=== PATIENT | female | born 1950 | race Hispanic/Latino ===

== ENCOUNTER 2019-08-31 10:44 | Observation (INO) | payer MEDICARE, OTHER ==
[~2019-08-31] VITALS: Ht 180.3 cm; Wt 81.6 kg
[~2019-08-31 10:44] MED LIST: AMIODARONE HCL200 MG PO; BUPROBAN150 MG; BUPROPION XL150 MG PO; CEFDINIR300 MG PO; CELEXA20 MG; GABAPENTIN300 MG PO; HUMALOG100 UNIT/1 SC; HYDROXYCHLOROQ200 MG; LANTUS100 UNITS/ SC; LASIX80 MG; LEVOTHYROXINE25 MCG PO; LEVOTHYROXINE50 MCG PO; LORAZEPAM0.5 MG PO; MECLIZINE HCL12.5 MG PO; NEUPRO1 EAC1 TD; NEURONTIN300 MG; NORVASC5 MG; PRAVASTATIN SOD40 MG; RENVELA800 MG; ULTRAM 50MG50 MG PO; ULTRAM50 MG PO; WARFARIN SODIUM3 MG PO; ZETIA10 MG PO
--- OUTSIDE RECORDS SUMMARY | 2019-08-31 10:47 | XMS REPORT ---
Author Author ERIN KOTHARI Organization Unknown Address Unknown Phone Care Team Providers Care Book Trimmer Name Role Phone TORRIE KOTHARI PP Unavailable Reason for Referral No Reason for Referral was given. History of Present Illness No HPI available. Problems * Normal Routine History And Physical Adult (V70.0); (Active) * Hypertension (401.9); (Active) * Diabetes Mellitus (250.00); (Active) * Atrial Fibrillation (427.31); (Active) * Adult Sleep Apnea (780.57); (Active) * Hypothyroidism (244.9); (Active) * Rheumatoid Arthritis (714.0); (Active) * Depression Chronic (311); (Active) Medication * Pravastatin Sodium 40 MG Oral Tablet (Active) * Amiodarone HCl 200 MG Oral Tablet; TAKE 1 TABLET DAILY. (Active) * Hydroxychloroquine Sulfate 200 MG Oral Tablet; TAKE 1 TABLET DAILY. (Active) * Warfarin Sodium 5 MG Oral Tablet; TAKE 1 TABLET DAILY (Active) * Furosemide 80 MG Oral Tablet; TAKE 1 TABLET DAILY. (Active) * BuPROPion HCl TABS; 150mg qd (Active) * Gabapentin 300 MG Oral Capsule; TAKE 1 CAPSULE BEDTIME (Active) * Lantus 100 UNIT/ML Subcutaneous Solution; INJECT 50 UNIT DAILY (Active) * Renvela 800 MG Oral Tablet; 4 tab per meal 2 tab per snack (Active) * Calcium 600 MG Oral Tablet; TAKE 1 TABLET DAILY. (Active) * Thyroid TABS; TAKE 1 TABLET DAILY (Active) * BuPROPion HCl ER (XL) 300 MG Oral Tablet Extended Release 24 Hour; TAKE 1 TABLET DAILY DIRECTED.; Start Date: 05/25/2013; End Date: 08/23/2013 (Active) Allergies and Adverse Reactions * Penicillins (Active) Past Medical History * History of Diabetes Mellitus (250.00); (Resolved) * History of Hypertension (401.9); (Resolved) * History of Anxiety (Symptom) (300.00); (Resolved) * History of Depression (311); (Resolved) * History of Arthritis (V13.4); (Resolved) * History of Gastric Ulcer (531.90); (Resolved) * History of Type 2 Diabetes Mellitus (250.00); (Resolved) * History of Functional Murmur (785.2); (Resolved) * History of Atrial Fibrillation (427.31); (Resolved) * History of Congestive Heart Failure (428.0); (Resolved) * History of Rheumatoid Arthritis (714.0); (Resolved) * History of Thyroid Disorder (246.9); (Resolved) * History of Vertigo (780.4); (Resolved) Procedures Procedure Procedure Date Date Completed Status Incisional Breast Biopsy - - Resolve d Dialysis - - Resolved Appendectomy - - Resolved Hysterectomy - - Resolved Section - - Resolved Tubal Ligation - - Resolved Neuroplasty Median Nerve At Carpal Tunnel - - Resolved Family History * Family history of Diabetes Mellitus (V18.0); (Active) * Paternal history of Hypertension (V17.49); (Active) * Maternal aunt's history of Colon Cancer (V16.0); (Active) * Maternal history of Type 2 Diabetes Mellitus (Active) * Paternal history of Type 2 Diabetes Mellitus (Active) Social History * Marital History - Currently (Active) * No History of Current Every Day Smoker (Denied) * Former Smoker (V15.82); (Active) * No History of Alcohol Use (Denied) * No History of Drug Use (Denied) * Physical Disability: (Active) Treatment Plan * [[facility]] TSH, 3RD GENERATION W/REFLEX TO FT4 05/25/2013 Routine * [[facility]] T4, FREE 05/25/2013 Routine * [[facility]] HEMOGLOBIN A1c 05/25/2013 Routine * [[facility]] CBC (INCLUDES DIFF/PLT) 05/25/2013 Routine * [Q] COMPREHENSIVE METABOLIC PANEL W/eGFR (REFL) 05/25/2013 Routine * [Q] LIPID PANEL WITH REFLEX TO DIRECT LDL 05/25/2013 Routine Advance Directives * No Advance Directives available. Encounters * AUDIT 05/26/2013
--- OUTSIDE RECORDS SUMMARY | 2019-08-31 10:47 | XMS REPORT ---
Author Author ERIN Sanchez Organization Unknown Address Unknown Phone Care Team Providers Care Production Officer Name Role Phone Jolie Sanchez PP Unavailable Reason for Referral No Reason for Referral was given. History of Present Illness No HPI available. Problems * Normal Routine History And Physical Adult (V70.0); (Active) * Diabetes Mellitus (250.00); (Active) * Hypertension (401.9); (Active) * Hypothyroidism (244.9); (Active) * Adult Sleep Apnea (780.57); (Active) * Rheumatoid Arthritis (714.0); (Active) * Atrial Fibrillation (427.31); (Active) * Depression Chronic (311); (Active) * Restless Legs Syndrome (333.94); (Active) Medication * Pravastatin Sodium 40 MG Oral Tablet; TAKE 1 TABLET DAILY AT BEDTIME.; Start Date: ; End Date: (Active) * Amiodarone HCl 200 MG Oral Tablet; TAKE 1 TABLET DAILY. (Active) * Warfarin Sodium 5 MG Oral Tablet; TAKE 1 TABLET DAILY (Active) * Lantus 100 UNIT/ML Subcutaneous Solution; INJECT 50 UNIT DAILY; Start Date: ; End Date: (Active) * Gabapentin 300 MG Oral Capsule; TAKE 1 CAPSULE BEDTIME; Start Date: ; End Date: (Active) * Renvela 800 MG Oral Tablet; 5 tab per meal 2 tab per snack (Active) * Furosemide 80 MG Oral Tablet; TAKE 1 TABLET TWICE DAILY (Active) * Hydroxychloroquine Sulfate 200 MG Oral Tablet; TAKE 1 TABLET TWICE DAILY.; Start Date: ; End Date: (Active) * Calcium 600 MG Oral Tablet; TAKE 1 TABLET DAILY. (Active) * BuPROPion HCl ER (XL) 300 MG Oral Tablet Extended Release 24 Hour; TAKE 1 TABLET DAILY DIRECTED.; Start Date: 05/25/2013; End Date: 08/23/2013 (Active) * Aspirin 81 MG Oral Tablet; TAKE 1 TABLET DAILY. (Active) * [place] Thyroid TABS; 5 mcg tab qd (Active) Allergies and Adverse Reactions * Penicillins [...] 3RD GENERATION W/REFLEX TO FT4 05/25/2013 Routine Advance Directives * No Advance Directives available. Encounters * AUDIT 06/08/2013
--- OUTSIDE RECORDS SUMMARY | 2019-08-31 10:47 | XMS REPORT ---
Author Author ERIN KOTHRAI Organization Unknown Address Unknown Phone Care Team Providers Care Automotive Maintenance Technician Name Role Phone TORRIE KOTHARI PP Unavailable [...] (427.31); (Active) * Depression Chronic (311); (Active) Medication [...] Capsule; TAKE 1 CAPSULE BEDTIME (Active) * Renvela 800 MG Oral Tablet; 4 tab per meal 2 tab per snack (Active) * Calcium 600 MG Oral Tablet; TAKE 1 TABLET DAILY. (Active) * Thyroid TABS; TAKE 1 TABLET DAILY (Active) * BuPROPion HCl ER (XL) 300 MG Oral Tablet Extended Release 24 Hour; TAKE 1 TABLET DAILY DIRECTED.; Start Date: 05/25/2013; End Date: 08/23/2013 (Active) * Lantus 100 UNIT/ML Subcutaneous Solution; INJECT 50 UNIT DAILY; Start Date: ; End Date: (Active) Allergies and Adverse Reactions * Penicillins [...] * Physical Disability: (Active) Treatment Plan * [[facility]] TSH, 3RD GENERATION W/REFLEX TO FT4 05/25/2013 Routine Advance Directives * No Advance Directives available. Encounters * AUDIT 06/01/2013
--- OUTSIDE RECORDS SUMMARY | 2019-08-31 10:47 | XMS REPORT ---
Author Author ERIN KOTHARI Organization Unknown Address Unknown Phone Care Team Providers Care Concrete Gun Operator Name Role Phone TORRIE KOTHARI PP Unavailable [...] * Physical Disability: (Active) Treatment Plan * [[facility]] TSH, 3RD GENERATION W/REFLEX TO FT4 05/25/2013 Routine Advance Directives * No Advance Directives available. Encounters * AUDIT 05/31/2013
--- OUTSIDE RECORDS SUMMARY | 2019-08-31 10:47 | XMS REPORT ---
Author Author ERIN Simpson Organization Unknown Address Unknown Phone Care Team Providers Care Marketing Strategy Lead Name Role Phone Ling Simpson PP Unavailable Reason for Referral No Reason for Referral was given. History of Present Illness No HPI available. Problems * Normal Routine History And Physical Adult (V70.0); (Active) * Hypertension (401.9); (Active) * Atrial Fibrillation (427.31); (Active) * Rheumatoid Arthritis (714.0); (Active) * Restless Legs Syndrome (333.94); (Active) * Vertigo (780.4); (Active) * Diabetes Mellitus (250.00); (Active) * Adult Sleep Apnea (780.57); (Active) * Hypothyroidism (244.9); (Active) * Depression Chronic (311); (Active) Medication * Pravastatin Sodium 40 MG Oral Tablet; TAKE 1 TABLET DAILY AT BEDTIME.; Start Date: ; End Date: (Active) * Amiodarone HCl 200 MG Oral Tablet; TAKE 1 TABLET DAILY. (Active) * Warfarin Sodium 5 MG Oral Tablet; TAKE 1 TABLET DAILY (Active) * Gabapentin 300 MG Oral Capsule; TAKE 1 CAPSULE BEDTIME; Start Date: ; End Date: (Active) * Lantus 100 UNIT/ML Subcutaneous Solution; INJECT 50 UNIT each morning and 10 units each evening; Start Date: ; End Date: (Active) * Renvela 800 MG Oral Tablet; 5 tab per meal 2 tab per snack (Active) * Furosemide 80 MG Oral Tablet; TAKE 1 TABLET TWICE DAILY (Active) * Hydroxychloroquine Sulfate 200 MG Oral Tablet; TAKE 1 TABLET TWICE DAILY.; Start Date: ; End Date: (Active) * BuPROPion HCl ER (XL) 300 MG Oral Tablet Extended Release 24 Hour; TAKE 1 TABLET DAILY DIRECTED.; Start Date: 05/25/2013; End Date: 08/23/2013 (Active) * Calcium 600 MG Oral Tablet; TAKE 1 TABLET DAILY. (Active) * Aspirin 81 MG Oral Tablet; TAKE 1 TABLET DAILY. (Active) * Levothyroxine Sodium 25 MCG Oral Tablet; TAKE 1 TABLET DAILY.; Start Date: 06/08/2013; End Date: (Active) * HumaLOG 100 UNIT/ML Subcutaneous Solution; Inject 10-20 units as directed; Start Date: 06/08/2013; End Date: (Active) * Meclizine HCl 12.5 MG Oral Tablet; TAKE 1 TABLET TWICE DAILY PRN dizziness; Start Date: 06/08/2013; End Date: (Active) Allergies and Adverse Reactions [...] * Physical Disability: (Active) Treatment Plan * [[facility]] TSH, 3RD GENERATION W/REFLEX TO FT4 05/25/2013 Routine Advance Directives * No Advance Directives available. Encounters * AUDIT 07/04/2013 * SHIRA, Provider: JEFF VALLEJO, Status: Emeterio, Time: 11:15 AM 07/04/2013 * SHIRA, Provider: JEFF VALLEJO, Status: Emeterio, Time: 9:15 AM 07/20/2013
--- OUTSIDE RECORDS SUMMARY | 2019-08-31 10:47 | XMS REPORT ---
Author Author YONI ERIN JEFF Organization Unknown Address Unknown Phone Care Team Providers Care Armature Winder Repair Helper Name Role Phone JEFF VALLEJO PP Unavailable Reason for Referral No Reason [...] Tablet; TAKE 1 TABLET DAILY. (Active) * Gabapentin 300 MG Oral Capsule; TAKE 1 CAPSULE BEDTIME (Active) * Renvela 800 MG Oral Tablet; 4 tab per meal 2 tab per snack (Active) * Lantus 100 UNIT/ML Subcutaneous Solution; [...] * Physical Disability: (Active) Treatment Plan * [[facility]] TSH, 3RD GENERATION W/REFLEX TO FT4 05/25/2013 Routine Advance Directives * No Advance Directives available. Encounters * AUDIT 06/06/2013
--- OUTSIDE RECORDS SUMMARY | 2019-08-31 10:47 | XMS REPORT | Continuity of Care Document ---
Author Author [facility] Organization [facility] Address Unknown Phone Unavailable Care Team Providers Care Disaster Director Name Role Phone [employer] Unavailable Un available Problems Problem Status Onset Date Classification Date Reported Comments Source Hypertension Active 07/04/2013 [facility] Diabetes Mellitus Active 07/04/2013 [facility] Atrial Fibrillation Active 07/04/2013 [facility] Adult Sleep Apnea Active 07/04/2013 [facility] Hypothyroidism Active 07/04/2013 [facility] Rheumatoid Arthritis Active 07/04/2013 [facility] Depression Chronic Active 07/04/2013 [facility] Restless Legs Syndrome Active 07/04/2013 [facility] Vertigo Active 07/04/2013 [facility] Medications Medication Details Route Status Patient Instructions Ordering Provider Order Date Source Levothyroxine Sodium 25 MCG Oral Tablet ; Start Date: 06/08/2013; End Date: (Active) Active 06/08/2013 [facility] HumaLOG 100 UNIT/ML Subcutaneous Solution ; Start Date: 06/08/2013; End Date: (Active) Active 06/08/2013 [facility] Meclizine HCl 12.5 MG Oral Tablet ; Start Date: 06/08/2013; End Date: (Active) Active 06/08/2013 [facility] BuPROPion HCl ER (XL) 300 MG Oral Tablet Extended Release 24 Hour ; Start Date: 05/25/2013; End Date: 07/28 (Active) Active 05/25/2013 [facility] BuPROPion HCl ER (XL) 300 MG Oral Tablet Extended Release 24 Hour ; Start Date: 05/25/2013; End Date: 07/28 (Active) Active 05/25/2013 [facility] Lantus 100 UNIT/ML Subcutaneous Solution ; Start Date: ; End Date: (Active) Inactive [facility] Pravastatin Sodium 40 MG Oral Tablet ; Start Date: ; End Date: (Active) Inactive [facility] Gabapentin 300 MG Oral Capsule ; Start Date: ; End Date: (Active) Inactive [facility] Hydroxychloroquine Sulfate 200 MG Oral Tablet ; Start Date: ; End Date: (Active) Inactive [facility] Pravastatin Sodium 40 MG Oral Tablet (Active) Active [facility] Amiodarone HCl 200 MG Oral Tablet (Active) Active [facility] Hydroxychloroquine Sulfate 200 MG Oral Tablet (Active) Active [facility] Warfarin Sodium 5 MG Oral Tablet (Active) Active [facility] Furosemide 80 MG Oral Tablet (Active) Active [facility] BuPROPion HCl TABS (Active) Active [facility] Gabapentin 300 MG Oral Capsule (Active) Active [facility] Lantus 100 UNIT/ML Subcutaneous Solution (Active) Active [facility] Renvela 800 MG Oral Tablet (A ctive) Active [facility] Calcium 600 MG Oral Tablet (A ctive) Active [facility] Thyroid TABS (Active) Active [facility] Aspirin 81 MG Oral Tablet (Ac tive) Active [facility] [place] Thyroid TABS (Active) Active [facility] Allergies, Adverse Reactions, Alerts Substance Category Reaction Severity Reaction type Status Date Reported Comments Source Penicillins drug allergy drug allergy Active [facility] Immunizations No Data Provided for This Section Results No Data Provided for This Section Pathology Reports No Data Provided for This Section Diagnostic Reports No Data Provided for This Section Consultation Notes No Data Provided for This Section Discharge Summaries No Data Provided for This Section History and Physicals No Data Provided for This Section Vital Signs No Data Provided for This Section Encounters Location Location Details Encounter Type Encounter Number Reason For Visit Attending Provider ADM Date DC Date Status Source AUDIT [id number] 05/26/2013 05/26/2013 [facility] AUDIT [id number] 05/31/2013 05/31/2013 [facility] AUDIT [id number] 06/01/2013 06/01/2013 [facility] AUDIT [id number] 06/06/2013 06/06/2013 [facility] AUDIT [id number] 06/08/2013 06/08/2013 [facility] AUDIT [id number] 07/04/2013 07/04/2013 [facility] Shante SILVA monique: JEFF VALLEJO, Status: Pen, Time: 11:15 AM [id number] 07/05/19 14 07/04/2013 [facility] Shante SILVA monique: [email or web address], Status: Pen, Time: 9:15 AM [id number] 07/21/19 14 07/04/2013 [facility] Procedures No Data Provided for This Section Assessment and Plan No Data Provided for This Section Plan of Care Plan of Care Date Source [[facility]] TSH, 3RD GENERATION W/REFLEX TO FT 4 05/25/2013 Routine 07/04/2013 [facility] [QL] TSH, 3RD GENERATION W/REFLEX TO FT 4 05/25/2013 Routine 06/08/2013 [facility] [QL] TSH, 3RD GENERATION W/REFLEX TO FT 4 05/25/2013 Routine 06/06/2013 [facility] [QL] TSH, 3RD GENERATION W/REFLEX TO FT 4 05/25/2013 Routine 06/01/2013 [facility] [[facility]] TSH, 3RD GENERATION W/REFLEX TO FT 4 05/25/2013 Routine 05/31/2013 [facility] [QL] TSH, 3RD GENERATION W/REFLEX TO FT 4 05/25/2013 Routine[[facility]] T4, FREE 05/25/2013 Routine[[facility]] HEMOGLOBIN A1c 05/25/2013 Routine[[facility]] CBC (INCLUDES DIFF/PLT) 05/25/2013 Routine[Q] COMPREHENSIVE METABOLIC PANEL W/eGFR (REFL) 05/25/2013 Routine[Q] LIPID PANEL WITH REFLEX TO DIRECT LDL 05/25/2013 Routine 05/26/2013 [facility] Social History Social History Date Source Marital History - Currently (Active) No History of Current Every Day Smoker (Denied) Former Smoker (V15.82); (Active) No History of Alcohol Use (Denied) No History of Drug Use (Denied) Physical Disability: (Active) 07/04/2013 [facility] Family History Value Date S ource Family history of Diabetes Mellitus (V18 .0); (Active) Paternal history of Hypertension (V17.49); (Active) Maternal aunt's history of Colon Cancer (V16.0); (Active) Maternal history of Type 2 Diabetes Mellitus (Active) Paternal history of Type 2 Diabetes Mellitus (Active) 07/04/2013 [facility] Family history of Diabetes Mellitus (V18 .0); (Active) Paternal history of Hypertension (V17.49); (Active) Maternal aunt's history of Colon Cancer (V16.0); (Active) Maternal history of Type 2 Diabetes Mellitus (Active) Paternal history of Type 2 Diabetes Mellitus (Active) 06/08/2013 [facility] Family history of Diabetes Mellitus (V18 .0); (Active) Paternal history of Hypertension (V17.49); (Active) Maternal aunt's history of Colon Cancer (V16.0); (Active) Maternal history of Type 2 Diabetes Mellitus (Active) Paternal history of Type 2 Diabetes Mellitus (Active) 06/06/2013 [facility] Family history of Diabetes Mellitus (V18 .0); (Active) Paternal history of Hypertension (V17.49); (Active) Maternal aunt's history of Colon Cancer (V16.0); (Active) Maternal history of Type 2 Diabetes Mellitus (Active) Paternal history of Type 2 Diabetes Mellitus (Active) 06/01/2013 [facility] Family history of Diabetes Mellitus (V18 .0); (Active) Paternal history of Hypertension (V17.49); (Active) Maternal aunt's history of Colon Cancer (V16.0); (Active) Maternal history of Type 2 Diabetes Mellitus (Active) Paternal history of Type 2 Diabetes Mellitus (Active) 05/31/2013 [facility] Family history of Diabetes Mellitus (V18 .0); (Active) Paternal history of Hypertension (V17.49); (Active) Maternal aunt's history of Colon Cancer (V16.0); (Active) Maternal history of Type 2 Diabetes Mellitus (Active) Paternal history of Type 2 Diabetes Mellitus (Active) 05/26/2013 [facility] Advance Directives Order Name Results Value Date Source Advance Directives Advance Dir ectives No Advance Directives available. 07/04/2013 [facility] Advance Directives Advance Dir ectives No Advance Directives available. 06/08/2013 [facility] Advance Directives Advance Dir ectives No Advance Directives available. 06/06/2013 [facility] Advance Directives Advance Dir ectives No Advance Directives available. 06/01/2013 [facility] Advance Directives Advance Dir ectives No Advance Directives available. 05/31/2013 [facility] Advance Directives Advance Dir ectives No Advance Directives available. 05/26/2013 [facility] Functional Status No Data Provided for This Section
--- OUTSIDE RECORDS SUMMARY | 2019-08-31 10:50 | XMS REPORT | Continuity of Care Document ---
Author Author [facility] t Organization [facility] Address [address] [place] [address] Phone Unavailable Care Team Providers Care Data Conversion Operator Name Role Phone Gene RUSSELL PCP Melody LEI Attphys Unavailable Payers Payer Name Policy Type Policy Number Effective Date Expiration Date [facility] Medicare A & B [id number] 2011 00:00:00 [facility] Problems Condition Name Condition Details Condition Category Status Onset Date Resolution Date Last Treatment Date Treating Clinician Comments Source End stage renal failure on dialysis ESRD (end stage renal di sease) on dialysis Problem Active [facility] Hyperkalemia Hyperkalemia Problem Active [facility] Hypervolemia Volume overload Problem Active [facility] Weakness Weakness Problem Active [facility] Hypertension Hype rtension Active 07/04/2013 [facility] Problem Active 2013-07-04 14:19:12 [facility] Diabetes Mellitus Diab etes Mellitus Active 07/04/2013 [facility] Problem Active 2013-07-04 14:19:12 [facility] Atrial Fibrillation Atri al Fibrillation Active 07/04/2013 [facility] Problem Active 2013-07-04 14:19:12 [facility] Adult Sleep Apnea Adul t Sleep Apnea Active 07/04/2013 [facility] Problem Active 2013-07-04 14:19:12 [facility] Hypothyroidism Hypo thyroidism Active 07/04/2013 [facility] Problem Active 2013-07-04 14:19:12 [facility] Rheumatoid Arthritis Rheu matoid Arthritis Active 07/04/2013 [facility] Problem Active 2013-07-04 14:19:12 [facility] Depression Chronic Depr ession Chronic Active 07/04/2013 [facility] Problem Active 2013-07-04 14:19:12 [facility] Restless Legs Syndrome Rest less Legs Syndrome Active 07/04/2013 [facility] Problem Active 2013-07-04 14:19:12 [facility] Vertigo Vert igo Active 07/04/2013 [facility] Problem Active 2013-07-04 14:19:12 [facility] Allergies, Adverse Reactions, Alerts Allergy Name Allergy Type Status Severity Reaction(s) Onset Date Inacti ve Date Treating Clinician Comments Source Penicillins DA Active SV 2019-04-14 00:00:00 [facility] morphine DA Active [place] 2019-04-14 00:00:00 [facility] Penicillins DA Active U 2019-03-05 00:00:00 [facility] Penicillins DA Active U 2019-03-02 00:00:00 [facility] Penicillins DA Active SV 2018-11-14 00:00:00 [facility] morphine DA Active MO 2018-11-14 00:00:00 [facility] Penicillins DA Active SV 2018-09-14 00:00:00 [facility] morphine DA Active MO 2018-09-14 00:00:00 [facility] morphine DA Active MO 2018-09-07 00:00:00 [facility] Penicillins DA Active SV 2018-09-03 00:00:00 [facility] Penicillins DA Active SV 2018-08-25 00:00:00 [facility] Penicillins DA Active SV 2018-01-10 00:00:00 [facility] Penicillins DA Active SV 2017-11-19 00:00:00 [facility] Penicillin Allergy to Substance Active Mild 2009-02-21 00:00:00 [facility] Penicillins Penicillins Active [facility] Social History Social Habit Start Date Stop Date Quantity Comments Source Social History 2013-07-04 14:19:12 2013-07-04 14:19:12 [facility] Medications Ordered Medication Name Filled Medication Name Start Date Stop Da te Current Medication? Ordering Clinician Indication Dosage Frequency Signature (SIG) Comments Components Source Levothyroxine Sodium 25 Mcg Tablet Levothyroxine Sodium 25 M cg Tablet 2019-04-11 00:00:00 Yes Sandip Cheng Fruit Culler 25 Daily@06 [facility] Tramadol Hcl (Ultram 50MG*) 50 Mg Tab Tramadol Hcl (Ultram 5 0MG*) 50 Mg Tab 2019-04-11 00:00:00 Yes Sandip Cheng Fruit Culler 50 Every 6 Hours as needed for Mild Pain (1-3) Or Fever>100.8 [facility] Amiodarone HCl 200 MG Oral Tablet 2013-07-04 14:19:12 Yes (Active) [facility] Warfarin Sodium 5 MG Oral Tablet 2013-07-04 14:19:12 Yes (Active) [facility] Furosemide 80 MG Oral Tablet 2013-07-04 14:19:12 Yes (Active) [facility] Renvela 800 MG Oral Tablet 2013-07-04 14:19:12 Yes (Active) [facility] Calcium 600 MG Oral Tablet 2013-07-04 14:19:12 Yes (Active) [facility] Aspirin 81 MG Oral Tablet 2013-07-04 14:19:12 Yes (Active) [facility] Holcomb Thyroid TABS 2013-06-08 15:02:07 Yes (Active) [facility] Levothyroxine Sodium 25 MCG Oral Tablet 2013-06-08 05:00:00 Yes ; Start Date: 06/08/2013; End Date: (Active) [facility] HumaLOG 100 UNIT/ML Subcutaneous Solution 2013-06-08 05:00:00 Yes ; Start Date: 06/08/2013; End Date: (Active) [facility] Meclizine HCl 12.5 MG Oral Tablet 2013-06-08 05:00:00 Yes ; Start Date: 06/08/2013; End Date: (Active) [facility] Pravastatin Sodium 40 MG Oral Tablet 2013-06-06 13:47:48 Ye s (Active) [facility] Hydroxychloroquine Sulfate 200 MG Oral Tablet 2013-06-06 13:47:4 8 Yes (Active) [facility] Gabapentin 300 MG Oral Capsule 2013-06-06 13:47:48 Yes (Active) [facility] Thyroid TABS 2013-06-06 13:47:48 Yes (Activ e) [facility] BuPROPion HCl TABS 2013-06-01 17:06:21 Yes (Active) [facility] Lantus 100 UNIT/ML Subcutaneous Solution 2013-05-31 20:03:28 Yes (Active) [facility] BuPROPion HCl ER (XL) 300 MG Oral Tablet Extended Release 24 Hour 2013-05-25 06:00:00 Yes ; Start Date: 4; End Date: 08/23/2013 (Active) [facility] BuPROPion HCl ER (XL) 300 MG Oral Tablet Extended Release 24 Hour 2013-05-25 06:00:00 Yes ; Start Date: 4; End Date: 08/23/2013 (Active) [facility] Lantus 100 UNIT/ML Subcutaneous Solution Yes ; Start Date: ; End Date: (Active) [facility] Pravastatin Sodium 40 MG Oral Tablet Ye s ; Start Date: ; End Date: (Active) [facility] Gabapentin 300 MG Oral Capsule Yes ; Start Date: ; End Date: (Active) [facility] Hydroxychloroquine Sulfate 200 MG Oral Tablet 06:00:0 0 Yes ; Start Date: ; End Date: (Active) [facility] Amiodarone Hcl 200 Mg Tablet Amiodarone Hcl 200 Mg Tablet Y es 100 Daily [facility] Bupropion Hcl (Bupropion Xl) 150 Mg Tab.er.24h Bupropi on Hcl (Bupropion Xl) 150 Mg Tab.er.24h Yes 300 Daily [facility] Ezetimibe (Zetia) 10 Mg Tablet Ezetimibe (Zetia) 10 Mg Tablet Yes 10 Daily [facility] Furosemide (Lasix) 80 Mg Tablet Furosemide (Lasix) 80 Mg Tablet Yes Daily [facility] Gabapentin 300 Mg Capsule Gabapentin 300 Mg Capsule Yes 300 Twice A Day [facility] Insulin Glargine (Lantus) 100 Units/Ml Ml Insulin Glar gine (Lantus) 100 Units/Ml Ml Yes 45 Bedtime [facility] Insulin Lispro (Humalog) 100 Unit/1 Ml Cartridge Insul in Lispro (Humalog) 100 Unit/1 Ml Cartridge Yes 12 Three Times A Day [facility] Levothyroxine Sodium 50 Mcg Tablet Levothyroxine Sodium 50 Mcg Tablet Yes 25 Daily [facility] Lorazepam 0.5 Mg Tablet Lorazepam 0.5 Mg Tablet Yes .5 Twice A Day [facility] Meclizine Hcl 12.5 Mg Tablet Meclizine Hcl 12.5 Mg Tablet Y es 25 Three Times A Day as needed for Prn [facility] Pravastatin Sodium 40 Mg Tablet Pravastatin Sodium 40 Mg Tablet Yes Bedtime [facility] Rotigotine (Neupro) 1 Each Patch.td24 Rotigotine (Neupro) 1 Each Pa tch.td24 Yes 4 Daily [facility] Sevelamer Hcl (Renvela) 800 Mg Tab Sevelamer Hcl (Renvela) 800 Mg Tab Yes Three Tabs Withmeal [facility] Tramadol Hcl (Ultram) 50 Mg Tablet Tramadol Hcl (Ultram) 50 Mg Tablet Yes 50 Every 6 Hours [facility] Warfarin Sodium 3 Mg Tablet Warfarin Sodium 3 Mg Tablet Yes 6 Daily [facility] Cefdinir (Omnicef) 300 Mg Capsule, 300 Mg Oral Cefdini r (Omnicef) 300 Mg Capsule, 300 Mg Oral 2019-04-11 00:00:00 No 300 Queenie ry Other Day [facility] Amlodipine Besylate (Norvasc) 5 Mg Tab, Amlodipine Besylate (Norvasc) 5 Mg Tab, 2016-01-25 00:00:00 No Daily [facility] Bupropion Hcl (Buproban) 150 Mg Tablet.er, Bupropion H cl (Buproban) 150 Mg Tablet.er, 2016-01-25 00:00:00 No Daily [facility] Citalopram Hydrobromide (Celexa) 20 Mg Tablet, Citalop tonya Hydrobromide (Celexa) 20 Mg Tablet, 2016-01-25 00:00:00 No Two Tabs D aily [facility] Gabapentin (Neurontin) 300 Mg Capsule, Gabapentin (Neurontin) 30 0 Mg Capsule, 2016-01-25 00:00:00 No Bedtime [facility] Hydroxychloroquine Sulfate 200 Mg Tablet, Hydroxychlor oquine Sulfate 200 Mg Tablet, 2016-01-25 00:00:00 No Daily [facility] Procedures This patient has no known procedures. Plan of Care Planned Activity Planned Date Details Comments Source Future Scheduled Test Plan of Care [code = 42129-8] [facility] Future Scheduled Test Plan of Care [code = 75378-8] [facility] Future Scheduled Test Plan of Care [code = 41877-3] [facility] Future Scheduled Test Plan of Care [code = 83428-7] [facility] Future Scheduled Test Plan of Care [code = 16501-5] [facility] Scheduled Test Plan of Care [code = 60964-1] [facility] Encounters Start Date/Time End Date/Time Encounter Type Admission Type Attendi [facility] Facility Care Department Encounter ID Source 2019-04-09 13:37:00 2019-04-11 12:22:00 Discharged Inpatient (obs) 1 DANA LEI [facility] [id number] [facility] 2019-04-06 12:09:00 2019-04-06 15:37:00 Departed Emergency Room [facility] [id number] [facility] 2013-07-20 09:15:00 2013-07-04 14:19:12 EGV, Provider: Abdiel VALLEJO, Status: Pen, Time: 9:15 AM IEALT MHIEALT [id number] [facility] 2013-07-04 11:15:00 2013-07-04 14:19:12 EGV, Provider: Abdiel VALLEJO, Status: Pen, Time: 11:15 AM MHIEALT MHIEALT [id number] [facility] 2013-07-04 09:19:13 2013-07-04 14:19:12 AUDIT MHIEALT MHIEALT [id number] [facility] 2013-07-04 09:19:13 2013-07-04 09:19:12 Outpatient MHIEA LT MHIEALT [id number] 2013-06-08 10:02:07 2013-06-08 15:02:07 AUDIT MHIEALT MHIEALT [id number] [facility] 2013-06-08 10:02:07 2013-06-08 10:02:07 Outpatient MHIEA LT MHIEALT [id number] 2013-06-06 08:47:49 2013-06-06 13:47:48 AUDIT MHIEALT MHIEALT [id number] [facility] 2013-06-06 08:47:49 2013-06-06 08:47:48 Outpatient MHIEA LT MHIEALT [id number] 2013-06-01 11:06:22 2013-06-01 17:06:21 AUDIT MHIEALT MHIEALT [id number] [facility] 2013-06-01 11:06:22 2013-06-01 11:06:21 Outpatient MHIEA LT MHIEALT [id number] 2013-05-31 14:03:28 2013-05-31 20:03:28 AUDIT MHIEALT MHIEALT [id number] [facility] 2013-05-31 14:03:28 2013-05-31 14:03:28 Outpatient MHIEA LT MHIEALT [id number] 2013-05-26 11:21:12 2013-05-26 17:21:12 AUDIT MHIEALT MHIEALT [id number] [facility] 2013-05-26 11:21:12 2013-05-26 11:21:12 Outpatient MHIEA LT MHIEALT [id number] Results Test Description Test Time Test Comments Results Result Comments Source PROTHROMBIN TIME 2019-05-30 16:51:00 Test Item PROTHROMBIN TIME PATIENT (test code = PTP) 14.0 seconds 9.0-14.0 N INTERNATIONAL NORMAL RATIO (test code = INR) 1.2 0.8-1.2 N The therapeutic range for oral anticoagulant therapy formost indications is an international normalized ratio (INR)of between 2.0 and 3.0. The recommended therapeutic INRrange for various clinical situations is listed below: Clinical Situation INR range Pulmonary e mbolism treatment (2.0-3.0)Venous thrombosis treatmentVenous thrombosis prophylaxis (high risk surgery)Prevention of systemic embolism from: Acute myocardial infarction Valvular heart disease Atrial fibrillation Mechanical prosthetic heart valves (2.5-3.5) PROTHROMBIN [id number] 13:24:00* Test Item Value Reference Range Interpretation Comments PROTHROMBIN TIME PATIENT (test code = PTP) 16.0 seconds 9.0-14.0 H INTERNATIONAL NORMAL RATIO (test code = INR) 1.4 0.8-1.2 H The therapeutic range for oral anticoagulant therapy formost indications is an international normalized ratio (INR)of between 2.0 and 3.0. The recommended therapeutic INRrange for various clinical situations is listed below: Clinical Situation INR range Pulmonary e mbolism treatment (2.0-3.0)Venous thrombosis treatmentVenous thrombosis prophylaxis (high risk surgery)Prevention of systemic embolism from: Acute myocardial infarction Valvular heart disease Atrial fibrillation Mechanical prosthetic heart valves (2.5-3.5) [id number] 17:13:00* Test Item Value Reference Range Interpretation Comments GLUBED (test code = GLUBED) 116 mg/dL 74-106 H Performed by certified call center operator at [facility] [id number] 11:27:00* Test Item Value Reference Range Interpretation Comments GLUBED (test code = GLUBED) 118 mg/dL 74-106 H Performed by certified call center operator at [facility] PROTHROMBIN [id number] 07:39:00* Test Item Value Reference Range Interpretation Comments PROTHROMBIN TIME PATIENT (test code = PTP) 14.0 seconds 9.0-14.0 N INTERNATIONAL NORMAL RATIO (test code = INR) 1.2 0.8-1.2 N The therapeutic range for oral anticoagulant therapy formost indications is an international normalized ratio (INR)of between 2.0 and 3.0. The recommended therapeutic INRrange for various clinical situations is listed below: Clinical Situation INR range Pulmonary e mbolism treatment (2.0-3.0)Venous thrombosis treatmentVenous thrombosis prophylaxis (high risk surgery)Prevention of systemic embolism from: Acute myocardial infarction Valvular heart disease Atrial fibrillation Mechanical prosthetic heart valves (2.5-3.5) IS PATIENT ON ANTICOAGULANTS? YLIST ANTICOAGULANTS [id number] 06:12:00* Test Item Value Reference Range Interpretation Comments GLUBED (test code = GLUBED) 116 mg/dL 74-106 H Performed by certified call center operator at [facility] [id number] 21:45:00* Test Item Value Reference Range Interpretation Comments GLUBED (test code = GLUBED) 185 mg/dL 74-106 H Performed by certified call center operator at [facility] [id number] 21:21:00* Test Item Value Reference Range Interpretation Comments GLUBED (test code = GLUBED) 137 mg/dL 74-106 H Performed by certified call center operator at [facility] [id number] 14:05:00* Test Item Value Reference Range Interpretation Comments GLYCOSYLATED HEMOGLOBIN (HA1C) (test code = GLYHGB) 7.5 % HbA1 SUGGESTED DIAGNOSIS: HbA1C (%) Diabetic >6.4Prediabetes 5.7 - 6.4Normal <5.7 ESTIMATED AVERAGE GLUCOSE (test code = EAG) 169 MG/DL T4 [id number] 14:05:00* Test Item Value Reference Range Interpretation Comments T4 FREE (test code = T4F) 1.31 ng/dL 0.76-1.46 N THYROID STIMULATING [id number] 14:05:00* Test Item Value Reference Range Interpretation Comments THYROID STIMULATING HORMONE (test code = TSH) 3.730 uIU/mL 0.36-3.7 4 N TSH REFERENCE RANGES: EUTHYROID: 0.35 - 4.3 mIU/mL HYPO : > 5.5 mIU/mL HYPER : < 0.35 mIU/mL BASIC METABOLIC [id number] 10:24:00* Test Item Value Reference Range Interpretation Comments SODIUM (test code = NA) 137 mmol/L 136-145 N POTASSIUM (test code = K) 4.9 mmol/L 3.5-5.1 N CHLORIDE (test code = CL) 100.0 mmol/L 98-107 N CARBON DIOXIDE (test code = CO2) 25.0 mmol/L 21-32 N ANION GAP (test code = GAP) 16.9 10-20 N GLUCOSE (test code = GLU) 210 mg/dL 74-106 H BLOOD UREA NITROGEN (test code = BUN) 83 mg/dL 7-18 H GLOMERULAR FILTRATION RATE (test code = GFR) 5 mL/min >=60 Estimated GFR by using Modified MDRD formula.Chronic kidney disease is defined as either kidney damageor GFR <60 mL/min/1.73 m2 for >3 months. CREATININE (test code = CREAT) 7.60 mg/dL 0.55-1.02 H Note change in reference range due to change in reagent. BUN/CREATININE RATIO (test code = BUN/CREA) 10.9 10-20 N CALCIUM (test code = CA) 7.7 mg/dL 8.5-10.1 L BASIC METABOLIC [id number] 10:20:00* Test Item Value Reference Range Interpretation Comments SODIUM (test code = NA) 137 mmol/L 136-145 N POTASSIUM (test code = K) 4.9 mmol/L 3.5-5.1 N CHLORIDE (test code = CL) 100.0 mmol/L 98-107 N CARBON DIOXIDE (test code = CO2) mmol/L 21-32 ANION GAP (test code = GAP) 10-20 GLUCOSE (test code = GLU) mg/dL 74-106 BLOOD UREA NITROGEN (test code = BUN) mg/dL 7-18 GLOMERULAR FILTRATION RATE (test code = GFR) mL/min >=60 CREATININE (test code = CREAT) mg/dL 0.55-1.02 BUN/CREATININE RATIO (test code = BUN/CREA) 10-20 CALCIUM (test code = CA) 7.7 mg/dL 8.5-10.1 L CBC W/AUTO [id number] 10:11:00* Test Item Value Reference Range Interpretation Comments WHITE BLOOD CELL (test code = WBC) 6.2 K/mm3 4.5-12.5 N RED BLOOD CELL (test code = RBC) 4.26 mill/mm3 3.7-5.2 N HEMOGLOBIN (test code = HGB) 11.1 gram/dL 11.5-15.5 L HEMATOCRIT (test code = HCT) 36.0 % 36.0-46.0 N MEAN CELL VOLUME (test code = MCV) 84.5 fL 80-98 N MEAN CELL HGB (test code = MCH) 26.1 picogram 27.0-33.0 L MEAN CELL HGB CONCETRATION (test code = MCHC) 30.8 gram/dL 33.0-36. 0 L RED CELL DISTRIBUTION WIDTH (test code = RDW) 18.0 % 11.6-16. 2 H RED CELL DISTRIBUTION WIDTH SD (test code = RDW-SD) 54.8 fL 37 .0-51.0 H PLATELET COUNT (test code = PLT) 166 K/mm3 150-450 N MEAN PLATELET VOLUME (test code = MPV) 10.6 fL 6.7-11.0 N NEUTROPHIL % (test code = NT%) 76.4 % 39.0-69.0 H IMMATURE GRANULOCYTE % (test code = IG%) 0.2 % 0.0-5.0 N LYMPHOCYTE % (test code = LY%) 14.2 % 25.0-55.0 L MONOCYTE % (test code = MO%) 6.5 % 0.0-10.0 N EOSINOPHIL % (test code = EO%) 2.1 % 0.0-5.0 N BASOPHIL % (test code = BA%) 0.6 % 0.0-1.0 N NUCLEATED RBC % (test code = NRBC%) 0.0 % 0-0 N NEUTROPHIL # (test code = NT#) 4.74 K/mm3 1.8-7.7 N IMMATURE GRANULOCYTE # (test code = IG#) 0.01 x10 3/uL 0-0.03 N LYMPHOCYTE # (test code = LY#) 0.88 K/mm3 1.0-5.0 L MONOCYTE # (test code = MO#) 0.40 K/mm3 0-0.8 N EOSINOPHIL # (test code = EO#) 0.13 K/mm3 0.0-0.5 N BASOPHIL # (test code = BA#) 0.04 K/mm3 0.0-0.2 N NUCLEATED RBC # (test code = NRBC#) 0.00 K/mm3 0.0-0.1 N CPK-MB [id number] 09:13:00* Test Item Value Reference Range Interpretation Comments CREATINE KINASE (CK) (test code = CK) 37 IUnit/L 26-208 N CKMB (test code = CKMBT) 2.7 ng/mL 0-6.0 N RELATIVE % INDEX (test code = REL%) 7.30 % 0.00-2.50 H "If the total CK is elevated, the CKMB Fraction must beinterpreted as a Relative % Index, Normal is less than 2.5%"NOTE: Relative % Index is not valid with a normal total CK. PROTHROMBIN [id number] 09:05:00* Test Item Value Reference Range Interpretation Comments PROTHROMBIN TIME PATIENT (test code = PTP) 14.4 seconds 9.0-14.0 H INTERNATIONAL NORMAL RATIO (test code = INR) 1.2 0.8-1.2 N The therapeutic range for oral anticoagulant therapy formost indications is an international normalized ratio (INR)of between 2.0 and 3.0. The recommended therapeutic INRrange for various clinical situations is listed below: Clinical Situation INR range Pulmonary e mbolism treatment (2.0-3.0)Venous thrombosis treatmentVenous thrombosis prophylaxis (high risk surgery)Prevention of systemic embolism from: Acute myocardial infarction Valvular heart disease Atrial fibrillation Mechanical prosthetic heart valves (2.5-3.5) IS PATIENT ON ANTICOAGULANTS? YLIST ANTICOAGULANTS [id number] 2019-04-26 16:50:00* Test Item Value Reference Range Interpretation Comments TROPONIN-I (test code = TROPI) 0.345 ng/mL 0-0.045 HH Results called to [id number] by [email or web address] 04/26/19 1645Critical results verified and read back by Nurse? Y COMMENTS TO ANGLE SHEAR OPERATOR: COLLECT 3 HOURS AFTER PREVIOUS [id number] 14:06:00* Test Item Value Reference Range Interpretation Comments TROPONIN-I (test code = TROPI) 0.354 ng/mL 0-0.045 HH Results called to [id number] by [employer] 04/26/19 1355Critical results verified and read back by Nurse?Y COMMENTS TO ANGLE SHEAR OPERATOR: COLLECT 3 HOURS AFTER PREVIOUS SAMPLEPROTHROMBIN [id number] 13:47:00* Test Item Value Reference Range Interpretation Comments PROTHROMBIN TIME PATIENT (test code = PTP) 14.7 seconds 9.0-14.0 H INTERNATIONAL NORMAL RATIO (test code = INR) 1.3 0.8-1.2 H The therapeutic range for oral anticoagulant therapy formost indications is an international normalized ratio (INR)of between 2.0 and 3.0. The recommended therapeutic INRrange for various clinical situations is listed below: Clinical Situation INR range Pulmonary e mbolism treatment (2.0-3.0)Venous thrombosis treatmentVenous thrombosis prophylaxis (high risk surgery)Prevention of systemic embolism from: Acute myocardial infarction Valvular heart disease Atrial fibrillation Mechanical prosthetic heart valves (2.5-3.5) IS PATIENT ON ANTICOAGULANTS? YLIST ANTICOAGULANTS [id number] 11:49:00* Test Item Value Reference Range Interpretation Comments GLUBED (test code = GLUBED) 131 mg/dL 74-106 H Performed by certified call center operator at [facility] AG HEPAT B [id number] 08:31:00* Test Item Value Reference Range Interpretation Comments AG HEPAT B SURF (test code = HBSAG) Nonreactive Index Nonreactive [id number] 05:38:00* Test Item Value Reference Range Interpretation Comments MAGNESIUM (test code = MAG) 2.3 mg/dL 1.8-2.4 N THYROID PROFILE [id number] 05:38:00* Test Item Value Reference Range Interpretation Comments T3 UPTAKE (test code = T3UP) 34.0 % 30.0-40.0 N T4 (THYROXINE) (test code = T4) 10.2 ug/dL 4.5-13.9 N T7 (FREE THYROXINE INDEX) (test code = T7) 3.46 FTI 1.3-5.1 N THYROID STIMULATING HORMONE (test code = TSH) 4.540 uIU/mL 0.36-3.7 4 H TSH REFERENCE RANGES: EUTHYROID: 0.35 - 4.3 mIU/mL HYPO : > 5.5 mIU/mL HYPER : < 0.35 mIU/mL BASIC METABOLIC [id number] 05:10:00* Test Item Value Reference Range Interpretation Comments SODIUM (test code = NA) 134 mmol/L 136-145 L POTASSIUM (test code = K) 4.4 mmol/L 3.5-5.1 N CHLORIDE (test code = CL) 96.0 mmol/L 98-107 L CARBON DIOXIDE (test code = CO2) 26.0 mmol/L 21-32 N ANION GAP (test code = GAP) 16.4 10-20 N GLUCOSE (test code = GLU) 199 mg/dL 74-106 H BLOOD UREA NITROGEN (test code = BUN) 82 mg/dL 7-18 H GLOMERULAR FILTRATION RATE (test code = GFR) 6 mL/min >=60 Estimated GFR by using Modified MDRD formula.Chronic kidney disease is defined as either kidney damageor GFR <60 mL/min/1.73 m2 for >3 months. CREATININE (test code = CREAT) 6.80 mg/dL 0.55-1.02 H Note change in reference range due to change in reagent. BUN/CREATININE RATIO (test code = BUN/CREA) 12.1 10-20 N CALCIUM (test code = CA) 7.8 mg/dL 8.5-10.1 L [id number] 05:10:00* Test Item Value Reference Range Interpretation Comments TROPONIN-I (test code = TROPI) 0.017 ng/mL 0-0.045 N CBC W/O [id number] 05:10:00* Test Item Value Reference Range Interpretation Comments WHITE BLOOD CELL (test code = WBC) 6.6 K/mm3 4.5-12.5 N RED BLOOD CELL (test code = RBC) 4.50 mill/mm3 3.7-5.2 N HEMOGLOBIN (test code = HGB) 11.6 gram/dL 11.5-15.5 N HEMATOCRIT (test code = HCT) 38.7 % 36.0-46.0 N MEAN CELL VOLUME (test code = MCV) 86.0 fL 80-98 N MEAN CELL HGB (test code = MCH) 25.8 picogram 27.0-33.0 L MEAN CELL HGB CONCETRATION (test code = MCHC) 30.0 gram/dL 33.0-36. 0 L RED CELL DISTRIBUTION WIDTH (test code = RDW) 18.1 % 11.6-16. 2 H PLATELET COUNT (test code = PLT) 171 K/mm3 150-450 N MEAN PLATELET VOLUME (test code = MPV) 10.7 fL 6.7-11.0 N [id number] 05:05:00* Test Item Value Reference Range Interpretation Comments MAGNESIUM (test code = MAG) 2.3 mg/dL 1.8-2.4 N THYROID PROFILE [id number] 05:05:00* Test Item Value Reference Range Interpretation Comments T3 UPTAKE (test code = T3UP) % 30.0-40.0 T4 (THYROXINE) (test code = T4) ug/dL 4.5-13.9 T7 (FREE THYROXINE INDEX) (test code = T7) FTI 1.3-5.1 THYROID STIMULATING HORMONE (test code = TSH) uIU/mL 0.36-3.7 4 BASIC METABOLIC [id number] 05:01:00* Test Item Value Reference Range Interpretation Comments SODIUM (test code = NA) 134 mmol/L 136-145 L POTASSIUM (test code = K) 4.4 mmol/L 3.5-5.1 N CHLORIDE (test code = CL) 96.0 mmol/L 98-107 L CARBON DIOXIDE (test code = CO2) mmol/L 21-32 ANION GAP (test code = GAP) 10-20 GLUCOSE (test code = GLU) mg/dL 74-106 BLOOD UREA NITROGEN (test code = BUN) mg/dL 7-18 GLOMERULAR FILTRATION RATE (test code = GFR) mL/min >=60 CREATININE (test code = CREAT) mg/dL 0.55-1.02 BUN/CREATININE RATIO (test code = BUN/CREA) 10-20 CALCIUM (test code = CA) mg/dL 8.5-10.1 [id number] 05:01:00* Test Item Value Reference Range Interpretation Comments TROPONIN-I (test code = TROPI) ng/mL 0-0.045 TROPONIN I [id number] 04:50:00* Test Item Value Reference Range Interpretation Comments TROPONIN I RAPID (test code = TROPIRAP) 0.03 ng/mL <0.08 Please Note New Reference Range 0.00-0.079 ng/mL - Negative>or= 0.08 ng/mL - Positive The use of serial sampling and testing protocol is arecommended practice.An elevated troponin level alone is often not sufficient fordiagnosis of myocardial infarction. Troponin results obtained by different assays may vary.Evaluation of the extent of myocardial damage based onincrease of troponin would be valid only if similarmethodology is used. - XR CHEST 1 [id number] 04:26:00 FAX: Mich Smith MD [place]: St: REG FAX: Y Jean Carlos Russell MD [phone] Name: ERIN SCHILLING [facility] : 1950 Age/S: 68/F [address] [facility] Unit #: [id number] Loc: [place] [address] Phys: Mich Smith MD Acct: [id number] Dis Date: Status: REG ER PHONE #: [phone] Exam Date: 04/26/2019 0423 FAX #: [phone] Reason: CHEST PAIN EXAMS: CPT CODE: [id number] XR CHEST 1 V 72672 Dictation location: [facility]. CHEST, FRONTAL VIEW HISTORY: CHEST PAIN FINDINGS: Since 03/05/19, there is continued cardiomegaly with mild pulmonary edema. The aorta is partially calcified. No focal consolidation. Degenerative changes affect the thoracic spine. IMPRESSION: Cardiomegaly with mild pulmonary edema. at 0426 Reported and signed by: Irina Hernandez M.D. CC: Mich Smith MD; Jean Carlos Russell MD Technologist: Keyla Carter Trnscrd Date/Time/By: 04/26/2019 (0426) : By: [email or web address] Orig Print D/T: S: 04/26/2019 (0429) PAGE 1 Signed Report PROTHROMBIN [id number] 18:16:00* Test Item Value Reference Range Interpretation Comments PROTHROMBIN TIME PATIENT (test code = PTP) 13.0 seconds 9.0-14.0 N INTERNATIONAL NORMAL RATIO (test code = INR) 1.1 0.8-1.2 N The therapeutic range for oral anticoagulant therapy formost indications is an international normalized ratio (INR)of between 2.0 and 3.0. The recommended therapeutic INRrange for various clinical situations is listed below: Clinical Situation INR range Pulmonary e mbolism treatment (2.0-3.0)Venous thrombosis treatmentVenous thrombosis prophylaxis (high risk surgery)Prevention of systemic embolism from: Acute myocardial infarction Valvular heart disease Atrial fibrillation Mechanical prosthetic heart valves (2.5-3.5) - CT HEAD/BRAIN W/O [id number] 14:27:00 Name: ERIN SCHILLING [facility] : 1950 Age/S: 68 / F [address] [facility] Unit #: [id number] Loc: [place] [address] Phys: Blaise Campbell MD Acct: [id number] Dis Date: Status: REG ER PHONE #: [phone] Exam Date: 04/14/2019 3551 FAX #: [phone] Reason: vertigo EXAMS: CPT CODE: [id number] CT HEAD/BRAIN W/O CONT 14331 HISTORY: Vertigo. COMPARISON: Head CT from March 05, 2019 CT brain without contrast: Automated exposure control. Location: [facility]. No acute intracranial bleeds or extra-axial collections are noted. No acute territorial vascular infarction is noted. The sulci, gyri, vent ricles and subarachnoid spaces and the basilar cisterns are normal for bibi tay's age. No herniation or hydrocephalus or midline shift is noted. Mild periventricular ischemic gliosis is noted. Age-appropriate atrophy is noted as well. Portions of the visualized paranasal sin uses are normal. No obvious bony calvarial defect is noted. IMPRESSION: No acute intracranial bleeds or extra-ax ial collections. No acute territorial vascular infarction. No herniation or hydrocephalus or midline shift. Chronic white matter ischemic disease and atrophy . at 1427 Reported and signed by: Jamie Lovell M.D. CC: Blaise Campbell MD; Jean Carlos Russell MD Technologist:Jorge Barragan RT(R),(MR ),(CT) CTDI: DLP: Trnscb Date/Time: 04/14/2019 (0561) t.SDR.TH4 Orig Print D/T: S: 04/14/2019 (7421) PAGE 1 Signed Report [id number] 13:58:00* Test Item Value Reference Range Interpretation Comments ACETAMINOPHEN (test code = ACET) < 10 mcg/mL 10-30 L A RANGE OF 10-30 mcg/mL IS A THERAPEUTIC RANGE. TOXIC CONCENTRATIONS: >150 mcg/mL AT 4 HOURS AFTER INGESTION >= 50 mcg/mL AT 12 HOURS AFTER INGESTION [id number] 13:58:00* Test Item Value Reference Range Interpretation Comments SALICYLATE (test code = LETY) < 1.7 mg/dL 2.8-20.0 L BASIC METABOLIC [id number] 13:57:00* Test Item Value Reference Range Interpretation Comments SODIUM (test code = NA) 138 mmol/L 136-145 N POTASSIUM (test code = K) 3.5 mmol/L 3.5-5.1 N CHLORIDE (test code = CL) 98.0 mmol/L 98-107 N CARBON DIOXIDE (test code = CO2) 33.0 mmol/L 21-32 H ANION GAP (test code = GAP) 10.5 10-20 N GLUCOSE (test code = GLU) 154 mg/dL 74-106 H BLOOD UREA NITROGEN (test code = BUN) 15 mg/dL 7-18 N GLOMERULAR FILTRATION RATE (test code = GFR) 19 mL/min >=60 Estimated GFR by using Modified MDRD formula.Chronic kidney disease is defined as either kidney damageor GFR <60 mL/min/1.73 m2 for >3 months. CREATININE (test code = CREAT) 2.50 mg/dL 0.55-1.02 H Note change in reference range due to change in reagent. BUN/CREATININE RATIO (test code = BUN/CREA) 6.0 10-20 L CALCIUM (test code = CA) 9.4 mg/dL 8.5-10.1 N HEPATIC FUNCTION [id number] 13:57:00* Test Item Value Reference Range Interpretation Comments TOTAL PROTEIN (test code = PROT) 8.0 gram/dL 6.4-8.2 N ALBUMIN (test code = ALB) 3.6 g/dL 3.4-5.0 N GLOBULIN (test code = GLOB) 4.4 gram/dL 2.7-4.2 H ALBUMIN/GLOBULIN RATIO (test code = A/G) 0.8 0.75-1.50 N BILIRUBIN TOTAL (test code = BILT) 0.80 mg/dL 0.0-1.0 N BILIRUBIN DIRECT (test code = BILD) 0.21 mg/dL 0.0-0.20 H SGOT/AST (test code = AST) 17 IUnit/L 15-37 N SGPT/ALT (test code = ALT) 15 IUnit/L 12-78 N ALKALINE PHOSPHATASE TOTAL (test code = ALKP) 138 IUnit/L 45-117 H Note change in reference range due to change in reagent. [id number] 13:57:00* Test Item Value Reference Range Interpretation Comments MAGNESIUM (test code = MAG) 2.3 mg/dL 1.8-2.4 N [id number] 13:57:00* Test Item Value Reference Range Interpretation Comments ALCOHOL (test code = ALC) 7 mg/dL 0.0-3.0 H -- INTERPRETIVE DATA NOTE: POSITIVE SCREENING RESULTS SHOULD BE CONSIDERED PRESUMPTIVE.WHEN COLLECTED FOR MEDICAL PURPOSES ONLY. SPECIMEN WILL NOTBE COLLECTED BY CHAIN OF CUSTODY.IF A CONFIRMATION OF POSITIVE RESULTS IS DESIRED, ACONFIRMATION TEST MUST BE REQUESTED BY THE PHYSICIAN AT ANADDITIONAL CHARGE TO THE PATIENT. PROTHROMBIN [id number] 13:31:00* Test Item Value Reference Range Interpretation Comments PROTHROMBIN TIME PATIENT (test code = PTP) 14.3 seconds 9.0-14.0 H INTERNATIONAL NORMAL RATIO (test code = INR) 1.2 0.8-1.2 N The therapeutic range for oral anticoagulant therapy formost indications is an international normalized ratio (INR)of between 2.0 and 3.0. The recommended therapeutic INRrange for various clinical situations is listed below: Clinical Situation INR range Pulmonary e mbolism treatment (2.0-3.0)Venous thrombosis treatmentVenous thrombosis prophylaxis (high risk surgery)Prevention of systemic embolism from: Acute myocardial infarction Valvular heart disease Atrial fibrillation Mechanical prosthetic heart valves (2.5-3.5) IS PATIENT ON ANTICOAGULANTS? NTHROMBOPLASTIN TIME [id number] 13:31:00* Test Item Value Reference Range Interpretation Comments THROMBOPLASTIN TIME PARTIAL (test code = PTT) 40.5 seconds 25.0-36. 5 H IS PATIENT ON ANTICOAGULANTS? NCBC W/O [id number] 13:29:00* Test Item Value Reference Range Interpretation Comments WHITE BLOOD CELL (test code = WBC) 3.9 K/mm3 4.5-12.5 L RED BLOOD CELL (test code = RBC) 4.73 mill/mm3 3.7-5.2 N HEMOGLOBIN (test code = HGB) 12.0 gram/dL 11.5-15.5 N HEMATOCRIT (test code = HCT) 41.1 % 36.0-46.0 N MEAN CELL VOLUME (test code = MCV) 86.9 fL 80-98 N MEAN CELL HGB (test code = MCH) 25.4 picogram 27.0-33.0 L MEAN CELL HGB CONCETRATION (test code = MCHC) 29.2 gram/dL 33.0-36. 0 L RED CELL DISTRIBUTION WIDTH (test code = RDW) 18.8 % 11.6-16. 2 H PLATELET COUNT (test code = PLT) 90 K/mm3 150-450 L MEAN PLATELET VOLUME (test code = MPV) 9.4 fL 6.7-11.0 N Bedside [id number] 07:15:00* Test Item Value Reference Range Interpretation Comments Bedside Glucose (test code = 10396-5) 132 70-120 H Meter ID: [id number] [facility] 2019-04-10 14:51:00* Test Item Value Reference Range Interpretation Comments Creatine Kinase MB (test code = 81329-6) 2.20 0-5.0 [facility]hamTroponin [id number] 14:51:00* Test Item Value Reference Range Interpretation Comments Troponin I (test code = EJA8310) 0.010 0-0.300 [facility]hamCreatine [id number] 14:32:00* Test Item Value Reference Range Interpretation Comments Creatine Kinase (test code = 2157-6) 29 29-168 [facility] BrenhamThyroid Stimulating Hormone (TSH) 2019-04-10 14:08:00* Test Item Value Reference Range Interpretation Comments Thyroid Stimulating Hormone (TSH) (test code = 48497-5) 2.942 0.350-4.940 [facility] Campusodium [id number] 05:59:00* Test Item Value Reference Range Interpretation Comments Sodium Level (test code = 2951-2) 134 136-145 L [facility]hamPotassium [id number] 05:59:00* Test Item Value Reference Range Interpretation Comments Potassium Level (test code = 2823-3) 5.3 3.5-5.1 H [facility]hamChloride [id number] 05:59:00* Test Item Value Reference Range Interpretation Comments Chloride Level (test code = 2075-0) 91 98-107 L [facility] BrenhamCarbon Dioxide Gtaae7120-42-86 05:59:00* Test Item Value Reference Range Interpretation Comments Carbon Dioxide Level (test code = 2028-9) 31 22-29 H [facility] BrenhamAnion [id number] 05:59:00* Test Item Value Reference Range Interpretation Comments Anion Gap (test code = 50867-4) 17.3 8-16 H [facility] BrenhamBlood Urea Ycmluqds7666-08-97 05:59:00* Test Item Value Reference Range Interpretation Comments Blood Urea Nitrogen (test code = 3094-0) 34 7-26 H [facility] BrenhamCreatinine2020-01-13 05:59:00* Test Item Value Reference Range Interpretation Comments Creatinine (test code = 2160-0) 4.44 0.57-1.11 H [facility] BrenhamBUN/Creatinine [id number] 05:59:00* Test Item Value Reference Range Interpretation Comments BUN/Creatinine Ratio (test code = 3097-3) 8 6-25 [facility] BrenhamEstimat Glomerular Filtration Rate 2019-04-10 05:59:00* Test Item Value Reference Range Interpretation Comments Estimat Glomerular Filtration Rate (test code = 218857849) 10 >60 L Ranges were taken from the National Kidney Disease Education Program and the [facility] Foundation literature.Reference ranges:60 or greater: Lrbwiu38-37 ( for 3 consecutive months): Chronic kidney disease 15 or less: Kidney failureBaylor Scott & White Medical Center – BrenhamGlucose Nilrk4994-94-82 05:59:00* Test Item Value Reference Range Interpretation Comments Glucose Level (test code = TWW4215) 222 74-118 H [facility] BrenhamCalcium Adhis9551-70-80 05:59:00* Test Item Value Reference Range Interpretation Comments Calcium Level (test code = 47789-0) 8.6 8.4-10.2 [facility] BrenhamTotal Vnlizfjrh7842-78-20 05:59:00* Test Item Value Reference Range Interpretation Comments Total Bilirubin (test code = 1975-2) 0.6 0.2-1.2 [facility] BrenhamAspartate Amino Transf (AST/SGOT) 2019-04-10 05:59:00* Test Item Value Reference Range Interpretation Comments Aspartate Amino Transf (AST/SGOT) (test code = Aspartate Amino Transf (AST/SGOT)) 15 5-34 [facility] BrenhamAlanine Aminotransferase (ALT/SGPT) 2019-04-10 05:59:00* Test Item Value Reference Range Interpretation Comments Alanine Aminotransferase (ALT/SGPT) (test code = 1742-6) 16 0-55 [facility] BrenhamTotal Wrascoi5479-35-19 05:59:00* Test Item Value Reference Range Interpretation Comments Total Protein (test code = 2885-2) 7.4 6.5-8.1 [facility] BrenhamAlbumin2020-01-13 05:59:00* Test Item Value Reference Range Interpretation Comments Albumin (test code = 1751-7) 3.3 3.5-5.0 L [facility] BrenhamGlobulin2020-01-13 05:59:00* Test Item Value Reference Range Interpretation Comments Globulin (test code = 44388-1) 4.1 2.3-3.5 H [facility] BrenhamAlbumin/Globulin Ihgoa0420-24-60 05:59:00 * Test Item Value Reference Range Interpretation Comments Albumin/Globulin Ratio (test code = 1759-0) 0.8 0.8-2.0 [facility] BrenhamAlkaline Dkltselmuid9230-77-86 05:59:00* Test Item Value Reference Range Interpretation Comments Alkaline Phosphatase (test code = 6768-6) 147 40-150 [facility] BrenhamTriglycerides Cchzc2829-65-54 05:59:00* Test Item Value Reference Range Interpretation Comments Triglycerides Level (test code = 2571-8) 78 0-149 [facility] BrenhamCholesterol Daotm6011-04-04 05:59:00* Test Item Value Reference Range Interpretation Comments Cholesterol Level (test code = 2093-3) 157 0-199 Less than 200 mg/dL Low Rqxy632 - 239 mg/dL Borderline Jsmz166 m g/dl and greater High Risk [facility] BrenhamLDL Scxnncayqin8613-19-77 05:59:00* Test Item Value Reference Range Interpretation Comments LDL Cholesterol (test code = 2089-1) 69 60-130 [facility] BrenhamHDL Jmkpmwmsybh8389-75-98 05:59:00* Test Item Value Reference Range Interpretation Comments HDL Cholesterol (test code = 2085-9) 72 40-60 H [facility] BrenhamCholesterol/HDL Yxwlo9817-43-21 05:59:00 * Test Item Value Reference Range Interpretation Comments Cholesterol/HDL Ratio (test code = 9830-1) 2.2 3.0-3.6 L [facility] BrenhamWhite Blood Faflr0301-01-74 05:51:00* Test Item Value Reference Range Interpretation Comments White Blood Count (test code = 6690-2) 5.37 4.8-10.8 [facility] BrenhamRed Blood Rzlzj9457-72-61 05:51:00* Test Item Value Reference Range Interpretation Comments Red Blood Count (test code = 789-8) 4.35 3.6-5.1 [facility] BrenhamHemoglobin2020-01-13 05:51:00* Test Item Value Reference Range Interpretation Comments Hemoglobin (test code = 90111-5) 11.3 12.0-16.0 L [facility] BrenhamHematocrit2020-01-13 05:51:00* Test Item Value Reference Range Interpretation Comments Hematocrit (test code = 4544-3) 37.5 34.2-44.1 [facility] BrenhamMean Corpuscular Mfgads7678-86-25 05:51:00* Test Item Value Reference Range Interpretation Comments Mean Corpuscular Volume (test code = 787-2) 86.2 81-99 [facility] BrenhamMean Corpuscular Pjmtpgunim6264-11-08 05:51:00* Test Item Value Reference Range Interpretation Comments Mean Corpuscular Hemoglobin (test code = 785-6) 26.0 28-32 L [facility] BrenhamMean Corpuscular Hemoglobin Concent 2019-04-10 05:51:00* Test Item Value Reference Range Interpretation Comments Mean Corpuscular Hemoglobin Concent (test code = 786-4) 30.1 31-35 L [facility] BrenhamRed Cell Distribution Twxiy4018-19-73 05:51:00* Test Item Value Reference Range Interpretation Comments Red Cell Distribution Width (test code = 36989-4) 19.9 11.7 -14.4 H [facility] BrenhamPlatelet Exdhp1359-14-54 05:51:00* Test Item Value Reference Range Interpretation Comments Platelet Count (test code = 777-3) 106 140-360 L [facility] BrenhamNeutrophils (%) (Auto)2019-04-10 05:51:00 * Test Item Value Reference Range Interpretation Comments Neutrophils (%) (Auto) (test code = 02475-3) 72.5 38.7-80.0 [facility] BrenhamLymphocytes (%) (Auto)2019-04-10 05:51:00 * Test Item Value Reference Range Interpretation Comments Lymphocytes (%) (Auto) (test code = 736-9) 15.8 18.0-39.1 L [facility] BrenhamMonocytes (%) (Auto)2019-04-10 05:51:00* Test Item Value Reference Range Interpretation Comments Monocytes (%) (Auto) (test code = 5905-5) 7.8 4.4-11.3 [facility] BrenhamEosinophils (%) (Auto)2019-04-10 05:51:00 * Test Item Value Reference Range Interpretation Comments Eosinophils (%) (Auto) (test code = 713-8) 2.8 0.0-6.0 [facility] BrenhamBasophils (%) (Auto)2019-04-10 05:51:00* Test Item Value Reference Range Interpretation Comments Basophils (%) (Auto) (test code = 706-2) 0.9 0.0-1.0 [facility] BrenhamIM GRANULOCYTES %2019-04-10 05:51:00* Test Item Value Reference Range Interpretation Comments IM GRANULOCYTES % (test code = IM GRANULOCYTES %) 0.2 0.0- 1.0 [facility] BrenhamNeutrophils # (Auto)2019-04-10 05:51:00* Test Item Value Reference Range Interpretation Comments Neutrophils # (Auto) (test code = 751-8) 3.9 2.1-6.9 [facility] BrenhamLymphocytes # (Auto)2019-04-10 05:51:00* Test Item Value Reference Range Interpretation Comments Lymphocytes # (Auto) (test code = 42978-8) 0.9 1.0-3.2 L [facility] BrenhamMonocytes # (Auto)2019-04-10 05:51:00* Test Item Value Reference Range Interpretation Comments Monocytes # (Auto) (test code = 742-7) 0.4 0.2-0.8 [facility] BrenhamEosinophils # (Auto)2019-04-10 05:51:00* Test Item Value Reference Range Interpretation Comments Eosinophils # (Auto) (test code = 711-2) 0.2 0.0-0.4 [facility] BrenhamBasophils # (Auto)2019-04-10 05:51:00* Test Item Value Reference Range Interpretation Comments Basophils # (Auto) (test code = 704-7) 0.1 0.0-0.1 [facility] BrenhamAbsolute Immature Granulocyte (auto 2019-04-10 05:51:00* Test Item Value Reference Range Interpretation Comments Absolute Immature Granulocyte (auto (mary ann t code = Absolute Immature Granulocyte (auto) 0.01 0-0.1 [facility] BrenhamHemoglobin A1c Sqylppq0376-43-16 05:43:00 * Test Item Value Reference Range Interpretation Comments Hemoglobin A1c Percent (test code = Hemoglobin A1c Percent) 7.6 4.0-7.0 H [facility] BrenhamProthrombin Phvh3122-53-87 05:00:00* Test Item Value Reference Range Interpretation Comments Prothrombin Time (test code = 5902-2) 15.7 11.9-14.5 H [facility] BrenhamProthromb Time International Ratio 2019-04-10 05:00:00* Test Item Value Reference Range Interpretation Comments Prothromb Time International Ratio (test code = 6301-6) 1.19 Oral Anticoagulant Therapy INR Values:1. Low Intensity Therapy 1.5 - 2.02 . Moderate Intensity Therapy 2.0 - 3.03. High Intensity Therapy(1) 2.5 - 3. 54. High Intensity Therapy(2) 3.0 - 4.05. Panic Value INR > 5.0 [facility] BrenhamActivated Partial Thromboplast Time 2019-04-09 12:51:00* Test Item Value Reference Range Interpretation Comments Activated Partial Thromboplast Time (test code = 61461-6) 35.4 23.8-35.5 [facility] BrenhamCHEST SINGLE (PORTABLE)2019-04-09 12:13:00 [facility] [address] [place] [address] Patient Name: ERIN SCHILLING MR #: [id number] : 1950 Age/Sex: 68/F Req #: [id number] Adm Physician: Ordered by: CED LARKIN HADOOP ANALYST Report #: [id number] Location: ER Room/Bed: Procedure: [id number] DX/ CHEST SINGLE (PORTABLE) Exam Date: 04/09/19 Exam Artie e: 1140 REPORT STATUS: Signed EX AMINATION: CHEST SINGLE (PORTABLE) COMPARISON: None INDICATION: B ilateral lung weakness, shortness of breath ERMD ORDER [id number] Y DISCUSSION: Frontal view of the chest obtained at 1140 hours. HEART AND MEDIASTINUM: The heart is enlarged. Pulmonary arteries are enlarged as well as the pulmonary veins LINES: None. LUNGS: No pneumonia or interstitial thickening. Mild bibasilar atelectasis. PLEURA: No pleural e ffusion or pneumothorax. BONES AND SOFT TISSUES: Mild degenerative changes of the spine. No focal osseous lesion. The soft tissues are normal. IM PRESSION: Cardiomegaly and prominent pulmonary arteries suggestive of artery hypertension. Mild pulmonary venous congestion. No CHF. Signed by: Dr. Ish MD on 04/09/2019 12:14 PM Dictated By: LOKESH ROONEY MD 13 Transcribed By: JUANIS on 04/09/194 COPY TO: CED LARKIN HADOOP ANALYST GLUBED 2019-03-31 12:17:00* Test Item Value Reference Range Interpretation Comments GLUBED (test code = GLUBED) 127 mg/dL 74-106 H Performed by certified call center operator at [facility] HBFTXG6776-03-25 10:08:00* Test Item Value Reference Range Interpretation Comments GLUBED (test code = GLUBED) 249 mg/dL 74-106 H Performed by certified call center operator at [facility] QEMBGP8292-86-59 10:06:00* Test Item Value Reference Range Interpretation Comments GLUBED (test code = GLUBED) 163 mg/dL 74-106 H Performed by certified call center operator at [facility] MVBHMF4165-20-67 10:06:00* Test Item Value Reference Range Interpretation Comments GLUBED (test code = GLUBED) 170 mg/dL 74-106 H Performed by certified call center operator at [facility] [id number] 16:17:00* Test Item Value Reference Range Interpretation Comments GLUBED (test code = GLUBED) 247 mg/dL 74-106 H Performed by certified call center operator at [facility] OWBMOA3807-59-04 11:42:00* Test Item Value Reference Range Interpretation Comments GLUBED (test code = GLUBED) 105 mg/dL 74-106 N Performed by certified call center operator at [facility] [id number] 07:02:00* Test Item Value Reference Range Interpretation Comments GLUBED (test code = GLUBED) 187 mg/dL 74-106 H [facility]Notified Nurse~ BASIC METABOLIC JJWAP7304-63-02 06:08:00* Test Item Value Reference Range Interpretation Comments SODIUM (test code = NA) 137 mmol/L 136-145 N POTASSIUM (test code = K) 4.9 mmol/L 3.5-5.1 N CHLORIDE (test code = CL) 101.0 mmol/L 98-107 N CARBON DIOXIDE (test code = CO2) 28.0 mmol/L 21-32 N ANION GAP (test code = GAP) 12.9 10-20 N GLUCOSE (test code = GLU) 192 mg/dL 74-106 H BLOOD UREA NITROGEN (test code = BUN) 20 mg/dL 7-18 H RESULT VERIFIED BY REPEAT ANALYSIS GLOMERULAR FILTRATION RATE (test code = GFR) 11 mL/min >=60 Estimated GFR by using Modified MDRD formula.Chronic kidney disease is defined as either kidney damageor GFR <60 mL/min/1.73 m2 for >3 months. CREATININE (test code = CREAT) 3.90 mg/dL 0.55-1.02 H Note change in reference range due to change in reagent. BUN/CREATININE RATIO (test code = BUN/CREA) 5.1 10-20 L CALCIUM (test code = CA) 8.4 mg/dL 8.5-10.1 L BASIC METABOLIC [id number] 05:36:00* Test Item Value Reference Range Interpretation Comments SODIUM (test code = NA) 137 mmol/L 136-145 N POTASSIUM (test code = K) 4.9 mmol/L 3.5-5.1 N CHLORIDE (test code = CL) 101.0 mmol/L 98-107 N CARBON DIOXIDE (test code = CO2) mmol/L 21-32 ANION GAP (test code = GAP) 10-20 GLUCOSE (test code = GLU) mg/dL 74-106 BLOOD UREA NITROGEN (test code = BUN) mg/dL 7-18 GLOMERULAR FILTRATION RATE (test code = GFR) mL/min >=60 CREATININE (test code = CREAT) mg/dL 0.55-1.02 BUN/CREATININE RATIO (test code = BUN/CREA) 10-20 CALCIUM (test code = CA) mg/dL 8.5-10.1 PROTHROMBIN [id number] 05:28:00* Test Item Value Reference Range Interpretation Comments PROTHROMBIN TIME PATIENT (test code = PTP) 13.0 seconds 9.0-14.0 N INTERNATIONAL NORMAL RATIO (test code = INR) 1.1 0.8-1.2 N The therapeutic range for oral anticoagulant therapy formost indications is an international normalized ratio (INR)of between 2.0 and 3.0. The recommended therapeutic INRrange for various clinical situations is listed below: Clinical Situation INR range Pulmonary e mbolism treatment (2.0-3.0)Venous thrombosis treatmentVenous thrombosis prophylaxis (high risk surgery)Prevention of systemic embolism from: Acute myocardial infarction Valvular heart disease Atrial fibrillation Mechanical prosthetic heart valves (2.5-3.5) IS PATIENT ON ANTICOAGULANTS? YLIST ANTICOAGULANTS COUMADINCBC W/O DIFF 2019-03-09 05:15:00* Test Item Value Reference Range Interpretation Comments WHITE BLOOD CELL (test code = WBC) 4.8 K/mm3 4.5-12.5 N RED BLOOD CELL (test code = RBC) 4.76 mill/mm3 3.7-5.2 N HEMOGLOBIN (test code = HGB) 11.6 gram/dL 11.5-15.5 N HEMATOCRIT (test code = HCT) 41.3 % 36.0-46.0 N MEAN CELL VOLUME (test code = MCV) 86.8 fL 80-98 N MEAN CELL HGB (test code = MCH) 24.4 picogram 27.0-33.0 L MEAN CELL HGB CONCETRATION (test code = MCHC) 28.1 gram/dL 33.0-36. 0 L RED CELL DISTRIBUTION WIDTH (test code = RDW) 20.3 % 11.6-16. 2 H PLATELET COUNT (test code = PLT) 176 K/mm3 150-450 N MEAN PLATELET VOLUME (test code = MPV) 9.6 fL 6.7-11.0 N CBC W/O [id number] 05:14:00* Test Item Value Reference Range Interpretation Comments WHITE BLOOD CELL (test code = WBC) K/mm3 4.5-12.5 RED BLOOD CELL (test code = RBC) mill/mm3 3.7-5.2 HEMOGLOBIN (test code = HGB) 11.6 gram/dL 11.5-15.5 N HEMATOCRIT (test code = HCT) 41.3 % 36.0-46.0 N MEAN CELL VOLUME (test code = MCV) fL 80-98 MEAN CELL HGB (test code = MCH) picogram 27.0-33.0 MEAN CELL HGB CONCETRATION (test code = MCHC) gram/dL 33.0-36. 0 RED CELL DISTRIBUTION WIDTH (test code = RDW) % 11.6-16. 2 PLATELET COUNT (test code = PLT) K/mm3 150-450 MEAN PLATELET VOLUME (test code = MPV) fL 6.7-11.0 [id number] 22:06:00* Test Item Value Reference Range Interpretation Comments GLUBED (test code = GLUBED) 240 mg/dL 74-106 H [facility] [id number] 17:03:00* Test Item Value Reference Range Interpretation Comments GLUBED (test code = GLUBED) 222 mg/dL 74-106 H Performed by certified call center operator at [facility] BASIC METABOLIC [id number] 08:44:00* Test Item Value Reference Range Interpretation Comments SODIUM (test code = NA) 133 mmol/L 136-145 L POTASSIUM (test code = K) 5.2 mmol/L 3.5-5.1 H CHLORIDE (test code = CL) 99.0 mmol/L 98-107 N CARBON DIOXIDE (test code = CO2) 24.0 mmol/L 21-32 N ANION GAP (test code = GAP) 15.2 10-20 N GLUCOSE (test code = GLU) 220 mg/dL 74-106 H BLOOD UREA NITROGEN (test code = BUN) 31 mg/dL 7-18 H GLOMERULAR FILTRATION RATE (test code = GFR) 7 mL/min >=60 Estimated GFR by using Modified MDRD formula.Chronic kidney disease is defined as either kidney damageor GFR <60 mL/min/1.73 m2 for >3 months. CREATININE (test code = CREAT) 5.70 mg/dL 0.55-1.02 H Note change in reference range due to change in reagent. BUN/CREATININE RATIO (test code = BUN/CREA) 5.4 10-20 L CALCIUM (test code = CA) 8.0 mg/dL 8.5-10.1 L BASIC METABOLIC [id number] 08:26:00* Test Item Value Reference Range Interpretation Comments SODIUM (test code = NA) 133 mmol/L 136-145 L POTASSIUM (test code = K) 5.2 mmol/L 3.5-5.1 H CHLORIDE (test code = CL) 99.0 mmol/L 98-107 N CARBON DIOXIDE (test code = CO2) mmol/L 21-32 ANION GAP (test code = GAP) 10-20 GLUCOSE (test code = GLU) mg/dL 74-106 BLOOD UREA NITROGEN (test code = BUN) mg/dL 7-18 GLOMERULAR FILTRATION RATE (test code = GFR) mL/min >=60 CREATININE (test code = CREAT) mg/dL 0.55-1.02 BUN/CREATININE RATIO (test code = BUN/CREA) 10-20 CALCIUM (test code = CA) mg/dL 8.5-10.1 PROTHROMBIN [id number] 08:11:00* Test Item Value Reference Range Interpretation Comments PROTHROMBIN TIME PATIENT (test code = PTP) 12.7 seconds 9.0-14.0 N INTERNATIONAL NORMAL RATIO (test code = INR) 1.1 0.8-1.2 N The therapeutic range for oral anticoagulant therapy formost indications is an international normalized ratio (INR)of between 2.0 and 3.0. The recommended therapeutic INRrange for various clinical situations is listed below: Clinical Situation INR range Pulmonary e mbolism treatment (2.0-3.0)Venous thrombosis treatmentVenous thrombosis prophylaxis (high risk surgery)Prevention of systemic embolism from: Acute myocardial infarction Valvular heart disease Atrial fibrillation Mechanical prosthetic heart valves (2.5-3.5) IS PATIENT ON ANTICOAGULANTS? YLIST ANTICOAGULANTS [id number] 06:10:00* Test Item Value Reference Range Interpretation Comments GLUBED (test code = GLUBED) 239 mg/dL 74-106 H Performed by certified call center operator at [facility] [id number] 20:13:00* Test Item Value Reference Range Interpretation Comments GLUBED (test code = GLUBED) 220 mg/dL 74-106 H Performed by certified call center operator at [facility] [id number] 16:50:00* Test Item Value Reference Range Interpretation Comments GLUBED (test code = GLUBED) 266 mg/dL 74-106 H Performed by certified call center operator at [facility] [id number] 16:50:00* Test Item Value Reference Range Interpretation Comments GLUBED (test code = GLUBED) 261 mg/dL 74-106 H Performed by certified call center operator at [facility] BASIC METABOLIC [id number] 12:24:00* Test Item Value Reference Range Interpretation Comments SODIUM (test code = NA) 137 mmol/L 136-145 N POTASSIUM (test code = K) 5.1 mmol/L 3.5-5.1 N CHLORIDE (test code = CL) 100.0 mmol/L 98-107 N CARBON DIOXIDE (test code = CO2) 30.0 mmol/L 21-32 N ANION GAP (test code = GAP) 12.1 10-20 N GLUCOSE (test code = GLU) 202 mg/dL 74-106 H BLOOD UREA NITROGEN (test code = BUN) 16 mg/dL 7-18 N GLOMERULAR FILTRATION RATE (test code = GFR) 12 mL/min >=60 Estimated GFR by using Modified MDRD formula.Chronic kidney disease is defined as either kidney damageor GFR <60 mL/min/1.73 m2 for >3 months. CREATININE (test code = CREAT) 3.80 mg/dL 0.55-1.02 H Note change in reference range due to change in reagent. BUN/CREATININE RATIO (test code = BUN/CREA) 4.2 10-20 L CALCIUM (test code = CA) 8.2 mg/dL 8.5-10.1 L BASIC METABOLIC [id number] 12:16:00* Test Item Value Reference Range Interpretation Comments SODIUM (test code = NA) 137 mmol/L 136-145 N POTASSIUM (test code = K) 5.1 mmol/L 3.5-5.1 N CHLORIDE (test code = CL) 100.0 mmol/L 98-107 N CARBON DIOXIDE (test code = CO2) mmol/L 21-32 ANION GAP (test code = GAP) 10-20 GLUCOSE (test code = GLU) mg/dL 74-106 BLOOD UREA NITROGEN (test code = BUN) mg/dL 7-18 GLOMERULAR FILTRATION RATE (test code = GFR) mL/min >=60 CREATININE (test code = CREAT) mg/dL 0.55-1.02 BUN/CREATININE RATIO (test code = BUN/CREA) 10-20 CALCIUM (test code = CA) mg/dL 8.5-10.1 AB HEPATITIS B [id number] 06:09:00* Test Item Value Reference Range Interpretation Comments AB HEPATITIS B SURFACE (test code = HBSAB) Non Reactive () Non Reactive: Inconsistent with immunity, less than 10 mIU/mL Reactive: Consistent with immunity, greater than 9.9 mIU/mLPerformed At: Lab[address] [id number] Mack MD Ph:[phone] HEPATITIS B CORE ANTIBODY,[id number] 06:09:00* Test Item Value Reference Range Interpretation Comments HEPATITIS B CORE ANTIBODY,TOT (test code = HBCAB) Negative Nega tive Performed At: [facility] [id number] Mack MD Ph:[phone] [id number] 06:05:00* Test Item Value Reference Range Interpretation Comments GLUBED (test code = GLUBED) 181 mg/dL 74-106 H Performed by certified call center operator at [facility] PROTHROMBIN [id number] 05:18:00* Test Item Value Reference Range Interpretation Comments PROTHROMBIN TIME PATIENT (test code = PTP) 14.1 seconds 9.0-14.0 H INTERNATIONAL NORMAL RATIO (test code = INR) 1.2 0.8-1.2 N The therapeutic range for oral anticoagulant therapy formost indications is an international normalized ratio (INR)of between 2.0 and 3.0. The recommended therapeutic INRrange for various clinical situations is listed below: Clinical Situation INR range Pulmonary e mbolism treatment (2.0-3.0)Venous thrombosis treatmentVenous thrombosis prophylaxis (high risk surgery)Prevention of systemic embolism from: Acute myocardial infarction Valvular heart disease Atrial fibrillation Mechanical prosthetic heart valves (2.5-3.5) IS PATIENT ON ANTICOAGULANTS? YLIST ANTICOAGULANTS COUMADINPROTHROMBIN TIME 2019-03-06 21:16:00* Test Item Value Reference Range Interpretation Comments PROTHROMBIN TIME PATIENT (test code = PTP) 14.1 seconds 9.0-14.0 H INTERNATIONAL NORMAL RATIO (test code = INR) 1.2 0.8-1.2 N The therapeutic range for oral anticoagulant therapy formost indications is an international normalized ratio (INR)of between 2.0 and 3.0. The recommended therapeutic INRrange for various clinical situations is listed below: Clinical Situation INR range Pulmonary e mbolism treatment (2.0-3.0)Venous thrombosis treatmentVenous thrombosis prophylaxis (high risk surgery)Prevention of systemic embolism from: Acute myocardial infarction Valvular heart disease Atrial fibrillation Mechanical prosthetic heart valves (2.5-3.5) IS PATIENT ON ANTICOAGULANTS? YLIST ANTICOAGULANTS COUMADINTHROMBOPLASTIN TIME [id number] 21:16:00* Test Item Value Reference Range Interpretation Comments THROMBOPLASTIN TIME PARTIAL (test code = PTT) 41.0 seconds 25.0-36. 5 H IS PATIENT ON ANTICOAGULANTS? YLIST ANTICOAGULANTS [id number] 20:37:00* Test Item Value Reference Range Interpretation Comments GLUBED (test code = GLUBED) 227 mg/dL 74-106 H Performed by certified call center operator at [facility] BASIC METABOLIC [id number] 07:55:00* Test Item Value Reference Range Interpretation Comments SODIUM (test code = NA) 134 mmol/L 136-145 L RESU LT VERIFIED BY REPEAT ANALYSIS POTASSIUM (test code = K) 5.6 mmol/L 3.5-5.1 H CHLORIDE (test code = CL) 98.0 mmol/L 98-107 N CARBON DIOXIDE (test code = CO2) 29.0 mmol/L 21-32 N ANION GAP (test code = GAP) 12.6 10-20 N GLUCOSE (test code = GLU) 288 mg/dL 74-106 H BLOOD UREA NITROGEN (test code = BUN) 19 mg/dL 7-18 H RESULT VERIFIED BY REPEAT ANALYSIS GLOMERULAR FILTRATION RATE (test code = GFR) 10 mL/min >=60 Estimated GFR by using Modified MDRD formula.Chronic kidney disease is defined as either kidney damageor GFR <60 mL/min/1.73 m2 for >3 months. CREATININE (test code = CREAT) 4.50 mg/dL 0.55-1.02 H Note change in reference range due to change in reagent. BUN/CREATININE RATIO (test code = BUN/CREA) 4.2 10-20 L CALCIUM (test code = CA) 8.2 mg/dL 8.5-10.1 L CBC W/AUTO [id number] 07:26:00* Test Item Value Reference Range Interpretation Comments WHITE BLOOD CELL (test code = WBC) 6.5 K/mm3 4.5-12.5 N RED BLOOD CELL (test code = RBC) 4.39 mill/mm3 3.7-5.2 N HEMOGLOBIN (test code = HGB) 10.9 gram/dL 11.5-15.5 L HEMATOCRIT (test code = HCT) 37.6 % 36.0-46.0 N MEAN CELL VOLUME (test code = MCV) 85.6 fL 80-98 N MEAN CELL HGB (test code = MCH) 24.8 picogram 27.0-33.0 L MEAN CELL HGB CONCETRATION (test code = MCHC) 29.0 gram/dL 33.0-36. 0 L RED CELL DISTRIBUTION WIDTH (test code = RDW) 20.5 % 11.6-16. 2 H RED CELL DISTRIBUTION WIDTH SD (test code = RDW-SD) 62.2 fL 37 .0-51.0 H PLATELET COUNT (test code = PLT) 150 K/mm3 150-450 N MEAN PLATELET VOLUME (test code = MPV) 9.3 fL 6.7-11.0 N NEUTROPHIL % (test code = NT%) 81.1 % 39.0-69.0 H IMMATURE GRANULOCYTE % (test code = IG%) 0.2 % 0.0-5.0 N LYMPHOCYTE % (test code = LY%) 9.7 % 25.0-55.0 L MONOCYTE % (test code = MO%) 4.9 % 0.0-10.0 N EOSINOPHIL % (test code = EO%) 3.5 % 0.0-5.0 N BASOPHIL % (test code = BA%) 0.6 % 0.0-1.0 N NUCLEATED RBC % (test code = NRBC%) 0.0 % 0-0 N NEUTROPHIL # (test code = NT#) 5.25 K/mm3 1.8-7.7 N IMMATURE GRANULOCYTE # (test code = IG#) 0.01 x10 3/uL 0-0.03 N LYMPHOCYTE # (test code = LY#) 0.63 K/mm3 1.0-5.0 L MONOCYTE # (test code = MO#) 0.32 K/mm3 0-0.8 N EOSINOPHIL # (test code = EO#) 0.23 K/mm3 0.0-0.5 N BASOPHIL # (test code = BA#) 0.04 K/mm3 0.0-0.2 N NUCLEATED RBC # (test code = NRBC#) 0.00 K/mm3 0.0-0.1 N MANUAL DIFF REQUIRED (test code = MDIFF) NO CBC W/AUTO [id number] 07:25:00* Test Item Value Reference Range Interpretation Comments WHITE BLOOD CELL (test code = WBC) K/mm3 4.5-12.5 RED BLOOD CELL (test code = RBC) mill/mm3 3.7-5.2 HEMOGLOBIN (test code = HGB) gram/dL 11.5-15.5 HEMATOCRIT (test code = HCT) 37.6 % 36.0-46.0 N MEAN CELL VOLUME (test code = MCV) fL 80-98 MEAN CELL HGB (test code = MCH) picogram 27.0-33.0 MEAN CELL HGB CONCETRATION (test code = MCHC) gram/dL 33.0-36. 0 RED CELL DISTRIBUTION WIDTH (test code = RDW) % 11.6-16. 2 RED CELL DISTRIBUTION WIDTH SD (test code = RDW-SD) fL 37 .0-51.0 PLATELET COUNT (test code = PLT) K/mm3 150-450 MEAN PLATELET VOLUME (test code = MPV) fL 6.7-11.0 NEUTROPHIL % (test code = NT%) % 39.0-69.0 IMMATURE GRANULOCYTE % (test code = IG%) % 0.0-5.0 LYMPHOCYTE % (test code = LY%) % 25.0-55.0 MONOCYTE % (test code = MO%) % 0.0-10.0 EOSINOPHIL % (test code = EO%) % 0.0-5.0 BASOPHIL % (test code = BA%) % 0.0-1.0 NEUTROPHIL # (test code = NT#) K/mm3 1.8-7.7 LYMPHOCYTE # (test code = LY#) K/mm3 1.0-5.0 MONOCYTE # (test code = MO#) K/mm3 0-0.8 EOSINOPHIL # (test code = EO#) K/mm3 0.0-0.5 BASOPHIL # (test code = BA#) K/mm3 0.0-0.2 [id number] 01:40:00* Test Item Value Reference Range Interpretation Comments TROPONIN-I (test code = TROPI) <0.015 ng/mL 0-0.045 N COMMENTS TO ANGLE SHEAR OPERATOR: COLLECT 3 HOURS AFTER PREVIOUS [id number] 01:23:00* Test Item Value Reference Range Interpretation Comments TROPONIN-I (test code = TROPI) <0.015 ng/mL 0-0.045 N COMMENTS TO ANGLE SHEAR OPERATOR: COLLECT 3 HOURS AFTER PREVIOUS [id number] 23:36:00* Test Item Value Reference Range Interpretation Comments GLUBED (test code = GLUBED) 231 mg/dL 74-106 H Performed by certified call center operator at [facility] HEPAT B [id number] 21:37:00* Test Item Value Reference Range Interpretation Comments AG HEPAT B SURF (test code = HBSAG) Nonreactive Index Nonreactive [id number] 21:20:00* Test Item Value Reference Range Interpretation Comments POTASSIUM (test code = K) 7.1 mmol/L 3.5-5.1 Re sults called to [id number] by [facility].AA 03/05/19 2119Critical results verified and read back by Nurse? Y BASIC METABOLIC [id number] 17:35:00* Test Item Value Reference Range Interpretation Comments SODIUM (test code = NA) 129 mmol/L 136-145 L POTASSIUM (test code = K) 8.3 mmol/L 3.5-5.1 HH Re sults called to Dr. Estevez by [facility] 03/05/19 1732Critical results verified and read back by Nurse? CHLORIDE (test code = CL) 96.0 mmol/L 98-107 L CARBON DIOXIDE (test code = CO2) 27.0 mmol/L 21-32 N ANION GAP (test code = GAP) 14.3 10-20 N GLUCOSE (test code = GLU) 422 mg/dL 74-106 H BLOOD UREA NITROGEN (test code = BUN) 41 mg/dL 7-18 H GLOMERULAR FILTRATION RATE (test code = GFR) 6 mL/min >=60 Estimated GFR by using Modified MDRD formula.Chronic kidney disease is defined as either kidney damageor GFR <60 mL/min/1.73 m2 for >3 months. CREATININE (test code = CREAT) 6.80 mg/dL 0.55-1.02 H Note change in reference range due to change in reagent. BUN/CREATININE RATIO (test code = BUN/CREA) 6.0 10-20 L CALCIUM (test code = CA) 8.3 mg/dL 8.5-10.1 L HEPATIC FUNCTION [id number] 17:35:00* Test Item Value Reference Range Interpretation Comments TOTAL PROTEIN (test code = PROT) 8.4 gram/dL 6.4-8.2 H ALBUMIN (test code = ALB) 3.2 g/dL 3.4-5.0 L GLOBULIN (test code = GLOB) 5.2 gram/dL 2.7-4.2 H ALBUMIN/GLOBULIN RATIO (test code = A/G) 0.6 0.75-1.50 L BILIRUBIN TOTAL (test code = BILT) 0.50 mg/dL 0.0-1.0 N BILIRUBIN DIRECT (test code = BILD) 0.23 mg/dL 0.0-0.20 H SGOT/AST (test code = AST) 14 IUnit/L 15-37 L SGPT/ALT (test code = ALT) 19 IUnit/L 12-78 N ALKALINE PHOSPHATASE TOTAL (test code = ALKP) 250 IUnit/L 45-117 H Note change in reference range due to change in reagent. [id number] 17:35:00* Test Item Value Reference Range Interpretation Comments TROPONIN-I (test code = TROPI) <0.015 ng/mL 0-0.045 N CBC W/AUTO [id number] 16:23:00* Test Item Value Reference Range Interpretation Comments WHITE BLOOD CELL (test code = WBC) 9.0 K/mm3 4.5-12.5 N RED BLOOD CELL (test code = RBC) 4.62 mill/mm3 3.7-5.2 N HEMOGLOBIN (test code = HGB) 11.4 gram/dL 11.5-15.5 L HEMATOCRIT (test code = HCT) 40.3 % 36.0-46.0 N MEAN CELL VOLUME (test code = MCV) 87.2 fL 80-98 N MEAN CELL HGB (test code = MCH) 24.7 picogram 27.0-33.0 L MEAN CELL HGB CONCETRATION (test code = MCHC) 28.3 gram/dL 33.0-36. 0 L RED CELL DISTRIBUTION WIDTH (test code = RDW) 20.7 % 11.6-16. 2 H RED CELL DISTRIBUTION WIDTH SD (test code = RDW-SD) 63.7 fL 37 .0-51.0 H PLATELET COUNT (test code = PLT) 171 K/mm3 150-450 N MEAN PLATELET VOLUME (test code = MPV) 9.5 fL 6.7-11.0 N NEUTROPHIL % (test code = NT%) 83.5 % 39.0-69.0 H IMMATURE GRANULOCYTE % (test code = IG%) 0.3 % 0.0-5.0 N LYMPHOCYTE % (test code = LY%) 9.2 % 25.0-55.0 L MONOCYTE % (test code = MO%) 3.3 % 0.0-10.0 N EOSINOPHIL % (test code = EO%) 2.8 % 0.0-5.0 N BASOPHIL % (test code = BA%) 0.9 % 0.0-1.0 N NUCLEATED RBC % (test code = NRBC%) 0.0 % 0-0 N NEUTROPHIL # (test code = NT#) 7.50 K/mm3 1.8-7.7 N IMMATURE GRANULOCYTE # (test code = IG#) 0.03 x10 3/uL 0-0.03 N LYMPHOCYTE # (test code = LY#) 0.83 K/mm3 1.0-5.0 L MONOCYTE # (test code = MO#) 0.30 K/mm3 0-0.8 N EOSINOPHIL # (test code = EO#) 0.25 K/mm3 0.0-0.5 N BASOPHIL # (test code = BA#) 0.08 K/mm3 0.0-0.2 N NUCLEATED RBC # (test code = NRBC#) 0.00 K/mm3 0.0-0.1 N MANUAL DIFF REQUIRED (test code = MDIFF) NO, ONLY SCAN NEEDED DIFFERENTIAL [id number] 16:23:00* Test Item Value Reference Range Interpretation Comments STAIN ACCEPTABILITY (test code = STN ACCEPTABLE) STAIN ACCEPTABLE HYPOCHROMIA (test code = HYPO) 1+ ANISOCYTOSIS (test code = ANISO) 2+ MACROCYTOSIS (test code = MACR) 1+ PLATELET ESTIMATE (test code = PLTEST) ADEQUATE PLATELET MORPHOLOGY (test code = PLTMORPH) NORMAL CBC W/AUTO [id number] 15:54:00* Test Item Value Reference Range Interpretation Comments WHITE BLOOD CELL (test code = WBC) 9.0 K/mm3 4.5-12.5 N RED BLOOD CELL (test code = RBC) 4.62 mill/mm3 3.7-5.2 N HEMOGLOBIN (test code = HGB) 11.4 gram/dL 11.5-15.5 L HEMATOCRIT (test code = HCT) 40.3 % 36.0-46.0 N MEAN CELL VOLUME (test code = MCV) 87.2 fL 80-98 N MEAN CELL HGB (test code = MCH) 24.7 picogram 27.0-33.0 L MEAN CELL HGB CONCETRATION (test code = MCHC) 28.3 gram/dL 33.0-36. 0 L RED CELL DISTRIBUTION WIDTH (test code = RDW) 20.7 % 11.6-16. 2 H RED CELL DISTRIBUTION WIDTH SD (test code = RDW-SD) 63.7 fL 37 .0-51.0 H PLATELET COUNT (test code = PLT) 171 K/mm3 150-450 N MEAN PLATELET VOLUME (test code = MPV) 9.5 fL 6.7-11.0 N NEUTROPHIL % (test code = NT%) 83.5 % 39.0-69.0 H IMMATURE GRANULOCYTE % (test code = IG%) 0.3 % 0.0-5.0 N LYMPHOCYTE % (test code = LY%) 9.2 % 25.0-55.0 L MONOCYTE % (test code = MO%) 3.3 % 0.0-10.0 N EOSINOPHIL % (test code = EO%) 2.8 % 0.0-5.0 N BASOPHIL % (test code = BA%) 0.9 % 0.0-1.0 N NUCLEATED RBC % (test code = NRBC%) 0.0 % 0-0 N NEUTROPHIL # (test code = NT#) 7.50 K/mm3 1.8-7.7 N IMMATURE GRANULOCYTE # (test code = IG#) 0.03 x10 3/uL 0-0.03 N LYMPHOCYTE # (test code = LY#) 0.83 K/mm3 1.0-5.0 L MONOCYTE # (test code = MO#) 0.30 K/mm3 0-0.8 N EOSINOPHIL # (test code = EO#) 0.25 K/mm3 0.0-0.5 N BASOPHIL # (test code = BA#) 0.08 K/mm3 0.0-0.2 N NUCLEATED RBC # (test code = NRBC#) 0.00 K/mm3 0.0-0.1 N MANUAL DIFF REQUIRED (test code = MDIFF) NO, ONLY SCAN NEEDED DIFFERENTIAL [id number] 15:54:00* Test Item Value Reference Range Interpretation Comments STAIN ACCEPTABILITY (test code = STN ACCEPTABLE) CABOT RINGS (test code = CAB) MORPHOLOGY COMMENT (test code = MOC) PLATELET ESTIMATE (test code = PLTEST) PLATELET MORPHOLOGY (test code = PLTMORPH) CBC W/AUTO [id number] 15:54:00* Test Item Value Reference Range Interpretation Comments WHITE BLOOD CELL (test code = WBC) 9.0 K/mm3 4.5-12.5 N RED BLOOD CELL (test code = RBC) 4.62 mill/mm3 3.7-5.2 N HEMOGLOBIN (test code = HGB) 11.4 gram/dL 11.5-15.5 L HEMATOCRIT (test code = HCT) 40.3 % 36.0-46.0 N MEAN CELL VOLUME (test code = MCV) 87.2 fL 80-98 N MEAN CELL HGB (test code = MCH) 24.7 picogram 27.0-33.0 L MEAN CELL HGB CONCETRATION (test code = MCHC) 28.3 gram/dL 33.0-36. 0 L RED CELL DISTRIBUTION WIDTH (test code = RDW) 20.7 % 11.6-16. 2 H RED CELL DISTRIBUTION WIDTH SD (test code = RDW-SD) 63.7 fL 37 .0-51.0 H PLATELET COUNT (test code = PLT) 171 K/mm3 150-450 N MEAN PLATELET VOLUME (test code = MPV) 9.5 fL 6.7-11.0 N NEUTROPHIL % (test code = NT%) 83.5 % 39.0-69.0 H IMMATURE GRANULOCYTE % (test code = IG%) 0.3 % 0.0-5.0 N LYMPHOCYTE % (test code = LY%) 9.2 % 25.0-55.0 L MONOCYTE % (test code = MO%) 3.3 % 0.0-10.0 N EOSINOPHIL % (test code = EO%) 2.8 % 0.0-5.0 N BASOPHIL % (test code = BA%) 0.9 % 0.0-1.0 N NUCLEATED RBC % (test code = NRBC%) 0.0 % 0-0 N NEUTROPHIL # (test code = NT#) 7.50 K/mm3 1.8-7.7 N IMMATURE GRANULOCYTE # (test code = IG#) 0.03 x10 3/uL 0-0.03 N LYMPHOCYTE # (test code = LY#) 0.83 K/mm3 1.0-5.0 L MONOCYTE # (test code = MO#) 0.30 K/mm3 0-0.8 N EOSINOPHIL # (test code = EO#) 0.25 K/mm3 0.0-0.5 N BASOPHIL # (test code = BA#) 0.08 K/mm3 0.0-0.2 N NUCLEATED RBC # (test code = NRBC#) 0.00 K/mm3 0.0-0.1 N MANUAL DIFF REQUIRED (test code = MDIFF) NO, ONLY SCAN NEEDED DIFFERENTIAL [id number] 15:54:00* Test Item Value Reference Range Interpretation Comments STAIN ACCEPTABILITY (test code = STN ACCEPTABLE) CABOT RINGS (test code = CAB) MORPHOLOGY COMMENT (test code = MOC) PLATELET ESTIMATE (test code = PLTEST) PLATELET MORPHOLOGY (test code = PLTMORPH) CBC W/AUTO [id number] 15:54:00* Test Item Value Reference Range Interpretation Comments WHITE BLOOD CELL (test code = WBC) 9.0 K/mm3 4.5-12.5 N RED BLOOD CELL (test code = RBC) 4.62 mill/mm3 3.7-5.2 N HEMOGLOBIN (test code = HGB) 11.4 gram/dL 11.5-15.5 L HEMATOCRIT (test code = HCT) 40.3 % 36.0-46.0 N MEAN CELL VOLUME (test code = MCV) 87.2 fL 80-98 N MEAN CELL HGB (test code = MCH) 24.7 picogram 27.0-33.0 L MEAN CELL HGB CONCETRATION (test code = MCHC) 28.3 gram/dL 33.0-36. 0 L RED CELL DISTRIBUTION WIDTH (test code = RDW) 20.7 % 11.6-16. 2 H RED CELL DISTRIBUTION WIDTH SD (test code = RDW-SD) 63.7 fL 37 .0-51.0 H PLATELET COUNT (test code = PLT) 171 K/mm3 150-450 N MEAN PLATELET VOLUME (test code = MPV) 9.5 fL 6.7-11.0 N NEUTROPHIL % (test code = NT%) 83.5 % 39.0-69.0 H IMMATURE GRANULOCYTE % (test code = IG%) 0.3 % 0.0-5.0 N LYMPHOCYTE % (test code = LY%) 9.2 % 25.0-55.0 L MONOCYTE % (test code = MO%) 3.3 % 0.0-10.0 N EOSINOPHIL % (test code = EO%) 2.8 % 0.0-5.0 N BASOPHIL % (test code = BA%) 0.9 % 0.0-1.0 N NUCLEATED RBC % (test code = NRBC%) 0.0 % 0-0 N NEUTROPHIL # (test code = NT#) 7.50 K/mm3 1.8-7.7 N IMMATURE GRANULOCYTE # (test code = IG#) 0.03 x10 3/uL 0-0.03 N LYMPHOCYTE # (test code = LY#) 0.83 K/mm3 1.0-5.0 L MONOCYTE # (test code = MO#) 0.30 K/mm3 0-0.8 N EOSINOPHIL # (test code = EO#) 0.25 K/mm3 0.0-0.5 N BASOPHIL # (test code = BA#) 0.08 K/mm3 0.0-0.2 N NUCLEATED RBC # (test code = NRBC#) 0.00 K/mm3 0.0-0.1 N MANUAL DIFF REQUIRED (test code = MDIFF) NO, ONLY SCAN NEEDED DIFFERENTIAL [id number] 15:54:00* Test Item Value Reference Range Interpretation Comments STAIN ACCEPTABILITY (test code = STN ACCEPTABLE) MORPHOLOGY COMMENT (test code = MOC) PLATELET ESTIMATE (test code = PLTEST) PLATELET MORPHOLOGY (test code = PLTMORPH) CBC W/AUTO [id number] 15:54:00* Test Item Value Reference Range Interpretation Comments WHITE BLOOD CELL (test code = WBC) 9.0 K/mm3 4.5-12.5 N RED BLOOD CELL (test code = RBC) 4.62 mill/mm3 3.7-5.2 N HEMOGLOBIN (test code = HGB) 11.4 gram/dL 11.5-15.5 L HEMATOCRIT (test code = HCT) 40.3 % 36.0-46.0 N MEAN CELL VOLUME (test code = MCV) 87.2 fL 80-98 N MEAN CELL HGB (test code = MCH) 24.7 picogram 27.0-33.0 L MEAN CELL HGB CONCETRATION (test code = MCHC) 28.3 gram/dL 33.0-36. 0 L RED CELL DISTRIBUTION WIDTH (test code = RDW) 20.7 % 11.6-16. 2 H RED CELL DISTRIBUTION WIDTH SD (test code = RDW-SD) 63.7 fL 37 .0-51.0 H PLATELET COUNT (test code = PLT) 171 K/mm3 150-450 N MEAN PLATELET VOLUME (test code = MPV) 9.5 fL 6.7-11.0 N NEUTROPHIL % (test code = NT%) 83.5 % 39.0-69.0 H IMMATURE GRANULOCYTE % (test code = IG%) 0.3 % 0.0-5.0 N LYMPHOCYTE % (test code = LY%) 9.2 % 25.0-55.0 L MONOCYTE % (test code = MO%) 3.3 % 0.0-10.0 N EOSINOPHIL % (test code = EO%) 2.8 % 0.0-5.0 N BASOPHIL % (test code = BA%) 0.9 % 0.0-1.0 N NUCLEATED RBC % (test code = NRBC%) 0.0 % 0-0 N NEUTROPHIL # (test code = NT#) 7.50 K/mm3 1.8-7.7 N IMMATURE GRANULOCYTE # (test code = IG#) 0.03 x10 3/uL 0-0.03 N LYMPHOCYTE # (test code = LY#) 0.83 K/mm3 1.0-5.0 L MONOCYTE # (test code = MO#) 0.30 K/mm3 0-0.8 N EOSINOPHIL # (test code = EO#) 0.25 K/mm3 0.0-0.5 N BASOPHIL # (test code = BA#) 0.08 K/mm3 0.0-0.2 N NUCLEATED RBC # (test code = NRBC#) 0.00 K/mm3 0.0-0.1 N MANUAL DIFF REQUIRED (test code = MDIFF) NO, ONLY SCAN NEEDED DIFFERENTIAL [id number] 15:54:00* Test Item Value Reference Range Interpretation Comments STAIN ACCEPTABILITY (test code = STN ACCEPTABLE) CABOT RINGS (test code = CAB) MORPHOLOGY COMMENT (test code = MOC) PLATELET ESTIMATE (test code = PLTEST) PLATELET MORPHOLOGY (test code = PLTMORPH) CBC W/AUTO [id number] 15:52:00* Test Item Value Reference Range Interpretation Comments WHITE BLOOD CELL (test code = WBC) K/mm3 4.5-12.5 RED BLOOD CELL (test code = RBC) mill/mm3 3.7-5.2 HEMOGLOBIN (test code = HGB) gram/dL 11.5-15.5 HEMATOCRIT (test code = HCT) 40.3 % 36.0-46.0 N MEAN CELL VOLUME (test code = MCV) fL 80-98 MEAN CELL HGB (test code = MCH) picogram 27.0-33.0 MEAN CELL HGB CONCETRATION (test code = MCHC) gram/dL 33.0-36. 0 RED CELL DISTRIBUTION WIDTH (test code = RDW) % 11.6-16. 2 RED CELL DISTRIBUTION WIDTH SD (test code = RDW-SD) fL 37 .0-51.0 PLATELET COUNT (test code = PLT) K/mm3 150-450 MEAN PLATELET VOLUME (test code = MPV) fL 6.7-11.0 NEUTROPHIL % (test code = NT%) % 39.0-69.0 IMMATURE GRANULOCYTE % (test code = IG%) % 0.0-5.0 LYMPHOCYTE % (test code = LY%) % 25.0-55.0 MONOCYTE % (test code = MO%) % 0.0-10.0 EOSINOPHIL % (test code = EO%) % 0.0-5.0 BASOPHIL % (test code = BA%) % 0.0-1.0 NEUTROPHIL # (test code = NT#) K/mm3 1.8-7.7 LYMPHOCYTE # (test code = LY#) K/mm3 1.0-5.0 MONOCYTE # (test code = MO#) K/mm3 0-0.8 EOSINOPHIL # (test code = EO#) K/mm3 0.0-0.5 BASOPHIL # (test code = BA#) K/mm3 0.0-0.2 - XR CHEST 1 [id number] 15:40:00 FAX: Phillip Estevez MD [phone] [place]: B St: [facility] FAX: Jean Carlos Rosario MD [phone] Name: ERIN SCHILLING [facility] : 1950 Age/S: 68/F [address] Unit #: [id number] Loc: [place] [address] Phys: Phillip Estevez MD Acct: [id number] Dis Date: Status: REG ER PHONE #: [phone] Exam Date: 03/05/2019 1511 FAX #: [phone] Reason: Altered Mental Status EXAMS: CPT CODE: [id number] XR CHEST 1 V 83266 REASON FOR EXAM: Altered Mental Status Exam Order Date: 03/05/2019 2:39 PM Ordering M.D.: Phillip Estevez MD PROCEDURE: - XR CHEST 1 V COMPARISON: Frontal chest x-ray March 02, 2019 FINDINGS: Mildly prominent reticulations but no airspace disease. There is no pleural effusion or pneumothorax. Pulmonary vascularity is within normal limits. Cardiomediastinal silhouette is mildly prominent, similar to prior exam. The mediastinal contours are within normal limits. Musculoskeletal structures are unchanged from the previous exam. The visualized upper abdomen is within normal limits. IMPRESSION: Cardiomegaly with mild interstitial prominence suggesting mild edema. Location: [facility] at 1540 Reported and signed by: Jadiel Mijares MD CC: Phillip Estevez MD; Jean Carlos Russell MD Technologist: Yoana Kessler RT(R) Trnscrd Date/Time/By: 03/05/20 19 (1540) : By: [email or web address] Orig Print D/T: S: 03/05/2019 (5752) PAGE 1 Signed Report - XR CHEST 1 [id number] 15:40:00 FAX: Phillip Estevez MD [phone] [place]: St: [facility] FAX: Jean Carlos Rosario MD [phone] Name: ERIN SCHILLING [facility] : 1950 Age/S: 68/F [address] Unit #: [id number] Loc: [address] [place] [address] Phys: Phillip Estevez MD Acct: [id number] Dis Date: Status: ADM IN PHONE #: [phone] Exam Date: 03/05/2019 1518 FAX #: [phone] Reason: Altered Mental Status EXAMS: CPT CODE: [id number] XR CHEST 1 V 02032 REASON FOR EXAM: Altered Mental Status Exam Order Date: 03/05/2019 2:39 PM Ordering M.DYokasta: Phillip Estevez MD PROCEDURE: - XR CHEST 1 V COMPARISON: Frontal chest x- ray March 02, 2019 FINDINGS: Mildly prominent reticula tions but no airspace disease. There is no pleural effusion or pneumothor ax. Pulmonary vascularity is within normal limits. Cardiomed iastinal silhouette is mildly prominent, similar to prior exam. The medias tinal contours are within normal limits. Musculoskeletal structure s are unchanged from the previous exam. The visualized upper abdom en is within normal limits. IMPRESSION: Cardiome luigi with mild interstitial prominence suggesting mild edema. Location: [facility] at 1540 Reported and signed by: Jadiel Mijares MD CC: Phillip Estevez MD; Jean Carlos Russell MD Technologist: Yoana Kessler RT(R) Trnscrd Date/Time/By: 03/05/20 19 (7190) : By: [email or web address] Orig Print D/T: S: 03/05/2019 (8572) PAGE 1 Signed Report - CT HEAD/BRAIN W/O [id number] 15:02:00 [facility] 1950 Age/S: 68 / F [address] Unit #: [id number] Loc: [place] [address] Phys: Phillip Estevez MD Acct: [id number] Dis Date: Status: ADM IN PHONE #: [phone] Exam Date: 03/05/2019 1500 FAX #: [phone] Reason: Altered Mental Status EXAMS: CPT CODE: [id number] CT HEAD/BRAIN W/O CONT 72993 HISTORY: Confusion. COMPARISON: None available. CT brain without contrast: Automated exposure control. Location: [facility]. No acute intracranial bleeds or extra- axial collections are noted. No acute territorial vascular infarction is noted. The sulci, gyri, ventricles and subarachnoid spaces and the basilar cisterns are normal for patient's age. No herniation or hydrocephalus or midline shift is noted. Mild periventricular ischemic gliosis is noted. Age-appropriate atrophy is no nella as well. Portions of the visualized paranasal sinuses are norm al. No obvious bony calvarial defect is noted. IMP RESSION: No acute intracranial bleeds or extra-axial collectio ns. No acute territorial vascular infarction. No herniation or hydrocephalus or midline shift. Chronic wh ite matter ischemic disease and atrophy . Electr onically Signed by Torito Lovell on 03/05/2019 at 1502 Reported and signed by: Jamie Lovell M.D. CC: Phillip Estevez MD; Jean Carlos Russell MD Technologist:Cristiane Sam RT(R),CT CTDI: DLP: Trnscb Date/Time: 03/05/2019 (1502) [email or web address] Orig Print D/T: S: 03/06/2019 (6092) PAGE 1 Signed Report - CT HEAD/BRAIN W/O [id number] 15:02:00 Name: ERIN SCHILLING [facility] : 1950 Age/S: 68 / F [address] Unit #: [id number] Loc: [place] [address] Phys: Phillip Estevez MD Acct: [id number] Dis Date: Status: ADM IN PHONE #: [phone] Exam Date: 03/05/2019 1500 FAX #: [phone] Reason: Altered Mental Status EXAMS: CPT CODE: [id number] CT HEAD/BRAIN W/O CONT 80649 HISTORY: Confusion. COMPARISON: None available. CT brain without contrast: Automated exposure control. Location: [facility]. No acute intracranial bleeds or extra-axial collections are noted. No acute territorial vascular infarction is noted. The sulci, gyri, ventricles and subarachnoid spaces and the basilar cisterns are normal for patient's age. No herniation or hydrocephalus or midline shift is noted. Mild periventricular ischemic gliosis is noted. Age-appropriate atrophy is noted as well. Portions of the visualized paranasal sinuses are normal. No obvious bony calvarial defect is noted. IMPRESSION: No acute intracranial bleeds or extra-axial collections. No acute territorial vascular infarction. No herniation or hydrocephalus or midline shift. Chronic white matter ischemic disease and atrophy . at 1502 Reported and signed by: Jamie Lovell M.D. CC: Phillip Estevez MD; Jean Carlos Russell MD Technologist:Cristiane Sam RT(R),CT CTDI: DLP: Trnscb Date/Time: 03/05/2019 (1502) [email or web address] Orig Print D/T: S: 03/06/2019 (1726) PAGE 1 Signed Report - XR CHEST 1 [id number] 19:35:00 FAX: Tigre Rangel MD [phone] [place]: B St: REG Name: ERIN VALDIVIA [facility] : [birth year] Age/S: 68/F [address] Unit #: [id number] Loc: [place] [address] Phys: Tigre Rangel MD Acct: [id number] Dis Date: Status: REG ER PHONE #: [phone] Exam Date: 03/02/2019 7268 FAX #: [phone] Reason: CHEST PAIN EXAMS: CPT CODE: [id number] XR CHEST 1 V 68079 HISTORY: Chest pain. COMPARISON: None available. Location: [facility]. No acute infiltrates, effusion or congestion is noted. Moderate cardiomegaly. IMPRESSION: No acute infiltrates, effusion or co ngestion. a t 1934 Reported and signed by: Jamie Lovell M.D. CC: Tigre Rangel MD Technologist: RT LANDON(Mirza) Trnchao Pham te/Time/By: 03/02/2019 (1934) : By: [email or web address] Orig Print D/T: S: 03/02 (1937) PAGE 1 Signed Report - XR CHEST 1 [id number] 19:35:00 FAX: Tigre Rangel MD [phone] [place]: St: DEP Name: ERIN VALDIVIA [facility] : [birth year] Age/S: 68/F [address] [facility] Unit #: [id number] Loc: [place] [address] Phys: Tigre Rangel MD Acct: [id number] Dis Date: Status: DEP ER PHONE #: [phone] Exam Date: 03/02/2019 1835 FAX #: [phone] Reason: CHEST PAIN EXAMS: CPT CODE: [id number] XR CHEST 1 V 36040 HISTORY: Chest pain. COMPARISON: None available. Location: [facility]. No acute infiltrates, effusion or congestion is noted. Moderate cardiomegaly. IMPRESSION: No acute infiltrates, effusion or co ngestion. a t 1934 Reported and signed by: Jamie Lovell M.D. CC: Tigre Rangel MD Technologist: RT LANDON(R) Trnscrd Da te/Time/By: 03/02/2019 (1934) : By: [email or web address] Orig Print D/T: S: 03/02 (1937) PAGE 1 Signed Report BASIC METABOLIC [id number] 18:55:00* Test Item Value Reference Range Interpretation Comments SODIUM (test code = NA) 133 mmol/L 136-145 L POTASSIUM (test code = K) 4.6 mmol/L 3.5-5.1 N CHLORIDE (test code = CL) 94.0 mmol/L 98-107 L CARBON DIOXIDE (test code = CO2) 32.0 mmol/L 21-32 N ANION GAP (test code = GAP) 11.6 10-20 N GLUCOSE (test code = GLU) 180 mg/dL 74-106 H BLOOD UREA NITROGEN (test code = BUN) 27 mg/dL 7-18 H GLOMERULAR FILTRATION RATE (test code = GFR) 8 mL/min >=60 Estimated GFR by using Modified MDRD formula.Chronic kidney disease is defined as either kidney damageor GFR <60 mL/min/1.73 m2 for >3 months. CREATININE (test code = CREAT) 5.30 mg/dL 0.55-1.02 H Note change in reference range due to change in reagent. BUN/CREATININE RATIO (test code = BUN/CREA) 5.1 10-20 L CALCIUM (test code = CA) 8.4 mg/dL 8.5-10.1 L [id number] 18:55:00* Test Item Value Reference Range Interpretation Comments TROPONIN-I (test code = TROPI) <0.015 ng/mL 0-0.045 N BASIC METABOLIC [id number] 18:46:00* Test Item Value Reference Range Interpretation Comments SODIUM (test code = NA) 133 mmol/L 136-145 L POTASSIUM (test code = K) 4.6 mmol/L 3.5-5.1 N CHLORIDE (test code = CL) 94.0 mmol/L 98-107 L CARBON DIOXIDE (test code = CO2) mmol/L 21-32 ANION GAP (test code = GAP) 10-20 GLUCOSE (test code = GLU) mg/dL 74-106 BLOOD UREA NITROGEN (test code = BUN) mg/dL 7-18 GLOMERULAR FILTRATION RATE (test code = GFR) mL/min >=60 CREATININE (test code = CREAT) mg/dL 0.55-1.02 BUN/CREATININE RATIO (test code = BUN/CREA) 10-20 CALCIUM (test code = CA) 8.4 mg/dL 8.5-10.1 L [id number] 18:46:00* Test Item Value Reference Range Interpretation Comments TROPONIN-I (test code = TROPI) ng/mL 0-0.045 CBC W/O [id number] 18:31:00* Test Item Value Reference Range Interpretation Comments WHITE BLOOD CELL (test code = WBC) 6.9 K/mm3 4.5-12.5 N RED BLOOD CELL (test code = RBC) 4.47 mill/mm3 3.7-5.2 N HEMOGLOBIN (test code = HGB) 10.9 gram/dL 11.5-15.5 L HEMATOCRIT (test code = HCT) 38.3 % 36.0-46.0 N MEAN CELL VOLUME (test code = MCV) 85.7 fL 80-98 N MEAN CELL HGB (test code = MCH) 24.4 picogram 27.0-33.0 L MEAN CELL HGB CONCETRATION (test code = MCHC) 28.5 gram/dL 33.0-36. 0 L RED CELL DISTRIBUTION WIDTH (test code = RDW) 20.2 % 11.6-16. 2 H PLATELET COUNT (test code = PLT) 217 K/mm3 150-450 N MEAN PLATELET VOLUME (test code = MPV) 9.1 fL 6.7-11.0 N PROTHROMBIN [id number] 13:45:00* Test Item Value Reference Range Interpretation Comments PROTHROMBIN TIME PATIENT (test code = PTP) 14.3 seconds 9.0-14.0 H INTERNATIONAL NORMAL RATIO (test code = INR) 1.2 0.8-1.2 N The therapeutic range for oral anticoagulant therapy formost indications is an international normalized ratio (INR)of between 2.0 and 3.0. The recommended therapeutic INRrange for various clinical situations is listed below: Clinical Situation INR range Pulmonary e mbolism treatment (2.0-3.0)Venous thrombosis treatmentVenous thrombosis prophylaxis (high risk surgery)Prevention of systemic embolism from: Acute myocardial infarction Valvular heart disease Atrial fibrillation Mechanical prosthetic heart valves (2.5-3.5) COAGULATION TIME [id number] 13:43:00* Test Item Value Reference Range Interpretation Comments COAGULATION TIME ACTIVATED (test code = ACT) 443 seconds 62.8-88.0 H COAGULATION TIME [id number] 13:43:00* Test Item Value Reference Range Interpretation Comments COAGULATION TIME ACTIVATED (test code = ACT) 440 seconds 62.8-88.0 H PROTHROMBIN [id number] 15:50:00* Test Item Value Reference Range Interpretation Comments PROTHROMBIN TIME PATIENT (test code = PTP) 68.3 seconds 9.0-14.0 H INTERNATIONAL NORMAL RATIO (test code = INR) 5.8 0.8-1.2 Results called to ELISHA by NEEL 01/09/19 1550Critical results verified and read back by Nurse? YThe therapeutic range for oral anticoagulant therapy formost indications is an international normalized ratio (INR)of between 2.0 and 3.0. The recommended therapeutic INRrange for various clinical situations is listed below: Clinical Situation INR range Pulmonary embolism treatment (2.0-3.0)Venous thrombosis treatmentVenous thrombosis prophylaxis (high risk surgery)Prevention of systemic embolism from: Acute myocardial infarction Valvular heart disease Atrial fibrillation Mechanical prosthetic heart valves (2.5-3.5) [id number] 11:33:00* Test Item Value Reference Range Interpretation Comments GLUBED (test code = GLUBED) 167 mg/dL 74-106 H Performed by certified call center operator at [facility] PROTHROMBIN [id number] 05:38:00* Test Item Value Reference Range Interpretation Comments PROTHROMBIN TIME PATIENT (test code = PTP) 28.9 seconds 9.0-14.0 H INTERNATIONAL NORMAL RATIO (test code = INR) 2.5 0.8-1.2 H The therapeutic range for oral anticoagulant therapy formost indications is an international normalized ratio (INR)of between 2.0 and 3.0. The recommended therapeutic INRrange for various clinical situations is listed below: Clinical Situation INR range Pulmonary e mbolism treatment (2.0-3.0)Venous thrombosis treatmentVenous thrombosis prophylaxis (high risk surgery)Prevention of systemic embolism from: Acute myocardial infarction Valvular heart disease Atrial fibrillation Mechanical prosthetic heart valves (2.5-3.5) IS PATIENT ON ANTICOAGULANTS? YLIST ANTICOAGULANTS [id number] 04:57:00* Test Item Value Reference Range Interpretation Comments GLUBED (test code = GLUBED) 126 mg/dL 74-106 H Performed by certified call center operator at [facility] [id number] 20:36:00* Test Item Value Reference Range Interpretation Comments GLUBED (test code = GLUBED) 119 mg/dL 74-106 H Performed by certified call center operator at [facility] [id number] 16:55:00* Test Item Value Reference Range Interpretation Comments GLUBED (test code = GLUBED) 166 mg/dL 74-106 H Performed by certified call center operator at [facility] BASIC METABOLIC [id number] 07:24:00* Test Item Value Reference Range Interpretation Comments SODIUM (test code = NA) 131 mmol/L 136-145 L POTASSIUM (test code = K) 5.5 mmol/L 3.5-5.1 H CHLORIDE (test code = CL) 97.0 mmol/L 98-107 L CARBON DIOXIDE (test code = CO2) 23.0 mmol/L 21-32 N ANION GAP (test code = GAP) 16.5 10-20 N GLUCOSE (test code = GLU) 105 mg/dL 74-106 N BLOOD UREA NITROGEN (test code = BUN) 26 mg/dL 7-18 H GLOMERULAR FILTRATION RATE (test code = GFR) 7 mL/min >=60 Estimated GFR by using Modified MDRD formula.Chronic kidney disease is defined as either kidney damageor GFR <60 mL/min/1.73 m2 for >3 months. CREATININE (test code = CREAT) 6.10 mg/dL 0.55-1.02 H Note change in reference range due to change in reagent. BUN/CREATININE RATIO (test code = BUN/CREA) 4.3 10-20 L CALCIUM (test code = CA) 7.9 mg/dL 8.5-10.1 L CBC W/AUTO [id number] 06:29:00* Test Item Value Reference Range Interpretation Comments WHITE BLOOD CELL (test code = WBC) 8.8 K/mm3 4.5-12.5 N RED BLOOD CELL (test code = RBC) 4.30 mill/mm3 3.7-5.2 N HEMOGLOBIN (test code = HGB) 11.0 gram/dL 11.5-15.5 L HEMATOCRIT (test code = HCT) 38.0 % 36.0-46.0 N MEAN CELL VOLUME (test code = MCV) 88.4 fL 80-98 N MEAN CELL HGB (test code = MCH) 25.6 picogram 27.0-33.0 L MEAN CELL HGB CONCETRATION (test code = MCHC) 28.9 gram/dL 33.0-36. 0 L RED CELL DISTRIBUTION WIDTH (test code = RDW) 16.2 % 11.6-16. 2 N RED CELL DISTRIBUTION WIDTH SD (test code = RDW-SD) 52.4 fL 37 .0-51.0 H PLATELET COUNT (test code = PLT) 202 K/mm3 150-450 N MEAN PLATELET VOLUME (test code = MPV) 9.6 fL 6.7-11.0 N NEUTROPHIL % (test code = NT%) 82.1 % 39.0-69.0 H IMMATURE GRANULOCYTE % (test code = IG%) 0.2 % 0.0-5.0 N LYMPHOCYTE % (test code = LY%) 8.7 % 25.0-55.0 L MONOCYTE % (test code = MO%) 6.1 % 0.0-10.0 N EOSINOPHIL % (test code = EO%) 2.1 % 0.0-5.0 N BASOPHIL % (test code = BA%) 0.8 % 0.0-1.0 N NUCLEATED RBC % (test code = NRBC%) 0.0 % 0-0 N NEUTROPHIL # (test code = NT#) 7.19 K/mm3 1.8-7.7 N IMMATURE GRANULOCYTE # (test code = IG#) 0.02 x10 3/uL 0-0.03 N LYMPHOCYTE # (test code = LY#) 0.76 K/mm3 1.0-5.0 L MONOCYTE # (test code = MO#) 0.53 K/mm3 0-0.8 N EOSINOPHIL # (test code = EO#) 0.18 K/mm3 0.0-0.5 N BASOPHIL # (test code = BA#) 0.07 K/mm3 0.0-0.2 N NUCLEATED RBC # (test code = NRBC#) 0.00 K/mm3 0.0-0.1 N MANUAL DIFF REQUIRED (test code = MDIFF) NO, ONLY SCAN NEEDED DIFFERENTIAL [id number] 06:29:00* Test Item Value Reference Range Interpretation Comments STAIN ACCEPTABILITY (test code = STN ACCEPTABLE) STAIN ACCEPTABLE HYPOCHROMIA (test code = HYPO) 1+ PLATELET ESTIMATE (test code = PLTEST) ADEQUATE PLATELET MORPHOLOGY (test code = PLTMORPH) NORMAL PROTHROMBIN [id number] 05:54:00* Test Item Value Reference Range Interpretation Comments PROTHROMBIN TIME PATIENT (test code = PTP) 27.2 seconds 9.0-14.0 H INTERNATIONAL NORMAL RATIO (test code = INR) 2.3 0.8-1.2 H The therapeutic range for oral anticoagulant therapy formost indications is an international normalized ratio (INR)of between 2.0 and 3.0. The recommended therapeutic INRrange for various clinical situations is listed below: Clinical Situation INR range Pulmonary e mbolism treatment (2.0-3.0)Venous thrombosis treatmentVenous thrombosis prophylaxis (high risk surgery)Prevention of systemic embolism from: Acute myocardial infarction Valvular heart disease Atrial fibrillation Mechanical prosthetic heart valves (2.5-3.5) IS PATIENT ON ANTICOAGULANTS? YLIST ANTICOAGULANTS COUMADINCBC W/AUTO DIFF 2018-12-23 05:50:00* Test Item Value Reference Range Interpretation Comments WHITE BLOOD CELL (test code = WBC) 8.8 K/mm3 4.5-12.5 N RED BLOOD CELL (test code = RBC) 4.30 mill/mm3 3.7-5.2 N HEMOGLOBIN (test code = HGB) 11.0 gram/dL 11.5-15.5 L HEMATOCRIT (test code = HCT) 38.0 % 36.0-46.0 N MEAN CELL VOLUME (test code = MCV) 88.4 fL 80-98 N MEAN CELL HGB (test code = MCH) 25.6 picogram 27.0-33.0 L MEAN CELL HGB CONCETRATION (test code = MCHC) 28.9 gram/dL 33.0-36. 0 L RED CELL DISTRIBUTION WIDTH (test code = RDW) 16.2 % 11.6-16. 2 N RED CELL DISTRIBUTION WIDTH SD (test code = RDW-SD) 52.4 fL 37 .0-51.0 H PLATELET COUNT (test code = PLT) 202 K/mm3 150-450 N MEAN PLATELET VOLUME (test code = MPV) 9.6 fL 6.7-11.0 N NEUTROPHIL % (test code = NT%) 82.1 % 39.0-69.0 H IMMATURE GRANULOCYTE % (test code = IG%) 0.2 % 0.0-5.0 N LYMPHOCYTE % (test code = LY%) 8.7 % 25.0-55.0 L MONOCYTE % (test code = MO%) 6.1 % 0.0-10.0 N EOSINOPHIL % (test code = EO%) 2.1 % 0.0-5.0 N BASOPHIL % (test code = BA%) 0.8 % 0.0-1.0 N NUCLEATED RBC % (test code = NRBC%) 0.0 % 0-0 N NEUTROPHIL # (test code = NT#) 7.19 K/mm3 1.8-7.7 N IMMATURE GRANULOCYTE # (test code = IG#) 0.02 x10 3/uL 0-0.03 N LYMPHOCYTE # (test code = LY#) 0.76 K/mm3 1.0-5.0 L MONOCYTE # (test code = MO#) 0.53 K/mm3 0-0.8 N EOSINOPHIL # (test code = EO#) 0.18 K/mm3 0.0-0.5 N BASOPHIL # (test code = BA#) 0.07 K/mm3 0.0-0.2 N NUCLEATED RBC # (test code = NRBC#) 0.00 K/mm3 0.0-0.1 N MANUAL DIFF REQUIRED (test code = MDIFF) NO, ONLY SCAN NEEDED DIFFERENTIAL [id number] 05:50:00* Test Item Value Reference Range Interpretation Comments STAIN ACCEPTABILITY (test code = STN ACCEPTABLE) CABOT RINGS (test code = CAB) MORPHOLOGY COMMENT (test code = MOC) PLATELET ESTIMATE (test code = PLTEST) PLATELET MORPHOLOGY (test code = PLTMORPH) CBC W/AUTO [id number] 05:50:00* Test Item Value Reference Range Interpretation Comments WHITE BLOOD CELL (test code = WBC) 8.8 K/mm3 4.5-12.5 N RED BLOOD CELL (test code = RBC) 4.30 mill/mm3 3.7-5.2 N HEMOGLOBIN (test code = HGB) 11.0 gram/dL 11.5-15.5 L HEMATOCRIT (test code = HCT) 38.0 % 36.0-46.0 N MEAN CELL VOLUME (test code = MCV) 88.4 fL 80-98 N MEAN CELL HGB (test code = MCH) 25.6 picogram 27.0-33.0 L MEAN CELL HGB CONCETRATION (test code = MCHC) 28.9 gram/dL 33.0-36. 0 L RED CELL DISTRIBUTION WIDTH (test code = RDW) 16.2 % 11.6-16. 2 N RED CELL DISTRIBUTION WIDTH SD (test code = RDW-SD) 52.4 fL 37 .0-51.0 H PLATELET COUNT (test code = PLT) 202 K/mm3 150-450 N MEAN PLATELET VOLUME (test code = MPV) 9.6 fL 6.7-11.0 N NEUTROPHIL % (test code = NT%) 82.1 % 39.0-69.0 H IMMATURE GRANULOCYTE % (test code = IG%) 0.2 % 0.0-5.0 N LYMPHOCYTE % (test code = LY%) 8.7 % 25.0-55.0 L MONOCYTE % (test code = MO%) 6.1 % 0.0-10.0 N EOSINOPHIL % (test code = EO%) 2.1 % 0.0-5.0 N BASOPHIL % (test code = BA%) 0.8 % 0.0-1.0 N NUCLEATED RBC % (test code = NRBC%) 0.0 % 0-0 N NEUTROPHIL # (test code = NT#) 7.19 K/mm3 1.8-7.7 N IMMATURE GRANULOCYTE # (test code = IG#) 0.02 x10 3/uL 0-0.03 N LYMPHOCYTE # (test code = LY#) 0.76 K/mm3 1.0-5.0 L MONOCYTE # (test code = MO#) 0.53 K/mm3 0-0.8 N EOSINOPHIL # (test code = EO#) 0.18 K/mm3 0.0-0.5 N BASOPHIL # (test code = BA#) 0.07 K/mm3 0.0-0.2 N NUCLEATED RBC # (test code = NRBC#) 0.00 K/mm3 0.0-0.1 N MANUAL DIFF REQUIRED (test code = MDIFF) NO, ONLY SCAN NEEDED DIFFERENTIAL [id number] 05:50:00* Test Item Value Reference Range Interpretation Comments STAIN ACCEPTABILITY (test code = STN ACCEPTABLE) MORPHOLOGY COMMENT (test code = MOC) PLATELET ESTIMATE (test code = PLTEST) PLATELET MORPHOLOGY (test code = PLTMORPH) CBC W/AUTO [id number] 05:50:00* Test Item Value Reference Range Interpretation Comments WHITE BLOOD CELL (test code = WBC) 8.8 K/mm3 4.5-12.5 N RED BLOOD CELL (test code = RBC) 4.30 mill/mm3 3.7-5.2 N HEMOGLOBIN (test code = HGB) 11.0 gram/dL 11.5-15.5 L HEMATOCRIT (test code = HCT) 38.0 % 36.0-46.0 N MEAN CELL VOLUME (test code = MCV) 88.4 fL 80-98 N MEAN CELL HGB (test code = MCH) 25.6 picogram 27.0-33.0 L MEAN CELL HGB CONCETRATION (test code = MCHC) 28.9 gram/dL 33.0-36. 0 L RED CELL DISTRIBUTION WIDTH (test code = RDW) 16.2 % 11.6-16. 2 N RED CELL DISTRIBUTION WIDTH SD (test code = RDW-SD) 52.4 fL 37 .0-51.0 H PLATELET COUNT (test code = PLT) 202 K/mm3 150-450 N MEAN PLATELET VOLUME (test code = MPV) 9.6 fL 6.7-11.0 N NEUTROPHIL % (test code = NT%) 82.1 % 39.0-69.0 H IMMATURE GRANULOCYTE % (test code = IG%) 0.2 % 0.0-5.0 N LYMPHOCYTE % (test code = LY%) 8.7 % 25.0-55.0 L MONOCYTE % (test code = MO%) 6.1 % 0.0-10.0 N EOSINOPHIL % (test code = EO%) 2.1 % 0.0-5.0 N BASOPHIL % (test code = BA%) 0.8 % 0.0-1.0 N NUCLEATED RBC % (test code = NRBC%) 0.0 % 0-0 N NEUTROPHIL # (test code = NT#) 7.19 K/mm3 1.8-7.7 N IMMATURE GRANULOCYTE # (test code = IG#) 0.02 x10 3/uL 0-0.03 N LYMPHOCYTE # (test code = LY#) 0.76 K/mm3 1.0-5.0 L MONOCYTE # (test code = MO#) 0.53 K/mm3 0-0.8 N EOSINOPHIL # (test code = EO#) 0.18 K/mm3 0.0-0.5 N BASOPHIL # (test code = BA#) 0.07 K/mm3 0.0-0.2 N NUCLEATED RBC # (test code = NRBC#) 0.00 K/mm3 0.0-0.1 N MANUAL DIFF REQUIRED (test code = MDIFF) NO, ONLY SCAN NEEDED DIFFERENTIAL [id number] 05:50:00* Test Item Value Reference Range Interpretation Comments STAIN ACCEPTABILITY (test code = STN ACCEPTABLE) MORPHOLOGY COMMENT (test code = MOC) PLATELET ESTIMATE (test code = PLTEST) PLATELET MORPHOLOGY (test code = PLTMORPH) CBC W/AUTO [id number] 05:50:00* Test Item Value Reference Range Interpretation Comments WHITE BLOOD CELL (test code = WBC) 8.8 K/mm3 4.5-12.5 N RED BLOOD CELL (test code = RBC) 4.30 mill/mm3 3.7-5.2 N HEMOGLOBIN (test code = HGB) 11.0 gram/dL 11.5-15.5 L HEMATOCRIT (test code = HCT) 38.0 % 36.0-46.0 N MEAN CELL VOLUME (test code = MCV) 88.4 fL 80-98 N MEAN CELL HGB (test code = MCH) 25.6 picogram 27.0-33.0 L MEAN CELL HGB CONCETRATION (test code = MCHC) 28.9 gram/dL 33.0-36. 0 L RED CELL DISTRIBUTION WIDTH (test code = RDW) 16.2 % 11.6-16. 2 N RED CELL DISTRIBUTION WIDTH SD (test code = RDW-SD) 52.4 fL 37 .0-51.0 H PLATELET COUNT (test code = PLT) 202 K/mm3 150-450 N MEAN PLATELET VOLUME (test code = MPV) 9.6 fL 6.7-11.0 N NEUTROPHIL % (test code = NT%) 82.1 % 39.0-69.0 H IMMATURE GRANULOCYTE % (test code = IG%) 0.2 % 0.0-5.0 N LYMPHOCYTE % (test code = LY%) 8.7 % 25.0-55.0 L MONOCYTE % (test code = MO%) 6.1 % 0.0-10.0 N EOSINOPHIL % (test code = EO%) 2.1 % 0.0-5.0 N BASOPHIL % (test code = BA%) 0.8 % 0.0-1.0 N NUCLEATED RBC % (test code = NRBC%) 0.0 % 0-0 N NEUTROPHIL # (test code = NT#) 7.19 K/mm3 1.8-7.7 N IMMATURE GRANULOCYTE # (test code = IG#) 0.02 x10 3/uL 0-0.03 N LYMPHOCYTE # (test code = LY#) 0.76 K/mm3 1.0-5.0 L MONOCYTE # (test code = MO#) 0.53 K/mm3 0-0.8 N EOSINOPHIL # (test code = EO#) 0.18 K/mm3 0.0-0.5 N BASOPHIL # (test code = BA#) 0.07 K/mm3 0.0-0.2 N NUCLEATED RBC # (test code = NRBC#) 0.00 K/mm3 0.0-0.1 N MANUAL DIFF REQUIRED (test code = MDIFF) NO, ONLY SCAN NEEDED DIFFERENTIAL [id number] 05:50:00* Test Item Value Reference Range Interpretation Comments STAIN ACCEPTABILITY (test code = STN ACCEPTABLE) CABOT RINGS (test code = CAB) MORPHOLOGY COMMENT (test code = MOC) PLATELET ESTIMATE (test code = PLTEST) PLATELET MORPHOLOGY (test code = PLTMORPH) CBC W/AUTO [id number] 05:48:00* Test Item Value Reference Range Interpretation Comments WHITE BLOOD CELL (test code = WBC) K/mm3 4.5-12.5 RED BLOOD CELL (test code = RBC) mill/mm3 3.7-5.2 HEMOGLOBIN (test code = HGB) gram/dL 11.5-15.5 HEMATOCRIT (test code = HCT) 38.0 % 36.0-46.0 N MEAN CELL VOLUME (test code = MCV) fL 80-98 MEAN CELL HGB (test code = MCH) picogram 27.0-33.0 MEAN CELL HGB CONCETRATION (test code = MCHC) gram/dL 33.0-36. 0 RED CELL DISTRIBUTION WIDTH (test code = RDW) % 11.6-16. 2 RED CELL DISTRIBUTION WIDTH SD (test code = RDW-SD) fL 37 .0-51.0 PLATELET COUNT (test code = PLT) K/mm3 150-450 MEAN PLATELET VOLUME (test code = MPV) fL 6.7-11.0 NEUTROPHIL % (test code = NT%) % 39.0-69.0 IMMATURE GRANULOCYTE % (test code = IG%) % 0.0-5.0 LYMPHOCYTE % (test code = LY%) % 25.0-55.0 MONOCYTE % (test code = MO%) % 0.0-10.0 EOSINOPHIL % (test code = EO%) % 0.0-5.0 BASOPHIL % (test code = BA%) % 0.0-1.0 NEUTROPHIL # (test code = NT#) K/mm3 1.8-7.7 LYMPHOCYTE # (test code = LY#) K/mm3 1.0-5.0 MONOCYTE # (test code = MO#) K/mm3 0-0.8 EOSINOPHIL # (test code = EO#) K/mm3 0.0-0.5 BASOPHIL # (test code = BA#) K/mm3 0.0-0.2 [id number] 05:05:00* Test Item Value Reference Range Interpretation Comments GLUBED (test code = GLUBED) 106 mg/dL 74-106 N Performed by certified call center operator at [facility] [id number] 21:13:00* Test Item Value Reference Range Interpretation Comments GLUBED (test code = GLUBED) 102 mg/dL 74-106 N Performed by certified call center operator at [facility] [id number] 17:59:00* Test Item Value Reference Range Interpretation Comments GLUBED (test code = GLUBED) 89 mg/dL 74-106 N Performed by certified call center operator at [facility] [id number] 17:34:00* Test Item Value Reference Range Interpretation Comments GLUBED (test code = GLUBED) 53 mg/dL 74-106 L Performed by certified call center operator at [facility] [id number] 10:50:00* Test Item Value Reference Range Interpretation Comments GLUBED (test code = GLUBED) 229 mg/dL 74-106 H Performed by certified call center operator at [facility] - CT HEART W CN [id number] 08:52:00 Name: ERIN SCHILLING [facility] : 1950 Age/S: 68 / F [address] Unit #: [id number] Loc: [place] [address] Phys: Selwyn Bustamante MD Acct: [id number] Dis Date: Status: ADM IN PHONE #: [phone] Exam Date: 12/21/2018 1653 FAX #: [phone] Reason: Pulomnary vein protocol. Pre A fib ablation EXAMS: CPT CODE: [id number] CT HEART W CN ART/GRAFTS [id number] REASON FOR EXAM: Pulomnary vein protocol. Pre A fib ablation EXAM ORDER DATE: 12/21/2018 5:50 PM Ordering M.D.: Selwyn Hayes MD PROCEDURE: - CT HEART W CN ART/GRAFTS COMPARISON: FINDINGS: Cardiac gated axial images of the heart were obtained with IV contrast. Dose reduction techniques were applied. Reconstructed 3-D angiogram of the pulmonary veins were obtained using ablation protocol The left atrium is minimally enlarged. The right inferior pulmonary vein measured 1.5 x 1.8 cm. The right superior pulmonary vein measured 2.7 x 2.1 cm. The left inferior pulmonary vein measured 1.8 x 2.3 cm. The left superior pulmonary vein measured 2.8 x 1.8 cm. IMPRESSION: Please refer to the included charts and diagrams for orientation and dimension of the pulmonary veins at 0852 Reported and signed by: Miguel Macias M.D. CC: Alaina Alonzo; Tai Florez MD; Selwyn Bustamante MD Techno logist:Cristiane Sam RT(R),CT; CTDI: DLP: Trnscb Date/Time : 12/22/2018 (0852) [email or web address] Orig Print D/T: S: 12/23/19 (0855) PAGE 1 Signed Report PROTHROMBIN [id number] 05:06:00* Test Item Value Reference Range Interpretation Comments PROTHROMBIN TIME PATIENT (test code = PTP) 31.2 seconds 9.0-14.0 H INTERNATIONAL NORMAL RATIO (test code = INR) 2.7 0.8-1.2 H The therapeutic range for oral anticoagulant therapy formost indications is an international normalized ratio (INR)of between 2.0 and 3.0. The recommended therapeutic INRrange for various clinical situations is listed below: Clinical Situation INR range Pulmonary e mbolism treatment (2.0-3.0)Venous thrombosis treatmentVenous thrombosis prophylaxis (high risk surgery)Prevention of systemic embolism from: Acute myocardial infarction Valvular heart disease Atrial fibrillation Mechanical prosthetic heart valves (2.5-3.5) IS PATIENT ON ANTICOAGULANTS? YLIST ANTICOAGULANTS [id number] 04:55:00* Test Item Value Reference Range Interpretation Comments GLUBED (test code = GLUBED) 141 mg/dL 74-106 H Performed by certified call center operator at [facility] [id number] 21:30:00* Test Item Value Reference Range Interpretation Comments GLUBED (test code = GLUBED) 146 mg/dL 74-106 H Performed by certified call center operator at [facility] [id number] 17:36:00* Test Item Value Reference Range Interpretation Comments GLUBED (test code = GLUBED) 178 mg/dL 74-106 H Performed by certified call center operator at [facility] PROTHROMBIN [id number] 11:34:00* Test Item Value Reference Range Interpretation Comments PROTHROMBIN TIME PATIENT (test code = PTP) 40.3 seconds 9.0-14.0 H INTERNATIONAL NORMAL RATIO (test code = INR) 3.4 0.8-1.2 H The therapeutic range for oral anticoagulant therapy formost indications is an international normalized ratio (INR)of between 2.0 and 3.0. The recommended therapeutic INRrange for various clinical situations is listed below: Clinical Situation INR range Pulmonary e mbolism treatment (2.0-3.0)Venous thrombosis treatmentVenous thrombosis prophylaxis (high risk surgery)Prevention of systemic embolism from: Acute myocardial infarction Valvular heart disease Atrial fibrillation Mechanical prosthetic heart valves (2.5-3.5) IS PATIENT ON ANTICOAGULANTS? YLIST ANTICOAGULANTS COUMADINCBC W/AUTO DIFF 2018-12-21 08:48:00* Test Item Value Reference Range Interpretation Comments WHITE BLOOD CELL (test code = WBC) 8.0 K/mm3 4.5-12.5 N RED BLOOD CELL (test code = RBC) 3.84 mill/mm3 3.7-5.2 N HEMOGLOBIN (test code = HGB) 9.7 gram/dL 11.5-15.5 L HEMATOCRIT (test code = HCT) 32.7 % 36.0-46.0 L MEAN CELL VOLUME (test code = MCV) 85.2 fL 80-98 N MEAN CELL HGB (test code = MCH) 25.3 picogram 27.0-33.0 L MEAN CELL HGB CONCETRATION (test code = MCHC) 29.7 gram/dL 33.0-36. 0 L RED CELL DISTRIBUTION WIDTH (test code = RDW) 16.2 % 11.6-16. 2 N RED CELL DISTRIBUTION WIDTH SD (test code = RDW-SD) 50.4 fL 37 .0-51.0 N PLATELET COUNT (test code = PLT) 232 K/mm3 150-450 N MEAN PLATELET VOLUME (test code = MPV) 9.8 fL 6.7-11.0 N NEUTROPHIL % (test code = NT%) 84.9 % 39.0-69.0 H IMMATURE GRANULOCYTE % (test code = IG%) 0.2 % 0.0-5.0 N LYMPHOCYTE % (test code = LY%) 8.2 % 25.0-55.0 L MONOCYTE % (test code = MO%) 4.1 % 0.0-10.0 N EOSINOPHIL % (test code = EO%) 1.9 % 0.0-5.0 N BASOPHIL % (test code = BA%) 0.7 % 0.0-1.0 N NUCLEATED RBC % (test code = NRBC%) 0.0 % 0-0 N NEUTROPHIL # (test code = NT#) 6.81 K/mm3 1.8-7.7 N IMMATURE GRANULOCYTE # (test code = IG#) 0.02 x10 3/uL 0-0.03 N LYMPHOCYTE # (test code = LY#) 0.66 K/mm3 1.0-5.0 L MONOCYTE # (test code = MO#) 0.33 K/mm3 0-0.8 N EOSINOPHIL # (test code = EO#) 0.15 K/mm3 0.0-0.5 N BASOPHIL # (test code = BA#) 0.06 K/mm3 0.0-0.2 N NUCLEATED RBC # (test code = NRBC#) 0.00 K/mm3 0.0-0.1 N MANUAL DIFF REQUIRED (test code = MDIFF) NO, ONLY SCAN NEEDED DIFFERENTIAL [id number] 08:48:00* Test Item Value Reference Range Interpretation Comments STAIN ACCEPTABILITY (test code = STN ACCEPTABLE) STAIN ACCEPTABLE POLYCHROMASIA (test code = POLC) 1+ HYPOCHROMIA (test code = HYPO) 2+ ANISOCYTOSIS (test code = ANISO) 1+ PLATELET ESTIMATE (test code = PLTEST) ADEQUATE PLATELET MORPHOLOGY (test code = PLTMORPH) NORMAL BASIC METABOLIC [id number] 07:56:00* Test Item Value Reference Range Interpretation Comments SODIUM (test code = NA) 133 mmol/L 136-145 L POTASSIUM (test code = K) 4.5 mmol/L 3.5-5.1 N CHLORIDE (test code = CL) 98.0 mmol/L 98-107 N CARBON DIOXIDE (test code = CO2) 25.0 mmol/L 21-32 N ANION GAP (test code = GAP) 14.5 10-20 N GLUCOSE (test code = GLU) 173 mg/dL 74-106 H BLOOD UREA NITROGEN (test code = BUN) 31 mg/dL 7-18 H GLOMERULAR FILTRATION RATE (test code = GFR) 7 mL/min >=60 Estimated GFR by using Modified MDRD formula.Chronic kidney disease is defined as either kidney damageor GFR <60 mL/min/1.73 m2 for >3 months. CREATININE (test code = CREAT) 6.30 mg/dL 0.55-1.02 H Note change in reference range due to change in reagent. BUN/CREATININE RATIO (test code = BUN/CREA) 4.9 10-20 L CALCIUM (test code = CA) 8.0 mg/dL 8.5-10.1 L CBC W/AUTO [id number] 07:54:00* Test Item Value Reference Range Interpretation Comments WHITE BLOOD CELL (test code = WBC) 8.0 K/mm3 4.5-12.5 N RED BLOOD CELL (test code = RBC) 3.84 mill/mm3 3.7-5.2 N HEMOGLOBIN (test code = HGB) 9.7 gram/dL 11.5-15.5 L HEMATOCRIT (test code = HCT) 32.7 % 36.0-46.0 L MEAN CELL VOLUME (test code = MCV) 85.2 fL 80-98 N MEAN CELL HGB (test code = MCH) 25.3 picogram 27.0-33.0 L MEAN CELL HGB CONCETRATION (test code = MCHC) 29.7 gram/dL 33.0-36. 0 L RED CELL DISTRIBUTION WIDTH (test code = RDW) 16.2 % 11.6-16. 2 N RED CELL DISTRIBUTION WIDTH SD (test code = RDW-SD) 50.4 fL 37 .0-51.0 N PLATELET COUNT (test code = PLT) 232 K/mm3 150-450 N MEAN PLATELET VOLUME (test code = MPV) 9.8 fL 6.7-11.0 N NEUTROPHIL % (test code = NT%) 84.9 % 39.0-69.0 H IMMATURE GRANULOCYTE % (test code = IG%) 0.2 % 0.0-5.0 N LYMPHOCYTE % (test code = LY%) 8.2 % 25.0-55.0 L MONOCYTE % (test code = MO%) 4.1 % 0.0-10.0 N EOSINOPHIL % (test code = EO%) 1.9 % 0.0-5.0 N BASOPHIL % (test code = BA%) 0.7 % 0.0-1.0 N NUCLEATED RBC % (test code = NRBC%) 0.0 % 0-0 N NEUTROPHIL # (test code = NT#) 6.81 K/mm3 1.8-7.7 N IMMATURE GRANULOCYTE # (test code = IG#) 0.02 x10 3/uL 0-0.03 N LYMPHOCYTE # (test code = LY#) 0.66 K/mm3 1.0-5.0 L MONOCYTE # (test code = MO#) 0.33 K/mm3 0-0.8 N EOSINOPHIL # (test code = EO#) 0.15 K/mm3 0.0-0.5 N BASOPHIL # (test code = BA#) 0.06 K/mm3 0.0-0.2 N NUCLEATED RBC # (test code = NRBC#) 0.00 K/mm3 0.0-0.1 N MANUAL DIFF REQUIRED (test code = MDIFF) NO, ONLY SCAN NEEDED DIFFERENTIAL [id number] 07:54:00* Test Item Value Reference Range Interpretation Comments STAIN ACCEPTABILITY (test code = STN ACCEPTABLE) CABOT RINGS (test code = CAB) MORPHOLOGY COMMENT (test code = MOC) PLATELET ESTIMATE (test code = PLTEST) PLATELET MORPHOLOGY (test code = PLTMORPH) CBC W/AUTO [id number] 07:54:00* Test Item Value Reference Range Interpretation Comments WHITE BLOOD CELL (test code = WBC) 8.0 K/mm3 4.5-12.5 N RED BLOOD CELL (test code = RBC) 3.84 mill/mm3 3.7-5.2 N HEMOGLOBIN (test code = HGB) 9.7 gram/dL 11.5-15.5 L HEMATOCRIT (test code = HCT) 32.7 % 36.0-46.0 L MEAN CELL VOLUME (test code = MCV) 85.2 fL 80-98 N MEAN CELL HGB (test code = MCH) 25.3 picogram 27.0-33.0 L MEAN CELL HGB CONCETRATION (test code = MCHC) 29.7 gram/dL 33.0-36. 0 L RED CELL DISTRIBUTION WIDTH (test code = RDW) 16.2 % 11.6-16. 2 N RED CELL DISTRIBUTION WIDTH SD (test code = RDW-SD) 50.4 fL 37 .0-51.0 N PLATELET COUNT (test code = PLT) 232 K/mm3 150-450 N MEAN PLATELET VOLUME (test code = MPV) 9.8 fL 6.7-11.0 N NEUTROPHIL % (test code = NT%) 84.9 % 39.0-69.0 H IMMATURE GRANULOCYTE % (test code = IG%) 0.2 % 0.0-5.0 N LYMPHOCYTE % (test code = LY%) 8.2 % 25.0-55.0 L MONOCYTE % (test code = MO%) 4.1 % 0.0-10.0 N EOSINOPHIL % (test code = EO%) 1.9 % 0.0-5.0 N BASOPHIL % (test code = BA%) 0.7 % 0.0-1.0 N NUCLEATED RBC % (test code = NRBC%) 0.0 % 0-0 N NEUTROPHIL # (test code = NT#) 6.81 K/mm3 1.8-7.7 N IMMATURE GRANULOCYTE # (test code = IG#) 0.02 x10 3/uL 0-0.03 N LYMPHOCYTE # (test code = LY#) 0.66 K/mm3 1.0-5.0 L MONOCYTE # (test code = MO#) 0.33 K/mm3 0-0.8 N EOSINOPHIL # (test code = EO#) 0.15 K/mm3 0.0-0.5 N BASOPHIL # (test code = BA#) 0.06 K/mm3 0.0-0.2 N NUCLEATED RBC # (test code = NRBC#) 0.00 K/mm3 0.0-0.1 N MANUAL DIFF REQUIRED (test code = MDIFF) NO, ONLY SCAN NEEDED DIFFERENTIAL [id number] 07:54:00* Test Item Value Reference Range Interpretation Comments STAIN ACCEPTABILITY (test code = STN ACCEPTABLE) MORPHOLOGY COMMENT (test code = MOC) PLATELET ESTIMATE (test code = PLTEST) PLATELET MORPHOLOGY (test code = PLTMORPH) BASIC METABOLIC [id number] 07:54:00* Test Item Value Reference Range Interpretation Comments SODIUM (test code = NA) 133 mmol/L 136-145 L POTASSIUM (test code = K) 4.5 mmol/L 3.5-5.1 N CHLORIDE (test code = CL) 98.0 mmol/L 98-107 N CARBON DIOXIDE (test code = CO2) mmol/L 21-32 ANION GAP (test code = GAP) 10-20 GLUCOSE (test code = GLU) mg/dL 74-106 BLOOD UREA NITROGEN (test code = BUN) mg/dL 7-18 GLOMERULAR FILTRATION RATE (test code = GFR) mL/min >=60 CREATININE (test code = CREAT) mg/dL 0.55-1.02 BUN/CREATININE RATIO (test code = BUN/CREA) 10-20 CALCIUM (test code = CA) 8.0 mg/dL 8.5-10.1 L CBC W/AUTO [id number] 07:53:00* Test Item Value Reference Range Interpretation Comments WHITE BLOOD CELL (test code = WBC) 8.0 K/mm3 4.5-12.5 N RED BLOOD CELL (test code = RBC) 3.84 mill/mm3 3.7-5.2 N HEMOGLOBIN (test code = HGB) 9.7 gram/dL 11.5-15.5 L HEMATOCRIT (test code = HCT) 32.7 % 36.0-46.0 L MEAN CELL VOLUME (test code = MCV) 85.2 fL 80-98 N MEAN CELL HGB (test code = MCH) 25.3 picogram 27.0-33.0 L MEAN CELL HGB CONCETRATION (test code = MCHC) 29.7 gram/dL 33.0-36. 0 L RED CELL DISTRIBUTION WIDTH (test code = RDW) 16.2 % 11.6-16. 2 N RED CELL DISTRIBUTION WIDTH SD (test code = RDW-SD) 50.4 fL 37 .0-51.0 N PLATELET COUNT (test code = PLT) 232 K/mm3 150-450 N MEAN PLATELET VOLUME (test code = MPV) 9.8 fL 6.7-11.0 N NEUTROPHIL % (test code = NT%) 84.9 % 39.0-69.0 H IMMATURE GRANULOCYTE % (test code = IG%) 0.2 % 0.0-5.0 N LYMPHOCYTE % (test code = LY%) 8.2 % 25.0-55.0 L MONOCYTE % (test code = MO%) 4.1 % 0.0-10.0 N EOSINOPHIL % (test code = EO%) 1.9 % 0.0-5.0 N BASOPHIL % (test code = BA%) 0.7 % 0.0-1.0 N NUCLEATED RBC % (test code = NRBC%) 0.0 % 0-0 N NEUTROPHIL # (test code = NT#) 6.81 K/mm3 1.8-7.7 N IMMATURE GRANULOCYTE # (test code = IG#) 0.02 x10 3/uL 0-0.03 N LYMPHOCYTE # (test code = LY#) 0.66 K/mm3 1.0-5.0 L MONOCYTE # (test code = MO#) 0.33 K/mm3 0-0.8 N EOSINOPHIL # (test code = EO#) 0.15 K/mm3 0.0-0.5 N BASOPHIL # (test code = BA#) 0.06 K/mm3 0.0-0.2 N NUCLEATED RBC # (test code = NRBC#) 0.00 K/mm3 0.0-0.1 N MANUAL DIFF REQUIRED (test code = MDIFF) NO, ONLY SCAN NEEDED DIFFERENTIAL [id number] 07:53:00* Test Item Value Reference Range Interpretation Comments STAIN ACCEPTABILITY (test code = STN ACCEPTABLE) CABOT RINGS (test code = CAB) MORPHOLOGY COMMENT (test code = MOC) PLATELET ESTIMATE (test code = PLTEST) PLATELET MORPHOLOGY (test code = PLTMORPH) CBC W/AUTO [id number] 07:53:00* Test Item Value Reference Range Interpretation Comments WHITE BLOOD CELL (test code = WBC) 8.0 K/mm3 4.5-12.5 N RED BLOOD CELL (test code = RBC) 3.84 mill/mm3 3.7-5.2 N HEMOGLOBIN (test code = HGB) 9.7 gram/dL 11.5-15.5 L HEMATOCRIT (test code = HCT) 32.7 % 36.0-46.0 L MEAN CELL VOLUME (test code = MCV) 85.2 fL 80-98 N MEAN CELL HGB (test code = MCH) 25.3 picogram 27.0-33.0 L MEAN CELL HGB CONCETRATION (test code = MCHC) 29.7 gram/dL 33.0-36. 0 L RED CELL DISTRIBUTION WIDTH (test code = RDW) 16.2 % 11.6-16. 2 N RED CELL DISTRIBUTION WIDTH SD (test code = RDW-SD) 50.4 fL 37 .0-51.0 N PLATELET COUNT (test code = PLT) 232 K/mm3 150-450 N MEAN PLATELET VOLUME (test code = MPV) 9.8 fL 6.7-11.0 N NEUTROPHIL % (test code = NT%) 84.9 % 39.0-69.0 H IMMATURE GRANULOCYTE % (test code = IG%) 0.2 % 0.0-5.0 N LYMPHOCYTE % (test code = LY%) 8.2 % 25.0-55.0 L MONOCYTE % (test code = MO%) 4.1 % 0.0-10.0 N EOSINOPHIL % (test code = EO%) 1.9 % 0.0-5.0 N BASOPHIL % (test code = BA%) 0.7 % 0.0-1.0 N NUCLEATED RBC % (test code = NRBC%) 0.0 % 0-0 N NEUTROPHIL # (test code = NT#) 6.81 K/mm3 1.8-7.7 N IMMATURE GRANULOCYTE # (test code = IG#) 0.02 x10 3/uL 0-0.03 N LYMPHOCYTE # (test code = LY#) 0.66 K/mm3 1.0-5.0 L MONOCYTE # (test code = MO#) 0.33 K/mm3 0-0.8 N EOSINOPHIL # (test code = EO#) 0.15 K/mm3 0.0-0.5 N BASOPHIL # (test code = BA#) 0.06 K/mm3 0.0-0.2 N NUCLEATED RBC # (test code = NRBC#) 0.00 K/mm3 0.0-0.1 N MANUAL DIFF REQUIRED (test code = MDIFF) NO, ONLY SCAN NEEDED DIFFERENTIAL [id number] 07:53:00* Test Item Value Reference Range Interpretation Comments STAIN ACCEPTABILITY (test code = STN ACCEPTABLE) CABOT RINGS (test code = CAB) MORPHOLOGY COMMENT (test code = MOC) PLATELET ESTIMATE (test code = PLTEST) PLATELET MORPHOLOGY (test code = PLTMORPH) [id number] 05:02:00* Test Item Value Reference Range Interpretation Comments GLUBED (test code = GLUBED) 139 mg/dL 74-106 H Performed by certified call center operator at [facility] [id number] 20:59:00* Test Item Value Reference Range Interpretation Comments GLUBED (test code = GLUBED) 90 mg/dL 74-106 N Performed by certified call center operator at [facility] [id number] 17:54:00* Test Item Value Reference Range Interpretation Comments GLUBED (test code = GLUBED) 175 mg/dL 74-106 H Performed by certified call center operator at [facility] [id number] 11:49:00* Test Item Value Reference Range Interpretation Comments GLUBED (test code = GLUBED) 189 mg/dL 74-106 H Performed by certified call center operator at [facility] CBC W/AUTO [id number] 07:29:00* Test Item Value Reference Range Interpretation Comments WHITE BLOOD CELL (test code = WBC) 6.7 K/mm3 4.5-12.5 N RED BLOOD CELL (test code = RBC) 4.28 mill/mm3 3.7-5.2 N HEMOGLOBIN (test code = HGB) 10.7 gram/dL 11.5-15.5 L HEMATOCRIT (test code = HCT) 37.7 % 36.0-46.0 N MEAN CELL VOLUME (test code = MCV) 88.1 fL 80-98 N MEAN CELL HGB (test code = MCH) 25.0 picogram 27.0-33.0 L MEAN CELL HGB CONCETRATION (test code = MCHC) 28.4 gram/dL 33.0-36. 0 L RED CELL DISTRIBUTION WIDTH (test code = RDW) 16.3 % 11.6-16. 2 H RED CELL DISTRIBUTION WIDTH SD (test code = RDW-SD) 52.7 fL 37 .0-51.0 H PLATELET COUNT (test code = PLT) 271 K/mm3 150-450 N MEAN PLATELET VOLUME (test code = MPV) 9.5 fL 6.7-11.0 N NEUTROPHIL % (test code = NT%) 79.0 % 39.0-69.0 H IMMATURE GRANULOCYTE % (test code = IG%) 0.3 % 0.0-5.0 N LYMPHOCYTE % (test code = LY%) 10.3 % 25.0-55.0 L MONOCYTE % (test code = MO%) 5.1 % 0.0-10.0 N EOSINOPHIL % (test code = EO%) 4.3 % 0.0-5.0 N BASOPHIL % (test code = BA%) 1.0 % 0.0-1.0 N NUCLEATED RBC % (test code = NRBC%) 0.0 % 0-0 N NEUTROPHIL # (test code = NT#) 5.27 K/mm3 1.8-7.7 N IMMATURE GRANULOCYTE # (test code = IG#) 0.02 x10 3/uL 0-0.03 N LYMPHOCYTE # (test code = LY#) 0.69 K/mm3 1.0-5.0 L MONOCYTE # (test code = MO#) 0.34 K/mm3 0-0.8 N EOSINOPHIL # (test code = EO#) 0.29 K/mm3 0.0-0.5 N BASOPHIL # (test code = BA#) 0.07 K/mm3 0.0-0.2 N NUCLEATED RBC # (test code = NRBC#) 0.00 K/mm3 0.0-0.1 N MANUAL DIFF REQUIRED (test code = MDIFF) NO, ONLY SCAN NEEDED DIFFERENTIAL [id number] 07:29:00* Test Item Value Reference Range Interpretation Comments STAIN ACCEPTABILITY (test code = STN ACCEPTABLE) STAIN ACCEPTABLE MORPHOLOGY COMMENT (test code = MOC) NORMAL PLATELET ESTIMATE (test code = PLTEST) ADEQUATE PLATELET MORPHOLOGY (test code = PLTMORPH) NORMAL B-TYPE NATRIURETIC [id number] 07:23:00* Test Item Value Reference Range Interpretation Comments B-TYPE NATRIURETIC PEPTIDE (test code = BNP) 3025.99 pgram/mL 0-100 H BASIC METABOLIC [id number] 07:18:00* Test Item Value Reference Range Interpretation Comments SODIUM (test code = NA) 134 mmol/L 136-145 L POTASSIUM (test code = K) 4.6 mmol/L 3.5-5.1 N CHLORIDE (test code = CL) 99.0 mmol/L 98-107 N CARBON DIOXIDE (test code = CO2) 29.0 mmol/L 21-32 N ANION GAP (test code = GAP) 10.6 10-20 N GLUCOSE (test code = GLU) 165 mg/dL 74-106 H BLOOD UREA NITROGEN (test code = BUN) 23 mg/dL 7-18 H GLOMERULAR FILTRATION RATE (test code = GFR) 8 mL/min >=60 Estimated GFR by using Modified MDRD formula.Chronic kidney disease is defined as either kidney damageor GFR <60 mL/min/1.73 m2 for >3 months. CREATININE (test code = CREAT) 5.20 mg/dL 0.55-1.02 H Note change in reference range due to change in reagent. BUN/CREATININE RATIO (test code = BUN/CREA) 4.4 10-20 L CALCIUM (test code = CA) 8.5 mg/dL 8.5-10.1 N [id number] 07:18:00* Test Item Value Reference Range Interpretation Comments PHOSPHORUS (test code = PHOS) 3.2 mg/dL 2.5-4.9 N [id number] 07:18:00* Test Item Value Reference Range Interpretation Comments MAGNESIUM (test code = MAG) 1.9 mg/dL 1.8-2.4 N BASIC METABOLIC [id number] 07:10:00* Test Item Value Reference Range Interpretation Comments SODIUM (test code = NA) 134 mmol/L 136-145 L POTASSIUM (test code = K) 4.6 mmol/L 3.5-5.1 N CHLORIDE (test code = CL) 99.0 mmol/L 98-107 N CARBON DIOXIDE (test code = CO2) mmol/L 21-32 ANION GAP (test code = GAP) 10-20 GLUCOSE (test code = GLU) mg/dL 74-106 BLOOD UREA NITROGEN (test code = BUN) mg/dL 7-18 GLOMERULAR FILTRATION RATE (test code = GFR) mL/min >=60 CREATININE (test code = CREAT) mg/dL 0.55-1.02 BUN/CREATININE RATIO (test code = BUN/CREA) 10-20 CALCIUM (test code = CA) mg/dL 8.5-10.1 [id number] 07:10:00* Test Item Value Reference Range Interpretation Comments PHOSPHORUS (test code = PHOS) mg/dL 2.5-4.9 [id number] 07:10:00* Test Item Value Reference Range Interpretation Comments MAGNESIUM (test code = MAG) mg/dL 1.8-2.4 PROTHROMBIN [id number] 07:00:00* Test Item Value Reference Range Interpretation Comments PROTHROMBIN TIME PATIENT (test code = PTP) 37.7 seconds 9.0-14.0 H INTERNATIONAL NORMAL RATIO (test code = INR) 3.2 0.8-1.2 H The therapeutic range for oral anticoagulant therapy [facility] is an international normalized ratio (INR)of between 2.0 and 3.0. The recommended therapeutic INRrange for various clinical situations is listed below: Clinical Situation INR range Pulmonary e mbolism treatment (2.0-3.0)Venous thrombosis treatmentVenous thrombosis prophylaxis (high risk surgery)Prevention of systemic embolism from: Acute myocardial infarction Valvular heart disease Atrial fibrillation Mechanical prosthetic heart valves (2.5-3.5) IS PATIENT ON ANTICOAGULANTS? YLIST ANTICOAGULANTS COUMADINCBC W/AUTO DIFF 2018-12-20 06:54:00* Test Item Value Reference Range Interpretation Comments WHITE BLOOD CELL (test code = WBC) 6.7 K/mm3 4.5-12.5 N RED BLOOD CELL (test code = RBC) 4.28 mill/mm3 3.7-5.2 N HEMOGLOBIN (test code = HGB) 10.7 gram/dL 11.5-15.5 L HEMATOCRIT (test code = HCT) 37.7 % 36.0-46.0 N MEAN CELL VOLUME (test code = MCV) 88.1 fL 80-98 N MEAN CELL HGB (test code = MCH) 25.0 picogram 27.0-33.0 L MEAN CELL HGB CONCETRATION (test code = MCHC) 28.4 gram/dL 33.0-36. 0 L RED CELL DISTRIBUTION WIDTH (test code = RDW) 16.3 % 11.6-16. 2 H RED CELL DISTRIBUTION WIDTH SD (test code = RDW-SD) 52.7 fL 37 .0-51.0 H PLATELET COUNT (test code = PLT) 271 K/mm3 150-450 N MEAN PLATELET VOLUME (test code = MPV) 9.5 fL 6.7-11.0 N NEUTROPHIL % (test code = NT%) 79.0 % 39.0-69.0 H IMMATURE GRANULOCYTE % (test code = IG%) 0.3 % 0.0-5.0 N LYMPHOCYTE % (test code = LY%) 10.3 % 25.0-55.0 L MONOCYTE % (test code = MO%) 5.1 % 0.0-10.0 N EOSINOPHIL % (test code = EO%) 4.3 % 0.0-5.0 N BASOPHIL % (test code = BA%) 1.0 % 0.0-1.0 N NUCLEATED RBC % (test code = NRBC%) 0.0 % 0-0 N NEUTROPHIL # (test code = NT#) 5.27 K/mm3 1.8-7.7 N IMMATURE GRANULOCYTE # (test code = IG#) 0.02 x10 3/uL 0-0.03 N LYMPHOCYTE # (test code = LY#) 0.69 K/mm3 1.0-5.0 L MONOCYTE # (test code = MO#) 0.34 K/mm3 0-0.8 N EOSINOPHIL # (test code = EO#) 0.29 K/mm3 0.0-0.5 N BASOPHIL # (test code = BA#) 0.07 K/mm3 0.0-0.2 N NUCLEATED RBC # (test code = NRBC#) 0.00 K/mm3 0.0-0.1 N MANUAL DIFF REQUIRED (test code = MDIFF) NO, ONLY SCAN NEEDED DIFFERENTIAL [id number] 06:54:00* Test Item Value Reference Range Interpretation Comments STAIN ACCEPTABILITY (test code = STN ACCEPTABLE) CABOT RINGS (test code = CAB) MORPHOLOGY COMMENT (test code = MOC) PLATELET ESTIMATE (test code = PLTEST) PLATELET MORPHOLOGY (test code = PLTMORPH) CBC W/AUTO [id number] 06:54:00* Test Item Value Reference Range Interpretation Comments WHITE BLOOD CELL (test code = WBC) 6.7 K/mm3 4.5-12.5 N RED BLOOD CELL (test code = RBC) 4.28 mill/mm3 3.7-5.2 N HEMOGLOBIN (test code = HGB) 10.7 gram/dL 11.5-15.5 L HEMATOCRIT (test code = HCT) 37.7 % 36.0-46.0 N MEAN CELL VOLUME (test code = MCV) 88.1 fL 80-98 N MEAN CELL HGB (test code = MCH) 25.0 picogram 27.0-33.0 L MEAN CELL HGB CONCETRATION (test code = MCHC) 28.4 gram/dL 33.0-36. 0 L RED CELL DISTRIBUTION WIDTH (test code = RDW) 16.3 % 11.6-16. 2 H RED CELL DISTRIBUTION WIDTH SD (test code = RDW-SD) 52.7 fL 37 .0-51.0 H PLATELET COUNT (test code = PLT) 271 K/mm3 150-450 N MEAN PLATELET VOLUME (test code = MPV) 9.5 fL 6.7-11.0 N NEUTROPHIL % (test code = NT%) 79.0 % 39.0-69.0 H IMMATURE GRANULOCYTE % (test code = IG%) 0.3 % 0.0-5.0 N LYMPHOCYTE % (test code = LY%) 10.3 % 25.0-55.0 L MONOCYTE % (test code = MO%) 5.1 % 0.0-10.0 N EOSINOPHIL % (test code = EO%) 4.3 % 0.0-5.0 N BASOPHIL % (test code = BA%) 1.0 % 0.0-1.0 N NUCLEATED RBC % (test code = NRBC%) 0.0 % 0-0 N NEUTROPHIL # (test code = NT#) 5.27 K/mm3 1.8-7.7 N IMMATURE GRANULOCYTE # (test code = IG#) 0.02 x10 3/uL 0-0.03 N LYMPHOCYTE # (test code = LY#) 0.69 K/mm3 1.0-5.0 L MONOCYTE # (test code = MO#) 0.34 K/mm3 0-0.8 N EOSINOPHIL # (test code = EO#) 0.29 K/mm3 0.0-0.5 N BASOPHIL # (test code = BA#) 0.07 K/mm3 0.0-0.2 N NUCLEATED RBC # (test code = NRBC#) 0.00 K/mm3 0.0-0.1 N MANUAL DIFF REQUIRED (test code = MDIFF) NO, ONLY SCAN NEEDED DIFFERENTIAL [id number] 06:54:00* Test Item Value Reference Range Interpretation Comments STAIN ACCEPTABILITY (test code = STN ACCEPTABLE) CABOT RINGS (test code = CAB) MORPHOLOGY COMMENT (test code = MOC) PLATELET ESTIMATE (test code = PLTEST) PLATELET MORPHOLOGY (test code = PLTMORPH) CBC W/AUTO [id number] 06:54:00* Test Item Value Reference Range Interpretation Comments WHITE BLOOD CELL (test code = WBC) 6.7 K/mm3 4.5-12.5 N RED BLOOD CELL (test code = RBC) 4.28 mill/mm3 3.7-5.2 N HEMOGLOBIN (test code = HGB) 10.7 gram/dL 11.5-15.5 L HEMATOCRIT (test code = HCT) 37.7 % 36.0-46.0 N MEAN CELL VOLUME (test code = MCV) 88.1 fL 80-98 N MEAN CELL HGB (test code = MCH) 25.0 picogram 27.0-33.0 L MEAN CELL HGB CONCETRATION (test code = MCHC) 28.4 gram/dL 33.0-36. 0 L RED CELL DISTRIBUTION WIDTH (test code = RDW) 16.3 % 11.6-16. 2 H RED CELL DISTRIBUTION WIDTH SD (test code = RDW-SD) 52.7 fL 37 .0-51.0 H PLATELET COUNT (test code = PLT) 271 K/mm3 150-450 N MEAN PLATELET VOLUME (test code = MPV) 9.5 fL 6.7-11.0 N NEUTROPHIL % (test code = NT%) 79.0 % 39.0-69.0 H IMMATURE GRANULOCYTE % (test code = IG%) 0.3 % 0.0-5.0 N LYMPHOCYTE % (test code = LY%) 10.3 % 25.0-55.0 L MONOCYTE % (test code = MO%) 5.1 % 0.0-10.0 N EOSINOPHIL % (test code = EO%) 4.3 % 0.0-5.0 N BASOPHIL % (test code = BA%) 1.0 % 0.0-1.0 N NUCLEATED RBC % (test code = NRBC%) 0.0 % 0-0 N NEUTROPHIL # (test code = NT#) 5.27 K/mm3 1.8-7.7 N IMMATURE GRANULOCYTE # (test code = IG#) 0.02 x10 3/uL 0-0.03 N LYMPHOCYTE # (test code = LY#) 0.69 K/mm3 1.0-5.0 L MONOCYTE # (test code = MO#) 0.34 K/mm3 0-0.8 N EOSINOPHIL # (test code = EO#) 0.29 K/mm3 0.0-0.5 N BASOPHIL # (test code = BA#) 0.07 K/mm3 0.0-0.2 N NUCLEATED RBC # (test code = NRBC#) 0.00 K/mm3 0.0-0.1 N MANUAL DIFF REQUIRED (test code = MDIFF) NO, ONLY SCAN NEEDED DIFFERENTIAL [id number] 06:54:00* Test Item Value Reference Range Interpretation Comments STAIN ACCEPTABILITY (test code = STN ACCEPTABLE) MORPHOLOGY COMMENT (test code = MOC) PLATELET ESTIMATE (test code = PLTEST) PLATELET MORPHOLOGY (test code = PLTMORPH) CBC W/AUTO [id number] 06:54:00* Test Item Value Reference Range Interpretation Comments WHITE BLOOD CELL (test code = WBC) 6.7 K/mm3 4.5-12.5 N RED BLOOD CELL (test code = RBC) 4.28 mill/mm3 3.7-5.2 N HEMOGLOBIN (test code = HGB) 10.7 gram/dL 11.5-15.5 L HEMATOCRIT (test code = HCT) 37.7 % 36.0-46.0 N MEAN CELL VOLUME (test code = MCV) 88.1 fL 80-98 N MEAN CELL HGB (test code = MCH) 25.0 picogram 27.0-33.0 L MEAN CELL HGB CONCETRATION (test code = MCHC) 28.4 gram/dL 33.0-36. 0 L RED CELL DISTRIBUTION WIDTH (test code = RDW) 16.3 % 11.6-16. 2 H RED CELL DISTRIBUTION WIDTH SD (test code = RDW-SD) 52.7 fL 37 .0-51.0 H PLATELET COUNT (test code = PLT) 271 K/mm3 150-450 N MEAN PLATELET VOLUME (test code = MPV) 9.5 fL 6.7-11.0 N NEUTROPHIL % (test code = NT%) 79.0 % 39.0-69.0 H IMMATURE GRANULOCYTE % (test code = IG%) 0.3 % 0.0-5.0 N LYMPHOCYTE % (test code = LY%) 10.3 % 25.0-55.0 L MONOCYTE % (test code = MO%) 5.1 % 0.0-10.0 N EOSINOPHIL % (test code = EO%) 4.3 % 0.0-5.0 N BASOPHIL % (test code = BA%) 1.0 % 0.0-1.0 N NUCLEATED RBC % (test code = NRBC%) 0.0 % 0-0 N NEUTROPHIL # (test code = NT#) 5.27 K/mm3 1.8-7.7 N IMMATURE GRANULOCYTE # (test code = IG#) 0.02 x10 3/uL 0-0.03 N LYMPHOCYTE # (test code = LY#) 0.69 K/mm3 1.0-5.0 L MONOCYTE # (test code = MO#) 0.34 K/mm3 0-0.8 N EOSINOPHIL # (test code = EO#) 0.29 K/mm3 0.0-0.5 N BASOPHIL # (test code = BA#) 0.07 K/mm3 0.0-0.2 N NUCLEATED RBC # (test code = NRBC#) 0.00 K/mm3 0.0-0.1 N MANUAL DIFF REQUIRED (test code = MDIFF) NO, ONLY SCAN NEEDED DIFFERENTIAL [id number] 06:54:00* Test Item Value Reference Range Interpretation Comments STAIN ACCEPTABILITY (test code = STN ACCEPTABLE) CABOT RINGS (test code = CAB) MORPHOLOGY COMMENT (test code = MOC) PLATELET ESTIMATE (test code = PLTEST) PLATELET MORPHOLOGY (test code = PLTMORPH) CBC W/AUTO [id number] 06:52:00* Test Item Value Reference Range Interpretation Comments WHITE BLOOD CELL (test code = WBC) K/mm3 4.5-12.5 RED BLOOD CELL (test code = RBC) mill/mm3 3.7-5.2 HEMOGLOBIN (test code = HGB) gram/dL 11.5-15.5 HEMATOCRIT (test code = HCT) 37.7 % 36.0-46.0 N MEAN CELL VOLUME (test code = MCV) fL 80-98 MEAN CELL HGB (test code = MCH) picogram 27.0-33.0 MEAN CELL HGB CONCETRATION (test code = MCHC) gram/dL 33.0-36. 0 RED CELL DISTRIBUTION WIDTH (test code = RDW) % 11.6-16. 2 RED CELL DISTRIBUTION WIDTH SD (test code = RDW-SD) fL 37 .0-51.0 PLATELET COUNT (test code = PLT) K/mm3 150-450 MEAN PLATELET VOLUME (test code = MPV) fL 6.7-11.0 NEUTROPHIL % (test code = NT%) % 39.0-69.0 IMMATURE GRANULOCYTE % (test code = IG%) % 0.0-5.0 LYMPHOCYTE % (test code = LY%) % 25.0-55.0 MONOCYTE % (test code = MO%) % 0.0-10.0 EOSINOPHIL % (test code = EO%) % 0.0-5.0 BASOPHIL % (test code = BA%) % 0.0-1.0 NEUTROPHIL # (test code = NT#) K/mm3 1.8-7.7 LYMPHOCYTE # (test code = LY#) K/mm3 1.0-5.0 MONOCYTE # (test code = MO#) K/mm3 0-0.8 EOSINOPHIL # (test code = EO#) K/mm3 0.0-0.5 BASOPHIL # (test code = BA#) K/mm3 0.0-0.2 [id number] 05:00:00* Test Item Value Reference Range Interpretation Comments GLUBED (test code = GLUBED) 123 mg/dL 74-106 H Performed by certified call center operator at [facility] [id number] 20:49:00* Test Item Value Reference Range Interpretation Comments GLUBED (test code = GLUBED) 122 mg/dL 74-106 H Performed by certified call center operator at [facility] [id number] 17:23:00* Test Item Value Reference Range Interpretation Comments GLUBED (test code = GLUBED) 124 mg/dL 74-106 H Performed by certified call center operator at [facility] [id number] 11:31:00* Test Item Value Reference Range Interpretation Comments GLUBED (test code = GLUBED) 209 mg/dL 74-106 H Performed by certified call center operator at [facility] CBC W/AUTO [id number] 08:18:00* Test Item Value Reference Range Interpretation Comments WHITE BLOOD CELL (test code = WBC) 7.4 K/mm3 4.5-12.5 N RED BLOOD CELL (test code = RBC) 4.08 mill/mm3 3.7-5.2 N HEMOGLOBIN (test code = HGB) 10.2 gram/dL 11.5-15.5 L HEMATOCRIT (test code = HCT) 36.0 % 36.0-46.0 N MEAN CELL VOLUME (test code = MCV) 88.2 fL 80-98 N MEAN CELL HGB (test code = MCH) 25.0 picogram 27.0-33.0 L MEAN CELL HGB CONCETRATION (test code = MCHC) 28.3 gram/dL 33.0-36. 0 L RED CELL DISTRIBUTION WIDTH (test code = RDW) 16.4 % 11.6-16. 2 H RED CELL DISTRIBUTION WIDTH SD (test code = RDW-SD) 53.1 fL 37 .0-51.0 H PLATELET COUNT (test code = PLT) 259 K/mm3 150-450 N MEAN PLATELET VOLUME (test code = MPV) 9.9 fL 6.7-11.0 N NEUTROPHIL % (test code = NT%) 73.1 % 39.0-69.0 H IMMATURE GRANULOCYTE % (test code = IG%) 0.4 % 0.0-5.0 N LYMPHOCYTE % (test code = LY%) 16.9 % 25.0-55.0 L MONOCYTE % (test code = MO%) 5.3 % 0.0-10.0 N EOSINOPHIL % (test code = EO%) 3.2 % 0.0-5.0 N BASOPHIL % (test code = BA%) 1.1 % 0.0-1.0 H NUCLEATED RBC % (test code = NRBC%) 0.0 % 0-0 N NEUTROPHIL # (test code = NT#) 5.42 K/mm3 1.8-7.7 N IMMATURE GRANULOCYTE # (test code = IG#) 0.03 x10 3/uL 0-0.03 N LYMPHOCYTE # (test code = LY#) 1.25 K/mm3 1.0-5.0 N MONOCYTE # (test code = MO#) 0.39 K/mm3 0-0.8 N EOSINOPHIL # (test code = EO#) 0.24 K/mm3 0.0-0.5 N BASOPHIL # (test code = BA#) 0.08 K/mm3 0.0-0.2 N NUCLEATED RBC # (test code = NRBC#) 0.00 K/mm3 0.0-0.1 N MANUAL DIFF REQUIRED (test code = MDIFF) NO, ONLY SCAN NEEDED DIFFERENTIAL [id number] 08:18:00* Test Item Value Reference Range Interpretation Comments STAIN ACCEPTABILITY (test code = STN ACCEPTABLE) STAIN ACCEPTABLE HYPOCHROMIA (test code = HYPO) 1+ ANISOCYTOSIS (test code = ANISO) 1+ PLATELET ESTIMATE (test code = PLTEST) ADEQUATE PLATELET MORPHOLOGY (test code = PLTMORPH) NORMAL B-TYPE NATRIURETIC [id number] 07:13:00* Test Item Value Reference Range Interpretation Comments B-TYPE NATRIURETIC PEPTIDE (test code = BNP) 3421.57 pgram/mL 0-100 H BASIC METABOLIC [id number] 07:11:00* Test Item Value Reference Range Interpretation Comments SODIUM (test code = NA) 134 mmol/L 136-145 L POTASSIUM (test code = K) 5.2 mmol/L 3.5-5.1 H CHLORIDE (test code = CL) 98.0 mmol/L 98-107 N CARBON DIOXIDE (test code = CO2) 25.0 mmol/L 21-32 N ANION GAP (test code = GAP) 16.2 10-20 N GLUCOSE (test code = GLU) 116 mg/dL 74-106 H BLOOD UREA NITROGEN (test code = BUN) 43 mg/dL 7-18 H GLOMERULAR FILTRATION RATE (test code = GFR) 6 mL/min >=60 Estimated GFR by using Modified MDRD formula.Chronic kidney disease is defined as either kidney damageor GFR <60 mL/min/1.73 m2 for >3 months. CREATININE (test code = CREAT) 7.20 mg/dL 0.55-1.02 H Note change in reference range due to change in reagent. BUN/CREATININE RATIO (test code = BUN/CREA) 6.0 10-20 L CALCIUM (test code = CA) 8.5 mg/dL 8.5-10.1 N [id number] 07:11:00* Test Item Value Reference Range Interpretation Comments MAGNESIUM (test code = MAG) 2.0 mg/dL 1.8-2.4 N BASIC METABOLIC [id number] 07:01:00* Test Item Value Reference Range Interpretation Comments SODIUM (test code = NA) 134 mmol/L 136-145 L POTASSIUM (test code = K) 5.2 mmol/L 3.5-5.1 H CHLORIDE (test code = CL) 98.0 mmol/L 98-107 N CARBON DIOXIDE (test code = CO2) mmol/L 21-32 ANION GAP (test code = GAP) 10-20 GLUCOSE (test code = GLU) mg/dL 74-106 BLOOD UREA NITROGEN (test code = BUN) mg/dL 7-18 GLOMERULAR FILTRATION RATE (test code = GFR) mL/min >=60 CREATININE (test code = CREAT) mg/dL 0.55-1.02 BUN/CREATININE RATIO (test code = BUN/CREA) 10-20 CALCIUM (test code = CA) mg/dL 8.5-10.1 [id number] 07:01:00* Test Item Value Reference Range Interpretation Comments MAGNESIUM (test code = MAG) mg/dL 1.8-2.4 PROTHROMBIN [id number] 06:59:00* Test Item Value Reference Range Interpretation Comments PROTHROMBIN TIME PATIENT (test code = PTP) 28.3 seconds 9.0-14.0 H INTERNATIONAL NORMAL RATIO (test code = INR) 2.4 0.8-1.2 H The therapeutic range for oral anticoagulant therapy formost indications is an international normalized ratio (INR)of between 2.0 and 3.0. The recommended therapeutic INRrange for various clinical situations is listed below: Clinical Situation INR range Pulmonary e mbolism treatment (2.0-3.0)Venous thrombosis treatmentVenous thrombosis prophylaxis (high risk surgery)Prevention of systemic embolism from: Acute myocardial infarction Valvular heart disease Atrial fibrillation Mechanical prosthetic heart valves (2.5-3.5) IS PATIENT ON ANTICOAGULANTS? YLIST ANTICOAGULANTS COUMADINCBC W/AUTO DIFF 2018-12-19 06:45:00* Test Item Value Reference Range Interpretation Comments WHITE BLOOD CELL (test code = WBC) 7.4 K/mm3 4.5-12.5 N RED BLOOD CELL (test code = RBC) 4.08 mill/mm3 3.7-5.2 N HEMOGLOBIN (test code = HGB) 10.2 gram/dL 11.5-15.5 L HEMATOCRIT (test code = HCT) 36.0 % 36.0-46.0 N MEAN CELL VOLUME (test code = MCV) 88.2 fL 80-98 N MEAN CELL HGB (test code = MCH) 25.0 picogram 27.0-33.0 L MEAN CELL HGB CONCETRATION (test code = MCHC) 28.3 gram/dL 33.0-36. 0 L RED CELL DISTRIBUTION WIDTH (test code = RDW) 16.4 % 11.6-16. 2 H RED CELL DISTRIBUTION WIDTH SD (test code = RDW-SD) 53.1 fL 37 .0-51.0 H PLATELET COUNT (test code = PLT) 259 K/mm3 150-450 N MEAN PLATELET VOLUME (test code = MPV) 9.9 fL 6.7-11.0 N NEUTROPHIL % (test code = NT%) 73.1 % 39.0-69.0 H IMMATURE GRANULOCYTE % (test code = IG%) 0.4 % 0.0-5.0 N LYMPHOCYTE % (test code = LY%) 16.9 % 25.0-55.0 L MONOCYTE % (test code = MO%) 5.3 % 0.0-10.0 N EOSINOPHIL % (test code = EO%) 3.2 % 0.0-5.0 N BASOPHIL % (test code = BA%) 1.1 % 0.0-1.0 H NUCLEATED RBC % (test code = NRBC%) 0.0 % 0-0 N NEUTROPHIL # (test code = NT#) 5.42 K/mm3 1.8-7.7 N IMMATURE GRANULOCYTE # (test code = IG#) 0.03 x10 3/uL 0-0.03 N LYMPHOCYTE # (test code = LY#) 1.25 K/mm3 1.0-5.0 N MONOCYTE # (test code = MO#) 0.39 K/mm3 0-0.8 N EOSINOPHIL # (test code = EO#) 0.24 K/mm3 0.0-0.5 N BASOPHIL # (test code = BA#) 0.08 K/mm3 0.0-0.2 N NUCLEATED RBC # (test code = NRBC#) 0.00 K/mm3 0.0-0.1 N MANUAL DIFF REQUIRED (test code = MDIFF) NO, ONLY SCAN NEEDED DIFFERENTIAL [id number] 06:45:00* Test Item Value Reference Range Interpretation Comments STAIN ACCEPTABILITY (test code = STN ACCEPTABLE) CABOT RINGS (test code = CAB) MORPHOLOGY COMMENT (test code = MOC) PLATELET ESTIMATE (test code = PLTEST) PLATELET MORPHOLOGY (test code = PLTMORPH) CBC W/AUTO [id number] 06:45:00* Test Item Value Reference Range Interpretation Comments WHITE BLOOD CELL (test code = WBC) 7.4 K/mm3 4.5-12.5 N RED BLOOD CELL (test code = RBC) 4.08 mill/mm3 3.7-5.2 N HEMOGLOBIN (test code = HGB) 10.2 gram/dL 11.5-15.5 L HEMATOCRIT (test code = HCT) 36.0 % 36.0-46.0 N MEAN CELL VOLUME (test code = MCV) 88.2 fL 80-98 N MEAN CELL HGB (test code = MCH) 25.0 picogram 27.0-33.0 L MEAN CELL HGB CONCETRATION (test code = MCHC) 28.3 gram/dL 33.0-36. 0 L RED CELL DISTRIBUTION WIDTH (test code = RDW) 16.4 % 11.6-16. 2 H RED CELL DISTRIBUTION WIDTH SD (test code = RDW-SD) 53.1 fL 37 .0-51.0 H PLATELET COUNT (test code = PLT) 259 K/mm3 150-450 N MEAN PLATELET VOLUME (test code = MPV) 9.9 fL 6.7-11.0 N NEUTROPHIL % (test code = NT%) 73.1 % 39.0-69.0 H IMMATURE GRANULOCYTE % (test code = IG%) 0.4 % 0.0-5.0 N LYMPHOCYTE % (test code = LY%) 16.9 % 25.0-55.0 L MONOCYTE % (test code = MO%) 5.3 % 0.0-10.0 N EOSINOPHIL % (test code = EO%) 3.2 % 0.0-5.0 N BASOPHIL % (test code = BA%) 1.1 % 0.0-1.0 H NUCLEATED RBC % (test code = NRBC%) 0.0 % 0-0 N NEUTROPHIL # (test code = NT#) 5.42 K/mm3 1.8-7.7 N IMMATURE GRANULOCYTE # (test code = IG#) 0.03 x10 3/uL 0-0.03 N LYMPHOCYTE # (test code = LY#) 1.25 K/mm3 1.0-5.0 N MONOCYTE # (test code = MO#) 0.39 K/mm3 0-0.8 N EOSINOPHIL # (test code = EO#) 0.24 K/mm3 0.0-0.5 N BASOPHIL # (test code = BA#) 0.08 K/mm3 0.0-0.2 N NUCLEATED RBC # (test code = NRBC#) 0.00 K/mm3 0.0-0.1 N MANUAL DIFF REQUIRED (test code = MDIFF) NO, ONLY SCAN NEEDED DIFFERENTIAL [id number] 06:45:00* Test Item Value Reference Range Interpretation Comments STAIN ACCEPTABILITY (test code = STN ACCEPTABLE) CABOT RINGS (test code = CAB) MORPHOLOGY COMMENT (test code = MOC) PLATELET ESTIMATE (test code = PLTEST) PLATELET MORPHOLOGY (test code = PLTMORPH) CBC W/AUTO [id number] 06:45:00* Test Item Value Reference Range Interpretation Comments WHITE BLOOD CELL (test code = WBC) 7.4 K/mm3 4.5-12.5 N RED BLOOD CELL (test code = RBC) 4.08 mill/mm3 3.7-5.2 N HEMOGLOBIN (test code = HGB) 10.2 gram/dL 11.5-15.5 L HEMATOCRIT (test code = HCT) 36.0 % 36.0-46.0 N MEAN CELL VOLUME (test code = MCV) 88.2 fL 80-98 N MEAN CELL HGB (test code = MCH) 25.0 picogram 27.0-33.0 L MEAN CELL HGB CONCETRATION (test code = MCHC) 28.3 gram/dL 33.0-36. 0 L RED CELL DISTRIBUTION WIDTH (test code = RDW) 16.4 % 11.6-16. 2 H RED CELL DISTRIBUTION WIDTH SD (test code = RDW-SD) 53.1 fL 37 .0-51.0 H PLATELET COUNT (test code = PLT) 259 K/mm3 150-450 N MEAN PLATELET VOLUME (test code = MPV) 9.9 fL 6.7-11.0 N NEUTROPHIL % (test code = NT%) 73.1 % 39.0-69.0 H IMMATURE GRANULOCYTE % (test code = IG%) 0.4 % 0.0-5.0 N LYMPHOCYTE % (test code = LY%) 16.9 % 25.0-55.0 L MONOCYTE % (test code = MO%) 5.3 % 0.0-10.0 N EOSINOPHIL % (test code = EO%) 3.2 % 0.0-5.0 N BASOPHIL % (test code = BA%) 1.1 % 0.0-1.0 H NUCLEATED RBC % (test code = NRBC%) 0.0 % 0-0 N NEUTROPHIL # (test code = NT#) 5.42 K/mm3 1.8-7.7 N IMMATURE GRANULOCYTE # (test code = IG#) 0.03 x10 3/uL 0-0.03 N LYMPHOCYTE # (test code = LY#) 1.25 K/mm3 1.0-5.0 N MONOCYTE # (test code = MO#) 0.39 K/mm3 0-0.8 N EOSINOPHIL # (test code = EO#) 0.24 K/mm3 0.0-0.5 N BASOPHIL # (test code = BA#) 0.08 K/mm3 0.0-0.2 N NUCLEATED RBC # (test code = NRBC#) 0.00 K/mm3 0.0-0.1 N MANUAL DIFF REQUIRED (test code = MDIFF) NO, ONLY SCAN NEEDED DIFFERENTIAL [id number] 06:45:00* Test Item Value Reference Range Interpretation Comments STAIN ACCEPTABILITY (test code = STN ACCEPTABLE) MORPHOLOGY COMMENT (test code = MOC) PLATELET ESTIMATE (test code = PLTEST) PLATELET MORPHOLOGY (test code = PLTMORPH) CBC W/AUTO [id number] 06:45:00* Test Item Value Reference Range Interpretation Comments WHITE BLOOD CELL (test code = WBC) 7.4 K/mm3 4.5-12.5 N RED BLOOD CELL (test code = RBC) 4.08 mill/mm3 3.7-5.2 N HEMOGLOBIN (test code = HGB) 10.2 gram/dL 11.5-15.5 L HEMATOCRIT (test code = HCT) 36.0 % 36.0-46.0 N MEAN CELL VOLUME (test code = MCV) 88.2 fL 80-98 N MEAN CELL HGB (test code = MCH) 25.0 picogram 27.0-33.0 L MEAN CELL HGB CONCETRATION (test code = MCHC) 28.3 gram/dL 33.0-36. 0 L RED CELL DISTRIBUTION WIDTH (test code = RDW) 16.4 % 11.6-16. 2 H RED CELL DISTRIBUTION WIDTH SD (test code = RDW-SD) 53.1 fL 37 .0-51.0 H PLATELET COUNT (test code = PLT) 259 K/mm3 150-450 N MEAN PLATELET VOLUME (test code = MPV) 9.9 fL 6.7-11.0 N NEUTROPHIL % (test code = NT%) 73.1 % 39.0-69.0 H IMMATURE GRANULOCYTE % (test code = IG%) 0.4 % 0.0-5.0 N LYMPHOCYTE % (test code = LY%) 16.9 % 25.0-55.0 L MONOCYTE % (test code = MO%) 5.3 % 0.0-10.0 N EOSINOPHIL % (test code = EO%) 3.2 % 0.0-5.0 N BASOPHIL % (test code = BA%) 1.1 % 0.0-1.0 H NUCLEATED RBC % (test code = NRBC%) 0.0 % 0-0 N NEUTROPHIL # (test code = NT#) 5.42 K/mm3 1.8-7.7 N IMMATURE GRANULOCYTE # (test code = IG#) 0.03 x10 3/uL 0-0.03 N LYMPHOCYTE # (test code = LY#) 1.25 K/mm3 1.0-5.0 N MONOCYTE # (test code = MO#) 0.39 K/mm3 0-0.8 N EOSINOPHIL # (test code = EO#) 0.24 K/mm3 0.0-0.5 N BASOPHIL # (test code = BA#) 0.08 K/mm3 0.0-0.2 N NUCLEATED RBC # (test code = NRBC#) 0.00 K/mm3 0.0-0.1 N MANUAL DIFF REQUIRED (test code = MDIFF) NO, ONLY SCAN NEEDED DIFFERENTIAL [id number] 06:45:00* Test Item Value Reference Range Interpretation Comments STAIN ACCEPTABILITY (test code = STN ACCEPTABLE) CABOT RINGS (test code = CAB) MORPHOLOGY COMMENT (test code = MOC) PLATELET ESTIMATE (test code = PLTEST) PLATELET MORPHOLOGY (test code = PLTMORPH) CBC W/AUTO [id number] 06:42:00* Test Item Value Reference Range Interpretation Comments WHITE BLOOD CELL (test code = WBC) K/mm3 4.5-12.5 RED BLOOD CELL (test code = RBC) mill/mm3 3.7-5.2 HEMOGLOBIN (test code = HGB) gram/dL 11.5-15.5 HEMATOCRIT (test code = HCT) 36.0 % 36.0-46.0 N MEAN CELL VOLUME (test code = MCV) fL 80-98 MEAN CELL HGB (test code = MCH) picogram 27.0-33.0 MEAN CELL HGB CONCETRATION (test code = MCHC) gram/dL 33.0-36. 0 RED CELL DISTRIBUTION WIDTH (test code = RDW) % 11.6-16. 2 RED CELL DISTRIBUTION WIDTH SD (test code = RDW-SD) fL 37 .0-51.0 PLATELET COUNT (test code = PLT) K/mm3 150-450 MEAN PLATELET VOLUME (test code = MPV) fL 6.7-11.0 NEUTROPHIL % (test code = NT%) % 39.0-69.0 IMMATURE GRANULOCYTE % (test code = IG%) % 0.0-5.0 LYMPHOCYTE % (test code = LY%) % 25.0-55.0 MONOCYTE % (test code = MO%) % 0.0-10.0 EOSINOPHIL % (test code = EO%) % 0.0-5.0 BASOPHIL % (test code = BA%) % 0.0-1.0 NEUTROPHIL # (test code = NT#) K/mm3 1.8-7.7 LYMPHOCYTE # (test code = LY#) K/mm3 1.0-5.0 MONOCYTE # (test code = MO#) K/mm3 0-0.8 EOSINOPHIL # (test code = EO#) K/mm3 0.0-0.5 BASOPHIL # (test code = BA#) K/mm3 0.0-0.2 T3 [id number] 06:07:00* Test Item Value Reference Range Interpretation Comments T3 FREE (test code = T3F) 1.5 pg/mL 2.0-4.4 L Pe rformed At: [facility] [id number] [place], [place] [id number] Rush Mack MD Ph:[phone] [id number] 05:32:00* Test Item Value Reference Range Interpretation Comments GLUBED (test code = GLUBED) 104 mg/dL 74-106 N Performed by certified call center operator at [facility] [id number] 23:08:00* Test Item Value Reference Range Interpretation Comments GLUBED (test code = GLUBED) 153 mg/dL 74-106 H Performed by certified call center operator at [facility] [id number] 21:07:00* Test Item Value Reference Range Interpretation Comments GLUBED (test code = GLUBED) 110 mg/dL 74-106 H Performed by certified call center operator at [facility] [id number] 16:30:00* Test Item Value Reference Range Interpretation Comments GLUBED (test code = GLUBED) 86 mg/dL 74-106 N Performed by certified call center operator at [facility] THYROID PROFILE [id number] 13:17:00* Test Item Value Reference Range Interpretation Comments T3 UPTAKE (test code = T3UP) 40.0 % 30.0-40.0 N T4 (THYROXINE) (test code = T4) 10.5 ug/dL 4.5-13.9 N T7 (FREE THYROXINE INDEX) (test code = T7) 4.20 FTI 1.3-5.1 N THYROID STIMULATING HORMONE (test code = TSH) 1.490 uIU/mL 0.36-3.7 4 N TSH REFERENCE RANGES: EUTHYROID: 0.35 - 4.3 mIU/mL HYPO : > 5.5 mIU/mL HYPER : < 0.35 mIU/mL T4 [id number] 13:17:00* Test Item Value Reference Range Interpretation Comments T4 FREE (test code = T4F) 1.46 ng/dL 0.76-1.46 N [id number] 12:00:00* Test Item Value Reference Range Interpretation Comments GLUBED (test code = GLUBED) 203 mg/dL 74-106 H Performed by certified call center operator at [facility] [id number] 06:43:00* Test Item Value Reference Range Interpretation Comments GLUBED (test code = GLUBED) 144 mg/dL 74-106 H Performed by certified call center operator at [facility] PROTHROMBIN [id number] 06:11:00* Test Item Value Reference Range Interpretation Comments PROTHROMBIN TIME PATIENT (test code = PTP) 23.0 seconds 9.0-14.0 H INTERNATIONAL NORMAL RATIO (test code = INR) 1.9 0.8-1.2 H The therapeutic range for oral anticoagulant therapy formost indications is an international normalized ratio (INR)of between 2.0 and 3.0. The recommended therapeutic INRrange for various clinical situations is listed below: Clinical Situation INR range Pulmonary e mbolism treatment (2.0-3.0)Venous thrombosis treatmentVenous thrombosis prophylaxis (high risk surgery)Prevention of systemic embolism from: Acute myocardial infarction Valvular heart disease Atrial fibrillation Mechanical prosthetic heart valves (2.5-3.5) IS PATIENT ON ANTICOAGULANTS? YLIST ANTICOAGULANTS [id number] 20:42:00* Test Item Value Reference Range Interpretation Comments GLUBED (test code = GLUBED) 146 mg/dL 74-106 H Performed by certified call center operator at [facility] [id number] 16:58:00* Test Item Value Reference Range Interpretation Comments GLUBED (test code = GLUBED) 169 mg/dL 74-106 H Performed by certified call center operator at [facility] [id number] 16:58:00* Test Item Value Reference Range Interpretation Comments GLUBED (test code = GLUBED) 149 mg/dL 74-106 H Performed by certified call center operator at [facility] CBC W/AUTO [id number] 06:16:00* Test Item Value Reference Range Interpretation Comments WHITE BLOOD CELL (test code = WBC) 7.9 K/mm3 4.5-12.5 N RED BLOOD CELL (test code = RBC) 4.06 mill/mm3 3.7-5.2 N HEMOGLOBIN (test code = HGB) 10.4 gram/dL 11.5-15.5 L HEMATOCRIT (test code = HCT) 35.7 % 36.0-46.0 L MEAN CELL VOLUME (test code = MCV) 87.9 fL 80-98 N MEAN CELL HGB (test code = MCH) 25.6 picogram 27.0-33.0 L MEAN CELL HGB CONCETRATION (test code = MCHC) 29.1 gram/dL 33.0-36. 0 L RED CELL DISTRIBUTION WIDTH (test code = RDW) 16.2 % 11.6-16. 2 N RED CELL DISTRIBUTION WIDTH SD (test code = RDW-SD) 51.6 fL 37 .0-51.0 H PLATELET COUNT (test code = PLT) 244 K/mm3 150-450 N MEAN PLATELET VOLUME (test code = MPV) 9.8 fL 6.7-11.0 N NEUTROPHIL % (test code = NT%) 77.0 % 39.0-69.0 H IMMATURE GRANULOCYTE % (test code = IG%) 0.3 % 0.0-5.0 N LYMPHOCYTE % (test code = LY%) 12.4 % 25.0-55.0 L MONOCYTE % (test code = MO%) 7.0 % 0.0-10.0 N EOSINOPHIL % (test code = EO%) 2.5 % 0.0-5.0 N BASOPHIL % (test code = BA%) 0.8 % 0.0-1.0 N NUCLEATED RBC % (test code = NRBC%) 0.0 % 0-0 N NEUTROPHIL # (test code = NT#) 6.10 K/mm3 1.8-7.7 N IMMATURE GRANULOCYTE # (test code = IG#) 0.02 x10 3/uL 0-0.03 N LYMPHOCYTE # (test code = LY#) 0.98 K/mm3 1.0-5.0 L MONOCYTE # (test code = MO#) 0.55 K/mm3 0-0.8 N EOSINOPHIL # (test code = EO#) 0.20 K/mm3 0.0-0.5 N BASOPHIL # (test code = BA#) 0.06 K/mm3 0.0-0.2 N NUCLEATED RBC # (test code = NRBC#) 0.00 K/mm3 0.0-0.1 N MANUAL DIFF REQUIRED (test code = MDIFF) NO, ONLY SCAN NEEDED DIFFERENTIAL [id number] 06:16:00* Test Item Value Reference Range Interpretation Comments STAIN ACCEPTABILITY (test code = STN ACCEPTABLE) STAIN ACCEPTABLE HYPOCHROMIA (test code = HYPO) 1+ ANISOCYTOSIS (test code = ANISO) 1+ MICROCYTOSIS (test code = MICR) 1+ PLATELET ESTIMATE (test code = PLTEST) ADEQUATE PLATELET MORPHOLOGY (test code = PLTMORPH) NORMAL BASIC METABOLIC [id number] 06:03:00* Test Item Value Reference Range Interpretation Comments SODIUM (test code = NA) 136 mmol/L 136-145 N POTASSIUM (test code = K) 4.5 mmol/L 3.5-5.1 N CHLORIDE (test code = CL) 102.0 mmol/L 98-107 N CARBON DIOXIDE (test code = CO2) 26.0 mmol/L 21-32 N ANION GAP (test code = GAP) 12.5 10-20 N GLUCOSE (test code = GLU) 153 mg/dL 74-106 H BLOOD UREA NITROGEN (test code = BUN) 23 mg/dL 7-18 H RESULT VERIFIED BY REPEAT ANALYSIS GLOMERULAR FILTRATION RATE (test code = GFR) 9 mL/min >=60 Estimated GFR by using Modified MDRD formula.Chronic kidney disease is defined as either kidney damageor GFR <60 mL/min/1.73 m2 for >3 months. CREATININE (test code = CREAT) 4.80 mg/dL 0.55-1.02 H Note change in reference range due to change in reagent. BUN/CREATININE RATIO (test code = BUN/CREA) 4.8 10-20 L CALCIUM (test code = CA) 8.2 mg/dL 8.5-10.1 L [id number] 06:01:00* Test Item Value Reference Range Interpretation Comments GLUBED (test code = GLUBED) 125 mg/dL 74-106 H Performed by certified call center operator at [facility] PROTHROMBIN [id number] 05:30:00* Test Item Value Reference Range Interpretation Comments PROTHROMBIN TIME PATIENT (test code = PTP) 20.0 seconds 9.0-14.0 H INTERNATIONAL NORMAL RATIO (test code = INR) 1.7 0.8-1.2 H The therapeutic range for oral anticoagulant therapy formost indications is an international normalized ratio (INR)of between 2.0 and 3.0. The recommended therapeutic INRrange for various clinical situations is listed below: Clinical Situation INR range Pulmonary e mbolism treatment (2.0-3.0)Venous thrombosis treatmentVenous thrombosis prophylaxis (high risk surgery)Prevention of systemic embolism from: Acute myocardial infarction Valvular heart disease Atrial fibrillation Mechanical prosthetic heart valves (2.5-3.5) IS PATIENT ON ANTICOAGULANTS? YLIST ANTICOAGULANTS COUMADINCBC W/AUTO DIFF 2018-12-17 05:27:00* Test Item Value Reference Range Interpretation Comments WHITE BLOOD CELL (test code = WBC) 7.9 K/mm3 4.5-12.5 N RED BLOOD CELL (test code = RBC) 4.06 mill/mm3 3.7-5.2 N HEMOGLOBIN (test code = HGB) 10.4 gram/dL 11.5-15.5 L HEMATOCRIT (test code = HCT) 35.7 % 36.0-46.0 L MEAN CELL VOLUME (test code = MCV) 87.9 fL 80-98 N MEAN CELL HGB (test code = MCH) 25.6 picogram 27.0-33.0 L MEAN CELL HGB CONCETRATION (test code = MCHC) 29.1 gram/dL 33.0-36. 0 L RED CELL DISTRIBUTION WIDTH (test code = RDW) 16.2 % 11.6-16. 2 N RED CELL DISTRIBUTION WIDTH SD (test code = RDW-SD) 51.6 fL 37 .0-51.0 H PLATELET COUNT (test code = PLT) 244 K/mm3 150-450 N MEAN PLATELET VOLUME (test code = MPV) 9.8 fL 6.7-11.0 N NEUTROPHIL % (test code = NT%) 77.0 % 39.0-69.0 H IMMATURE GRANULOCYTE % (test code = IG%) 0.3 % 0.0-5.0 N LYMPHOCYTE % (test code = LY%) 12.4 % 25.0-55.0 L MONOCYTE % (test code = MO%) 7.0 % 0.0-10.0 N EOSINOPHIL % (test code = EO%) 2.5 % 0.0-5.0 N BASOPHIL % (test code = BA%) 0.8 % 0.0-1.0 N NUCLEATED RBC % (test code = NRBC%) 0.0 % 0-0 N NEUTROPHIL # (test code = NT#) 6.10 K/mm3 1.8-7.7 N IMMATURE GRANULOCYTE # (test code = IG#) 0.02 x10 3/uL 0-0.03 N LYMPHOCYTE # (test code = LY#) 0.98 K/mm3 1.0-5.0 L MONOCYTE # (test code = MO#) 0.55 K/mm3 0-0.8 N EOSINOPHIL # (test code = EO#) 0.20 K/mm3 0.0-0.5 N BASOPHIL # (test code = BA#) 0.06 K/mm3 0.0-0.2 N NUCLEATED RBC # (test code = NRBC#) 0.00 K/mm3 0.0-0.1 N MANUAL DIFF REQUIRED (test code = MDIFF) NO, ONLY SCAN NEEDED DIFFERENTIAL [id number] 05:27:00* Test Item Value Reference Range Interpretation Comments STAIN ACCEPTABILITY (test code = STN ACCEPTABLE) CABOT RINGS (test code = CAB) MORPHOLOGY COMMENT (test code = MOC) PLATELET ESTIMATE (test code = PLTEST) PLATELET MORPHOLOGY (test code = PLTMORPH) CBC W/AUTO [id number] 05:27:00* Test Item Value Reference Range Interpretation Comments WHITE BLOOD CELL (test code = WBC) 7.9 K/mm3 4.5-12.5 N RED BLOOD CELL (test code = RBC) 4.06 mill/mm3 3.7-5.2 N HEMOGLOBIN (test code = HGB) 10.4 gram/dL 11.5-15.5 L HEMATOCRIT (test code = HCT) 35.7 % 36.0-46.0 L MEAN CELL VOLUME (test code = MCV) 87.9 fL 80-98 N MEAN CELL HGB (test code = MCH) 25.6 picogram 27.0-33.0 L MEAN CELL HGB CONCETRATION (test code = MCHC) 29.1 gram/dL 33.0-36. 0 L RED CELL DISTRIBUTION WIDTH (test code = RDW) 16.2 % 11.6-16. 2 N RED CELL DISTRIBUTION WIDTH SD (test code = RDW-SD) 51.6 fL 37 .0-51.0 H PLATELET COUNT (test code = PLT) 244 K/mm3 150-450 N MEAN PLATELET VOLUME (test code = MPV) 9.8 fL 6.7-11.0 N NEUTROPHIL % (test code = NT%) 77.0 % 39.0-69.0 H IMMATURE GRANULOCYTE % (test code = IG%) 0.3 % 0.0-5.0 N LYMPHOCYTE % (test code = LY%) 12.4 % 25.0-55.0 L MONOCYTE % (test code = MO%) 7.0 % 0.0-10.0 N EOSINOPHIL % (test code = EO%) 2.5 % 0.0-5.0 N BASOPHIL % (test code = BA%) 0.8 % 0.0-1.0 N NUCLEATED RBC % (test code = NRBC%) 0.0 % 0-0 N NEUTROPHIL # (test code = NT#) 6.10 K/mm3 1.8-7.7 N IMMATURE GRANULOCYTE # (test code = IG#) 0.02 x10 3/uL 0-0.03 N LYMPHOCYTE # (test code = LY#) 0.98 K/mm3 1.0-5.0 L MONOCYTE # (test code = MO#) 0.55 K/mm3 0-0.8 N EOSINOPHIL # (test code = EO#) 0.20 K/mm3 0.0-0.5 N BASOPHIL # (test code = BA#) 0.06 K/mm3 0.0-0.2 N NUCLEATED RBC # (test code = NRBC#) 0.00 K/mm3 0.0-0.1 N MANUAL DIFF REQUIRED (test code = MDIFF) NO, ONLY SCAN NEEDED DIFFERENTIAL [id number] 05:27:00* Test Item Value Reference Range Interpretation Comments STAIN ACCEPTABILITY (test code = STN ACCEPTABLE) CABOT RINGS (test code = CAB) MORPHOLOGY COMMENT (test code = MOC) PLATELET ESTIMATE (test code = PLTEST) PLATELET MORPHOLOGY (test code = PLTMORPH) CBC W/AUTO [id number] 05:27:00* Test Item Value Reference Range Interpretation Comments WHITE BLOOD CELL (test code = WBC) 7.9 K/mm3 4.5-12.5 N RED BLOOD CELL (test code = RBC) 4.06 mill/mm3 3.7-5.2 N HEMOGLOBIN (test code = HGB) 10.4 gram/dL 11.5-15.5 L HEMATOCRIT (test code = HCT) 35.7 % 36.0-46.0 L MEAN CELL VOLUME (test code = MCV) 87.9 fL 80-98 N MEAN CELL HGB (test code = MCH) 25.6 picogram 27.0-33.0 L MEAN CELL HGB CONCETRATION (test code = MCHC) 29.1 gram/dL 33.0-36. 0 L RED CELL DISTRIBUTION WIDTH (test code = RDW) 16.2 % 11.6-16. 2 N RED CELL DISTRIBUTION WIDTH SD (test code = RDW-SD) 51.6 fL 37 .0-51.0 H PLATELET COUNT (test code = PLT) 244 K/mm3 150-450 N MEAN PLATELET VOLUME (test code = MPV) 9.8 fL 6.7-11.0 N NEUTROPHIL % (test code = NT%) 77.0 % 39.0-69.0 H IMMATURE GRANULOCYTE % (test code = IG%) 0.3 % 0.0-5.0 N LYMPHOCYTE % (test code = LY%) 12.4 % 25.0-55.0 L MONOCYTE % (test code = MO%) 7.0 % 0.0-10.0 N EOSINOPHIL % (test code = EO%) 2.5 % 0.0-5.0 N BASOPHIL % (test code = BA%) 0.8 % 0.0-1.0 N NUCLEATED RBC % (test code = NRBC%) 0.0 % 0-0 N NEUTROPHIL # (test code = NT#) 6.10 K/mm3 1.8-7.7 N IMMATURE GRANULOCYTE # (test code = IG#) 0.02 x10 3/uL 0-0.03 N LYMPHOCYTE # (test code = LY#) 0.98 K/mm3 1.0-5.0 L MONOCYTE # (test code = MO#) 0.55 K/mm3 0-0.8 N EOSINOPHIL # (test code = EO#) 0.20 K/mm3 0.0-0.5 N BASOPHIL # (test code = BA#) 0.06 K/mm3 0.0-0.2 N NUCLEATED RBC # (test code = NRBC#) 0.00 K/mm3 0.0-0.1 N MANUAL DIFF REQUIRED (test code = MDIFF) NO, ONLY SCAN NEEDED DIFFERENTIAL [id number] 05:27:00* Test Item Value Reference Range Interpretation Comments STAIN ACCEPTABILITY (test code = STN ACCEPTABLE) MORPHOLOGY COMMENT (test code = MOC) PLATELET ESTIMATE (test code = PLTEST) PLATELET MORPHOLOGY (test code = PLTMORPH) CBC W/AUTO [id number] 05:27:00* Test Item Value Reference Range Interpretation Comments WHITE BLOOD CELL (test code = WBC) 7.9 K/mm3 4.5-12.5 N RED BLOOD CELL (test code = RBC) 4.06 mill/mm3 3.7-5.2 N HEMOGLOBIN (test code = HGB) 10.4 gram/dL 11.5-15.5 L HEMATOCRIT (test code = HCT) 35.7 % 36.0-46.0 L MEAN CELL VOLUME (test code = MCV) 87.9 fL 80-98 N MEAN CELL HGB (test code = MCH) 25.6 picogram 27.0-33.0 L MEAN CELL HGB CONCETRATION (test code = MCHC) 29.1 gram/dL 33.0-36. 0 L RED CELL DISTRIBUTION WIDTH (test code = RDW) 16.2 % 11.6-16. 2 N RED CELL DISTRIBUTION WIDTH SD (test code = RDW-SD) 51.6 fL 37 .0-51.0 H PLATELET COUNT (test code = PLT) 244 K/mm3 150-450 N MEAN PLATELET VOLUME (test code = MPV) 9.8 fL 6.7-11.0 N NEUTROPHIL % (test code = NT%) 77.0 % 39.0-69.0 H IMMATURE GRANULOCYTE % (test code = IG%) 0.3 % 0.0-5.0 N LYMPHOCYTE % (test code = LY%) 12.4 % 25.0-55.0 L MONOCYTE % (test code = MO%) 7.0 % 0.0-10.0 N EOSINOPHIL % (test code = EO%) 2.5 % 0.0-5.0 N BASOPHIL % (test code = BA%) 0.8 % 0.0-1.0 N NUCLEATED RBC % (test code = NRBC%) 0.0 % 0-0 N NEUTROPHIL # (test code = NT#) 6.10 K/mm3 1.8-7.7 N IMMATURE GRANULOCYTE # (test code = IG#) 0.02 x10 3/uL 0-0.03 N LYMPHOCYTE # (test code = LY#) 0.98 K/mm3 1.0-5.0 L MONOCYTE # (test code = MO#) 0.55 K/mm3 0-0.8 N EOSINOPHIL # (test code = EO#) 0.20 K/mm3 0.0-0.5 N BASOPHIL # (test code = BA#) 0.06 K/mm3 0.0-0.2 N NUCLEATED RBC # (test code = NRBC#) 0.00 K/mm3 0.0-0.1 N MANUAL DIFF REQUIRED (test code = MDIFF) NO, ONLY SCAN NEEDED DIFFERENTIAL [id number] 05:27:00* Test Item Value Reference Range Interpretation Comments STAIN ACCEPTABILITY (test code = STN ACCEPTABLE) CABOT RINGS (test code = CAB) MORPHOLOGY COMMENT (test code = MOC) PLATELET ESTIMATE (test code = PLTEST) PLATELET MORPHOLOGY (test code = PLTMORPH) [id number] 20:47:00* Test Item Value Reference Range Interpretation Comments GLUBED (test code = GLUBED) 136 mg/dL 74-106 H Performed by certified call center operator at [facility] [id number] 16:33:00* Test Item Value Reference Range Interpretation Comments GLUBED (test code = GLUBED) 173 mg/dL 74-106 H Performed by certified call center operator at [facility] [id number] 06:25:00* Test Item Value Reference Range Interpretation Comments GLUBED (test code = GLUBED) 142 mg/dL 74-106 H Performed by certified call center operator at [facility] BASIC METABOLIC [id number] 06:25:00* Test Item Value Reference Range Interpretation Comments SODIUM (test code = NA) 135 mmol/L 136-145 L POTASSIUM (test code = K) 5.0 mmol/L 3.5-5.1 N CHLORIDE (test code = CL) 98.0 mmol/L 98-107 N CARBON DIOXIDE (test code = CO2) 26.0 mmol/L 21-32 N ANION GAP (test code = GAP) 16.0 10-20 N GLUCOSE (test code = GLU) 119 mg/dL 74-106 H BLOOD UREA NITROGEN (test code = BUN) 36 mg/dL 7-18 H GLOMERULAR FILTRATION RATE (test code = GFR) 6 mL/min >=60 Estimated GFR by using Modified MDRD formula.Chronic kidney disease is defined as either kidney damageor GFR <60 mL/min/1.73 m2 for >3 months. CREATININE (test code = CREAT) 6.60 mg/dL 0.55-1.02 H Note change in reference range due to change in reagent. BUN/CREATININE RATIO (test code = BUN/CREA) 5.4 10-20 L CALCIUM (test code = CA) 8.3 mg/dL 8.5-10.1 L CBC W/AUTO [id number] 06:25:00* Test Item Value Reference Range Interpretation Comments WHITE BLOOD CELL (test code = WBC) 7.9 K/mm3 4.5-12.5 N RED BLOOD CELL (test code = RBC) 3.85 mill/mm3 3.7-5.2 N HEMOGLOBIN (test code = HGB) 9.8 gram/dL 11.5-15.5 L HEMATOCRIT (test code = HCT) 34.0 % 36.0-46.0 L MEAN CELL VOLUME (test code = MCV) 88.3 fL 80-98 N MEAN CELL HGB (test code = MCH) 25.5 picogram 27.0-33.0 L MEAN CELL HGB CONCETRATION (test code = MCHC) 28.8 gram/dL 33.0-36. 0 L RED CELL DISTRIBUTION WIDTH (test code = RDW) 16.1 % 11.6-16. 2 N RED CELL DISTRIBUTION WIDTH SD (test code = RDW-SD) 51.6 fL 37 .0-51.0 H PLATELET COUNT (test code = PLT) 208 K/mm3 150-450 N MEAN PLATELET VOLUME (test code = MPV) 9.5 fL 6.7-11.0 N NEUTROPHIL % (test code = NT%) 80.6 % 39.0-69.0 H IMMATURE GRANULOCYTE % (test code = IG%) 0.4 % 0.0-5.0 N LYMPHOCYTE % (test code = LY%) 9.1 % 25.0-55.0 L MONOCYTE % (test code = MO%) 6.1 % 0.0-10.0 N EOSINOPHIL % (test code = EO%) 2.9 % 0.0-5.0 N BASOPHIL % (test code = BA%) 0.9 % 0.0-1.0 N NUCLEATED RBC % (test code = NRBC%) 0.0 % 0-0 N NEUTROPHIL # (test code = NT#) 6.40 K/mm3 1.8-7.7 N IMMATURE GRANULOCYTE # (test code = IG#) 0.03 x10 3/uL 0-0.03 N LYMPHOCYTE # (test code = LY#) 0.72 K/mm3 1.0-5.0 L MONOCYTE # (test code = MO#) 0.48 K/mm3 0-0.8 N EOSINOPHIL # (test code = EO#) 0.23 K/mm3 0.0-0.5 N BASOPHIL # (test code = BA#) 0.07 K/mm3 0.0-0.2 N NUCLEATED RBC # (test code = NRBC#) 0.00 K/mm3 0.0-0.1 N MANUAL DIFF REQUIRED (test code = MDIFF) NO, ONLY SCAN NEEDED DIFFERENTIAL [id number] 06:25:00* Test Item Value Reference Range Interpretation Comments STAIN ACCEPTABILITY (test code = STN ACCEPTABLE) STAIN ACCEPTABLE HYPOCHROMIA (test code = HYPO) 1+ ANISOCYTOSIS (test code = ANISO) 1+ MACROCYTOSIS (test code = MACR) 1+ PLATELET ESTIMATE (test code = PLTEST) ADEQUATE PLATELET MORPHOLOGY (test code = PLTMORPH) NORMAL BASIC METABOLIC [id number] 06:19:00* Test Item Value Reference Range Interpretation Comments SODIUM (test code = NA) 135 mmol/L 136-145 L POTASSIUM (test code = K) 5.0 mmol/L 3.5-5.1 N CHLORIDE (test code = CL) 98.0 mmol/L 98-107 N CARBON DIOXIDE (test code = CO2) mmol/L 21-32 ANION GAP (test code = GAP) 10-20 GLUCOSE (test code = GLU) mg/dL 74-106 BLOOD UREA NITROGEN (test code = BUN) mg/dL 7-18 GLOMERULAR FILTRATION RATE (test code = GFR) mL/min >=60 CREATININE (test code = CREAT) mg/dL 0.55-1.02 BUN/CREATININE RATIO (test code = BUN/CREA) 10-20 CALCIUM (test code = CA) mg/dL 8.5-10.1 PROTHROMBIN [id number] 05:39:00* Test Item Value Reference Range Interpretation Comments PROTHROMBIN TIME PATIENT (test code = PTP) 20.4 seconds 9.0-14.0 H INTERNATIONAL NORMAL RATIO (test code = INR) 1.7 0.8-1.2 H The therapeutic range for oral anticoagulant therapy formost indications is an international normalized ratio (INR)of between 2.0 and 3.0. The recommended therapeutic INRrange for various clinical situations is listed below: Clinical Situation INR range Pulmonary e mbolism treatment (2.0-3.0)Venous thrombosis treatmentVenous thrombosis prophylaxis (high risk surgery)Prevention of systemic embolism from: Acute myocardial infarction Valvular heart disease Atrial fibrillation Mechanical prosthetic heart valves (2.5-3.5) IS PATIENT ON ANTICOAGULANTS? YLIST ANTICOAGULANTS COUMADINCBC W/AUTO DIFF 2018-12-16 05:38:00* Test Item Value Reference Range Interpretation Comments WHITE BLOOD CELL (test code = WBC) 7.9 K/mm3 4.5-12.5 N RED BLOOD CELL (test code = RBC) 3.85 mill/mm3 3.7-5.2 N HEMOGLOBIN (test code = HGB) 9.8 gram/dL 11.5-15.5 L HEMATOCRIT (test code = HCT) 34.0 % 36.0-46.0 L MEAN CELL VOLUME (test code = MCV) 88.3 fL 80-98 N MEAN CELL HGB (test code = MCH) 25.5 picogram 27.0-33.0 L MEAN CELL HGB CONCETRATION (test code = MCHC) 28.8 gram/dL 33.0-36. 0 L RED CELL DISTRIBUTION WIDTH (test code = RDW) 16.1 % 11.6-16. 2 N RED CELL DISTRIBUTION WIDTH SD (test code = RDW-SD) 51.6 fL 37 .0-51.0 H PLATELET COUNT (test code = PLT) 208 K/mm3 150-450 N MEAN PLATELET VOLUME (test code = MPV) 9.5 fL 6.7-11.0 N NEUTROPHIL % (test code = NT%) 80.6 % 39.0-69.0 H IMMATURE GRANULOCYTE % (test code = IG%) 0.4 % 0.0-5.0 N LYMPHOCYTE % (test code = LY%) 9.1 % 25.0-55.0 L MONOCYTE % (test code = MO%) 6.1 % 0.0-10.0 N EOSINOPHIL % (test code = EO%) 2.9 % 0.0-5.0 N BASOPHIL % (test code = BA%) 0.9 % 0.0-1.0 N NUCLEATED RBC % (test code = NRBC%) 0.0 % 0-0 N NEUTROPHIL # (test code = NT#) 6.40 K/mm3 1.8-7.7 N IMMATURE GRANULOCYTE # (test code = IG#) 0.03 x10 3/uL 0-0.03 N LYMPHOCYTE # (test code = LY#) 0.72 K/mm3 1.0-5.0 L MONOCYTE # (test code = MO#) 0.48 K/mm3 0-0.8 N EOSINOPHIL # (test code = EO#) 0.23 K/mm3 0.0-0.5 N BASOPHIL # (test code = BA#) 0.07 K/mm3 0.0-0.2 N NUCLEATED RBC # (test code = NRBC#) 0.00 K/mm3 0.0-0.1 N MANUAL DIFF REQUIRED (test code = MDIFF) NO, ONLY SCAN NEEDED DIFFERENTIAL [id number] 05:38:00* Test Item Value Reference Range Interpretation Comments STAIN ACCEPTABILITY (test code = STN ACCEPTABLE) CABOT RINGS (test code = CAB) MORPHOLOGY COMMENT (test code = MOC) PLATELET ESTIMATE (test code = PLTEST) PLATELET MORPHOLOGY (test code = PLTMORPH) CBC W/AUTO [id number] 05:38:00* Test Item Value Reference Range Interpretation Comments WHITE BLOOD CELL (test code = WBC) 7.9 K/mm3 4.5-12.5 N RED BLOOD CELL (test code = RBC) 3.85 mill/mm3 3.7-5.2 N HEMOGLOBIN (test code = HGB) 9.8 gram/dL 11.5-15.5 L HEMATOCRIT (test code = HCT) 34.0 % 36.0-46.0 L MEAN CELL VOLUME (test code = MCV) 88.3 fL 80-98 N MEAN CELL HGB (test code = MCH) 25.5 picogram 27.0-33.0 L MEAN CELL HGB CONCETRATION (test code = MCHC) 28.8 gram/dL 33.0-36. 0 L RED CELL DISTRIBUTION WIDTH (test code = RDW) 16.1 % 11.6-16. 2 N RED CELL DISTRIBUTION WIDTH SD (test code = RDW-SD) 51.6 fL 37 .0-51.0 H PLATELET COUNT (test code = PLT) 208 K/mm3 150-450 N MEAN PLATELET VOLUME (test code = MPV) 9.5 fL 6.7-11.0 N NEUTROPHIL % (test code = NT%) 80.6 % 39.0-69.0 H IMMATURE GRANULOCYTE % (test code = IG%) 0.4 % 0.0-5.0 N LYMPHOCYTE % (test code = LY%) 9.1 % 25.0-55.0 L MONOCYTE % (test code = MO%) 6.1 % 0.0-10.0 N EOSINOPHIL % (test code = EO%) 2.9 % 0.0-5.0 N BASOPHIL % (test code = BA%) 0.9 % 0.0-1.0 N NUCLEATED RBC % (test code = NRBC%) 0.0 % 0-0 N NEUTROPHIL # (test code = NT#) 6.40 K/mm3 1.8-7.7 N IMMATURE GRANULOCYTE # (test code = IG#) 0.03 x10 3/uL 0-0.03 N LYMPHOCYTE # (test code = LY#) 0.72 K/mm3 1.0-5.0 L MONOCYTE # (test code = MO#) 0.48 K/mm3 0-0.8 N EOSINOPHIL # (test code = EO#) 0.23 K/mm3 0.0-0.5 N BASOPHIL # (test code = BA#) 0.07 K/mm3 0.0-0.2 N NUCLEATED RBC # (test code = NRBC#) 0.00 K/mm3 0.0-0.1 N MANUAL DIFF REQUIRED (test code = MDIFF) NO, ONLY SCAN NEEDED DIFFERENTIAL [id number] 05:38:00* Test Item Value Reference Range Interpretation Comments STAIN ACCEPTABILITY (test code = STN ACCEPTABLE) MORPHOLOGY COMMENT (test code = MOC) PLATELET ESTIMATE (test code = PLTEST) PLATELET MORPHOLOGY (test code = PLTMORPH) CBC W/AUTO [id number] 05:37:00* Test Item Value Reference Range Interpretation Comments WHITE BLOOD CELL (test code = WBC) 7.9 K/mm3 4.5-12.5 N RED BLOOD CELL (test code = RBC) 3.85 mill/mm3 3.7-5.2 N HEMOGLOBIN (test code = HGB) 9.8 gram/dL 11.5-15.5 L HEMATOCRIT (test code = HCT) 34.0 % 36.0-46.0 L MEAN CELL VOLUME (test code = MCV) 88.3 fL 80-98 N MEAN CELL HGB (test code = MCH) 25.5 picogram 27.0-33.0 L MEAN CELL HGB CONCETRATION (test code = MCHC) 28.8 gram/dL 33.0-36. 0 L RED CELL DISTRIBUTION WIDTH (test code = RDW) 16.1 % 11.6-16. 2 N RED CELL DISTRIBUTION WIDTH SD (test code = RDW-SD) 51.6 fL 37 .0-51.0 H PLATELET COUNT (test code = PLT) 208 K/mm3 150-450 N MEAN PLATELET VOLUME (test code = MPV) 9.5 fL 6.7-11.0 N NEUTROPHIL % (test code = NT%) 80.6 % 39.0-69.0 H IMMATURE GRANULOCYTE % (test code = IG%) 0.4 % 0.0-5.0 N LYMPHOCYTE % (test code = LY%) 9.1 % 25.0-55.0 L MONOCYTE % (test code = MO%) 6.1 % 0.0-10.0 N EOSINOPHIL % (test code = EO%) 2.9 % 0.0-5.0 N BASOPHIL % (test code = BA%) 0.9 % 0.0-1.0 N NUCLEATED RBC % (test code = NRBC%) 0.0 % 0-0 N NEUTROPHIL # (test code = NT#) 6.40 K/mm3 1.8-7.7 N IMMATURE GRANULOCYTE # (test code = IG#) 0.03 x10 3/uL 0-0.03 N LYMPHOCYTE # (test code = LY#) 0.72 K/mm3 1.0-5.0 L MONOCYTE # (test code = MO#) 0.48 K/mm3 0-0.8 N EOSINOPHIL # (test code = EO#) 0.23 K/mm3 0.0-0.5 N BASOPHIL # (test code = BA#) 0.07 K/mm3 0.0-0.2 N NUCLEATED RBC # (test code = NRBC#) 0.00 K/mm3 0.0-0.1 N MANUAL DIFF REQUIRED (test code = MDIFF) NO, ONLY SCAN NEEDED DIFFERENTIAL [id number] 05:37:00* Test Item Value Reference Range Interpretation Comments STAIN ACCEPTABILITY (test code = STN ACCEPTABLE) CABOT RINGS (test code = CAB) MORPHOLOGY COMMENT (test code = MOC) PLATELET ESTIMATE (test code = PLTEST) PLATELET MORPHOLOGY (test code = PLTMORPH) CBC W/AUTO [id number] 05:37:00* Test Item Value Reference Range Interpretation Comments WHITE BLOOD CELL (test code = WBC) 7.9 K/mm3 4.5-12.5 N RED BLOOD CELL (test code = RBC) 3.85 mill/mm3 3.7-5.2 N HEMOGLOBIN (test code = HGB) 9.8 gram/dL 11.5-15.5 L HEMATOCRIT (test code = HCT) 34.0 % 36.0-46.0 L MEAN CELL VOLUME (test code = MCV) 88.3 fL 80-98 N MEAN CELL HGB (test code = MCH) 25.5 picogram 27.0-33.0 L MEAN CELL HGB CONCETRATION (test code = MCHC) 28.8 gram/dL 33.0-36. 0 L RED CELL DISTRIBUTION WIDTH (test code = RDW) 16.1 % 11.6-16. 2 N RED CELL DISTRIBUTION WIDTH SD (test code = RDW-SD) 51.6 fL 37 .0-51.0 H PLATELET COUNT (test code = PLT) 208 K/mm3 150-450 N MEAN PLATELET VOLUME (test code = MPV) 9.5 fL 6.7-11.0 N NEUTROPHIL % (test code = NT%) 80.6 % 39.0-69.0 H IMMATURE GRANULOCYTE % (test code = IG%) 0.4 % 0.0-5.0 N LYMPHOCYTE % (test code = LY%) 9.1 % 25.0-55.0 L MONOCYTE % (test code = MO%) 6.1 % 0.0-10.0 N EOSINOPHIL % (test code = EO%) 2.9 % 0.0-5.0 N BASOPHIL % (test code = BA%) 0.9 % 0.0-1.0 N NUCLEATED RBC % (test code = NRBC%) 0.0 % 0-0 N NEUTROPHIL # (test code = NT#) 6.40 K/mm3 1.8-7.7 N IMMATURE GRANULOCYTE # (test code = IG#) 0.03 x10 3/uL 0-0.03 N LYMPHOCYTE # (test code = LY#) 0.72 K/mm3 1.0-5.0 L MONOCYTE # (test code = MO#) 0.48 K/mm3 0-0.8 N EOSINOPHIL # (test code = EO#) 0.23 K/mm3 0.0-0.5 N BASOPHIL # (test code = BA#) 0.07 K/mm3 0.0-0.2 N NUCLEATED RBC # (test code = NRBC#) 0.00 K/mm3 0.0-0.1 N MANUAL DIFF REQUIRED (test code = MDIFF) NO, ONLY SCAN NEEDED DIFFERENTIAL [id number] 05:37:00* Test Item Value Reference Range Interpretation Comments STAIN ACCEPTABILITY (test code = STN ACCEPTABLE) CABOT RINGS (test code = CAB) MORPHOLOGY COMMENT (test code = MOC) PLATELET ESTIMATE (test code = PLTEST) PLATELET MORPHOLOGY (test code = PLTMORPH) [id number] 20:37:00* Test Item Value Reference Range Interpretation Comments GLUBED (test code = GLUBED) 175 mg/dL 74-106 H Performed by certified call center operator at [facility] [id number] 17:15:00* Test Item Value Reference Range Interpretation Comments GLUBED (test code = GLUBED) 111 mg/dL 74-106 H Performed by certified call center operator at [facility] [id number] 13:12:00* Test Item Value Reference Range Interpretation Comments GLUBED (test code = GLUBED) 160 mg/dL 74-106 H Performed by certified call center operator at [facility] CBC W/AUTO [id number] 08:22:00* Test Item Value Reference Range Interpretation Comments WHITE BLOOD CELL (test code = WBC) 9.0 K/mm3 4.5-12.5 N RED BLOOD CELL (test code = RBC) 3.82 mill/mm3 3.7-5.2 N HEMOGLOBIN (test code = HGB) 9.9 gram/dL 11.5-15.5 L HEMATOCRIT (test code = HCT) 33.4 % 36.0-46.0 L MEAN CELL VOLUME (test code = MCV) 87.4 fL 80-98 N MEAN CELL HGB (test code = MCH) 25.9 picogram 27.0-33.0 L MEAN CELL HGB CONCETRATION (test code = MCHC) 29.6 gram/dL 33.0-36. 0 L RED CELL DISTRIBUTION WIDTH (test code = RDW) 16.2 % 11.6-16. 2 N RED CELL DISTRIBUTION WIDTH SD (test code = RDW-SD) 51.7 fL 37 .0-51.0 H PLATELET COUNT (test code = PLT) 215 K/mm3 150-450 N MEAN PLATELET VOLUME (test code = MPV) 10.0 fL 6.7-11.0 N NEUTROPHIL % (test code = NT%) 80.9 % 39.0-69.0 H IMMATURE GRANULOCYTE % (test code = IG%) 0.3 % 0.0-5.0 N LYMPHOCYTE % (test code = LY%) 10.7 % 25.0-55.0 L MONOCYTE % (test code = MO%) 5.2 % 0.0-10.0 N EOSINOPHIL % (test code = EO%) 2.3 % 0.0-5.0 N BASOPHIL % (test code = BA%) 0.6 % 0.0-1.0 N NUCLEATED RBC % (test code = NRBC%) 0.0 % 0-0 N NEUTROPHIL # (test code = NT#) 7.28 K/mm3 1.8-7.7 N IMMATURE GRANULOCYTE # (test code = IG#) 0.03 x10 3/uL 0-0.03 N LYMPHOCYTE # (test code = LY#) 0.96 K/mm3 1.0-5.0 L MONOCYTE # (test code = MO#) 0.47 K/mm3 0-0.8 N EOSINOPHIL # (test code = EO#) 0.21 K/mm3 0.0-0.5 N BASOPHIL # (test code = BA#) 0.05 K/mm3 0.0-0.2 N NUCLEATED RBC # (test code = NRBC#) 0.00 K/mm3 0.0-0.1 N MANUAL DIFF REQUIRED (test code = MDIFF) NO, ONLY SCAN NEEDED DIFFERENTIAL [id number] 08:22:00* Test Item Value Reference Range Interpretation Comments STAIN ACCEPTABILITY (test code = STN ACCEPTABLE) STAIN ACCEPTABLE POLYCHROMASIA (test code = POLC) 1+ HYPOCHROMIA (test code = HYPO) 2+ POIKILOCYTOSIS (test code = POIK) 1+ BASOPHILIC STIPPLING (test code = STP) 1+ ANISOCYTOSIS (test code = ANISO) 2+ PLATELET ESTIMATE (test code = PLTEST) ADEQUATE PLATELET MORPHOLOGY (test code = PLTMORPH) NORMAL PROTHROMBIN [id number] 07:06:00* Test Item Value Reference Range Interpretation Comments PROTHROMBIN TIME PATIENT (test code = PTP) 21.9 seconds 9.0-14.0 H INTERNATIONAL NORMAL RATIO (test code = INR) 1.9 0.8-1.2 H The therapeutic range for oral anticoagulant therapy formost indications is an international normalized ratio (INR)of between 2.0 and 3.0. The recommended therapeutic INRrange for various clinical situations is listed below: Clinical Situation INR range Pulmonary e mbolism treatment (2.0-3.0)Venous thrombosis treatmentVenous thrombosis prophylaxis (high risk surgery)Prevention of systemic embolism from: Acute myocardial infarction Valvular heart disease Atrial fibrillation Mechanical prosthetic heart valves (2.5-3.5) IS PATIENT ON ANTICOAGULANTS? YLIST ANTICOAGULANTS COUMADINBASIC METABOLIC [id number] 06:48:00* Test Item Value Reference Range Interpretation Comments SODIUM (test code = NA) 136 mmol/L 136-145 N POTASSIUM (test code = K) 5.4 mmol/L 3.5-5.1 H CHLORIDE (test code = CL) 98.0 mmol/L 98-107 N CARBON DIOXIDE (test code = CO2) 26.0 mmol/L 21-32 N ANION GAP (test code = GAP) 17.4 10-20 N GLUCOSE (test code = GLU) 158 mg/dL 74-106 H BLOOD UREA NITROGEN (test code = BUN) 31 mg/dL 7-18 H GLOMERULAR FILTRATION RATE (test code = GFR) 9 mL/min >=60 Estimated GFR by using Modified MDRD formula.Chronic kidney disease is defined as either kidney damageor GFR <60 mL/min/1.73 m2 for >3 months. CREATININE (test code = CREAT) 4.90 mg/dL 0.55-1.02 H Note change in reference range due to change in reagent. BUN/CREATININE RATIO (test code = BUN/CREA) 6.3 10-20 L CALCIUM (test code = CA) 7.6 mg/dL 8.5-10.1 L [id number] 06:48:00* Test Item Value Reference Range Interpretation Comments MAGNESIUM (test code = MAG) 1.8 mg/dL 1.8-2.4 N CBC W/AUTO [id number] 06:47:00* Test Item Value Reference Range Interpretation Comments WHITE BLOOD CELL (test code = WBC) 9.0 K/mm3 4.5-12.5 N RED BLOOD CELL (test code = RBC) 3.82 mill/mm3 3.7-5.2 N HEMOGLOBIN (test code = HGB) 9.9 gram/dL 11.5-15.5 L HEMATOCRIT (test code = HCT) 33.4 % 36.0-46.0 L MEAN CELL VOLUME (test code = MCV) 87.4 fL 80-98 N MEAN CELL HGB (test code = MCH) 25.9 picogram 27.0-33.0 L MEAN CELL HGB CONCETRATION (test code = MCHC) 29.6 gram/dL 33.0-36. 0 L RED CELL DISTRIBUTION WIDTH (test code = RDW) 16.2 % 11.6-16. 2 N RED CELL DISTRIBUTION WIDTH SD (test code = RDW-SD) 51.7 fL 37 .0-51.0 H PLATELET COUNT (test code = PLT) 215 K/mm3 150-450 N MEAN PLATELET VOLUME (test code = MPV) 10.0 fL 6.7-11.0 N NEUTROPHIL % (test code = NT%) 80.9 % 39.0-69.0 H IMMATURE GRANULOCYTE % (test code = IG%) 0.3 % 0.0-5.0 N LYMPHOCYTE % (test code = LY%) 10.7 % 25.0-55.0 L MONOCYTE % (test code = MO%) 5.2 % 0.0-10.0 N EOSINOPHIL % (test code = EO%) 2.3 % 0.0-5.0 N BASOPHIL % (test code = BA%) 0.6 % 0.0-1.0 N NUCLEATED RBC % (test code = NRBC%) 0.0 % 0-0 N NEUTROPHIL # (test code = NT#) 7.28 K/mm3 1.8-7.7 N IMMATURE GRANULOCYTE # (test code = IG#) 0.03 x10 3/uL 0-0.03 N LYMPHOCYTE # (test code = LY#) 0.96 K/mm3 1.0-5.0 L MONOCYTE # (test code = MO#) 0.47 K/mm3 0-0.8 N EOSINOPHIL # (test code = EO#) 0.21 K/mm3 0.0-0.5 N BASOPHIL # (test code = BA#) 0.05 K/mm3 0.0-0.2 N NUCLEATED RBC # (test code = NRBC#) 0.00 K/mm3 0.0-0.1 N MANUAL DIFF REQUIRED (test code = MDIFF) NO, ONLY SCAN NEEDED DIFFERENTIAL [id number] 06:47:00* Test Item Value Reference Range Interpretation Comments STAIN ACCEPTABILITY (test code = STN ACCEPTABLE) CABOT RINGS (test code = CAB) MORPHOLOGY COMMENT (test code = MOC) PLATELET ESTIMATE (test code = PLTEST) PLATELET MORPHOLOGY (test code = PLTMORPH) CBC W/AUTO [id number] 06:47:00* Test Item Value Reference Range Interpretation Comments WHITE BLOOD CELL (test code = WBC) 9.0 K/mm3 4.5-12.5 N RED BLOOD CELL (test code = RBC) 3.82 mill/mm3 3.7-5.2 N HEMOGLOBIN (test code = HGB) 9.9 gram/dL 11.5-15.5 L HEMATOCRIT (test code = HCT) 33.4 % 36.0-46.0 L MEAN CELL VOLUME (test code = MCV) 87.4 fL 80-98 N MEAN CELL HGB (test code = MCH) 25.9 picogram 27.0-33.0 L MEAN CELL HGB CONCETRATION (test code = MCHC) 29.6 gram/dL 33.0-36. 0 L RED CELL DISTRIBUTION WIDTH (test code = RDW) 16.2 % 11.6-16. 2 N RED CELL DISTRIBUTION WIDTH SD (test code = RDW-SD) 51.7 fL 37 .0-51.0 H PLATELET COUNT (test code = PLT) 215 K/mm3 150-450 N MEAN PLATELET VOLUME (test code = MPV) 10.0 fL 6.7-11.0 N NEUTROPHIL % (test code = NT%) 80.9 % 39.0-69.0 H IMMATURE GRANULOCYTE % (test code = IG%) 0.3 % 0.0-5.0 N LYMPHOCYTE % (test code = LY%) 10.7 % 25.0-55.0 L MONOCYTE % (test code = MO%) 5.2 % 0.0-10.0 N EOSINOPHIL % (test code = EO%) 2.3 % 0.0-5.0 N BASOPHIL % (test code = BA%) 0.6 % 0.0-1.0 N NUCLEATED RBC % (test code = NRBC%) 0.0 % 0-0 N NEUTROPHIL # (test code = NT#) 7.28 K/mm3 1.8-7.7 N IMMATURE GRANULOCYTE # (test code = IG#) 0.03 x10 3/uL 0-0.03 N LYMPHOCYTE # (test code = LY#) 0.96 K/mm3 1.0-5.0 L MONOCYTE # (test code = MO#) 0.47 K/mm3 0-0.8 N EOSINOPHIL # (test code = EO#) 0.21 K/mm3 0.0-0.5 N BASOPHIL # (test code = BA#) 0.05 K/mm3 0.0-0.2 N NUCLEATED RBC # (test code = NRBC#) 0.00 K/mm3 0.0-0.1 N MANUAL DIFF REQUIRED (test code = MDIFF) NO, ONLY SCAN NEEDED DIFFERENTIAL [id number] 06:47:00* Test Item Value Reference Range Interpretation Comments STAIN ACCEPTABILITY (test code = STN ACCEPTABLE) MORPHOLOGY COMMENT (test code = MOC) PLATELET ESTIMATE (test code = PLTEST) PLATELET MORPHOLOGY (test code = PLTMORPH) CBC W/AUTO [id number] 06:47:00* Test Item Value Reference Range Interpretation Comments WHITE BLOOD CELL (test code = WBC) 9.0 K/mm3 4.5-12.5 N RED BLOOD CELL (test code = RBC) 3.82 mill/mm3 3.7-5.2 N HEMOGLOBIN (test code = HGB) 9.9 gram/dL 11.5-15.5 L HEMATOCRIT (test code = HCT) 33.4 % 36.0-46.0 L MEAN CELL VOLUME (test code = MCV) 87.4 fL 80-98 N MEAN CELL HGB (test code = MCH) 25.9 picogram 27.0-33.0 L MEAN CELL HGB CONCETRATION (test code = MCHC) 29.6 gram/dL 33.0-36. 0 L RED CELL DISTRIBUTION WIDTH (test code = RDW) 16.2 % 11.6-16. 2 N RED CELL DISTRIBUTION WIDTH SD (test code = RDW-SD) 51.7 fL 37 .0-51.0 H PLATELET COUNT (test code = PLT) 215 K/mm3 150-450 N MEAN PLATELET VOLUME (test code = MPV) 10.0 fL 6.7-11.0 N NEUTROPHIL % (test code = NT%) 80.9 % 39.0-69.0 H IMMATURE GRANULOCYTE % (test code = IG%) 0.3 % 0.0-5.0 N LYMPHOCYTE % (test code = LY%) 10.7 % 25.0-55.0 L MONOCYTE % (test code = MO%) 5.2 % 0.0-10.0 N EOSINOPHIL % (test code = EO%) 2.3 % 0.0-5.0 N BASOPHIL % (test code = BA%) 0.6 % 0.0-1.0 N NUCLEATED RBC % (test code = NRBC%) 0.0 % 0-0 N NEUTROPHIL # (test code = NT#) 7.28 K/mm3 1.8-7.7 N IMMATURE GRANULOCYTE # (test code = IG#) 0.03 x10 3/uL 0-0.03 N LYMPHOCYTE # (test code = LY#) 0.96 K/mm3 1.0-5.0 L MONOCYTE # (test code = MO#) 0.47 K/mm3 0-0.8 N EOSINOPHIL # (test code = EO#) 0.21 K/mm3 0.0-0.5 N BASOPHIL # (test code = BA#) 0.05 K/mm3 0.0-0.2 N NUCLEATED RBC # (test code = NRBC#) 0.00 K/mm3 0.0-0.1 N MANUAL DIFF REQUIRED (test code = MDIFF) NO, ONLY SCAN NEEDED DIFFERENTIAL [id number] 06:47:00* Test Item Value Reference Range Interpretation Comments STAIN ACCEPTABILITY (test code = STN ACCEPTABLE) MORPHOLOGY COMMENT (test code = MOC) PLATELET ESTIMATE (test code = PLTEST) PLATELET MORPHOLOGY (test code = PLTMORPH) CBC W/AUTO [id number] 06:46:00* Test Item Value Reference Range Interpretation Comments WHITE BLOOD CELL (test code = WBC) 9.0 K/mm3 4.5-12.5 N RED BLOOD CELL (test code = RBC) 3.82 mill/mm3 3.7-5.2 N HEMOGLOBIN (test code = HGB) 9.9 gram/dL 11.5-15.5 L HEMATOCRIT (test code = HCT) 33.4 % 36.0-46.0 L MEAN CELL VOLUME (test code = MCV) 87.4 fL 80-98 N MEAN CELL HGB (test code = MCH) 25.9 picogram 27.0-33.0 L MEAN CELL HGB CONCETRATION (test code = MCHC) 29.6 gram/dL 33.0-36. 0 L RED CELL DISTRIBUTION WIDTH (test code = RDW) 16.2 % 11.6-16. 2 N RED CELL DISTRIBUTION WIDTH SD (test code = RDW-SD) 51.7 fL 37 .0-51.0 H PLATELET COUNT (test code = PLT) 215 K/mm3 150-450 N MEAN PLATELET VOLUME (test code = MPV) 10.0 fL 6.7-11.0 N NEUTROPHIL % (test code = NT%) 80.9 % 39.0-69.0 H IMMATURE GRANULOCYTE % (test code = IG%) 0.3 % 0.0-5.0 N LYMPHOCYTE % (test code = LY%) 10.7 % 25.0-55.0 L MONOCYTE % (test code = MO%) 5.2 % 0.0-10.0 N EOSINOPHIL % (test code = EO%) 2.3 % 0.0-5.0 N BASOPHIL % (test code = BA%) 0.6 % 0.0-1.0 N NUCLEATED RBC % (test code = NRBC%) 0.0 % 0-0 N NEUTROPHIL # (test code = NT#) 7.28 K/mm3 1.8-7.7 N IMMATURE GRANULOCYTE # (test code = IG#) 0.03 x10 3/uL 0-0.03 N LYMPHOCYTE # (test code = LY#) 0.96 K/mm3 1.0-5.0 L MONOCYTE # (test code = MO#) 0.47 K/mm3 0-0.8 N EOSINOPHIL # (test code = EO#) 0.21 K/mm3 0.0-0.5 N BASOPHIL # (test code = BA#) 0.05 K/mm3 0.0-0.2 N NUCLEATED RBC # (test code = NRBC#) 0.00 K/mm3 0.0-0.1 N MANUAL DIFF REQUIRED (test code = MDIFF) NO, ONLY SCAN NEEDED DIFFERENTIAL [id number] 06:46:00* Test Item Value Reference Range Interpretation Comments STAIN ACCEPTABILITY (test code = STN ACCEPTABLE) CABOT RINGS (test code = CAB) MORPHOLOGY COMMENT (test code = MOC) PLATELET ESTIMATE (test code = PLTEST) PLATELET MORPHOLOGY (test code = PLTMORPH) BASIC METABOLIC [id number] 06:44:00* Test Item Value Reference Range Interpretation Comments SODIUM (test code = NA) 136 mmol/L 136-145 N POTASSIUM (test code = K) 5.4 mmol/L 3.5-5.1 H CHLORIDE (test code = CL) 98.0 mmol/L 98-107 N CARBON DIOXIDE (test code = CO2) mmol/L 21-32 ANION GAP (test code = GAP) 10-20 GLUCOSE (test code = GLU) mg/dL 74-106 BLOOD UREA NITROGEN (test code = BUN) mg/dL 7-18 GLOMERULAR FILTRATION RATE (test code = GFR) mL/min >=60 CREATININE (test code = CREAT) mg/dL 0.55-1.02 BUN/CREATININE RATIO (test code = BUN/CREA) 10-20 CALCIUM (test code = CA) mg/dL 8.5-10.1 [id number] 06:44:00* Test Item Value Reference Range Interpretation Comments MAGNESIUM (test code = MAG) mg/dL 1.8-2.4 [id number] 05:08:00* Test Item Value Reference Range Interpretation Comments GLUBED (test code = GLUBED) 159 mg/dL 74-106 H Performed by certified call center operator at [facility] [id number] 20:34:00* Test Item Value Reference Range Interpretation Comments GLUBED (test code = GLUBED) 141 mg/dL 74-106 H Performed by certified call center operator at [facility] [id number] 17:13:00* Test Item Value Reference Range Interpretation Comments GLUBED (test code = GLUBED) 252 mg/dL 74-106 H Performed by certified call center operator at [facility] [id number] 12:17:00* Test Item Value Reference Range Interpretation Comments GLUBED (test code = GLUBED) 210 mg/dL 74-106 H Performed by certified call center operator at [facility] [id number] 08:19:00* Test Item Value Reference Range Interpretation Comments GLUBED (test code = GLUBED) 158 mg/dL 74-106 H Performed by certified call center operator at [facility] [id number] 08:19:00* Test Item Value Reference Range Interpretation Comments GLUBED (test code = GLUBED) 183 mg/dL 74-106 H Performed by certified call center operator at [facility] [id number] 08:19:00* Test Item Value Reference Range Interpretation Comments GLUBED (test code = GLUBED) 167 mg/dL 74-106 H Performed by certified call center operator at [facility] [id number] 08:18:00* Test Item Value Reference Range Interpretation Comments GLUBED (test code = GLUBED) 221 mg/dL 74-106 H Performed by certified call center operator at [facility] BASIC METABOLIC [id number] 07:29:00* Test Item Value Reference Range Interpretation Comments SODIUM (test code = NA) 134 mmol/L 136-145 L POTASSIUM (test code = K) 5.2 mmol/L 3.5-5.1 H CHLORIDE (test code = CL) 95.0 mmol/L 98-107 L CARBON DIOXIDE (test code = CO2) 26.0 mmol/L 21-32 N ANION GAP (test code = GAP) 18.2 10-20 N GLUCOSE (test code = GLU) 210 mg/dL 74-106 H BLOOD UREA NITROGEN (test code = BUN) 39 mg/dL 7-18 H GLOMERULAR FILTRATION RATE (test code = GFR) 7 mL/min >=60 Estimated GFR by using Modified MDRD formula.Chronic kidney disease is defined as either kidney damageor GFR <60 mL/min/1.73 m2 for >3 months. CREATININE (test code = CREAT) 6.20 mg/dL 0.55-1.02 H Note change in reference range due to change in reagent. BUN/CREATININE RATIO (test code = BUN/CREA) 6.3 10-20 L CALCIUM (test code = CA) 7.8 mg/dL 8.5-10.1 L LIPID PROFILE (CORONARY RISK)2018-12-14 07:29:00* Test Item Value Reference Range Interpretation Comments TRIGLYCERIDES (test code = TRIG) 70 mg/dL 20-150 N CHOLESTEROL (test code = CHOL) 99 mg/dL 0-200 N CHOLESTEROL/HDL RATIO (test code = CHOLHDL) 1.0 RATIO 0-4.9 N RISK ASSOCIATED WITH CHOL/HDL RATIOS: Risk Male Female1/2 AVERAGE 3.43 3.27AVERAGE 4.97 4.442X AVERAGE 9.55 7.053X AVERAGE 23.39 11.04 REFERENCE VALUE IS RELATED TO RISK LEVELS ASRECOMMENDED BY THE [facility]. HEART, LUNG, AND BLOOD INST. HDL CHOLESTEROL (test code = HDL) 52 mg/dL 40-60 N LIPOPROTEIN LDL (test code = LDL) 39 mg/dL 100-129 L Reference Interval: mg/dL mmol/L Optimal <100 <2.6Near/above optimal 100-129 2.6- 3.3Borderline High 130-159 3.4-4.1High 160-189 4.1-4.9Very High >=190 >=4.9========= This LDL result is a direct measurement.========= [id number] 07:29:00* Test Item Value Reference Range Interpretation Comments PHOSPHORUS (test code = PHOS) 4.0 mg/dL 2.5-4.9 N [id number] 07:29:00* Test Item Value Reference Range Interpretation Comments MAGNESIUM (test code = MAG) 2.0 mg/dL 1.8-2.4 N T4 [id number] 07:29:00* Test Item Value Reference Range Interpretation Comments T4 FREE (test code = T4F) 1.30 ng/dL 0.76-1.46 N THYROID STIMULATING [id number] 07:29:00* Test Item Value Reference Range Interpretation Comments THYROID STIMULATING HORMONE (test code = TSH) 1.180 uIU/mL 0.36-3.7 4 N TSH REFERENCE RANGES: EUTHYROID: 0.35 - 4.3 mIU/mL HYPO : > 5.5 mIU/mL HYPER : < 0.35 mIU/mL B-TYPE NATRIURETIC [id number] 07:01:00* Test Item Value Reference Range Interpretation Comments B-TYPE NATRIURETIC PEPTIDE (test code = BNP) 2114.37 pgram/mL 0-100 H BASIC METABOLIC [id number] 06:57:00* Test Item Value Reference Range Interpretation Comments SODIUM (test code = NA) 134 mmol/L 136-145 L POTASSIUM (test code = K) 5.2 mmol/L 3.5-5.1 H CHLORIDE (test code = CL) 95.0 mmol/L 98-107 L CARBON DIOXIDE (test code = CO2) 26.0 mmol/L 21-32 N ANION GAP (test code = GAP) 18.2 10-20 N GLUCOSE (test code = GLU) 210 mg/dL 74-106 H BLOOD UREA NITROGEN (test code = BUN) 39 mg/dL 7-18 H GLOMERULAR FILTRATION RATE (test code = GFR) 7 mL/min >=60 Estimated GFR by using Modified MDRD formula.Chronic kidney disease is defined as either kidney damageor GFR <60 mL/min/1.73 m2 for >3 months. CREATININE (test code = CREAT) 6.20 mg/dL 0.55-1.02 H Note change in reference range due to change in reagent. BUN/CREATININE RATIO (test code = BUN/CREA) 6.3 10-20 L CALCIUM (test code = CA) 7.8 mg/dL 8.5-10.1 L LIPID PROFILE (CORONARY RISK)2018-12-14 06:57:00* Test Item Value Reference Range Interpretation Comments TRIGLYCERIDES (test code = TRIG) 70 mg/dL 20-150 N CHOLESTEROL (test code = CHOL) 99 mg/dL 0-200 N CHOLESTEROL/HDL RATIO (test code = CHOLHDL) 1.0 RATIO 0-4.9 N RISK ASSOCIATED WITH CHOL/HDL RATIOS: Risk Male Female1/2 AVERAGE 3.43 3.27AVERAGE 4.97 4.442X AVERAGE 9.55 7.053X AVERAGE 23.39 11.04 REFERENCE VALUE IS RELATED TO RISK LEVELS ASRECOMMENDED BY THE [facility]. HEART, LUNG, AND BLOOD INST. HDL CHOLESTEROL (test code = HDL) 52 mg/dL 40-60 N LIPOPROTEIN LDL (test code = LDL) 39 mg/dL 100-129 L Reference Interval: mg/dL mmol/L Optimal <100 <2.6Near/above optimal 100-129 2.6- 3.3Borderline High 130-159 3.4-4.1High 160-189 4.1-4.9Very High >=190 >=4.9========= This LDL result is a direct measurement.========= [id number] 06:57:00* Test Item Value Reference Range Interpretation Comments PHOSPHORUS (test code = PHOS) 4.0 mg/dL 2.5-4.9 N [id number] 06:57:00* Test Item Value Reference Range Interpretation Comments MAGNESIUM (test code = MAG) 2.0 mg/dL 1.8-2.4 N T4 [id number] 06:57:00* Test Item Value Reference Range Interpretation Comments T4 FREE (test code = T4F) 1.30 ng/dL 0.76-1.46 N THYROID STIMULATING [id number] 06:57:00* Test Item Value Reference Range Interpretation Comments THYROID STIMULATING HORMONE (test code = TSH) uIU/mL 0.36-3.7 4 BASIC METABOLIC [id number] 06:35:00* Test Item Value Reference Range Interpretation Comments SODIUM (test code = NA) 134 mmol/L 136-145 L POTASSIUM (test code = K) 5.2 mmol/L 3.5-5.1 H CHLORIDE (test code = CL) 95.0 mmol/L 98-107 L CARBON DIOXIDE (test code = CO2) mmol/L 21-32 ANION GAP (test code = GAP) 10-20 GLUCOSE (test code = GLU) mg/dL 74-106 BLOOD UREA NITROGEN (test code = BUN) mg/dL 7-18 GLOMERULAR FILTRATION RATE (test code = GFR) mL/min >=60 CREATININE (test code = CREAT) mg/dL 0.55-1.02 BUN/CREATININE RATIO (test code = BUN/CREA) 10-20 CALCIUM (test code = CA) mg/dL 8.5-10.1 LIPID PROFILE (CORONARY RISK)2018-12-14 06:35:00* Test Item Value Reference Range Interpretation Comments TRIGLYCERIDES (test code = TRIG) mg/dL 20-150 CHOLESTEROL (test code = CHOL) mg/dL 0-200 CHOLESTEROL/HDL RATIO (test code = CHOLHDL) RATIO 0-4.9 HDL CHOLESTEROL (test code = HDL) mg/dL 40-60 LIPOPROTEIN LDL (test code = LDL) mg/dL 100-129 [id number] 06:35:00* Test Item Value Reference Range Interpretation Comments PHOSPHORUS (test code = PHOS) mg/dL 2.5-4.9 [id number] 06:35:00* Test Item Value Reference Range Interpretation Comments MAGNESIUM (test code = MAG) mg/dL 1.8-2.4 T4 [id number] 06:35:00* Test Item Value Reference Range Interpretation Comments T4 FREE (test code = T4F) ng/dL 0.76-1.46 THYROID STIMULATING [id number] 06:35:00* Test Item Value Reference Range Interpretation Comments THYROID STIMULATING HORMONE (test code = TSH) uIU/mL 0.36-3.7 4 [id number] 06:11:00* Test Item Value Reference Range Interpretation Comments GLYCOSYLATED HEMOGLOBIN (HA1C) (test code = GLYHGB) 7.0 % HbA1 4. 8-6.0 H ESTIMATED AVERAGE GLUCOSE (test code = EAG) 154 MG/DL CBC W/AUTO [id number] 06:11:00* Test Item Value Reference Range Interpretation Comments WHITE BLOOD CELL (test code = WBC) 9.4 K/mm3 4.5-12.5 N RED BLOOD CELL (test code = RBC) 3.73 mill/mm3 3.7-5.2 N HEMOGLOBIN (test code = HGB) 9.8 gram/dL 11.5-15.5 L HEMATOCRIT (test code = HCT) 33.4 % 36.0-46.0 L MEAN CELL VOLUME (test code = MCV) 89.5 fL 80-98 N MEAN CELL HGB (test code = MCH) 26.3 picogram 27.0-33.0 L MEAN CELL HGB CONCETRATION (test code = MCHC) 29.3 gram/dL 33.0-36. 0 L RED CELL DISTRIBUTION WIDTH (test code = RDW) 16.2 % 11.6-16. 2 N RED CELL DISTRIBUTION WIDTH SD (test code = RDW-SD) 53.3 fL 37 .0-51.0 H PLATELET COUNT (test code = PLT) 189 K/mm3 150-450 N MEAN PLATELET VOLUME (test code = MPV) 10.0 fL 6.7-11.0 N NEUTROPHIL % (test code = NT%) 83.4 % 39.0-69.0 H IMMATURE GRANULOCYTE % (test code = IG%) 0.4 % 0.0-5.0 N LYMPHOCYTE % (test code = LY%) 7.6 % 25.0-55.0 L MONOCYTE % (test code = MO%) 5.1 % 0.0-10.0 N EOSINOPHIL % (test code = EO%) 3.0 % 0.0-5.0 N BASOPHIL % (test code = BA%) 0.5 % 0.0-1.0 N NUCLEATED RBC % (test code = NRBC%) 0.0 % 0-0 N NEUTROPHIL # (test code = NT#) 7.84 K/mm3 1.8-7.7 H IMMATURE GRANULOCYTE # (test code = IG#) 0.04 x10 3/uL 0-0.03 H LYMPHOCYTE # (test code = LY#) 0.71 K/mm3 1.0-5.0 L MONOCYTE # (test code = MO#) 0.48 K/mm3 0-0.8 N EOSINOPHIL # (test code = EO#) 0.28 K/mm3 0.0-0.5 N BASOPHIL # (test code = BA#) 0.05 K/mm3 0.0-0.2 N NUCLEATED RBC # (test code = NRBC#) 0.00 K/mm3 0.0-0.1 N MANUAL DIFF REQUIRED (test code = MDIFF) NO, ONLY SCAN NEEDED DIFFERENTIAL [id number] 06:11:00* Test Item Value Reference Range Interpretation Comments STAIN ACCEPTABILITY (test code = STN ACCEPTABLE) STAIN ACCEPTABLE HYPOCHROMIA (test code = HYPO) 1+ ANISOCYTOSIS (test code = ANISO) 1+ MICROCYTOSIS (test code = MICR) 1+ PLATELET ESTIMATE (test code = PLTEST) ADEQUATE PLATELET MORPHOLOGY (test code = PLTMORPH) NORMAL PROTHROMBIN [id number] 05:56:00* Test Item Value Reference Range Interpretation Comments PROTHROMBIN TIME PATIENT (test code = PTP) 30.5 seconds 9.0-14.0 H INTERNATIONAL NORMAL RATIO (test code = INR) 2.6 0.8-1.2 H The therapeutic range for oral anticoagulant therapy formost indications is an international normalized ratio (INR)of between 2.0 and 3.0. The recommended therapeutic INRrange for various clinical situations is listed below: Clinical Situation INR range Pulmonary e mbolism treatment (2.0-3.0)Venous thrombosis treatmentVenous thrombosis prophylaxis (high risk surgery)Prevention of systemic embolism from: Acute myocardial infarction Valvular heart disease Atrial fibrillation Mechanical prosthetic heart valves (2.5-3.5) IS PATIENT ON ANTICOAGULANTS? YLIST ANTICOAGULANTS COUMADINCBC W/AUTO DIFF 2018-12-14 05:46:00* Test Item Value Reference Range Interpretation Comments WHITE BLOOD CELL (test code = WBC) 9.4 K/mm3 4.5-12.5 N RED BLOOD CELL (test code = RBC) 3.73 mill/mm3 3.7-5.2 N HEMOGLOBIN (test code = HGB) 9.8 gram/dL 11.5-15.5 L HEMATOCRIT (test code = HCT) 33.4 % 36.0-46.0 L MEAN CELL VOLUME (test code = MCV) 89.5 fL 80-98 N MEAN CELL HGB (test code = MCH) 26.3 picogram 27.0-33.0 L MEAN CELL HGB CONCETRATION (test code = MCHC) 29.3 gram/dL 33.0-36. 0 L RED CELL DISTRIBUTION WIDTH (test code = RDW) 16.2 % 11.6-16. 2 N RED CELL DISTRIBUTION WIDTH SD (test code = RDW-SD) 53.3 fL 37 .0-51.0 H PLATELET COUNT (test code = PLT) 189 K/mm3 150-450 N MEAN PLATELET VOLUME (test code = MPV) 10.0 fL 6.7-11.0 N NEUTROPHIL % (test code = NT%) 83.4 % 39.0-69.0 H IMMATURE GRANULOCYTE % (test code = IG%) 0.4 % 0.0-5.0 N LYMPHOCYTE % (test code = LY%) 7.6 % 25.0-55.0 L MONOCYTE % (test code = MO%) 5.1 % 0.0-10.0 N EOSINOPHIL % (test code = EO%) 3.0 % 0.0-5.0 N BASOPHIL % (test code = BA%) 0.5 % 0.0-1.0 N NUCLEATED RBC % (test code = NRBC%) 0.0 % 0-0 N NEUTROPHIL # (test code = NT#) 7.84 K/mm3 1.8-7.7 H IMMATURE GRANULOCYTE # (test code = IG#) 0.04 x10 3/uL 0-0.03 H LYMPHOCYTE # (test code = LY#) 0.71 K/mm3 1.0-5.0 L MONOCYTE # (test code = MO#) 0.48 K/mm3 0-0.8 N EOSINOPHIL # (test code = EO#) 0.28 K/mm3 0.0-0.5 N BASOPHIL # (test code = BA#) 0.05 K/mm3 0.0-0.2 N NUCLEATED RBC # (test code = NRBC#) 0.00 K/mm3 0.0-0.1 N MANUAL DIFF REQUIRED (test code = MDIFF) NO, ONLY SCAN NEEDED DIFFERENTIAL [id number] 05:46:00* Test Item Value Reference Range Interpretation Comments STAIN ACCEPTABILITY (test code = STN ACCEPTABLE) CABOT RINGS (test code = CAB) MORPHOLOGY COMMENT (test code = MOC) PLATELET ESTIMATE (test code = PLTEST) PLATELET MORPHOLOGY (test code = PLTMORPH) CBC W/AUTO [id number] 05:46:00* Test Item Value Reference Range Interpretation Comments WHITE BLOOD CELL (test code = WBC) 9.4 K/mm3 4.5-12.5 N RED BLOOD CELL (test code = RBC) 3.73 mill/mm3 3.7-5.2 N HEMOGLOBIN (test code = HGB) 9.8 gram/dL 11.5-15.5 L HEMATOCRIT (test code = HCT) 33.4 % 36.0-46.0 L MEAN CELL VOLUME (test code = MCV) 89.5 fL 80-98 N MEAN CELL HGB (test code = MCH) 26.3 picogram 27.0-33.0 L MEAN CELL HGB CONCETRATION (test code = MCHC) 29.3 gram/dL 33.0-36. 0 L RED CELL DISTRIBUTION WIDTH (test code = RDW) 16.2 % 11.6-16. 2 N RED CELL DISTRIBUTION WIDTH SD (test code = RDW-SD) 53.3 fL 37 .0-51.0 H PLATELET COUNT (test code = PLT) 189 K/mm3 150-450 N MEAN PLATELET VOLUME (test code = MPV) 10.0 fL 6.7-11.0 N NEUTROPHIL % (test code = NT%) 83.4 % 39.0-69.0 H IMMATURE GRANULOCYTE % (test code = IG%) 0.4 % 0.0-5.0 N LYMPHOCYTE % (test code = LY%) 7.6 % 25.0-55.0 L MONOCYTE % (test code = MO%) 5.1 % 0.0-10.0 N EOSINOPHIL % (test code = EO%) 3.0 % 0.0-5.0 N BASOPHIL % (test code = BA%) 0.5 % 0.0-1.0 N NUCLEATED RBC % (test code = NRBC%) 0.0 % 0-0 N NEUTROPHIL # (test code = NT#) 7.84 K/mm3 1.8-7.7 H IMMATURE GRANULOCYTE # (test code = IG#) 0.04 x10 3/uL 0-0.03 H LYMPHOCYTE # (test code = LY#) 0.71 K/mm3 1.0-5.0 L MONOCYTE # (test code = MO#) 0.48 K/mm3 0-0.8 N EOSINOPHIL # (test code = EO#) 0.28 K/mm3 0.0-0.5 N BASOPHIL # (test code = BA#) 0.05 K/mm3 0.0-0.2 N NUCLEATED RBC # (test code = NRBC#) 0.00 K/mm3 0.0-0.1 N MANUAL DIFF REQUIRED (test code = MDIFF) NO, ONLY SCAN NEEDED DIFFERENTIAL [id number] 05:46:00* Test Item Value Reference Range Interpretation Comments STAIN ACCEPTABILITY (test code = STN ACCEPTABLE) MORPHOLOGY COMMENT (test code = MOC) PLATELET ESTIMATE (test code = PLTEST) PLATELET MORPHOLOGY (test code = PLTMORPH) CBC W/AUTO [id number] 05:46:00* Test Item Value Reference Range Interpretation Comments WHITE BLOOD CELL (test code = WBC) 9.4 K/mm3 4.5-12.5 N RED BLOOD CELL (test code = RBC) 3.73 mill/mm3 3.7-5.2 N HEMOGLOBIN (test code = HGB) 9.8 gram/dL 11.5-15.5 L HEMATOCRIT (test code = HCT) 33.4 % 36.0-46.0 L MEAN CELL VOLUME (test code = MCV) 89.5 fL 80-98 N MEAN CELL HGB (test code = MCH) 26.3 picogram 27.0-33.0 L MEAN CELL HGB CONCETRATION (test code = MCHC) 29.3 gram/dL 33.0-36. 0 L RED CELL DISTRIBUTION WIDTH (test code = RDW) 16.2 % 11.6-16. 2 N RED CELL DISTRIBUTION WIDTH SD (test code = RDW-SD) 53.3 fL 37 .0-51.0 H PLATELET COUNT (test code = PLT) 189 K/mm3 150-450 N MEAN PLATELET VOLUME (test code = MPV) 10.0 fL 6.7-11.0 N NEUTROPHIL % (test code = NT%) 83.4 % 39.0-69.0 H IMMATURE GRANULOCYTE % (test code = IG%) 0.4 % 0.0-5.0 N LYMPHOCYTE % (test code = LY%) 7.6 % 25.0-55.0 L MONOCYTE % (test code = MO%) 5.1 % 0.0-10.0 N EOSINOPHIL % (test code = EO%) 3.0 % 0.0-5.0 N BASOPHIL % (test code = BA%) 0.5 % 0.0-1.0 N NUCLEATED RBC % (test code = NRBC%) 0.0 % 0-0 N NEUTROPHIL # (test code = NT#) 7.84 K/mm3 1.8-7.7 H IMMATURE GRANULOCYTE # (test code = IG#) 0.04 x10 3/uL 0-0.03 H LYMPHOCYTE # (test code = LY#) 0.71 K/mm3 1.0-5.0 L MONOCYTE # (test code = MO#) 0.48 K/mm3 0-0.8 N EOSINOPHIL # (test code = EO#) 0.28 K/mm3 0.0-0.5 N BASOPHIL # (test code = BA#) 0.05 K/mm3 0.0-0.2 N NUCLEATED RBC # (test code = NRBC#) 0.00 K/mm3 0.0-0.1 N MANUAL DIFF REQUIRED (test code = MDIFF) NO, ONLY SCAN NEEDED DIFFERENTIAL [id number] 05:46:00* Test Item Value Reference Range Interpretation Comments STAIN ACCEPTABILITY (test code = STN ACCEPTABLE) MORPHOLOGY COMMENT (test code = MOC) PLATELET ESTIMATE (test code = PLTEST) PLATELET MORPHOLOGY (test code = PLTMORPH) CBC W/AUTO [id number] 05:46:00* Test Item Value Reference Range Interpretation Comments WHITE BLOOD CELL (test code = WBC) 9.4 K/mm3 4.5-12.5 N RED BLOOD CELL (test code = RBC) 3.73 mill/mm3 3.7-5.2 N HEMOGLOBIN (test code = HGB) 9.8 gram/dL 11.5-15.5 L HEMATOCRIT (test code = HCT) 33.4 % 36.0-46.0 L MEAN CELL VOLUME (test code = MCV) 89.5 fL 80-98 N MEAN CELL HGB (test code = MCH) 26.3 picogram 27.0-33.0 L MEAN CELL HGB CONCETRATION (test code = MCHC) 29.3 gram/dL 33.0-36. 0 L RED CELL DISTRIBUTION WIDTH (test code = RDW) 16.2 % 11.6-16. 2 N RED CELL DISTRIBUTION WIDTH SD (test code = RDW-SD) 53.3 fL 37 .0-51.0 H PLATELET COUNT (test code = PLT) 189 K/mm3 150-450 N MEAN PLATELET VOLUME (test code = MPV) 10.0 fL 6.7-11.0 N NEUTROPHIL % (test code = NT%) 83.4 % 39.0-69.0 H IMMATURE GRANULOCYTE % (test code = IG%) 0.4 % 0.0-5.0 N LYMPHOCYTE % (test code = LY%) 7.6 % 25.0-55.0 L MONOCYTE % (test code = MO%) 5.1 % 0.0-10.0 N EOSINOPHIL % (test code = EO%) 3.0 % 0.0-5.0 N BASOPHIL % (test code = BA%) 0.5 % 0.0-1.0 N NUCLEATED RBC % (test code = NRBC%) 0.0 % 0-0 N NEUTROPHIL # (test code = NT#) 7.84 K/mm3 1.8-7.7 H IMMATURE GRANULOCYTE # (test code = IG#) 0.04 x10 3/uL 0-0.03 H LYMPHOCYTE # (test code = LY#) 0.71 K/mm3 1.0-5.0 L MONOCYTE # (test code = MO#) 0.48 K/mm3 0-0.8 N EOSINOPHIL # (test code = EO#) 0.28 K/mm3 0.0-0.5 N BASOPHIL # (test code = BA#) 0.05 K/mm3 0.0-0.2 N NUCLEATED RBC # (test code = NRBC#) 0.00 K/mm3 0.0-0.1 N MANUAL DIFF REQUIRED (test code = MDIFF) NO, ONLY SCAN NEEDED DIFFERENTIAL [id number] 05:46:00* Test Item Value Reference Range Interpretation Comments STAIN ACCEPTABILITY (test code = STN ACCEPTABLE) CABOT RINGS (test code = CAB) MORPHOLOGY COMMENT (test code = MOC) PLATELET ESTIMATE (test code = PLTEST) PLATELET MORPHOLOGY (test code = PLTMORPH) PROTHROMBIN [id number] 23:52:00* Test Item Value Reference Range Interpretation Comments PROTHROMBIN TIME PATIENT (test code = PTP) 34.0 seconds 9.0-14.0 H INTERNATIONAL NORMAL RATIO (test code = INR) 2.9 0.8-1.2 H The therapeutic range for oral anticoagulant therapy formost indications is an international normalized ratio (INR)of between 2.0 and 3.0. The recommended therapeutic INRrange for various clinical situations is listed below: Clinical Situation INR range Pulmonary e mbolism treatment (2.0-3.0)Venous thrombosis treatmentVenous thrombosis prophylaxis (high risk surgery)Prevention of systemic embolism from: Acute myocardial infarction Valvular heart disease Atrial fibrillation Mechanical prosthetic heart valves (2.5-3.5) IS PATIENT ON ANTICOAGULANTS? YLIST ANTICOAGULANTS [id number] 20:41:00* Test Item Value Reference Range Interpretation Comments GLUBED (test code = GLUBED) 145 mg/dL 74-106 H Performed by certified call center operator at [facility] PROTHROMBIN [id number] 19:01:00* Test Item Value Reference Range Interpretation Comments PROTHROMBIN TIME PATIENT (test code = PTP) 36.5 seconds 9.0-14.0 H INTERNATIONAL NORMAL RATIO (test code = INR) 3.1 0.8-1.2 H The therapeutic range for oral anticoagulant therapy formost indications is an international normalized ratio (INR)of between 2.0 and 3.0. The recommended therapeutic INRrange for various clinical situations is listed below: Clinical Situation INR range Pulmonary e mbolism treatment (2.0-3.0)Venous thrombosis treatmentVenous thrombosis prophylaxis (high risk surgery)Prevention of systemic embolism from: Acute myocardial infarction Valvular heart disease Atrial fibrillation Mechanical prosthetic heart valves (2.5-3.5) IS PATIENT ON ANTICOAGULANTS? YLIST ANTICOAGULANTS COUMADINAB HEPATITIS B [id number] 05:09:00* Test Item Value Reference Range Interpretation Comments AB HEPATITIS B SURFACE (test code = HBSAB) Non Reactive () Non Reactive: Inconsistent with immunity, less than 10 mIU/mL Reactive: Consistent with immunity, greater than 9.9 mIU/mLPerformed At: [facility] [id number] Kyle L MD Ph:[phone] [id number] 23:39:00* Test Item Value Reference Range Interpretation Comments GLUBED (test code = GLUBED) 112 mg/dL 74-106 H Performed by certified call center operator at [facility] [id number] 17:40:00* Test Item Value Reference Range Interpretation Comments GLUBED (test code = GLUBED) 217 mg/dL 74-106 H Performed by certified call center operator at [facility] BASIC METABOLIC [id number] 14:34:00* Test Item Value Reference Range Interpretation Comments SODIUM (test code = NA) 136 mmol/L 136-145 N POTASSIUM (test code = K) 4.6 mmol/L 3.5-5.1 RE SULT VERIFIED BY REPEAT ANALYSIS CHLORIDE (test code = CL) 95.0 mmol/L 98-107 L CARBON DIOXIDE (test code = CO2) 32.0 mmol/L 21-32 N ANION GAP (test code = GAP) 13.6 10-20 N GLUCOSE (test code = GLU) 232 mg/dL 74-106 H BLOOD UREA NITROGEN (test code = BUN) 17 mg/dL 7-18 RESULT VERIFIED BY REPEAT ANALYSIS GLOMERULAR FILTRATION RATE (test code = GFR) 12 mL/min >=60 Estimated GFR by using Modified MDRD formula.Chronic kidney disease is defined as either kidney damageor GFR <60 mL/min/1.73 m2 for >3 months. CREATININE (test code = CREAT) 3.80 mg/dL 0.55-1.02 H Note change in reference range due to change in reagent. BUN/CREATININE RATIO (test code = BUN/CREA) 4.5 10-20 L CALCIUM (test code = CA) 8.5 mg/dL 8.5-10.1 N CBC W/AUTO [id number] 13:37:00* Test Item Value Reference Range Interpretation Comments WHITE BLOOD CELL (test code = WBC) 8.4 K/mm3 4.5-12.5 N RED BLOOD CELL (test code = RBC) 3.86 mill/mm3 3.7-5.2 N HEMOGLOBIN (test code = HGB) 10.0 gram/dL 11.5-15.5 L HEMATOCRIT (test code = HCT) 34.1 % 36.0-46.0 L MEAN CELL VOLUME (test code = MCV) 88.3 fL 80-98 N MEAN CELL HGB (test code = MCH) 25.9 picogram 27.0-33.0 L MEAN CELL HGB CONCETRATION (test code = MCHC) 29.3 gram/dL 33.0-36. 0 L RED CELL DISTRIBUTION WIDTH (test code = RDW) 16.5 % 11.6-16. 2 H RED CELL DISTRIBUTION WIDTH SD (test code = RDW-SD) 53.2 fL 37 .0-51.0 H PLATELET COUNT (test code = PLT) 216 K/mm3 150-450 N MEAN PLATELET VOLUME (test code = MPV) 10.1 fL 6.7-11.0 N NEUTROPHIL % (test code = NT%) 77.1 % 39.0-69.0 H IMMATURE GRANULOCYTE % (test code = IG%) 0.2 % 0.0-5.0 N LYMPHOCYTE % (test code = LY%) 13.7 % 25.0-55.0 L MONOCYTE % (test code = MO%) 5.8 % 0.0-10.0 N EOSINOPHIL % (test code = EO%) 2.7 % 0.0-5.0 N BASOPHIL % (test code = BA%) 0.5 % 0.0-1.0 N NUCLEATED RBC % (test code = NRBC%) 0.0 % 0-0 N NEUTROPHIL # (test code = NT#) 6.49 K/mm3 1.8-7.7 N IMMATURE GRANULOCYTE # (test code = IG#) 0.02 x10 3/uL 0-0.03 N LYMPHOCYTE # (test code = LY#) 1.15 K/mm3 1.0-5.0 N MONOCYTE # (test code = MO#) 0.49 K/mm3 0-0.8 N EOSINOPHIL # (test code = EO#) 0.23 K/mm3 0.0-0.5 N BASOPHIL # (test code = BA#) 0.04 K/mm3 0.0-0.2 N NUCLEATED RBC # (test code = NRBC#) 0.00 K/mm3 0.0-0.1 N MANUAL DIFF REQUIRED (test code = MDIFF) NO, ONLY SCAN NEEDED DIFFERENTIAL [id number] 13:37:00* Test Item Value Reference Range Interpretation Comments STAIN ACCEPTABILITY (test code = STN ACCEPTABLE) STAIN ACCEPTABLE POLYCHROMASIA (test code = POLC) 1+ POIKILOCYTOSIS (test code = POIK) 1+ ANISOCYTOSIS (test code = ANISO) 1+ PLATELET ESTIMATE (test code = PLTEST) ADEQUATE PLATELET MORPHOLOGY (test code = PLTMORPH) NORMAL CBC W/AUTO [id number] 12:54:00* Test Item Value Reference Range Interpretation Comments WHITE BLOOD CELL (test code = WBC) 8.4 K/mm3 4.5-12.5 N RED BLOOD CELL (test code = RBC) 3.86 mill/mm3 3.7-5.2 N HEMOGLOBIN (test code = HGB) 10.0 gram/dL 11.5-15.5 L HEMATOCRIT (test code = HCT) 34.1 % 36.0-46.0 L MEAN CELL VOLUME (test code = MCV) 88.3 fL 80-98 N MEAN CELL HGB (test code = MCH) 25.9 picogram 27.0-33.0 L MEAN CELL HGB CONCETRATION (test code = MCHC) 29.3 gram/dL 33.0-36. 0 L RED CELL DISTRIBUTION WIDTH (test code = RDW) 16.5 % 11.6-16. 2 H RED CELL DISTRIBUTION WIDTH SD (test code = RDW-SD) 53.2 fL 37 .0-51.0 H PLATELET COUNT (test code = PLT) 216 K/mm3 150-450 N MEAN PLATELET VOLUME (test code = MPV) 10.1 fL 6.7-11.0 N NEUTROPHIL % (test code = NT%) 77.1 % 39.0-69.0 H IMMATURE GRANULOCYTE % (test code = IG%) 0.2 % 0.0-5.0 N LYMPHOCYTE % (test code = LY%) 13.7 % 25.0-55.0 L MONOCYTE % (test code = MO%) 5.8 % 0.0-10.0 N EOSINOPHIL % (test code = EO%) 2.7 % 0.0-5.0 N BASOPHIL % (test code = BA%) 0.5 % 0.0-1.0 N NUCLEATED RBC % (test code = NRBC%) 0.0 % 0-0 N NEUTROPHIL # (test code = NT#) 6.49 K/mm3 1.8-7.7 N IMMATURE GRANULOCYTE # (test code = IG#) 0.02 x10 3/uL 0-0.03 N LYMPHOCYTE # (test code = LY#) 1.15 K/mm3 1.0-5.0 N MONOCYTE # (test code = MO#) 0.49 K/mm3 0-0.8 N EOSINOPHIL # (test code = EO#) 0.23 K/mm3 0.0-0.5 N BASOPHIL # (test code = BA#) 0.04 K/mm3 0.0-0.2 N NUCLEATED RBC # (test code = NRBC#) 0.00 K/mm3 0.0-0.1 N MANUAL DIFF REQUIRED (test code = MDIFF) NO, ONLY SCAN NEEDED DIFFERENTIAL [id number] 12:54:00* Test Item Value Reference Range Interpretation Comments STAIN ACCEPTABILITY (test code = STN ACCEPTABLE) CABOT RINGS (test code = CAB) MORPHOLOGY COMMENT (test code = MOC) PLATELET ESTIMATE (test code = PLTEST) PLATELET MORPHOLOGY (test code = PLTMORPH) CBC W/AUTO [id number] 12:54:00* Test Item Value Reference Range Interpretation Comments WHITE BLOOD CELL (test code = WBC) 8.4 K/mm3 4.5-12.5 N RED BLOOD CELL (test code = RBC) 3.86 mill/mm3 3.7-5.2 N HEMOGLOBIN (test code = HGB) 10.0 gram/dL 11.5-15.5 L HEMATOCRIT (test code = HCT) 34.1 % 36.0-46.0 L MEAN CELL VOLUME (test code = MCV) 88.3 fL 80-98 N MEAN CELL HGB (test code = MCH) 25.9 picogram 27.0-33.0 L MEAN CELL HGB CONCETRATION (test code = MCHC) 29.3 gram/dL 33.0-36. 0 L RED CELL DISTRIBUTION WIDTH (test code = RDW) 16.5 % 11.6-16. 2 H RED CELL DISTRIBUTION WIDTH SD (test code = RDW-SD) 53.2 fL 37 .0-51.0 H PLATELET COUNT (test code = PLT) 216 K/mm3 150-450 N MEAN PLATELET VOLUME (test code = MPV) 10.1 fL 6.7-11.0 N NEUTROPHIL % (test code = NT%) 77.1 % 39.0-69.0 H IMMATURE GRANULOCYTE % (test code = IG%) 0.2 % 0.0-5.0 N LYMPHOCYTE % (test code = LY%) 13.7 % 25.0-55.0 L MONOCYTE % (test code = MO%) 5.8 % 0.0-10.0 N EOSINOPHIL % (test code = EO%) 2.7 % 0.0-5.0 N BASOPHIL % (test code = BA%) 0.5 % 0.0-1.0 N NUCLEATED RBC % (test code = NRBC%) 0.0 % 0-0 N NEUTROPHIL # (test code = NT#) 6.49 K/mm3 1.8-7.7 N IMMATURE GRANULOCYTE # (test code = IG#) 0.02 x10 3/uL 0-0.03 N LYMPHOCYTE # (test code = LY#) 1.15 K/mm3 1.0-5.0 N MONOCYTE # (test code = MO#) 0.49 K/mm3 0-0.8 N EOSINOPHIL # (test code = EO#) 0.23 K/mm3 0.0-0.5 N BASOPHIL # (test code = BA#) 0.04 K/mm3 0.0-0.2 N NUCLEATED RBC # (test code = NRBC#) 0.00 K/mm3 0.0-0.1 N MANUAL DIFF REQUIRED (test code = MDIFF) NO, ONLY SCAN NEEDED DIFFERENTIAL [id number] 12:54:00* Test Item Value Reference Range Interpretation Comments STAIN ACCEPTABILITY (test code = STN ACCEPTABLE) CABOT RINGS (test code = CAB) MORPHOLOGY COMMENT (test code = MOC) PLATELET ESTIMATE (test code = PLTEST) PLATELET MORPHOLOGY (test code = PLTMORPH) CBC W/AUTO [id number] 12:54:00* Test Item Value Reference Range Interpretation Comments WHITE BLOOD CELL (test code = WBC) 8.4 K/mm3 4.5-12.5 N RED BLOOD CELL (test code = RBC) 3.86 mill/mm3 3.7-5.2 N HEMOGLOBIN (test code = HGB) 10.0 gram/dL 11.5-15.5 L HEMATOCRIT (test code = HCT) 34.1 % 36.0-46.0 L MEAN CELL VOLUME (test code = MCV) 88.3 fL 80-98 N MEAN CELL HGB (test code = MCH) 25.9 picogram 27.0-33.0 L MEAN CELL HGB CONCETRATION (test code = MCHC) 29.3 gram/dL 33.0-36. 0 L RED CELL DISTRIBUTION WIDTH (test code = RDW) 16.5 % 11.6-16. 2 H RED CELL DISTRIBUTION WIDTH SD (test code = RDW-SD) 53.2 fL 37 .0-51.0 H PLATELET COUNT (test code = PLT) 216 K/mm3 150-450 N MEAN PLATELET VOLUME (test code = MPV) 10.1 fL 6.7-11.0 N NEUTROPHIL % (test code = NT%) 77.1 % 39.0-69.0 H IMMATURE GRANULOCYTE % (test code = IG%) 0.2 % 0.0-5.0 N LYMPHOCYTE % (test code = LY%) 13.7 % 25.0-55.0 L MONOCYTE % (test code = MO%) 5.8 % 0.0-10.0 N EOSINOPHIL % (test code = EO%) 2.7 % 0.0-5.0 N BASOPHIL % (test code = BA%) 0.5 % 0.0-1.0 N NUCLEATED RBC % (test code = NRBC%) 0.0 % 0-0 N NEUTROPHIL # (test code = NT#) 6.49 K/mm3 1.8-7.7 N IMMATURE GRANULOCYTE # (test code = IG#) 0.02 x10 3/uL 0-0.03 N LYMPHOCYTE # (test code = LY#) 1.15 K/mm3 1.0-5.0 N MONOCYTE # (test code = MO#) 0.49 K/mm3 0-0.8 N EOSINOPHIL # (test code = EO#) 0.23 K/mm3 0.0-0.5 N BASOPHIL # (test code = BA#) 0.04 K/mm3 0.0-0.2 N NUCLEATED RBC # (test code = NRBC#) 0.00 K/mm3 0.0-0.1 N MANUAL DIFF REQUIRED (test code = MDIFF) NO, ONLY SCAN NEEDED DIFFERENTIAL [id number] 12:54:00* Test Item Value Reference Range Interpretation Comments STAIN ACCEPTABILITY (test code = STN ACCEPTABLE) MORPHOLOGY COMMENT (test code = MOC) PLATELET ESTIMATE (test code = PLTEST) PLATELET MORPHOLOGY (test code = PLTMORPH) CBC W/AUTO [id number] 12:54:00* Test Item Value Reference Range Interpretation Comments WHITE BLOOD CELL (test code = WBC) 8.4 K/mm3 4.5-12.5 N RED BLOOD CELL (test code = RBC) 3.86 mill/mm3 3.7-5.2 N HEMOGLOBIN (test code = HGB) 10.0 gram/dL 11.5-15.5 L HEMATOCRIT (test code = HCT) 34.1 % 36.0-46.0 L MEAN CELL VOLUME (test code = MCV) 88.3 fL 80-98 N MEAN CELL HGB (test code = MCH) 25.9 picogram 27.0-33.0 L MEAN CELL HGB CONCETRATION (test code = MCHC) 29.3 gram/dL 33.0-36. 0 L RED CELL DISTRIBUTION WIDTH (test code = RDW) 16.5 % 11.6-16. 2 H RED CELL DISTRIBUTION WIDTH SD (test code = RDW-SD) 53.2 fL 37 .0-51.0 H PLATELET COUNT (test code = PLT) 216 K/mm3 150-450 N MEAN PLATELET VOLUME (test code = MPV) 10.1 fL 6.7-11.0 N NEUTROPHIL % (test code = NT%) 77.1 % 39.0-69.0 H IMMATURE GRANULOCYTE % (test code = IG%) 0.2 % 0.0-5.0 N LYMPHOCYTE % (test code = LY%) 13.7 % 25.0-55.0 L MONOCYTE % (test code = MO%) 5.8 % 0.0-10.0 N EOSINOPHIL % (test code = EO%) 2.7 % 0.0-5.0 N BASOPHIL % (test code = BA%) 0.5 % 0.0-1.0 N NUCLEATED RBC % (test code = NRBC%) 0.0 % 0-0 N NEUTROPHIL # (test code = NT#) 6.49 K/mm3 1.8-7.7 N IMMATURE GRANULOCYTE # (test code = IG#) 0.02 x10 3/uL 0-0.03 N LYMPHOCYTE # (test code = LY#) 1.15 K/mm3 1.0-5.0 N MONOCYTE # (test code = MO#) 0.49 K/mm3 0-0.8 N EOSINOPHIL # (test code = EO#) 0.23 K/mm3 0.0-0.5 N BASOPHIL # (test code = BA#) 0.04 K/mm3 0.0-0.2 N NUCLEATED RBC # (test code = NRBC#) 0.00 K/mm3 0.0-0.1 N MANUAL DIFF REQUIRED (test code = MDIFF) NO, ONLY SCAN NEEDED DIFFERENTIAL [id number] 12:54:00* Test Item Value Reference Range Interpretation Comments STAIN ACCEPTABILITY (test code = STN ACCEPTABLE) CABOT RINGS (test code = CAB) MORPHOLOGY COMMENT (test code = MOC) PLATELET ESTIMATE (test code = PLTEST) PLATELET MORPHOLOGY (test code = PLTMORPH) [id number] 12:52:00* Test Item Value Reference Range Interpretation Comments GLUBED (test code = GLUBED) 196 mg/dL 74-106 H Performed by certified call center operator at [facility] AG HEPAT B [id number] 12:11:00* Test Item Value Reference Range Interpretation Comments AG HEPAT B SURF (test code = HBSAG) Nonreactive Index Nonreactive [id number] 10:26:00* Test Item Value Reference Range Interpretation Comments GLUBED (test code = GLUBED) 222 mg/dL 74-106 H Performed by certified call center operator at [facility] [id number] 10:26:00* Test Item Value Reference Range Interpretation Comments GLUBED (test code = GLUBED) 77 mg/dL 74-106 N Performed by certified call center operator at [facility] BASIC METABOLIC [id number] 06:34:00* Test Item Value Reference Range Interpretation Comments SODIUM (test code = NA) 136 mmol/L 136-145 N POTASSIUM (test code = K) 6.0 mmol/L 3.5-5.1 H Re sults called to [id number] by [email or web address] 12/12/18 0631Critical results verified and read back by Nurse?Y CHLORIDE (test code = CL) 101.0 mmol/L 98-107 N CARBON DIOXIDE (test code = CO2) 22.0 mmol/L 21-32 N ANION GAP (test code = GAP) 19.0 10-20 N GLUCOSE (test code = GLU) 197 mg/dL 74-106 H BLOOD UREA NITROGEN (test code = BUN) 53 mg/dL 7-18 H GLOMERULAR FILTRATION RATE (test code = GFR) 6 mL/min >=60 Estimated GFR by using Modified MDRD formula.Chronic kidney disease is defined as either kidney damageor GFR <60 mL/min/1.73 m2 for >3 months. CREATININE (test code = CREAT) 7.00 mg/dL 0.55-1.02 H Note change in reference range due to change in reagent. BUN/CREATININE RATIO (test code = BUN/CREA) 7.5 10-20 L CALCIUM (test code = CA) 8.1 mg/dL 8.5-10.1 L CALCIUM [id number] 06:12:00* Test Item Value Reference Range Interpretation Comments CALCIUM IONIZED (test code = RON) 1.07 mmol/L 1.12-1.32 L BASIC METABOLIC [id number] 01:57:00* Test Item Value Reference Range Interpretation Comments SODIUM (test code = NA) 135 mmol/L 136-145 L POTASSIUM (test code = K) 6.1 mmol/L 3.5-5.1 H Re sults called to ADRIANA ([facility]); [id number] [facility] 12/12/18 0150Critical results verified and read back by Nurse? Y CHLORIDE (test code = CL) 98.0 mmol/L 98-107 N CARBON DIOXIDE (test code = CO2) 27.0 mmol/L 21-32 N ANION GAP (test code = GAP) 16.1 10-20 N GLUCOSE (test code = GLU) 107 mg/dL 74-106 H BLOOD UREA NITROGEN (test code = BUN) 47 mg/dL 7-18 H GLOMERULAR FILTRATION RATE (test code = GFR) 6 mL/min >=60 Estimated GFR by using Modified MDRD formula.Chronic kidney disease is defined as either kidney damageor GFR <60 mL/min/1.73 m2 for >3 months. CREATININE (test code = CREAT) 6.80 mg/dL 0.55-1.02 H Note change in reference range due to change in reagent. BUN/CREATININE RATIO (test code = BUN/CREA) 6.9 10-20 L CALCIUM (test code = CA) 7.9 mg/dL 8.5-10.1 L BASIC METABOLIC [id number] 01:50:00* Test Item Value Reference Range Interpretation Comments SODIUM (test code = NA) 135 mmol/L 136-145 L POTASSIUM (test code = K) 6.1 mmol/L 3.5-5.1 H Re sults called to ADRIANA ([employer].INGE 12/12/18 0150Critical results verified and read back by Nurse? Y CHLORIDE (test code = CL) 98.0 mmol/L 98-107 N CARBON DIOXIDE (test code = CO2) 27.0 mmol/L 21-32 N ANION GAP (test code = GAP) 16.1 10-20 N GLUCOSE (test code = GLU) 107 mg/dL 74-106 H BLOOD UREA NITROGEN (test code = BUN) 47 mg/dL 7-18 H GLOMERULAR FILTRATION RATE (test code = GFR) 6 mL/min >=60 Estimated GFR by using Modified MDRD formula.Chronic kidney disease is defined as either kidney damageor GFR <60 mL/min/1.73 m2 for >3 months. CREATININE (test code = CREAT) 6.80 mg/dL 0.55-1.02 H Note change in reference range due to change in reagent. BUN/CREATININE RATIO (test code = BUN/CREA) 6.9 10-20 L CALCIUM (test code = CA) 7.9 mg/dL 8.5-10.1 L BASIC METABOLIC [id number] 21:14:00* Test Item Value Reference Range Interpretation Comments SODIUM (test code = NA) 134 mmol/L 136-145 L POTASSIUM (test code = K) 6.8 mmol/L 3.5-5.1 Re sults called to [id number] by V.[facility].BERNICE 12/11/18 2104Critical results verified and read back by Nurse? Y CHLORIDE (test code = CL) 99.0 mmol/L 98-107 N CARBON DIOXIDE (test code = CO2) 24.0 mmol/L 21-32 N ANION GAP (test code = GAP) 17.8 10-20 N GLUCOSE (test code = GLU) 150 mg/dL 74-106 H BLOOD UREA NITROGEN (test code = BUN) 49 mg/dL 7-18 H GLOMERULAR FILTRATION RATE (test code = GFR) 6 mL/min >=60 Estimated GFR by using Modified MDRD formula.Chronic kidney disease is defined as either kidney damageor GFR <60 mL/min/1.73 m2 for >3 months. CREATININE (test code = CREAT) 6.70 mg/dL 0.55-1.02 H Note change in reference range due to change in reagent. BUN/CREATININE RATIO (test code = BUN/CREA) 7.4 10-20 L CALCIUM (test code = CA) 8.0 mg/dL 8.5-10.1 L HEPATIC FUNCTION [id number] 21:14:00* Test Item Value Reference Range Interpretation Comments TOTAL PROTEIN (test code = PROT) 7.7 gram/dL 6.4-8.2 N ALBUMIN (test code = ALB) 3.0 g/dL 3.4-5.0 L GLOBULIN (test code = GLOB) 4.7 gram/dL 2.7-4.2 H ALBUMIN/GLOBULIN RATIO (test code = A/G) 0.6 0.75-1.50 L BILIRUBIN TOTAL (test code = BILT) 0.30 mg/dL 0.0-1.0 N BILIRUBIN DIRECT (test code = BILD) 0.09 mg/dL 0.0-0.20 N SGOT/AST (test code = AST) 54 IUnit/L 15-37 H SGPT/ALT (test code = ALT) 68 IUnit/L 12-78 N ALKALINE PHOSPHATASE TOTAL (test code = ALKP) 181 IUnit/L 45-117 H Note change in reference range due to change in reagent. [id number] 21:14:00* Test Item Value Reference Range Interpretation Comments LIPASE (test code = LIP) 77 U/L 73.0-393.0 N [id number] 21:14:00* Test Item Value Reference Range Interpretation Comments TROPONIN-I (test code = TROPI) <0.015 ng/mL 0-0.045 N BASIC METABOLIC [id number] 21:05:00* Test Item Value Reference Range Interpretation Comments SODIUM (test code = NA) 134 mmol/L 136-145 L POTASSIUM (test code = K) 6.8 mmol/L 3.5-5.1 Re sults called to [id number] by V.[email or web address].AL 12/11/18 2104Critical results verified and read back by Nurse? Y CHLORIDE (test code = CL) 99.0 mmol/L 98-107 N CARBON DIOXIDE (test code = CO2) 24.0 mmol/L 21-32 N ANION GAP (test code = GAP) 17.8 10-20 N GLUCOSE (test code = GLU) 150 mg/dL 74-106 H BLOOD UREA NITROGEN (test code = BUN) 49 mg/dL 7-18 H GLOMERULAR FILTRATION RATE (test code = GFR) mL/min >=60 CREATININE (test code = CREAT) mg/dL 0.55-1.02 BUN/CREATININE RATIO (test code = BUN/CREA) 10-20 CALCIUM (test code = CA) 8.0 mg/dL 8.5-10.1 L HEPATIC FUNCTION [id number] 21:05:00* Test Item Value Reference Range Interpretation Comments TOTAL PROTEIN (test code = PROT) gram/dL 6.4-8.2 ALBUMIN (test code = ALB) 3.0 g/dL 3.4-5.0 L GLOBULIN (test code = GLOB) gram/dL 2.7-4.2 ALBUMIN/GLOBULIN RATIO (test code = A/G) 0.75-1.50 BILIRUBIN TOTAL (test code = BILT) mg/dL 0.0-1.0 BILIRUBIN DIRECT (test code = BILD) mg/dL 0.0-0.20 SGOT/AST (test code = AST) IUnit/L 15-37 SGPT/ALT (test code = ALT) IUnit/L 12-78 ALKALINE PHOSPHATASE TOTAL (test code = ALKP) IUnit/L 45-117 [id number] 21:05:00* Test Item Value Reference Range Interpretation Comments LIPASE (test code = LIP) 77 U/L 73.0-393.0 N [id number] 21:05:00* Test Item Value Reference Range Interpretation Comments TROPONIN-I (test code = TROPI) ng/mL 0-0.045 PROTHROMBIN [id number] 21:01:00* Test Item Value Reference Range Interpretation Comments PROTHROMBIN TIME PATIENT (test code = PTP) 64.5 seconds 9.0-14.0 H INTERNATIONAL NORMAL RATIO (test code = INR) 5.5 0.8-1.2 HH Results called to [id number] by [email or web address] 12/11/18 2101Critical results verified and read back by Nurse? YThe therapeutic range for oral anticoagulant therapy formost indications is an international normalized ratio (INR)of between 2.0 and 3.0. The recommended therapeutic INRrange for various clinical situations is listed below: Clinical Situatio n INR range Pulmonary embolism treatment (2.0-3.0)Venous thrombosis treatmentVenous thrombosis prophylaxis (high risk surgery)Prevention of systemic embolism from: Acute myocardial infarction Valvular heart disease Atrial fibrillation Mechanical prosthetic heart valves (2.5-3.5) IS PATIENT ON ANTICOAGULANTS? NTHROMBOPLASTIN TIME [id number] 21:01:00* Test Item Value Reference Range Interpretation Comments THROMBOPLASTIN TIME PARTIAL (test code = PTT) 61.4 seconds 25.0-36. 5 H IS PATIENT ON ANTICOAGULANTS? NCBC W/O [id number] 20:40:00* Test Item Value Reference Range Interpretation Comments WHITE BLOOD CELL (test code = WBC) K/mm3 4.5-12.5 RED BLOOD CELL (test code = RBC) mill/mm3 3.7-5.2 HEMOGLOBIN (test code = HGB) gram/dL 11.5-15.5 HEMATOCRIT (test code = HCT) 37.1 % 36.0-46.0 N MEAN CELL VOLUME (test code = MCV) fL 80-98 MEAN CELL HGB (test code = MCH) picogram 27.0-33.0 MEAN CELL HGB CONCETRATION (test code = MCHC) gram/dL 33.0-36. 0 RED CELL DISTRIBUTION WIDTH (test code = RDW) % 11.6-16. 2 PLATELET COUNT (test code = PLT) K/mm3 150-450 MEAN PLATELET VOLUME (test code = MPV) fL 6.7-11.0 CBC W/O [id number] 20:40:00* Test Item Value Reference Range Interpretation Comments WHITE BLOOD CELL (test code = WBC) 9.8 K/mm3 4.5-12.5 N RED BLOOD CELL (test code = RBC) 4.21 mill/mm3 3.7-5.2 N HEMOGLOBIN (test code = HGB) 11.0 gram/dL 11.5-15.5 L HEMATOCRIT (test code = HCT) 37.1 % 36.0-46.0 N MEAN CELL VOLUME (test code = MCV) 88.1 fL 80-98 N MEAN CELL HGB (test code = MCH) 26.1 picogram 27.0-33.0 L MEAN CELL HGB CONCETRATION (test code = MCHC) 29.6 gram/dL 33.0-36. 0 L RED CELL DISTRIBUTION WIDTH (test code = RDW) 16.5 % 11.6-16. 2 H PLATELET COUNT (test code = PLT) 215 K/mm3 150-450 N MEAN PLATELET VOLUME (test code = MPV) 9.7 fL 6.7-11.0 N - XR CHEST 1 [id number] 20:22:00 FAX: Alaina Ramos MD [phone] [place]: St: [facility] FAX: Torri Conti MD [phone] Name: ERIN SCHILLING [facility] : 1950 Age/S: 68/F [address] [facility] Unit #: [id number] Loc: [place] [address] Phys: Torri Conti MD Acct: [id number] Dis Date: Status: REG ER PHONE #: [phone] Exam Date: 12/11/20182012 FAX #: [phone] Reason: CHEST PAIN EXAMS: CPT CODE: [id number] XR CHEST 1 V [id number] REASON FOR EXAM: CHEST PAIN EXAM ORDER DATE: 12/11/2018 8:01 PM Ordering Torito: Torri Conti MD PROCEDURE: - XR CHEST 1 V COMPARISON: 11/25/2018 FINDINGS: Portable AP frontal view of the chest obtained at 8:13 PM shows clear lungs without evidence of consolidation. There is no evidence of effusion. The heart size is within normal limits. Pulmonary vasculatures are unremarkable. IMPRESSION: No active disease. at 2021 Reported and signed by: Miguel Macias M.D. CC: Alaina Alonzo; Torri Conti MD Technologist: Leigh Ann Ruelas) [facility] Date/Time/By: 12/11/2018 (2021) : By: [email or web address] Orig Print D/T: S: 12/11/2018 (2024) PAGE 1 Signed Report PROTHROMBIN [id number] 16:35:00* Test Item Value Reference Range Interpretation Comments PROTHROMBIN TIME PATIENT (test code = PTP) 24.3 seconds 9.0-14.0 H INTERNATIONAL NORMAL RATIO (test code = INR) 2.1 0.8-1.2 H The therapeutic range for oral anticoagulant therapy formost indications is an international normalized ratio (INR)of between 2.0 and 3.0. The recommended therapeutic INRrange for various clinical situations is listed below: Clinical Situation INR range Pulmonary e mbolism treatment (2.0-3.0)Venous thrombosis treatmentVenous thrombosis prophylaxis (high risk surgery)Prevention of systemic embolism from: Acute myocardial infarction Valvular heart disease Atrial fibrillation Mechanical prosthetic heart valves (2.5-3.5) BASIC METABOLIC [id number] 10:26:00* Test Item Value Reference Range Interpretation Comments SODIUM (test code = NA) 135 mmol/L 136-145 L POTASSIUM (test code = K) 5.9 mmol/L 3.5-5.1 H CHLORIDE (test code = CL) 100.0 mmol/L 98-107 N CARBON DIOXIDE (test code = CO2) 23.0 mmol/L 21-32 N ANION GAP (test code = GAP) 17.9 10-20 N GLUCOSE (test code = GLU) 259 mg/dL 74-106 H BLOOD UREA NITROGEN (test code = BUN) 68 mg/dL 7-18 H GLOMERULAR FILTRATION RATE (test code = GFR) 5 mL/min >=60 Estimated GFR by using Modified MDRD formula.Chronic kidney disease is defined as either kidney damageor GFR <60 mL/min/1.73 m2 for >3 months. CREATININE (test code = CREAT) 7.50 mg/dL 0.55-1.02 H Note change in reference range due to change in reagent. BUN/CREATININE RATIO (test code = BUN/CREA) 9.1 10-20 L CALCIUM (test code = CA) 7.6 mg/dL 8.5-10.1 L CBC W/AUTO [id number] 10:17:00* Test Item Value Reference Range Interpretation Comments WHITE BLOOD CELL (test code = WBC) 9.1 K/mm3 4.5-12.5 N RED BLOOD CELL (test code = RBC) 3.65 mill/mm3 3.7-5.2 L HEMOGLOBIN (test code = HGB) 9.8 gram/dL 11.5-15.5 L HEMATOCRIT (test code = HCT) 32.7 % 36.0-46.0 L MEAN CELL VOLUME (test code = MCV) 89.6 fL 80-98 N MEAN CELL HGB (test code = MCH) 26.8 picogram 27.0-33.0 L MEAN CELL HGB CONCETRATION (test code = MCHC) 30.0 gram/dL 33.0-36. 0 L RED CELL DISTRIBUTION WIDTH (test code = RDW) 15.2 % 11.6-16. 2 N RED CELL DISTRIBUTION WIDTH SD (test code = RDW-SD) 49.4 fL 37 .0-51.0 N PLATELET COUNT (test code = PLT) 213 K/mm3 150-450 N MEAN PLATELET VOLUME (test code = MPV) 9.7 fL 6.7-11.0 N NEUTROPHIL % (test code = NT%) 79.6 % 39.0-69.0 H IMMATURE GRANULOCYTE % (test code = IG%) 0.6 % 0.0-5.0 N LYMPHOCYTE % (test code = LY%) 14.5 % 25.0-55.0 L MONOCYTE % (test code = MO%) 1.5 % 0.0-10.0 N EOSINOPHIL % (test code = EO%) 3.2 % 0.0-5.0 N BASOPHIL % (test code = BA%) 0.6 % 0.0-1.0 N NUCLEATED RBC % (test code = NRBC%) 0.0 % 0-0 N NEUTROPHIL # (test code = NT#) 7.21 K/mm3 1.8-7.7 N IMMATURE GRANULOCYTE # (test code = IG#) 0.05 x10 3/uL 0-0.03 H LYMPHOCYTE # (test code = LY#) 1.31 K/mm3 1.0-5.0 N MONOCYTE # (test code = MO#) 0.14 K/mm3 0-0.8 N EOSINOPHIL # (test code = EO#) 0.29 K/mm3 0.0-0.5 N BASOPHIL # (test code = BA#) 0.05 K/mm3 0.0-0.2 N NUCLEATED RBC # (test code = NRBC#) 0.00 K/mm3 0.0-0.1 N [id number] 05:41:00* Test Item Value Reference Range Interpretation Comments GLUBED (test code = GLUBED) 196 mg/dL 74-106 H Performed by certified call center operator at [facility] PROTHROMBIN [id number] 05:20:00* Test Item Value Reference Range Interpretation Comments PROTHROMBIN TIME PATIENT (test code = PTP) 18.5 seconds 9.0-14.0 H INTERNATIONAL NORMAL RATIO (test code = INR) 1.6 0.8-1.2 H The therapeutic range for oral anticoagulant therapy formost indications is an international normalized ratio (INR)of between 2.0 and 3.0. The recommended therapeutic INRrange for various clinical situations is listed below: Clinical Situation INR range Pulmonary e mbolism treatment (2.0-3.0)Venous thrombosis treatmentVenous thrombosis prophylaxis (high risk surgery)Prevention of systemic embolism from: Acute myocardial infarction Valvular heart disease Atrial fibrillation Mechanical prosthetic heart valves (2.5-3.5) IS PATIENT ON ANTICOAGULANTS? YLIST ANTICOAGULANTS [id number] 02:55:00* Test Item Value Reference Range Interpretation Comments GLUBED (test code = GLUBED) 176 mg/dL 74-106 H Performed by certified call center operator at [facility] [id number] 20:25:00* Test Item Value Reference Range Interpretation Comments GLUBED (test code = GLUBED) 207 mg/dL 74-106 H Performed by certified call center operator at [facility] [id number] 17:11:00* Test Item Value Reference Range Interpretation Comments GLUBED (test code = GLUBED) 189 mg/dL 74-106 H Performed by certified call center operator at [facility] [id number] 13:10:00* Test Item Value Reference Range Interpretation Comments GLUBED (test code = GLUBED) 254 mg/dL 74-106 H Performed by certified call center operator at [facility] [id number] 06:14:00* Test Item Value Reference Range Interpretation Comments GLUBED (test code = GLUBED) 179 mg/dL 74-106 H Performed by certified call center operator at [facility] PROTHROMBIN [id number] 05:31:00* Test Item Value Reference Range Interpretation Comments PROTHROMBIN TIME PATIENT (test code = PTP) 14.5 seconds 9.0-14.0 H INTERNATIONAL NORMAL RATIO (test code = INR) 1.2 0.8-1.2 N The therapeutic range for oral anticoagulant therapy formost indications is an international normalized ratio (INR)of between 2.0 and 3.0. The recommended therapeutic INRrange for various clinical situations is listed below: Clinical Situation INR range Pulmonary e mbolism treatment (2.0-3.0)Venous thrombosis treatmentVenous thrombosis prophylaxis (high risk surgery)Prevention of systemic embolism from: Acute myocardial infarction Valvular heart disease Atrial fibrillation Mechanical prosthetic heart valves (2.5-3.5) IS PATIENT ON ANTICOAGULANTS? YLIST ANTICOAGULANTS [id number] 21:43:00* Test Item Value Reference Range Interpretation Comments GLUBED (test code = GLUBED) 235 mg/dL 74-106 H Performed by certified call center operator at [facility] [id number] 16:47:00* Test Item Value Reference Range Interpretation Comments GLUBED (test code = GLUBED) 125 mg/dL 74-106 H Performed by certified call center operator at [facility] - MRI BRAIN W/O [id number] 16:30:00 FAX: Alaina Ramos MD [phone] [place]: St: [facility] FAX: Tigre Rangel MD [phone] Name: ERIN SCHILLING [facility] : 1950 Age/S: 68/F [address] [facility] Unit #: [id number] Loc: V.[address] [place] [address] Phys: Tigre Rangel MD Acct: [id number] Dis Date: Status: ADM IN PHONE #: [phone] Exam Date: 11/26/2018 1526 FAX #: [phone] Reason: weak dizzy ataxia, h/o afib EXAMS: CPT CODE: [id number] MRI BRAIN W/O CONTRAST 12759 HISTORY: weak dizzy ataxia, h/o afib TECHNIQUE: S agittal T1, axial FLAIR, axial T2, axial gradient T2, axial T1, coronal T2 , and DWI/ADC sequences of the brain were acquired. Examination acquired w ithin 24 hours of arrival. COMPARISON: Head CT 11/25/18 FINDINGS: No evidence of acute ischemic insult. Mild perivent ricular chronic microvascular ischemic changes. No intracranial hemorrhage . No intracranial mass or mass effect. Mild global parenchymal atrophy wit h ex vacuo dilation of the ventricular system. No hydrocephalus. Pi tuitary gland and corpus callosum are normal in appearance. No extra-axial fluid collections. Normal vascular flow-voids are identified. Bilateral l ens implants. Paranasal sinuses are clear. Calvarial and skull base marrow signal is preserved. IMPRESSION: No acute in farct or other acute intracranial process. at 1630 Reported and signed by: Barbara Loja D.O. CC: Alaina Alonzo; Tigre Rangel MD Technologist: [facility]LA NYERT [facility] Date/Time/By: 11/26/2018 (2472) : By: [email or web address] Orig Print D/T: S: 11/26/2018 (2330) PAGE 1 Signed Report PROTHROMBIN [id number] 16:20:00 * Test Item Value Reference Range Interpretation Comments PROTHROMBIN TIME PATIENT (test code = PTP) 13.4 seconds 9.0-14.0 N INTERNATIONAL NORMAL RATIO (test code = INR) 1.1 0.8-1.2 N The therapeutic range for oral anticoagulant therapy formost indications is an international normalized ratio (INR)of between 2.0 and 3.0. The recommended therapeutic INRrange for various clinical situations is listed below: Clinical Situation INR range Pulmonary e mbolism treatment (2.0-3.0)Venous thrombosis treatmentVenous thrombosis prophylaxis (high risk surgery)Prevention of systemic embolism from: Acute myocardial infarction Valvular heart disease Atrial fibrillation Mechanical prosthetic heart valves (2.5-3.5) IS PATIENT ON ANTICOAGULANTS? YLIST ANTICOAGULANTS COUMADINPHOSPHORUS 2018-11-26 12:50:00* Test Item Value Reference Range Interpretation Comments PHOSPHORUS (test code = PHOS) 4.3 mg/dL 2.5-4.9 N SPECIMEN COMMENTS: add to labs already done this a.m.[id number] 12:41:00* Test Item Value Reference Range Interpretation Comments GLUBED (test code = GLUBED) 267 mg/dL 74-106 H Performed by certified call center operator at [facility] [id number] 12:14:00* Test Item Value Reference Range Interpretation Comments TROPONIN-I (test code = TROPI) <0.015 ng/mL 0-0.045 N COMMENTS TO ANGLE SHEAR OPERATOR: COLLECT 3 HOURS AFTER PREVIOUS [id number] 08:51:00* Test Item Value Reference Range Interpretation Comments TROPONIN-I (test code = TROPI) <0.015 ng/mL 0-0.045 N COMMENTS TO ANGLE SHEAR OPERATOR: COLLECT 3 HOURS AFTER PREVIOUS [id number] 06:05:00* Test Item Value Reference Range Interpretation Comments GLUBED (test code = GLUBED) 208 mg/dL 74-106 H [facility]~ BASIC METABOLIC [id number] 00:36:00* Test Item Value Reference Range Interpretation Comments SODIUM (test code = NA) 135 mmol/L 136-145 L POTASSIUM (test code = K) 4.2 mmol/L 3.5-5.1 N CHLORIDE (test code = CL) 96.0 mmol/L 98-107 L CARBON DIOXIDE (test code = CO2) 31.0 mmol/L 21-32 N ANION GAP (test code = GAP) 12.2 10-20 N GLUCOSE (test code = GLU) 241 mg/dL 74-106 H BLOOD UREA NITROGEN (test code = BUN) 29 mg/dL 7-18 H GLOMERULAR FILTRATION RATE (test code = GFR) 12 mL/min >=60 Estimated GFR by using Modified MDRD formula.Chronic kidney disease is defined as either kidney damageor GFR <60 mL/min/1.73 m2 for >3 months. CREATININE (test code = CREAT) 3.80 mg/dL 0.55-1.02 H Note change in reference range due to change in reagent. BUN/CREATININE RATIO (test code = BUN/CREA) 7.6 10-20 L CALCIUM (test code = CA) 8.7 mg/dL 8.5-10.1 N [id number] 00:36:00* Test Item Value Reference Range Interpretation Comments TROPONIN-I (test code = TROPI) <0.015 ng/mL 0-0.045 N PROTHROMBIN [id number] 00:28:00* Test Item Value Reference Range Interpretation Comments PROTHROMBIN TIME PATIENT (test code = PTP) 13.6 seconds 9.0-14.0 N INTERNATIONAL NORMAL RATIO (test code = INR) 1.2 0.8-1.2 N The therapeutic range for oral anticoagulant therapy formost indications is an international normalized ratio (INR)of between 2.0 and 3.0. The recommended therapeutic INRrange for various clinical situations is listed below: Clinical Situation INR range Pulmonary e mbolism treatment (2.0-3.0)Venous thrombosis treatmentVenous thrombosis prophylaxis (high risk surgery)Prevention of systemic embolism from: Acute myocardial infarction Valvular heart disease Atrial fibrillation Mechanical prosthetic heart valves (2.5-3.5) IS PATIENT ON ANTICOAGULANTS? NTHROMBOPLASTIN TIME [id number] 00:28:00* Test Item Value Reference Range Interpretation Comments THROMBOPLASTIN TIME PARTIAL (test code = PTT) 37.4 seconds 25.0-36. 5 H IS PATIENT ON ANTICOAGULANTS? NBASIC METABOLIC [id number] 00:22:00* Test Item Value Reference Range Interpretation Comments SODIUM (test code = NA) 135 mmol/L 136-145 L POTASSIUM (test code = K) 4.2 mmol/L 3.5-5.1 N CHLORIDE (test code = CL) 96.0 mmol/L 98-107 L CARBON DIOXIDE (test code = CO2) mmol/L 21-32 ANION GAP (test code = GAP) 10-20 GLUCOSE (test code = GLU) mg/dL 74-106 BLOOD UREA NITROGEN (test code = BUN) mg/dL 7-18 GLOMERULAR FILTRATION RATE (test code = GFR) mL/min >=60 CREATININE (test code = CREAT) mg/dL 0.55-1.02 BUN/CREATININE RATIO (test code = BUN/CREA) 10-20 CALCIUM (test code = CA) mg/dL 8.5-10.1 [id number] 00:22:00* Test Item Value Reference Range Interpretation Comments TROPONIN-I (test code = TROPI) ng/mL 0-0.045 CBC W/O [id number] 00:11:00* Test Item Value Reference Range Interpretation Comments WHITE BLOOD CELL (test code = WBC) 9.0 K/mm3 4.5-12.5 N RED BLOOD CELL (test code = RBC) 3.81 mill/mm3 3.7-5.2 N HEMOGLOBIN (test code = HGB) 10.2 gram/dL 11.5-15.5 L HEMATOCRIT (test code = HCT) 35.2 % 36.0-46.0 L MEAN CELL VOLUME (test code = MCV) 92.4 fL 80-98 N MEAN CELL HGB (test code = MCH) 26.8 picogram 27.0-33.0 L MEAN CELL HGB CONCETRATION (test code = MCHC) 29.0 gram/dL 33.0-36. 0 L RED CELL DISTRIBUTION WIDTH (test code = RDW) 15.4 % 11.6-16. 2 N PLATELET COUNT (test code = PLT) 258 K/mm3 150-450 N MEAN PLATELET VOLUME (test code = MPV) 9.5 fL 6.7-11.0 N - CT HEAD/BRAIN W/O [id number] 23:51:00 Name: ERIN SCHILLING [facility] : 1950 Age/S: 68 / F [address] [facility] Unit #: [id number] Loc: [place] [address] Phys: Tigre Rangel MD Acct: [id number] Dis Date: Status: REG ER PHONE #: [phone] Exam Date: 11/25/2018 2330 FAX #: [phone] Reason: headache dizzy afib EXAMS: CPT CODE: [id number] CT HEAD/BRAIN W/O CONT [id number] EXAM: - CT HEAD/BRAIN W/O CONT LOCATION: C3 HISTORY: 68 years-year old Female with headache dizzy afib TECHNIQUE: Computerized tomography images from the skull base to the vertex were obtained. Coronal and sagittal reformatted images are provided. This exam was performed according to our departmental dose-optimization program, which includes automated exposure control, adjustment of the mA and/or kV according to patient size and/or use of iterative reconstruction technique COMPARISON: 09/17/2018 FINDINGS: Brain: The brain parenchymal architecture is unremarkable. There is moderate diffuse cerebral atrophy and periventricular/subcortical white matter hypodensities that likely represent sequelae of chronic microvascular ischemia. There is no evidence of an acute territorial infarct. Hemorrhage: There is no CT evidence of acute intracranial hemorrhage. Mass/edema: There is no CT evidence of mass effect, midline shift, or parenchymal edema. Ventricles: There is no evidence of hydrocephalus. Bones: There is no evidence of acute displaced calvarial fracture. Sinus es: The visualized portions of the paranasal sinuses and mastoid air cells are free of significant opacification. Other/Soft Tissues: Unrem arkable. IMPRESSION: 1. No CT evidence of acu te intracranial abnormality. PAGE 1 Signed Report (CONTINUED) Name: ERIN SCHILLING [facility] : 1950 Age/S: 68 / F [address] [facility] Unit #: [id number] Loc: [place], [place] [address] Phys: Tigre Rangel MD Acct: [id number] Dis Date: Status: REG ER PHONE #: [phone] Exam Date: 11/25/2018 2330 FAX #: [phone] Reason: headache dizzy afib EXAMS: CPT CODE: [id number] CT HEAD/BRAIN W/O CONT 23541 < Continued> at 2351 Reported and signed by: Ernie Lemon M.D. CC: Alaina Alonzo; Tigre Rangel MD Technologist:MAHESH Wiley ATMAR, RT CTDI: DLP: Trnscb Date/Time: 11/25/2018 (2351) [email or web address] Orig Print D/T: S: 11/25/2018 (6686) PAGE 2 Signed Report - XR CHEST 1 [id number] 23:38:00 FAX: Alaina Ramos MD [phone] [place]: St: [facility] FAX: Tigre Rangel MD [phone] Name: ERIN SCHILLING [facility] : 1950 Age/S: 68/F [address] [facility] Unit #: [id number] Loc: [place] [address] Phys: Tigre Rangel MD Acct: [id number] Dis Date: Status: REG ER PHONE #: [phone] Exam Date: 11/25/2018 2332 FAX #: [phone] Reason: WEAKNESS EXAMS: CPT CODE: [id number] XR CHEST 1 V [id number] Location: T 18 CHEST X-RAY: PA frontal projection, one view, 11/25/18 CLINICAL HISTORY: Weakness, ER presentation COMPARISON EXAMS: 11/14/18 chest x-ray exam FINDINGS: Heart, lungs, and mediastinal structures are within normal limits. No pneumonia or active CHF. No evolving pleural-based finding. IMPRESSION: No acute finding at 2338 Reported and signed by: Adriana Dick M.D. CC: Alaina Alonzo; Tigre Rangel MD Technologist: Jeremiah CHURCH(R) Trnscrd Date/Time/By: 11/25/2018 (0536) : By: [email or web address] Orig Print D/T: S: 11/25/2018 (0069) PAGE 1 Signed Report - XR CHEST 1 [id number] 05:43:00 FAX: Alaina Ramos MD [phone] [place]: St: REG FAX: Jeannette Elias DO Name: ERIN SCHILLING [facility] : 1950 Age/S: 68/F [address] [facility] Unit #: [id number] Loc: [place] [address] Phys: Jeannette Elias DO Acct: [id number] Dis Date: Status: REG ER PHONE #: [phone] Exam Date: 11/14/2018 0537 FAX #: [phone] Reason: CHEST PAIN EXAMS: CPT CODE: [id number] XR CHEST 1 V 00458 Dictation location: H37. CHEST, FRONTAL VIEW HISTORY: CHEST PAIN FINDINGS: Since 11/11/18, interstitial prominence likely related to pulmonary edema. The heart size is normal. The aorta is partially calcified. The bones are unremarkable. IMPRESSION: Mild pulmonary edema. at 0543 Reported and signed by: Irina Hernandez M.D. CC: Alaina Alonzo; Jeannette Elias DO Technologist: PIETRO TELLEZ JR Trnmerd Date/Time/By: 11/14/2018 (0543) : By: [email or web address] Orig Print D/T: S: 11/14/2018 (0547) PAGE 1 Signed Report BASIC METABOLIC [id number] 05:29:00* Test Item Value Reference Range Interpretation Comments SODIUM (test code = NA) 138 mmol/L 136-145 N POTASSIUM (test code = K) 5.3 mmol/L 3.5-5.1 H CHLORIDE (test code = CL) 102.0 mmol/L 98-107 N CARBON DIOXIDE (test code = CO2) 24.0 mmol/L 21-32 N ANION GAP (test code = GAP) 17.3 10-20 N GLUCOSE (test code = GLU) 165 mg/dL 74-106 H BLOOD UREA NITROGEN (test code = BUN) 39 mg/dL 7-18 H GLOMERULAR FILTRATION RATE (test code = GFR) 6 mL/min >=60 Estimated GFR by using Modified MDRD formula.Chronic kidney disease is defined as either kidney damageor GFR <60 mL/min/1.73 m2 for >3 months. CREATININE (test code = CREAT) 6.80 mg/dL 0.55-1.02 H Note change in reference range due to change in reagent. BUN/CREATININE RATIO (test code = BUN/CREA) 5.8 10-20 L CALCIUM (test code = CA) 8.8 mg/dL 8.5-10.1 N HEPATIC FUNCTION [id number] 05:29:00* Test Item Value Reference Range Interpretation Comments TOTAL PROTEIN (test code = PROT) 8.0 gram/dL 6.4-8.2 N ALBUMIN (test code = ALB) 2.9 g/dL 3.4-5.0 L GLOBULIN (test code = GLOB) 5.1 gram/dL 2.7-4.2 H ALBUMIN/GLOBULIN RATIO (test code = A/G) 0.6 0.75-1.50 L BILIRUBIN TOTAL (test code = BILT) 0.40 mg/dL 0.0-1.0 N BILIRUBIN DIRECT (test code = BILD) 0.09 mg/dL 0.0-0.20 N SGOT/AST (test code = AST) 13 IUnit/L 15-37 L SGPT/ALT (test code = ALT) 12 IUnit/L 12-78 N ALKALINE PHOSPHATASE TOTAL (test code = ALKP) 140 IUnit/L 45-117 H Note change in reference range due to change in reagent. [id number] 05:29:00* Test Item Value Reference Range Interpretation Comments LIPASE (test code = LIP) 63 U/L 73.0-393.0 L [id number] 05:29:00* Test Item Value Reference Range Interpretation Comments TROPONIN-I (test code = TROPI) <0.015 ng/mL 0-0.045 N PROTHROMBIN [id number] 05:22:00* Test Item Value Reference Range Interpretation Comments PROTHROMBIN TIME PATIENT (test code = PTP) 12.6 seconds 9.0-14.0 N INTERNATIONAL NORMAL RATIO (test code = INR) 1.1 0.8-1.2 N The therapeutic range for oral anticoagulant therapy formost indications is an international normalized ratio (INR)of between 2.0 and 3.0. The recommended therapeutic INRrange for various clinical situations is listed below: Clinical Situation INR range Pulmonary e mbolism treatment (2.0-3.0)Venous thrombosis treatmentVenous thrombosis prophylaxis (high risk surgery)Prevention of systemic embolism from: Acute myocardial infarction Valvular heart disease Atrial fibrillation Mechanical prosthetic heart valves (2.5-3.5) IS PATIENT ON ANTICOAGULANTS? NTHROMBOPLASTIN TIME [id number] 05:22:00* Test Item Value Reference Range Interpretation Comments THROMBOPLASTIN TIME PARTIAL (test code = PTT) 44.8 seconds 25.0-36. 5 H IS PATIENT ON ANTICOAGULANTS? NBASIC METABOLIC [id number] 05:17:00* Test Item Value Reference Range Interpretation Comments SODIUM (test code = NA) 138 mmol/L 136-145 N POTASSIUM (test code = K) 5.3 mmol/L 3.5-5.1 H CHLORIDE (test code = CL) 102.0 mmol/L 98-107 N CARBON DIOXIDE (test code = CO2) mmol/L 21-32 ANION GAP (test code = GAP) 10-20 GLUCOSE (test code = GLU) mg/dL 74-106 BLOOD UREA NITROGEN (test code = BUN) mg/dL 7-18 GLOMERULAR FILTRATION RATE (test code = GFR) mL/min >=60 CREATININE (test code = CREAT) mg/dL 0.55-1.02 BUN/CREATININE RATIO (test code = BUN/CREA) 10-20 CALCIUM (test code = CA) mg/dL 8.5-10.1 HEPATIC FUNCTION [id number] 05:17:00* Test Item Value Reference Range Interpretation Comments TOTAL PROTEIN (test code = PROT) gram/dL 6.4-8.2 ALBUMIN (test code = ALB) g/dL 3.4-5.0 GLOBULIN (test code = GLOB) gram/dL 2.7-4.2 ALBUMIN/GLOBULIN RATIO (test code = A/G) 0.75-1.50 BILIRUBIN TOTAL (test code = BILT) mg/dL 0.0-1.0 BILIRUBIN DIRECT (test code = BILD) mg/dL 0.0-0.20 SGOT/AST (test code = AST) IUnit/L 15-37 SGPT/ALT (test code = ALT) IUnit/L 12-78 ALKALINE PHOSPHATASE TOTAL (test code = ALKP) IUnit/L 45-117 [id number] 05:17:00* Test Item Value Reference Range Interpretation Comments LIPASE (test code = LIP) U/L 73.0-393.0 [id number] 05:17:00* Test Item Value Reference Range Interpretation Comments TROPONIN-I (test code = TROPI) ng/mL 0-0.045 CBC W/O [id number] 05:05:00* Test Item Value Reference Range Interpretation Comments WHITE BLOOD CELL (test code = WBC) 7.8 K/mm3 4.5-12.5 N RED BLOOD CELL (test code = RBC) 3.47 mill/mm3 3.7-5.2 L HEMOGLOBIN (test code = HGB) 9.8 gram/dL 11.5-15.5 L HEMATOCRIT (test code = HCT) 32.2 % 36.0-46.0 L MEAN CELL VOLUME (test code = MCV) 92.8 fL 80-98 N MEAN CELL HGB (test code = MCH) 28.2 picogram 27.0-33.0 N MEAN CELL HGB CONCETRATION (test code = MCHC) 30.4 gram/dL 33.0-36. 0 L RED CELL DISTRIBUTION WIDTH (test code = RDW) 15.6 % 11.6-16. 2 N PLATELET COUNT (test code = PLT) 236 K/mm3 150-450 N MEAN PLATELET VOLUME (test code = MPV) 9.7 fL 6.7-11.0 N [id number] 16:53:00* Test Item Value Reference Range Interpretation Comments GLUBED (test code = GLUBED) 202 mg/dL 74-106 H Performed by certified call center operator at [facility] PROTHROMBIN [id number] 12:45:00* Test Item Value Reference Range Interpretation Comments PROTHROMBIN TIME PATIENT (test code = PTP) 12.7 seconds 9.0-14.0 N INTERNATIONAL NORMAL RATIO (test code = INR) 1.1 0.8-1.2 N The therapeutic range for oral anticoagulant therapy formost indications is an international normalized ratio (INR)of between 2.0 and 3.0. The recommended therapeutic INRrange for various clinical situations is listed below: Clinical Situation INR range Pulmonary e mbolism treatment (2.0-3.0)Venous thrombosis treatmentVenous thrombosis prophylaxis (high risk surgery)Prevention of systemic embolism from: Acute myocardial infarction Valvular heart disease Atrial fibrillation Mechanical prosthetic heart valves (2.5-3.5) IS PATIENT ON ANTICOAGULANTS? YLIST ANTICOAGULANTS [id number] 12:21:00* Test Item Value Reference Range Interpretation Comments GLUBED (test code = GLUBED) 168 mg/dL 74-106 H Performed by certified call center operator at [facility] [id number] 08:41:00* Test Item Value Reference Range Interpretation Comments GLUBED (test code = GLUBED) 104 mg/dL 74-106 N Performed by certified call center operator at [facility] [id number] 08:25:00* Test Item Value Reference Range Interpretation Comments GLUBED (test code = GLUBED) 112 mg/dL 74-106 H Performed by certified call center operator at [facility] [id number] 21:24:00* Test Item Value Reference Range Interpretation Comments GLUBED (test code = GLUBED) 92 mg/dL 74-106 N [facility]~ [id number] 16:50:00* Test Item Value Reference Range Interpretation Comments GLUBED (test code = GLUBED) 189 mg/dL 74-106 H Performed by certified call center operator at [facility]2019-08-17 14:47:00* Test Item Value Reference Range Interpretation Comments GLUBED (test code = GLUBED) 172 mg/dL 74-106 H Performed by certified call center operator at [facility] [id number] 12:15:00* Test Item Value Reference Range Interpretation Comments GLUBED (test code = GLUBED) 141 mg/dL 74-106 H Performed by certified call center operator at [facility] [id number] 08:25:00* Test Item Value Reference Range Interpretation Comments GLUBED (test code = GLUBED) 147 mg/dL 74-106 H Performed by certified call center operator at [facility] PROTHROMBIN [id number] 06:09:00* Test Item Value Reference Range Interpretation Comments PROTHROMBIN TIME PATIENT (test code = PTP) 13.1 seconds 9.0-14.0 N INTERNATIONAL NORMAL RATIO (test code = INR) 1.1 0.8-1.2 N The therapeutic range for oral anticoagulant therapy formost indications is an international normalized ratio (INR)of between 2.0 and 3.0. The recommended therapeutic INRrange for various clinical situations is listed below: Clinical Situation INR range Pulmonary e mbolism treatment (2.0-3.0)Venous thrombosis treatmentVenous thrombosis prophylaxis (high risk surgery)Prevention of systemic embolism from: Acute myocardial infarction Valvular heart disease Atrial fibrillation Mechanical prosthetic heart valves (2.5-3.5) IS PATIENT ON ANTICOAGULANTS? YLIST ANTICOAGULANTS COUMADINTROPONIN-I 2018-11-11 20:42:00* Test Item Value Reference Range Interpretation Comments TROPONIN-I (test code = TROPI) <0.015 ng/mL 0-0.045 N [id number] 20:34:00* Test Item Value Reference Range Interpretation Comments GLUBED (test code = GLUBED) 136 mg/dL 74-106 H Performed by certified call center operator at [facility] [id number] 13:12:00* Test Item Value Reference Range Interpretation Comments GLUBED (test code = GLUBED) 191 mg/dL 74-106 H Performed by certified call center operator at [facility] [id number] 13:12:00* Test Item Value Reference Range Interpretation Comments GLUBED (test code = GLUBED) 94 mg/dL 74-106 N Performed by certified call center operator at [facility] - PULM VENT PERF [id number] 11:41:00 FAX: Alaina Ramos MD [phone] [place]: [address] St: ADM FAX: Tigre Rangel MD [phone] Name: ERIN SCHILLING [facility] : 1950 Age/S: 68/F [address] [facility] Unit #: [id number] Loc: [id number] [place] [address] Phys: Tigre Rangel MD Acct: [id number] Dis Date: Status: ADM IN PHONE #: [phone] Exam Date: 11/11/2018 1050 FAX #: [phone] Reason: shortness of breath, elev d-dimer EXAMS: CPT CODE: [id number] PULM VENT PERF IMAG 82134 HISTORY: shortness of breath, elev d-dimer EXAM: NUCLEAR PULMONARY V/Q SCAN. COMPARISON: No study for direct comp arison. Chest radiograph earlier today at 2:05 AM was reviewed. FINDINGS: Ventilation scan: After the patient was given 10 mCi Xenon 133 gas to inhale, posterior images were obtained of the lungs in immediate and washout phases. Homogenous tracer distribution in the right lung. There is decreased tracer distribution in the left lung compared to the right. Perfusion scan: After intravenous injection of 5 .5 mCi TC 99m MAA, static images were obtained over the lungs in multiple projections. Homogenous tracer uptake in the right lung. There is decrease d tracer uptake in the left lung compared to the right. Vent ilation and perfusion images are matched in the posterior projection. IMPRESSION: Modified PIOPED II category: Low proba bility of pulmonary embolus. at 1141 Reported and signed by: Jadiel Mijares MD CC: Alaina Alonzo; Tigre Rangel MD Technologist: Sara Sandy RT(N) Trnscrd Date/Time/By: 11/11/2018 (1141) : By: [email or web address] Orig Print D/T: S: 11/11/2018 (1073) PAGE 1 Signed Report [id number] 09:58:00* Test Item Value Reference Range Interpretation Comments TROPONIN-I (test code = TROPI) <0.015 ng/mL 0-0.045 N AG HEPAT B [id number] 08:55:00* Test Item Value Reference Range Interpretation Comments AG HEPAT B SURF (test code = HBSAG) Nonreactive Index Nonreactive BASIC METABOLIC [id number] 03:22:00* Test Item Value Reference Range Interpretation Comments SODIUM (test code = NA) 141 mmol/L 136-145 N POTASSIUM (test code = K) 4.8 mmol/L 3.5-5.1 N CHLORIDE (test code = CL) 100.0 mmol/L 98-107 N CARBON DIOXIDE (test code = CO2) 31.0 mmol/L 21-32 N ANION GAP (test code = GAP) 14.8 10-20 N GLUCOSE (test code = GLU) 116 mg/dL 74-106 H BLOOD UREA NITROGEN (test code = BUN) 31 mg/dL 7-18 H GLOMERULAR FILTRATION RATE (test code = GFR) 7 mL/min >=60 Estimated GFR by using Modified MDRD formula.Chronic kidney disease is defined as either kidney damageor GFR <60 mL/min/1.73 m2 for >3 months. CREATININE (test code = CREAT) 6.20 mg/dL 0.55-1.02 H Note change in reference range due to change in reagent. BUN/CREATININE RATIO (test code = BUN/CREA) 5.0 10-20 L CALCIUM (test code = CA) 8.4 mg/dL 8.5-10.1 L HEPATIC FUNCTION [id number] 03:22:00* Test Item Value Reference Range Interpretation Comments TOTAL PROTEIN (test code = PROT) 6.9 gram/dL 6.4-8.2 N ALBUMIN (test code = ALB) 2.8 g/dL 3.4-5.0 L GLOBULIN (test code = GLOB) 4.1 gram/dL 2.7-4.2 N ALBUMIN/GLOBULIN RATIO (test code = A/G) 0.7 0.75-1.50 L BILIRUBIN TOTAL (test code = BILT) 0.30 mg/dL 0.0-1.0 N BILIRUBIN DIRECT (test code = BILD) 0.07 mg/dL 0.0-0.20 N SGOT/AST (test code = AST) 18 IUnit/L 15-37 N SGPT/ALT (test code = ALT) 15 IUnit/L 12-78 N ALKALINE PHOSPHATASE TOTAL (test code = ALKP) 140 IUnit/L 45-117 H Note change in reference range due to change in reagent. [id number] 03:22:00* Test Item Value Reference Range Interpretation Comments LIPASE (test code = LIP) 65 U/L 73.0-393.0 L [id number] 03:22:00* Test Item Value Reference Range Interpretation Comments TROPONIN-I (test code = TROPI) <0.015 ng/mL 0-0.045 N PROTHROMBIN [id number] 03:16:00* Test Item Value Reference Range Interpretation Comments PROTHROMBIN TIME PATIENT (test code = PTP) 12.5 seconds 9.0-14.0 N INTERNATIONAL NORMAL RATIO (test code = INR) 1.1 0.8-1.2 N The therapeutic range for oral anticoagulant therapy formost indications is an international normalized ratio (INR)of between 2.0 and 3.0. The recommended therapeutic INRrange for various clinical situations is listed below: Clinical Situation INR range Pulmonary e mbolism treatment (2.0-3.0)Venous thrombosis treatmentVenous thrombosis prophylaxis (high risk surgery)Prevention of systemic embolism from: Acute myocardial infarction Valvular heart disease Atrial fibrillation Mechanical prosthetic heart valves (2.5-3.5) IS PATIENT ON ANTICOAGULANTS? NTHROMBOPLASTIN TIME [id number] 03:16:00* Test Item Value Reference Range Interpretation Comments THROMBOPLASTIN TIME PARTIAL (test code = PTT) 37.8 seconds 25.0-36. 5 H IS PATIENT ON ANTICOAGULANTS? [id number] 03:16:00* Test Item Value Reference Range Interpretation Comments D-DIMER (test code = DDIMER) 986.00 ng/mLFEU 0-500 HH Results called to [id number] by [email or web address] 11/11/18 0314Critical results verified and read back by Nurse? YClinical Cut-off value for D-Dimer is 500 ng/mL FEU. Comment: The [employer] D- Dimer assay is intended for use asan aid in the diagnosis of venous thromboembolism (VTE)[deep vein thrombosis (DVT) or pulmonary embolism (PE)].The measurement of D-Dimer should not be used as an aid inthe diagnosis of VTE, in patient with: -Therapeutic dose anticoagulant therapy for >24 hours - Fibrinolytic therapy within previous 7 days -Trauma or surgery within previous 4 weeks -Disseminated malignancies -Aortic aneurysm -Sepsis, severe infections, pneumonia, severe skin infections -Liver cirrhosis - IS PATIENT ON ANTICOAGULANTS? NBASIC METABOLIC [id number] 03:16:00* Test Item Value Reference Range Interpretation Comments SODIUM (test code = NA) 141 mmol/L 136-145 N POTASSIUM (test code = K) 4.8 mmol/L 3.5-5.1 N CHLORIDE (test code = CL) 100.0 mmol/L 98-107 N CARBON DIOXIDE (test code = CO2) 31.0 mmol/L 21-32 N ANION GAP (test code = GAP) 14.8 10-20 N GLUCOSE (test code = GLU) 116 mg/dL 74-106 H BLOOD UREA NITROGEN (test code = BUN) 31 mg/dL 7-18 H GLOMERULAR FILTRATION RATE (test code = GFR) 7 mL/min >=60 Estimated GFR by using Modified MDRD formula.Chronic kidney disease is defined as either kidney damageor GFR <60 mL/min/1.73 m2 for >3 months. CREATININE (test code = CREAT) 6.20 mg/dL 0.55-1.02 H Note change in reference range due to change in reagent. BUN/CREATININE RATIO (test code = BUN/CREA) 5.0 10-20 L CALCIUM (test code = CA) 8.4 mg/dL 8.5-10.1 L HEPATIC FUNCTION [id number] 03:16:00* Test Item Value Reference Range Interpretation Comments TOTAL PROTEIN (test code = PROT) 6.9 gram/dL 6.4-8.2 N ALBUMIN (test code = ALB) 2.8 g/dL 3.4-5.0 L GLOBULIN (test code = GLOB) 4.1 gram/dL 2.7-4.2 N ALBUMIN/GLOBULIN RATIO (test code = A/G) 0.7 0.75-1.50 L BILIRUBIN TOTAL (test code = BILT) 0.30 mg/dL 0.0-1.0 N BILIRUBIN DIRECT (test code = BILD) 0.07 mg/dL 0.0-0.20 N SGOT/AST (test code = AST) 18 IUnit/L 15-37 N SGPT/ALT (test code = ALT) 15 IUnit/L 12-78 N ALKALINE PHOSPHATASE TOTAL (test code = ALKP) 140 IUnit/L 45-117 H Note change in reference range due to change in reagent. [id number] 03:16:00* Test Item Value Reference Range Interpretation Comments LIPASE (test code = LIP) 65 U/L 73.0-393.0 L [id number] 03:16:00* Test Item Value Reference Range Interpretation Comments TROPONIN-I (test code = TROPI) ng/mL 0-0.045 BASIC METABOLIC [id number] 03:11:00* Test Item Value Reference Range Interpretation Comments SODIUM (test code = NA) 141 mmol/L 136-145 N POTASSIUM (test code = K) 4.8 mmol/L 3.5-5.1 N CHLORIDE (test code = CL) 100.0 mmol/L 98-107 N CARBON DIOXIDE (test code = CO2) mmol/L 21-32 ANION GAP (test code = GAP) 10-20 GLUCOSE (test code = GLU) mg/dL 74-106 BLOOD UREA NITROGEN (test code = BUN) mg/dL 7-18 GLOMERULAR FILTRATION RATE (test code = GFR) mL/min >=60 CREATININE (test code = CREAT) mg/dL 0.55-1.02 BUN/CREATININE RATIO (test code = BUN/CREA) 10-20 CALCIUM (test code = CA) mg/dL 8.5-10.1 HEPATIC FUNCTION [id number] 03:11:00* Test Item Value Reference Range Interpretation Comments TOTAL PROTEIN (test code = PROT) gram/dL 6.4-8.2 ALBUMIN (test code = ALB) g/dL 3.4-5.0 GLOBULIN (test code = GLOB) gram/dL 2.7-4.2 ALBUMIN/GLOBULIN RATIO (test code = A/G) 0.75-1.50 BILIRUBIN TOTAL (test code = BILT) mg/dL 0.0-1.0 BILIRUBIN DIRECT (test code = BILD) mg/dL 0.0-0.20 SGOT/AST (test code = AST) IUnit/L 15-37 SGPT/ALT (test code = ALT) IUnit/L 12-78 ALKALINE PHOSPHATASE TOTAL (test code = ALKP) IUnit/L 45-117 [id number] 03:11:00* Test Item Value Reference Range Interpretation Comments LIPASE (test code = LIP) U/L 73.0-393.0 [id number] 03:11:00* Test Item Value Reference Range Interpretation Comments TROPONIN-I (test code = TROPI) ng/mL 0-0.045 CBC W/O [id number] 03:02:00* Test Item Value Reference Range Interpretation Comments WHITE BLOOD CELL (test code = WBC) 9.0 K/mm3 4.5-12.5 N RED BLOOD CELL (test code = RBC) 3.45 mill/mm3 3.7-5.2 L HEMOGLOBIN (test code = HGB) 9.9 gram/dL 11.5-15.5 L HEMATOCRIT (test code = HCT) 32.2 % 36.0-46.0 L MEAN CELL VOLUME (test code = MCV) 93.3 fL 80-98 N MEAN CELL HGB (test code = MCH) 28.7 picogram 27.0-33.0 N MEAN CELL HGB CONCETRATION (test code = MCHC) 30.7 gram/dL 33.0-36. 0 L RED CELL DISTRIBUTION WIDTH (test code = RDW) 16.1 % 11.6-16. 2 N PLATELET COUNT (test code = PLT) 181 K/mm3 150-450 N MEAN PLATELET VOLUME (test code = MPV) 10.1 fL 6.7-11.0 N - XR CHEST 1 [id number] 02:28:00 FAX: Alaina Ramos MD [phone] [place]: [address] St: [facility] FAX: Tigre Rangel MD [phone] Name: ERIN SCHILLING [facility] : 1950 Age/S: 68/F [address] Unit #: [id number] Loc: [place] [address] Phys: Tigre Rangel MD Acct: [id number] Dis Date: Status: REG ER PHONE #: [phone] Exam Date: 11/11/2018217 FAX #: [phone] Reason: CHEST PAIN EXAMS: CPT CODE: [id number] XR CHEST 1 V 12024 DICTATION LOCATION: H48 HISTORY: Female, 68 years of age with CHEST PAIN EXAM: CHEST X-RAY, ONE VIEW COMPARISON: 09/11/2018 COMMENT: Frontal view is provided. Central vascular congestion and mild perihilar infiltrates are noted. No significant pleural fluid is seen. Heart is enlarged and calcific plaque is seen in the aorta. No acute bony abnormalities. IMPRESSION: Mild CHF. at 0228 Reported and signed by: Anny Alvarez MD CC: Alaina Alonzo; Tigre Rangel MD Technologist: Keyla Carter Trnmerd Date/Time/By: 11/11/2018 (0228) : By: Loly Orig Print D/T: S: 11/11/2018 (0232) PAGE 1 Signed Report [id number] 11:22:00* Test Item Value Reference Range Interpretation Comments GLUBED (test code = GLUBED) 118 mg/dL 74-106 H Performed by certified call center operator at [facility] PROTHROMBIN [id number] 08:36:00* Test Item Value Reference Range Interpretation Comments PROTHROMBIN TIME PATIENT (test code = PTP) 27.1 seconds 9.0-14.0 H INTERNATIONAL NORMAL RATIO (test code = INR) 2.3 0.8-1.2 H The therapeutic range for oral anticoagulant therapy formost indications is an international normalized ratio (INR)of between 2.0 and 3.0. The recommended therapeutic INRrange for various clinical situations is listed below: Clinical Situation INR range Pulmonary e mbolism treatment (2.0-3.0)Venous thrombosis treatmentVenous thrombosis prophylaxis (high risk surgery)Prevention of systemic embolism from: Acute myocardial infarction Valvular heart disease Atrial fibrillation Mechanical prosthetic heart valves (2.5-3.5) IS PATIENT ON ANTICOAGULANTS? YLIST ANTICOAGULANTS COUMADINCBC W/AUTO DIFF 2018-10-01 08:29:00* Test Item Value Reference Range Interpretation Comments WHITE BLOOD CELL (test code = WBC) 10.6 K/mm3 4.5-12.5 N RED BLOOD CELL (test code = RBC) 3.59 mill/mm3 3.7-5.2 L HEMOGLOBIN (test code = HGB) 10.2 gram/dL 11.5-15.5 L HEMATOCRIT (test code = HCT) 33.8 % 36.0-46.0 L MEAN CELL VOLUME (test code = MCV) 94.2 fL 80-98 N MEAN CELL HGB (test code = MCH) 28.4 picogram 27.0-33.0 N MEAN CELL HGB CONCETRATION (test code = MCHC) 30.2 gram/dL 33.0-36. 0 L RED CELL DISTRIBUTION WIDTH (test code = RDW) 14.6 % 11.6-16. 2 N RED CELL DISTRIBUTION WIDTH SD (test code = RDW-SD) 50.6 fL 37 .0-51.0 N PLATELET COUNT (test code = PLT) 329 K/mm3 150-450 N MEAN PLATELET VOLUME (test code = MPV) 8.8 fL 6.7-11.0 N NEUTROPHIL % (test code = NT%) 80.7 % 39.0-69.0 H IMMATURE GRANULOCYTE % (test code = IG%) 0.8 % 0.0-5.0 N LYMPHOCYTE % (test code = LY%) 8.9 % 25.0-55.0 L MONOCYTE % (test code = MO%) 6.0 % 0.0-10.0 N EOSINOPHIL % (test code = EO%) 3.0 % 0.0-5.0 N BASOPHIL % (test code = BA%) 0.6 % 0.0-1.0 N NUCLEATED RBC % (test code = NRBC%) 0.0 % 0-0 N NEUTROPHIL # (test code = NT#) 8.55 K/mm3 1.8-7.7 H IMMATURE GRANULOCYTE # (test code = IG#) 0.08 x10 3/uL 0-0.03 H LYMPHOCYTE # (test code = LY#) 0.94 K/mm3 1.0-5.0 L MONOCYTE # (test code = MO#) 0.64 K/mm3 0-0.8 N EOSINOPHIL # (test code = EO#) 0.32 K/mm3 0.0-0.5 N BASOPHIL # (test code = BA#) 0.06 K/mm3 0.0-0.2 N NUCLEATED RBC # (test code = NRBC#) 0.00 K/mm3 0.0-0.1 N [id number] 06:06:00* Test Item Value Reference Range Interpretation Comments GLUBED (test code = GLUBED) 164 mg/dL 74-106 H Performed by certified call center operator at [facility] [id number] 20:52:00* Test Item Value Reference Range Interpretation Comments GLUBED (test code = GLUBED) 144 mg/dL 74-106 H Performed by certified call center operator at [facility] CBC W/O [id number] 11:39:00* Test Item Value Reference Range Interpretation Comments WHITE BLOOD CELL (test code = WBC) 13.2 K/mm3 4.5-12.5 H RED BLOOD CELL (test code = RBC) 3.60 mill/mm3 3.7-5.2 L HEMOGLOBIN (test code = HGB) 10.2 gram/dL 11.5-15.5 L HEMATOCRIT (test code = HCT) 34.3 % 36.0-46.0 L MEAN CELL VOLUME (test code = MCV) 95.3 fL 80-98 N MEAN CELL HGB (test code = MCH) 28.3 picogram 27.0-33.0 N MEAN CELL HGB CONCETRATION (test code = MCHC) 29.7 gram/dL 33.0-36. 0 L RED CELL DISTRIBUTION WIDTH (test code = RDW) 14.6 % 11.6-16. 2 N PLATELET COUNT (test code = PLT) 349 K/mm3 150-450 N MEAN PLATELET VOLUME (test code = MPV) 9.1 fL 6.7-11.0 N ADD ONBASIC METABOLIC [id number] 11:34:00* Test Item Value Reference Range Interpretation Comments SODIUM (test code = NA) 135 mmol/L 136-145 L POTASSIUM (test code = K) 4.5 mmol/L 3.5-5.1 N CHLORIDE (test code = CL) 98.0 mmol/L 98-107 N CARBON DIOXIDE (test code = CO2) 29.0 mmol/L 21-32 N ANION GAP (test code = GAP) 12.5 10-20 N GLUCOSE (test code = GLU) 178 mg/dL 74-106 H BLOOD UREA NITROGEN (test code = BUN) 21 mg/dL 7-18 H GLOMERULAR FILTRATION RATE (test code = GFR) 7 mL/min >=60 Estimated GFR by using Modified MDRD formula.Chronic kidney disease is defined as either kidney damageor GFR <60 mL/min/1.73 m2 for >3 months. CREATININE (test code = CREAT) 6.20 mg/dL 0.55-1.02 H Note change in reference range due to change in reagent. BUN/CREATININE RATIO (test code = BUN/CREA) 3.4 10-20 L CALCIUM (test code = CA) 8.6 mg/dL 8.5-10.1 N [id number] 11:31:00* Test Item Value Reference Range Interpretation Comments GLUBED (test code = GLUBED) 160 mg/dL 74-106 H Performed by certified call center operator at [facility] BASIC METABOLIC [id number] 11:31:00* Test Item Value Reference Range Interpretation Comments SODIUM (test code = NA) 135 mmol/L 136-145 L POTASSIUM (test code = K) 4.5 mmol/L 3.5-5.1 N CHLORIDE (test code = CL) 98.0 mmol/L 98-107 N CARBON DIOXIDE (test code = CO2) mmol/L 21-32 ANION GAP (test code = GAP) 10-20 GLUCOSE (test code = GLU) mg/dL 74-106 BLOOD UREA NITROGEN (test code = BUN) mg/dL 7-18 GLOMERULAR FILTRATION RATE (test code = GFR) mL/min >=60 CREATININE (test code = CREAT) mg/dL 0.55-1.02 BUN/CREATININE RATIO (test code = BUN/CREA) 10-20 CALCIUM (test code = CA) mg/dL 8.5-10.1 PROTHROMBIN [id number] 07:55:00* Test Item Value Reference Range Interpretation Comments PROTHROMBIN TIME PATIENT (test code = PTP) 20.7 seconds 9.0-14.0 H INTERNATIONAL NORMAL RATIO (test code = INR) 1.8 0.8-1.2 H The therapeutic range for oral anticoagulant therapy formost indications is an international normalized ratio (INR)of between 2.0 and 3.0. The recommended therapeutic INRrange for various clinical situations is listed below: Clinical Situation INR range Pulmonary e mbolism treatment (2.0-3.0)Venous thrombosis treatmentVenous thrombosis prophylaxis (high risk surgery)Prevention of systemic embolism from: Acute myocardial infarction Valvular heart disease Atrial fibrillation Mechanical prosthetic heart valves (2.5-3.5) IS PATIENT ON ANTICOAGULANTS? [employer]LIST ANTICOAGULANTS [id number] 06:04:00* Test Item Value Reference Range Interpretation Comments GLUBED (test code = GLUBED) 164 mg/dL 74-106 H Performed by certified call center operator at [facility] [id number] 23:26:00* Test Item Value Reference Range Interpretation Comments GLUBED (test code = GLUBED) 179 mg/dL 74-106 H Performed by certified call center operator at [facility] [id number] 20:42:00* Test Item Value Reference Range Interpretation Comments GLUBED (test code = GLUBED) 98 mg/dL 74-106 N Performed by certified call center operator at [facility] [id number] 20:07:00* Test Item Value Reference Range Interpretation Comments GLUBED (test code = GLUBED) 49 mg/dL 74-106 LL [facility] [id number] 17:06:00* Test Item Value Reference Range Interpretation Comments GLUBED (test code = GLUBED) 174 mg/dL 74-106 H Performed by certified call center operator at [facility] [id number] 11:26:00* Test Item Value Reference Range Interpretation Comments GLUBED (test code = GLUBED) 80 mg/dL 74-106 N Performed by certified call center operator at [facility] CBC W/AUTO [id number] 06:22:00* Test Item Value Reference Range Interpretation Comments WHITE BLOOD CELL (test code = WBC) 10.9 K/mm3 4.5-12.5 N RED BLOOD CELL (test code = RBC) 3.45 mill/mm3 3.7-5.2 L HEMOGLOBIN (test code = HGB) 9.8 gram/dL 11.5-15.5 L HEMATOCRIT (test code = HCT) 32.7 % 36.0-46.0 L MEAN CELL VOLUME (test code = MCV) 94.8 fL 80-98 N MEAN CELL HGB (test code = MCH) 28.4 picogram 27.0-33.0 N MEAN CELL HGB CONCETRATION (test code = MCHC) 30.0 gram/dL 33.0-36. 0 L RED CELL DISTRIBUTION WIDTH (test code = RDW) 14.7 % 11.6-16. 2 N RED CELL DISTRIBUTION WIDTH SD (test code = RDW-SD) 51.1 fL 37 .0-51.0 H PLATELET COUNT (test code = PLT) 341 K/mm3 150-450 N MEAN PLATELET VOLUME (test code = MPV) 8.8 fL 6.7-11.0 N NEUTROPHIL % (test code = NT%) 76.6 % 39.0-69.0 H IMMATURE GRANULOCYTE % (test code = IG%) 1.0 % 0.0-5.0 N LYMPHOCYTE % (test code = LY%) 9.4 % 25.0-55.0 L MONOCYTE % (test code = MO%) 8.8 % 0.0-10.0 N EOSINOPHIL % (test code = EO%) 3.6 % 0.0-5.0 N BASOPHIL % (test code = BA%) 0.6 % 0.0-1.0 N NUCLEATED RBC % (test code = NRBC%) 0.0 % 0-0 N NEUTROPHIL # (test code = NT#) 8.34 K/mm3 1.8-7.7 H IMMATURE GRANULOCYTE # (test code = IG#) 0.11 x10 3/uL 0-0.03 H LYMPHOCYTE # (test code = LY#) 1.02 K/mm3 1.0-5.0 N MONOCYTE # (test code = MO#) 0.96 K/mm3 0-0.8 H EOSINOPHIL # (test code = EO#) 0.39 K/mm3 0.0-0.5 N BASOPHIL # (test code = BA#) 0.06 K/mm3 0.0-0.2 N NUCLEATED RBC # (test code = NRBC#) 0.00 K/mm3 0.0-0.1 N MANUAL DIFF REQUIRED (test code = MDIFF) NO PROTHROMBIN [id number] 06:19:00* Test Item Value Reference Range Interpretation Comments PROTHROMBIN TIME PATIENT (test code = PTP) 23.0 seconds 9.0-14.0 H INTERNATIONAL NORMAL RATIO (test code = INR) 2.0 0.8-1.2 H The therapeutic range for oral anticoagulant therapy formost indications is an international normalized ratio (INR)of between 2.0 and 3.0. The recommended therapeutic INRrange for various clinical situations is listed below: Clinical Situation INR range Pulmonary e mbolism treatment (2.0-3.0)Venous thrombosis treatmentVenous thrombosis prophylaxis (high risk surgery)Prevention of systemic embolism from: Acute myocardial infarction Valvular heart disease Atrial fibrillation Mechanical prosthetic heart valves (2.5-3.5) IS PATIENT ON ANTICOAGULANTS? [employer]LIST ANTICOAGULANTS [id number] 06:13:00* Test Item Value Reference Range Interpretation Comments GLUBED (test code = GLUBED) 177 mg/dL 74-106 H Performed by certified call center operator at [facility] [id number] 03:55:00* Test Item Value Reference Range Interpretation Comments GLUBED (test code = GLUBED) 104 mg/dL 74-106 N Performed by certified call center operator at [facility] [id number] 20:49:00* Test Item Value Reference Range Interpretation Comments GLUBED (test code = GLUBED) 151 mg/dL 74-106 H Performed by certified call center operator at [facility] [id number] 15:42:00* Test Item Value Reference Range Interpretation Comments GLUBED (test code = GLUBED) 138 mg/dL 74-106 H Performed by certified call center operator at [facility] RENAL FUNCTION [id number] 15:21:00* Test Item Value Reference Range Interpretation Comments SODIUM (test code = NA) 133 mmol/L 136-145 L POTASSIUM (test code = K) 5.2 mmol/L 3.5-5.1 H CHLORIDE (test code = CL) 98.0 mmol/L 98-107 N CARBON DIOXIDE (test code = CO2) 28.0 mmol/L 21-32 N ANION GAP (test code = GAP) 12.2 10-20 N GLUCOSE (test code = GLU) 160 mg/dL 74-106 H BLOOD UREA NITROGEN (test code = BUN) 30 mg/dL 7-18 H CREATININE (test code = CREAT) 7.30 mg/dL 0.55-1.02 H Note change in reference range due to change in reagent. ALBUMIN (test code = ALB) 2.3 g/dL 3.4-5.0 L CALCIUM (test code = CA) 8.3 mg/dL 8.5-10.1 L PHOSPHORUS (test code = PHOS) 3.1 mg/dL 2.5-4.9 N RENAL FUNCTION [id number] 15:16:00* Test Item Value Reference Range Interpretation Comments SODIUM (test code = NA) 133 mmol/L 136-145 L POTASSIUM (test code = K) 5.2 mmol/L 3.5-5.1 H CHLORIDE (test code = CL) 98.0 mmol/L 98-107 N CARBON DIOXIDE (test code = CO2) mmol/L 21-32 ANION GAP (test code = GAP) 10-20 GLUCOSE (test code = GLU) mg/dL 74-106 BLOOD UREA NITROGEN (test code = BUN) mg/dL 7-18 CREATININE (test code = CREAT) mg/dL 0.55-1.02 ALBUMIN (test code = ALB) g/dL 3.4-5.0 CALCIUM (test code = CA) mg/dL 8.5-10.1 PHOSPHORUS (test code = PHOS) mg/dL 2.5-4.9 CBC W/AUTO [id number] 14:34:00* Test Item Value Reference Range Interpretation Comments WHITE BLOOD CELL (test code = WBC) 11.7 K/mm3 4.5-12.5 N RED BLOOD CELL (test code = RBC) 3.03 mill/mm3 3.7-5.2 L HEMOGLOBIN (test code = HGB) 8.6 gram/dL 11.5-15.5 L HEMATOCRIT (test code = HCT) 28.2 % 36.0-46.0 L MEAN CELL VOLUME (test code = MCV) 93.1 fL 80-98 N MEAN CELL HGB (test code = MCH) 28.4 picogram 27.0-33.0 N MEAN CELL HGB CONCETRATION (test code = MCHC) 30.5 gram/dL 33.0-36. 0 L RED CELL DISTRIBUTION WIDTH (test code = RDW) 14.7 % 11.6-16. 2 N RED CELL DISTRIBUTION WIDTH SD (test code = RDW-SD) 49.9 fL 37 .0-51.0 N PLATELET COUNT (test code = PLT) 332 K/mm3 150-450 N MEAN PLATELET VOLUME (test code = MPV) 8.8 fL 6.7-11.0 N NEUTROPHIL % (test code = NT%) 79.9 % 39.0-69.0 H IMMATURE GRANULOCYTE % (test code = IG%) 1.0 % 0.0-5.0 N LYMPHOCYTE % (test code = LY%) 7.2 % 25.0-55.0 L MONOCYTE % (test code = MO%) 7.9 % 0.0-10.0 N EOSINOPHIL % (test code = EO%) 3.7 % 0.0-5.0 N BASOPHIL % (test code = BA%) 0.3 % 0.0-1.0 N NUCLEATED RBC % (test code = NRBC%) 0.0 % 0-0 N NEUTROPHIL # (test code = NT#) 9.38 K/mm3 1.8-7.7 H IMMATURE GRANULOCYTE # (test code = IG#) 0.12 x10 3/uL 0-0.03 H LYMPHOCYTE # (test code = LY#) 0.84 K/mm3 1.0-5.0 L MONOCYTE # (test code = MO#) 0.93 K/mm3 0-0.8 H EOSINOPHIL # (test code = EO#) 0.44 K/mm3 0.0-0.5 N BASOPHIL # (test code = BA#) 0.03 K/mm3 0.0-0.2 N NUCLEATED RBC # (test code = NRBC#) 0.00 K/mm3 0.0-0.1 N [id number] 11:54:00* Test Item Value Reference Range Interpretation Comments GLUBED (test code = GLUBED) 97 mg/dL 74-106 N Performed by certified call center operator at [facility] PROTHROMBIN [id number] 07:34:00* Test Item Value Reference Range Interpretation Comments PROTHROMBIN TIME PATIENT (test code = PTP) 27.2 seconds 9.0-14.0 H INTERNATIONAL NORMAL RATIO (test code = INR) 2.3 0.8-1.2 H The therapeutic range for oral anticoagulant therapy [employer] indications is an international normalized ratio (INR)of between 2.0 and 3.0. The recommended therapeutic INRrange for various clinical situations is listed below: Clinical Situation INR range Pulmonary e mbolism treatment (2.0-3.0)Venous thrombosis treatmentVenous thrombosis prophylaxis (high risk surgery)Prevention of systemic embolism from: Acute myocardial infarction Valvular heart disease Atrial fibrillation Mechanical prosthetic heart valves (2.5-3.5) IS PATIENT ON ANTICOAGULANTS? [employer]LIST ANTICOAGULANTS [id number] 06:34:00* Test Item Value Reference Range Interpretation Comments GLUBED (test code = GLUBED) 170 mg/dL 74-106 H Performed by certified call center operator at [facility] [id number] 20:00:00* Test Item Value Reference Range Interpretation Comments GLUBED (test code = GLUBED) 102 mg/dL 74-106 N Performed by certified call center operator at [facility] [id number] 16:47:00* Test Item Value Reference Range Interpretation Comments GLUBED (test code = GLUBED) 90 mg/dL 74-106 N Performed by certified call center operator at [facility] [id number] 11:59:00* Test Item Value Reference Range Interpretation Comments GLUBED (test code = GLUBED) 143 mg/dL 74-106 H Performed by certified call center operator at [facility] [id number] 11:19:00* Test Item Value Reference Range Interpretation Comments GLUBED (test code = GLUBED) 124 mg/dL 74-106 H Performed by certified call center operator at [facility] PROTHROMBIN [id number] 07:24:00* Test Item Value Reference Range Interpretation Comments PROTHROMBIN TIME PATIENT (test code = PTP) 33.6 seconds 9.0-14.0 H INTERNATIONAL NORMAL RATIO (test code = INR) 2.9 0.8-1.2 H The therapeutic range for oral anticoagulant therapy form[employer] indications is an international normalized ratio (INR)of between 2.0 and 3.0. The recommended therapeutic INRrange for various clinical situations is listed below: Clinical Situation INR range Pulmonary e mbolism treatment (2.0-3.0)Venous thrombosis treatmentVenous thrombosis prophylaxis (high risk surgery)Prevention of systemic embolism from: Acute myocardial infarction Valvular heart disease Atrial fibrillation Mechanical prosthetic heart valves (2.5-3.5) IS PATIENT ON ANTICOAGULANTS? YLIST ANTICOAGULANTS [id number] 20:07:00* Test Item Value Reference Range Interpretation Comments GLUBED (test code = GLUBED) 145 mg/dL 74-106 H Performed by certified call center operator at [facility] [id number] 18:30:00* Test Item Value Reference Range Interpretation Comments GLUBED (test code = GLUBED) 143 mg/dL 74-106 H Performed by certified call center operator at [facility] [id number] 13:10:00* Test Item Value Reference Range Interpretation Comments PHOSPHORUS (test code = PHOS) 3.3 mg/dL 2.5-4.9 N BASIC METABOLIC [id number] 11:45:00* Test Item Value Reference Range Interpretation Comments SODIUM (test code = NA) 130 mmol/L 136-145 L POTASSIUM (test code = K) 5.2 mmol/L 3.5-5.1 H CHLORIDE (test code = CL) 94.0 mmol/L 98-107 L CARBON DIOXIDE (test code = CO2) 26.0 mmol/L 21-32 N ANION GAP (test code = GAP) 15.2 10-20 N GLUCOSE (test code = GLU) 185 mg/dL 74-106 H BLOOD UREA NITROGEN (test code = BUN) 41 mg/dL 7-18 H GLOMERULAR FILTRATION RATE (test code = GFR) 4 mL/min >=60 Estimated GFR by using Modified MDRD formula.Chronic kidney disease is defined as either kidney damageor GFR <60 mL/min/1.73 m2 for >3 months. CREATININE (test code = CREAT) 9.10 mg/dL 0.55-1.02 H Note change in reference range due to change in reagent. BUN/CREATININE RATIO (test code = BUN/CREA) 4.5 10-20 L CALCIUM (test code = CA) 8.3 mg/dL 8.5-10.1 L PROTHROMBIN [id number] 11:41:00* Test Item Value Reference Range Interpretation Comments PROTHROMBIN TIME PATIENT (test code = PTP) 36.7 seconds 9.0-14.0 H INTERNATIONAL NORMAL RATIO (test code = INR) 3.1 0.8-1.2 H The therapeutic range for oral anticoagulant therapy form[employer] indications is an international normalized ratio (INR)of between 2.0 and 3.0. The recommended therapeutic INRrange for various clinical situations is listed below: Clinical Situation INR range Pulmonary e mbolism treatment (2.0-3.0)Venous thrombosis treatmentVenous thrombosis prophylaxis (high risk surgery)Prevention of systemic embolism from: Acute myocardial infarction Valvular heart disease Atrial fibrillation Mechanical prosthetic heart valves (2.5-3.5) IS PATIENT ON ANTICOAGULANTS? YLIST ANTICOAGULANTS COUMADIN [id number] 11:13:00* Test Item Value Reference Range Interpretation Comments GLUBED (test code = GLUBED) 154 mg/dL 74-106 H Performed by certified call center operator at [facility] CBC W/AUTO [id number] 11:10:00* Test Item Value Reference Range Interpretation Comments WHITE BLOOD CELL (test code = WBC) 12.2 K/mm3 4.5-12.5 N RED BLOOD CELL (test code = RBC) 3.17 mill/mm3 3.7-5.2 L HEMOGLOBIN (test code = HGB) 9.1 gram/dL 11.5-15.5 L HEMATOCRIT (test code = HCT) 28.8 % 36.0-46.0 L MEAN CELL VOLUME (test code = MCV) 90.9 fL 80-98 N MEAN CELL HGB (test code = MCH) 28.7 picogram 27.0-33.0 N MEAN CELL HGB CONCETRATION (test code = MCHC) 31.6 gram/dL 33.0-36. 0 L RED CELL DISTRIBUTION WIDTH (test code = RDW) 14.5 % 11.6-16. 2 N RED CELL DISTRIBUTION WIDTH SD (test code = RDW-SD) 48.8 fL 37 .0-51.0 N PLATELET COUNT (test code = PLT) 326 K/mm3 150-450 N MEAN PLATELET VOLUME (test code = MPV) 9.1 fL 6.7-11.0 N NEUTROPHIL % (test code = NT%) 82.1 % 39.0-69.0 H IMMATURE GRANULOCYTE % (test code = IG%) 0.8 % 0.0-5.0 N LYMPHOCYTE % (test code = LY%) 8.4 % 25.0-55.0 L MONOCYTE % (test code = MO%) 5.6 % 0.0-10.0 N EOSINOPHIL % (test code = EO%) 2.3 % 0.0-5.0 N BASOPHIL % (test code = BA%) 0.8 % 0.0-1.0 N NUCLEATED RBC % (test code = NRBC%) 0.0 % 0-0 N NEUTROPHIL # (test code = NT#) 10.00 K/mm3 1.8-7.7 H IMMATURE GRANULOCYTE # (test code = IG#) 0.10 x10 3/uL 0-0.03 H LYMPHOCYTE # (test code = LY#) 1.02 K/mm3 1.0-5.0 N MONOCYTE # (test code = MO#) 0.68 K/mm3 0-0.8 N EOSINOPHIL # (test code = EO#) 0.28 K/mm3 0.0-0.5 N BASOPHIL # (test code = BA#) 0.10 K/mm3 0.0-0.2 N NUCLEATED RBC # (test code = NRBC#) 0.00 K/mm3 0.0-0.1 N [id number] 06:25:00* Test Item Value Reference Range Interpretation Comments GLUBED (test code = GLUBED) 179 mg/dL 74-106 H Performed by certified call center operator at [facility] [id number] 20:11:00* Test Item Value Reference Range Interpretation Comments GLUBED (test code = GLUBED) 162 mg/dL 74-106 H Performed by certified call center operator at [facility] [id number] 16:30:00* Test Item Value Reference Range Interpretation Comments GLUBED (test code = GLUBED) 171 mg/dL 74-106 H Performed by certified call center operator at [facility] URINALYSIS [id number] 14:42:00* Test Item Value Reference Range Interpretation Comments UA COLOR (test code = COLU) YELLOW YELLOW UA APPEARANCE (test code = APPU) TURBID CLEAR A UA GLUCOSE DIPSTICK (test code = DGLUU) NEGATIVE mg/dL NEGATIVE UA BILIRUBIN DIPSTICK (test code = BILU) NEGATIVE NEGATIVE UA KETONE DIPSTICK (test code = KETU) NEGATIVE mg/dL NEGATIVE UA SPECIFIC GRAVITY (test code = SGU) 1.020 1.001-1.035 UA BLOOD DIPSTICK (test code = BOB) 3+ (Large) NEGATIVE A UA PH DIPSTICK (test code = MICK) 6.5 5.0-8.0 UA PROTEIN DIPSTICK (test code = PROU) 100 (2+) mg/dL Neg-15 UA UROBILINIOGEN DIPSTICK (test code = URO) 0.2 mg/dL 0.0-0.2 UA NITRITE DIPSTICK (test code = GRISELDA) NEGATIVE NEGATIVE UA LEUKOCYTE ESTERASE W REFLEX (test code = LEUUR) 2+ NEG ATIVE A UA WBC (test code = WBCU) TNTC per HPF 0-5 A UA RBC (test code = RBCU) 11-20 per HPF 0-5 UA WBC CLUMPS (test code = WBCUCL) 3-6 /HPF NONE A UA EPITHELIAL CELLS (test code = EPIU) Moderate (5-10/hpf) per HPF Few UA BACTERIA (test code = BACU) MANY per HPF NONE UA MUCUS (test code = MUCU) FEW per LPF NONE-FEW UA AMORPHOUS SEDIMENT (test code = AMORU) MODERATE per LPF NONE A Urine Source? CatheterURINALYSIS [id number] 14:26:00* Test Item Value Reference Range Interpretation Comments UA COLOR (test code = COLU) YELLOW YELLOW UA APPEARANCE (test code = APPU) TURBID CLEAR A UA GLUCOSE DIPSTICK (test code = DGLUU) NEGATIVE mg/dL NEGATIVE UA BILIRUBIN DIPSTICK (test code = BILU) NEGATIVE NEGATIVE UA KETONE DIPSTICK (test code = KETU) NEGATIVE mg/dL NEGATIVE UA SPECIFIC GRAVITY (test code = SGU) 1.020 1.001-1.035 UA BLOOD DIPSTICK (test code = BOB) 3+ (Large) NEGATIVE A UA PH DIPSTICK (test code = MICK) 6.5 5.0-8.0 UA PROTEIN DIPSTICK (test code = PROU) 100 (2+) mg/dL Neg-15 UA UROBILINIOGEN DIPSTICK (test code = URO) 0.2 mg/dL 0.0-0.2 UA NITRITE DIPSTICK (test code = GRISELDA) NEGATIVE NEGATIVE UA LEUKOCYTE ESTERASE W REFLEX (test code = LEUUR) 2+ NEG ATIVE A UA WBC (test code = WBCU) per HPF 0-5 UA RBC (test code = RBCU) per HPF 0-5 UA EPITHELIAL CELLS (test code = EPIU) per HPF Few UA BACTERIA (test code = BACU) per HPF NONE Urine Source? [id number] 11:40:00* Test Item Value Reference Range Interpretation Comments GLUBED (test code = GLUBED) 141 mg/dL 74-106 H Performed by certified call center operator at [facility] PROTHROMBIN [id number] 07:30:00* Test Item Value Reference Range Interpretation Comments PROTHROMBIN TIME PATIENT (test code = PTP) 31.8 seconds 9.0-14.0 H INTERNATIONAL NORMAL RATIO (test code = INR) 2.7 0.8-1.2 H The therapeutic range for oral anticoagulant therapy [employer] indications is an international normalized ratio (INR)of between 2.0 and 3.0. The recommended therapeutic INRrange for various clinical situations is listed below: Clinical Situation INR range Pulmonary e mbolism treatment (2.0-3.0)Venous thrombosis treatmentVenous thrombosis prophylaxis (high risk surgery)Prevention of systemic embolism from: Acute myocardial infarction Valvular heart disease Atrial fibrillation Mechanical prosthetic heart valves (2.5-3.5) IS PATIENT ON ANTICOAGULANTS? [employer]LIST ANTICOAGULANTS [id number] 06:13:00* Test Item Value Reference Range Interpretation Comments GLUBED (test code = GLUBED) 158 mg/dL 74-106 H Performed by certified call center operator at [facility] [id number] 22:16:00* Test Item Value Reference Range Interpretation Comments GLUBED (test code = GLUBED) 82 mg/dL 74-106 N Performed by certified call center operator at [facility] [id number] 21:24:00* Test Item Value Reference Range Interpretation Comments GLUBED (test code = GLUBED) 68 mg/dL 74-106 L Performed by certified call center operator at [facility] [id number] 20:28:00* Test Item Value Reference Range Interpretation Comments GLUBED (test code = GLUBED) 51 mg/dL 74-106 L Performed by certified call center operator at [facility] [id number] 20:28:00* Test Item Value Reference Range Interpretation Comments GLUBED (test code = GLUBED) 51 mg/dL 74-106 L Performed by certified call center operator at [facility] [id number] 17:35:00* Test Item Value Reference Range Interpretation Comments GLUBED (test code = GLUBED) 74 mg/dL 74-106 N Performed by certified call center operator at [facility] [id number] 11:55:00* Test Item Value Reference Range Interpretation Comments GLUBED (test code = GLUBED) 216 mg/dL 74-106 H Performed by certified call center operator at [facility] PROTHROMBIN [id number] 07:20:00* Test Item Value Reference Range Interpretation Comments PROTHROMBIN TIME PATIENT (test code = PTP) 29.5 seconds 9.0-14.0 H INTERNATIONAL NORMAL RATIO (test code = INR) 2.5 0.8-1.2 H The therapeutic range for oral anticoagulant therapy form[employer] indications is an international normalized ratio (INR)of between 2.0 and 3.0. The recommended therapeutic INRrange for various clinical situations is listed below: Clinical Situation INR range Pulmonary e mbolism treatment (2.0-3.0)Venous thrombosis treatmentVenous thrombosis prophylaxis (high risk surgery)Prevention of systemic embolism from: Acute myocardial infarction Valvular heart disease Atrial fibrillation Mechanical prosthetic heart valves (2.5-3.5) IS PATIENT ON ANTICOAGULANTS? YLIST ANTICOAGULANTS [id number] 06:02:00* Test Item Value Reference Range Interpretation Comments GLUBED (test code = GLUBED) 209 mg/dL 74-106 H Performed by certified call center operator at [facility] [id number] 20:24:00* Test Item Value Reference Range Interpretation Comments GLUBED (test code = GLUBED) 176 mg/dL 74-106 H Performed by certified call center operator at [facility] [id number] 17:35:00* Test Item Value Reference Range Interpretation Comments GLUBED (test code = GLUBED) 102 mg/dL 74-106 N Performed by certified call center operator at [facility] [id number] 11:22:00* Test Item Value Reference Range Interpretation Comments GLUBED (test code = GLUBED) 194 mg/dL 74-106 H Performed by certified call center operator at [facility] PROCALCITONIN (PCT)2018-09-23 07:51:00* Test Item Value Reference Range Interpretation Comments PROCALCITONIN (PCT) (test code = PROCAL) 1.03 ng/ml Concentration Interpretation (ng/mL) <0.51 Sepsis is not likely. Local bacterial infection is possible. (LOW RISK for progression to Sepsis) 0.51 - 2.00 Sepsis is possible, but other conditions are known to elevate PCT as well. (MODERATE RISK for progression to Sepsis) > 2.00 Sepsis is likely, unless other causes are known. (HIGH RISK for progression to Severe Sepsis or Septic Shock) 10.00 High likelihood of Severe Sepsis or Septic or higher Shock. *Increased PCT levels may not always be related to systemic bacterial infection.*Low PCT levels do not automatically exclude the presence of bacterial infection.*All results should be interpreted taking into account the patients history. PROTHROMBIN [id number] 07:16:00* Test Item Value Reference Range Interpretation Comments PROTHROMBIN TIME PATIENT (test code = PTP) 23.3 seconds 9.0-14.0 H INTERNATIONAL NORMAL RATIO (test code = INR) 2.0 0.8-1.2 H The therapeutic range for oral anticoagulant therapy form[employer] indications is an international normalized ratio (INR)of between 2.0 and 3.0. The recommended therapeutic INRrange for various clinical situations is listed below: Clinical Situation INR range Pulmonary e mbolism treatment (2.0-3.0)Venous thrombosis treatmentVenous thrombosis prophylaxis (high risk surgery)Prevention of systemic embolism from: Acute myocardial infarction Valvular heart disease Atrial fibrillation Mechanical prosthetic heart valves (2.5-3.5) IS PATIENT ON ANTICOAGULANTS? [employer]LIST ANTICOAGULANTS [id number] 06:50:00* Test Item Value Reference Range Interpretation Comments GLUBED (test code = GLUBED) 151 mg/dL 74-106 H Performed by certified call center operator at [facility] BASIC METABOLIC [id number] 06:23:00* Test Item Value Reference Range Interpretation Comments SODIUM (test code = NA) 132 mmol/L 136-145 L POTASSIUM (test code = K) 4.4 mmol/L 3.5-5.1 N CHLORIDE (test code = CL) 98.0 mmol/L 98-107 N CARBON DIOXIDE (test code = CO2) 26.0 mmol/L 21-32 N ANION GAP (test code = GAP) 12.4 10-20 N GLUCOSE (test code = GLU) 124 mg/dL 74-106 H BLOOD UREA NITROGEN (test code = BUN) 27 mg/dL 7-18 H GLOMERULAR FILTRATION RATE (test code = GFR) 7 mL/min >=60 Estimated GFR by using Modified MDRD formula.Chronic kidney disease is defined as either kidney damageor GFR <60 mL/min/1.73 m2 for >3 months. CREATININE (test code = CREAT) 6.20 mg/dL 0.55-1.02 H Note change in reference range due to change in reagent. BUN/CREATININE RATIO (test code = BUN/CREA) 4.4 10-20 L CALCIUM (test code = CA) 8.3 mg/dL 8.5-10.1 L CBC W/O [id number] 05:41:00* Test Item Value Reference Range Interpretation Comments WHITE BLOOD CELL (test code = WBC) 15.4 K/mm3 4.5-12.5 H RED BLOOD CELL (test code = RBC) 3.68 mill/mm3 3.7-5.2 L HEMOGLOBIN (test code = HGB) 10.7 gram/dL 11.5-15.5 L HEMATOCRIT (test code = HCT) 35.1 % 36.0-46.0 L MEAN CELL VOLUME (test code = MCV) 95.4 fL 80-98 N MEAN CELL HGB (test code = MCH) 29.1 picogram 27.0-33.0 N MEAN CELL HGB CONCETRATION (test code = MCHC) 30.5 gram/dL 33.0-36. 0 L RED CELL DISTRIBUTION WIDTH (test code = RDW) 14.6 % 11.6-16. 2 N PLATELET COUNT (test code = PLT) 318 K/mm3 150-450 N MEAN PLATELET VOLUME (test code = MPV) 9.2 fL 6.7-11.0 N [id number] 20:10:00* Test Item Value Reference Range Interpretation Comments GLUBED (test code = GLUBED) 79 mg/dL 74-106 N Performed by certified call center operator at [facility] [id number] 16:13:00* Test Item Value Reference Range Interpretation Comments GLUBED (test code = GLUBED) 194 mg/dL 74-106 H Performed by certified call center operator at [facility] PROCALCITONIN (PCT)2018-09-22 12:19:00* Test Item Value Reference Range Interpretation Comments PROCALCITONIN (PCT) (test code = PROCAL) 0.94 ng/ml Concentration Interpretation (ng/mL) <0.51 Sepsis is not likely. Local bacterial infection is possible. (LOW RISK for progression to Sepsis) 0.51 - 2.00 Sepsis is possible, but other conditions are known to elevate PCT as well. (MODERATE RISK for progression to Sepsis) > 2.00 Sepsis is likely, unless other causes are known. (HIGH RISK for progression to Severe Sepsis or Septic Shock) 10.00 High likelihood of Severe Sepsis or Septic or higher Shock. *Increased PCT levels may not always be related to systemic bacterial infection.*Low PCT levels do not automatically exclude the presence of bacterial infection.*All results should be interpreted taking into account the patients history. [id number] 11:22:00* Test Item Value Reference Range Interpretation Comments GLUBED (test code = GLUBED) 205 mg/dL 74-106 H Performed by certified call center operator at [facility] CBC W/AUTO [id number] 10:54:00* Test Item Value Reference Range Interpretation Comments WHITE BLOOD CELL (test code = WBC) 18.7 K/mm3 4.5-12.5 H RED BLOOD CELL (test code = RBC) 3.75 mill/mm3 3.7-5.2 N HEMOGLOBIN (test code = HGB) 10.7 gram/dL 11.5-15.5 L HEMATOCRIT (test code = HCT) 35.5 % 36.0-46.0 L MEAN CELL VOLUME (test code = MCV) 94.7 fL 80-98 N MEAN CELL HGB (test code = MCH) 28.5 picogram 27.0-33.0 N MEAN CELL HGB CONCETRATION (test code = MCHC) 30.1 gram/dL 33.0-36. 0 L RED CELL DISTRIBUTION WIDTH (test code = RDW) 14.6 % 11.6-16. 2 N RED CELL DISTRIBUTION WIDTH SD (test code = RDW-SD) 51.0 fL 37 .0-51.0 N PLATELET COUNT (test code = PLT) 364 K/mm3 150-450 RESULT VERIFIED BY REPEAT ANALYSIS MEAN PLATELET VOLUME (test code = MPV) 9.3 fL 6.7-11.0 N NEUTROPHIL % (test code = NT%) 87.0 % 39.0-69.0 H IMMATURE GRANULOCYTE % (test code = IG%) 1.2 % 0.0-5.0 N LYMPHOCYTE % (test code = LY%) 4.3 % 25.0-55.0 L MONOCYTE % (test code = MO%) 5.7 % 0.0-10.0 N EOSINOPHIL % (test code = EO%) 1.3 % 0.0-5.0 N BASOPHIL % (test code = BA%) 0.5 % 0.0-1.0 N NUCLEATED RBC % (test code = NRBC%) 0.0 % 0-0 N NEUTROPHIL # (test code = NT#) 16.29 K/mm3 1.8-7.7 H IMMATURE GRANULOCYTE # (test code = IG#) 0.23 x10 3/uL 0-0.03 H LYMPHOCYTE # (test code = LY#) 0.81 K/mm3 1.0-5.0 L MONOCYTE # (test code = MO#) 1.06 K/mm3 0-0.8 H EOSINOPHIL # (test code = EO#) 0.25 K/mm3 0.0-0.5 N BASOPHIL # (test code = BA#) 0.10 K/mm3 0.0-0.2 N NUCLEATED RBC # (test code = NRBC#) 0.00 K/mm3 0.0-0.1 N MANUAL DIFF REQUIRED (test code = MDIFF) NO PROTHROMBIN [id number] 07:42:00* Test Item Value Reference Range Interpretation Comments PROTHROMBIN TIME PATIENT (test code = PTP) 28.0 seconds 9.0-14.0 H INTERNATIONAL NORMAL RATIO (test code = INR) 2.4 0.8-1.2 H The therapeutic range for oral anticoagulant therapy formost indications is an international normalized ratio (INR)of between 2.0 and 3.0. The recommended therapeutic INRrange for various clinical situations is listed below: Clinical Situation INR range Pulmonary e mbolism treatment (2.0-3.0)Venous thrombosis treatmentVenous thrombosis prophylaxis (high risk surgery)Prevention of systemic embolism from: Acute myocardial infarction Valvular heart disease Atrial fibrillation Mechanical prosthetic heart valves (2.5-3.5) IS PATIENT ON ANTICOAGULANTS? YLIST ANTICOAGULANTS [id number] 06:35:00* Test Item Value Reference Range Interpretation Comments GLUBED (test code = GLUBED) 244 mg/dL 74-106 H Performed by certified call center operator at [facility] [id number] 20:55:00* Test Item Value Reference Range Interpretation Comments GLUBED (test code = GLUBED) 194 mg/dL 74-106 H Performed by certified call center operator at [facility] [id number] 18:47:00* Test Item Value Reference Range Interpretation Comments GLUBED (test code = GLUBED) 187 mg/dL 74-106 H Performed by certified call center operator at [facility] [id number] 11:41:00* Test Item Value Reference Range Interpretation Comments GLUBED (test code = GLUBED) 117 mg/dL 74-106 H Performed by certified call center operator at [facility] - XR SHOULDER 2 + V [id number] 09:55:00 FAX: Alaina Ramos MD [phone] [place]: St: ADM FAX: Seth Mccord MD [phone] FAX: Jaziel Hughes Fo Name: ERIN SCHILLING [facility] : 1950 Age/S: 67/F [address] [facility] Unit #: [id number] Loc: V.3091 [place] [address] Phys: Seth Benito MD Acct: [id number] Dis Date: Status: ADM IN ONE #: [phone] Exam Date: 09/21/2018 08 FAX #: [phone] Reason: shoulder pain EXAMS: CPT CODE: [id number] XR SHOULDER 2 + [place] [id number] HISTORY: Shoul monique pain. COMPARISON: X-ray from May 02, 2018. 3 views of the right shoulder: High riding humeral head may suggest chronic rotator cuff tear. Narrowed shoulder joint. Severely narrowed AC joint with marginal osteophytes. The glenoid, coracoid and the scapula are unremarkable. Visualized lungs are clear. IMPRESSION: No acute fracture or dislocation is visible. Severely narrowed AC joint with marginal osteophytes which can result in impingement. High riding humeral head may suggest rotator cuff tear. Subchondral cysts and sclerosis of the humeral head. at 0910 Reported and signed by: Jamie Lovell M.D. CC: Alaina Alonzo; Seth Benito MD; Jaziel Alvarado DO Technologist: Nadeen Mcintosh(R); Loren Ulloa RT(R) Trnscrd Date/Time/By: 09/21/2018 (0955) : By: [email or web address] [facility] Print D/T: S: 09/21/2018 (0958) PAGE 1 Signed Report BASIC METABOLIC [id number] 08:24:00* Test Item Value Reference Range Interpretation Comments SODIUM (test code = NA) 133 mmol/L 136-145 L POTASSIUM (test code = K) 4.6 mmol/L 3.5-5.1 N CHLORIDE (test code = CL) 94.0 mmol/L 98-107 L CARBON DIOXIDE (test code = CO2) 29.0 mmol/L 21-32 N ANION GAP (test code = GAP) 14.6 10-20 N GLUCOSE (test code = GLU) 275 mg/dL 74-106 H BLOOD UREA NITROGEN (test code = BUN) 35 mg/dL 7-18 H RESULT VERIFIED BY REPEAT ANALYSIS GLOMERULAR FILTRATION RATE (test code = GFR) 6 mL/min >=60 Estimated GFR by using Modified MDRD formula.Chronic kidney disease is defined as either kidney damageor GFR <60 mL/min/1.73 m2 for >3 months. CREATININE (test code = CREAT) 7.30 mg/dL 0.55-1.02 H Note change in reference range due to change in reagent. BUN/CREATININE RATIO (test code = BUN/CREA) 4.8 10-20 L CALCIUM (test code = CA) 8.4 mg/dL 8.5-10.1 L BASIC METABOLIC [id number] 07:45:00* Test Item Value Reference Range Interpretation Comments SODIUM (test code = NA) 133 mmol/L 136-145 L POTASSIUM (test code = K) 4.6 mmol/L 3.5-5.1 N CHLORIDE (test code = CL) 94.0 mmol/L 98-107 L CARBON DIOXIDE (test code = CO2) mmol/L 21-32 ANION GAP (test code = GAP) 10-20 GLUCOSE (test code = GLU) mg/dL 74-106 BLOOD UREA NITROGEN (test code = BUN) mg/dL 7-18 GLOMERULAR FILTRATION RATE (test code = GFR) mL/min >=60 CREATININE (test code = CREAT) mg/dL 0.55-1.02 BUN/CREATININE RATIO (test code = BUN/CREA) 10-20 CALCIUM (test code = CA) 8.4 mg/dL 8.5-10.1 L PROTHROMBIN [id number] 06:39:00* Test Item Value Reference Range Interpretation Comments PROTHROMBIN TIME PATIENT (test code = PTP) 36.1 seconds 9.0-14.0 H INTERNATIONAL NORMAL RATIO (test code = INR) 3.1 0.8-1.2 H The therapeutic range for oral anticoagulant therapy formost indications is an international normalized ratio (INR)of between 2.0 and 3.0. The recommended therapeutic INRrange for various clinical situations is listed below: Clinical Situation INR range Pulmonary e mbolism treatment (2.0-3.0)Venous thrombosis treatmentVenous thrombosis prophylaxis (high risk surgery)Prevention of systemic embolism from: Acute myocardial infarction Valvular heart disease Atrial fibrillation Mechanical prosthetic heart valves (2.5-3.5) IS PATIENT ON ANTICOAGULANTS? YLIST ANTICOAGULANTS COUMADINCBC W/AUTO DIFF 2018-09-21 06:28:00* Test Item Value Reference Range Interpretation Comments WHITE BLOOD CELL (test code = WBC) 20.8 K/mm3 4.5-12.5 H RED BLOOD CELL (test code = RBC) 3.60 mill/mm3 3.7-5.2 L HEMOGLOBIN (test code = HGB) 10.5 gram/dL 11.5-15.5 L HEMATOCRIT (test code = HCT) 33.7 % 36.0-46.0 L MEAN CELL VOLUME (test code = MCV) 93.6 fL 80-98 N MEAN CELL HGB (test code = MCH) 29.2 picogram 27.0-33.0 N MEAN CELL HGB CONCETRATION (test code = MCHC) 31.2 gram/dL 33.0-36. 0 L RED CELL DISTRIBUTION WIDTH (test code = RDW) 14.5 % 11.6-16. 2 N RED CELL DISTRIBUTION WIDTH SD (test code = RDW-SD) 49.9 fL 37 .0-51.0 N PLATELET COUNT (test code = PLT) 281 K/mm3 150-450 N MEAN PLATELET VOLUME (test code = MPV) 9.2 fL 6.7-11.0 N NEUTROPHIL % (test code = NT%) 88.1 % 39.0-69.0 H IMMATURE GRANULOCYTE % (test code = IG%) 1.6 % 0.0-5.0 N LYMPHOCYTE % (test code = LY%) 4.2 % 25.0-55.0 L MONOCYTE % (test code = MO%) 4.0 % 0.0-10.0 N EOSINOPHIL % (test code = EO%) 1.7 % 0.0-5.0 N BASOPHIL % (test code = BA%) 0.4 % 0.0-1.0 N NUCLEATED RBC % (test code = NRBC%) 0.0 % 0-0 N NEUTROPHIL # (test code = NT#) 18.32 K/mm3 1.8-7.7 H IMMATURE GRANULOCYTE # (test code = IG#) 0.34 x10 3/uL 0-0.03 H LYMPHOCYTE # (test code = LY#) 0.87 K/mm3 1.0-5.0 L MONOCYTE # (test code = MO#) 0.83 K/mm3 0-0.8 H EOSINOPHIL # (test code = EO#) 0.36 K/mm3 0.0-0.5 N BASOPHIL # (test code = BA#) 0.09 K/mm3 0.0-0.2 N NUCLEATED RBC # (test code = NRBC#) 0.00 K/mm3 0.0-0.1 N MANUAL DIFF REQUIRED (test code = MDIFF) NO [id number] 05:56:00* Test Item Value Reference Range Interpretation Comments GLUBED (test code = GLUBED) 309 mg/dL 74-106 H Performed by certified call center operator at [facility] [id number] 21:08:00* Test Item Value Reference Range Interpretation Comments GLUBED (test code = GLUBED) 95 mg/dL 74-106 N Performed by certified call center operator at [facility] [id number] 17:23:00* Test Item Value Reference Range Interpretation Comments GLUBED (test code = GLUBED) 117 mg/dL 74-106 H Performed by certified call center operator at [facility] - XR ABDOMEN AP 1 [id number] 12:27:00 FAX: Alaina Ramos MD [phone] [place]: St: [facility] FAX: Aisha Schuler [phone] FAX: Jaziel Hughes Fo Name: ERIN SCHILLING [facility] : 1950 Age/S: 67/F [address] Unit #: [id number] Loc: V.3091 [place] [address] Phys: Aisha Schuler MD Acct: [id number] Dis Date: Status: ADM IN PH ONE #: [phone] Exam Date: 09/20/2018 0935 FAX #: [phone] Reason: nausea, vomiting EXAMS: CPT CODE: [id number] XR ABDOMEN AP 1 V [id number] HISTORY: Nausea and vomiting. COMPARISON: CT abdomen and pelvis from September 03, 2018. No bowel obstruction. Right colostomy seen on the CT scan is not well seen on this examination. Constipation. No pathologic calcifications. Patient is post cholecystectomy. DJD of the lumbar spine. IMPRESSION: No bowel obstruction. Constipation. at 6459 Reported and signed by: Jamie Lovell M.D. CC: Alaina Alonzo; Aisha Schuler MD; Jaziel Alvarado DO Technologist: PITERO DENNIS JR Trnscrd Date/Time/By: 09/20/2018 (1227) : By: [email or web address] Orig Print D/T: S: 09/20/2018 (9219) PAGE 1 Signed Report [id number] 11:58:00* Test Item Value Reference Range Interpretation Comments GLUBED (test code = GLUBED) 187 mg/dL 74-106 H Performed by certified call center operator at [facility] BASIC METABOLIC [id number] 06:52:00* Test Item Value Reference Range Interpretation Comments SODIUM (test code = NA) 137 mmol/L 136-145 N POTASSIUM (test code = K) 4.3 mmol/L 3.5-5.1 N CHLORIDE (test code = CL) 99.0 mmol/L 98-107 N CARBON DIOXIDE (test code = CO2) 29.0 mmol/L 21-32 N ANION GAP (test code = GAP) 13.3 10-20 N GLUCOSE (test code = GLU) 150 mg/dL 74-106 H BLOOD UREA NITROGEN (test code = BUN) 26 mg/dL 7-18 H RESULT VERIFIED BY REPEAT ANALYSIS GLOMERULAR FILTRATION RATE (test code = GFR) 7 mL/min >=60 Estimated GFR by using Modified MDRD formula.Chronic kidney disease is defined as either kidney damageor GFR <60 mL/min/1.73 m2 for >3 months. CREATININE (test code = CREAT) 5.70 mg/dL 0.55-1.02 H Note change in reference range due to change in reagent. BUN/CREATININE RATIO (test code = BUN/CREA) 4.6 10-20 L CALCIUM (test code = CA) 8.1 mg/dL 8.5-10.1 L [id number] 06:31:00* Test Item Value Reference Range Interpretation Comments GLUBED (test code = GLUBED) 136 mg/dL 74-106 H Performed by certified call center operator at [facility] BASIC METABOLIC [id number] 06:24:00* Test Item Value Reference Range Interpretation Comments SODIUM (test code = NA) 137 mmol/L 136-145 N POTASSIUM (test code = K) 4.3 mmol/L 3.5-5.1 N CHLORIDE (test code = CL) 99.0 mmol/L 98-107 N CARBON DIOXIDE (test code = CO2) mmol/L 21-32 ANION GAP (test code = GAP) 10-20 GLUCOSE (test code = GLU) mg/dL 74-106 BLOOD UREA NITROGEN (test code = BUN) mg/dL 7-18 GLOMERULAR FILTRATION RATE (test code = GFR) mL/min >=60 CREATININE (test code = CREAT) mg/dL 0.55-1.02 BUN/CREATININE RATIO (test code = BUN/CREA) 10-20 CALCIUM (test code = CA) mg/dL 8.5-10.1 PROTHROMBIN [id number] 06:10:00* Test Item Value Reference Range Interpretation Comments PROTHROMBIN TIME PATIENT (test code = PTP) 44.8 seconds 9.0-14.0 H INTERNATIONAL NORMAL RATIO (test code = INR) 3.8 0.8-1.2 H The therapeutic range for oral anticoagulant therapy formost indications is an international normalized ratio (INR)of between 2.0 and 3.0. The recommended therapeutic INRrange for various clinical situations is listed below: Clinical Situation INR range Pulmonary e mbolism treatment (2.0-3.0)Venous thrombosis treatmentVenous thrombosis prophylaxis (high risk surgery)Prevention of systemic embolism from: Acute myocardial infarction Valvular heart disease Atrial fibrillation Mechanical prosthetic heart valves (2.5-3.5) IS PATIENT ON ANTICOAGULANTS? YLIST ANTICOAGULANTS COUMADINCBC W/AUTO DIFF 2018-09-19 23:42:00* Test Item Value Reference Range Interpretation Comments WHITE BLOOD CELL (test code = WBC) 22.0 K/mm3 4.5-12.5 H RED BLOOD CELL (test code = RBC) 3.55 mill/mm3 3.7-5.2 L HEMOGLOBIN (test code = HGB) 10.3 gram/dL 11.5-15.5 L HEMATOCRIT (test code = HCT) 33.1 % 36.0-46.0 L MEAN CELL VOLUME (test code = MCV) 93.2 fL 80-98 N MEAN CELL HGB (test code = MCH) 29.0 picogram 27.0-33.0 N MEAN CELL HGB CONCETRATION (test code = MCHC) 31.1 gram/dL 33.0-36. 0 L RED CELL DISTRIBUTION WIDTH (test code = RDW) 14.6 % 11.6-16. 2 N RED CELL DISTRIBUTION WIDTH SD (test code = RDW-SD) 49.6 fL 37 .0-51.0 N PLATELET COUNT (test code = PLT) 285 K/mm3 150-450 N MEAN PLATELET VOLUME (test code = MPV) 9.0 fL 6.7-11.0 N NEUTROPHIL % (test code = NT%) 90.5 % 39.0-69.0 H IMMATURE GRANULOCYTE % (test code = IG%) 1.2 % 0.0-5.0 N LYMPHOCYTE % (test code = LY%) 3.1 % 25.0-55.0 L MONOCYTE % (test code = MO%) 3.1 % 0.0-10.0 N EOSINOPHIL % (test code = EO%) 1.6 % 0.0-5.0 N BASOPHIL % (test code = BA%) 0.5 % 0.0-1.0 N NUCLEATED RBC % (test code = NRBC%) 0.0 % 0-0 N NEUTROPHIL # (test code = NT#) 19.90 K/mm3 1.8-7.7 H IMMATURE GRANULOCYTE # (test code = IG#) 0.26 x10 3/uL 0-0.03 H LYMPHOCYTE # (test code = LY#) 0.69 K/mm3 1.0-5.0 L MONOCYTE # (test code = MO#) 0.69 K/mm3 0-0.8 N EOSINOPHIL # (test code = EO#) 0.35 K/mm3 0.0-0.5 N BASOPHIL # (test code = BA#) 0.11 K/mm3 0.0-0.2 N NUCLEATED RBC # (test code = NRBC#) 0.00 K/mm3 0.0-0.1 N MANUAL DIFF REQUIRED (test code = MDIFF) NO [id number] 20:40:00* Test Item Value Reference Range Interpretation Comments GLUBED (test code = GLUBED) 154 mg/dL 74-106 H Performed by certified call center operator at [facility] [id number] 18:12:00* Test Item Value Reference Range Interpretation Comments GLUBED (test code = GLUBED) 114 mg/dL 74-106 H Performed by certified call center operator at [facility] - NM GASTRIC [id number] 14:39:00 FAX: Alaina Ramos MD [phone] [place]: St: ADM FAX: Jaziel Hughes FAX: Panda Avalos [phone] Name: ERIN SCHILLING [facility] : 1950 Age/S: 67/F [address] Unit #: [id number] Loc: V.3091 [place] [address] Phys: Panda Ross MD Acct: [id number] Dis Date: Status: ADM IN ONE #: [phone] Exam Date: 09/18/2018 1230 FAX #: [phone] Reason: vomiting EXAMS: CPT CODE: [id number] NM GASTRIC EMPTYING [id number] REASON FOR EXA M: vomiting Exam Order Date: 09/18/2018 1:45 PM Proce dure: - NM GASTRIC EMPTYING FINDINGS: The patient was given 1 mCi of technetium 99m Sulfur Colloid mixed with oatmeal to swallow. Unremarka ble appearance of the radiotracer within the stomach. Unremarkable passing of the radiotracer into the small bowel. At 82 minutes, half of the oat m eal passed from the stomach to the small bowel consistent with a T half time of 82 IMPRESSION: Normal gastric emptying E lectronically Signed by Torito Macias on 09/19/2018 at 1435 Reported and signed by: Miguel Macias M.D. CC: Alaina Alonzo; Jaziel Alvarado DO; Panda Ross MD Technologist: Sara Sandy RT(N) Trnscrd Date/Time/By: 09/19/2018 (8448) : By: swetha CUETOVTL Orig Print D/T: S: 09/19/2018 (5670) PAGE 1 Signed Report GLUBED 2018-09-19 12:58:00* Test Item Value Reference Range Interpretation Comments GLUBED (test code = GLUBED) 151 mg/dL 74-106 H Performed by certified call center operator at [facility] CBC W/AUTO [id number] 12:09:00* Test Item Value Reference Range Interpretation Comments WHITE BLOOD CELL (test code = WBC) 20.3 K/mm3 4.5-12.5 H RED BLOOD CELL (test code = RBC) 3.59 mill/mm3 3.7-5.2 L HEMOGLOBIN (test code = HGB) 10.5 gram/dL 11.5-15.5 L HEMATOCRIT (test code = HCT) 34.5 % 36.0-46.0 L MEAN CELL VOLUME (test code = MCV) 96.1 fL 80-98 N MEAN CELL HGB (test code = MCH) 29.2 picogram 27.0-33.0 N MEAN CELL HGB CONCETRATION (test code = MCHC) 30.4 gram/dL 33.0-36. 0 L RED CELL DISTRIBUTION WIDTH (test code = RDW) 14.7 % 11.6-16. 2 N RED CELL DISTRIBUTION WIDTH SD (test code = RDW-SD) 52.1 fL 37 .0-51.0 H PLATELET COUNT (test code = PLT) 325 K/mm3 150-450 N MEAN PLATELET VOLUME (test code = MPV) 9.0 fL 6.7-11.0 N NEUTROPHIL % (test code = NT%) 85.9 % 39.0-69.0 H IMMATURE GRANULOCYTE % (test code = IG%) 1.3 % 0.0-5.0 N LYMPHOCYTE % (test code = LY%) 4.7 % 25.0-55.0 L MONOCYTE % (test code = MO%) 3.4 % 0.0-10.0 N EOSINOPHIL % (test code = EO%) 4.1 % 0.0-5.0 N BASOPHIL % (test code = BA%) 0.6 % 0.0-1.0 N NUCLEATED RBC % (test code = NRBC%) 0.0 % 0-0 N NEUTROPHIL # (test code = NT#) 17.48 K/mm3 1.8-7.7 H IMMATURE GRANULOCYTE # (test code = IG#) 0.26 x10 3/uL 0-0.03 H LYMPHOCYTE # (test code = LY#) 0.95 K/mm3 1.0-5.0 L MONOCYTE # (test code = MO#) 0.69 K/mm3 0-0.8 N EOSINOPHIL # (test code = EO#) 0.84 K/mm3 0.0-0.5 H BASOPHIL # (test code = BA#) 0.12 K/mm3 0.0-0.2 N NUCLEATED RBC # (test code = NRBC#) 0.00 K/mm3 0.0-0.1 N MANUAL DIFF REQUIRED (test code = MDIFF) NO RENAL FUNCTION [id number] 10:34:00* Test Item Value Reference Range Interpretation Comments SODIUM (test code = NA) 135 mmol/L 136-145 L POTASSIUM (test code = K) 5.1 mmol/L 3.5-5.1 N CHLORIDE (test code = CL) 96.0 mmol/L 98-107 L CARBON DIOXIDE (test code = CO2) 31.0 mmol/L 21-32 N ANION GAP (test code = GAP) 13.1 10-20 N GLUCOSE (test code = GLU) 133 mg/dL 74-106 H BLOOD UREA NITROGEN (test code = BUN) 43 mg/dL 7-18 H CREATININE (test code = CREAT) 7.50 mg/dL 0.55-1.02 H Note change in reference range due to change in reagent. ALBUMIN (test code = ALB) 2.7 g/dL 3.4-5.0 L CALCIUM (test code = CA) 7.9 mg/dL 8.5-10.1 L PHOSPHORUS (test code = PHOS) 4.8 mg/dL 2.5-4.9 N RENAL FUNCTION [id number] 10:30:00* Test Item Value Reference Range Interpretation Comments SODIUM (test code = NA) 135 mmol/L 136-145 L POTASSIUM (test code = K) 5.1 mmol/L 3.5-5.1 N CHLORIDE (test code = CL) 96.0 mmol/L 98-107 L CARBON DIOXIDE (test code = CO2) mmol/L 21-32 ANION GAP (test code = GAP) 10-20 GLUCOSE (test code = GLU) mg/dL 74-106 BLOOD UREA NITROGEN (test code = BUN) mg/dL 7-18 CREATININE (test code = CREAT) mg/dL 0.55-1.02 ALBUMIN (test code = ALB) g/dL 3.4-5.0 CALCIUM (test code = CA) mg/dL 8.5-10.1 PHOSPHORUS (test code = PHOS) mg/dL 2.5-4.9 [id number] 07:20:00* Test Item Value Reference Range Interpretation Comments PHOSPHORUS (test code = PHOS) 4.6 mg/dL 2.5-4.9 N PROTHROMBIN [id number] 07:06:00* Test Item Value Reference Range Interpretation Comments PROTHROMBIN TIME PATIENT (test code = PTP) 33.3 seconds 9.0-14.0 H INTERNATIONAL NORMAL RATIO (test code = INR) 2.8 0.8-1.2 H The therapeutic range for oral anticoagulant therapy formost indications is an international normalized ratio (INR)of between 2.0 and 3.0. The recommended therapeutic INRrange for various clinical situations is listed below: Clinical Situation INR range Pulmonary e mbolism treatment (2.0-3.0)Venous thrombosis treatmentVenous thrombosis prophylaxis (high risk surgery)Prevention of systemic embolism from: Acute myocardial infarction Valvular heart disease Atrial fibrillation Mechanical prosthetic heart valves (2.5-3.5) IS PATIENT ON ANTICOAGULANTS? [employer] ANTICOAGULANTS [id number] 06:40:00* Test Item Value Reference Range Interpretation Comments GLUBED (test code = GLUBED) 119 mg/dL 74-106 H Performed by certified call center operator at [facility] [id number] 20:49:00* Test Item Value Reference Range Interpretation Comments GLUBED (test code = GLUBED) 146 mg/dL 74-106 H Performed by certified call center operator at [facility] [id number] 16:08:00* Test Item Value Reference Range Interpretation Comments GLUBED (test code = GLUBED) 120 mg/dL 74-106 H Performed by certified call center operator at [facility] [id number] 11:08:00* Test Item Value Reference Range Interpretation Comments GLUBED (test code = GLUBED) 176 mg/dL 74-106 H Performed by certified call center operator at [facility] PROTHROMBIN [id number] 08:45:00* Test Item Value Reference Range Interpretation Comments PROTHROMBIN TIME PATIENT (test code = PTP) 22.1 seconds 9.0-14.0 H INTERNATIONAL NORMAL RATIO (test code = INR) 1.9 0.8-1.2 H The therapeutic range for oral anticoagulant therapy formost indications is an international normalized ratio (INR)of between 2.0 and 3.0. The recommended therapeutic INRrange for various clinical situations is listed below: Clinical Situation INR range Pulmonary e mbolism treatment (2.0-3.0)Venous thrombosis treatmentVenous thrombosis prophylaxis (high risk surgery)Prevention of systemic embolism from: Acute myocardial infarction Valvular heart disease Atrial fibrillation Mechanical prosthetic heart valves (2.5-3.5) IS PATIENT ON ANTICOAGULANTS? [employer] ANTICOAGULANTS COUMADIN ARTIE PERKINS [facility] - CALLED TWICE LEFT HER PHONE AT [facility] & COULDNT FIND HER ON FLOOR. V.[id number].[id number] 09/18/[id number] 06:31:00* Test Item Value Reference Range Interpretation Comments GLUBED (test code = GLUBED) 136 mg/dL 74-106 H Performed by certified call center operator at [facility] [id number] 20:46:00* Test Item Value Reference Range Interpretation Comments GLUBED (test code = GLUBED) 167 mg/dL 74-106 H Performed by certified call center operator at [facility] - CT HEAD/BRAIN W/O [id number] 20:46:00 Name: ERIN SCHILLING [facility] : 1950 Age/S: 67 / F [address] [facility] Unit #: [id number] Loc: MIHIR [place] [address] Phys: Aisha Schuler MD Acct: [id number] Dis Date: Status: ADM IN PHONE #: [phone] Exam Date: 09/17/20182039 FAX #: [phone] Reason: dizziness EXAMS: CPT CODE: [id number] CT HEAD/BRAIN W/O CONT [id number] REASON FOR EXAM: dizziness EXAM ORDER DATE: 09/17/2018 5:04 PM Ordering Torito: Aisha Schuler MD PROCEDURE: - CT HEAD/BRAIN W/O CONT COMPARISON: 06/08/2018 FINDINGS: CT images of the brain were obtained without IV contrast. Dose modulation, iterative reconstruction, and/or weight based adjustment of the MA/KV was utilized to reduce the radiation dose to as low as reasonably achievable. Mild patchy low densities appearance of the paraventricular region noted consistent with nonspecific white matter disease. The chiang-white matter delineation is unremarkable. The ventricles, cisterns, and sulci are unremarkable. There is no evidence of hemorrhage, mass, mass effect. There is no evidence of acute infarct. The calvarium is intact. IMPRESSION: Nonspecific deep white matter disease. Small chronic left basal ganglia infarct. No acute findings at 2045 Reported and signed by: Miguel Macias M.D. CC: Alaina Alonzo; Aisha Schuler MD; Jaziel Alvarado DO Technologist:Hugh Hagan, RT(R)(CT) CTDI: DLP: Trnscb Date/Time: 09/17/2018 (2045) t.CHEOR.VTL Orig Print D/T: S: 09/17/2018 (2048) PAGE 1 Signed Report [id number] 16:32:00* Test Item Value Reference Range Interpretation Comments GLUBED (test code = GLUBED) 173 mg/dL 74-106 H Performed by certified call center operator at [facility] [id number] 11:19:00* Test Item Value Reference Range Interpretation Comments GLUBED (test code = GLUBED) 191 mg/dL 74-106 H Performed by certified call center operator at [facility] [id number] 06:17:00* Test Item Value Reference Range Interpretation Comments GLUBED (test code = GLUBED) 216 mg/dL 74-106 H Performed by certified call center operator at [facility] PROTHROMBIN [id number] 06:16:00* Test Item Value Reference Range Interpretation Comments PROTHROMBIN TIME PATIENT (test code = PTP) 19.1 seconds 9.0-14.0 H INTERNATIONAL NORMAL RATIO (test code = INR) 1.6 0.8-1.2 H The therapeutic range for oral anticoagulant therapy formost indications is an international normalized ratio (INR)of between 2.0 and 3.0. The recommended therapeutic INRrange for various clinical situations is listed below: Clinical Situation INR range Pulmonary e mbolism treatment (2.0-3.0)Venous thrombosis treatmentVenous thrombosis prophylaxis (high risk surgery)Prevention of systemic embolism from: Acute myocardial infarction Valvular heart disease Atrial fibrillation Mechanical prosthetic heart valves (2.5-3.5) IS PATIENT ON ANTICOAGULANTS? YLIST ANTICOAGULANTS [id number] 20:40:00* Test Item Value Reference Range Interpretation Comments GLUBED (test code = GLUBED) 122 mg/dL 74-106 H Performed by certified call center operator at [facility] [id number] 18:29:00* Test Item Value Reference Range Interpretation Comments GLUBED (test code = GLUBED) 151 mg/dL 74-106 H Performed by certified call center operator at [facility] [id number] 11:38:00* Test Item Value Reference Range Interpretation Comments GLUBED (test code = GLUBED) 154 mg/dL 74-106 H Performed by certified call center operator at [facility] BASIC METABOLIC [id number] 06:35:00* Test Item Value Reference Range Interpretation Comments SODIUM (test code = NA) 136 mmol/L 136-145 N POTASSIUM (test code = K) 4.3 mmol/L 3.5-5.1 N CHLORIDE (test code = CL) 98.0 mmol/L 98-107 N CARBON DIOXIDE (test code = CO2) 32.0 mmol/L 21-32 N ANION GAP (test code = GAP) 10.3 10-20 N GLUCOSE (test code = GLU) 124 mg/dL 74-106 H BLOOD UREA NITROGEN (test code = BUN) 37 mg/dL 7-18 H GLOMERULAR FILTRATION RATE (test code = GFR) 7 mL/min >=60 Estimated GFR by using Modified MDRD formula.Chronic kidney disease is defined as either kidney damageor GFR <60 mL/min/1.73 m2 for >3 months. CREATININE (test code = CREAT) 6.20 mg/dL 0.55-1.02 H Note change in reference range due to change in reagent. BUN/CREATININE RATIO (test code = BUN/CREA) 6.0 10-20 L CALCIUM (test code = CA) 8.3 mg/dL 8.5-10.1 L BASIC METABOLIC [id number] 06:29:00* Test Item Value Reference Range Interpretation Comments SODIUM (test code = NA) 136 mmol/L 136-145 N POTASSIUM (test code = K) 4.3 mmol/L 3.5-5.1 N CHLORIDE (test code = CL) 98.0 mmol/L 98-107 N CARBON DIOXIDE (test code = CO2) mmol/L 21-32 ANION GAP (test code = GAP) 10-20 GLUCOSE (test code = GLU) mg/dL 74-106 BLOOD UREA NITROGEN (test code = BUN) mg/dL 7-18 GLOMERULAR FILTRATION RATE (test code = GFR) mL/min >=60 CREATININE (test code = CREAT) mg/dL 0.55-1.02 BUN/CREATININE RATIO (test code = BUN/CREA) 10-20 CALCIUM (test code = CA) mg/dL 8.5-10.1 PROTHROMBIN [id number] 06:25:00* Test Item Value Reference Range Interpretation Comments PROTHROMBIN TIME PATIENT (test code = PTP) 15.6 seconds 9.0-14.0 H INTERNATIONAL NORMAL RATIO (test code = INR) 1.3 0.8-1.2 H The therapeutic range for oral anticoagulant therapy formost indications is an international normalized ratio (INR)of between 2.0 and 3.0. The recommended therapeutic INRrange for various clinical situations is listed below: Clinical Situation INR range Pulmonary e mbolism treatment (2.0-3.0)Venous thrombosis treatmentVenous thrombosis prophylaxis (high risk surgery)Prevention of systemic embolism from: Acute myocardial infarction Valvular heart disease Atrial fibrillation Mechanical prosthetic heart valves (2.5-3.5) IS PATIENT ON ANTICOAGULANTS? YLIST ANTICOAGULANTS [id number] 06:16:00* Test Item Value Reference Range Interpretation Comments GLUBED (test code = GLUBED) 129 mg/dL 74-106 H Performed by certified call center operator at [facility] CBC W/O [id number] 06:08:00* Test Item Value Reference Range Interpretation Comments WHITE BLOOD CELL (test code = WBC) 11.5 K/mm3 4.5-12.5 N RED BLOOD CELL (test code = RBC) 3.69 mill/mm3 3.7-5.2 L HEMOGLOBIN (test code = HGB) 10.6 gram/dL 11.5-15.5 L HEMATOCRIT (test code = HCT) 35.3 % 36.0-46.0 L MEAN CELL VOLUME (test code = MCV) 95.7 fL 80-98 N MEAN CELL HGB (test code = MCH) 28.7 picogram 27.0-33.0 N MEAN CELL HGB CONCETRATION (test code = MCHC) 30.0 gram/dL 33.0-36. 0 L RED CELL DISTRIBUTION WIDTH (test code = RDW) 14.6 % 11.6-16. 2 N PLATELET COUNT (test code = PLT) 251 K/mm3 150-450 N MEAN PLATELET VOLUME (test code = MPV) 9.1 fL 6.7-11.0 N [id number] 20:35:00* Test Item Value Reference Range Interpretation Comments GLUBED (test code = GLUBED) 151 mg/dL 74-106 H Performed by certified call center operator at [facility] [id number] 18:38:00* Test Item Value Reference Range Interpretation Comments GLYCOSYLATED HEMOGLOBIN (HA1C) (test code = GLYHGB) 8.8 % HbA1 4. 8-6.0 H ESTIMATED AVERAGE GLUCOSE (test code = EAG) 206 MG/DL T4 [id number] 18:38:00* Test Item Value Reference Range Interpretation Comments T4 FREE (test code = T4F) 1.39 ng/dL 0.76-1.46 N THYROID STIMULATING [id number] 18:38:00* Test Item Value Reference Range Interpretation Comments THYROID STIMULATING HORMONE (test code = TSH) 4.330 uIU/mL 0.36-3.7 4 H TSH REFERENCE RANGES: EUTHYROID: 0.35 - 4.3 mIU/mL HYPO : > 5.5 mIU/mL HYPER : < 0.35 mIU/mL [id number] 16:37:00* Test Item Value Reference Range Interpretation Comments GLUBED (test code = GLUBED) 266 mg/dL 74-106 H [facility] [id number] 11:25:00* Test Item Value Reference Range Interpretation Comments GLUBED (test code = GLUBED) 193 mg/dL 74-106 H [facility] PROTHROMBIN [id number] 07:42:00* Test Item Value Reference Range Interpretation Comments PROTHROMBIN TIME PATIENT (test code = PTP) 13.9 seconds 9.0-14.0 N INTERNATIONAL NORMAL RATIO (test code = INR) 1.2 0.8-1.2 N The therapeutic range for oral anticoagulant therapy formost indications is an international normalized ratio (INR)of between 2.0 and 3.0. The recommended therapeutic INRrange for various clinical situations is listed below: Clinical Situation INR range Pulmonary e mbolism treatment (2.0-3.0)Venous thrombosis treatmentVenous thrombosis prophylaxis (high risk surgery)Prevention of systemic embolism from: Acute myocardial infarction Valvular heart disease Atrial fibrillation Mechanical prosthetic heart valves (2.5-3.5) IS PATIENT ON ANTICOAGULANTS? YLIST ANTICOAGULANTS [id number] 06:43:00* Test Item Value Reference Range Interpretation Comments GLUBED (test code = GLUBED) 221 mg/dL 74-106 H Performed by certified call center operator at [facility] PROTHROMBIN [id number] 22:48:00* Test Item Value Reference Range Interpretation Comments PROTHROMBIN TIME PATIENT (test code = PTP) 13.1 seconds 9.0-14.0 N INTERNATIONAL NORMAL RATIO (test code = INR) 1.1 0.8-1.2 N The therapeutic range for oral anticoagulant therapy formost indications is an international normalized ratio (INR)of between 2.0 and 3.0. The recommended therapeutic INRrange for various clinical situations is listed below: Clinical Situation INR range Pulmonary e mbolism treatment (2.0-3.0)Venous thrombosis treatmentVenous thrombosis prophylaxis (high risk surgery)Prevention of systemic embolism from: Acute myocardial infarction Valvular heart disease Atrial fibrillation Mechanical prosthetic heart valves (2.5-3.5) IS PATIENT ON ANTICOAGULANTS? YLIST ANTICOAGULANTS [id number] 21:06:00* Test Item Value Reference Range Interpretation Comments GLUBED (test code = GLUBED) 176 mg/dL 74-106 H Performed by certified call center operator at [facility] [id number] 16:21:00* Test Item Value Reference Range Interpretation Comments GLUBED (test code = GLUBED) 234 mg/dL 74-106 H Performed by certified call center operator at [facility] BASIC METABOLIC [id number] 11:35:00* Test Item Value Reference Range Interpretation Comments SODIUM (test code = NA) 132 mmol/L 136-145 L POTASSIUM (test code = K) 4.6 mmol/L 3.5-5.1 N CHLORIDE (test code = CL) 93.0 mmol/L 98-107 L CARBON DIOXIDE (test code = CO2) 27.0 mmol/L 21-32 N ANION GAP (test code = GAP) 16.6 10-20 N GLUCOSE (test code = GLU) 217 mg/dL 74-106 H BLOOD UREA NITROGEN (test code = BUN) 54 mg/dL 7-18 H GLOMERULAR FILTRATION RATE (test code = GFR) 5 mL/min >=60 Estimated GFR by using Modified MDRD formula.Chronic kidney disease is defined as either kidney damageor GFR <60 mL/min/1.73 m2 for >3 months. CREATININE (test code = CREAT) 7.70 mg/dL 0.55-1.02 H Note change in reference range due to change in reagent. BUN/CREATININE RATIO (test code = BUN/CREA) 7.0 10-20 L CALCIUM (test code = CA) 8.4 mg/dL 8.5-10.1 L 09/14/18 1004BASIC METABOLIC [id number] 11:31:00* Test Item Value Reference Range Interpretation Comments SODIUM (test code = NA) 132 mmol/L 136-145 L POTASSIUM (test code = K) 4.6 mmol/L 3.5-5.1 N CHLORIDE (test code = CL) 93.0 mmol/L 98-107 L CARBON DIOXIDE (test code = CO2) mmol/L 21-32 ANION GAP (test code = GAP) 10-20 GLUCOSE (test code = GLU) mg/dL 74-106 BLOOD UREA NITROGEN (test code = BUN) mg/dL 7-18 GLOMERULAR FILTRATION RATE (test code = GFR) mL/min >=60 CREATININE (test code = CREAT) mg/dL 0.55-1.02 BUN/CREATININE RATIO (test code = BUN/CREA) 10-20 CALCIUM (test code = CA) mg/dL 8.5-10.1 09/14/18 [id number] 11:15:00* Test Item Value Reference Range Interpretation Comments GLUBED (test code = GLUBED) 207 mg/dL 74-106 H Performed by certified call center operator at [facility] CBC W/AUTO [id number] 11:15:00* Test Item Value Reference Range Interpretation Comments WHITE BLOOD CELL (test code = WBC) 11.3 K/mm3 4.5-12.5 N RED BLOOD CELL (test code = RBC) 3.68 mill/mm3 3.7-5.2 L HEMOGLOBIN (test code = HGB) 10.9 gram/dL 11.5-15.5 L HEMATOCRIT (test code = HCT) 34.3 % 36.0-46.0 L MEAN CELL VOLUME (test code = MCV) 93.2 fL 80-98 N MEAN CELL HGB (test code = MCH) 29.6 picogram 27.0-33.0 N MEAN CELL HGB CONCETRATION (test code = MCHC) 31.8 gram/dL 33.0-36. 0 L RED CELL DISTRIBUTION WIDTH (test code = RDW) 14.6 % 11.6-16. 2 N RED CELL DISTRIBUTION WIDTH SD (test code = RDW-SD) 50.3 fL 37 .0-51.0 N PLATELET COUNT (test code = PLT) 236 K/mm3 150-450 N MEAN PLATELET VOLUME (test code = MPV) 9.2 fL 6.7-11.0 N NEUTROPHIL % (test code = NT%) 79.1 % 39.0-69.0 H IMMATURE GRANULOCYTE % (test code = IG%) 3.6 % 0.0-5.0 N LYMPHOCYTE % (test code = LY%) 6.7 % 25.0-55.0 L MONOCYTE % (test code = MO%) 6.2 % 0.0-10.0 N EOSINOPHIL % (test code = EO%) 3.8 % 0.0-5.0 N BASOPHIL % (test code = BA%) 0.6 % 0.0-1.0 N NUCLEATED RBC % (test code = NRBC%) 0.0 % 0-0 N NEUTROPHIL # (test code = NT#) 8.90 K/mm3 1.8-7.7 H IMMATURE GRANULOCYTE # (test code = IG#) 0.40 x10 3/uL 0-0.03 H LYMPHOCYTE # (test code = LY#) 0.75 K/mm3 1.0-5.0 L MONOCYTE # (test code = MO#) 0.70 K/mm3 0-0.8 N EOSINOPHIL # (test code = EO#) 0.43 K/mm3 0.0-0.5 N BASOPHIL # (test code = BA#) 0.07 K/mm3 0.0-0.2 N NUCLEATED RBC # (test code = NRBC#) 0.00 K/mm3 0.0-0.1 N MANUAL DIFF REQUIRED (test code = MDIFF) NO [id number] 07:41:00* Test Item Value Reference Range Interpretation Comments GLUBED (test code = GLUBED) 254 mg/dL 74-106 H Performed by certified call center operator at [facility] [id number] 21:20:00* Test Item Value Reference Range Interpretation Comments GLUBED (test code = GLUBED) 139 mg/dL 74-106 H Performed by certified call center operator at [facility] [id number] 16:55:00* Test Item Value Reference Range Interpretation Comments GLUBED (test code = GLUBED) 217 mg/dL 74-106 H Performed by certified call center operator at [facility] [id number] 12:18:00* Test Item Value Reference Range Interpretation Comments GLUBED (test code = GLUBED) 311 mg/dL 74-106 H Performed by certified call center operator at [facility] PROTHROMBIN [id number] 09:02:00* Test Item Value Reference Range Interpretation Comments PROTHROMBIN TIME PATIENT (test code = PTP) 13.7 seconds 9.0-14.0 N INTERNATIONAL NORMAL RATIO (test code = INR) 1.2 0.8-1.2 N The therapeutic range for oral anticoagulant therapy formost indications is an international normalized ratio (INR)of between 2.0 and 3.0. The recommended therapeutic INRrange for various clinical situations is listed below: Clinical Situation INR range Pulmonary e mbolism treatment (2.0-3.0)Venous thrombosis treatmentVenous thrombosis prophylaxis (high risk surgery)Prevention of systemic embolism from: Acute myocardial infarction Valvular heart disease Atrial fibrillation Mechanical prosthetic heart valves (2.5-3.5) IS PATIENT ON ANTICOAGULANTS? YLIST ANTICOAGULANTS COUMADINPROTHROMBIN TIME 2018-09-13 06:44:00* Test Item Value Reference Range Interpretation Comments PROTHROMBIN TIME PATIENT (test code = PTP) 60.7 seconds 9.0-14.0 H INTERNATIONAL NORMAL RATIO (test code = INR) 5.1 0.8-1.2 HH Results called to [id number] by MIKI 09/09/18 0754Critical results verified and read back by Nurse? Y The therapeutic range for oral anticoagulant therapy formost indications is an international normalized ratio (INR)of between 2.0 and 3.0. The recommended therapeutic INRrange for various clinical situations is listed below: Clinical Situati on INR range Pulmonary embolism treatment (2.0-3.0)Venous thrombosis treatmentVenous thrombosis prophylaxis (high risk surgery)Prevention of systemic embolism from: Acute myocardial infarction Valvular heart disease Atrial fibrillation Mechanical prosthetic heart valves (2.5-3.5) IS PATIENT ON ANTICOAGULANTS? YLIST ANTICOAGULANTS [id number] 06:04:00* Test Item Value Reference Range Interpretation Comments GLUBED (test code = GLUBED) 171 mg/dL 74-106 H Performed by certified call center operator at [facility] AB HEPATITIS B [id number] 04:09:00* Test Item Value Reference Range Interpretation Comments AB HEPATITIS B SURFACE (test code = HBSAB) Non Reactive () Non Reactive: Inconsistent with immunity, less than 10 mIU/mL Reactive: Consistent with immunity, greater than 9.9 mIU/mLPerformed At: [facility] [id number] Kyle L MD Ph:[phone] [id number] 02:46:00* Test Item Value Reference Range Interpretation Comments GLUBED (test code = GLUBED) 216 mg/dL 74-106 H Performed by certified call center operator at [facility] [id number] 20:49:00* Test Item Value Reference Range Interpretation Comments GLUBED (test code = GLUBED) 206 mg/dL 74-106 H Performed by certified call center operator at [facility] ANTINUCLEAR ANTIBODIES [id number] 13:10:00* Test Item Value Reference Range Interpretation Comments ROXY SCREEN (test code = ANASCR) Negative Negative Performed At: [address] [id number] Mack MD Ph:[phone] QNS RECOLLECT FOR SENDOUTSV.LAB.AS4 09/07/18 1356ACUTE HEPATITIS [id number] 13:10:00* Test Item Value Reference Range Interpretation Comments AB HEPATITIS A IGM (test code = HAVMAB) Negative Negative AG HEPAT B SURF (test code = HBSAG) Negative Negative HEPATITIS B CORE ANTIBODY,IGM (test code = HBCMAB) Negative Neg ative AB HEPATITIS C (test code = HCVAB) 0.1 0.0-0.9 INFCE Result Units: s/co ratio Negative: < 0.8 Indeterminate: 0.8 - 0.9 Positive: > 0.9 The CDC recommends that a positive HCV antibody result be followed up with a HCV Nucleic Acid Amplification test ([id number]).Performed At: [address] [id number] Mack MD Ph:[phone] QNS RECOLLECT FOR SENDOUTSV.LAB.AS4 09/07/18 1356AB [id number] 13:10:00* Test Item Value Reference Range Interpretation Comments AB MITOCHONDRIAL (test code = MITOCHAB) EIA <1.0 QNS RECOLLECT FOR SENDOUTSV.LAB.AS4 09/07/18 1356AB ANTI-SMOOTH [id number] 13:10:00* Test Item Value Reference Range Interpretation Comments AB ANTI-SMOOTH MUSCLE (test code = SMOOTHAB) 10 Units 0-19 Negative 0 - 19 Weak positive 20 - 30 Moderate to strong positive >30 Actin Antibodies are found in 52-85% of patients with autoimmune hepatitis or chronic active hepatitis and in 22% of patients with primary biliary cirrhosis. QNS RECOLLECT FOR SENDOUTSV.LAB.[facility] 09/07/18 1356ANTINUCLEAR ANTIBODIES TITER 2018-09-12 13:10:00* Test Item Value Reference Range Interpretation Comments ROXY SCREEN (test code = ANASCR) Negative Negative Performed At: [address] [id number] Mack MD Ph:[phone] QNS RECOLLECT FOR SENDOUTSV.LAB.[facility] 09/07/18 1356ACUTE HEPATITIS [id number] 13:10:00* Test Item Value Reference Range Interpretation Comments AB HEPATITIS A IGM (test code = HAVMAB) Negative Negative AG HEPAT B SURF (test code = HBSAG) Negative Negative HEPATITIS B CORE ANTIBODY,IGM (test code = HBCMAB) Negative Neg ative AB HEPATITIS C (test code = HCVAB) 0.1 0.0-0.9 INFCE Result Units: s/co ratio Negative: < 0.8 Indeterminate: 0.8 - 0.9 Positive: > 0.9 The CDC recommends that a positive HCV antibody result be followed up with a HCV Nucleic Acid Amplification test ([id number]).Performed At: [address] [id number] Mack MD Ph:[phone] QNS RECOLLECT FOR SENDOUTSV.LAB.[facility] 09/07/18 1356AB [id number] 13:10:00* Test Item Value Reference Range Interpretation Comments AB MITOCHONDRIAL (test code = MITOCHAB) <20.0 Units 0.0-20.0 Negative 0.0 - 20.0 Equivocal 20.1 - 24.9 Positive >24.9Mitochondrial (M2) Antibodies are found in 90-96% ofpatients with primary biliary cirrhosis.Performed At: [address] [id number] Sanjai MD Ph:[phone] QNS RECOLLECT FOR SENDOUTSV.LAB.[facility] 09/07/18 1356AB ANTI-SMOOTH [id number] 13:10:00* Test Item Value Reference Range Interpretation Comments AB ANTI-SMOOTH MUSCLE (test code = SMOOTHAB) 10 Units 0-19 Negative 0 - 19 Weak positive 20 - 30 Moderate to strong positive >30 Actin Antibodies are found in 52-85% of patients with autoimmune hepatitis or chronic active hepatitis and in 22% of patients with primary biliary cirrhosis. QNS RECOLLECT FOR SENDOUTSV.LAB.AS4 09/07/18 [id number] 12:27:00* Test Item Value Reference Range Interpretation Comments GLUBED (test code = GLUBED) 227 mg/dL 74-106 H [facility] [id number] 06:30:00* Test Item Value Reference Range Interpretation Comments GLUBED (test code = GLUBED) 212 mg/dL 74-106 H Performed by certified call center operator at [facility] COMPREHENSIVE METABOLIC [id number] 05:50:00* Test Item Value Reference Range Interpretation Comments SODIUM (test code = NA) 130 mmol/L 136-145 L POTASSIUM (test code = K) 5.4 mmol/L 3.5-5.1 H CHLORIDE (test code = CL) 92.0 mmol/L 98-107 L CARBON DIOXIDE (test code = CO2) 29.0 mmol/L 21-32 N ANION GAP (test code = GAP) 14.4 10-20 N GLUCOSE (test code = GLU) 245 mg/dL 74-106 H BLOOD UREA NITROGEN (test code = BUN) 64 mg/dL 7-18 H RESULT VERIFIED BY REPEAT ANALYSIS GLOMERULAR FILTRATION RATE (test code = GFR) 5 mL/min >=60 Estimated GFR by using Modified MDRD formula.Chronic kidney disease is defined as either kidney damageor GFR <60 mL/min/1.73 m2 for >3 months. CREATININE (test code = CREAT) 8.60 mg/dL 0.55-1.02 H Note change in reference range due to change in reagent. BUN/CREATININE RATIO (test code = BUN/CREA) 7.4 10-20 L TOTAL PROTEIN (test code = PROT) 6.9 gram/dL 6.4-8.2 N ALBUMIN (test code = ALB) 2.1 g/dL 3.4-5.0 L GLOBULIN (test code = GLOB) 4.8 gram/dL 2.7-4.2 H ALBUMIN/GLOBULIN RATIO (test code = A/G) 0.4 0.75-1.50 L CALCIUM (test code = CA) 8.0 mg/dL 8.5-10.1 L BILIRUBIN TOTAL (test code = BILT) 0.50 mg/dL 0.0-1.0 N SGOT/AST (test code = AST) 25 IUnit/L 15-37 N SGPT/ALT (test code = ALT) 49 IUnit/L 12-78 N ALKALINE PHOSPHATASE TOTAL (test code = ALKP) 180 IUnit/L 45-117 H Note change in reference range due to change in reagent. COMPREHENSIVE METABOLIC [id number] 05:08:00* Test Item Value Reference Range Interpretation Comments SODIUM (test code = NA) 130 mmol/L 136-145 L POTASSIUM (test code = K) 5.4 mmol/L 3.5-5.1 H CHLORIDE (test code = CL) 92.0 mmol/L 98-107 L CARBON DIOXIDE (test code = CO2) mmol/L 21-32 ANION GAP (test code = GAP) 10-20 GLUCOSE (test code = GLU) mg/dL 74-106 BLOOD UREA NITROGEN (test code = BUN) mg/dL 7-18 GLOMERULAR FILTRATION RATE (test code = GFR) mL/min >=60 CREATININE (test code = CREAT) mg/dL 0.55-1.02 BUN/CREATININE RATIO (test code = BUN/CREA) 10-20 TOTAL PROTEIN (test code = PROT) gram/dL 6.4-8.2 ALBUMIN (test code = ALB) g/dL 3.4-5.0 GLOBULIN (test code = GLOB) gram/dL 2.7-4.2 ALBUMIN/GLOBULIN RATIO (test code = A/G) 0.75-1.50 CALCIUM (test code = CA) mg/dL 8.5-10.1 BILIRUBIN TOTAL (test code = BILT) mg/dL 0.0-1.0 SGOT/AST (test code = AST) IUnit/L 15-37 SGPT/ALT (test code = ALT) IUnit/L 12-78 ALKALINE PHOSPHATASE TOTAL (test code = ALKP) IUnit/L 45-117 PROTHROMBIN [id number] 04:53:00* Test Item Value Reference Range Interpretation Comments PROTHROMBIN TIME PATIENT (test code = PTP) 14.0 seconds 9.0-14.0 N INTERNATIONAL NORMAL RATIO (test code = INR) 1.2 0.8-1.2 N The therapeutic range for oral anticoagulant therapy formost indications is an international normalized ratio (INR)of between 2.0 and 3.0. The recommended therapeutic INRrange for various clinical situations is listed below: Clinical Situation INR range Pulmonary e mbolism treatment (2.0-3.0)Venous thrombosis treatmentVenous thrombosis prophylaxis (high risk surgery)Prevention of systemic embolism from: Acute myocardial infarction Valvular heart disease Atrial fibrillation Mechanical prosthetic heart valves (2.5-3.5) IS PATIENT ON ANTICOAGULANTS? YLIST ANTICOAGULANTS [id number] 21:43:00* Test Item Value Reference Range Interpretation Comments GLUBED (test code = GLUBED) 190 mg/dL 74-106 H Performed by certified call center operator at [facility] [id number] 17:26:00* Test Item Value Reference Range Interpretation Comments TROPONIN-I (test code = TROPI) <0.015 ng/mL 0-0.045 N [id number] 16:59:00* Test Item Value Reference Range Interpretation Comments GLUBED (test code = GLUBED) 244 mg/dL 74-106 H Performed by certified call center operator at [facility] - XR CHEST 1 [id number] 16:25:00 FAX: Alaina Ramos MD [phone] [place]: B St: ADM FAX: Tai Florez MD [phone] Name: ERIN SCHILLING [facility] : 1950 Age/S: 67/F [address] Unit #: [id number] Loc: [place] [address] Phys: Tai Florez MD Acct: [id number] Dis Date: Status: ADM IN PHONE #: [phone] Exam Date: 09/11/2018 1612 FAX #: [phone] Reason: CHEST PAIN EXAMS: CPT CODE: [id number] XR CHEST 1 V [id number] EXAM: Chest x-ray, one view; INFORMATION: Chest pain; IMPRESSION: Compared with a recent study from September 06, 2018, the heart is increased in size; it is slightly enlarged. There also slightly increased vascular markings consistent with mild left heart failure. at 2592 Reported and signed by: Sudeep Mattson M.D. CC: Alaina Alonzo; Tai Florez MD Technologist: Leigh Ann Mcintosh(Mirza) Trnscrd Date/Time/By: ([id number]) : By: IsiahGRW Orig Print D/T: S: 09/11/2018 (0473) PAGE 1 Signed Report HEPATIC FUNCTION [id number] 14:53:00* Test Item Value Reference Range Interpretation Comments TOTAL PROTEIN (test code = PROT) 5.9 gram/dL 6.4-8.2 L ALBUMIN (test code = ALB) 2.3 g/dL 3.4-5.0 L GLOBULIN (test code = GLOB) 3.6 gram/dL 2.7-4.2 N ALBUMIN/GLOBULIN RATIO (test code = A/G) 0.6 0.75-1.50 L BILIRUBIN TOTAL (test code = BILT) 0.40 mg/dL 0.0-1.0 N BILIRUBIN DIRECT (test code = BILD) 0.19 mg/dL 0.0-0.20 N SGOT/AST (test code = AST) 45 IUnit/L 15-37 H SGPT/ALT (test code = ALT) 78 IUnit/L 12-78 N ALKALINE PHOSPHATASE TOTAL (test code = ALKP) 210 IUnit/L 45-117 H Note change in reference range due to change in reagent. [id number] 12:18:00* Test Item Value Reference Range Interpretation Comments GLUBED (test code = GLUBED) 202 mg/dL 74-106 H Performed by certified call center operator at [facility] PROTHROMBIN [id number] 07:35:00* Test Item Value Reference Range Interpretation Comments PROTHROMBIN TIME PATIENT (test code = PTP) 13.8 seconds 9.0-14.0 N INTERNATIONAL NORMAL RATIO (test code = INR) 1.2 0.8-1.2 N The therapeutic range for oral anticoagulant therapy formost indications is an international normalized ratio (INR)of between 2.0 and 3.0. The recommended therapeutic INRrange for various clinical situations is listed below: Clinical Situation INR range Pulmonary e mbolism treatment (2.0-3.0)Venous thrombosis treatmentVenous thrombosis prophylaxis (high risk surgery)Prevention of systemic embolism from: Acute myocardial infarction Valvular heart disease Atrial fibrillation Mechanical prosthetic heart valves (2.5-3.5) IS PATIENT ON ANTICOAGULANTS? YLIST ANTICOAGULANTS COUMADINCBC W/O DIFF 2018-09-11 07:25:00* Test Item Value Reference Range Interpretation Comments WHITE BLOOD CELL (test code = WBC) 7.4 K/mm3 4.5-12.5 N RED BLOOD CELL (test code = RBC) 3.57 mill/mm3 3.7-5.2 L HEMOGLOBIN (test code = HGB) 10.5 gram/dL 11.5-15.5 L HEMATOCRIT (test code = HCT) 32.8 % 36.0-46.0 L MEAN CELL VOLUME (test code = MCV) 91.9 fL 80-98 N MEAN CELL HGB (test code = MCH) 29.4 picogram 27.0-33.0 N MEAN CELL HGB CONCETRATION (test code = MCHC) 32.0 gram/dL 33.0-36. 0 L RED CELL DISTRIBUTION WIDTH (test code = RDW) 15.1 % 11.6-16. 2 N PLATELET COUNT (test code = PLT) 188 K/mm3 150-450 N MEAN PLATELET VOLUME (test code = MPV) 9.8 fL 6.7-11.0 N BASIC METABOLIC [id number] 06:42:00* Test Item Value Reference Range Interpretation Comments SODIUM (test code = NA) 134 mmol/L 136-145 L POTASSIUM (test code = K) 4.2 mmol/L 3.5-5.1 N CHLORIDE (test code = CL) 96.0 mmol/L 98-107 L CARBON DIOXIDE (test code = CO2) 27.0 mmol/L 21-32 N ANION GAP (test code = GAP) 15.2 10-20 N GLUCOSE (test code = GLU) 184 mg/dL 74-106 H BLOOD UREA NITROGEN (test code = BUN) 53 mg/dL 7-18 H GLOMERULAR FILTRATION RATE (test code = GFR) 6 mL/min >=60 Estimated GFR by using Modified MDRD formula.Chronic kidney disease is defined as either kidney damageor GFR <60 mL/min/1.73 m2 for >3 months. CREATININE (test code = CREAT) 7.20 mg/dL 0.55-1.02 H Note change in reference range due to change in reagent. BUN/CREATININE RATIO (test code = BUN/CREA) 7.4 10-20 L CALCIUM (test code = CA) 8.5 mg/dL 8.5-10.1 N BASIC METABOLIC [id number] 06:37:00* Test Item Value Reference Range Interpretation Comments SODIUM (test code = NA) 134 mmol/L 136-145 L POTASSIUM (test code = K) 4.2 mmol/L 3.5-5.1 N CHLORIDE (test code = CL) 96.0 mmol/L 98-107 L CARBON DIOXIDE (test code = CO2) mmol/L 21-32 ANION GAP (test code = GAP) 10-20 GLUCOSE (test code = GLU) mg/dL 74-106 BLOOD UREA NITROGEN (test code = BUN) mg/dL 7-18 GLOMERULAR FILTRATION RATE (test code = GFR) mL/min >=60 CREATININE (test code = CREAT) mg/dL 0.55-1.02 BUN/CREATININE RATIO (test code = BUN/CREA) 10-20 CALCIUM (test code = CA) mg/dL 8.5-10.1 [id number] 06:15:00* Test Item Value Reference Range Interpretation Comments GLUBED (test code = GLUBED) 166 mg/dL 74-106 H Performed by certified call center operator at [facility] [id number] 21:02:00* Test Item Value Reference Range Interpretation Comments GLUBED (test code = GLUBED) 169 mg/dL 74-106 H Performed by certified call center operator at [facility] [id number] 18:23:00* Test Item Value Reference Range Interpretation Comments GLUBED (test code = GLUBED) 219 mg/dL 74-106 H Performed by certified call center operator at [facility] PROTHROMBIN [id number] 07:03:00* Test Item Value Reference Range Interpretation Comments PROTHROMBIN TIME PATIENT (test code = PTP) 23.5 seconds 9.0-14.0 H INTERNATIONAL NORMAL RATIO (test code = INR) 2.0 0.8-1.2 H The therapeutic range for oral anticoagulant therapy formost indications is an international normalized ratio (INR)of between 2.0 and 3.0. The recommended therapeutic INRrange for various clinical situations is listed below: Clinical Situation INR range Pulmonary e mbolism treatment (2.0-3.0)Venous thrombosis treatmentVenous thrombosis prophylaxis (high risk surgery)Prevention of systemic embolism from: Acute myocardial infarction Valvular heart disease Atrial fibrillation Mechanical prosthetic heart valves (2.5-3.5) IS PATIENT ON ANTICOAGULANTS? YLIST ANTICOAGULANTS [id number] 06:31:00* Test Item Value Reference Range Interpretation Comments GLUBED (test code = GLUBED) 209 mg/dL 74-106 H Performed by certified call center operator at [facility] [id number] 22:06:00* Test Item Value Reference Range Interpretation Comments GLUBED (test code = GLUBED) 200 mg/dL 74-106 H Performed by certified call center operator at [facility] CBC W/MANUAL [id number] 11:28:00* Test Item Value Reference Range Interpretation Comments WHITE BLOOD CELL (test code = WBC) 5.4 K/mm3 4.5-12.5 N RED BLOOD CELL (test code = RBC) 3.85 mill/mm3 3.7-5.2 N HEMOGLOBIN (test code = HGB) 11.1 gram/dL 11.5-15.5 L HEMATOCRIT (test code = HCT) 35.7 % 36.0-46.0 L MEAN CELL VOLUME (test code = MCV) 92.7 fL 80-98 N MEAN CELL HGB (test code = MCH) 28.8 picogram 27.0-33.0 N MEAN CELL HGB CONCETRATION (test code = MCHC) 31.1 gram/dL 33.0-36. 0 L RED CELL DISTRIBUTION WIDTH (test code = RDW) 15.3 % 11.6-16. 2 N RED CELL DISTRIBUTION WIDTH SD (test code = RDW-SD) 52.7 fL 37 .0-51.0 H PLATELET COUNT (test code = PLT) 157 K/mm3 150-450 N MEAN PLATELET VOLUME (test code = MPV) 10.1 fL 6.7-11.0 N IMMATURE GRANULOCYTE % (test code = IG%) 0.6 % 0.0-5.0 N NUCLEATED RBC % (test code = NRBC%) 0.0 % 0-0 N NEUTROPHIL # (test code = NT#) 3.85 K/mm3 1.8-7.7 N IMMATURE GRANULOCYTE # (test code = IG#) 0.03 x10 3/uL 0-0.03 N LYMPHOCYTE # (test code = LY#) 0.60 K/mm3 1.0-5.0 L MONOCYTE # (test code = MO#) 0.57 K/mm3 0-0.8 N EOSINOPHIL # (test code = EO#) 0.36 K/mm3 0.0-0.5 N BASOPHIL # (test code = BA#) 0.02 K/mm3 0.0-0.2 N NUCLEATED RBC # (test code = NRBC#) 0.00 K/mm3 0.0-0.1 N MANUAL DIFF REQUIRED (test code = MDIFF) YES STAIN ACCEPTABILITY (test code = STN ACCEPTABLE) STAIN ACCEPTABLE TOTAL CELLS COUNTED (test code = TCC) 115 #CELLS SEGMENTED NEUTROPHILS (test code = SEG) 65.2 % 39-69 N BAND NEUTROPHIL (test code = BAND) 3.5 % 0-10 N LYMPHOCYTE (test code = LYMPH) 8.7 % 25-55 L REACTIVE LYMPH (test code = RELYMPH) 0.9 % MONOCYTE (test code = MON) 10.4 % 0-10 H EOSINOPHIL (test code = EOS) 11.3 % 0.0-5.0 H BASOPHIL (test code = BASO) 0 % 0-1.0 N METAMYELOCYTE (test code = META) 0 % 0-0 N MYELOCYTE (test code = MYELO) 0 % 0.0-0.0 N PROMYELOCYTE (test code = PROM) 0 % 0-0 N POIKILOCYTOSIS (test code = POIK) 1+ ANISOCYTOSIS (test code = ANISO) 1+ PLATELET ESTIMATE (test code = PLTEST) ADEQUATE PLATELET MORPHOLOGY (test code = PLTMORPH) NORMAL IMMATURE FORMS (test code = IMMAT) 0 % 0-0 N [id number] 11:17:00* Test Item Value Reference Range Interpretation Comments GLUBED (test code = GLUBED) 216 mg/dL 74-106 H Performed by certified call center operator at [facility] ANTINUCLEAR ANTIBODIES [id number] 08:18:00* Test Item Value Reference Range Interpretation Comments ROXY SCREEN (test code = ANASCR) Negative Negative Performed At: [facility] [id number] Kyle L MD Ph:[phone] QNS RECOLLECT FOR SENDOUTSV.LAB.[facility] 09/07/18 1356ACUTE HEPATITIS [id number] 08:18:00* Test Item Value Reference Range Interpretation Comments AB HEPATITIS A IGM (test code = HAVMAB) Negative Negative AG HEPAT B SURF (test code = HBSAG) Negative Negative HEPATITIS B CORE ANTIBODY,IGM (test code = HBCMAB) Negative Neg ative AB HEPATITIS C (test code = HCVAB) 0.1 0.0-0.9 INFCE Result Units: s/co ratio Negative: < 0.8 Indeterminate: 0.8 - 0.9 Positive: > 0.9 The CDC recommends that a positive HCV antibody result be followed up with a HCV Nucleic Acid Amplification test (406122).Performed At: [facility] [address] [id number] Rush Mack MD Ph:[phone] QNS RECOLLECT FOR SENDOUTSV.LAB.[facility] 09/07/18 1356AB [id number] 08:18:00* Test Item Value Reference Range Interpretation Comments AB MITOCHONDRIAL (test code = MITOCHAB) EIA <1.0 QNS RECOLLECT FOR SENDOUTSV.LAB.[facility] 09/07/18 1356AB ANTI-SMOOTH [id number] 08:18:00* Test Item Value Reference Range Interpretation Comments AB ANTI-SMOOTH MUSCLE (test code = SMOOTHAB) Units QNS RECOLLECT FOR SENDOUTSV.LAB.[facility] 09/07/18 1356COMPREHENSIVE METABOLIC PANEL 2018-09-09 07:57:00* Test Item Value Reference Range Interpretation Comments SODIUM (test code = NA) 134 mmol/L 136-145 L POTASSIUM (test code = K) 5.3 mmol/L 3.5-5.1 H CHLORIDE (test code = CL) 99.0 mmol/L 98-107 N CARBON DIOXIDE (test code = CO2) 25.0 mmol/L 21-32 N ANION GAP (test code = GAP) 15.3 10-20 N GLUCOSE (test code = GLU) 136 mg/dL 74-106 H BLOOD UREA NITROGEN (test code = BUN) 57 mg/dL 7-18 H GLOMERULAR FILTRATION RATE (test code = GFR) 5 mL/min >=60 Estimated GFR by using Modified MDRD formula.Chronic kidney disease is defined as either kidney damageor GFR <60 mL/min/1.73 m2 for >3 months. CREATININE (test code = CREAT) 7.80 mg/dL 0.55-1.02 H Note change in reference range due to change in reagent. BUN/CREATININE RATIO (test code = BUN/CREA) 7.3 10-20 L TOTAL PROTEIN (test code = PROT) 6.7 gram/dL 6.4-8.2 N ALBUMIN (test code = ALB) 2.2 g/dL 3.4-5.0 L GLOBULIN (test code = GLOB) 4.5 gram/dL 2.7-4.2 H ALBUMIN/GLOBULIN RATIO (test code = A/G) 0.5 0.75-1.50 L CALCIUM (test code = CA) 8.1 mg/dL 8.5-10.1 L BILIRUBIN TOTAL (test code = BILT) 0.50 mg/dL 0.0-1.0 N SGOT/AST (test code = AST) 147 IUnit/L 15-37 H SGPT/ALT (test code = ALT) 152 IUnit/L 12-78 H ALKALINE PHOSPHATASE TOTAL (test code = ALKP) 263 IUnit/L 45-117 H Note change in reference range due to change in reagent. PROTHROMBIN [id number] 07:55:00* Test Item Value Reference Range Interpretation Comments PROTHROMBIN TIME PATIENT (test code = PTP) 60.7 seconds 9.0-14.0 H INTERNATIONAL NORMAL RATIO (test code = INR) 5.1 0.8-1.2 Results called to [id number] by MIKI 09/09/18 0754Critical results verified and read back by Nurse? The therapeutic range for oral anticoagulant therapy formost indications is an international normalized ratio (INR)of between 2.0 and 3.0. The recommended therapeutic INRrange for various clinical situations is listed below: Clinical Situation INR range Pulmonary embolism treatment (2.0-3.0)Venous thrombosis treatmentVenous thrombosis prophylaxis (high risk surgery)Prevention of systemic embolism from: Acute myocardial infarction Valvular heart disease Atrial fibrillation Mechanical prosthetic heart valves (2.5-3.5) IS PATIENT ON ANTICOAGULANTS? YLIST ANTICOAGULANTS COUMADINCBC W/MANUAL DIFF 2018-09-09 07:45:00* Test Item Value Reference Range Interpretation Comments WHITE BLOOD CELL (test code = WBC) 5.4 K/mm3 4.5-12.5 N RED BLOOD CELL (test code = RBC) 3.85 mill/mm3 3.7-5.2 N HEMOGLOBIN (test code = HGB) 11.1 gram/dL 11.5-15.5 L HEMATOCRIT (test code = HCT) 35.7 % 36.0-46.0 L MEAN CELL VOLUME (test code = MCV) 92.7 fL 80-98 N MEAN CELL HGB (test code = MCH) 28.8 picogram 27.0-33.0 N MEAN CELL HGB CONCETRATION (test code = MCHC) 31.1 gram/dL 33.0-36. 0 L RED CELL DISTRIBUTION WIDTH (test code = RDW) 15.3 % 11.6-16. 2 N RED CELL DISTRIBUTION WIDTH SD (test code = RDW-SD) 52.7 fL 37 .0-51.0 H PLATELET COUNT (test code = PLT) 157 K/mm3 150-450 N MEAN PLATELET VOLUME (test code = MPV) 10.1 fL 6.7-11.0 N IMMATURE GRANULOCYTE % (test code = IG%) 0.6 % 0.0-5.0 N NUCLEATED RBC % (test code = NRBC%) 0.0 % 0-0 N NEUTROPHIL # (test code = NT#) 3.85 K/mm3 1.8-7.7 N IMMATURE GRANULOCYTE # (test code = IG#) 0.03 x10 3/uL 0-0.03 N LYMPHOCYTE # (test code = LY#) 0.60 K/mm3 1.0-5.0 L MONOCYTE # (test code = MO#) 0.57 K/mm3 0-0.8 N EOSINOPHIL # (test code = EO#) 0.36 K/mm3 0.0-0.5 N BASOPHIL # (test code = BA#) 0.02 K/mm3 0.0-0.2 N NUCLEATED RBC # (test code = NRBC#) 0.00 K/mm3 0.0-0.1 N MANUAL DIFF REQUIRED (test code = MDIFF) YES STAIN ACCEPTABILITY (test code = STN ACCEPTABLE) TOTAL CELLS COUNTED (test code = TCC) #CELLS SEGMENTED NEUTROPHILS (test code = SEG) % 39-69 LYMPHOCYTE (test code = LYMPH) % 25-55 MONOCYTE (test code = MON) % 0-10 EOSINOPHIL (test code = EOS) % 0.0-5.0 CABOT RINGS (test code = CAB) MORPHOLOGY COMMENT (test code = MOC) PLATELET ESTIMATE (test code = PLTEST) PLATELET MORPHOLOGY (test code = PLTMORPH) CBC W/MANUAL [id number] 07:45:00* Test Item Value Reference Range Interpretation Comments WHITE BLOOD CELL (test code = WBC) 5.4 K/mm3 4.5-12.5 N RED BLOOD CELL (test code = RBC) 3.85 mill/mm3 3.7-5.2 N HEMOGLOBIN (test code = HGB) 11.1 gram/dL 11.5-15.5 L HEMATOCRIT (test code = HCT) 35.7 % 36.0-46.0 L MEAN CELL VOLUME (test code = MCV) 92.7 fL 80-98 N MEAN CELL HGB (test code = MCH) 28.8 picogram 27.0-33.0 N MEAN CELL HGB CONCETRATION (test code = MCHC) 31.1 gram/dL 33.0-36. 0 L RED CELL DISTRIBUTION WIDTH (test code = RDW) 15.3 % 11.6-16. 2 N RED CELL DISTRIBUTION WIDTH SD (test code = RDW-SD) 52.7 fL 37 .0-51.0 H PLATELET COUNT (test code = PLT) 157 K/mm3 150-450 N MEAN PLATELET VOLUME (test code = MPV) 10.1 fL 6.7-11.0 N IMMATURE GRANULOCYTE % (test code = IG%) 0.6 % 0.0-5.0 N NUCLEATED RBC % (test code = NRBC%) 0.0 % 0-0 N NEUTROPHIL # (test code = NT#) 3.85 K/mm3 1.8-7.7 N IMMATURE GRANULOCYTE # (test code = IG#) 0.03 x10 3/uL 0-0.03 N LYMPHOCYTE # (test code = LY#) 0.60 K/mm3 1.0-5.0 L MONOCYTE # (test code = MO#) 0.57 K/mm3 0-0.8 N EOSINOPHIL # (test code = EO#) 0.36 K/mm3 0.0-0.5 N BASOPHIL # (test code = BA#) 0.02 K/mm3 0.0-0.2 N NUCLEATED RBC # (test code = NRBC#) 0.00 K/mm3 0.0-0.1 N MANUAL DIFF REQUIRED (test code = MDIFF) YES STAIN ACCEPTABILITY (test code = STN ACCEPTABLE) TOTAL CELLS COUNTED (test code = TCC) #CELLS SEGMENTED NEUTROPHILS (test code = SEG) % 39-69 LYMPHOCYTE (test code = LYMPH) % 25-55 MONOCYTE (test code = MON) % 0-10 EOSINOPHIL (test code = EOS) % 0.0-5.0 CABOT RINGS (test code = CAB) MORPHOLOGY COMMENT (test code = MOC) PLATELET ESTIMATE (test code = PLTEST) PLATELET MORPHOLOGY (test code = PLTMORPH) CBC W/MANUAL [id number] 07:45:00* Test Item Value Reference Range Interpretation Comments WHITE BLOOD CELL (test code = WBC) 5.4 K/mm3 4.5-12.5 N RED BLOOD CELL (test code = RBC) 3.85 mill/mm3 3.7-5.2 N HEMOGLOBIN (test code = HGB) 11.1 gram/dL 11.5-15.5 L HEMATOCRIT (test code = HCT) 35.7 % 36.0-46.0 L MEAN CELL VOLUME (test code = MCV) 92.7 fL 80-98 N MEAN CELL HGB (test code = MCH) 28.8 picogram 27.0-33.0 N MEAN CELL HGB CONCETRATION (test code = MCHC) 31.1 gram/dL 33.0-36. 0 L RED CELL DISTRIBUTION WIDTH (test code = RDW) 15.3 % 11.6-16. 2 N RED CELL DISTRIBUTION WIDTH SD (test code = RDW-SD) 52.7 fL 37 .0-51.0 H PLATELET COUNT (test code = PLT) 157 K/mm3 150-450 N MEAN PLATELET VOLUME (test code = MPV) 10.1 fL 6.7-11.0 N IMMATURE GRANULOCYTE % (test code = IG%) 0.6 % 0.0-5.0 N NUCLEATED RBC % (test code = NRBC%) 0.0 % 0-0 N NEUTROPHIL # (test code = NT#) 3.85 K/mm3 1.8-7.7 N IMMATURE GRANULOCYTE # (test code = IG#) 0.03 x10 3/uL 0-0.03 N LYMPHOCYTE # (test code = LY#) 0.60 K/mm3 1.0-5.0 L MONOCYTE # (test code = MO#) 0.57 K/mm3 0-0.8 N EOSINOPHIL # (test code = EO#) 0.36 K/mm3 0.0-0.5 N BASOPHIL # (test code = BA#) 0.02 K/mm3 0.0-0.2 N NUCLEATED RBC # (test code = NRBC#) 0.00 K/mm3 0.0-0.1 N MANUAL DIFF REQUIRED (test code = MDIFF) YES STAIN ACCEPTABILITY (test code = STN ACCEPTABLE) TOTAL CELLS COUNTED (test code = TCC) #CELLS SEGMENTED NEUTROPHILS (test code = SEG) % 39-69 LYMPHOCYTE (test code = LYMPH) % 25-55 MONOCYTE (test code = MON) % 0-10 EOSINOPHIL (test code = EOS) % 0.0-5.0 MORPHOLOGY COMMENT (test code = MOC) PLATELET ESTIMATE (test code = PLTEST) PLATELET MORPHOLOGY (test code = PLTMORPH) CBC W/MANUAL [id number] 07:45:00* Test Item Value Reference Range Interpretation Comments WHITE BLOOD CELL (test code = WBC) 5.4 K/mm3 4.5-12.5 N RED BLOOD CELL (test code = RBC) 3.85 mill/mm3 3.7-5.2 N HEMOGLOBIN (test code = HGB) 11.1 gram/dL 11.5-15.5 L HEMATOCRIT (test code = HCT) 35.7 % 36.0-46.0 L MEAN CELL VOLUME (test code = MCV) 92.7 fL 80-98 N MEAN CELL HGB (test code = MCH) 28.8 picogram 27.0-33.0 N MEAN CELL HGB CONCETRATION (test code = MCHC) 31.1 gram/dL 33.0-36. 0 L RED CELL DISTRIBUTION WIDTH (test code = RDW) 15.3 % 11.6-16. 2 N RED CELL DISTRIBUTION WIDTH SD (test code = RDW-SD) 52.7 fL 37 .0-51.0 H PLATELET COUNT (test code = PLT) 157 K/mm3 150-450 N MEAN PLATELET VOLUME (test code = MPV) 10.1 fL 6.7-11.0 N IMMATURE GRANULOCYTE % (test code = IG%) 0.6 % 0.0-5.0 N NUCLEATED RBC % (test code = NRBC%) 0.0 % 0-0 N NEUTROPHIL # (test code = NT#) 3.85 K/mm3 1.8-7.7 N IMMATURE GRANULOCYTE # (test code = IG#) 0.03 x10 3/uL 0-0.03 N LYMPHOCYTE # (test code = LY#) 0.60 K/mm3 1.0-5.0 L MONOCYTE # (test code = MO#) 0.57 K/mm3 0-0.8 N EOSINOPHIL # (test code = EO#) 0.36 K/mm3 0.0-0.5 N BASOPHIL # (test code = BA#) 0.02 K/mm3 0.0-0.2 N NUCLEATED RBC # (test code = NRBC#) 0.00 K/mm3 0.0-0.1 N MANUAL DIFF REQUIRED (test code = MDIFF) YES STAIN ACCEPTABILITY (test code = STN ACCEPTABLE) TOTAL CELLS COUNTED (test code = TCC) #CELLS SEGMENTED NEUTROPHILS (test code = SEG) % 39-69 LYMPHOCYTE (test code = LYMPH) % 25-55 MONOCYTE (test code = MON) % 0-10 MORPHOLOGY COMMENT (test code = MOC) PLATELET ESTIMATE (test code = PLTEST) PLATELET MORPHOLOGY (test code = PLTMORPH) CBC W/MANUAL [id number] 07:45:00* Test Item Value Reference Range Interpretation Comments WHITE BLOOD CELL (test code = WBC) 5.4 K/mm3 4.5-12.5 N RED BLOOD CELL (test code = RBC) 3.85 mill/mm3 3.7-5.2 N HEMOGLOBIN (test code = HGB) 11.1 gram/dL 11.5-15.5 L HEMATOCRIT (test code = HCT) 35.7 % 36.0-46.0 L MEAN CELL VOLUME (test code = MCV) 92.7 fL 80-98 N MEAN CELL HGB (test code = MCH) 28.8 picogram 27.0-33.0 N MEAN CELL HGB CONCETRATION (test code = MCHC) 31.1 gram/dL 33.0-36. 0 L RED CELL DISTRIBUTION WIDTH (test code = RDW) 15.3 % 11.6-16. 2 N RED CELL DISTRIBUTION WIDTH SD (test code = RDW-SD) 52.7 fL 37 .0-51.0 H PLATELET COUNT (test code = PLT) 157 K/mm3 150-450 N MEAN PLATELET VOLUME (test code = MPV) 10.1 fL 6.7-11.0 N IMMATURE GRANULOCYTE % (test code = IG%) 0.6 % 0.0-5.0 N NUCLEATED RBC % (test code = NRBC%) 0.0 % 0-0 N NEUTROPHIL # (test code = NT#) 3.85 K/mm3 1.8-7.7 N IMMATURE GRANULOCYTE # (test code = IG#) 0.03 x10 3/uL 0-0.03 N LYMPHOCYTE # (test code = LY#) 0.60 K/mm3 1.0-5.0 L MONOCYTE # (test code = MO#) 0.57 K/mm3 0-0.8 N EOSINOPHIL # (test code = EO#) 0.36 K/mm3 0.0-0.5 N BASOPHIL # (test code = BA#) 0.02 K/mm3 0.0-0.2 N NUCLEATED RBC # (test code = NRBC#) 0.00 K/mm3 0.0-0.1 N MANUAL DIFF REQUIRED (test code = MDIFF) YES STAIN ACCEPTABILITY (test code = STN ACCEPTABLE) TOTAL CELLS COUNTED (test code = TCC) #CELLS SEGMENTED NEUTROPHILS (test code = SEG) % 39-69 LYMPHOCYTE (test code = LYMPH) % 25-55 MONOCYTE (test code = MON) % 0-10 EOSINOPHIL (test code = EOS) % 0.0-5.0 CABOT RINGS (test code = CAB) MORPHOLOGY COMMENT (test code = MOC) PLATELET ESTIMATE (test code = PLTEST) PLATELET MORPHOLOGY (test code = PLTMORPH) COMPREHENSIVE METABOLIC [id number] 07:42:00* Test Item Value Reference Range Interpretation Comments SODIUM (test code = NA) 134 mmol/L 136-145 L POTASSIUM (test code = K) 5.3 mmol/L 3.5-5.1 H CHLORIDE (test code = CL) 99.0 mmol/L 98-107 N CARBON DIOXIDE (test code = CO2) mmol/L 21-32 ANION GAP (test code = GAP) 10-20 GLUCOSE (test code = GLU) mg/dL 74-106 BLOOD UREA NITROGEN (test code = BUN) mg/dL 7-18 GLOMERULAR FILTRATION RATE (test code = GFR) mL/min >=60 CREATININE (test code = CREAT) mg/dL 0.55-1.02 BUN/CREATININE RATIO (test code = BUN/CREA) 10-20 TOTAL PROTEIN (test code = PROT) gram/dL 6.4-8.2 ALBUMIN (test code = ALB) g/dL 3.4-5.0 GLOBULIN (test code = GLOB) gram/dL 2.7-4.2 ALBUMIN/GLOBULIN RATIO (test code = A/G) 0.75-1.50 CALCIUM (test code = CA) mg/dL 8.5-10.1 BILIRUBIN TOTAL (test code = BILT) mg/dL 0.0-1.0 SGOT/AST (test code = AST) IUnit/L 15-37 SGPT/ALT (test code = ALT) IUnit/L 12-78 ALKALINE PHOSPHATASE TOTAL (test code = ALKP) IUnit/L 45-117 ANTINUCLEAR ANTIBODIES [id number] 07:22:00* Test Item Value Reference Range Interpretation Comments ROXY SCREEN (test code = ANASCR) QNS RECOLLECT FOR SENDOUTSV.LAB.[facility]4 09/07/18 1356ACUTE HEPATITIS [id number] 07:22:00* Test Item Value Reference Range Interpretation Comments AB HEPATITIS A IGM (test code = HAVMAB) Negative Negative AG HEPAT B SURF (test code = HBSAG) Negative Negative HEPATITIS B CORE ANTIBODY,IGM (test code = HBCMAB) Negative Neg ative AB HEPATITIS C (test code = HCVAB) 0.1 0.0-0.9 INFCE Result Units: s/co ratio Negative: < 0.8 Indeterminate: 0.8 - 0.9 Positive: > 0.9 The CDC recommends that a positive HCV antibody result be followed up with a HCV Nucleic Acid Amplification test ([id number]).Performed At: [facility] [id number] Rush Mack MD Ph:[phone] QNS RECOLLECT FOR SENDOUTSV.LAB.[facility] 09/07/18 1356AB [id number] 07:22:00* Test Item Value Reference Range Interpretation Comments AB MITOCHONDRIAL (test code = MITOCHAB) EIA <1.0 QNS RECOLLECT FOR SENDOUTSV.LAB.[facility] 09/07/18 1356AB ANTI-SMOOTH [id number] 07:22:00* Test Item Value Reference Range Interpretation Comments AB ANTI-SMOOTH MUSCLE (test code = SMOOTHAB) Units QNS RECOLLECT FOR SENDOUTSV.LAB.[facility] 09/07/18 [id number] 06:02:00* Test Item Value Reference Range Interpretation Comments GLUBED (test code = GLUBED) 147 mg/dL 74-106 H Performed by certified call center operator at [facility] [id number] 21:52:00* Test Item Value Reference Range Interpretation Comments GLUBED (test code = GLUBED) 184 mg/dL 74-106 H Performed by certified call center operator at [facility] [id number] 19:10:00* Test Item Value Reference Range Interpretation Comments AMMONIA (test code = AMM) < 10 umol/L 11-32 L [id number] 16:57:00* Test Item Value Reference Range Interpretation Comments GLUBED (test code = GLUBED) 154 mg/dL 74-106 H Performed by certified call center operator at [facility] [id number] 12:53:00* Test Item Value Reference Range Interpretation Comments GLUBED (test code = GLUBED) 173 mg/dL 74-106 H Performed by certified call center operator at [facility] [id number] 10:49:00* Test Item Value Reference Range Interpretation Comments GLUBED (test code = GLUBED) 175 mg/dL 74-106 H Performed by certified call center operator at [facility] CBC W/MANUAL [id number] 06:44:00* Test Item Value Reference Range Interpretation Comments WHITE BLOOD CELL (test code = WBC) 5.7 K/mm3 4.5-12.5 N RED BLOOD CELL (test code = RBC) 4.12 mill/mm3 3.7-5.2 N HEMOGLOBIN (test code = HGB) 11.8 gram/dL 11.5-15.5 N HEMATOCRIT (test code = HCT) 38.7 % 36.0-46.0 N MEAN CELL VOLUME (test code = MCV) 93.9 fL 80-98 N MEAN CELL HGB (test code = MCH) 28.6 picogram 27.0-33.0 N MEAN CELL HGB CONCETRATION (test code = MCHC) 30.5 gram/dL 33.0-36. 0 L RED CELL DISTRIBUTION WIDTH (test code = RDW) 15.3 % 11.6-16. 2 N RED CELL DISTRIBUTION WIDTH SD (test code = RDW-SD) 53.1 fL 37 .0-51.0 H PLATELET COUNT (test code = PLT) 167 K/mm3 150-450 N MEAN PLATELET VOLUME (test code = MPV) 9.9 fL 6.7-11.0 N IMMATURE GRANULOCYTE % (test code = IG%) 0.3 % 0.0-5.0 N NUCLEATED RBC % (test code = NRBC%) 0.0 % 0-0 N NEUTROPHIL # (test code = NT#) 4.22 K/mm3 1.8-7.7 N IMMATURE GRANULOCYTE # (test code = IG#) 0.02 x10 3/uL 0-0.03 N LYMPHOCYTE # (test code = LY#) 0.76 K/mm3 1.0-5.0 L MONOCYTE # (test code = MO#) 0.56 K/mm3 0-0.8 N EOSINOPHIL # (test code = EO#) 0.13 K/mm3 0.0-0.5 N BASOPHIL # (test code = BA#) 0.03 K/mm3 0.0-0.2 N NUCLEATED RBC # (test code = NRBC#) 0.00 K/mm3 0.0-0.1 N MANUAL DIFF REQUIRED (test code = MDIFF) YES STAIN ACCEPTABILITY (test code = STN ACCEPTABLE) STAIN ACCEPTABLE TOTAL CELLS COUNTED (test code = TCC) 114 #CELLS SEGMENTED NEUTROPHILS (test code = SEG) 84.2 % 39-69 H BAND NEUTROPHIL (test code = BAND) 0 % 0-10 N LYMPHOCYTE (test code = LYMPH) 9.6 % 25-55 L REACTIVE LYMPH (test code = RELYMPH) 0 % MONOCYTE (test code = MON) 5.3 % 0-10 N EOSINOPHIL (test code = EOS) 0.9 % 0.0-5.0 N BASOPHIL (test code = BASO) 0 % 0-1.0 N METAMYELOCYTE (test code = META) 0 % 0-0 N MYELOCYTE (test code = MYELO) 0 % 0.0-0.0 N PROMYELOCYTE (test code = PROM) 0 % 0-0 N MORPHOLOGY COMMENT (test code = MOC) NORMAL PLATELET ESTIMATE (test code = PLTEST) ADEQUATE PLATELET MORPHOLOGY (test code = PLTMORPH) NORMAL IMMATURE FORMS (test code = IMMAT) 0 % 0-0 N PT SLEEPING, COMEBACK V.LAB.KW 09/08/18 0332COMPREHENSIVE METABOLIC PANEL 2018-09-08 06:28:00* Test Item Value Reference Range Interpretation Comments SODIUM (test code = NA) 134 mmol/L 136-145 L POTASSIUM (test code = K) 5.0 mmol/L 3.5-5.1 N CHLORIDE (test code = CL) 97.0 mmol/L 98-107 L CARBON DIOXIDE (test code = CO2) 27.0 mmol/L 21-32 N ANION GAP (test code = GAP) 15.0 10-20 N GLUCOSE (test code = GLU) 167 mg/dL 74-106 H BLOOD UREA NITROGEN (test code = BUN) 40 mg/dL 7-18 H RESULT VERIFIED BY REPEAT ANALYSIS GLOMERULAR FILTRATION RATE (test code = GFR) 7 mL/min >=60 Estimated GFR by using Modified MDRD formula.Chronic kidney disease is defined as either kidney damageor GFR <60 mL/min/1.73 m2 for >3 months. CREATININE (test code = CREAT) 6.20 mg/dL 0.55-1.02 H Note change in reference range due to change in reagent. BUN/CREATININE RATIO (test code = BUN/CREA) 6.5 10-20 L TOTAL PROTEIN (test code = PROT) 6.9 gram/dL 6.4-8.2 N ALBUMIN (test code = ALB) 2.5 g/dL 3.4-5.0 L GLOBULIN (test code = GLOB) 4.4 gram/dL 2.7-4.2 H ALBUMIN/GLOBULIN RATIO (test code = A/G) 0.6 0.75-1.50 L CALCIUM (test code = CA) 8.4 mg/dL 8.5-10.1 L BILIRUBIN TOTAL (test code = BILT) 0.80 mg/dL 0.0-1.0 N SGOT/AST (test code = AST) 122 IUnit/L 15-37 H SGPT/ALT (test code = ALT) 243 IUnit/L 12-78 H ALKALINE PHOSPHATASE TOTAL (test code = ALKP) 335 IUnit/L 45-117 H Note change in reference range due to change in reagent. PT SLEEPING, COMEBACK V.LAB.KW 09/08/18 0331COMPREHENSIVE METABOLIC PANEL 2018-09-08 06:15:00* Test Item Value Reference Range Interpretation Comments SODIUM (test code = NA) 134 mmol/L 136-145 L POTASSIUM (test code = K) 5.0 mmol/L 3.5-5.1 N CHLORIDE (test code = CL) 97.0 mmol/L 98-107 L CARBON DIOXIDE (test code = CO2) mmol/L 21-32 ANION GAP (test code = GAP) 10-20 GLUCOSE (test code = GLU) mg/dL 74-106 BLOOD UREA NITROGEN (test code = BUN) mg/dL 7-18 GLOMERULAR FILTRATION RATE (test code = GFR) mL/min >=60 CREATININE (test code = CREAT) mg/dL 0.55-1.02 BUN/CREATININE RATIO (test code = BUN/CREA) 10-20 TOTAL PROTEIN (test code = PROT) gram/dL 6.4-8.2 ALBUMIN (test code = ALB) g/dL 3.4-5.0 GLOBULIN (test code = GLOB) gram/dL 2.7-4.2 ALBUMIN/GLOBULIN RATIO (test code = A/G) 0.75-1.50 CALCIUM (test code = CA) mg/dL 8.5-10.1 BILIRUBIN TOTAL (test code = BILT) mg/dL 0.0-1.0 SGOT/AST (test code = AST) IUnit/L 15-37 SGPT/ALT (test code = ALT) IUnit/L 12-78 ALKALINE PHOSPHATASE TOTAL (test code = ALKP) IUnit/L 45-117 PT SLEEPING, COMEBACK V.LAB. 09/08/18 0331PROTHROMBIN [id number] 06:12:00 * Test Item Value Reference Range Interpretation Comments PROTHROMBIN TIME PATIENT (test code = PTP) 38.3 seconds 9.0-14.0 H INTERNATIONAL NORMAL RATIO (test code = INR) 3.2 0.8-1.2 H The therapeutic range for oral anticoagulant therapy formost indications is an international normalized ratio (INR)of between 2.0 and 3.0. The recommended therapeutic INRrange for various clinical situations is listed below: Clinical Situation INR range Pulmonary e mbolism treatment (2.0-3.0)Venous thrombosis treatmentVenous thrombosis prophylaxis (high risk surgery)Prevention of systemic embolism from: Acute myocardial infarction Valvular heart disease Atrial fibrillation Mechanical prosthetic heart valves (2.5-3.5) [facility] 09/08/18 0331IS PATIENT ON ANTICOAGULANTS? NCBC W/MANUAL [id number] 06:01:00* Test Item Value Reference Range Interpretation Comments WHITE BLOOD CELL (test code = WBC) 5.7 K/mm3 4.5-12.5 N RED BLOOD CELL (test code = RBC) 4.12 mill/mm3 3.7-5.2 N HEMOGLOBIN (test code = HGB) 11.8 gram/dL 11.5-15.5 N HEMATOCRIT (test code = HCT) 38.7 % 36.0-46.0 N MEAN CELL VOLUME (test code = MCV) 93.9 fL 80-98 N MEAN CELL HGB (test code = MCH) 28.6 picogram 27.0-33.0 N MEAN CELL HGB CONCETRATION (test code = MCHC) 30.5 gram/dL 33.0-36. 0 L RED CELL DISTRIBUTION WIDTH (test code = RDW) 15.3 % 11.6-16. 2 N RED CELL DISTRIBUTION WIDTH SD (test code = RDW-SD) 53.1 fL 37 .0-51.0 H PLATELET COUNT (test code = PLT) 167 K/mm3 150-450 N MEAN PLATELET VOLUME (test code = MPV) 9.9 fL 6.7-11.0 N IMMATURE GRANULOCYTE % (test code = IG%) 0.3 % 0.0-5.0 N NUCLEATED RBC % (test code = NRBC%) 0.0 % 0-0 N NEUTROPHIL # (test code = NT#) 4.22 K/mm3 1.8-7.7 N IMMATURE GRANULOCYTE # (test code = IG#) 0.02 x10 3/uL 0-0.03 N LYMPHOCYTE # (test code = LY#) 0.76 K/mm3 1.0-5.0 L MONOCYTE # (test code = MO#) 0.56 K/mm3 0-0.8 N EOSINOPHIL # (test code = EO#) 0.13 K/mm3 0.0-0.5 N BASOPHIL # (test code = BA#) 0.03 K/mm3 0.0-0.2 N NUCLEATED RBC # (test code = NRBC#) 0.00 K/mm3 0.0-0.1 N MANUAL DIFF REQUIRED (test code = MDIFF) YES STAIN ACCEPTABILITY (test code = STN ACCEPTABLE) TOTAL CELLS COUNTED (test code = TCC) #CELLS SEGMENTED NEUTROPHILS (test code = SEG) % 39-69 LYMPHOCYTE (test code = LYMPH) % 25-55 MONOCYTE (test code = MON) % 0-10 MORPHOLOGY COMMENT (test code = MOC) PLATELET ESTIMATE (test code = PLTEST) PLATELET MORPHOLOGY (test code = PLTMORPH) PT SLEEPING, COMEBACK V.LAB.KW 09/08/18 0332CBC W/MANUAL [id number] 06:00:00 * Test Item Value Reference Range Interpretation Comments WHITE BLOOD CELL (test code = WBC) 5.7 K/mm3 4.5-12.5 N RED BLOOD CELL (test code = RBC) 4.12 mill/mm3 3.7-5.2 N HEMOGLOBIN (test code = HGB) 11.8 gram/dL 11.5-15.5 N HEMATOCRIT (test code = HCT) 38.7 % 36.0-46.0 N MEAN CELL VOLUME (test code = MCV) 93.9 fL 80-98 N MEAN CELL HGB (test code = MCH) 28.6 picogram 27.0-33.0 N MEAN CELL HGB CONCETRATION (test code = MCHC) 30.5 gram/dL 33.0-36. 0 L RED CELL DISTRIBUTION WIDTH (test code = RDW) 15.3 % 11.6-16. 2 N RED CELL DISTRIBUTION WIDTH SD (test code = RDW-SD) 53.1 fL 37 .0-51.0 H PLATELET COUNT (test code = PLT) 167 K/mm3 150-450 N MEAN PLATELET VOLUME (test code = MPV) 9.9 fL 6.7-11.0 N IMMATURE GRANULOCYTE % (test code = IG%) 0.3 % 0.0-5.0 N NUCLEATED RBC % (test code = NRBC%) 0.0 % 0-0 N NEUTROPHIL # (test code = NT#) 4.22 K/mm3 1.8-7.7 N IMMATURE GRANULOCYTE # (test code = IG#) 0.02 x10 3/uL 0-0.03 N LYMPHOCYTE # (test code = LY#) 0.76 K/mm3 1.0-5.0 L MONOCYTE # (test code = MO#) 0.56 K/mm3 0-0.8 N EOSINOPHIL # (test code = EO#) 0.13 K/mm3 0.0-0.5 N BASOPHIL # (test code = BA#) 0.03 K/mm3 0.0-0.2 N NUCLEATED RBC # (test code = NRBC#) 0.00 K/mm3 0.0-0.1 N MANUAL DIFF REQUIRED (test code = MDIFF) YES STAIN ACCEPTABILITY (test code = STN ACCEPTABLE) TOTAL CELLS COUNTED (test code = TCC) #CELLS SEGMENTED NEUTROPHILS (test code = SEG) % 39-69 LYMPHOCYTE (test code = LYMPH) % 25-55 MONOCYTE (test code = MON) % 0-10 EOSINOPHIL (test code = EOS) % 0.0-5.0 CABOT RINGS (test code = CAB) MORPHOLOGY COMMENT (test code = MOC) PLATELET ESTIMATE (test code = PLTEST) PLATELET MORPHOLOGY (test code = PLTMORPH) PT SLEEPING, COMEBACK V.LAB.KW 09/08/18 0332CBC W/MANUAL [id number] 06:00:00 * Test Item Value Reference Range Interpretation Comments WHITE BLOOD CELL (test code = WBC) 5.7 K/mm3 4.5-12.5 N RED BLOOD CELL (test code = RBC) 4.12 mill/mm3 3.7-5.2 N HEMOGLOBIN (test code = HGB) 11.8 gram/dL 11.5-15.5 N HEMATOCRIT (test code = HCT) 38.7 % 36.0-46.0 N MEAN CELL VOLUME (test code = MCV) 93.9 fL 80-98 N MEAN CELL HGB (test code = MCH) 28.6 picogram 27.0-33.0 N MEAN CELL HGB CONCETRATION (test code = MCHC) 30.5 gram/dL 33.0-36. 0 L RED CELL DISTRIBUTION WIDTH (test code = RDW) 15.3 % 11.6-16. 2 N RED CELL DISTRIBUTION WIDTH SD (test code = RDW-SD) 53.1 fL 37 .0-51.0 H PLATELET COUNT (test code = PLT) 167 K/mm3 150-450 N MEAN PLATELET VOLUME (test code = MPV) 9.9 fL 6.7-11.0 N IMMATURE GRANULOCYTE % (test code = IG%) 0.3 % 0.0-5.0 N NUCLEATED RBC % (test code = NRBC%) 0.0 % 0-0 N NEUTROPHIL # (test code = NT#) 4.22 K/mm3 1.8-7.7 N IMMATURE GRANULOCYTE # (test code = IG#) 0.02 x10 3/uL 0-0.03 N LYMPHOCYTE # (test code = LY#) 0.76 K/mm3 1.0-5.0 L MONOCYTE # (test code = MO#) 0.56 K/mm3 0-0.8 N EOSINOPHIL # (test code = EO#) 0.13 K/mm3 0.0-0.5 N BASOPHIL # (test code = BA#) 0.03 K/mm3 0.0-0.2 N NUCLEATED RBC # (test code = NRBC#) 0.00 K/mm3 0.0-0.1 N MANUAL DIFF REQUIRED (test code = MDIFF) YES STAIN ACCEPTABILITY (test code = STN ACCEPTABLE) TOTAL CELLS COUNTED (test code = TCC) #CELLS SEGMENTED NEUTROPHILS (test code = SEG) % 39-69 LYMPHOCYTE (test code = LYMPH) % 25-55 MONOCYTE (test code = MON) % 0-10 EOSINOPHIL (test code = EOS) % 0.0-5.0 CABOT RINGS (test code = CAB) MORPHOLOGY COMMENT (test code = MOC) PLATELET ESTIMATE (test code = PLTEST) PLATELET MORPHOLOGY (test code = PLTMORPH) PT SLEEPING, COMEBACK V.LAB.KW 09/08/18 0332CBC W/MANUAL [id number] 06:00:00 * Test Item Value Reference Range Interpretation Comments WHITE BLOOD CELL (test code = WBC) 5.7 K/mm3 4.5-12.5 N RED BLOOD CELL (test code = RBC) 4.12 mill/mm3 3.7-5.2 N HEMOGLOBIN (test code = HGB) 11.8 gram/dL 11.5-15.5 N HEMATOCRIT (test code = HCT) 38.7 % 36.0-46.0 N MEAN CELL VOLUME (test code = MCV) 93.9 fL 80-98 N MEAN CELL HGB (test code = MCH) 28.6 picogram 27.0-33.0 N MEAN CELL HGB CONCETRATION (test code = MCHC) 30.5 gram/dL 33.0-36. 0 L RED CELL DISTRIBUTION WIDTH (test code = RDW) 15.3 % 11.6-16. 2 N RED CELL DISTRIBUTION WIDTH SD (test code = RDW-SD) 53.1 fL 37 .0-51.0 H PLATELET COUNT (test code = PLT) 167 K/mm3 150-450 N MEAN PLATELET VOLUME (test code = MPV) 9.9 fL 6.7-11.0 N IMMATURE GRANULOCYTE % (test code = IG%) 0.3 % 0.0-5.0 N NUCLEATED RBC % (test code = NRBC%) 0.0 % 0-0 N NEUTROPHIL # (test code = NT#) 4.22 K/mm3 1.8-7.7 N IMMATURE GRANULOCYTE # (test code = IG#) 0.02 x10 3/uL 0-0.03 N LYMPHOCYTE # (test code = LY#) 0.76 K/mm3 1.0-5.0 L MONOCYTE # (test code = MO#) 0.56 K/mm3 0-0.8 N EOSINOPHIL # (test code = EO#) 0.13 K/mm3 0.0-0.5 N BASOPHIL # (test code = BA#) 0.03 K/mm3 0.0-0.2 N NUCLEATED RBC # (test code = NRBC#) 0.00 K/mm3 0.0-0.1 N MANUAL DIFF REQUIRED (test code = MDIFF) YES STAIN ACCEPTABILITY (test code = STN ACCEPTABLE) TOTAL CELLS COUNTED (test code = TCC) #CELLS SEGMENTED NEUTROPHILS (test code = SEG) % 39-69 LYMPHOCYTE (test code = LYMPH) % 25-55 MONOCYTE (test code = MON) % 0-10 EOSINOPHIL (test code = EOS) % 0.0-5.0 MORPHOLOGY COMMENT (test code = MOC) PLATELET ESTIMATE (test code = PLTEST) PLATELET MORPHOLOGY (test code = PLTMORPH) PT SLEEPING, COMEBACK V.LAB.KW 09/08/18 0332CBC W/MANUAL [id number] 06:00:00 * Test Item Value Reference Range Interpretation Comments WHITE BLOOD CELL (test code = WBC) 5.7 K/mm3 4.5-12.5 N RED BLOOD CELL (test code = RBC) 4.12 mill/mm3 3.7-5.2 N HEMOGLOBIN (test code = HGB) 11.8 gram/dL 11.5-15.5 N HEMATOCRIT (test code = HCT) 38.7 % 36.0-46.0 N MEAN CELL VOLUME (test code = MCV) 93.9 fL 80-98 N MEAN CELL HGB (test code = MCH) 28.6 picogram 27.0-33.0 N MEAN CELL HGB CONCETRATION (test code = MCHC) 30.5 gram/dL 33.0-36. 0 L RED CELL DISTRIBUTION WIDTH (test code = RDW) 15.3 % 11.6-16. 2 N RED CELL DISTRIBUTION WIDTH SD (test code = RDW-SD) 53.1 fL 37 .0-51.0 H PLATELET COUNT (test code = PLT) 167 K/mm3 150-450 N MEAN PLATELET VOLUME (test code = MPV) 9.9 fL 6.7-11.0 N IMMATURE GRANULOCYTE % (test code = IG%) 0.3 % 0.0-5.0 N NUCLEATED RBC % (test code = NRBC%) 0.0 % 0-0 N NEUTROPHIL # (test code = NT#) 4.22 K/mm3 1.8-7.7 N IMMATURE GRANULOCYTE # (test code = IG#) 0.02 x10 3/uL 0-0.03 N LYMPHOCYTE # (test code = LY#) 0.76 K/mm3 1.0-5.0 L MONOCYTE # (test code = MO#) 0.56 K/mm3 0-0.8 N EOSINOPHIL # (test code = EO#) 0.13 K/mm3 0.0-0.5 N BASOPHIL # (test code = BA#) 0.03 K/mm3 0.0-0.2 N NUCLEATED RBC # (test code = NRBC#) 0.00 K/mm3 0.0-0.1 N MANUAL DIFF REQUIRED (test code = MDIFF) YES STAIN ACCEPTABILITY (test code = STN ACCEPTABLE) TOTAL CELLS COUNTED (test code = TCC) #CELLS SEGMENTED NEUTROPHILS (test code = SEG) % 39-69 LYMPHOCYTE (test code = LYMPH) % 25-55 MONOCYTE (test code = MON) % 0-10 EOSINOPHIL (test code = EOS) % 0.0-5.0 CABOT RINGS (test code = CAB) MORPHOLOGY COMMENT (test code = MOC) PLATELET ESTIMATE (test code = PLTEST) PLATELET MORPHOLOGY (test code = PLTMORPH) PT SLEEPING, COMEBACK V.LAB.KW 09/08/18 [id number] 23:01:00* Test Item Value Reference Range Interpretation Comments GLUBED (test code = GLUBED) 197 mg/dL 74-106 H Performed by certified call center operator at [facility] [id number] 16:42:00* Test Item Value Reference Range Interpretation Comments GLUBED (test code = GLUBED) 193 mg/dL 74-106 H Performed by certified call center operator at [facility] CBC W/MANUAL [id number] 13:56:00* Test Item Value Reference Range Interpretation Comments WHITE BLOOD CELL (test code = WBC) 7.1 K/mm3 4.5-12.5 N RED BLOOD CELL (test code = RBC) 4.08 mill/mm3 3.7-5.2 N HEMOGLOBIN (test code = HGB) 12.1 gram/dL 11.5-15.5 RESULT VERIFIED BY REPEAT ANALYSIS HEMATOCRIT (test code = HCT) 38.4 % 36.0-46.0 N MEAN CELL VOLUME (test code = MCV) 94.1 fL 80-98 N MEAN CELL HGB (test code = MCH) 29.7 picogram 27.0-33.0 N MEAN CELL HGB CONCETRATION (test code = MCHC) 31.5 gram/dL 33.0-36. 0 L RED CELL DISTRIBUTION WIDTH (test code = RDW) 15.0 % 11.6-16. 2 N RED CELL DISTRIBUTION WIDTH SD (test code = RDW-SD) 52.0 fL 37 .0-51.0 H PLATELET COUNT (test code = PLT) 153 K/mm3 150-450 N MEAN PLATELET VOLUME (test code = MPV) 9.7 fL 6.7-11.0 N IMMATURE GRANULOCYTE % (test code = IG%) 0.4 % 0.0-5.0 N NUCLEATED RBC % (test code = NRBC%) 0.0 % 0-0 N NEUTROPHIL # (test code = NT#) 5.78 K/mm3 1.8-7.7 N IMMATURE GRANULOCYTE # (test code = IG#) 0.03 x10 3/uL 0-0.03 N LYMPHOCYTE # (test code = LY#) 0.51 K/mm3 1.0-5.0 L MONOCYTE # (test code = MO#) 0.59 K/mm3 0-0.8 N EOSINOPHIL # (test code = EO#) 0.15 K/mm3 0.0-0.5 N BASOPHIL # (test code = BA#) 0.02 K/mm3 0.0-0.2 N NUCLEATED RBC # (test code = NRBC#) 0.00 K/mm3 0.0-0.1 N MANUAL DIFF REQUIRED (test code = MDIFF) YES STAIN ACCEPTABILITY (test code = STN ACCEPTABLE) STAIN ACCEPTABLE TOTAL CELLS COUNTED (test code = TCC) 100 #CELLS SEGMENTED NEUTROPHILS (test code = SEG) 78 % 39-69 H LYMPHOCYTE (test code = LYMPH) 7 % 25-55 L MONOCYTE (test code = MON) 9 % 0-10 N EOSINOPHIL (test code = EOS) 4 % 0.0-5.0 N BASOPHIL (test code = BASO) 2 % 0-1.0 H MORPHOLOGY COMMENT (test code = MOC) NORMAL PLATELET ESTIMATE (test code = PLTEST) ADEQUATE PLATELET MORPHOLOGY (test code = PLTMORPH) NORMAL BASIC METABOLIC [id number] 12:58:00* Test Item Value Reference Range Interpretation Comments SODIUM (test code = NA) 132 mmol/L 136-145 L POTASSIUM (test code = K) 5.5 mmol/L 3.5-5.1 H CHLORIDE (test code = CL) 94.0 mmol/L 98-107 L CARBON DIOXIDE (test code = CO2) 27.0 mmol/L 21-32 N ANION GAP (test code = GAP) 16.5 10-20 N GLUCOSE (test code = GLU) 184 mg/dL 74-106 H BLOOD UREA NITROGEN (test code = BUN) 62 mg/dL 7-18 H GLOMERULAR FILTRATION RATE (test code = GFR) 5 mL/min >=60 Estimated GFR by using Modified MDRD formula.Chronic kidney disease is defined as either kidney damageor GFR <60 mL/min/1.73 m2 for >3 months. CREATININE (test code = CREAT) 8.00 mg/dL 0.55-1.02 H Note change in reference range due to change in reagent. BUN/CREATININE RATIO (test code = BUN/CREA) 7.8 10-20 L CALCIUM (test code = CA) 7.8 mg/dL 8.5-10.1 L HEPATIC FUNCTION [id number] 12:58:00* Test Item Value Reference Range Interpretation Comments TOTAL PROTEIN (test code = PROT) 7.1 gram/dL 6.4-8.2 N ALBUMIN (test code = ALB) 2.7 g/dL 3.4-5.0 L GLOBULIN (test code = GLOB) 4.4 gram/dL 2.7-4.2 H ALBUMIN/GLOBULIN RATIO (test code = A/G) 0.6 0.75-1.50 L BILIRUBIN TOTAL (test code = BILT) 0.90 mg/dL 0.0-1.0 N BILIRUBIN DIRECT (test code = BILD) 0.47 mg/dL 0.0-0.20 H SGOT/AST (test code = AST) 226 IUnit/L 15-37 H SGPT/ALT (test code = ALT) 374 IUnit/L 12-78 H ALKALINE PHOSPHATASE TOTAL (test code = ALKP) 393 IUnit/L 45-117 H Note change in reference range due to change in reagent. BASIC METABOLIC [id number] 12:53:00* Test Item Value Reference Range Interpretation Comments SODIUM (test code = NA) 132 mmol/L 136-145 L POTASSIUM (test code = K) 5.5 mmol/L 3.5-5.1 H CHLORIDE (test code = CL) 94.0 mmol/L 98-107 L CARBON DIOXIDE (test code = CO2) 27.0 mmol/L 21-32 N ANION GAP (test code = GAP) 16.5 10-20 N GLUCOSE (test code = GLU) 184 mg/dL 74-106 H BLOOD UREA NITROGEN (test code = BUN) 62 mg/dL 7-18 H GLOMERULAR FILTRATION RATE (test code = GFR) 5 mL/min >=60 Estimated GFR by using Modified MDRD formula.Chronic kidney disease is defined as either kidney damageor GFR <60 mL/min/1.73 m2 for >3 months. CREATININE (test code = CREAT) 8.00 mg/dL 0.55-1.02 H Note change in reference range due to change in reagent. BUN/CREATININE RATIO (test code = BUN/CREA) 7.8 10-20 L CALCIUM (test code = CA) 7.8 mg/dL 8.5-10.1 L HEPATIC FUNCTION [id number] 12:53:00* Test Item Value Reference Range Interpretation Comments TOTAL PROTEIN (test code = PROT) gram/dL 6.4-8.2 ALBUMIN (test code = ALB) g/dL 3.4-5.0 GLOBULIN (test code = GLOB) gram/dL 2.7-4.2 ALBUMIN/GLOBULIN RATIO (test code = A/G) 0.75-1.50 BILIRUBIN TOTAL (test code = BILT) mg/dL 0.0-1.0 BILIRUBIN DIRECT (test code = BILD) mg/dL 0.0-0.20 SGOT/AST (test code = AST) IUnit/L 15-37 SGPT/ALT (test code = ALT) IUnit/L 12-78 ALKALINE PHOSPHATASE TOTAL (test code = ALKP) IUnit/L 45-117 CBC W/MANUAL [id number] 12:43:00* Test Item Value Reference Range Interpretation Comments WHITE BLOOD CELL (test code = WBC) 7.1 K/mm3 4.5-12.5 N RED BLOOD CELL (test code = RBC) 4.08 mill/mm3 3.7-5.2 N HEMOGLOBIN (test code = HGB) 12.1 gram/dL 11.5-15.5 RESULT VERIFIED BY REPEAT ANALYSIS HEMATOCRIT (test code = HCT) 38.4 % 36.0-46.0 N MEAN CELL VOLUME (test code = MCV) 94.1 fL 80-98 N MEAN CELL HGB (test code = MCH) 29.7 picogram 27.0-33.0 N MEAN CELL HGB CONCETRATION (test code = MCHC) 31.5 gram/dL 33.0-36. 0 L RED CELL DISTRIBUTION WIDTH (test code = RDW) 15.0 % 11.6-16. 2 N RED CELL DISTRIBUTION WIDTH SD (test code = RDW-SD) 52.0 fL 37 .0-51.0 H PLATELET COUNT (test code = PLT) 153 K/mm3 150-450 N MEAN PLATELET VOLUME (test code = MPV) 9.7 fL 6.7-11.0 N IMMATURE GRANULOCYTE % (test code = IG%) 0.4 % 0.0-5.0 N NUCLEATED RBC % (test code = NRBC%) 0.0 % 0-0 N NEUTROPHIL # (test code = NT#) 5.78 K/mm3 1.8-7.7 N IMMATURE GRANULOCYTE # (test code = IG#) 0.03 x10 3/uL 0-0.03 N LYMPHOCYTE # (test code = LY#) 0.51 K/mm3 1.0-5.0 L MONOCYTE # (test code = MO#) 0.59 K/mm3 0-0.8 N EOSINOPHIL # (test code = EO#) 0.15 K/mm3 0.0-0.5 N BASOPHIL # (test code = BA#) 0.02 K/mm3 0.0-0.2 N NUCLEATED RBC # (test code = NRBC#) 0.00 K/mm3 0.0-0.1 N MANUAL DIFF REQUIRED (test code = MDIFF) YES STAIN ACCEPTABILITY (test code = STN ACCEPTABLE) TOTAL CELLS COUNTED (test code = TCC) #CELLS SEGMENTED NEUTROPHILS (test code = SEG) % 39-69 LYMPHOCYTE (test code = LYMPH) % 25-55 MONOCYTE (test code = MON) % 0-10 MORPHOLOGY COMMENT (test code = MOC) PLATELET ESTIMATE (test code = PLTEST) PLATELET MORPHOLOGY (test code = PLTMORPH) CBC W/MANUAL [id number] 12:42:00* Test Item Value Reference Range Interpretation Comments WHITE BLOOD CELL (test code = WBC) 7.1 K/mm3 4.5-12.5 N RED BLOOD CELL (test code = RBC) 4.08 mill/mm3 3.7-5.2 N HEMOGLOBIN (test code = HGB) 12.1 gram/dL 11.5-15.5 RESULT VERIFIED BY REPEAT ANALYSIS HEMATOCRIT (test code = HCT) 38.4 % 36.0-46.0 N MEAN CELL VOLUME (test code = MCV) 94.1 fL 80-98 N MEAN CELL HGB (test code = MCH) 29.7 picogram 27.0-33.0 N MEAN CELL HGB CONCETRATION (test code = MCHC) 31.5 gram/dL 33.0-36. 0 L RED CELL DISTRIBUTION WIDTH (test code = RDW) 15.0 % 11.6-16. 2 N RED CELL DISTRIBUTION WIDTH SD (test code = RDW-SD) 52.0 fL 37 .0-51.0 H PLATELET COUNT (test code = PLT) 153 K/mm3 150-450 N MEAN PLATELET VOLUME (test code = MPV) 9.7 fL 6.7-11.0 N IMMATURE GRANULOCYTE % (test code = IG%) 0.4 % 0.0-5.0 N NUCLEATED RBC % (test code = NRBC%) 0.0 % 0-0 N NEUTROPHIL # (test code = NT#) 5.78 K/mm3 1.8-7.7 N IMMATURE GRANULOCYTE # (test code = IG#) 0.03 x10 3/uL 0-0.03 N LYMPHOCYTE # (test code = LY#) 0.51 K/mm3 1.0-5.0 L MONOCYTE # (test code = MO#) 0.59 K/mm3 0-0.8 N EOSINOPHIL # (test code = EO#) 0.15 K/mm3 0.0-0.5 N BASOPHIL # (test code = BA#) 0.02 K/mm3 0.0-0.2 N NUCLEATED RBC # (test code = NRBC#) 0.00 K/mm3 0.0-0.1 N MANUAL DIFF REQUIRED (test code = MDIFF) YES STAIN ACCEPTABILITY (test code = STN ACCEPTABLE) TOTAL CELLS COUNTED (test code = TCC) #CELLS SEGMENTED NEUTROPHILS (test code = SEG) % 39-69 LYMPHOCYTE (test code = LYMPH) % 25-55 MONOCYTE (test code = MON) % 0-10 EOSINOPHIL (test code = EOS) % 0.0-5.0 CABOT RINGS (test code = CAB) MORPHOLOGY COMMENT (test code = MOC) PLATELET ESTIMATE (test code = PLTEST) PLATELET MORPHOLOGY (test code = PLTMORPH) CBC W/MANUAL [id number] 12:42:00* Test Item Value Reference Range Interpretation Comments WHITE BLOOD CELL (test code = WBC) 7.1 K/mm3 4.5-12.5 N RED BLOOD CELL (test code = RBC) 4.08 mill/mm3 3.7-5.2 N HEMOGLOBIN (test code = HGB) 12.1 gram/dL 11.5-15.5 RESULT VERIFIED BY REPEAT ANALYSIS HEMATOCRIT (test code = HCT) 38.4 % 36.0-46.0 N MEAN CELL VOLUME (test code = MCV) 94.1 fL 80-98 N MEAN CELL HGB (test code = MCH) 29.7 picogram 27.0-33.0 N MEAN CELL HGB CONCETRATION (test code = MCHC) 31.5 gram/dL 33.0-36. 0 L RED CELL DISTRIBUTION WIDTH (test code = RDW) 15.0 % 11.6-16. 2 N RED CELL DISTRIBUTION WIDTH SD (test code = RDW-SD) 52.0 fL 37 .0-51.0 H PLATELET COUNT (test code = PLT) 153 K/mm3 150-450 N MEAN PLATELET VOLUME (test code = MPV) 9.7 fL 6.7-11.0 N IMMATURE GRANULOCYTE % (test code = IG%) 0.4 % 0.0-5.0 N NUCLEATED RBC % (test code = NRBC%) 0.0 % 0-0 N NEUTROPHIL # (test code = NT#) 5.78 K/mm3 1.8-7.7 N IMMATURE GRANULOCYTE # (test code = IG#) 0.03 x10 3/uL 0-0.03 N LYMPHOCYTE # (test code = LY#) 0.51 K/mm3 1.0-5.0 L MONOCYTE # (test code = MO#) 0.59 K/mm3 0-0.8 N EOSINOPHIL # (test code = EO#) 0.15 K/mm3 0.0-0.5 N BASOPHIL # (test code = BA#) 0.02 K/mm3 0.0-0.2 N NUCLEATED RBC # (test code = NRBC#) 0.00 K/mm3 0.0-0.1 N MANUAL DIFF REQUIRED (test code = MDIFF) YES STAIN ACCEPTABILITY (test code = STN ACCEPTABLE) TOTAL CELLS COUNTED (test code = TCC) #CELLS SEGMENTED NEUTROPHILS (test code = SEG) % 39-69 LYMPHOCYTE (test code = LYMPH) % 25-55 MONOCYTE (test code = MON) % 0-10 EOSINOPHIL (test code = EOS) % 0.0-5.0 CABOT RINGS (test code = CAB) MORPHOLOGY COMMENT (test code = MOC) PLATELET ESTIMATE (test code = PLTEST) PLATELET MORPHOLOGY (test code = PLTMORPH) CBC W/MANUAL [id number] 12:42:00* Test Item Value Reference Range Interpretation Comments WHITE BLOOD CELL (test code = WBC) 7.1 K/mm3 4.5-12.5 N RED BLOOD CELL (test code = RBC) 4.08 mill/mm3 3.7-5.2 N HEMOGLOBIN (test code = HGB) 12.1 gram/dL 11.5-15.5 RESULT VERIFIED BY REPEAT ANALYSIS HEMATOCRIT (test code = HCT) 38.4 % 36.0-46.0 N MEAN CELL VOLUME (test code = MCV) 94.1 fL 80-98 N MEAN CELL HGB (test code = MCH) 29.7 picogram 27.0-33.0 N MEAN CELL HGB CONCETRATION (test code = MCHC) 31.5 gram/dL 33.0-36. 0 L RED CELL DISTRIBUTION WIDTH (test code = RDW) 15.0 % 11.6-16. 2 N RED CELL DISTRIBUTION WIDTH SD (test code = RDW-SD) 52.0 fL 37 .0-51.0 H PLATELET COUNT (test code = PLT) 153 K/mm3 150-450 N MEAN PLATELET VOLUME (test code = MPV) 9.7 fL 6.7-11.0 N IMMATURE GRANULOCYTE % (test code = IG%) 0.4 % 0.0-5.0 N NUCLEATED RBC % (test code = NRBC%) 0.0 % 0-0 N NEUTROPHIL # (test code = NT#) 5.78 K/mm3 1.8-7.7 N IMMATURE GRANULOCYTE # (test code = IG#) 0.03 x10 3/uL 0-0.03 N LYMPHOCYTE # (test code = LY#) 0.51 K/mm3 1.0-5.0 L MONOCYTE # (test code = MO#) 0.59 K/mm3 0-0.8 N EOSINOPHIL # (test code = EO#) 0.15 K/mm3 0.0-0.5 N BASOPHIL # (test code = BA#) 0.02 K/mm3 0.0-0.2 N NUCLEATED RBC # (test code = NRBC#) 0.00 K/mm3 0.0-0.1 N MANUAL DIFF REQUIRED (test code = MDIFF) YES STAIN ACCEPTABILITY (test code = STN ACCEPTABLE) TOTAL CELLS COUNTED (test code = TCC) #CELLS SEGMENTED NEUTROPHILS (test code = SEG) % 39-69 LYMPHOCYTE (test code = LYMPH) % 25-55 MONOCYTE (test code = MON) % 0-10 EOSINOPHIL (test code = EOS) % 0.0-5.0 MORPHOLOGY COMMENT (test code = MOC) PLATELET ESTIMATE (test code = PLTEST) PLATELET MORPHOLOGY (test code = PLTMORPH) CBC W/MANUAL [id number] 12:42:00* Test Item Value Reference Range Interpretation Comments WHITE BLOOD CELL (test code = WBC) 7.1 K/mm3 4.5-12.5 N RED BLOOD CELL (test code = RBC) 4.08 mill/mm3 3.7-5.2 N HEMOGLOBIN (test code = HGB) 12.1 gram/dL 11.5-15.5 RESULT VERIFIED BY REPEAT ANALYSIS HEMATOCRIT (test code = HCT) 38.4 % 36.0-46.0 N MEAN CELL VOLUME (test code = MCV) 94.1 fL 80-98 N MEAN CELL HGB (test code = MCH) 29.7 picogram 27.0-33.0 N MEAN CELL HGB CONCETRATION (test code = MCHC) 31.5 gram/dL 33.0-36. 0 L RED CELL DISTRIBUTION WIDTH (test code = RDW) 15.0 % 11.6-16. 2 N RED CELL DISTRIBUTION WIDTH SD (test code = RDW-SD) 52.0 fL 37 .0-51.0 H PLATELET COUNT (test code = PLT) 153 K/mm3 150-450 N MEAN PLATELET VOLUME (test code = MPV) 9.7 fL 6.7-11.0 N IMMATURE GRANULOCYTE % (test code = IG%) 0.4 % 0.0-5.0 N NUCLEATED RBC % (test code = NRBC%) 0.0 % 0-0 N NEUTROPHIL # (test code = NT#) 5.78 K/mm3 1.8-7.7 N IMMATURE GRANULOCYTE # (test code = IG#) 0.03 x10 3/uL 0-0.03 N LYMPHOCYTE # (test code = LY#) 0.51 K/mm3 1.0-5.0 L MONOCYTE # (test code = MO#) 0.59 K/mm3 0-0.8 N EOSINOPHIL # (test code = EO#) 0.15 K/mm3 0.0-0.5 N BASOPHIL # (test code = BA#) 0.02 K/mm3 0.0-0.2 N NUCLEATED RBC # (test code = NRBC#) 0.00 K/mm3 0.0-0.1 N MANUAL DIFF REQUIRED (test code = MDIFF) YES STAIN ACCEPTABILITY (test code = STN ACCEPTABLE) TOTAL CELLS COUNTED (test code = TCC) #CELLS SEGMENTED NEUTROPHILS (test code = SEG) % 39-69 LYMPHOCYTE (test code = LYMPH) % 25-55 MONOCYTE (test code = MON) % 0-10 EOSINOPHIL (test code = EOS) % 0.0-5.0 CABOT RINGS (test code = CAB) MORPHOLOGY COMMENT (test code = MOC) PLATELET ESTIMATE (test code = PLTEST) PLATELET MORPHOLOGY (test code = PLTMORPH) - [facility] [id number] 12:06:00 FAX: Reed Bernard MD [phone] [place]: B St: ADM FAX: Alaina Ramos MD [phone] FAX: Hugh Wilkins [phone] Name: ERIN SCHILLING [facility] : 1950 Age/S: 67/F [address] [facility] Unit #: [id number] Loc: [place] [address] Phys: Hugh Guzman MD Acct: [id number] Dis Date: Status: ADM IN ONE #: [phone] Exam Date: 09/07/2018 1154 FAX #: [phone] Reason: Elevated LFT EXAMS: CPT CODE: [id number] MR I MRCP 09503 HISTORY: [place] nella liver function tests. COMPARISON: Ultrasound from previous day . MRCP: 3-D images. CBD is dilated to 1 cm. Smooth t aper into the ampulla. No filling defects to suggest CBD stones. The commo n hepatic and the right and left hepatic ducts are normal in size. Visuali zed pancreatic duct is unremarkable. Patient is post cholecystectomy. No ascites. Atrophied kidneys noted. IMPRESSION: Dilated CBD at 1 cm without filling defects with smooth taper into the ampulla. Patient is post cholecystectomy. at 1206 Repor nella and signed by: Jamie Lovell M.D. CC: Reed Augustin MD; Alaina Parker i; Hugh Guzman MD Technologist: TAYLA NYERT - MRI Trnmerd Date/Time/By: 09/07/2018 (7142) : By: [email or web address] Orig Print D/T: S: 09/07/2018 (6710) PAGE 1 Signed Report AG HEPAT B SURF 2018-09-07 10:54:00* Test Item Value Reference Range Interpretation Comments AG HEPAT B SURF (test code = HBSAG) Nonreactive Index Nonreactive [id number] 07:52:00* Test Item Value Reference Range Interpretation Comments GLUBED (test code = GLUBED) 204 mg/dL 74-106 H Performed by certified call center operator at [facility] - US ABDOMEN [id number] 20:27:00 Name: ERIN SCHILLING [facility] : 1950 Age/S: 67 / F [facility] Unit #: [id number] Loc: [place] [address] Phys: Torri Conti MD Acct: [id number] Dis Date: Status: REG ER PHONE #: [phone] Exam Date: 09/06/20181952 FAX #: [phone] Reason: elev lft's, sob, abd pain EXAMS: CPT CODE: [id number] US ABDOMEN LTD 00436 REASON FOR EXAM: elev lft's, sob, abd pain EXAM ORDER DATE: 09/06/2018 6:52 PM Attending MGenaro.: Torri Conti MD PROCEDURE: - US ABDOMEN LTD FINDINGS: The liver is unremarkable. There is no evidence of focal mass identified. The pancreas is within normal limits. The right kidney measures 7.4 x 3.9 cm. There is no evidence of hydronephrosis. There is no evidence of nephrolithiasis. There is no evidence of renal mass. The patient is status post cholecystectomy. The common bile duct measures 1 cm. There is no evidence of ascites. The aorta and IVC are within normal limits. The portal vein is patent with hepatopetal flow IMPRESSION: Nonspecific minimal dilatation of the common bile duct (1 cm) in patient status post cholecystectomy. Chronic kidney disease with atrophy of the right renal cortex. No other significant findings at 2026 Reported and signed by: Miguel Macias M.D. CC: Alaina Alonzo; Torri Conti MD Technologist: Aditi Long RT(S), RD Trnscb Date/Time: 09/06/2018 (2026) Jose Orig Print D/T: S: 09/06/2018 (2029) Probe: PAGE 1 Signed Report PROTHROMBIN [id number] 18:42:00* Test Item Value Reference Range Interpretation Comments PROTHROMBIN TIME PATIENT (test code = PTP) 20.5 seconds 9.0-14.0 H INTERNATIONAL NORMAL RATIO (test code = INR) 1.7 0.8-1.2 H The therapeutic range for oral anticoagulant therapy formost indications is an international normalized ratio (INR)of between 2.0 and 3.0. The recommended therapeutic INRrange for various clinical situations is listed below: Clinical Situation INR range Pulmonary e mbolism treatment (2.0-3.0)Venous thrombosis treatmentVenous thrombosis prophylaxis (high risk surgery)Prevention of systemic embolism from: Acute myocardial infarction Valvular heart disease Atrial fibrillation Mechanical prosthetic heart valves (2.5-3.5) IS PATIENT ON ANTICOAGULANTS? NTHROMBOPLASTIN TIME [id number] 18:42:00* Test Item Value Reference Range Interpretation Comments THROMBOPLASTIN TIME PARTIAL (test code = PTT) 52.1 seconds 25.0-36. 5 H IS PATIENT ON ANTICOAGULANTS? NB-TYPE NATRIURETIC [id number] 18:24:00* Test Item Value Reference Range Interpretation Comments B-TYPE NATRIURETIC PEPTIDE (test code = BNP) 261.92 pgram/mL 0-100 H BASIC METABOLIC [id number] 18:22:00* Test Item Value Reference Range Interpretation Comments SODIUM (test code = NA) 134 mmol/L 136-145 L POTASSIUM (test code = K) 5.3 mmol/L 3.5-5.1 H CHLORIDE (test code = CL) 93.0 mmol/L 98-107 L CARBON DIOXIDE (test code = CO2) 29.0 mmol/L 21-32 N ANION GAP (test code = GAP) 17.3 10-20 N GLUCOSE (test code = GLU) 374 mg/dL 74-106 H BLOOD UREA NITROGEN (test code = BUN) 52 mg/dL 7-18 H GLOMERULAR FILTRATION RATE (test code = GFR) 6 mL/min >=60 Estimated GFR by using Modified MDRD formula.Chronic kidney disease is defined as either kidney damageor GFR <60 mL/min/1.73 m2 for >3 months. CREATININE (test code = CREAT) 6.90 mg/dL 0.55-1.02 H Note change in reference range due to change in reagent. BUN/CREATININE RATIO (test code = BUN/CREA) 7.5 10-20 L CALCIUM (test code = CA) 8.3 mg/dL 8.5-10.1 L HEPATIC FUNCTION [id number] 18:22:00* Test Item Value Reference Range Interpretation Comments TOTAL PROTEIN (test code = PROT) 8.1 gram/dL 6.4-8.2 N ALBUMIN (test code = ALB) 3.3 g/dL 3.4-5.0 L GLOBULIN (test code = GLOB) 4.8 gram/dL 2.7-4.2 H ALBUMIN/GLOBULIN RATIO (test code = A/G) 0.7 0.75-1.50 L BILIRUBIN TOTAL (test code = BILT) 1.60 mg/dL 0.0-1.0 H BILIRUBIN DIRECT (test code = BILD) 1.16 mg/dL 0.0-0.20 H SGOT/AST (test code = AST) 759 IUnit/L 15-37 H SGPT/ALT (test code = ALT) 708 IUnit/L 12-78 H ALKALINE PHOSPHATASE TOTAL (test code = ALKP) 456 IUnit/L 45-117 H Note change in reference range due to change in reagent. [id number] 18:22:00* Test Item Value Reference Range Interpretation Comments LIPASE (test code = LIP) 241 U/L 73.0-393.0 N [id number] 18:22:00* Test Item Value Reference Range Interpretation Comments TROPONIN-I (test code = TROPI) <0.015 ng/mL 0-0.045 N - XR CHEST 1 [id number] 18:20:00 FAX: Alaina Ramos MD [phone] [place]: B St: REG FAX: Torri Conti MD [phone] Name: ERIN SCHILLING [facility] : 1950 Age/S: 67/F [address] [facility] Unit #: [id number] Loc: [place] [address] Phys: Torri Conti MD Acct: [id number] Dis Date: Status: REG ER PHONE #: [phone] Exam Date: 09/06/2018 1805 FAX #: [phone] Reason: Shortness of Breath EXAMS: CPT CODE: [id number] XR CHEST 1 V 38545 REASON FOR EXAM: Shortness of Breath EXAM ORDER DATE: 09/06/2018 5:30 PM Ordering MLuis Angel: Torri Conti MD PROCEDURE: - XR CHEST 1 V COMPARISON: FINDINGS: Portable AP frontal view of the chest obtained at 6:08 PM shows clear lungs without evidence of consolidation. There is no evidence of effusion. The heart size is within normal limits. Pulmonary vasculatures are unremarkable. IMPRESSION: No active disease. Inki ctronically Signed by Torito Macias on 09/06/2018 at 1820 Reported and signed by: Miguel Macias M.D. CC: Alaina Alonzo; Torri Dia MD Technologist: Leigh Ann Mcintosh(Mirza) Trnscrd Date/Time/By: 09/06/2018 (1819) : By: Kristen TempletonVTL Orig Print D/T: S: 09/06/2018 (182) PAGE 1 Signed Report BASIC METABOLIC [id number] 18:19:00* Test Item Value Reference Range Interpretation Comments SODIUM (test code = NA) 134 mmol/L 136-145 L POTASSIUM (test code = K) 5.3 mmol/L 3.5-5.1 H CHLORIDE (test code = CL) 93.0 mmol/L 98-107 L CARBON DIOXIDE (test code = CO2) mmol/L 21-32 ANION GAP (test code = GAP) 10-20 GLUCOSE (test code = GLU) mg/dL 74-106 BLOOD UREA NITROGEN (test code = BUN) mg/dL 7-18 GLOMERULAR FILTRATION RATE (test code = GFR) mL/min >=60 CREATININE (test code = CREAT) mg/dL 0.55-1.02 BUN/CREATININE RATIO (test code = BUN/CREA) 10-20 CALCIUM (test code = CA) mg/dL 8.5-10.1 HEPATIC FUNCTION [id number] 18:19:00* Test Item Value Reference Range Interpretation Comments TOTAL PROTEIN (test code = PROT) gram/dL 6.4-8.2 ALBUMIN (test code = ALB) g/dL 3.4-5.0 GLOBULIN (test code = GLOB) gram/dL 2.7-4.2 ALBUMIN/GLOBULIN RATIO (test code = A/G) 0.75-1.50 BILIRUBIN TOTAL (test code = BILT) mg/dL 0.0-1.0 BILIRUBIN DIRECT (test code = BILD) mg/dL 0.0-0.20 SGOT/AST (test code = AST) IUnit/L 15-37 SGPT/ALT (test code = ALT) IUnit/L 12-78 ALKALINE PHOSPHATASE TOTAL (test code = ALKP) IUnit/L 45-117 [id number] 18:19:00* Test Item Value Reference Range Interpretation Comments LIPASE (test code = LIP) U/L 73.0-393.0 [id number] 18:19:00* Test Item Value Reference Range Interpretation Comments TROPONIN-I (test code = TROPI) ng/mL 0-0.045 CBC W/O [id number] 18:03:00* Test Item Value Reference Range Interpretation Comments WHITE BLOOD CELL (test code = WBC) 8.8 K/mm3 4.5-12.5 N RED BLOOD CELL (test code = RBC) 4.83 mill/mm3 3.7-5.2 N HEMOGLOBIN (test code = HGB) 14.2 gram/dL 11.5-15.5 N HEMATOCRIT (test code = HCT) 46.0 % 36.0-46.0 N MEAN CELL VOLUME (test code = MCV) 95.2 fL 80-98 N MEAN CELL HGB (test code = MCH) 29.4 picogram 27.0-33.0 N MEAN CELL HGB CONCETRATION (test code = MCHC) 30.9 gram/dL 33.0-36. 0 L RED CELL DISTRIBUTION WIDTH (test code = RDW) 14.7 % 11.6-16. 2 N PLATELET COUNT (test code = PLT) 172 K/mm3 150-450 N MEAN PLATELET VOLUME (test code = MPV) 9.6 fL 6.7-11.0 N CBC W/O [id number] 18:02:00* Test Item Value Reference Range Interpretation Comments WHITE BLOOD CELL (test code = WBC) K/mm3 4.5-12.5 RED BLOOD CELL (test code = RBC) mill/mm3 3.7-5.2 HEMOGLOBIN (test code = HGB) 14.2 gram/dL 11.5-15.5 N HEMATOCRIT (test code = HCT) 46.0 % 36.0-46.0 N MEAN CELL VOLUME (test code = MCV) fL 80-98 MEAN CELL HGB (test code = MCH) picogram 27.0-33.0 MEAN CELL HGB CONCETRATION (test code = MCHC) gram/dL 33.0-36. 0 RED CELL DISTRIBUTION WIDTH (test code = RDW) % 11.6-16. 2 PLATELET COUNT (test code = PLT) K/mm3 150-450 MEAN PLATELET VOLUME (test code = MPV) fL 6.7-11.0 [id number] 17:48:00* Test Item Value Reference Range Interpretation Comments GLUBED (test code = GLUBED) 206 mg/dL 74-106 H Performed by certified call center operator at [facility] - CT UP EXTREM W/O CONT [id number] 17:12:00 Name: ERIN SCHILLING [facility] : 1950 Age/S: 67 / F [address] [facility] Unit #: [id number] Loc: [place] [address] Phys: Keron West DO Acct: [id number] Dis Date: Status: REG ER PHONE #: [phone] Exam Date: 09/03/2018 1640 FAX #: [phone] Reason: abnl xr, possible fracture EXAMS: CPT CODE: [id number] CT UP EXTREM W/[place] [address] HISTORY: Right shoulder trauma; possible fracture on x-ray TECHNIQUE: 2.[address] of the right shoulder without contrast. Sagittal and coronal reformatted images were generated. Automated exposure control for dose reduction. COMPARISON: X-ray from earlier today FINDINGS: Regional osseous structures are intact. No cortical erosion or periosteal reaction. Bony trabecular pattern is unremarkable. High riding humeral head with acromial undersurface degenerative changes. Severe glenohumeral joint space loss. Moderate acromioclavicular degenerative arthrosis. Glenohumeral joint effusion as well as subacromial/subdeltoid bursal fluid. Suspect chronic superior rotator cuff tear with moderate supraspinatus and infraspinatus muscle atrophy. Heterotopic ossification or intra-articular bodies anterior to the humeral head. IMPRESSION: No acute fracture or dislocation of the right shoulder. at 1712 Reported and signed by: Barbara Loja D.O. CC: Alaina Alonzo; Keron West DO Technologist:Jann Singletary RT (R)(CT) CTDI: DLP: Trnscb Date/Time: 09/03/2018 (1712) Yury DP1 Orig Print D/T: S: 09/03/2018 (5487) PAGE 1 Signed Report - XR SHOULDER 2 + V [id number] 14:07:00 FAX: Alaina Ramos MD [phone] [place]: St: REG FAX: Keron West DO Name: ERIN SCHILLING [facility] : 1950 Age/S: 67/F [address] [facility] Unit #: [id number] Loc: [place] [address] Phys: Keron West DO Acct: [id number] Dis Date: Status: REG ER PHONE #: [phone] Exam Date: 09/03/2018 1250 FAX #: [phone] Reason: pain EXAMS: CPT CODE: [id number] XR SHOULDER 2 + V RT [address] HISTORY: pain TECHNIQUE: Frontal, oblique, and scapular Y views of the right shoulder. FINDINGS: The glenohumeral articulation is congruent. The glenoid appears fragmented with concern for an acute fracture. The subacromial distance is reduced measuring approximately 5 mm suggesting chronic rotator cuff tear. The bones are osteopenic. Degenerative changes are seen in the right acromioclavicular j oint. Soft tissues are within normal limits. The visualized right lung fie ld is clear. IMPRESSION: Glenoid fracture is susp ected. If clinically indicated recommend further evaluation with a CT sc an. Chronic rotator cuff tear is suspected. Osteopenia. at 1407 Reported and signed by: Odin Rivera M.D. CC: Aries Alonzo; Keron West DO Technologist: VIV BOSCH Trnscrd Date/Time/By: 09/03/2018 (6921) : By: [email or web address] Orig Print D/T: S: 09/03/2018 (0849) PAGE 1 Signed Report - CT ABD PELVIS W/O [id number] 13:33:00 Name: ERIN SCHILLING [facility] : 1950 Age/S: 67 / F [address] [facility] Unit #: [id number] Loc: [place] [address] Phys: Keron West DO Acct: [id number] Dis Date: Status: REG ER PHONE #: [phone] Exam Date: 09/03/2018 1220 FAX #: [phone] Reason: suprepubic pain EXAMS: CPT CODE: [id number] CT ABD PELVIS W/O CONT 61662 REASON FOR EXAM: suprepubic pain EXAM ORDER DATE: 09/03/2018 12:09 PM Ordering Torito: Keron T Tenke, DO PROCEDURE: - CT ABD PELVIS W/O CONT noncontrast enhanced axial CT images were acquired through the abdomen/pelvis at 5 mm intervals. Sagittal and coronal reformatted images were generated. Automated exposure control was utilized for this reduction. COMPARISON: June 08, 2018. FINDINGS: The absence of IV contrast limits sensitivity of this exam for the detection of soft tissue pathology The visualized lung bases show a calcified granuloma in the right lower lobe. A nodule is seen in the right lower lobe measuring 9 mm (3/9), stable when compared to June 08, 2018. There is no evidence of pleural or pericardial effusion. Atherosclerotic calcifications are seen in the coronary arteries. Calcifications are also seen in the lateral aspect of the right breast. No focal lesions are seen in the liver. Prior cholecystectomy. The spleen, adrenals, and the pancreas appear normal. The kidneys are atrophic and show presence of nonobstructing calculi. A right lower quadrant colostomy is seen. Prior left-sided hemicolectomy is suspected. No dilated bowel loops are seen. There is no evidence of free fluid or air in the abdomen or pelvis. No retroperitoneal, pelvic, or inguinal adenopathy is present. The uterus is not visualized. No adnexal masses are seen. The urinary bladder appears normal. Degenerative changes are seen in the spine. A small fat- containing umbilical hernia is seen (2/71). Sclerosis of bilateral sacroi liac joints. A lobulated complex collection / mass is seen in the left buttock adjacent to the midline and abutting the left side of the sacrum/coccyx, measuring approximately 4.9 x 3.4 x 4.8 cm (series 2 image 84 and series 601 image 153). PAGE 1 Signed Report (CONTINUED) Name: ERIN SCHILLING [facility] : 1950 Age/S: 67 / F [address] [facility] Unit #: [id number] Loc: [place] [address] Phys: Keron West DO Acct: [id number] Dis Date: Status: REG ER PHONE #: [phone] Exam Date: 09/03/2018 1220 FAX #: [phone] Reason: suprepubic pain EXAMS: CPT CODE: [id number] CT ABD PELVIS W/O CONT 31647 <Continued> IMPRESSION: Stable right lower quadrant colostomy. No evidence of bowel obstruction or parastomal hernia. Unchanged right lower lobe lung nodule measuring 9 mm. A multiloculated mass/complex collection is seen in the left buttock in the subcutaneous location, just to the left of the midline and abutting the left side of the sacrum/coccyx. Recommend further evaluation as clinically indicated. This finding is not changed since June 08, 2018 study. at 1333 Reported and signed by: Odin Rivera M.D. CC: Alaina Alonzo; Keron West DO Technologist:Cristiane Sam RT(R),CT; CTDI: DLP: Trnscb Date/Time: 09/03/2018 (4952) [email or web address] Orig Print D/T: S: 09/03/2018 (2893) PAGE 2 Signed Report - XR HIP W/PEL UNI 2+V [id number] 13:15:00 FAX: Alaina Ramos MD [phone] [place]: St: REG FAX: Keron West DO Name: ERIN SCHILLING [facility] : 1950 Age/S: 67/F [address] [facility] Unit #: [id number] Loc: [place] [address] Phys: Keron West DO Acct: [id number] Dis Date: Status: REG ER PHONE #: [phone] Exam Date: 09/03/2018 1250 FAX #: [phone] Reason: pain EXAMS: CPT CODE: [id number] XR HIP W/PEL UNI 2+[place] [address] HISTORY: pain EXAM: Frontal and lateral views of the right hip. Frontal and lateral views of the right femur. FINDINGS: The right hip joint is congruent. No evidence of acute fracture or dislocation is seen. The sacroiliac joints and the pubic symphysis are congruent. Degenerative changes are seen in the lower lumbar spine. Nonobstructive bowel gas pattern is present. Atherosclerotic calcificatio ns. Degenerative changes in the right knee are partially visualized. The b ones are osteopenic. Sclerosis at bilateral sacroiliac joints is concernin g for sacroiliitis. IMPRESSION: No evidence of acute f racture or dislocation. Degenerative changes and osteopenia. Clary pected sacroiliitis. at 1314 Reported and signed by: Odin Rivera M.D. CC: Alaina Alonzo; Keron West DO Technologist: VIV ZHOU Trnscrd Date/Time/By: 09/04/19 19 (6040) : By: [email or web address] Orig Print D/T: S: 09/03/2018 (9246) PAGE 1 Signed Report - XR FEMUR MIN 2 VWS [id number] 13:15:00 FAX: Alaina Ramos MD [phone] [place]: St: REG FAX: Keron West DO Name: ERIN SCHILLING [facility] : 1950 Age/S: 67/F [address] [facility] Unit #: [id number] Loc: [place] [address] Phys: Keron West DO Acct: [id number] Dis Date: Status: REG ER PHONE #: [phone] Exam Date: 09/03/2018 1250 FAX #: [phone] Reason: pain EXAMS: CPT CODE: [id number] XR FEMUR MIN [address] [place] [address] HISTORY: pain EXAM: Frontal and lateral views of the right hip. Frontal and lateral views of the right femur. FINDINGS: The right hip joint is congruent. No evidence of acute fracture or dislocation is seen. The sacroiliac joints and the pubic symphysis are congruent. Degenerative changes are seen in the lower lumbar spine. Nonobstructive bowel gas pattern is present. Atherosclerotic calcificatio ns. Degenerative changes in the right knee are partially visualized. The b ones are osteopenic. Sclerosis at bilateral sacroiliac joints is concernin g for sacroiliitis. IMPRESSION: No evidence of acute f racture or dislocation. Degenerative changes and osteopenia. Clary pected sacroiliitis. at 1315 Reported and signed by: Odin Rivera M.D. CC: Alaina Alnozo; Keron West DO Technologist: VIV ZHOU RT Trnscrd Date/Time/By: 09/04/19 19 (9253) : By: [email or web address] Orig Print D/T: S: 09/03/2018 (6396) PAGE 1 Signed Report BASIC METABOLIC [id number] 12:38:00* Test Item Value Reference Range Interpretation Comments SODIUM (test code = NA) 129 mmol/L 136-145 L POTASSIUM (test code = K) 5.0 mmol/L 3.5-5.1 N CHLORIDE (test code = CL) 96.0 mmol/L 98-107 L CARBON DIOXIDE (test code = CO2) 26.0 mmol/L 21-32 N ANION GAP (test code = GAP) 12.0 10-20 N GLUCOSE (test code = GLU) 472 mg/dL 74-106 H BLOOD UREA NITROGEN (test code = BUN) 39 mg/dL 7-18 H GLOMERULAR FILTRATION RATE (test code = GFR) 8 mL/min >=60 Estimated GFR by using Modified MDRD formula.Chronic kidney disease is defined as either kidney damageor GFR <60 mL/min/1.73 m2 for >3 months. CREATININE (test code = CREAT) 5.60 mg/dL 0.55-1.02 H Note change in reference range due to change in reagent. BUN/CREATININE RATIO (test code = BUN/CREA) 7.0 10-20 L CALCIUM (test code = CA) 8.0 mg/dL 8.5-10.1 L HEPATIC FUNCTION [id number] 12:38:00* Test Item Value Reference Range Interpretation Comments TOTAL PROTEIN (test code = PROT) 7.4 gram/dL 6.4-8.2 N ALBUMIN (test code = ALB) 3.2 g/dL 3.4-5.0 L GLOBULIN (test code = GLOB) 4.2 gram/dL 2.7-4.2 N ALBUMIN/GLOBULIN RATIO (test code = A/G) 0.8 0.75-1.50 N BILIRUBIN TOTAL (test code = BILT) 0.40 mg/dL 0.0-1.0 N BILIRUBIN DIRECT (test code = BILD) 0.11 mg/dL 0.0-0.20 N SGOT/AST (test code = AST) 21 IUnit/L 15-37 N SGPT/ALT (test code = ALT) 37 IUnit/L 12-78 N ALKALINE PHOSPHATASE TOTAL (test code = ALKP) 262 IUnit/L 45-117 H Note change in reference range due to change in reagent. [id number] 12:38:00* Test Item Value Reference Range Interpretation Comments LIPASE (test code = LIP) 153 U/L 73.0-393.0 N BASIC METABOLIC [id number] 12:28:00* Test Item Value Reference Range Interpretation Comments SODIUM (test code = NA) 129 mmol/L 136-145 L POTASSIUM (test code = K) 5.0 mmol/L 3.5-5.1 N CHLORIDE (test code = CL) 96.0 mmol/L 98-107 L CARBON DIOXIDE (test code = CO2) mmol/L 21-32 ANION GAP (test code = GAP) 10-20 GLUCOSE (test code = GLU) mg/dL 74-106 BLOOD UREA NITROGEN (test code = BUN) mg/dL 7-18 GLOMERULAR FILTRATION RATE (test code = GFR) mL/min >=60 CREATININE (test code = CREAT) mg/dL 0.55-1.02 BUN/CREATININE RATIO (test code = BUN/CREA) 10-20 CALCIUM (test code = CA) mg/dL 8.5-10.1 HEPATIC FUNCTION [id number] 12:28:00* Test Item Value Reference Range Interpretation Comments TOTAL PROTEIN (test code = PROT) gram/dL 6.4-8.2 ALBUMIN (test code = ALB) g/dL 3.4-5.0 GLOBULIN (test code = GLOB) gram/dL 2.7-4.2 ALBUMIN/GLOBULIN RATIO (test code = A/G) 0.75-1.50 BILIRUBIN TOTAL (test code = BILT) mg/dL 0.0-1.0 BILIRUBIN DIRECT (test code = BILD) mg/dL 0.0-0.20 SGOT/AST (test code = AST) IUnit/L 15-37 SGPT/ALT (test code = ALT) IUnit/L 12-78 ALKALINE PHOSPHATASE TOTAL (test code = ALKP) IUnit/L 45-117 [id number] 12:28:00* Test Item Value Reference Range Interpretation Comments LIPASE (test code = LIP) U/L 73.0-393.0 CBC W/O [id number] 12:01:00* Test Item Value Reference Range Interpretation Comments WHITE BLOOD CELL (test code = WBC) 5.1 K/mm3 4.5-12.5 N RED BLOOD CELL (test code = RBC) 3.96 mill/mm3 3.7-5.2 N HEMOGLOBIN (test code = HGB) 11.7 gram/dL 11.5-15.5 N HEMATOCRIT (test code = HCT) 36.2 % 36.0-46.0 N MEAN CELL VOLUME (test code = MCV) 91.4 fL 80-98 N MEAN CELL HGB (test code = MCH) 29.5 picogram 27.0-33.0 N MEAN CELL HGB CONCETRATION (test code = MCHC) 32.3 gram/dL 33.0-36. 0 L RED CELL DISTRIBUTION WIDTH (test code = RDW) 14.4 % 11.6-16. 2 N PLATELET COUNT (test code = PLT) 124 K/mm3 150-450 L MEAN PLATELET VOLUME (test code = MPV) 10.2 fL 6.7-11.0 N CBC W/O [id number] 11:59:00* Test Item Value Reference Range Interpretation Comments WHITE BLOOD CELL (test code = WBC) K/mm3 4.5-12.5 RED BLOOD CELL (test code = RBC) mill/mm3 3.7-5.2 HEMOGLOBIN (test code = HGB) 11.7 gram/dL 11.5-15.5 N HEMATOCRIT (test code = HCT) 36.2 % 36.0-46.0 N MEAN CELL VOLUME (test code = MCV) fL 80-98 MEAN CELL HGB (test code = MCH) picogram 27.0-33.0 MEAN CELL HGB CONCETRATION (test code = MCHC) gram/dL 33.0-36. 0 RED CELL DISTRIBUTION WIDTH (test code = RDW) % 11.6-16. 2 PLATELET COUNT (test code = PLT) K/mm3 150-450 MEAN PLATELET VOLUME (test code = MPV) fL 6.7-11.0 BASIC METABOLIC [id number] 12:13:00* Test Item Value Reference Range Interpretation Comments SODIUM (test code = NA) 135 mmol/L 136-145 L POTASSIUM (test code = K) 4.6 mmol/L 3.5-5.1 N CHLORIDE (test code = CL) 96.0 mmol/L 98-107 L CARBON DIOXIDE (test code = CO2) 33.0 mmol/L 21-32 H ANION GAP (test code = GAP) 10.6 10-20 N GLUCOSE (test code = GLU) 228 mg/dL 74-106 H BLOOD UREA NITROGEN (test code = BUN) 30 mg/dL 7-18 H GLOMERULAR FILTRATION RATE (test code = GFR) 7 mL/min >=60 Estimated GFR by using Modified MDRD formula.Chronic kidney disease is defined as either kidney damageor GFR <60 mL/min/1.73 m2 for >3 months. CREATININE (test code = CREAT) 6.30 mg/dL 0.55-1.02 H Note change in reference range due to change in reagent. BUN/CREATININE RATIO (test code = BUN/CREA) 4.8 10-20 L CALCIUM (test code = CA) 8.9 mg/dL 8.5-10.1 N [id number] 12:13:00* Test Item Value Reference Range Interpretation Comments TROPONIN-I (test code = TROPI) <0.015 ng/mL 0-0.045 N PROTHROMBIN [id number] 12:05:00* Test Item Value Reference Range Interpretation Comments PROTHROMBIN TIME PATIENT (test code = PTP) 26.0 seconds 9.0-14.0 H INTERNATIONAL NORMAL RATIO (test code = INR) 2.2 0.8-1.2 H The therapeutic range for oral anticoagulant therapy formost indications is an international normalized ratio (INR)of between 2.0 and 3.0. The recommended therapeutic INRrange for various clinical situations is listed below: Clinical Situation INR range Pulmonary e mbolism treatment (2.0-3.0)Venous thrombosis treatmentVenous thrombosis prophylaxis (high risk surgery)Prevention of systemic embolism from: Acute myocardial infarction Valvular heart disease Atrial fibrillation Mechanical prosthetic heart valves (2.5-3.5) IS PATIENT ON ANTICOAGULANTS? YLIST ANTICOAGULANTS COUMADINTHROMBOPLASTIN TIME [id number] 12:05:00* Test Item Value Reference Range Interpretation Comments THROMBOPLASTIN TIME PARTIAL (test code = PTT) 47.9 seconds 25.0-36. 5 H IS PATIENT ON ANTICOAGULANTS? YLIST ANTICOAGULANTS COUMADINHEPATIC FUNCTION [id number] 12:02:00* Test Item Value Reference Range Interpretation Comments TOTAL PROTEIN (test code = PROT) 7.4 gram/dL 6.4-8.2 N ALBUMIN (test code = ALB) 3.7 g/dL 3.4-5.0 N GLOBULIN (test code = GLOB) 3.7 gram/dL 2.7-4.2 N ALBUMIN/GLOBULIN RATIO (test code = A/G) 1.0 0.75-1.50 N BILIRUBIN TOTAL (test code = BILT) 0.30 mg/dL 0.0-1.0 N BILIRUBIN DIRECT (test code = BILD) 0.12 mg/dL 0.0-0.20 N SGOT/AST (test code = AST) 24 IUnit/L 15-37 N SGPT/ALT (test code = ALT) 34 IUnit/L 12-78 N ALKALINE PHOSPHATASE TOTAL (test code = ALKP) 181 IUnit/L 45-117 H Note change in reference range due to change in reagent. [id number] 12:02:00* Test Item Value Reference Range Interpretation Comments LIPASE (test code = LIP) 233 U/L 73.0-393.0 N BASIC METABOLIC [id number] 12:00:00* Test Item Value Reference Range Interpretation Comments SODIUM (test code = NA) 135 mmol/L 136-145 L POTASSIUM (test code = K) 4.6 mmol/L 3.5-5.1 N CHLORIDE (test code = CL) 96.0 mmol/L 98-107 L CARBON DIOXIDE (test code = CO2) mmol/L 21-32 ANION GAP (test code = GAP) 10-20 GLUCOSE (test code = GLU) mg/dL 74-106 BLOOD UREA NITROGEN (test code = BUN) mg/dL 7-18 GLOMERULAR FILTRATION RATE (test code = GFR) mL/min >=60 CREATININE (test code = CREAT) mg/dL 0.55-1.02 BUN/CREATININE RATIO (test code = BUN/CREA) 10-20 CALCIUM (test code = CA) mg/dL 8.5-10.1 [id number] 12:00:00* Test Item Value Reference Range Interpretation Comments TROPONIN-I (test code = TROPI) ng/mL 0-0.045 CBC W/O [id number] 11:57:00* Test Item Value Reference Range Interpretation Comments WHITE BLOOD CELL (test code = WBC) 4.9 K/mm3 4.5-12.5 N RED BLOOD CELL (test code = RBC) 4.09 mill/mm3 3.7-5.2 N HEMOGLOBIN (test code = HGB) 11.8 gram/dL 11.5-15.5 N HEMATOCRIT (test code = HCT) 39.2 % 36.0-46.0 N MEAN CELL VOLUME (test code = MCV) 95.8 fL 80-98 N MEAN CELL HGB (test code = MCH) 28.9 picogram 27.0-33.0 N MEAN CELL HGB CONCETRATION (test code = MCHC) 30.1 gram/dL 33.0-36. 0 L RED CELL DISTRIBUTION WIDTH (test code = RDW) 14.7 % 11.6-16. 2 N PLATELET COUNT (test code = PLT) 146 K/mm3 150-450 L MEAN PLATELET VOLUME (test code = MPV) 10.0 fL 6.7-11.0 N TROPONIN I [id number] 11:27:00* Test Item Value Reference Range Interpretation Comments TROPONIN I RAPID (test code = TROPIRAP) 0.00 ng/mL <0.08 Please Note New Reference Range 0.00-0.079 ng/mL - Negative>or= 0.08 ng/mL - Positive The use of serial sampling and testing protocol is arecommended practice.An elevated troponin level alone is often not sufficient fordiagnosis of myocardial infarction. Troponin results obtained by different assays may vary.Evaluation of the extent of myocardial damage based onincrease of troponin would be valid only if similarmethodology is used. PROTHROMBIN [id number] 11:06:00* Test Item Value Reference Range Interpretation Comments PROTHROMBIN TIME PATIENT (test code = PTP) 25.3 seconds 9.0-14.0 H INTERNATIONAL NORMAL RATIO (test code = INR) 2.1 0.8-1.2 H The therapeutic range for oral anticoagulant therapy formost indications is an international normalized ratio (INR)of between 2.0 and 3.0. The recommended therapeutic INRrange for various clinical situations is listed below: Clinical Situation INR range Pulmonary e mbolism treatment (2.0-3.0)Venous thrombosis treatmentVenous thrombosis prophylaxis (high risk surgery)Prevention of systemic embolism from: Acute myocardial infarction Valvular heart disease Atrial fibrillation Mechanical prosthetic heart valves (2.5-3.5) - XR CHEST 1 [id number] 11:04:00 FAX: Alaina Ramos MD [phone] [place]: St: REG FAX: Keron West DO Name: ERIN SCHILLING [facility] : 1950 Age/S: 67/F [address] [facility] Unit #: [id number] Loc: [place] [address] Phys: Keron West DO Acct: [id number] Dis Date: Status: REG ER PHONE #: [phone] Exam Date: 08/25/2018 1046 FAX #: [phone] Reason: CHEST PAIN EXAMS: CPT CODE: [id number] XR CHEST 1 V 36877 HISTORY: Chest pain. COMPARISON: June 08, 2018. No acute infiltrates, effusion or congestion is noted. The cardiac and mediastinal silhouette are within normal limits. IMPRESSION: No acute infiltrates, effusion or congestion. at 1104 Reported and signed by: Jamie Lovell M.D. CC: Alaina Alonzo; Keron West DO Technologist: Nadeen Mcintosh(R)Jacinto CHURCH(R) Trnscrd Date/Time/By: 08/25/2018 (4628) : By: [email or web address] Orig Print D/T: S: 08/25/2018 (5021) PAGE 1 Signed Report PROTHROMBIN [id number] 12:39:00* Test Item Value Reference Range Interpretation Comments PROTHROMBIN TIME PATIENT (test code = PTP) 29.3 seconds 9.0-14.0 H INTERNATIONAL NORMAL RATIO (test code = INR) 2.5 0.8-1.2 H The therapeutic range for oral anticoagulant therapy formost indications is an international normalized ratio (INR)of between 2.0 and 3.0. The recommended therapeutic INRrange for various clinical situations is listed below: Clinical Situation INR range Pulmonary e mbolism treatment (2.0-3.0)Venous thrombosis treatmentVenous thrombosis prophylaxis (high risk surgery)Prevention of systemic embolism from: Acute myocardial infarction Valvular heart disease Atrial fibrillation Mechanical prosthetic heart valves (2.5-3.5) BASIC METABOLIC [id number] 10:43:00* Test Item Value Reference Range Interpretation Comments SODIUM (test code = NA) 131 mmol/L 136-145 L POTASSIUM (test code = K) 6.5 mmol/L 3.5-5.1 HH Re sults called to [id number] by V.[email or web address].LDB 06/08/18 1036Critical results verified and read back by Nurse? Y CHLORIDE (test code = CL) 94.0 mmol/L 98-107 L CARBON DIOXIDE (test code = CO2) 27.0 mmol/L 21-32 N ANION GAP (test code = GAP) 16.5 10-20 N GLUCOSE (test code = GLU) 186 mg/dL 74-106 H BLOOD UREA NITROGEN (test code = BUN) 52 mg/dL 7-18 H GLOMERULAR FILTRATION RATE (test code = GFR) 5 mL/min >=60 Estimated GFR by using Modified MDRD formula.Chronic kidney disease is defined as either kidney damageor GFR <60 mL/min/1.73 m2 for >3 months. CREATININE (test code = CREAT) 7.80 mg/dL 0.55-1.02 H Note change in reference range due to change in reagent. BUN/CREATININE RATIO (test code = BUN/CREA) 6.7 10-20 L CALCIUM (test code = CA) 8.7 mg/dL 8.5-10.1 N HEPATIC FUNCTION [id number] 10:43:00* Test Item Value Reference Range Interpretation Comments TOTAL PROTEIN (test code = PROT) 7.9 gram/dL 6.4-8.2 N ALBUMIN (test code = ALB) 3.2 g/dL 3.4-5.0 L GLOBULIN (test code = GLOB) 4.7 gram/dL 2.7-4.2 H ALBUMIN/GLOBULIN RATIO (test code = A/G) 0.7 0.75-1.50 L BILIRUBIN TOTAL (test code = BILT) 0.40 mg/dL 0.0-1.0 N BILIRUBIN DIRECT (test code = BILD) 0.11 mg/dL 0.0-0.20 N SGOT/AST (test code = AST) 19 IUnit/L 15-37 N SGPT/ALT (test code = ALT) 18 IUnit/L 12-78 N ALKALINE PHOSPHATASE TOTAL (test code = ALKP) 148 IUnit/L 45-117 H Note change in reference range due to change in reagent. [id number] 10:43:00* Test Item Value Reference Range Interpretation Comments LIPASE (test code = LIP) 370 U/L 73.0-393.0 N PROTHROMBIN [id number] 08:38:00* Test Item Value Reference Range Interpretation Comments PROTHROMBIN TIME PATIENT (test code = PTP) 21.3 seconds 9.0-14.0 H INTERNATIONAL NORMAL RATIO (test code = INR) 1.8 0.8-1.2 H The therapeutic range for oral anticoagulant therapy formost indications is an international normalized ratio (INR)of between 2.0 and 3.0. The recommended therapeutic INRrange for various clinical situations is listed below: Clinical Situation INR range Pulmonary e mbolism treatment (2.0-3.0)Venous thrombosis treatmentVenous thrombosis prophylaxis (high risk surgery)Prevention of systemic embolism from: Acute myocardial infarction Valvular heart disease Atrial fibrillation Mechanical prosthetic heart valves (2.5-3.5) IS PATIENT ON ANTICOAGULANTS? N- XR CHEST 1 [id number] 07:45:00 FAX: Alaina Ramos MD [phone] [place]: St: REG FAX: Tigre Rangel MD [phone] FAX: Keron West DO --------- Name: ERIN SCHILLING [facility] : 1950 Age/S: 67/F [address] [facility] it #: [id number] Loc: [place] [address] Phys: Tigre Rangel MD Acct: [id number] Dis Date: Status: REG ER PH ONE #: [phone] Exam Date: 06/08/2018 0708 FAX #: [phone] Reason: cough EXAMS: CPT CODE: [id number] XR CHEST 1 V 30508 REASON FOR EXAM: cough EXAM ORDER DATE: 06/08/2018 6:58 AM Ordering Torito: Tigre Rangel MD PROCEDURE: - XR CHEST 1 V COMPARISON: 05/05/2018 FINDINGS: Portable AP frontal view of the chest obtained at 7:08 AM shows patchy airspace opacity of the bases. There is no evidence of effusion. The heart size is minimally enlarged. Pulmonary vasculatures are unremarkable. IMPRESSION: Patc hy atelectasis of the bases more pronounced on the right Niki ctronically Signed by Torito Macias on 06/08/2018 at 0745 Reported and signed by: Miguel Macias M.D. CC: Alaina Alonzo; Tigre Mark MD; Keron West DO Technologist: Jeremiah Kory RT(R) Trnscrd Date/Time/By: 06/08/2018 (0745) : By: IsiahVTL Orig Print D/T: S: 06/08/2018 (0748) PAGE 1 Signed Report - CT C-SPINE W/O [id number] 07:44:00 Name: ERIN SCHILLING [facility] : 1950 Age/S: 67 / F [address] [facility] Unit #: [id number] Loc: [place] [address] Phys: Tigre Rangel MD Acct: [id number] Dis Date: Status: REG ER PHONE #: [phone] Exam Date: 06/08/2018 0659 FAX #: [phone] Reason: neck pain EXAMS: CPT CODE: [id number] CT C-SPINE W/O CONTRAST 66943 REASON FOR EXAM: neck pain EXAM ORDER DATE: 06/08/2018 6:47 AM Ordering M.D.: Tigre Rangel MD PROCEDURE: - CT C-SPINE W/O CONTRAST FINDINGS: CT images of the cervical spine were obtained without IV contrast at 2.5mm. Reconstructed coronal and sagittal images were also provided. Dose modulation, iterative reconstruction, and/or weight based adjustment of the MA/KV was utilized to reduce the radiation dose to as low as reasonably achievable. The osseous structures are intact. Osteophytes are seen at C6-7 The central canal is patent. Mild narrowing of C6-7 disc space IMPRESSION: Degenerative changes and disc disease at C6-7. No acute findings at 0744 Reported and signed by: Miguel Macias M.D. CC: Alaina Alonzo; Tigre Rangel MD; Keron West DO Technologist:Jorge Barragan RT(R),(MR),(CT) CTDI: DLP: Trnscb Date/Time: 06/08/2018 (0744) IsiahVTL Orig Print D/T: S: 06/08/2018 (0747) CTDI: DLP: PAGE 1 Signed Report - CT HEAD/BRAIN W/O [id number] 07:43:00 Name: ERIN SCHILLING [facility] : 1950 Age/S: 67 / F [address] Unit #: [id number] Loc: [place] [address] Phys: Tiger Rangel MD Acct: [id number] Dis Date: Status: REG ER PHONE #: [phone] Exam Date: 06/08/2018 0659 FAX #: [phone] Reason: headache fall coumadin EXAMS: CPT CODE: [id number] CT HEAD/BRAIN W/O CONT 25299 REASON FOR EXAM: headache fall coumadin EXAM ORDER DATE: 06/08/2018 6:47 AM Ordering M.DYokasta: Tigre Rangel MD PROCEDURE: - CT HEAD/BRAIN W/O CONT COMPARISON: 05/02/2018 FINDINGS: CT images of the brain were obtained without IV contrast. Dose modulation, iterative reconstruction, and/or weight based adjustment of the MA/KV was utilized to reduce the radiation dose to as low as reasonably achievable. The brain parenchyma is within normal limits. The chiang-white matter delineation is unremarkable. The ventricles, cisterns, and sulci are unremarkable. There is no evidence of hemorrhage, mass, mass effect. There is no evidence of acute or old infarct. The calvarium is intact. IMPRESSION: Unremarkable brain. at 0743 Reported and signed by: Miguel Macias M.D. CC: Alaina Alonzo; Tigre Rangel MD; Keron West DO Technologist:Jorge Barragan RT(R),(MR),(CT) CTDI: DLP: Trnscb Date/Time: 06/08/2018 (0743) t.SDR.VTL Orig Print D/T: S: 06/08/2018 (0746) CTDI: DLP: PAGE 1 Signed Report - CT ABD PELVIS [id number] 06:59:00 Name: ERIN SCHILLING [facility] : 1950 Age/S: 67 / F [address] Unit #: [id number] Loc: [place] [address] Phys: Keron West DO Acct: [id number] Dis Date: Status: REG ER PHONE #: [phone] Exam Date: 06/08/2018 0644 FAX #: [phone] Reason: colostomy site swelling EXAMS: CPT CODE: [id number] CT ABD PELVIS W/CONT 83294 AFTER HOURS SERVICE ON: 06/08/2018 6:[address] Scan of the Abdomen and Pelvis With Contrast Location Code M12 History: colostomy site swelling Technique: Axial and reconstructed coronal scans were performed on a helical scanner post IV contrast. One or more of the following dose reduction techniques were used: Automated exposure control, adjustment of the mA and/or kV according to patient size, and/or utilization of iterative reconstruction technique. Findings: 8 mm and 10 mm right lower lobe pulmonary nodules are seen which are stable from 2017. There is no residual pleural venous gas compared to the prior examination. Gallbladder is surgically absent. Pancreas is unremarkable. Spleen is within normal limits. There is mild nodular thickening of the left adrenal gland which is stable. Kidneys are atrophic. Multiple nonobstructing bilateral renal calculi are seen measuring up to 5 mm, also without significant change from the prior examination. Bladder is incompletely filled. There is no pelvic free fluid. The uterus is absent. There is no adnexal mass. There is a right mid abdominal colostomy. There is no evidence of a significant peristomal hernia. There is no bowel obstruction, pneumatosis or free air. Stool is present in the colon as well as in the colostomy segment. The appendix is not visualized. Impression: Right abdominal colostomy appears intact. There is no bowel obstruction or parastomal hernia. No inflammatory changes or fluid collection related to the colostomy site. Stable 8 and 10 mm right lower lobe pulmonary nodules since September 2017. If not previously performed, recommend full evaluation of the chest. PAGE 1 Signed Report (CONTINUED) Name: ERIN SCHILLING [facility] : 1950 Age/S: 67 / F [address] [facility] Unit #: [id number] Loc: [place] [address] Phys: Keron West DO Acct: [id number] Dis Date: Status: REG ER PHONE #: [phone] Exam Date: 06/08/2018 0644 FAX #: [phone] Reason: colostomy site swelling EXAMS: CPT CODE: [id number] CT ABD PELVIS W/CONT 74539 < Continued> at 0659 Reported and signed by: Abdon Saleh M.D. CC: Alaina Alonzo; Keron West DO Technologist:MAHESH VAZQUEZ, RT; [place] CTDI: DLP: Trnscb Date/Time: 06/08/2018 (658) [email or web address] Orig Print D/T: S: 06/08/2018 (07) CTDI: DLP: PAGE 2 Signed Report CBC W/O [id number] 06:45:00* Test Item Value Reference Range Interpretation Comments WHITE BLOOD CELL (test code = WBC) 5.5 K/mm3 4.5-12.5 N RED BLOOD CELL (test code = RBC) 4.50 mill/mm3 3.7-5.2 N HEMOGLOBIN (test code = HGB) 12.9 gram/dL 11.5-15.5 N HEMATOCRIT (test code = HCT) 43.3 % 36.0-46.0 N MEAN CELL VOLUME (test code = MCV) 96.2 fL 80-98 N MEAN CELL HGB (test code = MCH) 28.7 picogram 27.0-33.0 N MEAN CELL HGB CONCETRATION (test code = MCHC) 29.8 gram/dL 33.0-36. 0 L RED CELL DISTRIBUTION WIDTH (test code = RDW) 14.8 % 11.6-16. 2 N PLATELET COUNT (test code = PLT) 189 K/mm3 150-450 N MEAN PLATELET VOLUME (test code = MPV) 9.7 fL 6.7-11.0 N CBC W/O [id number] 06:44:00* Test Item Value Reference Range Interpretation Comments WHITE BLOOD CELL (test code = WBC) K/mm3 4.5-12.5 RED BLOOD CELL (test code = RBC) mill/mm3 3.7-5.2 HEMOGLOBIN (test code = HGB) 12.9 gram/dL 11.5-15.5 N HEMATOCRIT (test code = HCT) 43.3 % 36.0-46.0 N MEAN CELL VOLUME (test code = MCV) fL 80-98 MEAN CELL HGB (test code = MCH) picogram 27.0-33.0 MEAN CELL HGB CONCETRATION (test code = MCHC) gram/dL 33.0-36. 0 RED CELL DISTRIBUTION WIDTH (test code = RDW) % 11.6-16. 2 PLATELET COUNT (test code = PLT) K/mm3 150-450 MEAN PLATELET VOLUME (test code = MPV) fL 6.7-11.0 PROTHROMBIN [id number] 12:55:00* Test Item Value Reference Range Interpretation Comments PROTHROMBIN TIME PATIENT (test code = PTP) 21.5 seconds 9.0-14.0 H INTERNATIONAL NORMAL RATIO (test code = INR) 1.8 0.8-1.2 H The therapeutic range for oral anticoagulant therapy formost indications is an international normalized ratio (INR)of between 2.0 and 3.0. The recommended therapeutic INRrange for various clinical situations is listed below: Clinical Situation INR range Pulmonary e mbolism treatment (2.0-3.0)Venous thrombosis treatmentVenous thrombosis prophylaxis (high risk surgery)Prevention of systemic embolism from: Acute myocardial infarction Valvular heart disease Atrial fibrillation Mechanical prosthetic heart valves (2.5-3.5) [id number] 10:20:00* Test Item Value Reference Range Interpretation Comments LIDOCAINE (test code = LIDO) None Detected ug/mL 1.5-5.0 Detection Limit = 0.2 <0.2 indicates None DetectedPerformed At: [facility] [address] [id number] Hameed MD Ph:[phone] CBC W/O [id number] 17:27:00* Test Item Value Reference Range Interpretation Comments WHITE BLOOD CELL (test code = WBC) 8.9 K/mm3 4.5-12.5 N RED BLOOD CELL (test code = RBC) 3.53 mill/mm3 3.7-5.2 L HEMOGLOBIN (test code = HGB) 10.5 gram/dL 11.5-15.5 L HEMATOCRIT (test code = HCT) 33.8 % 36.0-46.0 L MEAN CELL VOLUME (test code = MCV) 95.8 fL 80-98 N MEAN CELL HGB (test code = MCH) 29.7 picogram 27.0-33.0 N MEAN CELL HGB CONCETRATION (test code = MCHC) 31.1 gram/dL 33.0-36. 0 L RED CELL DISTRIBUTION WIDTH (test code = RDW) 15.1 % 11.6-16. 2 N PLATELET COUNT (test code = PLT) 215 K/mm3 150-450 N MEAN PLATELET VOLUME (test code = MPV) 9.9 fL 6.7-11.0 N TROPONIN I [id number] 17:14:00* Test Item Value Reference Range Interpretation Comments TROPONIN I RAPID (test code = TROPIRAP) 0.00 ng/mL <0.08 Please Note New Reference Range 0.00-0.079 ng/mL - Negative>or= 0.08 ng/mL - Positive The use of serial sampling and testing protocol is arecommended practice.An elevated troponin level alone is often not sufficient fordiagnosis of myocardial infarction. Troponin results obtained by different assays may vary.Evaluation of the extent of myocardial damage based onincrease of troponin would be valid only if similarmethodology is used. - XR CHEST 1 [id number] 16:45:00 FAX: Musa Chan [phone] [place]: B St: REG FAX: Alaina Ramos MD [phone] Name: ERIN SCHILLING [facility] : 1950 Age/S: 67/F [address] Unit #: [id number] Loc: [place] [address] Phys: Musa Harris MD Acct: [id number] Dis Date: Status: REG ER PHONE #: [phone] Exam Date: 05/05/2018 1643 FAX #: [phone] Reason: CHEST PAIN EXAMS: CPT CODE: [id number] XR CHEST 1 V 02455 REASON FOR EXAM: CHEST PAIN EXAM ORDER DATE: 05/05/2018 4:22 PM Ordering M.Bree: Musa Harris MD PROCEDURE: - XR CHEST 1 V COMPARISON: 05/01/2018 FINDINGS: Portable AP frontal view of the chest obtained at 4:41 PM shows clear lungs. There is no evidence of consolidation. There is no evidence of effusion. The heart size is within normal limits. Pulmonary vasculatures are unremarkable. IMPRESSION: No active disease. at 9803 Reported and signed by: Miguel Macias M.D. CC: Swetha Harris MD; Alaina Alonzo Technologist: RODERICK WHARTON [facility] Date/Time/By: 05/05/2018 (4289) : By: Jose Orig Print D/T: S: 05/05/2018 (6977) PAGE 1 Signed Report SYNOVIAL FLD CELL CT/[id number] 09:44:00* Test Item Value Reference Range Interpretation Comments FLUID WBC AUTO (test code = WBCFLA) 25110 cells/uL FLUID RBC AUTO (test code = RBCFLA) 05696 cells/uL FLUID TOTAL CELLS (test code = TCFL) 79678 cells/uL >0 Fluid WBC RBC Type cells/uL cells/uL CSF (0-5) n/a Peritoneal n/a n/a Pleural n/a n/a Synovial <200 n/a CSF (0-30) n/a SYNOVIAL FLD COLOR (test code = COLSY) YELLOW SYNOVIAL FLD APPEARANCE (test code = APPSY) CLOUDY SYNOVIAL FLD VOLUME (test code = VOLSY) 22 mL SYNOVIAL FLD POLY (test code = POLYSY) 97.0 % SYNOVIAL FLD MACROPHAGE (test code = MACSY) 3.0 % TOTAL CELLS COUNTED ON DIFF (test code = TOTCELLFL) 100 cells REVIEWED BY (test code = REVIEW) CLAIRE HENSLEY PATHOLOGIST Reviewed by CLAIRE Novoa "REVIEWED" 05/05/18 SYNOVIAL FLD [id number] 09:44:00* Test Item Value Reference Range Interpretation Comments SYNOVIAL FLD GLUCOSE (test code = GLUSY) 25 mg/dL SYNOVIAL FLD TOTAL [id number] 09:44:00* Test Item Value Reference Range Interpretation Comments SYNOVIAL FLD TOTAL PROTEIN (test code = PROTSY) 4.5 gram/dL [id number] 17:36:00* Test Item Value Reference Range Interpretation Comments GLUBED (test code = GLUBED) 283 mg/dL 74-106 H Performed by certified call center operator at [facility] [id number] 17:30:00* Test Item Value Reference Range Interpretation Comments GLUBED (test code = GLUBED) 251 mg/dL 74-106 H Performed by certified call center operator at [facility] SYNOVIAL FLD [id number] 13:17:00* Test Item Value Reference Range Interpretation Comments SYNOVIAL FLD CRYSTALS (test code = CRYSY) Note: None seen No crystals seen under normal or polarized light.Results verified by concentration technique.Performed At: [facility] [id number] Rush Mack MD Ph:[phone] [id number] 11:54:00* Test Item Value Reference Range Interpretation Comments GLUBED (test code = GLUBED) 274 mg/dL 74-106 H Performed by certified call center operator at [facility] BASIC METABOLIC [id number] 09:24:00* Test Item Value Reference Range Interpretation Comments SODIUM (test code = NA) 132 mmol/L 136-145 L POTASSIUM (test code = K) 5.4 mmol/L 3.5-5.1 H CHLORIDE (test code = CL) 95.0 mmol/L 98-107 L CARBON DIOXIDE (test code = CO2) 24.0 mmol/L 21-32 N ANION GAP (test code = GAP) 18.4 10-20 N GLUCOSE (test code = GLU) 329 mg/dL 74-106 H BLOOD UREA NITROGEN (test code = BUN) 67 mg/dL 7-18 H GLOMERULAR FILTRATION RATE (test code = GFR) 5 mL/min >=60 Estimated GFR by using Modified MDRD formula.Chronic kidney disease is defined as either kidney damageor GFR <60 mL/min/1.73 m2 for >3 months. CREATININE (test code = CREAT) 8.30 mg/dL 0.55-1.02 H Note change in reference range due to change in reagent. BUN/CREATININE RATIO (test code = BUN/CREA) 8.1 10-20 L CALCIUM (test code = CA) 8.6 mg/dL 8.5-10.1 N [id number] 08:16:00* Test Item Value Reference Range Interpretation Comments GLUBED (test code = GLUBED) 285 mg/dL 74-106 H Performed by certified call center operator at [facility] CBC W/O [id number] 07:26:00* Test Item Value Reference Range Interpretation Comments WHITE BLOOD CELL (test code = WBC) 8.4 K/mm3 4.5-12.5 N RED BLOOD CELL (test code = RBC) 4.02 mill/mm3 3.7-5.2 N HEMOGLOBIN (test code = HGB) 11.8 gram/dL 11.5-15.5 N HEMATOCRIT (test code = HCT) 37.9 % 36.0-46.0 N MEAN CELL VOLUME (test code = MCV) 94.3 fL 80-98 N MEAN CELL HGB (test code = MCH) 29.4 picogram 27.0-33.0 N MEAN CELL HGB CONCETRATION (test code = MCHC) 31.1 gram/dL 33.0-36. 0 L RED CELL DISTRIBUTION WIDTH (test code = RDW) 14.6 % 11.6-16. 2 N PLATELET COUNT (test code = PLT) 167 K/mm3 150-450 N MEAN PLATELET VOLUME (test code = MPV) 10.3 fL 6.7-11.0 N [id number] 01:02:00* Test Item Value Reference Range Interpretation Comments GLUBED (test code = GLUBED) 397 mg/dL 74-106 H Performed by certified call center operator at [facility] [id number] 20:36:00* Test Item Value Reference Range Interpretation Comments GLUBED (test code = GLUBED) 367 mg/dL 74-106 H Performed by certified call center operator at [facility] SYNOVIAL FLD CELL [id number] 17:30:00* Test Item Value Reference Range Interpretation Comments FLUID WBC AUTO (test code = WBCFLA) 33289 cells/uL FLUID RBC AUTO (test code = RBCFLA) 85966 cells/uL FLUID TOTAL CELLS (test code = TCFL) 33510 cells/uL >0 Fluid WBC RBC Type cells/uL cells/uL CSF (0-5) n/a Peritoneal n/a n/a Pleural n/a n/a Synovial <200 n/a CSF (0-30) n/a SYNOVIAL FLD COLOR (test code = COLSY) YELLOW SYNOVIAL FLD APPEARANCE (test code = APPSY) CLOUDY SYNOVIAL FLD VOLUME (test code = VOLSY) 22 mL SYNOVIAL FLD POLY (test code = POLYSY) 97.0 % SYNOVIAL FLD MACROPHAGE (test code = MACSY) 3.0 % TOTAL CELLS COUNTED ON DIFF (test code = TOTCELLFL) 100 cells REVIEWED BY (test code = REVIEW) PATHOLOGIST SYNOVIAL FLD [id number] 17:30:00* Test Item Value Reference Range Interpretation Comments SYNOVIAL FLD GLUCOSE (test code = GLUSY) 25 mg/dL SYNOVIAL FLD TOTAL [id number] 17:30:00* Test Item Value Reference Range Interpretation Comments SYNOVIAL FLD TOTAL PROTEIN (test code = PROTSY) 4.5 gram/dL [id number] 16:58:00* Test Item Value Reference Range Interpretation Comments GLUBED (test code = GLUBED) 263 mg/dL 74-106 H Performed by certified call center operator at [facility] SED [id number] 15:27:00* Test Item Value Reference Range Interpretation Comments SED RATE (test code = SEDW) 116 mm/hr 0-30 H SED [id number] 15:26:00* Test Item Value Reference Range Interpretation Comments SED RATE (test code = SEDW) 116 mm/hr 0-30 H SYNOVIAL FLD CELL [id number] 14:31:00* Test Item Value Reference Range Interpretation Comments FLUID WBC AUTO (test code = WBCFLA) 54529 cells/uL FLUID RBC AUTO (test code = RBCFLA) 13286 cells/uL FLUID TOTAL CELLS (test code = TCFL) 70881 cells/uL >0 Fluid WBC RBC Type cells/uL cells/uL CSF (0-5) n/a Peritoneal n/a n/a Pleural n/a n/a Synovial <200 n/a CSF (0-30) n/a SYNOVIAL FLD COLOR (test code = COLSY) YELLOW SYNOVIAL FLD APPEARANCE (test code = APPSY) CLOUDY SYNOVIAL FLD VOLUME (test code = VOLSY) 22 mL SYNOVIAL FLD WBC (test code = WBCSY) per uL 0-200 SYNOVIAL FLD RBC (test code = RBCSY) per uL TOTAL CELLS COUNTED ON DIFF (test code = TOTCELLFL) cells REVIEWED BY (test code = REVIEW) PATHOLOGIST SYNOVIAL FLD [id number] 14:31:00* Test Item Value Reference Range Interpretation Comments SYNOVIAL FLD CRYSTALS (test code = CRYSY) CRYSTALS NONE SEEN SYNOVIAL FLD [id number] 14:31:00* Test Item Value Reference Range Interpretation Comments SYNOVIAL FLD GLUCOSE (test code = GLUSY) 25 mg/dL SYNOVIAL FLD TOTAL [id number] 14:31:00* Test Item Value Reference Range Interpretation Comments SYNOVIAL FLD TOTAL PROTEIN (test code = PROTSY) 4.5 gram/dL SYNOVIAL FLD CELL [id number] 14:27:00* Test Item Value Reference Range Interpretation Comments FLUID TOTAL CELLS (test code = TCFL) cells/uL >0 SYNOVIAL FLD COLOR (test code = COLSY) YELLOW SYNOVIAL FLD APPEARANCE (test code = APPSY) CLOUDY SYNOVIAL FLD VOLUME (test code = VOLSY) 22 mL SYNOVIAL FLD WBC (test code = WBCSY) per uL 0-200 SYNOVIAL FLD RBC (test code = RBCSY) per uL TOTAL CELLS COUNTED ON DIFF (test code = TOTCELLFL) cells REVIEWED BY (test code = REVIEW) PATHOLOGIST SYNOVIAL FLD [id number] 14:27:00* Test Item Value Reference Range Interpretation Comments SYNOVIAL FLD CRYSTALS (test code = CRYSY) CRYSTALS NONE SEEN SYNOVIAL FLD [id number] 14:27:00* Test Item Value Reference Range Interpretation Comments SYNOVIAL FLD GLUCOSE (test code = GLUSY) 25 mg/dL SYNOVIAL FLD TOTAL [id number] 14:27:00* Test Item Value Reference Range Interpretation Comments SYNOVIAL FLD TOTAL PROTEIN (test code = PROTSY) 4.5 gram/dL SYNOVIAL FLD CELL [id number] 14:25:00* Test Item Value Reference Range Interpretation Comments FLUID TOTAL CELLS (test code = TCFL) cells/uL >0 SYNOVIAL FLD COLOR (test code = COLSY) YELLOW SYNOVIAL FLD APPEARANCE (test code = APPSY) CLOUDY SYNOVIAL FLD VOLUME (test code = VOLSY) mL SYNOVIAL FLD WBC (test code = WBCSY) per uL 0-200 SYNOVIAL FLD RBC (test code = RBCSY) per uL TOTAL CELLS COUNTED ON DIFF (test code = TOTCELLFL) cells REVIEWED BY (test code = REVIEW) PATHOLOGIST SYNOVIAL FLD [id number] 14:25:00* Test Item Value Reference Range Interpretation Comments SYNOVIAL FLD CRYSTALS (test code = CRYSY) CRYSTALS NONE SEEN SYNOVIAL FLD [id number] 14:25:00* Test Item Value Reference Range Interpretation Comments SYNOVIAL FLD GLUCOSE (test code = GLUSY) 25 mg/dL SYNOVIAL FLD TOTAL [id number] 14:25:00* Test Item Value Reference Range Interpretation Comments SYNOVIAL FLD TOTAL PROTEIN (test code = PROTSY) 4.5 gram/dL SYNOVIAL FLD CELL [id number] 13:31:00* Test Item Value Reference Range Interpretation Comments FLUID TOTAL CELLS (test code = TCFL) cells/uL >0 SYNOVIAL FLD COLOR (test code = COLSY) SYNOVIAL FLD APPEARANCE (test code = APPSY) SYNOVIAL FLD VOLUME (test code = VOLSY) mL SYNOVIAL FLD WBC (test code = WBCSY) per uL 0-200 SYNOVIAL FLD RBC (test code = RBCSY) per uL TOTAL CELLS COUNTED ON DIFF (test code = TOTCELLFL) cells REVIEWED BY (test code = REVIEW) PATHOLOGIST SYNOVIAL FLD [id number] 13:31:00* Test Item Value Reference Range Interpretation Comments SYNOVIAL FLD CRYSTALS (test code = CRYSY) CRYSTALS NONE SEEN SYNOVIAL FLD [id number] 13:31:00* Test Item Value Reference Range Interpretation Comments SYNOVIAL FLD GLUCOSE (test code = GLUSY) 25 mg/dL SYNOVIAL FLD TOTAL [id number] 13:31:00* Test Item Value Reference Range Interpretation Comments SYNOVIAL FLD TOTAL PROTEIN (test code = PROTSY) 4.5 gram/dL C REACTIVE [id number] 13:13:00* Test Item Value Reference Range Interpretation Comments C REACTIVE PROTEIN (test code = CRP) 23.60 mg/dL 0-0.3 H [id number] 12:44:00* Test Item Value Reference Range Interpretation Comments GLUBED (test code = GLUBED) 185 mg/dL 74-106 H Performed by certified call center operator at [facility] [id number] 12:37:00* Test Item Value Reference Range Interpretation Comments GLUBED (test code = GLUBED) 205 mg/dL 74-106 H Performed by certified call center operator at [facility] - MRI UP JNT W/O CONT [id number] 08:37:00 FAX: Alaina Ramos MD [phone] [place]: St: ADM FAX: Seth Mccord MD [phone] FAX: Haley Flannery MD [phone] Name: ERIN SCHILLING [facility] : 1950 Age/S: 67/F [address] [facility] Unit #: [id number] Loc: V.30[address] [place] [address] Phys: Seth Benito MD Acct: [id number] Dis Date: Status: ADM IN ONE #: [phone] Exam Date: 05/02/2018 2100 FAX #: [phone] Reason: shoulder pain EXAMS: CPT CODE: [id number] MR I UP JNT W/[place] [id number] HISTORY: Shoul monique pain. COMPARISON: None available MRI right shoul monique without contrast: Full-thickness full width tear of the supras pinatus tendon with retraction of the tendons to the level of the AC joint with marked atrophy of the supraspinatus muscle with diffuse fatty infilt ration. Moderate subacromial and subdeltoid joint fluid. Edema within th e deltoid muscle as well. Full-thickness tear of the infrasp inatus tendon with edema and atrophy as well. Bicipital tendon remains wi thin its groove and is not subluxed or displaced. Large partial tear of t he subscapularis tendon with with superior fibers still intact. Detached anterior labrum. Poorly visualized posterior labrum is intact. Marked lo ss of articular cartilage. Glenohumeral ligaments are intact including the humeral attachment. No fracture. No bone bruise. Subchond ral cysts within the humeral head. AC joint hypertrophy. Acromion is typ e I in configuration and is not downsloping. IMPRESSION: Full-thickness full width tear of the supraspinatus and infrasp inatus tendon and large partial tear of the subscapularis tendon. The supraspinatus tendon is retracted past the AC joint with severe a trophy of the infra and supraspinatus muscles. Edema within th e infraspinatus muscle. Edema of the deltoid muscle with large subdelto id and soft acromial bursal fluid. Detached anterior labrum. * * at 0837 Reported and signed by: Jamie Lovell M.D. PAGE 1 Signed Report (CONTINUED) FAX: Alaina Ramos MD [phone] [place]: St: ADM FAX: Seth Mccord MD [phone] FAX: Haley Flannery MD [phone] Name: ERIN HENAO [facility] : 1950 Age/S: 67/F [address] [facility] Unit #: [id number] Loc: V.3042 [place] [address] Phys: Seth Benito MD Acct: [id number] Dis Date: Status: ADM IN PHONE #: [phone] Exam Date: 05/02/2018 2100 FAX #: [phone] R rosa elena: shoulder pain EXAMS: CPT CODE: [id number] MRI UP JNT W/[place] [id number] <Continued> CC: Alaina Alonzo; Seth Benito MD; Haley Flannery MD Technologist: TAYLA NYE,RT - MRI Trnscrd Date/Time/By: 05/03/2018 (0837) : By: [email or web address] Orig Print D/T: S: 05/03/2018 (0840) PAGE 2 Signed Report [id number] 07:46:00* Test Item Value Reference Range Interpretation Comments GLUBED (test code = GLUBED) 164 mg/dL 74-106 H Performed by certified call center operator at [facility] AB HEPATITIS B [id number] 07:24:00* Test Item Value Reference Range Interpretation Comments AB HEPATITIS B SURFACE (test code = HBSAB) Non Reactive () Non Reactive: Inconsistent with immunity, less than 10 mIU/mL Reactive: Consistent with immunity, greater than 9.9 mIU/mLPerformed At: [facility] [id number] Rush Mack MD Ph:[phone] BASIC METABOLIC [id number] 06:05:00* Test Item Value Reference Range Interpretation Comments SODIUM (test code = NA) 134 mmol/L 136-145 L POTASSIUM (test code = K) 4.4 mmol/L 3.5-5.1 N CHLORIDE (test code = CL) 99.0 mmol/L 98-107 N CARBON DIOXIDE (test code = CO2) 23.0 mmol/L 21-32 N ANION GAP (test code = GAP) 16.4 10-20 N GLUCOSE (test code = GLU) 168 mg/dL 74-106 H BLOOD UREA NITROGEN (test code = BUN) 38 mg/dL 7-18 H GLOMERULAR FILTRATION RATE (test code = GFR) 7 mL/min >=60 Estimated GFR by using Modified MDRD formula.Chronic kidney disease is defined as either kidney damageor GFR <60 mL/min/1.73 m2 for >3 months. CREATININE (test code = CREAT) 6.30 mg/dL 0.55-1.02 H Note change in reference range due to change in reagent. BUN/CREATININE RATIO (test code = BUN/CREA) 6.0 10-20 L CALCIUM (test code = CA) 8.6 mg/dL 8.5-10.1 N CBC W/AUTO [id number] 06:05:00* Test Item Value Reference Range Interpretation Comments WHITE BLOOD CELL (test code = WBC) 7.5 K/mm3 4.5-12.5 N RED BLOOD CELL (test code = RBC) 3.81 mill/mm3 3.7-5.2 N HEMOGLOBIN (test code = HGB) 11.3 gram/dL 11.5-15.5 L HEMATOCRIT (test code = HCT) 37.9 % 36.0-46.0 N MEAN CELL VOLUME (test code = MCV) 98.7 fL 80-98 H MEAN CELL HGB (test code = MCH) 29.7 picogram 27.0-33.0 N MEAN CELL HGB CONCETRATION (test code = MCHC) 30.1 gram/dL 33.0-36. 0 L RED CELL DISTRIBUTION WIDTH (test code = RDW) 15.3 % 11.6-16. 2 N RED CELL DISTRIBUTION WIDTH SD (test code = RDW-SD) 55.4 fL 37 .0-51.0 H PLATELET COUNT (test code = PLT) 149 K/mm3 150-450 L MEAN PLATELET VOLUME (test code = MPV) 10.4 fL 6.7-11.0 N NEUTROPHIL % (test code = NT%) 82.0 % 39.0-69.0 H IMMATURE GRANULOCYTE % (test code = IG%) 0.3 % 0.0-5.0 N LYMPHOCYTE % (test code = LY%) 7.9 % 25.0-55.0 L MONOCYTE % (test code = MO%) 8.1 % 0.0-10.0 N EOSINOPHIL % (test code = EO%) 1.3 % 0.0-5.0 N BASOPHIL % (test code = BA%) 0.4 % 0.0-1.0 N NUCLEATED RBC % (test code = NRBC%) 0.0 % 0-0 N NEUTROPHIL # (test code = NT#) 6.16 K/mm3 1.8-7.7 N IMMATURE GRANULOCYTE # (test code = IG#) 0.02 x10 3/uL 0-0.03 N LYMPHOCYTE # (test code = LY#) 0.59 K/mm3 1.0-5.0 L MONOCYTE # (test code = MO#) 0.61 K/mm3 0-0.8 N EOSINOPHIL # (test code = EO#) 0.10 K/mm3 0.0-0.5 N BASOPHIL # (test code = BA#) 0.03 K/mm3 0.0-0.2 N NUCLEATED RBC # (test code = NRBC#) 0.00 K/mm3 0.0-0.1 N MANUAL DIFF REQUIRED (test code = MDIFF) NO, ONLY SCAN NEEDED DIFFERENTIAL [id number] 06:05:00* Test Item Value Reference Range Interpretation Comments STAIN ACCEPTABILITY (test code = STN ACCEPTABLE) STAIN ACCEPTABLE POLYCHROMASIA (test code = POLC) 1+ ANISOCYTOSIS (test code = ANISO) 1+ PLATELET ESTIMATE (test code = PLTEST) ADEQUATE PLATELET MORPHOLOGY (test code = PLTMORPH) NORMAL BASIC METABOLIC [id number] 05:55:00* Test Item Value Reference Range Interpretation Comments SODIUM (test code = NA) 134 mmol/L 136-145 L POTASSIUM (test code = K) 4.4 mmol/L 3.5-5.1 N CHLORIDE (test code = CL) 99.0 mmol/L 98-107 N CARBON DIOXIDE (test code = CO2) mmol/L 21-32 ANION GAP (test code = GAP) 10-20 GLUCOSE (test code = GLU) mg/dL 74-106 BLOOD UREA NITROGEN (test code = BUN) mg/dL 7-18 GLOMERULAR FILTRATION RATE (test code = GFR) mL/min >=60 CREATININE (test code = CREAT) mg/dL 0.55-1.02 BUN/CREATININE RATIO (test code = BUN/CREA) 10-20 CALCIUM (test code = CA) mg/dL 8.5-10.1 CBC W/AUTO [id number] 05:42:00* Test Item Value Reference Range Interpretation Comments WHITE BLOOD CELL (test code = WBC) 7.5 K/mm3 4.5-12.5 N RED BLOOD CELL (test code = RBC) 3.81 mill/mm3 3.7-5.2 N HEMOGLOBIN (test code = HGB) 11.3 gram/dL 11.5-15.5 L HEMATOCRIT (test code = HCT) 37.9 % 36.0-46.0 N MEAN CELL VOLUME (test code = MCV) 98.7 fL 80-98 H MEAN CELL HGB (test code = MCH) 29.7 picogram 27.0-33.0 N MEAN CELL HGB CONCETRATION (test code = MCHC) 30.1 gram/dL 33.0-36. 0 L RED CELL DISTRIBUTION WIDTH (test code = RDW) 15.3 % 11.6-16. 2 N RED CELL DISTRIBUTION WIDTH SD (test code = RDW-SD) 55.4 fL 37 .0-51.0 H PLATELET COUNT (test code = PLT) 149 K/mm3 150-450 L MEAN PLATELET VOLUME (test code = MPV) 10.4 fL 6.7-11.0 N NEUTROPHIL % (test code = NT%) 82.0 % 39.0-69.0 H IMMATURE GRANULOCYTE % (test code = IG%) 0.3 % 0.0-5.0 N LYMPHOCYTE % (test code = LY%) 7.9 % 25.0-55.0 L MONOCYTE % (test code = MO%) 8.1 % 0.0-10.0 N EOSINOPHIL % (test code = EO%) 1.3 % 0.0-5.0 N BASOPHIL % (test code = BA%) 0.4 % 0.0-1.0 N NUCLEATED RBC % (test code = NRBC%) 0.0 % 0-0 N NEUTROPHIL # (test code = NT#) 6.16 K/mm3 1.8-7.7 N IMMATURE GRANULOCYTE # (test code = IG#) 0.02 x10 3/uL 0-0.03 N LYMPHOCYTE # (test code = LY#) 0.59 K/mm3 1.0-5.0 L MONOCYTE # (test code = MO#) 0.61 K/mm3 0-0.8 N EOSINOPHIL # (test code = EO#) 0.10 K/mm3 0.0-0.5 N BASOPHIL # (test code = BA#) 0.03 K/mm3 0.0-0.2 N NUCLEATED RBC # (test code = NRBC#) 0.00 K/mm3 0.0-0.1 N MANUAL DIFF REQUIRED (test code = MDIFF) NO, ONLY SCAN NEEDED DIFFERENTIAL [id number] 05:42:00* Test Item Value Reference Range Interpretation Comments STAIN ACCEPTABILITY (test code = STN ACCEPTABLE) CABOT RINGS (test code = CAB) MORPHOLOGY COMMENT (test code = MOC) PLATELET ESTIMATE (test code = PLTEST) PLATELET MORPHOLOGY (test code = PLTMORPH) CBC W/AUTO [id number] 05:42:00* Test Item Value Reference Range Interpretation Comments WHITE BLOOD CELL (test code = WBC) 7.5 K/mm3 4.5-12.5 N RED BLOOD CELL (test code = RBC) 3.81 mill/mm3 3.7-5.2 N HEMOGLOBIN (test code = HGB) 11.3 gram/dL 11.5-15.5 L HEMATOCRIT (test code = HCT) 37.9 % 36.0-46.0 N MEAN CELL VOLUME (test code = MCV) 98.7 fL 80-98 H MEAN CELL HGB (test code = MCH) 29.7 picogram 27.0-33.0 N MEAN CELL HGB CONCETRATION (test code = MCHC) 30.1 gram/dL 33.0-36. 0 L RED CELL DISTRIBUTION WIDTH (test code = RDW) 15.3 % 11.6-16. 2 N RED CELL DISTRIBUTION WIDTH SD (test code = RDW-SD) 55.4 fL 37 .0-51.0 H PLATELET COUNT (test code = PLT) 149 K/mm3 150-450 L MEAN PLATELET VOLUME (test code = MPV) 10.4 fL 6.7-11.0 N NEUTROPHIL % (test code = NT%) 82.0 % 39.0-69.0 H IMMATURE GRANULOCYTE % (test code = IG%) 0.3 % 0.0-5.0 N LYMPHOCYTE % (test code = LY%) 7.9 % 25.0-55.0 L MONOCYTE % (test code = MO%) 8.1 % 0.0-10.0 N EOSINOPHIL % (test code = EO%) 1.3 % 0.0-5.0 N BASOPHIL % (test code = BA%) 0.4 % 0.0-1.0 N NUCLEATED RBC % (test code = NRBC%) 0.0 % 0-0 N NEUTROPHIL # (test code = NT#) 6.16 K/mm3 1.8-7.7 N IMMATURE GRANULOCYTE # (test code = IG#) 0.02 x10 3/uL 0-0.03 N LYMPHOCYTE # (test code = LY#) 0.59 K/mm3 1.0-5.0 L MONOCYTE # (test code = MO#) 0.61 K/mm3 0-0.8 N EOSINOPHIL # (test code = EO#) 0.10 K/mm3 0.0-0.5 N BASOPHIL # (test code = BA#) 0.03 K/mm3 0.0-0.2 N NUCLEATED RBC # (test code = NRBC#) 0.00 K/mm3 0.0-0.1 N MANUAL DIFF REQUIRED (test code = MDIFF) NO, ONLY SCAN NEEDED DIFFERENTIAL [id number] 05:42:00* Test Item Value Reference Range Interpretation Comments STAIN ACCEPTABILITY (test code = STN ACCEPTABLE) MORPHOLOGY COMMENT (test code = MOC) PLATELET ESTIMATE (test code = PLTEST) PLATELET MORPHOLOGY (test code = PLTMORPH) CBC W/AUTO [id number] 05:41:00* Test Item Value Reference Range Interpretation Comments WHITE BLOOD CELL (test code = WBC) 7.5 K/mm3 4.5-12.5 N RED BLOOD CELL (test code = RBC) 3.81 mill/mm3 3.7-5.2 N HEMOGLOBIN (test code = HGB) 11.3 gram/dL 11.5-15.5 L HEMATOCRIT (test code = HCT) 37.9 % 36.0-46.0 N MEAN CELL VOLUME (test code = MCV) 98.7 fL 80-98 H MEAN CELL HGB (test code = MCH) 29.7 picogram 27.0-33.0 N MEAN CELL HGB CONCETRATION (test code = MCHC) 30.1 gram/dL 33.0-36. 0 L RED CELL DISTRIBUTION WIDTH (test code = RDW) 15.3 % 11.6-16. 2 N RED CELL DISTRIBUTION WIDTH SD (test code = RDW-SD) 55.4 fL 37 .0-51.0 H PLATELET COUNT (test code = PLT) 149 K/mm3 150-450 L MEAN PLATELET VOLUME (test code = MPV) 10.4 fL 6.7-11.0 N NEUTROPHIL % (test code = NT%) 82.0 % 39.0-69.0 H IMMATURE GRANULOCYTE % (test code = IG%) 0.3 % 0.0-5.0 N LYMPHOCYTE % (test code = LY%) 7.9 % 25.0-55.0 L MONOCYTE % (test code = MO%) 8.1 % 0.0-10.0 N EOSINOPHIL % (test code = EO%) 1.3 % 0.0-5.0 N BASOPHIL % (test code = BA%) 0.4 % 0.0-1.0 N NUCLEATED RBC % (test code = NRBC%) 0.0 % 0-0 N NEUTROPHIL # (test code = NT#) 6.16 K/mm3 1.8-7.7 N IMMATURE GRANULOCYTE # (test code = IG#) 0.02 x10 3/uL 0-0.03 N LYMPHOCYTE # (test code = LY#) 0.59 K/mm3 1.0-5.0 L MONOCYTE # (test code = MO#) 0.61 K/mm3 0-0.8 N EOSINOPHIL # (test code = EO#) 0.10 K/mm3 0.0-0.5 N BASOPHIL # (test code = BA#) 0.03 K/mm3 0.0-0.2 N NUCLEATED RBC # (test code = NRBC#) 0.00 K/mm3 0.0-0.1 N MANUAL DIFF REQUIRED (test code = MDIFF) NO, ONLY SCAN NEEDED DIFFERENTIAL [id number] 05:41:00* Test Item Value Reference Range Interpretation Comments STAIN ACCEPTABILITY (test code = STN ACCEPTABLE) CABOT RINGS (test code = CAB) MORPHOLOGY COMMENT (test code = MOC) PLATELET ESTIMATE (test code = PLTEST) PLATELET MORPHOLOGY (test code = PLTMORPH) CBC W/AUTO [id number] 05:41:00* Test Item Value Reference Range Interpretation Comments WHITE BLOOD CELL (test code = WBC) 7.5 K/mm3 4.5-12.5 N RED BLOOD CELL (test code = RBC) 3.81 mill/mm3 3.7-5.2 N HEMOGLOBIN (test code = HGB) 11.3 gram/dL 11.5-15.5 L HEMATOCRIT (test code = HCT) 37.9 % 36.0-46.0 N MEAN CELL VOLUME (test code = MCV) 98.7 fL 80-98 H MEAN CELL HGB (test code = MCH) 29.7 picogram 27.0-33.0 N MEAN CELL HGB CONCETRATION (test code = MCHC) 30.1 gram/dL 33.0-36. 0 L RED CELL DISTRIBUTION WIDTH (test code = RDW) 15.3 % 11.6-16. 2 N RED CELL DISTRIBUTION WIDTH SD (test code = RDW-SD) 55.4 fL 37 .0-51.0 H PLATELET COUNT (test code = PLT) 149 K/mm3 150-450 L MEAN PLATELET VOLUME (test code = MPV) 10.4 fL 6.7-11.0 N NEUTROPHIL % (test code = NT%) 82.0 % 39.0-69.0 H IMMATURE GRANULOCYTE % (test code = IG%) 0.3 % 0.0-5.0 N LYMPHOCYTE % (test code = LY%) 7.9 % 25.0-55.0 L MONOCYTE % (test code = MO%) 8.1 % 0.0-10.0 N EOSINOPHIL % (test code = EO%) 1.3 % 0.0-5.0 N BASOPHIL % (test code = BA%) 0.4 % 0.0-1.0 N NUCLEATED RBC % (test code = NRBC%) 0.0 % 0-0 N NEUTROPHIL # (test code = NT#) 6.16 K/mm3 1.8-7.7 N IMMATURE GRANULOCYTE # (test code = IG#) 0.02 x10 3/uL 0-0.03 N LYMPHOCYTE # (test code = LY#) 0.59 K/mm3 1.0-5.0 L MONOCYTE # (test code = MO#) 0.61 K/mm3 0-0.8 N EOSINOPHIL # (test code = EO#) 0.10 K/mm3 0.0-0.5 N BASOPHIL # (test code = BA#) 0.03 K/mm3 0.0-0.2 N NUCLEATED RBC # (test code = NRBC#) 0.00 K/mm3 0.0-0.1 N MANUAL DIFF REQUIRED (test code = MDIFF) NO, ONLY SCAN NEEDED DIFFERENTIAL [id number] 05:41:00* Test Item Value Reference Range Interpretation Comments STAIN ACCEPTABILITY (test code = STN ACCEPTABLE) CABOT RINGS (test code = CAB) MORPHOLOGY COMMENT (test code = MOC) PLATELET ESTIMATE (test code = PLTEST) PLATELET MORPHOLOGY (test code = PLTMORPH) CBC W/AUTO [id number] 05:35:00* Test Item Value Reference Range Interpretation Comments WHITE BLOOD CELL (test code = WBC) K/mm3 4.5-12.5 RED BLOOD CELL (test code = RBC) mill/mm3 3.7-5.2 HEMOGLOBIN (test code = HGB) gram/dL 11.5-15.5 HEMATOCRIT (test code = HCT) 37.9 % 36.0-46.0 N MEAN CELL VOLUME (test code = MCV) fL 80-98 MEAN CELL HGB (test code = MCH) picogram 27.0-33.0 MEAN CELL HGB CONCETRATION (test code = MCHC) gram/dL 33.0-36. 0 RED CELL DISTRIBUTION WIDTH (test code = RDW) % 11.6-16. 2 RED CELL DISTRIBUTION WIDTH SD (test code = RDW-SD) fL 37 .0-51.0 PLATELET COUNT (test code = PLT) K/mm3 150-450 MEAN PLATELET VOLUME (test code = MPV) fL 6.7-11.0 NEUTROPHIL % (test code = NT%) % 39.0-69.0 IMMATURE GRANULOCYTE % (test code = IG%) % 0.0-5.0 LYMPHOCYTE % (test code = LY%) % 25.0-55.0 MONOCYTE % (test code = MO%) % 0.0-10.0 EOSINOPHIL % (test code = EO%) % 0.0-5.0 BASOPHIL % (test code = BA%) % 0.0-1.0 NEUTROPHIL # (test code = NT#) K/mm3 1.8-7.7 LYMPHOCYTE # (test code = LY#) K/mm3 1.0-5.0 MONOCYTE # (test code = MO#) K/mm3 0-0.8 EOSINOPHIL # (test code = EO#) K/mm3 0.0-0.5 BASOPHIL # (test code = BA#) K/mm3 0.0-0.2 [id number] 21:48:00* Test Item Value Reference Range Interpretation Comments GLUBED (test code = GLUBED) 194 mg/dL 74-106 H Performed by certified call center operator at [facility] - XR SHOULDER 2 + V [id number] 16:22:00 FAX: Alaina Ramos MD [phone] [place]: St: ADM FAX: Seth Mccord MD [phone] FAX: Haley Flannery MD [phone] Name: ERIN SCHILLING [facility] : 1950 Age/S: 67/F [address] [facility] Unit #: [id number] Loc: V.3042 [place] [address] Phys: Seth Benito MD Acct: [id number] Dis Date: Status: ADM IN ONE #: [phone] Exam Date: 05/02/2018 1610 FAX #: [phone] Reason: pain EXAMS: CPT CODE: [id number] XR SHOULDER 2 + [place] [address] REASON FOR EXAM: pain EXAM ORDER DATE: 05/02/2018 12:00 AM Ordering Torito: Seth Benito MD PROCEDURE: - XR SHOULDER 2 + V LT FINDINGS: 3 views of the left shoulder were o btained. The osseous structures are unremarkable in size and shape with sm all spurs seen within the distal left clavicle. The joint spaces are maint ained. Mild elevation of the left humeral head. No evidence of fracture. The acromial clavicular joint is intact IMPRESSION: Mild elevation of the left humeral head suggestive of chronic rotator cuff di sease at 1622 Reported and signed by: Miguel Macias M.D. CC: Alaina Alonzo; Seth Benito MD; Haley Flannery MD Technologist: Constantino sarmiento RT(R) Trnscrd Date/Time/By: 05/02/2018 (7504) : By: ShelleyL Orig Print D/T: S: 05/02/2018 (6635) PAGE 1 Signed Report - XR SHOULDER 2 + V [id number] 13:31:00 FAX: Alaina Ramos MD [phone] [place]: St: [facility] FAX: Haley Flannery MD [phone] Name: ERIN SCHILLING [facility] : 1950 Age/S: 67/F [address] [facility] Unit #: [id number] Loc: V.3042 [place] [address] Phys: Haley Flannery MD Acct: [id number] Dis Date: Status: ADM IN PHONE #: [phone] Exam Date: 05/02/2018 1306 FAX #: [phone] Reason: right shoulder pain EXAMS: CPT CODE: [id number] XR SHOULDER 2 + V RT [address] HISTORY: Right shoulder pain. COMPARISON: None sara ilable. 3 views of the right shoulder: No acute frac ture or dislocation. Mildly narrowed shoulder and AC joints. High riding humeral head may suggest chronic rotator cuff tear. Scapula and glenoid are normal. Visualized lungs are clear. IMPRESSION: No acute fracture or dislocation. High riding humeral head may s uggest chronic rotator cuff tear. at 2400 Reported and signed by: Swetha Lovell M.D. CC: Alaina Alonzo; Haley Flannery MD Technologist: CLAUDIA WAY RT(R) Trnscrd Date/Time/By: 05/02/2018 (8089) : By: [email or web address] Orig Print D/T: S: 05/02/2018 (0460) PAGE 1 Signed Report - CT HEAD/BRAIN W/O CONT 2018-05-02 13:28:00 Name: ERIN SCHILLING [facility] : 1950 Age/S: 67 / F [address] Unit #: [id number] Loc: [place] [address] Phys: Haley Flannery MD Acct: [id number] Dis Date: Status: ADM IN PHONE #: [phone] Exam Date: 05/02/2018 1308 FAX #: [phone] Reason: confusion EXAMS: CPT CODE: [id number] CT HEAD/BRAIN W/O CONT 69216 REASON FOR EXAM: confusion EXAM ORDER DATE: 05/02/2018 10:06 PM Ordering MLuis Angel: Haley Flannery MD PROCEDURE: - CT HEAD/BRAIN W/O CONT COMPARISON: 08/22/2017 FINDINGS: CT images of the brain were obtained without IV contrast. Dose reduction techniques were applied. The brain parenchyma is within normal limits. The chiang-white matter delineation is unremarkable. The ventricles, cisterns, and sulci are unremarkable. There is no evidence of hemorrhage, mass, mass effect. There is no evidence of acute or old infarct. The calvarium is intact. IMPRESSION: Unremarkable brain. at 1328 Reported and signed by: Miguel Macias M.D. CC: Alaina Alonzo; Haley Flannery MD Technologist:Jorge Barragan RT(R),(MR),(CT) CTDI: DLP: Trnscb Date/Time: 05/02/2018 (1328) [email or web address] Orig Print D/T: S: 05/03/2018 (8715) CTDI: DLP: PAGE 1 Signed Report AG HEPAT B [id number] 08:48:00 * Test Item Value Reference Range Interpretation Comments AG HEPAT B SURF (test code = HBSAG) Nonreactive Index Nonreactive [id number] 06:41:00* Test Item Value Reference Range Interpretation Comments GLUBED (test code = GLUBED) 187 mg/dL 74-106 H Performed by certified call center operator at [facility] BASIC METABOLIC [id number] 05:32:00* Test Item Value Reference Range Interpretation Comments SODIUM (test code = NA) 134 mmol/L 136-145 L POTASSIUM (test code = K) 5.2 mmol/L 3.5-5.1 H CHLORIDE (test code = CL) 93.0 mmol/L 98-107 L CARBON DIOXIDE (test code = CO2) 29.0 mmol/L 21-32 N ANION GAP (test code = GAP) 17.2 10-20 N GLUCOSE (test code = GLU) 213 mg/dL 74-106 H BLOOD UREA NITROGEN (test code = BUN) 68 mg/dL 7-18 H RESULT VERIFIED BY REPEAT ANALYSIS GLOMERULAR FILTRATION RATE (test code = GFR) 4 mL/min >=60 Estimated GFR by using Modified MDRD formula.Chronic kidney disease is defined as either kidney damageor GFR <60 mL/min/1.73 m2 for >3 months. CREATININE (test code = CREAT) 9.50 mg/dL 0.55-1.02 H Note change in reference range due to change in reagent. BUN/CREATININE RATIO (test code = BUN/CREA) 7.2 10-20 L CALCIUM (test code = CA) 8.1 mg/dL 8.5-10.1 L BASIC METABOLIC [id number] 04:54:00* Test Item Value Reference Range Interpretation Comments SODIUM (test code = NA) 134 mmol/L 136-145 L POTASSIUM (test code = K) 5.2 mmol/L 3.5-5.1 H CHLORIDE (test code = CL) 93.0 mmol/L 98-107 L CARBON DIOXIDE (test code = CO2) mmol/L 21-32 ANION GAP (test code = GAP) 10-20 GLUCOSE (test code = GLU) mg/dL 74-106 BLOOD UREA NITROGEN (test code = BUN) mg/dL 7-18 GLOMERULAR FILTRATION RATE (test code = GFR) mL/min >=60 CREATININE (test code = CREAT) mg/dL 0.55-1.02 BUN/CREATININE RATIO (test code = BUN/CREA) 10-20 CALCIUM (test code = CA) mg/dL 8.5-10.1 [id number] 04:47:00* Test Item Value Reference Range Interpretation Comments GLYCOSYLATED HEMOGLOBIN (HA1C) (test code = GLYHGB) 8.6 % HbA1 4. 8-6.0 H ESTIMATED AVERAGE GLUCOSE (test code = EAG) 200 MG/DL CBC W/AUTO [id number] 04:14:00* Test Item Value Reference Range Interpretation Comments WHITE BLOOD CELL (test code = WBC) 10.0 K/mm3 4.5-12.5 N RED BLOOD CELL (test code = RBC) 3.99 mill/mm3 3.7-5.2 N HEMOGLOBIN (test code = HGB) 11.9 gram/dL 11.5-15.5 N HEMATOCRIT (test code = HCT) 38.8 % 36.0-46.0 N MEAN CELL VOLUME (test code = MCV) 97.2 fL 80-98 N MEAN CELL HGB (test code = MCH) 29.8 picogram 27.0-33.0 N MEAN CELL HGB CONCETRATION (test code = MCHC) 30.7 gram/dL 33.0-36. 0 L RED CELL DISTRIBUTION WIDTH (test code = RDW) 15.3 % 11.6-16. 2 N RED CELL DISTRIBUTION WIDTH SD (test code = RDW-SD) 54.4 fL 37 .0-51.0 H PLATELET COUNT (test code = PLT) 155 K/mm3 150-450 N MEAN PLATELET VOLUME (test code = MPV) 9.3 fL 6.7-11.0 N NEUTROPHIL % (test code = NT%) 86.3 % 39.0-69.0 H IMMATURE GRANULOCYTE % (test code = IG%) 0.2 % 0.0-5.0 N LYMPHOCYTE % (test code = LY%) 6.1 % 25.0-55.0 L MONOCYTE % (test code = MO%) 6.2 % 0.0-10.0 N EOSINOPHIL % (test code = EO%) 1.0 % 0.0-5.0 N BASOPHIL % (test code = BA%) 0.2 % 0.0-1.0 N NUCLEATED RBC % (test code = NRBC%) 0.0 % 0-0 N NEUTROPHIL # (test code = NT#) 8.63 K/mm3 1.8-7.7 H IMMATURE GRANULOCYTE # (test code = IG#) 0.02 x10 3/uL 0-0.03 N LYMPHOCYTE # (test code = LY#) 0.61 K/mm3 1.0-5.0 L MONOCYTE # (test code = MO#) 0.62 K/mm3 0-0.8 N EOSINOPHIL # (test code = EO#) 0.10 K/mm3 0.0-0.5 N BASOPHIL # (test code = BA#) 0.02 K/mm3 0.0-0.2 N NUCLEATED RBC # (test code = NRBC#) 0.00 K/mm3 0.0-0.1 N CBC W/AUTO [id number] 04:13:00* Test Item Value Reference Range Interpretation Comments WHITE BLOOD CELL (test code = WBC) K/mm3 4.5-12.5 RED BLOOD CELL (test code = RBC) mill/mm3 3.7-5.2 HEMOGLOBIN (test code = HGB) 11.9 gram/dL 11.5-15.5 N HEMATOCRIT (test code = HCT) 38.8 % 36.0-46.0 N MEAN CELL VOLUME (test code = MCV) fL 80-98 MEAN CELL HGB (test code = MCH) picogram 27.0-33.0 MEAN CELL HGB CONCETRATION (test code = MCHC) gram/dL 33.0-36. 0 RED CELL DISTRIBUTION WIDTH (test code = RDW) % 11.6-16. 2 RED CELL DISTRIBUTION WIDTH SD (test code = RDW-SD) fL 37 .0-51.0 PLATELET COUNT (test code = PLT) K/mm3 150-450 MEAN PLATELET VOLUME (test code = MPV) fL 6.7-11.0 NEUTROPHIL % (test code = NT%) % 39.0-69.0 IMMATURE GRANULOCYTE % (test code = IG%) % 0.0-5.0 LYMPHOCYTE % (test code = LY%) % 25.0-55.0 MONOCYTE % (test code = MO%) % 0.0-10.0 EOSINOPHIL % (test code = EO%) % 0.0-5.0 BASOPHIL % (test code = BA%) % 0.0-1.0 NEUTROPHIL # (test code = NT#) K/mm3 1.8-7.7 LYMPHOCYTE # (test code = LY#) K/mm3 1.0-5.0 MONOCYTE # (test code = MO#) K/mm3 0-0.8 EOSINOPHIL # (test code = EO#) K/mm3 0.0-0.5 BASOPHIL # (test code = BA#) K/mm3 0.0-0.2 [id number] 00:07:00* Test Item Value Reference Range Interpretation Comments GLUBED (test code = GLUBED) 229 mg/dL 74-106 H Performed by certified call center operator at [facility] [id number] 16:37:00* Test Item Value Reference Range Interpretation Comments GLUBED (test code = GLUBED) 234 mg/dL 74-106 H Performed by certified call center operator at [facility] ARTERIAL BLOOD [id number] 15:10:00* Test Item Value Reference Range Interpretation Comments ARTERIAL BLOOD GAS PH (test code = PHA) 7.39 7.35-7.45 N ARTERIAL BLOOD GAS PCO2 (test code = PCO2A) 58.1 mm Hg 35-45 H ARTERIAL BLOOD GAS PO2 (test code = PO2A) 75.6 mmHg 80-100 L BICARBONATE TOTAL HCO3 (test code = HCO3) 34.2 mmol/L 23.0-27.0 H BASE EXCESS (test code = LOGAN) 7.4 mmol/L -3.0-5.0 HH Results called to and read back by dr Duran 15:10 - 05/01/2018; by mireya QUEEN O2 SATURATION (test code = SATA) 94.9 % 90.0-98.0 N ABG TYPE (test code = TYPEA) Arterial FIO2 (test code = FIO2A) 28.0 MODIFIED ALLENS (test code = MODALL) Yes CHECK PERFORMED HEMATOCRIT (test code = HCT/ABG) 40 % 35-47 N TOTAL HGB (test code = THB) 13.5 gram/dL 11.5-15.5 N HGB O2 SAT (test code = HBOSAT) 93.2 % 94.00-98.00 L CARBOXYHEMOGLOBIN (test code = HOHGBT) 1.2 %totalHg 0.5-1.5 N METHEMOGLOBIN (test code = METHGB) 0.6 % 0.0-1.50 N O2 CONTENT (test code = O2CT) 17.7 % vol 18.0-22.0 L BASIC METABOLIC [id number] 14:34:00* Test Item Value Reference Range Interpretation Comments SODIUM (test code = NA) 137 mmol/L 136-145 N POTASSIUM (test code = K) 4.3 mmol/L 3.5-5.1 N CHLORIDE (test code = CL) 92.0 mmol/L 98-107 L CARBON DIOXIDE (test code = CO2) 32.0 mmol/L 21-32 N ANION GAP (test code = GAP) 17.3 10-20 N GLUCOSE (test code = GLU) 233 mg/dL 74-106 H BLOOD UREA NITROGEN (test code = BUN) 54 mg/dL 7-18 H GLOMERULAR FILTRATION RATE (test code = GFR) 5 mL/min >=60 Estimated GFR by using Modified MDRD formula.Chronic kidney disease is defined as either kidney damageor GFR <60 mL/min/1.73 m2 for >3 months. CREATININE (test code = CREAT) 8.20 mg/dL 0.55-1.02 H Note change in reference range due to change in reagent. BUN/CREATININE RATIO (test code = BUN/CREA) 6.5 10-20 L CALCIUM (test code = CA) 8.4 mg/dL 8.5-10.1 L 3+ HEMOLYSIS; NOTIFIED CASSANDA. [facility].V.LAB.[facility] 05/01/18 1302 [id number] 14:34:00* Test Item Value Reference Range Interpretation Comments TROPONIN-I (test code = TROPI) <0.015 ng/mL 0-0.045 N 3+ HEMOLYSIS; NOTIFIED CASSEMEKA. [facility].V.LAB.[facility] 05/01/18 1302 [id number] 14:27:00* Test Item Value Reference Range Interpretation Comments MAGNESIUM (test code = MAG) 2.4 mg/dL 1.8-2.4 N 3+ HEMOLYSIS; NOTIFIED CASSANDA. [facility].V.LAB.[facility] 05/01/18 1302 BASIC METABOLIC [id number] 14:23:00* Test Item Value Reference Range Interpretation Comments SODIUM (test code = NA) 137 mmol/L 136-145 N POTASSIUM (test code = K) 4.3 mmol/L 3.5-5.1 N CHLORIDE (test code = CL) 92.0 mmol/L 98-107 L CARBON DIOXIDE (test code = CO2) mmol/L 21-32 ANION GAP (test code = GAP) 10-20 GLUCOSE (test code = GLU) mg/dL 74-106 BLOOD UREA NITROGEN (test code = BUN) mg/dL 7-18 GLOMERULAR FILTRATION RATE (test code = GFR) mL/min >=60 CREATININE (test code = CREAT) mg/dL 0.55-1.02 BUN/CREATININE RATIO (test code = BUN/CREA) 10-20 CALCIUM (test code = CA) mg/dL 8.5-10.1 3+ HEMOLYSIS; NOTIFIED JASPER. [facility].V.LAB.[facility] 05/01/18 1302 [id number] 14:23:00* Test Item Value Reference Range Interpretation Comments TROPONIN-I (test code = TROPI) ng/mL 0-0.045 3+ HEMOLYSIS; NOTIFIED JASPER. [facility].V.[facility] 05/01/18 1302 TROPONIN I [id number] 13:06:00* Test Item Value Reference Range Interpretation Comments TROPONIN I RAPID (test code = TROPIRAP) 0.01 ng/mL <0.08 Please Note New Reference Range 0.00-0.079 ng/mL - Negative>or= 0.08 ng/mL - Positive The use of serial sampling and testing protocol is arecommended practice.An elevated troponin level alone is often not sufficient fordiagnosis of myocardial infarction. Troponin results obtained by different assays may vary.Evaluation of the extent of myocardial damage based onincrease of troponin would be valid only if similarmethodology is used. PROTHROMBIN [id number] 12:55:00* Test Item Value Reference Range Interpretation Comments PROTHROMBIN TIME PATIENT (test code = PTP) 13.3 seconds 9.0-14.0 N INTERNATIONAL NORMAL RATIO (test code = INR) 1.1 0.8-1.2 N The therapeutic range for oral anticoagulant therapy formost indications is an international normalized ratio (INR)of between 2.0 and 3.0. The recommended therapeutic INRrange for various clinical situations is listed below: Clinical Situation INR range Pulmonary e mbolism treatment (2.0-3.0)Venous thrombosis treatmentVenous thrombosis prophylaxis (high risk surgery)Prevention of systemic embolism from: Acute myocardial infarction Valvular heart disease Atrial fibrillation Mechanical prosthetic heart valves (2.5-3.5) IS PATIENT ON ANTICOAGULANTS? YLIST ANTICOAGULANTS COUMADINCBC W/O DIFF 2018-05-01 12:46:00* Test Item Value Reference Range Interpretation Comments WHITE BLOOD CELL (test code = WBC) 13.9 K/mm3 4.5-12.5 H RED BLOOD CELL (test code = RBC) 4.64 mill/mm3 3.7-5.2 N HEMOGLOBIN (test code = HGB) 13.5 gram/dL 11.5-15.5 N HEMATOCRIT (test code = HCT) 45.5 % 36.0-46.0 N MEAN CELL VOLUME (test code = MCV) 98.1 fL 80-98 H MEAN CELL HGB (test code = MCH) 29.1 picogram 27.0-33.0 N MEAN CELL HGB CONCETRATION (test code = MCHC) 29.7 gram/dL 33.0-36. 0 L RED CELL DISTRIBUTION WIDTH (test code = RDW) 15.3 % 11.6-16. 2 N PLATELET COUNT (test code = PLT) 178 K/mm3 150-450 N MEAN PLATELET VOLUME (test code = MPV) 9.5 fL 6.7-11.0 N CBC W/O [id number] 12:42:00* Test Item Value Reference Range Interpretation Comments WHITE BLOOD CELL (test code = WBC) K/mm3 4.5-12.5 RED BLOOD CELL (test code = RBC) mill/mm3 3.7-5.2 HEMOGLOBIN (test code = HGB) 13.5 gram/dL 11.5-15.5 N HEMATOCRIT (test code = HCT) 45.5 % 36.0-46.0 N MEAN CELL VOLUME (test code = MCV) fL 80-98 MEAN CELL HGB (test code = MCH) picogram 27.0-33.0 MEAN CELL HGB CONCETRATION (test code = MCHC) gram/dL 33.0-36. 0 RED CELL DISTRIBUTION WIDTH (test code = RDW) % 11.6-16. 2 PLATELET COUNT (test code = PLT) K/mm3 150-450 MEAN PLATELET VOLUME (test code = MPV) fL 6.7-11.0 - XR CHEST 1 [id number] 12:35:00 FAX: Musa Chan [phone] [place]: St: REG FAX: Alaina Ramos MD [phone] FAX: Tigre Rangel MD [phone] Name: ERIN SCHILLING [facility] : 1950 Age/S: 67/F [address] [facility] Unit #: [id number] Loc: [place] [address] Phys: Tigre Rangel MD Acct: [id number] Dis Date: Status: REG ER PH ONE #: [phone] Exam Date: 05/01/2018 1210 FAX #: [phone] Reason: CHEST PAIN EXAMS: CPT CODE: [id number] XR CHEST 1 V [id number] HISTORY: CHEST PAIN TECHNIQUE: AP chest x-ray COMPARISON: 01/10/18 FINDINGS: No airspace consolidation or pleural effu poncho. Normal heart size. Atherosclerotic vascular calcification of the tho racic aorta. Degenerative changes of the spine and shoulders. IMPRESSION: No radiographic evidence of acute cardiopulmo nary process. at 1235 Reported and signed by: Barbara Loja D.O. CC: Musa Harris MD; Alaina Alonzo; Tigre Rangel MD Technol ogist: VIV BOSCH RT Trnscrd Date/Time/ By: 05/01/2018 (1237) : By: [email or web address] Orig Print D/T: S: 05/01/2018 (1 963) PAGE 1 Signed Report PROTHROMBIN [id number] 18:34:00* Test Item Value Reference Range Interpretation Comments PROTHROMBIN TIME PATIENT (test code = PTP) 15.9 seconds 9.0-14.0 H INTERNATIONAL NORMAL RATIO (test code = INR) 1.3 0.8-1.2 H The therapeutic range for oral anticoagulant therapy formost indications is an international normalized ratio (INR)of between 2.0 and 3.0. The recommended therapeutic INRrange for various clinical situations is listed below: Clinical Situation INR range Pulmonary e mbolism treatment (2.0-3.0)Venous thrombosis treatmentVenous thrombosis prophylaxis (high risk surgery)Prevention of systemic embolism from: Acute myocardial infarction Valvular heart disease Atrial fibrillation Mechanical prosthetic heart valves (2.5-3.5)
--- NOTE | 2019-08-31 10:55 | Emergency Department Note ---
History of Present Illnes History of Present Illness Chief Complaint: General Medicine Complaints History of Present Illness This is a 68 year old female arrives to the ED with generalized malaise and. Patient states he cannot walk steady and feels that she's had a stroke. Patient denies any chest pain, shortness of breath or recent trauma. Chief Complaint Comment GENERALIZED WEAKNESS. GAIT UNSTEADY SINCE LAST NIGHT WITH NO IMPROVEMENT TODAY. PT AAOX4. ABLE TO STAND AND BEAR WT AND WALK SLOWLY WITH ASST. PT IS A DIALYSIS PT DUE TODAY FOR NEXT SESSION. HX AFIB/TIA. PT WITH NO NEURO DEF. AT TRIAGE TIME. PT HAS COLOSTOMY WELL. HAS NOT MISSED ANY DIALYSIS APPT. LEFT UPPER ARM GRAFT. . 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 Director Internal Communications Required: No Onset (how long ago): day(s) Radiation: non-radiation Severity: moderate Onset quality: sudden Duration (how long): hour(s) Progression: worsening Context: recent illness, trauma/injury, new medications Relieving factors: none Exacerbating factors: none Associated symptoms: weakness Past Medical/Family History Physician Review I have reviewed the patient's past medical and family history. Any updates have been documented here. Past Medical History Recent Fever: No Clinical Suspicion of Infectio: No New/Unexplained Change in Ment: No Past Medical History: Hypertension, Diabetes, Hypothyroidism, ESRD, Hyperlipedemia Other Medical History: RHEUMATOID ARTHRITI, SCIATIC NERVE, RESTLESS LEGS. Past Surgical History: Other Surgery: COLON, RIGHT BREAST- FIBROIDS REMOVED Social History Smoking Cessation: Former smoker Alcohol Use: Social Any Illegal Drug Use: No TB Exposure/Symptoms: No Physically hurt or threatened: No Family History Family history of heart diseas: No Other Last Tetanus: 2011 Review of Systems Review of Systems Constitutional: as per HPI, weakness EENTM: no symptoms Cardiovascular: no symptoms Respiratory: no symptoms Gastrointestinal: no symptoms Genitourinary: no symptoms Musculoskeletal: no symptoms Neurological: weakness Psychological: no symptoms Endocrine: no symptoms Hematological/Lymphatic: no symptoms Review of other systems All other systems reviewed and negative. Physical Exam Related Data Allergies: Coded Allergies: Penicillins (Verified Allergy, Mild, 02/21/09) Triage Vital Signs Vital Signs Date Time Temp Pulse Resp B/P (MAP) Pulse Ox O2 Delivery O2 Flow Rate FiO2 08/31/19 10:47 97.5 60 16 124/79 98 Vital signs reviewed: Yes Physical Exam CONSTITUTIONAL Constitutional: well-developed, obese HENT HENT: normocephalic, atraumatic, oropharynx clear/moist, nose normal HENT L/R: left ext ear normal, right ext ear normal EYES Eyes: PERRL, conjunctivae normal NECK Neck: ROM normal PULMONARY Pulmonary: effort normal, breath sounds normal CARDIOVASCULAR Cardiovascular: regular rhythm, heart sounds normal, capillary refill normal, normal rate GASTROINTESTINAL Abdominal: soft, nontender, bowel sounds normal GENITOURINARY Genitourinary: exam deferred SKIN Skin: warm, dry MUSCULOSKELETAL Musculoskeletal: ROM normal NEUROLOGICAL Neurological: alert, oriented x 3, abnormal gait, weakness PSYCHOLOGICAL Psychological: mood/affect normal, judgement normal Results Laboratory Lab results reviewed: Yes Laboratory comments Laboratory Tests Test 08/31/19 12:10 White Blood Count 5.80 x10e3/uL (4.8-10.8) Red Blood Count 4.25 x10e6/uL (3.6-5.1) Hemoglobin 11.6 g/dL (12.0-16.0) Hematocrit 38.4 % (34.2-44.1) Mean Corpuscular Volume 90.4 fL (81-99) Mean Corpuscular Hemoglobin 27.3 pg (28-32) Mean Corpuscular Hemoglobin Concent 30.2 g/dL (31-35) Red Cell Distribution Width 16.3 % (11.7-14.4) Platelet Count 139 x10e3/uL (140-360) Neutrophils (%) (Auto) 69.3 % (38.7-80.0) Lymphocytes (%) (Auto) 19.5 % (18.0-39.1) Monocytes (%) (Auto) 6.9 % (4.4-11.3) Eosinophils (%) (Auto) 3.1 % (0.0-6.0) Basophils (%) (Auto) 1.0 % (0.0-1.0) Neutrophils # (Auto) 4.0 (2.1-6.9) Lymphocytes # (Auto) 1.1 (1.0-3.2) Monocytes # (Auto) 0.4 (0.2-0.8) Eosinophils # (Auto) 0.2 (0.0-0.4) Basophils # (Auto) 0.1 (0.0-0.1) Absolute Immature Granulocyte (auto 0.01 x10e3/uL (0-0.1) Sodium Level 137 mmol/L (136-145) Potassium Level 4.9 mmol/L (3.5-5.1) Chloride Level 99 mmol/L (98-107) Carbon Dioxide Level 23 mmol/L (22-29) Anion Gap 19.9 mmol/L (8-16) Blood Urea Nitrogen 61 mg/dL (7-26) Creatinine 7.54 mg/dL (0.57-1.11) Estimat Glomerular Filtration Rate 5 ML/MIN (60-) BUN/Creatinine Ratio 8 (6-25) Glucose Level 109 mg/dL (74-118) Calcium Level 7.2 mg/dL (8.4-10.2) Total Bilirubin 0.3 mg/dL (0.2-1.2) Aspartate Amino Transf (AST/SGOT) 20 IU/L (5-34) Alanine Aminotransferase (ALT/SGPT) 21 IU/L (0-55) Alkaline Phosphatase 122 IU/L (40-150) Creatine Kinase 58 IU/L (29-168) Creatine Kinase MB 5.60 ng/mL (0-5.0) Troponin I 0.025 ng/mL (0-0.300) Total Protein 6.8 g/dL (6.5-8.1) Albumin 3.1 g/dL (3.5-5.0) Globulin 3.7 g/dL (2.3-3.5) Albumin/Globulin Ratio 0.8 (0.8-2.0) Imaging Imaging results reviewed: Yes Impressions Impression: 1. No acute intracranial finding. 2. Chronic microvascular ischemic change and volume loss. Procedures 12 Lead ECG Interpretation Prior HOSPITAL NURSE LIAISON tracings: reviewed Rhythm: sinus rhythm Rate: normal QRS axis: normal ST segments normal: Yes ST segment elevation: all (prolonged QT) Clinical Impression: normal ECG Critical Care Time Subsequent provider I assumed direction of critical care for this patient from another provider of my specialty. Assessment & Plan Reassessment Reassessment 60-year-old female brought to ED with complaint generalized weakness and malaise. Patient is ESRD on hemodialysis, Wednesday. Patient is scheduled for dialysis today. Assessment & Plan Final Impression: (1) ATAXIC GAIT (2) WEAKNESS (3) Weakness Assessment & Plan 60-year-old female with extensive past medical history arrives with nonspecific weakness and complaints of ataxia. Patient with a history of TIA/CVA. Patient admitted for workup including CTA brain Patient to get hemodialysis today, Dr. Albright evaluated the patient emergency department Depart Disposition: ADMITTED Last Vital Signs Date Time Temp Pulse Resp B/P (MAP) Pulse Ox O2 Delivery O2 Flow Rate FiO2 08/31/19 10:47 97.5 60 16 124/79 98 Home Meds Active Scripts Tramadol Hcl* (ULTRAM 50MG*) 50 Mg Tab, 50 MG PO Q6H PRN for Mild Pain (1-3) or Fever>100.8 for 14 Days, #14 TAB Prov:VIDA CAPELLAN NP 04/11/19 Levothyroxine Sodium (LEVOTHYROXINE SODIUM) 25 Mcg Tablet, 25 MCG PO DAILY@06 for 14 Days, #14 Prov:VIDA CAPELLAN FAMILY INDEPENDENCE CASE MANAGER 04/11/19 Reported Medications Rotigotine (NEUPRO) 1 Each Patch.td24, 4 MG TD DAILY 04/10/19 Ezetimibe (ZETIA) 10 Mg Tablet, 10 MG PO DAILY, #30 TAB 01/25/16 Meclizine Hcl (MECLIZINE HCL) 12.5 Mg Tablet, 25 MG PO TID PRN for PRN, TAB 01/25/16 Tramadol Hcl (ULTRAM) 50 Mg Tablet, 50 MG PO Q6H, TAB 01/25/16 Insulin Lispro (HUMALOG) 100 Unit/1 Ml Cartridge, 12 UNITS SC TID 01/25/16 Insulin Glargine (LANTUS) 100 Units/Ml Ml, 45 UNITS SC HS 01/25/16 Lorazepam (LORAZEPAM) 0.5 Mg Tablet, 0.5 MG PO BID, TAB 01/25/16 Gabapentin (GABAPENTIN) 300 Mg Capsule, 300 MG PO BID, #60 CAP 01/25/16 Bupropion Hcl (BUPROPION XL) 150 Mg Tab.er.24h, 300 MG PO DAILY 01/25/16 Levothyroxine Sodium (LEVOTHYROXINE SODIUM) 50 Mcg Tablet, 25 MCG PO DAILY, #30 TAB 01/25/16 Warfarin Sodium (WARFARIN SODIUM) 3 Mg Tablet, 6 MG PO DAILY, #30 TAB 01/25/16 Furosemide (LASIX) 80 Mg Tablet, DAILY 04/07/12 Amiodarone Hcl (AMIODARONE HCL) 200 Mg Tablet, 100 MG PO DAILY 04/07/12 Pravastatin Sodium (PRAVASTATIN SODIUM) 40 Mg Tablet, HS 04/07/12 Sevelamer Hcl (RENVELA) 800 Mg Tab, THREE TABS WITHMEAL 04/07/12 BULL MARTINEZ, Aug 31, 2019 10:55
--- NOTE | 2019-08-31 12:08 | Diagnostic Imaging Report ---
Examination: CT head without contrast Clinical Indication: Weakness. Technique: Transaxial noncontrast images from the skull base through the vertex were obtained. Sagittal and coronal reformatted images were done. Dose modulation, iterative reconstruction, and/or weight based adjustment of the mA/kV was utilized to reduce the radiation dose to as low as reasonably achievable. Comparison: None. Findings: Scalp: No abnormalities. Bones: Intact. No fractures. No blastic or lytic lesions. Brain sulci: Generalized volume loss for patient's age. Ventricles: No hydrocephalus. . Extra-axial space: No abnormalities. Parenchyma: There are patchy areas of low-attenuation within subcortical and periventricular white matter, nonspecific, but could represent microvascular ischemic disease. No masses, hemorrhage, or acute or chronic cortical based vascular insults. Suprasellar region: No abnormalities. Craniocervical junction: The foramen magnum is patent. No Chiari one malformation. Incidental findings: Atherosclerotic calcification of the cavernous and supraclinoid internal carotid and V4 segments of the bilateral vertebral arteries. Impression: 1. No acute intracranial finding. 2. Chronic microvascular ischemic change and volume loss. Signed by: Dr. Terri Aldridge M.D. on 08/31/2019 12:04 PM
[2019-08-31 12:26] LABS: BASOPHILS # (AUTO) 0.1 (0.0-0.1); EOSINOPHILS # (AUTO) 0.2 (0.0-0.4); EOSINOPHILS % 3.1 % (0.0-6.0); HEMATOCRIT 38.4 % (34.2-44.1); HEMOGLOBIN 11.6 g/dL (12.0-16.0); LYMPHOCYTES # (AUTO) 1.1 (1.0-3.2); LYMPHOCYTES % 19.5 % (18.0-39.1); MEAN CORPUSCULAR HEMOGLOBIN 27.3 pg (28-32); MEAN CORPUSCULAR HGB CONC 30.2 g/dL (31-35); MEAN CORPUSCULAR VOLUME 90.4 fL (81-99); MONOCYTES # (AUTO) 0.4 (0.2-0.8); MONOCYTES % 6.9 % (4.4-11.3); NEUTROPHILS % 69.3 % (38.7-80.0); PLATELET COUNT 139 x10e3/uL (140-360); RED BLOOD COUNT 4.25 x10e6/uL (3.6-5.1); RED CELL DISTRIBUTION WIDTH 16.3 % (11.7-14.4)
[2019-08-31 12:42] LABS: ALBUMIN 3.1 g/dL (3.5-5.0); ALBUMIN/GLOBULIN RATIO 0.8 (0.8-2.0); ANION GAP 19.9 mmol/L (8-16); CALCIUM 7.2 mg/dL (8.4-10.2); CREATININE, SERUM 7.54 mg/dL (0.57-1.11); POTASSIUM 4.9 mmol/L (3.5-5.1)
[2019-08-31 12:52] LABS: CREATINE KINASE MB 5.6 ng/mL (0-5.0)
--- OUTSIDE RECORDS SUMMARY | 2019-08-31 13:46 | XMS REPORT | Continuity of Care Document ---
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 Role Phone [employer] Unavailable Un available Problems Problem Status Onset Date Classification Date Reported Comments Source Hypertension Active 07/04/2013 [facility] Diabetes Mellitus Active 07/04/2013 [facility] Atrial Fibrillation Active 07/04/2013 [facility] Adult Sleep Apnea Active 07/04/2013 [facility] Hypothyroidism Active 07/04/2013 [facility] Rheumatoid Arthritis Active 07/04/2013 [facility] Depression Chronic Active 07/04/2013 [facility] Restless Legs Syndrome Active 07/04/2013 [facility] Vertigo Active 07/04/2013 [facility] Medications Medication Details Route Status Patient Instructions Ordering Provider Order Date Source Levothyroxine Sodium 25 MCG Oral Tablet ; Start Date: 06/08/2013; End Date: (Active) Active 06/08/2013 [facility] HumaLOG 100 UNIT/ML Subcutaneous Solution ; Start Date: 06/08/2013; End Date: (Active) Active 06/08/2013 [facility] Meclizine HCl 12.5 MG Oral Tablet ; Start Date: 06/08/2013; End Date: (Active) Active 06/08/2013 [facility] BuPROPion HCl ER (XL) 300 MG Oral Tablet Extended Release 24 Hour ; Start Date: 05/25/2013; End Date: 07/28 (Active) Active 05/25/2013 [facility] BuPROPion HCl ER (XL) 300 MG Oral Tablet Extended Release 24 Hour ; Start Date: 05/25/2013; End Date: 07/28 (Active) Active 05/25/2013 [facility] Lantus 100 UNIT/ML Subcutaneous Solution ; Start Date: ; End Date: (Active) Inactive [facility] Pravastatin Sodium 40 MG Oral Tablet ; Start Date: ; End Date: (Active) Inactive [facility] Gabapentin 300 MG Oral Capsule ; Start Date: ; End Date: (Active) Inactive [facility] Hydroxychloroquine Sulfate 200 MG Oral Tablet ; Start Date: ; End Date: (Active) Inactive [facility] Pravastatin Sodium 40 MG Oral Tablet (Active) Active [facility] Amiodarone HCl 200 MG Oral Tablet (Active) Active [facility] Hydroxychloroquine Sulfate 200 MG Oral Tablet (Active) Active [facility] Warfarin Sodium 5 MG Oral Tablet (Active) Active [facility] Furosemide 80 MG Oral Tablet (Active) Active [facility] BuPROPion HCl TABS (Active) Active [facility] Gabapentin 300 MG Oral Capsule (Active) Active [facility] Lantus 100 UNIT/ML Subcutaneous Solution (Active) Active [facility] Renvela 800 MG Oral Tablet (A ctive) Active [facility] Calcium 600 MG Oral Tablet (A ctive) Active [facility] Thyroid TABS (Active) Active [facility] Aspirin 81 MG Oral Tablet (Ac tive) Active [facility] [place] Thyroid TABS (Active) Active [facility] Allergies, Adverse Reactions, Alerts Substance Category Reaction Severity Reaction type Status Date Reported Comments Source Penicillins drug allergy drug allergy Active [facility] Immunizations No Data Provided for This [...] ADM Date DC Date Status Source AUDIT [id number] 05/26/2013 05/26/2013 [facility] AUDIT [id number] 05/31/2013 05/31/2013 [facility] AUDIT [id number] 06/01/2013 06/01/2013 [facility] AUDIT [id number] 06/06/2013 06/06/2013 [facility] AUDIT [id number] 06/08/2013 06/08/2013 [facility] AUDIT [id number] 07/04/2013 07/04/2013 [facility] Shante SILVA monique: JEFF VALLEJO, Status: Pen, Time: 11:15 AM [id number] 07/05/19 14 07/04/2013 [facility] Shante SILVA monique: [email or web address], Status: Pen, Time: 9:15 AM [id number] 07/21/19 14 07/04/2013 [facility] Procedures No Data Provided for This Section Assessment and Plan No Data Provided for This Section Plan of Care Plan of Care Date Source [QLH] TSH, 3RD GENERATION W/REFLEX TO FT 4 05/25/2013 Routine 07/04/2013 [facility] [QL] TSH, 3RD GENERATION W/REFLEX TO FT 4 05/25/2013 Routine 06/08/2013 [facility] [QL] TSH, 3RD GENERATION W/REFLEX TO FT 4 05/25/2013 Routine 06/06/2013 [facility] [QL] TSH, 3RD GENERATION W/REFLEX TO FT 4 05/25/2013 Routine 06/01/2013 [facility] [QLH] TSH, 3RD GENERATION W/REFLEX TO FT 4 05/25/2013 Routine 05/31/2013 [facility] [QL] TSH, 3RD GENERATION W/REFLEX TO FT 4 05/25/2013 Routine[QLH] T4, FREE 05/25/2013 Routine[QLH] HEMOGLOBIN A1c 05/25/2013 Routine[QLH] CBC (INCLUDES DIFF/PLT) 05/25/2013 Routine[Q] COMPREHENSIVE METABOLIC PANEL W/eGFR (REFL) 05/25/2013 Routine[Q] LIPID PANEL WITH REFLEX TO DIRECT LDL 05/25/2013 Routine 05/26/2013 [facility] Social History Social History Date Source Marital History - Currently (Active) No History of Current Every Day Smoker (Denied) Former Smoker (V15.82); (Active) No History of Alcohol Use (Denied) No History of Drug Use (Denied) Physical Disability: (Active) 07/04/2013 [facility] Family History Value Date S ource Family history of Diabetes Mellitus (V18 .0); (Active) Paternal history of Hypertension (V17.49); (Active) Maternal aunt's history of Colon Cancer (V16.0); (Active) Maternal history of Type 2 Diabetes Mellitus (Active) Paternal history of Type 2 Diabetes Mellitus (Active) 07/04/2013 [facility] Family history of Diabetes Mellitus (V18 .0); (Active) Paternal history of Hypertension (V17.49); (Active) Maternal aunt's history of Colon Cancer (V16.0); (Active) Maternal history of Type 2 Diabetes Mellitus (Active) Paternal history of Type 2 Diabetes Mellitus (Active) 06/08/2013 [facility] Family history of Diabetes Mellitus (V18 .0); (Active) Paternal history of Hypertension (V17.49); (Active) Maternal aunt's history of Colon Cancer (V16.0); (Active) Maternal history of Type 2 Diabetes Mellitus (Active) Paternal history of Type 2 Diabetes Mellitus (Active) 06/06/2013 [facility] Family history of Diabetes Mellitus (V18 .0); (Active) Paternal history of Hypertension (V17.49); (Active) Maternal aunt's history of Colon Cancer (V16.0); (Active) Maternal history of Type 2 Diabetes Mellitus (Active) Paternal history of Type 2 Diabetes Mellitus (Active) 06/01/2013 [facility] Family history of Diabetes Mellitus (V18 .0); (Active) Paternal history of Hypertension (V17.49); (Active) Maternal aunt's history of Colon Cancer (V16.0); (Active) Maternal history of Type 2 Diabetes Mellitus (Active) Paternal history of Type 2 Diabetes Mellitus (Active) 05/31/2013 [facility] Family history of Diabetes Mellitus (V18 .0); (Active) Paternal history of Hypertension (V17.49); (Active) Maternal aunt's history of Colon Cancer (V16.0); (Active) Maternal history of Type 2 Diabetes Mellitus (Active) Paternal history of Type 2 Diabetes Mellitus (Active) 05/26/2013 [facility] Advance Directives Order Name Results Value Date Source Advance Directives Advance Dir ectives No Advance Directives available. 07/04/2013 [facility] Advance Directives Advance Dir ectives No Advance Directives available. 06/08/2013 [facility] Advance Directives Advance Dir ectives No Advance Directives available. 06/06/2013 [facility] Advance Directives Advance Dir ectives No Advance Directives available. 06/01/2013 [facility] Advance Directives Advance Dir ectives No Advance Directives available. 05/31/2013 [facility] Advance Directives Advance Dir ectives No Advance Directives available. 05/26/2013 [facility] Functional Status No Data Provided for This Section
--- OUTSIDE RECORDS SUMMARY | 2019-08-31 13:49 | XMS REPORT | Continuity of Care Document ---
Author Author [facility] t Organization [facility] Address [address] [place] [address] Phone Unavailable Care Team Providers Care Voip Engineer Name Role Phone Gene RUSSELL PCP Andrew MARTINEZ Attphys Unavailable Melody LEI Attphys Unavailable Payers Payer Name Policy Type Policy Number Effective Date Expiration Date lucyce Medicare A & B [id number] 2011 00:00:00 [facility] Problems Condition Name Condition Details Condition Category Status Onset Date Resolution Date Last Treatment Date Treating Clinician Comments Source End stage renal failure on dialysis ESRD (end stage renal di sease) on dialysis Problem Active [facility] Hyperkalemia Hyperkalemia Problem Active [facility] Hypervolemia Volume overload Problem Active [facility] Weakness Weakness Problem Active [facility] Hypertension Hype rtension Active 07/04/2013 [facility] Problem Active 2013-07-04 14:19:12 [facility] Diabetes Mellitus Diab etes Mellitus Active 07/04/2013 [facility] Problem Active 2013-07-04 14:19:12 [facility] Atrial Fibrillation Atri al Fibrillation Active 07/04/2013 [facility] Problem Active 2013-07-04 14:19:12 [facility] Adult Sleep Apnea Adul t Sleep Apnea Active 07/04/2013 [facility] Problem Active 2013-07-04 14:19:12 [facility] Hypothyroidism Hypo thyroidism Active 07/04/2013 [facility] Problem Active 2013-07-04 14:19:12 [facility] Rheumatoid Arthritis Rheu matoid Arthritis Active 07/04/2013 [facility] Problem Active 2013-07-04 14:19:12 [facility] Depression Chronic Depr ession Chronic Active 07/04/2013 [facility] Problem Active 2013-07-04 14:19:12 [facility] Restless Legs Syndrome Rest less Legs Syndrome Active 07/04/2013 [facility] Problem Active 2013-07-04 14:19:12 [facility] Vertigo Vert igo Active 07/04/2013 [facility] Problem Active 2013-07-04 14:19:12 [facility] Allergies, Adverse Reactions, Alerts Allergy Name Allergy Type Status Severity Reaction(s) Onset Date Inacti ve Date Treating Clinician Comments Source Penicillins DA Active SV 2019-04-14 00:00:00 [facility] morphine DA Active [place] 2019-04-14 00:00:00 [facility] Penicillins DA Active U 2019-03-05 00:00:00 [facility] Penicillins DA Active U 2019-03-02 00:00:00 [facility] Penicillins DA Active SV 2018-11-14 00:00:00 [facility] morphine DA Active MO 2018-11-14 00:00:00 [facility] Penicillins DA Active SV 2018-09-14 00:00:00 [facility] morphine DA Active MO 2018-09-14 00:00:00 [facility] morphine DA Active MO 2018-09-07 00:00:00 [facility] Penicillins DA Active SV 2018-09-03 00:00:00 [facility] Penicillins DA Active SV 2018-08-25 00:00:00 [facility] Penicillins DA Active SV 2018-01-10 00:00:00 [facility] Penicillins DA Active SV 2017-11-19 00:00:00 [facility] Penicillin Allergy to Substance Active Mild 2009-02-21 00:00:00 [facility] Penicillins Penicillins Active [facility] Social History Social Habit Start Date Stop Date Quantity Comments Source Social History 2013-07-04 14:19:12 2013-07-04 14:19:12 [facility] Medications Ordered Medication Name Filled Medication Name Start Date Stop Da te Current Medication? Ordering Clinician Indication Dosage Frequency Signature (SIG) Comments Components Source Levothyroxine Sodium 25 Mcg Tablet Levothyroxine Sodium 25 M cg Tablet 2019-04-11 00:00:00 Yes Sandip Cheng Slitter Creaser Slotter Helper 25 Daily@06 [facility] Tramadol Hcl (Ultram 50MG*) 50 Mg Tab Tramadol Hcl (Ultram 5 0MG*) 50 Mg Tab 2019-04-11 00:00:00 Yes Sandip Cheng Slitter Creaser Slotter Helper 50 Every 6 Hours as needed for Mild Pain (1-3) Or Fever>100.8 [facility] Amiodarone HCl 200 MG Oral Tablet 2013-07-04 14:19:12 Yes (Active) [facility] Warfarin Sodium 5 MG Oral Tablet 2013-07-04 14:19:12 Yes (Active) [facility] Furosemide 80 MG Oral Tablet 2013-07-04 14:19:12 Yes (Active) [facility] Renvela 800 MG Oral Tablet 2013-07-04 14:19:12 Yes (Active) [facility] Calcium 600 MG Oral Tablet 2013-07-04 14:19:12 Yes (Active) [facility] Aspirin 81 MG Oral Tablet 2013-07-04 14:19:12 Yes (Active) [facility] [place] Thyroid TABS 2013-06-08 15:02:07 Yes (Active) [facility] Levothyroxine Sodium 25 MCG Oral Tablet 2013-06-08 05:00:00 Yes ; Start Date: 06/08/2013; End Date: (Active) [facility] HumaLOG 100 UNIT/ML Subcutaneous Solution 2013-06-08 05:00:00 Yes ; Start Date: 06/08/2013; End Date: (Active) [facility] Meclizine HCl 12.5 MG Oral Tablet 2013-06-08 05:00:00 Yes ; Start Date: 06/08/2013; End Date: (Active) [facility] Pravastatin Sodium 40 MG Oral Tablet 2013-06-06 13:47:48 Ye s (Active) [facility] Hydroxychloroquine Sulfate 200 MG Oral Tablet 2013-06-06 13:47:4 8 Yes (Active) [facility] Gabapentin 300 MG Oral Capsule 2013-06-06 13:47:48 Yes (Active) [facility] Thyroid TABS 2013-06-06 13:47:48 Yes (Activ e) [facility] BuPROPion HCl TABS 2013-06-01 17:06:21 Yes (Active) [facility] Lantus 100 UNIT/ML Subcutaneous Solution 2013-05-31 20:03:28 Yes (Active) [facility] BuPROPion HCl ER (XL) 300 MG Oral Tablet Extended Release 24 Hour 2013-05-25 06:00:00 Yes ; Start Date: 4; End Date: 08/23/2013 (Active) [facility] BuPROPion HCl ER (XL) 300 MG Oral Tablet Extended Release 24 Hour 2013-05-25 06:00:00 Yes ; Start Date: 4; End Date: 08/23/2013 (Active) [facility] Lantus 100 UNIT/ML Subcutaneous Solution Yes ; Start Date: ; End Date: (Active) [facility] Pravastatin Sodium 40 MG Oral Tablet Ye s ; Start Date: ; End Date: (Active) [facility] Gabapentin 300 MG Oral Capsule Yes ; Start Date: ; End Date: (Active) [facility] Hydroxychloroquine Sulfate 200 MG Oral Tablet 06:00:0 0 Yes ; Start Date: ; End Date: (Active) [facility] Amiodarone Hcl 200 Mg Tablet Amiodarone Hcl 200 Mg Tablet Y es 100 Daily [facility] Bupropion Hcl (Bupropion Xl) 150 Mg Tab.er.24h Bupropi on Hcl (Bupropion Xl) 150 Mg Tab.er.24h Yes 300 Daily [facility] Ezetimibe (Zetia) 10 Mg Tablet Ezetimibe (Zetia) 10 Mg Tablet Yes 10 Daily [facility] Furosemide (Lasix) 80 Mg Tablet Furosemide (Lasix) 80 Mg Tablet Yes Daily [facility] Gabapentin 300 Mg Capsule Gabapentin 300 Mg Capsule Yes 300 Twice A Day [facility] Insulin Glargine (Lantus) 100 Units/Ml Ml Insulin Glar gine (Lantus) 100 Units/Ml Ml Yes 45 Bedtime [facility] Insulin Lispro (Humalog) 100 Unit/1 Ml Cartridge Insul in Lispro (Humalog) 100 Unit/1 Ml Cartridge Yes 12 Three Times A Day [facility] Levothyroxine Sodium 50 Mcg Tablet Levothyroxine Sodium 50 Mcg Tablet Yes 25 Daily [facility] Lorazepam 0.5 Mg Tablet Lorazepam 0.5 Mg Tablet Yes .5 Twice A Day [facility] Meclizine Hcl 12.5 Mg Tablet Meclizine Hcl 12.5 Mg Tablet Y es 25 Three Times A Day as needed for Prn [facility] Pravastatin Sodium 40 Mg Tablet Pravastatin Sodium 40 Mg Tablet Yes Bedtime [facility] Rotigotine (Neupro) 1 Each Patch.td24 Rotigotine (Neupro) 1 Each Pa tch.td24 Yes 4 Daily [facility] Sevelamer Hcl (Renvela) 800 Mg Tab Sevelamer Hcl (Renvela) 800 Mg Tab Yes Three Tabs Withmeal [facility] Tramadol Hcl (Ultram) 50 Mg Tablet Tramadol Hcl (Ultram) 50 Mg Tablet Yes 50 Every 6 Hours [facility] Warfarin Sodium 3 Mg Tablet Warfarin Sodium 3 Mg Tablet Yes 6 Daily [facility] Cefdinir (Omnicef) 300 Mg Capsule, 300 Mg Oral Cefdini r (Omnicef) 300 Mg Capsule, 300 Mg Oral 2019-04-11 00:00:00 No 300 Queenie ry Other Day [facility] Amlodipine Besylate (Norvasc) 5 Mg Tab, Amlodipine Besylate (Norvasc) 5 Mg Tab, 2016-01-25 00:00:00 No Daily [facility] Bupropion Hcl (Buproban) 150 Mg Tablet.er, Bupropion H cl (Buproban) 150 Mg Tablet.er, 2016-01-25 00:00:00 No Daily [facility] Citalopram Hydrobromide (Celexa) 20 Mg Tablet, Citalop tonya Hydrobromide (Celexa) 20 Mg Tablet, 2016-01-25 00:00:00 No Two Tabs D aily [facility] Gabapentin (Neurontin) 300 Mg Capsule, Gabapentin (Neurontin) 30 0 Mg Capsule, 2016-01-25 00:00:00 No Bedtime [facility] Hydroxychloroquine Sulfate 200 Mg Tablet, Hydroxychlor oquine Sulfate 200 Mg Tablet, 2016-01-25 00:00:00 No Daily [facility] Procedures This patient has no known procedures. Plan of Care Planned Activity Planned Date Details Comments Source Future Scheduled Test Plan of Care [code = 03854-4] [facility] Future Scheduled Test Plan of Care [code = 97072-0] [facility] Future Scheduled Test Plan of Care [code = 94501-0] [facility] Future Scheduled Test Plan of Care [code = 10153-8] [facility] Future Scheduled Test Plan of Care [code = 71043-3] [facility] Future Scheduled Test Plan of Care [code = 33858-2] [facility] Encounters Start Date/Time End Date/Time Encounter Type Admission Type Attendi [facility] Facility Care Department Encounter ID Source 2019-04-09 13:37:00 2019-04-11 12:22:00 Discharged Inpatient (obs) 1 DANA LEI [facility] [id number] [facility] 2019-04-06 12:09:00 2019-04-06 15:37:00 Departed Emergency Room [facility] [id number] [facility] 2013-07-20 09:15:00 2013-07-04 14:19:12 EGV, Provider: Abdiel VALLEJO, Status: Pen, Time: 9:15 AM [facility] [id number] [facility] 2013-07-04 11:15:00 2013-07-04 14:19:12 EGV, Provider: Abdiel VALLEJO, Status: Emeterio, Time: 11:15 AM [facility] [id number] [facility] 2013-07-04 09:19:13 2013-07-04 14:19:12 AUDIT [facility] [id number] [facility] 2013-07-04 09:19:13 2013-07-04 09:19:12 Outpatient MHIEA LT MHIEALT [id number] 2013-06-08 10:02:07 2013-06-08 15:02:07 AUDIT [facility]IEALT [facility] [id number] [facility] 2013-06-08 10:02:07 2013-06-08 10:02:07 Outpatient MHIEA LT [facility]IEALT [id number] 2013-06-06 08:47:49 2013-06-06 13:47:48 AUDIT MHIEALT [facility]ALT [id number] [facility] 2013-06-06 08:47:49 2013-06-06 08:47:48 Outpatient MHIEA LT [facility]IEALT [id number] 2013-06-01 11:06:22 2013-06-01 17:06:21 AUDIT [facility]IE[facility] [id number] [facility] 2013-06-01 11:06:22 2013-06-01 11:06:21 Outpatient MHIEA LT MHIEALT [id number] 2013-05-31 14:03:28 2013-05-31 20:03:28 AUDIT [facility]IE[facility] [id number] [facility] 2013-05-31 14:03:28 2013-05-31 14:03:28 Outpatient MHIEA LT MHIEALT [id number] 2013-05-26 11:21:12 2013-05-26 17:21:12 AUDIT MHIEALT [facility]ALT [id number] [facility] 2013-05-26 11:21:12 2013-05-26 11:21:12 Outpatient MHIEA LT [facility]IEALT [id number] Results Test Description Test Time Test Comments Results Result Comments Source CT BRAIN WO 2019-08-31 11:36:00 [place] [address] Patient Name: ERIN SCHILLING MR #: [id number] : 1950 Age/Sex: 68/F Req #: [id number] Adm Physician: Ordered by: BULL MARTINEZ DO Report #: [id number] Location: ER Room/Bed: Procedure: [id number] CT/CT BRAIN WO Exam Date: 08/31/19 Exam Time: 1129 REPORT STATUS: Signed Examination: CT head without contrast Clinical Indication: Weakness. Technique: Transaxial noncontrast images from the skull base through the vertex were obtained. Sagittal and coronal reformatted images were done. Dose modulation, iterative reconstruction, and/or weight based adjustment of the mA/kV was utilized to reduce the radiation dose to as low as reasonably achievable. Comparison: None. Findings: Scalp: No abnormalities. Bones: Intact. No fractures. No blastic or lytic lesions. Brain sulci: Generalized volume loss for patient's age. Ventricles: No hydrocephalus. . Extra-axial space: No abnormalities. Parenchyma: There are patchy areas of low-attenuation within subcortical and periventricular white matter, nonspecific, but could represent microvascular ischemic disease. No masses, hemorrhage, or acute or chronic cortical based vascular insults. Suprasellar region: No abnormalities. Craniocervical junction: The foramen magnum is patent. No Chiari one malformation. Incidental findings: Atherosclerotic calcification of the cavernous and supraclinoid internal carotid and V4 segments of the bilateral vertebral arteries. Impression: 1. No acute intracranial finding. 2. C hronic microvascular ischemic change and volume loss. Signed by: Dr. Terri Aldridge M.D. on 08/31/2019 12:04 PM Dictated By: TERRI MCKEON MD 03 Transcribed By: JUANIS on 08/31/191203 COPY TO: BULL MARTINEZ DO PROTHROMBIN TIME 2019-05-30 16:51:00 Test Item PROTHROMBIN [...] fibrillation Mechanical prosthetic heart valves (2.5-3.5) PROTHROMBIN [id number] 13:24:00* Test Item Value Reference Range Interpretation [...] Atrial fibrillation Mechanical prosthetic heart valves (2.5-3.5) [id number] 17:13:00* Test Item Value Reference Range Interpretation Comments GLUBED (test code = GLUBED) 116 mg/dL 74-106 H Performed by certified tucking machine operator at [facility] [id number] 11:27:00* Test Item Value Reference Range Interpretation Comments GLUBED (test code = GLUBED) 118 mg/dL 74-106 H Performed by certified tucking machine operator at [facility] PROTHROMBIN [id number] 07:39:00* Test Item Value Reference Range Interpretation [...] (2.5-3.5) IS PATIENT ON ANTICOAGULANTS? YLIST ANTICOAGULANTS [id number] 06:12:00* Test Item Value Reference Range Interpretation Comments GLUBED (test code = GLUBED) 116 mg/dL 74-106 H Performed by certified tucking machine operator at [facility] [id number] 21:45:00* Test Item Value Reference Range Interpretation Comments GLUBED (test code = GLUBED) 185 mg/dL 74-106 H Performed by certified tucking machine operator at [facility] [id number] 21:21:00* Test Item Value Reference Range Interpretation Comments GLUBED (test code = GLUBED) 137 mg/dL 74-106 H Performed by certified tucking machine operator at [facility] [id number] 14:05:00* Test Item Value Reference Range Interpretation Comments GLYCOSYLATED HEMOGLOBIN (HA1C) (test code = GLYHGB) 7.5 % HbA1 SUGGESTED DIAGNOSIS: HbA1C (%) Diabetic >6.4Prediabetes 5.7 - 6.4Normal <5.7 ESTIMATED AVERAGE GLUCOSE (test code = EAG) 169 MG/DL T4 [id number] 14:05:00* Test Item Value Reference Range Interpretation Comments T4 FREE (test code = T4F) 1.31 ng/dL 0.76-1.46 N THYROID STIMULATING [id number] 14:05:00* Test Item Value Reference Range Interpretation Comments THYROID STIMULATING HORMONE (test code = TSH) 3.730 uIU/mL 0.36-3.7 4 N TSH REFERENCE RANGES: EUTHYROID: 0.35 - 4.3 mIU/mL HYPO : > 5.5 mIU/mL HYPER : < 0.35 mIU/mL BASIC METABOLIC [id number] 10:24:00* Test Item Value Reference Range Interpretation [...] CA) 7.7 mg/dL 8.5-10.1 L BASIC METABOLIC [id number] 10:20:00* Test Item Value Reference Range Interpretation [...] CA) 7.7 mg/dL 8.5-10.1 L CBC W/AUTO [id number] 10:11:00* Test Item Value Reference Range Interpretation [...] = NRBC#) 0.00 K/mm3 0.0-0.1 N CPK-MB [id number] 09:13:00* Test Item Value Reference Range Interpretation [...] valid with a normal total CK. PROTHROMBIN [id number] 09:05:00* Test Item Value Reference Range Interpretation [...] (test code = TROPI) 0.345 ng/mL 0-0.045 Results called to [id number] by [email or web address] 04/26/19 1645Critical results verified and read back by Nurse? Y COMMENTS TO CONTROL SYSTEMS TECHNICIAN: COLLECT 3 HOURS AFTER PREVIOUS [id number] 14:06:00* Test Item Value Reference Range Interpretation Comments TROPONIN-I (test code = TROPI) 0.354 ng/mL 0-0.045 Results called to [id number] by [facility] 04/26/19 1355Critical results verified and read back by Nurse?Y COMMENTS TO CONTROL SYSTEMS TECHNICIAN: COLLECT 3 HOURS AFTER PREVIOUS SAMPLEPROTHROMBIN [id number] 13:47:00* Test Item Value Reference Range Interpretation [...] (2.5-3.5) IS PATIENT ON ANTICOAGULANTS? YLIST ANTICOAGULANTS [id number] 11:49:00* Test Item Value Reference Range Interpretation Comments GLUBED (test code = GLUBED) 131 mg/dL 74-106 H Performed by certified tucking machine operator at [facility] AG HEPAT B [id number] 08:31:00* Test Item Value Reference Range Interpretation Comments AG HEPAT B SURF (test code = HBSAG) Nonreactive Index Nonreactive [id number] 05:38:00* Test Item Value Reference Range Interpretation Comments MAGNESIUM (test code = MAG) 2.3 mg/dL 1.8-2.4 N THYROID PROFILE [id number] 05:38:00* Test Item Value Reference Range Interpretation [...] HYPER : < 0.35 mIU/mL BASIC METABOLIC [id number] 05:10:00* Test Item Value Reference Range Interpretation [...] code = CA) 7.8 mg/dL 8.5-10.1 L [id number] 05:10:00* Test Item Value Reference Range Interpretation Comments TROPONIN-I (test code = TROPI) 0.017 ng/mL 0-0.045 N CBC W/O [id number] 05:10:00* Test Item Value Reference Range Interpretation [...] code = MPV) 10.7 fL 6.7-11.0 N [id number] 05:05:00* Test Item Value Reference Range Interpretation Comments MAGNESIUM (test code = MAG) 2.3 mg/dL 1.8-2.4 N THYROID PROFILE [id number] 05:05:00* Test Item Value Reference Range Interpretation Comments T3 UPTAKE (test code = T3UP) % 30.0-40.0 T4 (THYROXINE) (test code = T4) ug/dL 4.5-13.9 T7 (FREE THYROXINE INDEX) (test code = T7) FTI 1.3-5.1 THYROID STIMULATING HORMONE (test code = TSH) uIU/mL 0.36-3.7 4 BASIC METABOLIC [id number] 05:01:00* Test Item Value Reference Range Interpretation [...] CALCIUM (test code = CA) mg/dL 8.5-10.1 [id number] 05:01:00* Test Item Value Reference Range Interpretation Comments TROPONIN-I (test code = TROPI) ng/mL 0-0.045 TROPONIN I [id number] 04:50:00* Test Item Value Reference Range Interpretation [...] similarmethodology is used. - XR CHEST 1 [id number] 04:26:00 FAX: Mich Smith MD [place]: St: [facility] FAX: Jean Carlos Rosario MD [phone] Name: ERIN SCHILLING [facility] : 1950 Age/S: 68/F [address] [facility] Unit #: [id number] Loc: [place] [address] Phys: Mich Smith MD Acct: [id number] Dis Date: Status: REG ER PHONE #: [phone] Exam Date: 04/26/2019 0423 FAX #: [phone] Reason: CHEST PAIN EXAMS: CPT CODE: [id number] XR CHEST 1 V 74258 Dictation location: [facility]. CHEST, FRONTAL VIEW HISTORY: CHEST PAIN [...] By: [email or web address] Orig Print D/T: S: 04/26/2019 (0426) PAGE 1 Signed Report PROTHROMBIN [id number] 18:16:00* Test Item Value Reference Range Interpretation [...] heart valves (2.5-3.5) - CT HEAD/BRAIN W/O [id number] 14:27:00 Name: ERIN SCHILLING [facility] : 1950 Age/S: 68 / F [address] [facility] Unit #: [id number] Loc: [place] [address] Phys: Blaise Campbell MD Acct: [id number] Dis Date: Status: REG ER PHONE #: [phone] Exam Date: 04/14/2019 135 FAX #: [phone] Reason: vertigo EXAMS: CPT CODE: [id number] CT HEAD/BRAIN W/O CONT 39982 HISTORY: Vertigo. COMPARISON: Head CT from March 05, 2019 CT brain without contrast: Automated exposure control. Location: [facility]. No acute intracranial bleeds or extra-axial collections are noted. No acute territorial vascular infarction is noted. The sulci, gyri, vent ricles and subarachnoid spaces and the basilar cisterns are normal for pat ient's age. No herniation or hydrocephalus or midline [...] RT(R),(MR ),(CT) CTDI: DLP: Trnscb Date/Time: 04/14/2019 (8931) t.SDR.TH4 Orig Print D/T: S: 04/14/2019 (4501) PAGE 1 Signed Report [id number] 13:58:00* Test Item Value Reference Range Interpretation Comments ACETAMINOPHEN (test code = ACET) < 10 mcg/mL 10-30 L A RANGE OF 10-30 mcg/mL IS A THERAPEUTIC RANGE. TOXIC CONCENTRATIONS: >150 mcg/mL AT 4 HOURS AFTER INGESTION >= 50 mcg/mL AT 12 HOURS AFTER INGESTION [id number] 13:58:00* Test Item Value Reference Range Interpretation Comments SALICYLATE (test code = LETY) < 1.7 mg/dL 2.8-20.0 L BASIC METABOLIC [id number] 13:57:00* Test Item Value Reference Range Interpretation [...] CA) 9.4 mg/dL 8.5-10.1 N HEPATIC FUNCTION [id number] 13:57:00* Test Item Value Reference Range Interpretation [...] reference range due to change in reagent. [id number] 13:57:00* Test Item Value Reference Range Interpretation Comments MAGNESIUM (test code = MAG) 2.3 mg/dL 1.8-2.4 N [id number] 13:57:00* Test Item Value Reference Range Interpretation Comments ALCOHOL (test code = ALC) 7 mg/dL 0.0-3.0 H -- INTERPRETIVE DATA NOTE: POSITIVE SCREENING RESULTS SHOULD BE CONSIDERED PRESUMPTIVE.WHEN COLLECTED FOR MEDICAL PURPOSES ONLY. SPECIMEN WILL NOTBE COLLECTED BY CHAIN OF CUSTODY.IF A CONFIRMATION OF POSITIVE RESULTS IS DESIRED, ACONFIRMATION TEST MUST BE REQUESTED BY THE PHYSICIAN AT ANADDITIONAL CHARGE TO THE PATIENT. PROTHROMBIN [id number] 13:31:00* Test Item Value Reference Range Interpretation [...] (2.5-3.5) IS PATIENT ON ANTICOAGULANTS? NTHROMBOPLASTIN TIME [id number] 13:31:00* Test Item Value Reference Range Interpretation Comments THROMBOPLASTIN TIME PARTIAL (test code = PTT) 40.5 seconds 25.0-36. 5 H IS PATIENT ON ANTICOAGULANTS? NCBC W/O [id number] 13:29:00* Test Item Value Reference Range Interpretation [...] = MPV) 9.4 fL 6.7-11.0 N Bedside [id number] 07:15:00* Test Item Value Reference Range Interpretation Comments Bedside Glucose (test code = 60059-7) 132 70-120 H Meter ID: [id number] [facility] 2019-04-10 14:51:00* Test Item Value Reference Range Interpretation Comments Creatine Kinase MB (test code = 81112-9) 2.20 0-5.0 [facility] [id number] 14:51:00* Test Item Value Reference Range Interpretation Comments Troponin I (test code = FRG1394) 0.010 0-0.300 [facility] [id number] 14:32:00* Test Item Value Reference Range Interpretation Comments Creatine Kinase (test code = 2157-6) 29 29-168 [facility] Hospital[facility]yroid Stimulating Hormone (TSH) 2019-04-10 14:08:00* Test Item Value Reference Range Interpretation Comments Thyroid Stimulating Hormone (TSH) (test code = 34070-4) 2.942 0.350-4.940 [facility] [id number] 05:59:00* Test Item Value Reference Range Interpretation Comments Sodium Level (test code = 2951-2) 134 136-145 L [facility] [id number] 05:59:00* Test Item Value Reference Range Interpretation Comments Potassium Level (test code = 2823-3) 5.3 3.5-5.1 H [facility] Hospital[facility]ide [id number] 05:59:00* Test Item Value Reference Range Interpretation Comments Chloride Level (test code = 2075-0) 91 98-107 L [facility] Hospital[facility]bon Dioxide [id number] 05:59:00* Test Item Value Reference Range Interpretation Comments Carbon Dioxide Level (test code = 2028-9) 31 22-29 H [facility] HospitalAnion [id number] 05:59:00* Test Item Value Reference Range Interpretation Comments Anion Gap (test code = 52200-4) 17.3 8-16 H [facility] Hospital[facility] Urea [id number] 05:59:00* Test Item Value Reference Range Interpretation Comments Blood Urea Nitrogen (test code = 3094-0) 34 7-26 H [facility] HospitalCreatinine2020-01-13 05:59:00* Test Item Value Reference Range Interpretation Comments Creatinine (test code = 2160-0) 4.44 0.57-1.11 H [facility]/Creatinine [id number] 05:59:00* Test Item Value Reference Range Interpretation Comments BUN/Creatinine Ratio (test code = 3097-3) 8 6-25 [facility] Hospital[facility]at Glomerular Filtration Rate 2019-04-10 05:59:00* Test Item Value Reference Range Interpretation Comments Estimat Glomerular Filtration Rate (test code = 148341136) 10 >60 L Ranges were taken from the National Kidney Disease Education Program and the [facility] [employer] literature.Reference ranges:60 or greater: Gpbbnq17-01 ( for 3 consecutive months): Chronic kidney disease 15 or less: Kidney failureCovenant Children's HospitalGlucose Pglyv8586-96-04 05:59:00* Test Item Value Reference Range Interpretation Comments Glucose Level (test code = REJ2978) 222 74-118 H [facility] HospitalCalcium Gnwtw4583-67-80 05:59:00* Test Item Value Reference Range Interpretation Comments Calcium Level (test code = 28605-9) 8.6 8.4-10.2 [facility] HospitalTotal Fsnicenbq6172-11-27 05:59:00* Test Item Value Reference Range Interpretation Comments Total Bilirubin (test code = 1975-2) 0.6 0.2-1.2 [facility] HospitalAspartate Amino Transf (AST/SGOT) 2019-04-10 05:59:00* Test Item Value Reference Range Interpretation Comments Aspartate Amino Transf (AST/SGOT) (test code = Aspartate Amino Transf (AST/SGOT)) 15 5-34 [facility] HospitalAlanine Aminotransferase (ALT/SGPT) 2019-04-10 05:59:00* Test Item Value Reference Range Interpretation Comments Alanine Aminotransferase (ALT/SGPT) (test code = 1742-6) 16 0-55 [facility] HospitalTotal Npjigna3672-29-02 05:59:00* Test Item Value Reference Range Interpretation Comments Total Protein (test code = 2885-2) 7.4 6.5-8.1 [facility] HospitalAlbumin2020-01-13 05:59:00* Test Item Value Reference Range Interpretation Comments Albumin (test code = 1751-7) 3.3 3.5-5.0 L [facility] HospitalGlobulin2020-01-13 05:59:00* Test Item Value Reference Range Interpretation Comments Globulin (test code = 80411-0) 4.1 2.3-3.5 H [facility] HospitalAlbumin/Globulin Ujtql0372-72-69 05:59:00 * Test Item Value Reference Range Interpretation Comments Albumin/Globulin Ratio (test code = 1759-0) 0.8 0.8-2.0 [facility] HospitalAlkaline Qeffqhixrdl4446-03-43 05:59:00* Test Item Value Reference Range Interpretation Comments Alkaline Phosphatase (test code = 6768-6) 147 40-150 [facility] HospitalTriglycerides Jcswp9374-20-60 05:59:00* Test Item Value Reference Range Interpretation Comments Triglycerides Level (test code = 2571-8) 78 0-149 [facility] HospitalCholesterol Jrsrg9300-58-31 05:59:00* Test Item Value Reference Range Interpretation Comments Cholesterol Level (test code = 2093-3) 157 0-199 Less than 200 mg/dL Low Uglo300 - 239 mg/dL Borderline Pixz191 m g/dl and greater High Risk [facility] HospitalLDL Xcexoisnjmu5938-56-07 05:59:00* Test Item Value Reference Range Interpretation Comments LDL Cholesterol (test code = 2089-1) 69 60-130 [facility] HospitalHDL Lwxabsglenu3907-16-52 05:59:00* Test Item Value Reference Range Interpretation Comments HDL Cholesterol (test code = 2085-9) 72 40-60 H [facility] HospitalCholesterol/HDL Vnfwk8334-86-13 05:59:00 * Test Item Value Reference Range Interpretation Comments Cholesterol/HDL Ratio (test code = 9830-1) 2.2 3.0-3.6 L [facility] HospitalWhite Blood Njezx9589-12-46 05:51:00* Test Item Value Reference Range Interpretation Comments White Blood Count (test code = 6690-2) 5.37 4.8-10.8 [facility] HospitalRed Blood Xsmza2917-52-43 05:51:00* Test Item Value Reference Range Interpretation Comments Red Blood Count (test code = 789-8) 4.35 3.6-5.1 [facility] HospitalHemoglobin2020-01-13 05:51:00* Test Item Value Reference Range Interpretation Comments Hemoglobin (test code = 64121-2) 11.3 12.0-16.0 L [facility] HospitalHematocrit2020-01-13 05:51:00* Test Item Value Reference Range Interpretation Comments Hematocrit (test code = 4544-3) 37.5 34.2-44.1 [facility] HospitalMean Corpuscular Wytmqd7663-29-20 05:51:00* Test Item Value Reference Range Interpretation Comments Mean Corpuscular Volume (test code = 787-2) 86.2 81-99 [facility] HospitalMean Corpuscular Jzhphuatsw4744-60-77 05:51:00* Test Item Value Reference Range Interpretation Comments Mean Corpuscular Hemoglobin (test code = 785-6) 26.0 28-32 L [facility] HospitalMean Corpuscular Hemoglobin Concent 2019-04-10 05:51:00* Test Item Value Reference Range Interpretation Comments Mean Corpuscular Hemoglobin Concent (test code = 786-4) 30.1 31-35 L [facility] HospitalRed Cell Distribution Ikrqe6189-33-18 05:51:00* Test Item Value Reference Range Interpretation Comments Red Cell Distribution Width (test code = 43717-8) 19.9 11.7 -14.4 H [facility] HospitalPlatelet Rcjwh4768-67-47 05:51:00* Test Item Value Reference Range Interpretation Comments Platelet Count (test code = 777-3) 106 140-360 L [facility] HospitalNeutrophils (%) (Auto)2019-04-10 05:51:00 * Test Item Value Reference Range Interpretation Comments Neutrophils (%) (Auto) (test code = 83709-8) 72.5 38.7-80.0 [facility] HospitalLymphocytes (%) (Auto)2019-04-10 05:51:00 * Test Item Value Reference Range Interpretation Comments Lymphocytes (%) (Auto) (test code = 736-9) 15.8 18.0-39.1 L [facility] HospitalMonocytes (%) (Auto)2019-04-10 05:51:00* Test Item Value Reference Range Interpretation Comments Monocytes (%) (Auto) (test code = 5905-5) 7.8 4.4-11.3 [facility] HospitalEosinophils (%) (Auto)2019-04-10 05:51:00 * Test Item Value Reference Range Interpretation Comments Eosinophils (%) (Auto) (test code = 713-8) 2.8 0.0-6.0 [facility] HospitalBasophils (%) (Auto)2019-04-10 05:51:00* Test Item Value Reference Range Interpretation Comments Basophils (%) (Auto) (test code = 706-2) 0.9 0.0-1.0 [facility] HospitalIM GRANULOCYTES %2019-04-10 05:51:00* Test Item Value Reference Range Interpretation Comments IM GRANULOCYTES % (test code = IM GRANULOCYTES %) 0.2 0.0- 1.0 [facility] HospitalNeutrophils # (Auto)2019-04-10 05:51:00* Test Item Value Reference Range Interpretation Comments Neutrophils # (Auto) (test code = 751-8) 3.9 2.1-6.9 [facility] HospitalLymphocytes # (Auto)2019-04-10 05:51:00* Test Item Value Reference Range Interpretation Comments Lymphocytes # (Auto) (test code = 87138-6) 0.9 1.0-3.2 L [facility] HospitalMonocytes # (Auto)2019-04-10 05:51:00* Test Item Value Reference Range Interpretation Comments Monocytes # (Auto) (test code = 742-7) 0.4 0.2-0.8 [facility] HospitalEosinophils # (Auto)2019-04-10 05:51:00* Test Item Value Reference Range Interpretation Comments Eosinophils # (Auto) (test code = 711-2) 0.2 0.0-0.4 [facility] HospitalBasophils # (Auto)2019-04-10 05:51:00* Test Item Value Reference Range Interpretation Comments Basophils # (Auto) (test code = 704-7) 0.1 0.0-0.1 [facility] HospitalAbsolute Immature Granulocyte (auto 2019-04-10 05:51:00* Test Item Value Reference Range Interpretation Comments Absolute Immature Granulocyte (auto (mary ann t code = Absolute Immature Granulocyte (auto) 0.01 0-0.1 [facility] HospitalHemoglobin A1c Fvvihuw6813-64-98 05:43:00 * Test Item Value Reference Range Interpretation Comments Hemoglobin A1c Percent (test code = Hemoglobin A1c Percent) 7.6 4.0-7.0 H [facility] HospitalProthrombin Alds3334-10-00 05:00:00* Test Item Value Reference Range Interpretation Comments Prothrombin Time (test code = 5902-2) 15.7 11.9-14.5 H [facility] HospitalProthromb Time International Ratio 2019-04-10 05:00:00* Test Item Value Reference Range Interpretation Comments Prothromb Time International Ratio (test code = 6301-6) 1.19 Oral Anticoagulant Therapy INR Values:1. Low Intensity Therapy 1.5 - 2.02 . Moderate Intensity Therapy 2.0 - 3.03. High Intensity Therapy(1) 2.5 - 3. 54. High Intensity Therapy(2) 3.0 - 4.05. Panic Value INR > 5.0 [facility] HospitalActivated Partial Thromboplast Time 2019-04-09 12:51:00* Test Item Value Reference Range Interpretation Comments Activated Partial Thromboplast Time (test code = 96434-7) 35.4 23.8-35.5 [facility] HospitalCHEST SINGLE (PORTABLE)2019-04-09 12:13:00 [place] [address] Patient Name: ERIN SCHILLING MR #: [id number] : 1950 Age/Sex: 68/F Req #: [id number] Adm Physician: Ordered by: CED LARKIN MOSQUITO SPRAYER Report #: [id number] Location: ER Room/Bed: Procedure: [id number] DX/ CHEST SINGLE (PORTABLE) Exam Date: 04/09/19 Exam Artie e: 1140 REPORT STATUS: Signed EX AMINATION: CHEST SINGLE (PORTABLE) COMPARISON: None INDICATION: B ilateral lung weakness, shortness of breath ERMD ORDER [id number] Y DISCUSSION: Frontal view of the [...] ROONEY MD 13 Transcribed By: JUANIS on 04/09/19 1214 COPY TO: CED LARKIN NP GLUBED 2019-03-31 12:17:00* Test Item Value Reference Range Interpretation Comments GLUBED (test code = GLUBED) 127 mg/dL 74-106 H Performed by certified tucking machine operator at [facility]2019-12-17 10:08:00* Test Item Value Reference Range Interpretation Comments GLUBED (test code = GLUBED) 249 mg/dL 74-106 H Performed by certified tucking machine operator at [facility] TQDWPO1669-75-67 10:06:00* Test Item Value Reference Range Interpretation Comments GLUBED (test code = GLUBED) 163 mg/dL 74-106 H Performed by certified tucking machine operator at [facility] OQMSTI0777-25-08 10:06:00* Test Item Value Reference Range Interpretation Comments GLUBED (test code = GLUBED) 170 mg/dL 74-106 H Performed by certified tucking machine operator at [facility] HGJDNX8103-23-51 16:17:00* Test Item Value Reference Range Interpretation Comments GLUBED (test code = GLUBED) 247 mg/dL 74-106 H Performed by certified tucking machine operator at [facility] DNOOMJ7568-80-19 11:42:00* Test Item Value Reference Range Interpretation Comments GLUBED (test code = GLUBED) 105 mg/dL 74-106 N Performed by certified tucking machine operator at [facility] WVQONO0663-20-30 07:02:00* Test Item Value Reference Range Interpretation Comments GLUBED (test code = GLUBED) 187 mg/dL 74-106 H [facility] certified tucking machine [facility] Rehabilitation[facility]ified Nurse~ BASIC METABOLIC RAOBA9548-18-21 06:08:00* Test Item Value Reference Range Interpretation [...] CA) 8.4 mg/dL 8.5-10.1 L BASIC METABOLIC FYYGL1597-81-46 05:36:00* Test Item Value Reference Range Interpretation [...] (test code = CA) mg/dL 8.5-10.1 PROTHROMBIN MEJU0949-85-92 05:28:00* Test Item Value Reference Range Interpretation [...] MPV) 9.6 fL 6.7-11.0 N CBC W/O AMBE2148-09-56 05:14:00* Test Item Value Reference Range Interpretation [...] VOLUME (test code = MPV) fL 6.7-11.0 XSYULW0795-20-35 22:06:00* Test Item Value Reference Range Interpretation Comments GLUBED (test code = GLUBED) 240 mg/dL 74-106 H [facility] certified tucking machine [facility]~ BYMOCS9917-81-71 17:03:00* Test Item Value Reference Range Interpretation Comments GLUBED (test code = GLUBED) 222 mg/dL 74-106 H Performed by certified tucking machine operator at [facility] BASIC METABOLIC QKTOL8855-45-21 08:44:00* Test Item Value Reference Range Interpretation [...] CA) 8.0 mg/dL 8.5-10.1 L BASIC METABOLIC HDXYR9644-58-35 08:26:00* Test Item Value Reference Range Interpretation [...] (test code = CA) mg/dL 8.5-10.1 PROTHROMBIN XZCL6837-26-29 08:11:00* Test Item Value Reference Range Interpretation [...] (2.5-3.5) IS PATIENT ON ANTICOAGULANTS? YLIST ANTICOAGULANTS GRPYYKSXNDLXJL1435-17-71 06:10:00* Test Item Value Reference Range Interpretation Comments GLUBED (test code = GLUBED) 239 mg/dL 74-106 H Performed by certified tucking machine operator at [facility] QRFEPR3194-82-10 20:13:00* Test Item Value Reference Range Interpretation Comments GLUBED (test code = GLUBED) 220 mg/dL 74-106 H Performed by certified tucking machine operator at [facility] NSJPJF7484-28-72 16:50:00* Test Item Value Reference Range Interpretation Comments GLUBED (test code = GLUBED) 266 mg/dL 74-106 H Performed by certified tucking machine operator at [facility] [id number] 16:50:00* Test Item Value Reference Range Interpretation Comments GLUBED (test code = GLUBED) 261 mg/dL 74-106 H Performed by certified tucking machine operator at [facility] BASIC METABOLIC EHNLR0422-68-49 12:24:00* Test Item Value Reference Range Interpretation [...] CA) 8.2 mg/dL 8.5-10.1 L BASIC METABOLIC TBOUE2243-04-75 12:16:00* Test Item Value Reference Range Interpretation [...] = CA) mg/dL 8.5-10.1 AB HEPATITIS B [id number] 06:09:00* Test Item Value Reference Range Interpretation Comments AB HEPATITIS B SURFACE (test code = HBSAB) Non Reactive () Non Reactive: Inconsistent with immunity, less than 10 mIU/mL Reactive: Consistent with immunity, greater than 9.9 mIU/mLPerformed At: [facility] [address] [id number] Mack MD [phone] HEPATITIS B CORE ANTIBODY,[id number] 06:09:00* Test Item Value Reference Range Interpretation Comments HEPATITIS B CORE ANTIBODY,TOT (test code = HBCAB) Negative Nega tive Performed At: [facility] [address] [id number] Mack MD Ph:[phone] WJAAOF5642-73-98 06:05:00* Test Item Value Reference Range Interpretation Comments GLUBED (test code = GLUBED) 181 mg/dL 74-106 H Performed by certified tucking machine operator at [facility] PROTHROMBIN IHOC8567-63-24 05:18:00* Test Item Value Reference Range Interpretation [...] PATIENT ON ANTICOAGULANTS? YLIST ANTICOAGULANTS COUMADINTHROMBOPLASTIN TIME OBTTAGZ0423-77-69 21:16:00* Test Item Value Reference Range Interpretation Comments THROMBOPLASTIN TIME PARTIAL (test code = PTT) 41.0 seconds 25.0-36. 5 H IS PATIENT ON ANTICOAGULANTS? YLIST ANTICOAGULANTS ZWDUSDUDSEORJZ9906-05-20 20:37:00* Test Item Value Reference Range Interpretation Comments GLUBED (test code = GLUBED) 227 mg/dL 74-106 H Performed by certified tucking machine operator at [facility] BASIC METABOLIC DINVE1437-36-54 07:55:00* Test Item Value Reference Range Interpretation [...] CA) 8.2 mg/dL 8.5-10.1 L CBC W/AUTO [id number] 07:26:00* Test Item Value Reference Range Interpretation [...] (test code = MDIFF) NO CBC W/AUTO [id number] 07:25:00* Test Item Value Reference Range Interpretation [...] # (test code = BA#) K/mm3 0.0-0.2 [id number]-N9096-80-09 01:40:00* Test Item Value Reference Range Interpretation Comments TROPONIN-I (test code = TROPI) <0.015 ng/mL 0-0.045 N COMMENTS TO CONTROL SYSTEMS TECHNICIAN: COLLECT 3 HOURS AFTER PREVIOUS [id number]-[id number] 01:23:00* Test Item Value Reference Range Interpretation Comments TROPONIN-I (test code = TROPI) <0.015 ng/mL 0-0.045 N COMMENTS TO CONTROL SYSTEMS TECHNICIAN: COLLECT 3 HOURS AFTER PREVIOUS [id number] 23:36:00* Test Item Value Reference Range Interpretation Comments GLUBED (test code = GLUBED) 231 mg/dL 74-106 H Performed by certified tucking machine operator at [facility] AG HEPAT B [id number] 21:37:00* Test Item Value Reference Range Interpretation Comments AG HEPAT B SURF (test code = HBSAG) Nonreactive Index Nonreactive BIQOCWMIH6797-09-19 21:20:00* Test Item Value Reference Range Interpretation Comments POTASSIUM (test code = K) 7.1 mmol/L 3.5-5.1 Re staceyts called to AQU3750 by V.[facility].AA 03/05/19 2119Critical results verified and read back by Nurse? Y BASIC METABOLIC [id number] 17:35:00* Test Item Value Reference Range Interpretation Comments SODIUM (test code = NA) 129 mmol/L 136-145 L POTASSIUM (test code = K) 8.3 mmol/L 3.5-5.1 Re charanjit called to Dr. Estevez by V.[facility].AA 03/05/19 [...] CA) 8.3 mg/dL 8.5-10.1 L HEPATIC FUNCTION [id number] 17:35:00* Test Item Value Reference Range Interpretation [...] reference range due to change in reagent. [id number]-[id number] 17:35:00* Test Item Value Reference Range Interpretation Comments TROPONIN-I (test code = TROPI) <0.015 ng/mL 0-0.045 N CBC W/AUTO [id number] 16:23:00* Test Item Value Reference Range Interpretation [...] = MDIFF) NO, ONLY SCAN NEEDED DIFFERENTIAL [id number] 16:23:00* Test Item Value Reference Range Interpretation Comments STAIN ACCEPTABILITY (test code = STN ACCEPTABLE) STAIN ACCEPTABLE HYPOCHROMIA (test code = HYPO) 1+ ANISOCYTOSIS (test code = ANISO) 2+ MACROCYTOSIS (test code = MACR) 1+ PLATELET ESTIMATE (test code = PLTEST) ADEQUATE PLATELET MORPHOLOGY (test code = PLTMORPH) NORMAL CBC W/AUTO [id number] 15:54:00* Test Item Value Reference Range Interpretation [...] = MDIFF) NO, ONLY SCAN NEEDED DIFFERENTIAL [id number] 15:54:00* Test Item Value Reference Range Interpretation Comments STAIN ACCEPTABILITY (test code = STN ACCEPTABLE) CABOT RINGS (test code = CAB) MORPHOLOGY COMMENT (test code = MOC) PLATELET ESTIMATE (test code = PLTEST) PLATELET MORPHOLOGY (test code = PLTMORPH) CBC W/AUTO [id number] 15:54:00* Test Item Value Reference Range Interpretation [...] = MDIFF) NO, ONLY SCAN NEEDED DIFFERENTIAL [id number] 15:54:00* Test Item Value Reference Range Interpretation Comments STAIN ACCEPTABILITY (test code = STN ACCEPTABLE) CABOT RINGS (test code = CAB) MORPHOLOGY COMMENT (test code = MOC) PLATELET ESTIMATE (test code = PLTEST) PLATELET MORPHOLOGY (test code = PLTMORPH) CBC W/AUTO [id number] 15:54:00* Test Item Value Reference Range Interpretation [...] = MDIFF) NO, ONLY SCAN NEEDED DIFFERENTIAL [id number] 15:54:00* Test Item Value Reference Range Interpretation Comments STAIN ACCEPTABILITY (test code = STN ACCEPTABLE) MORPHOLOGY COMMENT (test code = MOC) PLATELET ESTIMATE (test code = PLTEST) PLATELET MORPHOLOGY (test code = PLTMORPH) CBC W/AUTO [id number] 15:54:00* Test Item Value Reference Range Interpretation [...] = MDIFF) NO, ONLY SCAN NEEDED DIFFERENTIAL [id number] 15:54:00* Test Item Value Reference Range Interpretation Comments STAIN ACCEPTABILITY (test code = STN ACCEPTABLE) CABOT RINGS (test code = CAB) MORPHOLOGY COMMENT (test code = MOC) PLATELET ESTIMATE (test code = PLTEST) PLATELET MORPHOLOGY (test code = PLTMORPH) CBC W/AUTO [id number] 15:52:00* Test Item Value Reference Range Interpretation [...] BA#) K/mm3 0.0-0.2 - XR CHEST 1 [id number] 15:40:00 FAX: Phillip Estevez MD [phone] [place]: St: REG FAX: Y Jean Carlos Russell MD [phone] Name: ERIN SCHILLING [facility] : 1950 Age/S: 68/F [address] [facility] Unit #: [id number] Loc: [place] [address] Phys: Phillip Estevez MD Acct: [id number] Dis Date: Status: REG ER PHONE #: [phone] Exam Date: 03/05/2019 1518 FAX #: [phone] Reason: Altered Mental Status EXAMS: CPT CODE: [id number] XR CHEST 1 V 55349 REASON FOR EXAM: Altered Mental Status Exam [...] mild interstitial prominence suggesting mild edema. Location: [facility] at 1540 Reported and signed by: Jadiel Mijares MD CC: Phillip Estevez MD; Jean Carlos Russell MD Technologist: Yoana Kessler RT(R) Trnscrd Date/Time/By: 03/05/20 19 (2540) : By: [email or web address] Orig Print D/T: S: 03/05/2019 (6637) PAGE 1 Signed Report - XR CHEST 1 [id number] 15:40:00 FAX: Phillip Estevez MD [phone] [place]: St: [facility] FAX: Jean Carlos Rosario MD [phone] Name: ERIN SCHILLING [facility] : 1950 Age/S: 68/F [address] [facility] Unit #: [id number] Loc: V.[address] [place] [address] Phys: Phillip Estevez MD Acct: [id number] Dis Date: Status: ADM IN PHONE #: [phone] Exam Date: 03/05/2019 1518 FAX #: [phone] Reason: Altered Mental Status EXAMS: CPT CODE: [id number] XR CHEST 1 V 31715 REASON FOR EXAM: Altered Mental Status Exam [...] mild interstitial prominence suggesting mild edema. Location: [facility] at 1540 Reported and signed by: Jadiel Mijares MD CC: Phillip Estevez MD; Jean Carlos Russell MD Technologist: Yoana Kessler RT(R) Trnscrd Date/Time/By: 03/05/20 19 (1930) : By: [email or web address] Orig Print D/T: S: 03/05/2019 (6001) PAGE 1 Signed Report - CT HEAD/BRAIN W/O [id number] 15:02:00 [facility] 1950 Age/S: 68 / F [address] Unit #: [id number] Loc: [place] [address] Phys: Phillip Estevez MD Acct: [id number] Dis Date: Status: ADM IN PHONE #: [phone] Exam Date: 03/05/2019 1500 FAX #: [phone] Reason: Altered Mental Status EXAMS: CPT CODE: [id number] CT HEAD/BRAIN W/O CONT 51117 HISTORY: Confusion. COMPARISON: None available. CT brain [...] (1502) t.SDR.TH4 Orig Print D/T: S: 03/06/2019 (0086) PAGE 1 Signed Report - CT HEAD/BRAIN W/O [id number] 15:02:00 [facility]ILL[facility] 1950 Age/S: 68 / F [address] Unit #: [id number] Loc: [place] [address] Phys: Phillip Estevez MD Acct: [id number] Dis Date: Status: ADM IN PHONE #: [phone] Exam Date: 03/05/2019 1500 FAX #: [phone] Reason: Altered Mental Status EXAMS: CPT CODE: [id number] CT HEAD/BRAIN W/O CONT 12789 HISTORY: Confusion. COMPARISON: None available. CT brain [...] (1502) t.SDR.TH4 Orig Print D/T: S: 03/06/2019 (9515) PAGE 1 Signed Report - XR CHEST 1 [id number] 19:35:00 FAX: Tigre Rangel MD [phone] [place]: B St: REG Name: ERIN VALDIVIA [facility] : [birth year] Age/S: 68/F [address] Unit #: [id number] Loc: [place] [address] Phys: Tigre Rangel MD Acct: [id number] Dis Date: Status: REG ER PHONE #: [phone] Exam Date: 03/02/20191834 FAX #: [phone] Reason: CHEST PAIN EXAMS: CPT CODE: [id number] XR CHEST 1 V 18550 HISTORY: Chest pain. COMPARISON: None available. Location: [...] 1 Signed Report - XR CHEST 1 [id number] 19:35:00 FAX: Tigre Rangel MD [phone] [place]: B St: [facility] Name: ERIN VALDIVIA [facility] : [birth year] Age/S: 68/F [address] Unit #: [id number] Loc: [place] [address] Phys: Tigre Rangel MD Acct: [id number] Dis Date: Status: DEP ER PHONE #: [phone] Exam Date: 03/02/20191834 FAX #: [phone] Reason: CHEST PAIN EXAMS: CPT CODE: [id number] XR CHEST 1 V 71287 HISTORY: Chest pain. COMPARISON: None available. Location: . No acute infiltrates, effusion or congestion is noted. Moderate cardiomegaly. IMPRESSION: No acute infiltrates, effusion or co ngestion. a t 1934 Reported and signed by: Jamie Lovell M.D. CC: Tigre Rangel MD Technologist: MARTHA ALSTON RT(R) Trnscrd Da te/Time/By: 03/02/2019 (1934) : By: IsiahTH Orig Print D/T: S: 03/02 (1937) PAGE 1 Signed Report BASIC METABOLIC [id number] 18:55:00* Test Item Value Reference Range Interpretation [...] code = CA) 8.4 mg/dL 8.5-10.1 L [id number]-[id number] 18:55:00* Test Item Value Reference Range Interpretation Comments TROPONIN-I (test code = TROPI) <0.015 ng/mL 0-0.045 N BASIC METABOLIC [id number] 18:46:00* Test Item Value Reference Range Interpretation [...] code = CA) 8.4 mg/dL 8.5-10.1 L [id number] 18:46:00* Test Item Value Reference Range Interpretation Comments TROPONIN-I (test code = TROPI) ng/mL 0-0.045 CBC W/O [id number] 18:31:00* Test Item Value Reference Range Interpretation [...] = MPV) 9.1 fL 6.7-11.0 N PROTHROMBIN [id number] 13:45:00* Test Item Value Reference Range Interpretation [...] Mechanical prosthetic heart valves (2.5-3.5) COAGULATION TIME [id number] 13:43:00* Test Item Value Reference Range Interpretation Comments COAGULATION TIME ACTIVATED (test code = ACT) 443 seconds 62.8-88.0 H COAGULATION TIME [id number] 13:43:00* Test Item Value Reference Range Interpretation Comments COAGULATION TIME ACTIVATED (test code = ACT) 440 seconds 62.8-88.0 H PROTHROMBIN [id number] 15:50:00* Test Item Value Reference Range Interpretation [...] Atrial fibrillation Mechanical prosthetic heart valves (2.5-3.5) [id number] 11:33:00* Test Item Value Reference Range Interpretation Comments GLUBED (test code = GLUBED) 167 mg/dL 74-106 H Performed by certified tucking machine operator at [facility] PROTHROMBIN [id number] 05:38:00* Test Item Value Reference Range Interpretation [...] (2.5-3.5) IS PATIENT ON ANTICOAGULANTS? YLIST ANTICOAGULANTS [id number] 04:57:00* Test Item Value Reference Range Interpretation Comments GLUBED (test code = GLUBED) 126 mg/dL 74-106 H Performed by certified tucking machine operator at [facility] [id number] 20:36:00* Test Item Value Reference Range Interpretation Comments GLUBED (test code = GLUBED) 119 mg/dL 74-106 H Performed by certified tucking machine operator at [facility] [id number] 16:55:00* Test Item Value Reference Range Interpretation Comments GLUBED (test code = GLUBED) 166 mg/dL 74-106 H Performed by certified tucking machine operator at [facility] BASIC METABOLIC [id number] 07:24:00* Test Item Value Reference Range Interpretation [...] CA) 7.9 mg/dL 8.5-10.1 L CBC W/AUTO [id number] 06:29:00* Test Item Value Reference Range Interpretation [...] = MDIFF) NO, ONLY SCAN NEEDED DIFFERENTIAL [id number] 06:29:00* Test Item Value Reference Range Interpretation Comments STAIN ACCEPTABILITY (test code = STN ACCEPTABLE) STAIN ACCEPTABLE HYPOCHROMIA (test code = HYPO) 1+ PLATELET ESTIMATE (test code = PLTEST) ADEQUATE PLATELET MORPHOLOGY (test code = PLTMORPH) NORMAL PROTHROMBIN [id number] 05:54:00* Test Item Value Reference Range Interpretation [...] (2.5-3.5) IS PATIENT ON ANTICOAGULANTS? YLIST ANTICOAGULANTS COUMADINCB W/AUTO DIFF 2018-12-23 05:50:00* Test Item Value [...] = MDIFF) NO, ONLY SCAN NEEDED DIFFERENTIAL [id number] 05:50:00* Test Item Value Reference Range Interpretation Comments STAIN ACCEPTABILITY (test code = STN ACCEPTABLE) CABOT RINGS (test code = CAB) MORPHOLOGY COMMENT (test code = MOC) PLATELET ESTIMATE (test code = PLTEST) PLATELET MORPHOLOGY (test code = PLTMORPH) CBC W/AUTO [id number] 05:50:00* Test Item Value Reference Range Interpretation [...] = MDIFF) NO, ONLY SCAN NEEDED DIFFERENTIAL [id number] 05:50:00* Test Item Value Reference Range Interpretation Comments STAIN ACCEPTABILITY (test code = STN ACCEPTABLE) MORPHOLOGY COMMENT (test code = MOC) PLATELET ESTIMATE (test code = PLTEST) PLATELET MORPHOLOGY (test code = PLTMORPH) CBC W/AUTO [id number] 05:50:00* Test Item Value Reference Range Interpretation [...] = MDIFF) NO, ONLY SCAN NEEDED DIFFERENTIAL [id number] 05:50:00* Test Item Value Reference Range Interpretation Comments STAIN ACCEPTABILITY (test code = STN ACCEPTABLE) MORPHOLOGY COMMENT (test code = MOC) PLATELET ESTIMATE (test code = PLTEST) PLATELET MORPHOLOGY (test code = PLTMORPH) CBC W/AUTO [id number] 05:50:00* Test Item Value Reference Range Interpretation [...] = MDIFF) NO, ONLY SCAN NEEDED DIFFERENTIAL [id number] 05:50:00* Test Item Value Reference Range Interpretation Comments STAIN ACCEPTABILITY (test code = STN ACCEPTABLE) CABOT RINGS (test code = CAB) MORPHOLOGY COMMENT (test code = MOC) PLATELET ESTIMATE (test code = PLTEST) PLATELET MORPHOLOGY (test code = PLTMORPH) CBC W/AUTO [id number] 05:48:00* Test Item Value Reference Range Interpretation [...] # (test code = BA#) K/mm3 0.0-0.2 [id number] 05:05:00* Test Item Value Reference Range Interpretation Comments GLUBED (test code = GLUBED) 106 mg/dL 74-106 N Performed by certified tucking machine operator at [facility] [id number] 21:13:00* Test Item Value Reference Range Interpretation Comments GLUBED (test code = GLUBED) 102 mg/dL 74-106 N Performed by certified tucking machine operator at [facility] [id number] 17:59:00* Test Item Value Reference Range Interpretation Comments GLUBED (test code = GLUBED) 89 mg/dL 74-106 N Performed by certified tucking machine operator at [facility] [id number] 17:34:00* Test Item Value Reference Range Interpretation Comments GLUBED (test code = GLUBED) 53 mg/dL 74-106 L Performed by certified tucking machine operator at [facility] [id number] 10:50:00* Test Item Value Reference Range Interpretation Comments GLUBED (test code = GLUBED) 229 mg/dL 74-106 H Performed by certified tucking machine operator at [facility] - CT HEART W CN [id number] 08:52:00 Name: ERIN SCHILLING [facility] : 1950 Age/S: 68 / F [address] [facility] Unit #: [id number] Loc: MIHIR [place] [address] Phys: Selwyn Bustamante MD Acct: [id number] Dis Date: Status: ADM IN PHONE #: [phone] Exam Date: 12/21/2018 175 FAX #: [phone] Reason: Pulomnary vein protocol. Pre A fib ablation EXAMS: CPT CODE: [id number] CT HEART W CN ART/GRAFTS [id number] REASON FOR EXAM: Pulomnary vein protocol. Pre A fib ablation EXAM ORDER DATE: 12/21/2018 5:50 PM Ordering M.Saurabh.: Selwyn Hayes MD PROCEDURE: - CT HEART [...] CTDI: DLP: Trnscb Date/Time : 12/22/2018 (0852) Kristen.VTL Orig Print D/T: S: 12/23/19 19 (2815) PAGE 1 Signed Report PROTHROMBIN [id number] 05:06:00* Test Item Value Reference Range Interpretation [...] (2.5-3.5) IS PATIENT ON ANTICOAGULANTS? YLIST ANTICOAGULANTS [id number] 04:55:00* Test Item Value Reference Range Interpretation Comments GLUBED (test code = GLUBED) 141 mg/dL 74-106 H Performed by certified tucking machine operator at [facility] [id number] 21:30:00* Test Item Value Reference Range Interpretation Comments GLUBED (test code = GLUBED) 146 mg/dL 74-106 H Performed by certified tucking machine operator at [facility] [id number] 17:36:00* Test Item Value Reference Range Interpretation Comments GLUBED (test code = GLUBED) 178 mg/dL 74-106 H Performed by certified tucking machine operator at [facility] PROTHROMBIN [id number] 11:34:00* Test Item Value Reference Range Interpretation [...] = MDIFF) NO, ONLY SCAN NEEDED DIFFERENTIAL [id number] 08:48:00* Test Item Value Reference Range Interpretation Comments STAIN ACCEPTABILITY (test code = STN ACCEPTABLE) STAIN ACCEPTABLE POLYCHROMASIA (test code = POLC) 1+ HYPOCHROMIA (test code = HYPO) 2+ ANISOCYTOSIS (test code = ANISO) 1+ PLATELET ESTIMATE (test code = PLTEST) ADEQUATE PLATELET MORPHOLOGY (test code = PLTMORPH) NORMAL BASIC METABOLIC [id number] 07:56:00* Test Item Value Reference Range Interpretation [...] CA) 8.0 mg/dL 8.5-10.1 L CBC W/AUTO [id number] 07:54:00* Test Item Value Reference Range Interpretation [...] = MDIFF) NO, ONLY SCAN NEEDED DIFFERENTIAL [id number] 07:54:00* Test Item Value Reference Range Interpretation Comments STAIN ACCEPTABILITY (test code = STN ACCEPTABLE) CABOT RINGS (test code = CAB) MORPHOLOGY COMMENT (test code = MOC) PLATELET ESTIMATE (test code = PLTEST) PLATELET MORPHOLOGY (test code = PLTMORPH) CBC W/AUTO [id number] 07:54:00* Test Item Value Reference Range Interpretation [...] = MDIFF) NO, ONLY SCAN NEEDED DIFFERENTIAL [id number] 07:54:00* Test Item Value Reference Range Interpretation Comments STAIN ACCEPTABILITY (test code = STN ACCEPTABLE) MORPHOLOGY COMMENT (test code = MOC) PLATELET ESTIMATE (test code = PLTEST) PLATELET MORPHOLOGY (test code = PLTMORPH) BASIC METABOLIC [id number] 07:54:00* Test Item Value Reference Range Interpretation [...] CA) 8.0 mg/dL 8.5-10.1 L CBC W/AUTO [id number] 07:53:00* Test Item Value Reference Range Interpretation [...] = MDIFF) NO, ONLY SCAN NEEDED DIFFERENTIAL [id number] 07:53:00* Test Item Value Reference Range Interpretation Comments STAIN ACCEPTABILITY (test code = STN ACCEPTABLE) CABOT RINGS (test code = CAB) MORPHOLOGY COMMENT (test code = MOC) PLATELET ESTIMATE (test code = PLTEST) PLATELET MORPHOLOGY (test code = PLTMORPH) CBC W/AUTO [id number] 07:53:00* Test Item Value Reference Range Interpretation [...] = MDIFF) NO, ONLY SCAN NEEDED DIFFERENTIAL [id number] 07:53:00* Test Item Value Reference Range Interpretation Comments STAIN ACCEPTABILITY (test code = STN ACCEPTABLE) CABOT RINGS (test code = CAB) MORPHOLOGY COMMENT (test code = MOC) PLATELET ESTIMATE (test code = PLTEST) PLATELET MORPHOLOGY (test code = PLTMORPH) [id number] 05:02:00* Test Item Value Reference Range Interpretation Comments GLUBED (test code = GLUBED) 139 mg/dL 74-106 H Performed by certified tucking machine operator at [facility] [id number] 20:59:00* Test Item Value Reference Range Interpretation Comments GLUBED (test code = GLUBED) 90 mg/dL 74-106 N Performed by certified tucking machine operator at [facility] [id number] 17:54:00* Test Item Value Reference Range Interpretation Comments GLUBED (test code = GLUBED) 175 mg/dL 74-106 H Performed by certified tucking machine operator at [facility] [id number] 11:49:00* Test Item Value Reference Range Interpretation Comments GLUBED (test code = GLUBED) 189 mg/dL 74-106 H Performed by certified tucking machine operator at [facility] CBC W/AUTO [id number] 07:29:00* Test Item Value Reference Range Interpretation [...] = MDIFF) NO, ONLY SCAN NEEDED DIFFERENTIAL [id number] 07:29:00* Test Item Value Reference Range Interpretation Comments STAIN ACCEPTABILITY (test code = STN ACCEPTABLE) STAIN ACCEPTABLE MORPHOLOGY COMMENT (test code = MOC) NORMAL PLATELET ESTIMATE (test code = PLTEST) ADEQUATE PLATELET MORPHOLOGY (test code = PLTMORPH) NORMAL B-TYPE NATRIURETIC [id number] 07:23:00* Test Item Value Reference Range Interpretation Comments B-TYPE NATRIURETIC PEPTIDE (test code = BNP) 3025.99 pgram/mL 0-100 H BASIC METABOLIC [id number] 07:18:00* Test Item Value Reference Range Interpretation [...] code = CA) 8.5 mg/dL 8.5-10.1 N [id number] 07:18:00* Test Item Value Reference Range Interpretation Comments PHOSPHORUS (test code = PHOS) 3.2 mg/dL 2.5-4.9 N [id number] 07:18:00* Test Item Value Reference Range Interpretation Comments MAGNESIUM (test code = MAG) 1.9 mg/dL 1.8-2.4 N BASIC METABOLIC [id number] 07:10:00* Test Item Value Reference Range Interpretation [...] CALCIUM (test code = CA) mg/dL 8.5-10.1 [id number] 07:10:00* Test Item Value Reference Range Interpretation Comments PHOSPHORUS (test code = PHOS) mg/dL 2.5-4.9 [id number] 07:10:00* Test Item Value Reference Range Interpretation Comments MAGNESIUM (test code = MAG) mg/dL 1.8-2.4 PROTHROMBIN [id number] 07:00:00* Test Item Value Reference Range Interpretation [...] (2.5-3.5) IS PATIENT ON ANTICOAGULANTS? YLIST ANTICOAGULANTS COUMADINCB W/AUTO DIFF 2018-12-20 06:54:00* Test Item Value [...] = MDIFF) NO, ONLY SCAN NEEDED DIFFERENTIAL [id number] 06:54:00* Test Item Value Reference Range Interpretation Comments STAIN ACCEPTABILITY (test code = STN ACCEPTABLE) CABOT RINGS (test code = CAB) MORPHOLOGY COMMENT (test code = MOC) PLATELET ESTIMATE (test code = PLTEST) PLATELET MORPHOLOGY (test code = PLTMORPH) CBC W/AUTO [id number] 06:54:00* Test Item Value Reference Range Interpretation [...] = MDIFF) NO, ONLY SCAN NEEDED DIFFERENTIAL [id number] 06:54:00* Test Item Value Reference Range Interpretation Comments STAIN ACCEPTABILITY (test code = STN ACCEPTABLE) CABOT RINGS (test code = CAB) MORPHOLOGY COMMENT (test code = MOC) PLATELET ESTIMATE (test code = PLTEST) PLATELET MORPHOLOGY (test code = PLTMORPH) CBC W/AUTO [id number] 06:54:00* Test Item Value Reference Range Interpretation [...] = MDIFF) NO, ONLY SCAN NEEDED DIFFERENTIAL [id number] 06:54:00* Test Item Value Reference Range Interpretation Comments STAIN ACCEPTABILITY (test code = STN ACCEPTABLE) MORPHOLOGY COMMENT (test code = MOC) PLATELET ESTIMATE (test code = PLTEST) PLATELET MORPHOLOGY (test code = PLTMORPH) CBC W/AUTO [id number] 06:54:00* Test Item Value Reference Range Interpretation [...] = MDIFF) NO, ONLY SCAN NEEDED DIFFERENTIAL [id number] 06:54:00* Test Item Value Reference Range Interpretation Comments STAIN ACCEPTABILITY (test code = STN ACCEPTABLE) CABOT RINGS (test code = CAB) MORPHOLOGY COMMENT (test code = MOC) PLATELET ESTIMATE (test code = PLTEST) PLATELET MORPHOLOGY (test code = PLTMORPH) CBC W/AUTO [id number] 06:52:00* Test Item Value Reference Range Interpretation [...] # (test code = BA#) K/mm3 0.0-0.2 [id number] 05:00:00* Test Item Value Reference Range Interpretation Comments GLUBED (test code = GLUBED) 123 mg/dL 74-106 H Performed by certified tucking machine operator at [facility] [id number] 20:49:00* Test Item Value Reference Range Interpretation Comments GLUBED (test code = GLUBED) 122 mg/dL 74-106 H Performed by certified tucking machine operator at [facility] [id number] 17:23:00* Test Item Value Reference Range Interpretation Comments GLUBED (test code = GLUBED) 124 mg/dL 74-106 H Performed by certified tucking machine operator at [facility] [id number] 11:31:00* Test Item Value Reference Range Interpretation Comments GLUBED (test code = GLUBED) 209 mg/dL 74-106 H Performed by certified tucking machine operator at [facility] CBC W/AUTO [id number] 08:18:00* Test Item Value Reference Range Interpretation [...] = MDIFF) NO, ONLY SCAN NEEDED DIFFERENTIAL [id number] 08:18:00* Test Item Value Reference Range Interpretation Comments STAIN ACCEPTABILITY (test code = STN ACCEPTABLE) STAIN ACCEPTABLE HYPOCHROMIA (test code = HYPO) 1+ ANISOCYTOSIS (test code = ANISO) 1+ PLATELET ESTIMATE (test code = PLTEST) ADEQUATE PLATELET MORPHOLOGY (test code = PLTMORPH) NORMAL B-TYPE NATRIURETIC [id number] 07:13:00* Test Item Value Reference Range Interpretation Comments B-TYPE NATRIURETIC PEPTIDE (test code = BNP) 3421.57 pgram/mL 0-100 H BASIC METABOLIC [id number] 07:11:00* Test Item Value Reference Range Interpretation [...] code = CA) 8.5 mg/dL 8.5-10.1 N [id number] 07:11:00* Test Item Value Reference Range Interpretation Comments MAGNESIUM (test code = MAG) 2.0 mg/dL 1.8-2.4 N BASIC METABOLIC [id number] 07:01:00* Test Item Value Reference Range Interpretation [...] CALCIUM (test code = CA) mg/dL 8.5-10.1 [id number] 07:01:00* Test Item Value Reference Range Interpretation Comments MAGNESIUM (test code = MAG) mg/dL 1.8-2.4 PROTHROMBIN [id number] 06:59:00* Test Item Value Reference Range Interpretation [...] = MDIFF) NO, ONLY SCAN NEEDED DIFFERENTIAL [id number] 06:45:00* Test Item Value Reference Range Interpretation Comments STAIN ACCEPTABILITY (test code = STN ACCEPTABLE) CABOT RINGS (test code = CAB) MORPHOLOGY COMMENT (test code = MOC) PLATELET ESTIMATE (test code = PLTEST) PLATELET MORPHOLOGY (test code = PLTMORPH) CBC W/AUTO [id number] 06:45:00* Test Item Value Reference Range Interpretation [...] = MDIFF) NO, ONLY SCAN NEEDED DIFFERENTIAL [id number] 06:45:00* Test Item Value Reference Range Interpretation Comments STAIN ACCEPTABILITY (test code = STN ACCEPTABLE) CABOT RINGS (test code = CAB) MORPHOLOGY COMMENT (test code = MOC) PLATELET ESTIMATE (test code = PLTEST) PLATELET MORPHOLOGY (test code = PLTMORPH) CBC W/AUTO [id number] 06:45:00* Test Item Value Reference Range Interpretation [...] = MDIFF) NO, ONLY SCAN NEEDED DIFFERENTIAL [id number] 06:45:00* Test Item Value Reference Range Interpretation Comments STAIN ACCEPTABILITY (test code = STN ACCEPTABLE) MORPHOLOGY COMMENT (test code = MOC) PLATELET ESTIMATE (test code = PLTEST) PLATELET MORPHOLOGY (test code = PLTMORPH) CBC W/AUTO [id number] 06:45:00* Test Item Value Reference Range Interpretation [...] = MDIFF) NO, ONLY SCAN NEEDED DIFFERENTIAL [id number] 06:45:00* Test Item Value Reference Range Interpretation Comments STAIN ACCEPTABILITY (test code = STN ACCEPTABLE) CABOT RINGS (test code = CAB) MORPHOLOGY COMMENT (test code = MOC) PLATELET ESTIMATE (test code = PLTEST) PLATELET MORPHOLOGY (test code = PLTMORPH) CBC W/AUTO [id number] 06:42:00* Test Item Value Reference Range Interpretation [...] (test code = BA#) K/mm3 0.0-0.2 T3 [id number] 06:07:00* Test Item Value Reference Range Interpretation Comments T3 FREE (test code = T3F) 1.5 pg/mL 2.0-4.4 L Pe rformed At: [facility] [address] [id number] Kyle L MD Ph:[phone] [id number] 05:32:00* Test Item Value Reference Range Interpretation Comments GLUBED (test code = GLUBED) 104 mg/dL 74-106 N Performed by certified tucking machine operator at [facility] [id number] 23:08:00* Test Item Value Reference Range Interpretation Comments GLUBED (test code = GLUBED) 153 mg/dL 74-106 H Performed by certified tucking machine operator at [facility] [id number] 21:07:00* Test Item Value Reference Range Interpretation Comments GLUBED (test code = GLUBED) 110 mg/dL 74-106 H Performed by certified tucking machine operator at [facility] [id number] 16:30:00* Test Item Value Reference Range Interpretation Comments GLUBED (test code = GLUBED) 86 mg/dL 74-106 N Performed by certified tucking machine operator at [facility] THYROID PROFILE [id number] 13:17:00* Test Item Value Reference Range Interpretation [...] mIU/mL HYPER : < 0.35 mIU/mL T4 [id number] 13:17:00* Test Item Value Reference Range Interpretation Comments T4 FREE (test code = T4F) 1.46 ng/dL 0.76-1.46 N [id number] 12:00:00* Test Item Value Reference Range Interpretation Comments GLUBED (test code = GLUBED) 203 mg/dL 74-106 H Performed by certified tucking machine operator at [facility] [id number] 06:43:00* Test Item Value Reference Range Interpretation Comments GLUBED (test code = GLUBED) 144 mg/dL 74-106 H Performed by certified tucking machine operator at [facility] PROTHROMBIN [id number] 06:11:00* Test Item Value Reference Range Interpretation [...] (2.5-3.5) IS PATIENT ON ANTICOAGULANTS? YLIST ANTICOAGULANTS [id number] 20:42:00* Test Item Value Reference Range Interpretation Comments GLUBED (test code = GLUBED) 146 mg/dL 74-106 H Performed by certified tucking machine operator at [facility] [id number] 16:58:00* Test Item Value Reference Range Interpretation Comments GLUBED (test code = GLUBED) 169 mg/dL 74-106 H Performed by certified tucking machine operator at [facility] [id number] 16:58:00* Test Item Value Reference Range Interpretation Comments GLUBED (test code = GLUBED) 149 mg/dL 74-106 H Performed by certified tucking machine operator at [facility] CBC W/AUTO [id number] 06:16:00* Test Item Value Reference Range Interpretation [...] = MDIFF) NO, ONLY SCAN NEEDED DIFFERENTIAL [id number] 06:16:00* Test Item Value Reference Range Interpretation Comments STAIN ACCEPTABILITY (test code = STN ACCEPTABLE) STAIN ACCEPTABLE HYPOCHROMIA (test code = HYPO) 1+ ANISOCYTOSIS (test code = ANISO) 1+ MICROCYTOSIS (test code = MICR) 1+ PLATELET ESTIMATE (test code = PLTEST) ADEQUATE PLATELET MORPHOLOGY (test code = PLTMORPH) NORMAL BASIC METABOLIC [id number] 06:03:00* Test Item Value Reference Range Interpretation [...] code = CA) 8.2 mg/dL 8.5-10.1 L [id number] 06:01:00* Test Item Value Reference Range Interpretation Comments GLUBED (test code = GLUBED) 125 mg/dL 74-106 H Performed by certified tucking machine operator at [facility] PROTHROMBIN [id number] 05:30:00* Test Item Value Reference Range Interpretation [...] = MDIFF) NO, ONLY SCAN NEEDED DIFFERENTIAL [id number] 05:27:00* Test Item Value Reference Range Interpretation Comments STAIN ACCEPTABILITY (test code = STN ACCEPTABLE) CABOT RINGS (test code = CAB) MORPHOLOGY COMMENT (test code = MOC) PLATELET ESTIMATE (test code = PLTEST) PLATELET MORPHOLOGY (test code = PLTMORPH) CBC W/AUTO [id number] 05:27:00* Test Item Value Reference Range Interpretation [...] = MDIFF) NO, ONLY SCAN NEEDED DIFFERENTIAL [id number] 05:27:00* Test Item Value Reference Range Interpretation Comments STAIN ACCEPTABILITY (test code = STN ACCEPTABLE) CABOT RINGS (test code = CAB) MORPHOLOGY COMMENT (test code = MOC) PLATELET ESTIMATE (test code = PLTEST) PLATELET MORPHOLOGY (test code = PLTMORPH) CBC W/AUTO [id number] 05:27:00* Test Item Value Reference Range Interpretation [...] = MDIFF) NO, ONLY SCAN NEEDED DIFFERENTIAL [id number] 05:27:00* Test Item Value Reference Range Interpretation Comments STAIN ACCEPTABILITY (test code = STN ACCEPTABLE) MORPHOLOGY COMMENT (test code = MOC) PLATELET ESTIMATE (test code = PLTEST) PLATELET MORPHOLOGY (test code = PLTMORPH) CBC W/AUTO [id number] 05:27:00* Test Item Value Reference Range Interpretation [...] = MDIFF) NO, ONLY SCAN NEEDED DIFFERENTIAL [id number] 05:27:00* Test Item Value Reference Range Interpretation Comments STAIN ACCEPTABILITY (test code = STN ACCEPTABLE) CABOT RINGS (test code = CAB) MORPHOLOGY COMMENT (test code = MOC) PLATELET ESTIMATE (test code = PLTEST) PLATELET MORPHOLOGY (test code = PLTMORPH) [id number] 20:47:00* Test Item Value Reference Range Interpretation Comments GLUBED (test code = GLUBED) 136 mg/dL 74-106 H Performed by certified tucking machine operator at [facility] [id number] 16:33:00* Test Item Value Reference Range Interpretation Comments GLUBED (test code = GLUBED) 173 mg/dL 74-106 H Performed by certified tucking machine operator at [facility] [id number] 06:25:00* Test Item Value Reference Range Interpretation Comments GLUBED (test code = GLUBED) 142 mg/dL 74-106 H Performed by certified tucking machine operator at [facility] BASIC METABOLIC [id number] 06:25:00* Test Item Value Reference Range Interpretation [...] CA) 8.3 mg/dL 8.5-10.1 L CBC W/AUTO [id number] 06:25:00* Test Item Value Reference Range Interpretation [...] = MDIFF) NO, ONLY SCAN NEEDED DIFFERENTIAL [id number] 06:25:00* Test Item Value Reference Range Interpretation Comments STAIN ACCEPTABILITY (test code = STN ACCEPTABLE) STAIN ACCEPTABLE HYPOCHROMIA (test code = HYPO) 1+ ANISOCYTOSIS (test code = ANISO) 1+ MACROCYTOSIS (test code = MACR) 1+ PLATELET ESTIMATE (test code = PLTEST) ADEQUATE PLATELET MORPHOLOGY (test code = PLTMORPH) NORMAL BASIC METABOLIC [id number] 06:19:00* Test Item Value Reference Range Interpretation [...] (test code = CA) mg/dL 8.5-10.1 PROTHROMBIN [id number] 05:39:00* Test Item Value Reference Range Interpretation [...] = MDIFF) NO, ONLY SCAN NEEDED DIFFERENTIAL [id number] 05:38:00* Test Item Value Reference Range Interpretation Comments STAIN ACCEPTABILITY (test code = STN ACCEPTABLE) CABOT RINGS (test code = CAB) MORPHOLOGY COMMENT (test code = MOC) PLATELET ESTIMATE (test code = PLTEST) PLATELET MORPHOLOGY (test code = PLTMORPH) CBC W/AUTO [id number] 05:38:00* Test Item Value Reference Range Interpretation [...] = MDIFF) NO, ONLY SCAN NEEDED DIFFERENTIAL [id number] 05:38:00* Test Item Value Reference Range Interpretation Comments STAIN ACCEPTABILITY (test code = STN ACCEPTABLE) MORPHOLOGY COMMENT (test code = MOC) PLATELET ESTIMATE (test code = PLTEST) PLATELET MORPHOLOGY (test code = PLTMORPH) CBC W/AUTO [id number] 05:37:00* Test Item Value Reference Range Interpretation [...] = MDIFF) NO, ONLY SCAN NEEDED DIFFERENTIAL [id number] 05:37:00* Test Item Value Reference Range Interpretation Comments STAIN ACCEPTABILITY (test code = STN ACCEPTABLE) CABOT RINGS (test code = CAB) MORPHOLOGY COMMENT (test code = MOC) PLATELET ESTIMATE (test code = PLTEST) PLATELET MORPHOLOGY (test code = PLTMORPH) CBC W/AUTO [id number] 05:37:00* Test Item Value Reference Range Interpretation [...] = MDIFF) NO, ONLY SCAN NEEDED DIFFERENTIAL [id number] 05:37:00* Test Item Value Reference Range Interpretation Comments STAIN ACCEPTABILITY (test code = STN ACCEPTABLE) CABOT RINGS (test code = CAB) MORPHOLOGY COMMENT (test code = MOC) PLATELET ESTIMATE (test code = PLTEST) PLATELET MORPHOLOGY (test code = PLTMORPH) [id number] 20:37:00* Test Item Value Reference Range Interpretation Comments GLUBED (test code = GLUBED) 175 mg/dL 74-106 H Performed by certified tucking machine operator at [facility] [id number] 17:15:00* Test Item Value Reference Range Interpretation Comments GLUBED (test code = GLUBED) 111 mg/dL 74-106 H Performed by certified tucking machine operator at [facility] [id number] 13:12:00* Test Item Value Reference Range Interpretation Comments GLUBED (test code = GLUBED) 160 mg/dL 74-106 H Performed by certified tucking machine operator at [facility] CBC W/AUTO [id number] 08:22:00* Test Item Value Reference Range Interpretation [...] = MDIFF) NO, ONLY SCAN NEEDED DIFFERENTIAL [id number] 08:22:00* Test Item Value Reference Range Interpretation Comments STAIN ACCEPTABILITY (test code = STN ACCEPTABLE) STAIN ACCEPTABLE POLYCHROMASIA (test code = POLC) 1+ HYPOCHROMIA (test code = HYPO) 2+ POIKILOCYTOSIS (test code = POIK) 1+ BASOPHILIC STIPPLING (test code = STP) 1+ ANISOCYTOSIS (test code = ANISO) 2+ PLATELET ESTIMATE (test code = PLTEST) ADEQUATE PLATELET MORPHOLOGY (test code = PLTMORPH) NORMAL PROTHROMBIN [id number] 07:06:00* Test Item Value Reference Range Interpretation [...] PATIENT ON ANTICOAGULANTS? YLIST ANTICOAGULANTS COUMADINBASIC METABOLIC [id number] 06:48:00* Test Item Value Reference Range Interpretation [...] code = CA) 7.6 mg/dL 8.5-10.1 L [id number] 06:48:00* Test Item Value Reference Range Interpretation Comments MAGNESIUM (test code = MAG) 1.8 mg/dL 1.8-2.4 N CBC W/AUTO [id number] 06:47:00* Test Item Value Reference Range Interpretation [...] = MDIFF) NO, ONLY SCAN NEEDED DIFFERENTIAL [id number] 06:47:00* Test Item Value Reference Range Interpretation Comments STAIN ACCEPTABILITY (test code = STN ACCEPTABLE) CABOT RINGS (test code = CAB) MORPHOLOGY COMMENT (test code = MOC) PLATELET ESTIMATE (test code = PLTEST) PLATELET MORPHOLOGY (test code = PLTMORPH) CBC W/AUTO [id number] 06:47:00* Test Item Value Reference Range Interpretation [...] = MDIFF) NO, ONLY SCAN NEEDED DIFFERENTIAL [id number] 06:47:00* Test Item Value Reference Range Interpretation Comments STAIN ACCEPTABILITY (test code = STN ACCEPTABLE) MORPHOLOGY COMMENT (test code = MOC) PLATELET ESTIMATE (test code = PLTEST) PLATELET MORPHOLOGY (test code = PLTMORPH) CBC W/AUTO [id number] 06:47:00* Test Item Value Reference Range Interpretation [...] = MDIFF) NO, ONLY SCAN NEEDED DIFFERENTIAL [id number] 06:47:00* Test Item Value Reference Range Interpretation Comments STAIN ACCEPTABILITY (test code = STN ACCEPTABLE) MORPHOLOGY COMMENT (test code = MOC) PLATELET ESTIMATE (test code = PLTEST) PLATELET MORPHOLOGY (test code = PLTMORPH) CBC W/AUTO [id number] 06:46:00* Test Item Value Reference Range Interpretation [...] = MDIFF) NO, ONLY SCAN NEEDED DIFFERENTIAL [id number] 06:46:00* Test Item Value Reference Range Interpretation Comments STAIN ACCEPTABILITY (test code = STN ACCEPTABLE) CABOT RINGS (test code = CAB) MORPHOLOGY COMMENT (test code = MOC) PLATELET ESTIMATE (test code = PLTEST) PLATELET MORPHOLOGY (test code = PLTMORPH) BASIC METABOLIC [id number] 06:44:00* Test Item Value Reference Range Interpretation [...] CALCIUM (test code = CA) mg/dL 8.5-10.1 [id number] 06:44:00* Test Item Value Reference Range Interpretation Comments MAGNESIUM (test code = MAG) mg/dL 1.8-2.4 [id number] 05:08:00* Test Item Value Reference Range Interpretation Comments GLUBED (test code = GLUBED) 159 mg/dL 74-106 H Performed by certified tucking machine operator at [facility] [id number] 20:34:00* Test Item Value Reference Range Interpretation Comments GLUBED (test code = GLUBED) 141 mg/dL 74-106 H Performed by certified tucking machine operator at [facility] [id number] 17:13:00* Test Item Value Reference Range Interpretation Comments GLUBED (test code = GLUBED) 252 mg/dL 74-106 H Performed by certified tucking machine operator at [facility] [id number] 12:17:00* Test Item Value Reference Range Interpretation Comments GLUBED (test code = GLUBED) 210 mg/dL 74-106 H Performed by certified tucking machine operator at [facility] [id number] 08:19:00* Test Item Value Reference Range Interpretation Comments GLUBED (test code = GLUBED) 158 mg/dL 74-106 H Performed by certified tucking machine operator at [facility] [id number] 08:19:00* Test Item Value Reference Range Interpretation Comments GLUBED (test code = GLUBED) 183 mg/dL 74-106 H Performed by certified tucking machine operator at [facility] [id number] 08:19:00* Test Item Value Reference Range Interpretation Comments GLUBED (test code = GLUBED) 167 mg/dL 74-106 H Performed by certified tucking machine operator at [facility] [id number] 08:18:00* Test Item Value Reference Range Interpretation Comments GLUBED (test code = GLUBED) 221 mg/dL 74-106 H Performed by certified tucking machine operator at [facility] BASIC METABOLIC [id number] 07:29:00* Test Item Value Reference Range Interpretation [...] This LDL result is a direct measurement.========= [id number] 07:29:00* Test Item Value Reference Range Interpretation Comments PHOSPHORUS (test code = PHOS) 4.0 mg/dL 2.5-4.9 N [id number] 07:29:00* Test Item Value Reference Range Interpretation Comments MAGNESIUM (test code = MAG) 2.0 mg/dL 1.8-2.4 N T4 [id number] 07:29:00* Test Item Value Reference Range Interpretation Comments T4 FREE (test code = T4F) 1.30 ng/dL 0.76-1.46 N THYROID STIMULATING [id number] 07:29:00* Test Item Value Reference Range Interpretation Comments THYROID STIMULATING HORMONE (test code = TSH) 1.180 uIU/mL 0.36-3.7 4 N TSH REFERENCE RANGES: EUTHYROID: 0.35 - 4.3 mIU/mL HYPO : > 5.5 mIU/mL HYPER : < 0.35 mIU/mL B-TYPE NATRIURETIC [id number] 07:01:00* Test Item Value Reference Range Interpretation Comments B-TYPE NATRIURETIC PEPTIDE (test code = BNP) 2114.37 pgram/mL 0-100 H BASIC METABOLIC [id number] 06:57:00* Test Item Value Reference Range Interpretation [...] This LDL result is a direct measurement.========= [id number] 06:57:00* Test Item Value Reference Range Interpretation Comments PHOSPHORUS (test code = PHOS) 4.0 mg/dL 2.5-4.9 N [id number] 06:57:00* Test Item Value Reference Range Interpretation Comments MAGNESIUM (test code = MAG) 2.0 mg/dL 1.8-2.4 N T4 [id number] 06:57:00* Test Item Value Reference Range Interpretation Comments T4 FREE (test code = T4F) 1.30 ng/dL 0.76-1.46 N THYROID STIMULATING [id number] 06:57:00* Test Item Value Reference Range Interpretation Comments THYROID STIMULATING HORMONE (test code = TSH) uIU/mL 0.36-3.7 4 BASIC METABOLIC [id number] 06:35:00* Test Item Value Reference Range Interpretation [...] LDL (test code = LDL) mg/dL 100-129 [id number] 06:35:00* Test Item Value Reference Range Interpretation Comments PHOSPHORUS (test code = PHOS) mg/dL 2.5-4.9 [id number] 06:35:00* Test Item Value Reference Range Interpretation Comments MAGNESIUM (test code = MAG) mg/dL 1.8-2.4 T4 [id number] 06:35:00* Test Item Value Reference Range Interpretation Comments T4 FREE (test code = T4F) ng/dL 0.76-1.46 THYROID STIMULATING [id number] 06:35:00* Test Item Value Reference Range Interpretation Comments THYROID STIMULATING HORMONE (test code = TSH) uIU/mL 0.36-3.7 4 [id number] 06:11:00* Test Item Value Reference Range Interpretation Comments GLYCOSYLATED HEMOGLOBIN (HA1C) (test code = GLYHGB) 7.0 % HbA1 4. 8-6.0 H ESTIMATED AVERAGE GLUCOSE (test code = EAG) 154 MG/DL CBC W/AUTO [id number] 06:11:00* Test Item Value Reference Range Interpretation [...] = MDIFF) NO, ONLY SCAN NEEDED DIFFERENTIAL [id number] 06:11:00* Test Item Value Reference Range Interpretation Comments STAIN ACCEPTABILITY (test code = STN ACCEPTABLE) STAIN ACCEPTABLE HYPOCHROMIA (test code = HYPO) 1+ ANISOCYTOSIS (test code = ANISO) 1+ MICROCYTOSIS (test code = MICR) 1+ PLATELET ESTIMATE (test code = PLTEST) ADEQUATE PLATELET MORPHOLOGY (test code = PLTMORPH) NORMAL PROTHROMBIN [id number] 05:56:00* Test Item Value Reference Range Interpretation [...] = MDIFF) NO, ONLY SCAN NEEDED DIFFERENTIAL [id number] 05:46:00* Test Item Value Reference Range Interpretation Comments STAIN ACCEPTABILITY (test code = STN ACCEPTABLE) CABOT RINGS (test code = CAB) MORPHOLOGY COMMENT (test code = MOC) PLATELET ESTIMATE (test code = PLTEST) PLATELET MORPHOLOGY (test code = PLTMORPH) CBC W/AUTO [id number] 05:46:00* Test Item Value Reference Range Interpretation [...] = MDIFF) NO, ONLY SCAN NEEDED DIFFERENTIAL [id number] 05:46:00* Test Item Value Reference Range Interpretation Comments STAIN ACCEPTABILITY (test code = STN ACCEPTABLE) MORPHOLOGY COMMENT (test code = MOC) PLATELET ESTIMATE (test code = PLTEST) PLATELET MORPHOLOGY (test code = PLTMORPH) CBC W/AUTO [id number] 05:46:00* Test Item Value Reference Range Interpretation [...] = MDIFF) NO, ONLY SCAN NEEDED DIFFERENTIAL [id number] 05:46:00* Test Item Value Reference Range Interpretation Comments STAIN ACCEPTABILITY (test code = STN ACCEPTABLE) MORPHOLOGY COMMENT (test code = MOC) PLATELET ESTIMATE (test code = PLTEST) PLATELET MORPHOLOGY (test code = PLTMORPH) CBC W/AUTO [id number] 05:46:00* Test Item Value Reference Range Interpretation [...] = MDIFF) NO, ONLY SCAN NEEDED DIFFERENTIAL [id number] 05:46:00* Test Item Value Reference Range Interpretation Comments STAIN ACCEPTABILITY (test code = STN ACCEPTABLE) CABOT RINGS (test code = CAB) MORPHOLOGY COMMENT (test code = MOC) PLATELET ESTIMATE (test code = PLTEST) PLATELET MORPHOLOGY (test code = PLTMORPH) PROTHROMBIN [id number] 23:52:00* Test Item Value Reference Range Interpretation [...] (2.5-3.5) IS PATIENT ON ANTICOAGULANTS? YLIST ANTICOAGULANTS [id number] 20:41:00* Test Item Value Reference Range Interpretation Comments GLUBED (test code = GLUBED) 145 mg/dL 74-106 H Performed by certified tucking machine operator at [facility] PROTHROMBIN [id number] 19:01:00* Test Item Value Reference Range Interpretation [...] ON ANTICOAGULANTS? YLIST ANTICOAGULANTS COUMADINAB HEPATITIS B [id number] 05:09:00* Test Item Value Reference Range Interpretation Comments AB HEPATITIS B SURFACE (test code = HBSAB) Non Reactive () Non Reactive: Inconsistent with immunity, less than 10 mIU/mL Reactive: Consistent with immunity, greater than 9.9 mIU/mLPerformed At: [facility] [id number] [place], [place] [id number] Kyle L MD Ph:[phone] [id number] 23:39:00* Test Item Value Reference Range Interpretation Comments GLUBED (test code = GLUBED) 112 mg/dL 74-106 H Performed by certified tucking machine operator at [facility] [id number] 17:40:00* Test Item Value Reference Range Interpretation Comments GLUBED (test code = GLUBED) 217 mg/dL 74-106 H Performed by certified tucking machine operator at [facility] BASIC METABOLIC [id number] 14:34:00* Test Item Value Reference Range Interpretation [...] CA) 8.5 mg/dL 8.5-10.1 N CBC W/AUTO [id number] 13:37:00* Test Item Value Reference Range Interpretation [...] = MDIFF) NO, ONLY SCAN NEEDED DIFFERENTIAL [id number] 13:37:00* Test Item Value Reference Range Interpretation Comments STAIN ACCEPTABILITY (test code = STN ACCEPTABLE) STAIN ACCEPTABLE POLYCHROMASIA (test code = POLC) 1+ POIKILOCYTOSIS (test code = POIK) 1+ ANISOCYTOSIS (test code = ANISO) 1+ PLATELET ESTIMATE (test code = PLTEST) ADEQUATE PLATELET MORPHOLOGY (test code = PLTMORPH) NORMAL CBC W/AUTO [id number] 12:54:00* Test Item Value Reference Range Interpretation [...] = MDIFF) NO, ONLY SCAN NEEDED DIFFERENTIAL [id number] 12:54:00* Test Item Value Reference Range Interpretation Comments STAIN ACCEPTABILITY (test code = STN ACCEPTABLE) CABOT RINGS (test code = CAB) MORPHOLOGY COMMENT (test code = MOC) PLATELET ESTIMATE (test code = PLTEST) PLATELET MORPHOLOGY (test code = PLTMORPH) CBC W/AUTO [id number] 12:54:00* Test Item Value Reference Range Interpretation [...] = MDIFF) NO, ONLY SCAN NEEDED DIFFERENTIAL [id number] 12:54:00* Test Item Value Reference Range Interpretation Comments STAIN ACCEPTABILITY (test code = STN ACCEPTABLE) CABOT RINGS (test code = CAB) MORPHOLOGY COMMENT (test code = MOC) PLATELET ESTIMATE (test code = PLTEST) PLATELET MORPHOLOGY (test code = PLTMORPH) CBC W/AUTO [id number] 12:54:00* Test Item Value Reference Range Interpretation [...] = MDIFF) NO, ONLY SCAN NEEDED DIFFERENTIAL [id number] 12:54:00* Test Item Value Reference Range Interpretation Comments STAIN ACCEPTABILITY (test code = STN ACCEPTABLE) MORPHOLOGY COMMENT (test code = MOC) PLATELET ESTIMATE (test code = PLTEST) PLATELET MORPHOLOGY (test code = PLTMORPH) CBC W/AUTO [id number] 12:54:00* Test Item Value Reference Range Interpretation [...] = MDIFF) NO, ONLY SCAN NEEDED DIFFERENTIAL [id number] 12:54:00* Test Item Value Reference Range Interpretation Comments STAIN ACCEPTABILITY (test code = STN ACCEPTABLE) CABOT RINGS (test code = CAB) MORPHOLOGY COMMENT (test code = MOC) PLATELET ESTIMATE (test code = PLTEST) PLATELET MORPHOLOGY (test code = PLTMORPH) [id number] 12:52:00* Test Item Value Reference Range Interpretation Comments GLUBED (test code = GLUBED) 196 mg/dL 74-106 H Performed by certified tucking machine operator at [facility] AG HEPAT B [id number] 12:11:00* Test Item Value Reference Range Interpretation Comments AG HEPAT B SURF (test code = HBSAG) Nonreactive Index Nonreactive [id number] 10:26:00* Test Item Value Reference Range Interpretation Comments GLUBED (test code = GLUBED) 222 mg/dL 74-106 H Performed by certified tucking machine operator at [facility] [id number] 10:26:00* Test Item Value Reference Range Interpretation Comments GLUBED (test code = GLUBED) 77 mg/dL 74-106 N Performed by certified tucking machine operator at [facility] BASIC METABOLIC [id number] 06:34:00* Test Item Value Reference Range Interpretation Comments SODIUM (test code = NA) 136 mmol/L 136-145 N POTASSIUM (test code = K) 6.0 mmol/L 3.5-5.1 H Re sults called to [id number] by V.LAB.JP1 12/12/18 0631Critical results verified and read back [...] = CA) 8.1 mg/dL 8.5-10.1 L CALCIUM [id number] 06:12:00* Test Item Value Reference Range Interpretation Comments CALCIUM IONIZED (test code = RON) 1.07 mmol/L 1.12-1.32 L BASIC METABOLIC [id number] 01:57:00* Test Item Value Reference Range Interpretation Comments SODIUM (test code = NA) 135 mmol/L 136-145 L POTASSIUM (test code = K) 6.1 mmol/L 3.5-5.1 H Re sults called to ADRIANA (MELCHOR); [id number] V.LAB.INGE 12/12/18 0150Critical results verified and read [...] CA) 7.9 mg/dL 8.5-10.1 L BASIC METABOLIC [id number] 01:50:00* Test Item Value Reference Range Interpretation [...] CA) 7.9 mg/dL 8.5-10.1 L BASIC METABOLIC [id number] 21:14:00* Test Item Value Reference Range Interpretation Comments SODIUM (test code = NA) 134 mmol/L 136-145 L POTASSIUM (test code = K) 6.8 mmol/L 3.5-5.1 [facility] sults called to [id number] by VSanitorsLAB.MA 12/11/18 2104Critical results verified and read back [...] CA) 8.0 mg/dL 8.5-10.1 L HEPATIC FUNCTION [id number] 21:14:00* Test Item Value Reference Range Interpretation [...] reference range due to change in reagent. [id number] 21:14:00* Test Item Value Reference Range Interpretation Comments LIPASE (test code = LIP) 77 U/L 73.0-393.0 N [id number] 21:14:00* Test Item Value Reference Range Interpretation Comments TROPONIN-I (test code = TROPI) <0.015 ng/mL 0-0.045 N BASIC METABOLIC [id number] 21:05:00* Test Item Value Reference Range Interpretation Comments SODIUM (test code = NA) 134 mmol/L 136-145 L POTASSIUM (test code = K) 6.8 mmol/L 3.5-5.1 Re sults called to [id number] by V.LAB.BERNICE 12/11/18 2104Critical results verified and [...] CA) 8.0 mg/dL 8.5-10.1 L HEPATIC FUNCTION [id number] 21:05:00* Test Item Value Reference Range Interpretation [...] TOTAL (test code = ALKP) IUnit/L 45-117 [id number] 21:05:00* Test Item Value Reference Range Interpretation Comments LIPASE (test code = LIP) 77 U/L 73.0-393.0 N [id number] 21:05:00* Test Item Value Reference Range Interpretation Comments TROPONIN-I (test code = TROPI) ng/mL 0-0.045 PROTHROMBIN [id number] 21:01:00* Test Item Value Reference Range Interpretation Comments PROTHROMBIN TIME PATIENT (test code = PTP) 64.5 seconds 9.0-14.0 H INTERNATIONAL NORMAL RATIO (test code = INR) 5.5 0.8-1.2 Results called to [id number] by V.LAB.TS1 12/11/18 2101Critical results verified and read back [...] (2.5-3.5) IS PATIENT ON ANTICOAGULANTS? NTHROMBOPLASTIN TIME [id number] 21:01:00* Test Item Value Reference Range Interpretation Comments THROMBOPLASTIN TIME PARTIAL (test code = PTT) 61.4 seconds 25.0-36. 5 H IS PATIENT ON ANTICOAGULANTS? NCBC W/O [id number] 20:40:00* Test Item Value Reference Range Interpretation [...] code = MPV) fL 6.7-11.0 CBC W/O [id number] 20:40:00* Test Item Value Reference Range Interpretation [...] fL 6.7-11.0 N - XR CHEST 1 [id number] 20:22:00 FAX: Alaina Ramos MD [phone] [place]: St: [facility] FAX: Torri Conti MD [phone] Name: ERIN SCHILLING [facility] : 1950 Age/S: 68/F [address] [facility] Unit #: [id number] Loc: [place] [address] Phys: Torri Conti MD Acct: [id number] Dis Date: Status: REG ER PHONE #: [phone] Exam Date: 12/11/20182012 FAX #: [phone] Reason: CHEST PAIN EXAMS: CPT CODE: [id number] XR CHEST 1 V 16287 REASON FOR EXAM: CHEST PAIN EXAM ORDER DATE: 12/11/2018 8:01 PM Ordering MLuis Angel: Torri Conti MD [...] Alonzo; Torri Conti MD Technologist: Leigh Ann Mcintosh(Mirza) Trnscrd Date/Time/By: 12/11/2018 (2021) : By: IsiahVTL Orig Print D/T: S: 12/11/2018 (2024) PAGE 1 Signed Report PROTHROMBIN [id number] 16:35:00* Test Item Value Reference Range Interpretation [...] Mechanical prosthetic heart valves (2.5-3.5) BASIC METABOLIC [id number] 10:26:00* Test Item Value Reference Range Interpretation [...] CA) 7.6 mg/dL 8.5-10.1 L CBC W/AUTO [id number] 10:17:00* Test Item Value Reference Range Interpretation [...] code = NRBC#) 0.00 K/mm3 0.0-0.1 N [id number] 05:41:00* Test Item Value Reference Range Interpretation Comments GLUBED (test code = GLUBED) 196 mg/dL 74-106 H Performed by certified tucking machine operator at [facility] PROTHROMBIN [id number] 05:20:00* Test Item Value Reference Range Interpretation [...] (2.5-3.5) IS PATIENT ON ANTICOAGULANTS? YLIST ANTICOAGULANTS [id number] 02:55:00* Test Item Value Reference Range Interpretation Comments GLUBED (test code = GLUBED) 176 mg/dL 74-106 H Performed by certified tucking machine operator at [facility] [id number] 20:25:00* Test Item Value Reference Range Interpretation Comments GLUBED (test code = GLUBED) 207 mg/dL 74-106 H Performed by certified tucking machine operator at [facility] [id number] 17:11:00* Test Item Value Reference Range Interpretation Comments GLUBED (test code = GLUBED) 189 mg/dL 74-106 H Performed by certified tucking machine operator at [facility] [id number] 13:10:00* Test Item Value Reference Range Interpretation Comments GLUBED (test code = GLUBED) 254 mg/dL 74-106 H Performed by certified tucking machine operator at [facility] [id number] 06:14:00* Test Item Value Reference Range Interpretation Comments GLUBED (test code = GLUBED) 179 mg/dL 74-106 H Performed by certified tucking machine operator at [facility] PROTHROMBIN [id number] 05:31:00* Test Item Value Reference Range Interpretation [...] (2.5-3.5) IS PATIENT ON ANTICOAGULANTS? YLIST ANTICOAGULANTS [id number] 21:43:00* Test Item Value Reference Range Interpretation Comments GLUBED (test code = GLUBED) 235 mg/dL 74-106 H Performed by certified tucking machine operator at [facility] [id number] 16:47:00* Test Item Value Reference Range Interpretation Comments GLUBED (test code = GLUBED) 125 mg/dL 74-106 H Performed by certified tucking machine operator at [facility] - MRI BRAIN W/O [id number] 16:30:00 FAX: Alaina Ramos MD [phone] [place]: B St: ADM FAX: Tigre Rangel MD [phone] Name: ERIN SCHILLING [facility] : 1950 Age/S: 68/F [address] [facility] Unit #: [id number] Loc: V.[address] [place] [address] Phys: Tigre Rangel MD Acct: [id number] Dis Date: Status: ADM IN PHONE #: [phone] Exam Date: 11/26/2018 1526 FAX #: [phone] Reason: weak dizzy ataxia, h/o afib EXAMS: CPT CODE: [id number] MRI BRAIN W/O CONTRAST 98064 HISTORY: weak dizzy ataxia, h/o afib TECHNIQUE: [...] Rangel MD Technologist: TAYLA NYERT - MRI Trnflrd Date/Time/By: 11/26/2018 (6490) : By: [email or web address] Orig Print D/T: S: 11/26/2018 (8398) PAGE 1 Signed Report PROTHROMBIN [id number] 16:20:00 * Test Item Value Reference Range [...] COMMENTS: add to labs already done this a.m.[id number] 12:41:00* Test Item Value Reference Range Interpretation Comments GLUBED (test code = GLUBED) 267 mg/dL 74-106 H Performed by certified tucking machine operator at [facility] [id number] 12:14:00* Test Item Value Reference Range Interpretation Comments TROPONIN-I (test code = TROPI) <0.015 ng/mL 0-0.045 N COMMENTS TO CONTROL SYSTEMS TECHNICIAN: COLLECT 3 HOURS AFTER PREVIOUS [id number] 08:51:00* Test Item Value Reference Range Interpretation Comments TROPONIN-I (test code = TROPI) <0.015 ng/mL 0-0.045 N COMMENTS TO CONTROL SYSTEMS TECHNICIAN: COLLECT 3 HOURS AFTER PREVIOUS [id number] 06:05:00* Test Item Value Reference Range Interpretation Comments GLUBED (test code = GLUBED) 208 mg/dL 74-106 H [facility]~ BASIC METABOLIC [id number] 00:36:00* Test Item Value Reference Range Interpretation [...] code = CA) 8.7 mg/dL 8.5-10.1 N [id number] 00:36:00* Test Item Value Reference Range Interpretation Comments TROPONIN-I (test code = TROPI) <0.015 ng/mL 0-0.045 N PROTHROMBIN [id number] 00:28:00* Test Item Value Reference Range Interpretation [...] (2.5-3.5) IS PATIENT ON ANTICOAGULANTS? NTHROMBOPLASTIN TIME [id number] 00:28:00* Test Item Value Reference Range Interpretation Comments THROMBOPLASTIN TIME PARTIAL (test code = PTT) 37.4 seconds 25.0-36. 5 H IS PATIENT ON ANTICOAGULANTS? NBASIC METABOLIC [id number] 00:22:00* Test Item Value Reference Range Interpretation [...] CALCIUM (test code = CA) mg/dL 8.5-10.1 [id number] 00:22:00* Test Item Value Reference Range Interpretation Comments TROPONIN-I (test code = TROPI) ng/mL 0-0.045 CBC W/O [id number] 00:11:00* Test Item Value Reference Range Interpretation [...] fL 6.7-11.0 N - CT HEAD/BRAIN W/O [id number] 23:51:00 Name: ERIN SCHILLING [facility] : 1950 Age/S: 68 / F [address] [facility] Unit #: [id number] Loc: [place] [address] Phys: Tigre Rangel MD Acct: [id number] Dis Date: Status: REG ER PHONE #: [phone] Exam Date: 11/25/20182329 FAX #: [phone] Reason: headache dizzy afib EXAMS: CPT CODE: [id number] CT HEAD/BRAIN W/O CONT 98491 EXAM: - CT HEAD/BRAIN W/O CONT LOCATION: [...] 1 Signed Report (CONTINUED) Name: ERIN SCHILLING [facility] [place] : 1950 Age/S: 68 / F [address] [facility] Unit #: [id number] Loc: MIHIR [place] 7750 4 Phys: Tigre Rangel MD Acct: [id number] Dis Date: Status: REG ER PHONE #: [phone] Exam Date: 11/25/20182329 FAX #: [phone] Reason: headache dizzy afib EXAMS: CPT CODE: [id number] CT HEAD/BRAIN W/O CONT 61598 < Continued> at 2351 Reported and signed by: Ernie Lemon M.D. CC: Alaina Alonzo; Tigre Rangel MD Technologist:RT CUCO CTDI: DLP: Trnscb Date/Time: 11/25/2018 (7061) [email or web address] Orig Print D/T: S: 11/25/2018 (2061) PAGE 2 Signed Report - XR CHEST 1 [id number] 23:38:00 FAX: Alaina Ramos MD [phone] [place]: St: REG FAX: Tigre Rangel MD [phone] Name: ERIN SCHILLING [facility] : 1950 Age/S: 68/F [address] [facility] Unit #: [id number] Loc: [place] [address] Phys: Tigre Rangel MD Acct: [id number] Dis Date: Status: REG ER PHONE #: [phone] Exam Date: 11/25/2018 2332 FAX #: [phone] Reason: WEAKNESS EXAMS: CPT CODE: [id number] XR CHEST 1 V 47096 Location: T 18 CHEST X-RAY: PA frontal projection, one view, 11/25/18 CLINICAL HISTORY: Weakness, ER presentation COMPARISON EXAMS: 11/14/18 chest x-ray exam FINDINGS: Heart, lungs, and mediastinal structures are within normal limits. No pneumonia or active CHF. No evolving pleural-based finding. IMPRESSION: No acute finding at 9158 Reported and signed by: Adriana Dick M.D. CC: Alaina Alonzo; Tigre Rangel MD Technologist: Jeremiah Horn RT(R) Trnscrd Date/Time/By: 11/25/2018 (5879) : By: [email or web address] Orig Print D/T: S: 11/25/2018 (3910) PAGE 1 Signed Report - XR CHEST 1 [id number] 05:43:00 FAX: Alaina Ramos MD [phone] [place]: St: REG FAX: Jeannette Elias DO Name: ERIN SCHILLING [facility] : 1950 Age/S: 68/F [address] [facility] Unit #: [id number] Loc: MIHIR [place] [address] Phys: Jeannette Elias DO Acct: [id number] Dis Date: Status: REG ER PHONE #: [phone] Exam Date: 11/14/2018 0537 FAX #: [phone] Reason: CHEST PAIN EXAMS: CPT CODE: [id number] XR CHEST 1 V 75523 Dictation location: [facility]. CHEST, FRONTAL VIEW HISTORY: CHEST PAIN FINDINGS: Since 11/11/18, interstitial prominence likely related to pulmonary edema. The heart size is normal. The aorta is partially calcified. The bones are unremarkable. IMPRESSION: Mild pulmonary edema. at 0543 Reported and signed by: Irina Hernandez M.D. CC: Alaina Alonzo; Jeannette Elias DO Technologist: PIETRO TELLEZ JR Trnscrd Date/Time/By: 11/14/2018 (0543) : By: [email or web address] Orig Print D/T: S: 11/14/2018 (3011) PAGE 1 Signed Report BASIC METABOLIC [id number] 05:29:00* Test Item Value Reference Range Interpretation [...] CA) 8.8 mg/dL 8.5-10.1 N HEPATIC FUNCTION [id number] 05:29:00* Test Item Value Reference Range Interpretation [...] reference range due to change in reagent. [id number] 05:29:00* Test Item Value Reference Range Interpretation Comments LIPASE (test code = LIP) 63 U/L 73.0-393.0 L [id number] 05:29:00* Test Item Value Reference Range Interpretation Comments TROPONIN-I (test code = TROPI) <0.015 ng/mL 0-0.045 N PROTHROMBIN [id number] 05:22:00* Test Item Value Reference Range Interpretation [...] (2.5-3.5) IS PATIENT ON ANTICOAGULANTS? NTHROMBOPLASTIN TIME [id number] 05:22:00* Test Item Value Reference Range Interpretation Comments THROMBOPLASTIN TIME PARTIAL (test code = PTT) 44.8 seconds 25.0-36. 5 H IS PATIENT ON ANTICOAGULANTS? NBASIC METABOLIC [id number] 05:17:00* Test Item Value Reference Range Interpretation [...] code = CA) mg/dL 8.5-10.1 HEPATIC FUNCTION [id number] 05:17:00* Test Item Value Reference Range Interpretation [...] TOTAL (test code = ALKP) IUnit/L 45-117 [id number] 05:17:00* Test Item Value Reference Range Interpretation Comments LIPASE (test code = LIP) U/L 73.0-393.0 [id number] 05:17:00* Test Item Value Reference Range Interpretation Comments TROPONIN-I (test code = TROPI) ng/mL 0-0.045 CBC W/O [id number] 05:05:00* Test Item Value Reference Range Interpretation [...] code = MPV) 9.7 fL 6.7-11.0 N [id number] 16:53:00* Test Item Value Reference Range Interpretation Comments GLUBED (test code = GLUBED) 202 mg/dL 74-106 H Performed by certified tucking machine operator at [facility] PROTHROMBIN [id number] 12:45:00* Test Item Value Reference Range Interpretation [...] (2.5-3.5) IS PATIENT ON ANTICOAGULANTS? YLIST ANTICOAGULANTS [id number] 12:21:00* Test Item Value Reference Range Interpretation Comments GLUBED (test code = GLUBED) 168 mg/dL 74-106 H Performed by certified tucking machine operator at [facility] [id number] 08:41:00* Test Item Value Reference Range Interpretation Comments GLUBED (test code = GLUBED) 104 mg/dL 74-106 N Performed by certified tucking machine operator at [facility] [id number] 08:25:00* Test Item Value Reference Range Interpretation Comments GLUBED (test code = GLUBED) 112 mg/dL 74-106 H Performed by certified tucking machine operator at [facility] [id number] 21:24:00* Test Item Value Reference Range Interpretation Comments GLUBED (test code = GLUBED) 92 mg/dL 74-106 N [facility]~ [id number] 16:50:00* Test Item Value Reference Range Interpretation Comments GLUBED (test code = GLUBED) 189 mg/dL 74-106 H Performed by certified tucking machine operator at [facility] [id number] 14:47:00* Test Item Value Reference Range Interpretation Comments GLUBED (test code = GLUBED) 172 mg/dL 74-106 H Performed by certified tucking machine operator at [facility] [id number] 12:15:00* Test Item Value Reference Range Interpretation Comments GLUBED (test code = GLUBED) 141 mg/dL 74-106 H Performed by certified tucking machine operator at [facility] [id number] 08:25:00* Test Item Value Reference Range Interpretation Comments GLUBED (test code = GLUBED) 147 mg/dL 74-106 H Performed by certified tucking machine operator at [facility] PROTHROMBIN [id number] 06:09:00* Test Item Value Reference Range Interpretation [...] code = TROPI) <0.015 ng/mL 0-0.045 N [id number] 20:34:00* Test Item Value Reference Range Interpretation Comments GLUBED (test code = GLUBED) 136 mg/dL 74-106 H Performed by certified tucking machine operator at [facility] [id number] 13:12:00* Test Item Value Reference Range Interpretation Comments GLUBED (test code = GLUBED) 191 mg/dL 74-106 H Performed by certified tucking machine operator at [facility] [id number] 13:12:00* Test Item Value Reference Range Interpretation Comments GLUBED (test code = GLUBED) 94 mg/dL 74-106 N Performed by certified tucking machine operator at [facility] - PULM VENT PERF [id number] 11:41:00 FAX: Alaina Ramos MD [phone] [place]: B St: ADM FAX: Tigre Rangel MD [phone] Name: ERIN SCHILLING [facility] : 1950 Age/S: 68/F [address] [facility] Unit #: [id number] Loc: [id number] [place] [address] Phys: Tigre Rangel MD Acct: [id number] Dis Date: Status: ADM IN PHONE #: [phone] Exam Date: 11/11/2018 1050 FAX #: [phone] Reason: shortness of breath, elev d-dimer EXAMS: CPT CODE: [id number] PULM VENT PERF IMAG 64074 HISTORY: shortness of breath, elev d-dimer EXAM: [...] Technologist: Sara Sandy RT(N) Trnscrd Date/Time/By: 11/11/2018 (0786) : By: [email or web address] Orig Print D/T: S: 11/11/2018 (6668) PAGE 1 Signed Report [id number] 09:58:00* Test Item Value Reference Range Interpretation Comments TROPONIN-I (test code = TROPI) <0.015 ng/mL 0-0.045 N AG HEPAT B [id number] 08:55:00* Test Item Value Reference Range Interpretation Comments AG HEPAT B SURF (test code = HBSAG) Nonreactive Index Nonreactive BASIC METABOLIC [id number] 03:22:00* Test Item Value Reference Range Interpretation [...] CA) 8.4 mg/dL 8.5-10.1 L HEPATIC FUNCTION [id number] 03:22:00* Test Item Value Reference Range Interpretation [...] reference range due to change in reagent. [id number] 03:22:00* Test Item Value Reference Range Interpretation Comments LIPASE (test code = LIP) 65 U/L 73.0-393.0 L [id number] 03:22:00* Test Item Value Reference Range Interpretation Comments TROPONIN-I (test code = TROPI) <0.015 ng/mL 0-0.045 N PROTHROMBIN [id number] 03:16:00* Test Item Value Reference Range Interpretation [...] (2.5-3.5) IS PATIENT ON ANTICOAGULANTS? NTHROMBOPLASTIN TIME [id number] 03:16:00* Test Item Value Reference Range Interpretation Comments THROMBOPLASTIN TIME PARTIAL (test code = PTT) 37.8 seconds 25.0-36. 5 H IS PATIENT ON ANTICOAGULANTS? [id number] 03:16:00* Test Item Value Reference Range Interpretation Comments D-DIMER (test code = DDIMER) 986.00 ng/mLFEU 0-500 HH Results called to [id number] by NEELAGBright 11/11/18 0314Critical results verified and read back [...] - IS PATIENT ON ANTICOAGULANTS? NBASIC METABOLIC [id number] 03:16:00* Test Item Value Reference Range Interpretation [...] CA) 8.4 mg/dL 8.5-10.1 L HEPATIC FUNCTION [id number] 03:16:00* Test Item Value Reference Range Interpretation [...] reference range due to change in reagent. [id number] 03:16:00* Test Item Value Reference Range Interpretation Comments LIPASE (test code = LIP) 65 U/L 73.0-393.0 L [id number] 03:16:00* Test Item Value Reference Range Interpretation Comments TROPONIN-I (test code = TROPI) ng/mL 0-0.045 BASIC METABOLIC [id number] 03:11:00* Test Item Value Reference Range Interpretation [...] code = CA) mg/dL 8.5-10.1 HEPATIC FUNCTION [id number] 03:11:00* Test Item Value Reference Range Interpretation [...] TOTAL (test code = ALKP) IUnit/L 45-117 [id number] 03:11:00* Test Item Value Reference Range Interpretation Comments LIPASE (test code = LIP) U/L 73.0-393.0 [id number] 03:11:00* Test Item Value Reference Range Interpretation Comments TROPONIN-I (test code = TROPI) ng/mL 0-0.045 CBC W/O [id number] 03:02:00* Test Item Value Reference Range Interpretation [...] fL 6.7-11.0 N - XR CHEST 1 [id number] 02:28:00 FAX: Alaina Ramos MD [phone] [place]: B St: REG FAX: Tigre Rangel MD [phone] Name: ERIN SCHILLING [facility] : 1950 Age/S: 68/F [place] Unit #: [id number] Loc: MIHIR [place] [address] Phys: Tigre Rangel MD Acct: [id number] Dis Date: Status: REG ER PHONE #: [phone] Exam Date: 11/11/2018217 FAX #: [phone] Reason: CHEST PAIN EXAMS: CPT CODE: [id number] XR CHEST 1 V 78154 DICTATION LOCATION: H48 HISTORY: Female, 68 years [...] Alonzo; Tigre Rangel MD Technologist: Keyla Carter Trnscrd Date/Time/By: 11/11/2018 (0228) : By: [email or web address] Orig Print D/T: S: 11/11/2018 (0232) PAGE 1 Signed Report [id number] 11:22:00* Test Item Value Reference Range Interpretation Comments GLUBED (test code = GLUBED) 118 mg/dL 74-106 H Performed by certified tucking machine operator at [facility] PROTHROMBIN [id number] 08:36:00* Test Item Value Reference Range Interpretation [...] code = NRBC#) 0.00 K/mm3 0.0-0.1 N [id number] 06:06:00* Test Item Value Reference Range Interpretation Comments GLUBED (test code = GLUBED) 164 mg/dL 74-106 H Performed by certified tucking machine operator at [facility] [id number] 20:52:00* Test Item Value Reference Range Interpretation Comments GLUBED (test code = GLUBED) 144 mg/dL 74-106 H Performed by certified tucking machine operator at [facility] CBC W/O [id number] 11:39:00* Test Item Value Reference Range Interpretation [...] 9.1 fL 6.7-11.0 N ADD ONBASIC METABOLIC [id number] 11:34:00* Test Item Value Reference Range Interpretation [...] code = CA) 8.6 mg/dL 8.5-10.1 N [id number] 11:31:00* Test Item Value Reference Range Interpretation Comments GLUBED (test code = GLUBED) 160 mg/dL 74-106 H Performed by certified tucking machine operator at [facility] BASIC METABOLIC [id number] 11:31:00* Test Item Value Reference Range Interpretation [...] (test code = CA) mg/dL 8.5-10.1 PROTHROMBIN [id number] 07:55:00* Test Item Value Reference Range Interpretation [...] (2.5-3.5) IS PATIENT ON ANTICOAGULANTS? YLIST ANTICOAGULANTS [id number] 06:04:00* Test Item Value Reference Range Interpretation Comments GLUBED (test code = GLUBED) 164 mg/dL 74-106 H Performed by certified tucking machine operator at [facility] [id number] 23:26:00* Test Item Value Reference Range Interpretation Comments GLUBED (test code = GLUBED) 179 mg/dL 74-106 H Performed by certified tucking machine operator at [facility] [id number] 20:42:00* Test Item Value Reference Range Interpretation Comments GLUBED (test code = GLUBED) 98 mg/dL 74-106 N Performed by certified tucking machine operator at [facility] [id number] 20:07:00* Test Item Value Reference Range Interpretation Comments GLUBED (test code = GLUBED) 49 mg/dL 74-106 LL Per[facility] certified tucking machine [facility]~ [id number] 17:06:00* Test Item Value Reference Range Interpretation Comments GLUBED (test code = GLUBED) 174 mg/dL 74-106 H Performed by certified tucking machine operator at [facility] [id number] 11:26:00* Test Item Value Reference Range Interpretation Comments GLUBED (test code = GLUBED) 80 mg/dL 74-106 N Performed by certified tucking machine operator at [facility] CBC W/AUTO [id number] 06:22:00* Test Item Value Reference Range Interpretation [...] REQUIRED (test code = MDIFF) NO PROTHROMBIN [id number] 06:19:00* Test Item Value Reference Range Interpretation [...] (2.5-3.5) IS PATIENT ON ANTICOAGULANTS? YLIST ANTICOAGULANTS [id number] 06:13:00* Test Item Value Reference Range Interpretation Comments GLUBED (test code = GLUBED) 177 mg/dL 74-106 H Performed by certified tucking machine operator at [facility] [id number] 03:55:00* Test Item Value Reference Range Interpretation Comments GLUBED (test code = GLUBED) 104 mg/dL 74-106 N Performed by certified tucking machine operator at [facility] [id number] 20:49:00* Test Item Value Reference Range Interpretation Comments GLUBED (test code = GLUBED) 151 mg/dL 74-106 H Performed by certified tucking machine operator at [facility] [id number] 15:42:00* Test Item Value Reference Range Interpretation Comments GLUBED (test code = GLUBED) 138 mg/dL 74-106 H Performed by certified tucking machine operator at [facility] RENAL FUNCTION [id number] 15:21:00* Test Item Value Reference Range Interpretation [...] PHOS) 3.1 mg/dL 2.5-4.9 N RENAL FUNCTION [id number] 15:16:00* Test Item Value Reference Range Interpretation [...] code = PHOS) mg/dL 2.5-4.9 CBC W/AUTO [id number] 14:34:00* Test Item Value Reference Range Interpretation [...] code = NRBC#) 0.00 K/mm3 0.0-0.1 N [id number] 11:54:00* Test Item Value Reference Range Interpretation Comments GLUBED (test code = GLUBED) 97 mg/dL 74-106 N Performed by certified tucking machine operator at [facility] PROTHROMBIN [id number] 07:34:00* Test Item Value Reference Range Interpretation [...] (2.5-3.5) IS PATIENT ON ANTICOAGULANTS? YLIST ANTICOAGULANTS [id number] 06:34:00* Test Item Value Reference Range Interpretation Comments GLUBED (test code = GLUBED) 170 mg/dL 74-106 H Performed by certified tucking machine operator at [facility] [id number] 20:00:00* Test Item Value Reference Range Interpretation Comments GLUBED (test code = GLUBED) 102 mg/dL 74-106 N Performed by certified tucking machine operator at [facility] [id number] 16:47:00* Test Item Value Reference Range Interpretation Comments GLUBED (test code = GLUBED) 90 mg/dL 74-106 N Performed by certified tucking machine operator at [facility] [id number] 11:59:00* Test Item Value Reference Range Interpretation Comments GLUBED (test code = GLUBED) 143 mg/dL 74-106 H Performed by certified tucking machine operator at [facility] [id number] 11:19:00* Test Item Value Reference Range Interpretation Comments GLUBED (test code = GLUBED) 124 mg/dL 74-106 H Performed by certified tucking machine operator at [facility] PROTHROMBIN [id number] 07:24:00* Test Item Value Reference Range Interpretation [...] (2.5-3.5) IS PATIENT ON ANTICOAGULANTS? YLIST ANTICOAGULANTS [id number] 20:07:00* Test Item Value Reference Range Interpretation Comments GLUBED (test code = GLUBED) 145 mg/dL 74-106 H Performed by certified tucking machine operator at [facility] [id number] 18:30:00* Test Item Value Reference Range Interpretation Comments GLUBED (test code = GLUBED) 143 mg/dL 74-106 H Performed by certified tucking machine operator at [facility] [id number] 13:10:00* Test Item Value Reference Range Interpretation Comments PHOSPHORUS (test code = PHOS) 3.3 mg/dL 2.5-4.9 N BASIC METABOLIC [id number] 11:45:00* Test Item Value Reference Range Interpretation [...] = CA) 8.3 mg/dL 8.5-10.1 L PROTHROMBIN [id number] 11:41:00* Test Item Value Reference Range Interpretation [...] IS PATIENT ON ANTICOAGULANTS? YLIST ANTICOAGULANTS COUMADIN [id number] 11:13:00* Test Item Value Reference Range Interpretation Comments GLUBED (test code = GLUBED) 154 mg/dL 74-106 H Performed by certified tucking machine operator at [facility] CBC W/AUTO [id number] 11:10:00* Test Item Value Reference Range Interpretation [...] code = NRBC#) 0.00 K/mm3 0.0-0.1 N [id number] 06:25:00* Test Item Value Reference Range Interpretation Comments GLUBED (test code = GLUBED) 179 mg/dL 74-106 H Performed by certified tucking machine operator at [facility] [id number] 20:11:00* Test Item Value Reference Range Interpretation Comments GLUBED (test code = GLUBED) 162 mg/dL 74-106 H Performed by certified tucking machine operator at [facility] [id number] 16:30:00* Test Item Value Reference Range Interpretation Comments GLUBED (test code = GLUBED) 171 mg/dL 74-106 H Performed by certified tucking machine operator at [facility] URINALYSIS [id number] 14:42:00* Test Item Value Reference Range Interpretation [...] per LPF NONE A Urine Source? CatheterURINALYSIS [id number] 14:26:00* Test Item Value Reference Range Interpretation [...] = BACU) per HPF NONE Urine Source? [id number] 11:40:00* Test Item Value Reference Range Interpretation Comments GLUBED (test code = GLUBED) 141 mg/dL 74-106 H Performed by certified tucking machine operator at [facility] PROTHROMBIN [id number] 07:30:00* Test Item Value Reference Range Interpretation [...] (2.5-3.5) IS PATIENT ON ANTICOAGULANTS? YLIST ANTICOAGULANTS [id number] 06:13:00* Test Item Value Reference Range Interpretation Comments GLUBED (test code = GLUBED) 158 mg/dL 74-106 H Performed by certified tucking machine operator at [facility] [id number] 22:16:00* Test Item Value Reference Range Interpretation Comments GLUBED (test code = GLUBED) 82 mg/dL 74-106 N Performed by certified tucking machine operator at [facility] [id number] 21:24:00* Test Item Value Reference Range Interpretation Comments GLUBED (test code = GLUBED) 68 mg/dL 74-106 L Performed by certified tucking machine operator at [facility] [id number] 20:28:00* Test Item Value Reference Range Interpretation Comments GLUBED (test code = GLUBED) 51 mg/dL 74-106 L Performed by certified tucking machine operator at [facility] [id number] 20:28:00* Test Item Value Reference Range Interpretation Comments GLUBED (test code = GLUBED) 51 mg/dL 74-106 L Performed by certified tucking machine operator at [facility] [id number] 17:35:00* Test Item Value Reference Range Interpretation Comments GLUBED (test code = GLUBED) 74 mg/dL 74-106 N Performed by certified tucking machine operator at [facility] [id number] 11:55:00* Test Item Value Reference Range Interpretation Comments GLUBED (test code = GLUBED) 216 mg/dL 74-106 H Performed by certified tucking machine operator at [facility] PROTHROMBIN [id number] 07:20:00* Test Item Value Reference Range Interpretation [...] (2.5-3.5) IS PATIENT ON ANTICOAGULANTS? YLIST ANTICOAGULANTS [id number] 06:02:00* Test Item Value Reference Range Interpretation Comments GLUBED (test code = GLUBED) 209 mg/dL 74-106 H Performed by certified tucking machine operator at [facility] [id number] 20:24:00* Test Item Value Reference Range Interpretation Comments GLUBED (test code = GLUBED) 176 mg/dL 74-106 H Performed by certified tucking machine operator at [facility] [id number] 17:35:00* Test Item Value Reference Range Interpretation Comments GLUBED (test code = GLUBED) 102 mg/dL 74-106 N Performed by certified tucking machine operator at [facility] [id number] 11:22:00* Test Item Value Reference Range Interpretation Comments GLUBED (test code = GLUBED) 194 mg/dL 74-106 H Performed by certified tucking machine operator at [facility] PROCALCITONIN (PCT)2018-09-23 07:51:00* Test Item Value Reference [...] taking into account the patients history. PROTHROMBIN [id number] 07:16:00* Test Item Value Reference Range Interpretation [...] (2.5-3.5) IS PATIENT ON ANTICOAGULANTS? YLIST ANTICOAGULANTS [id number] 06:50:00* Test Item Value Reference Range Interpretation Comments GLUBED (test code = GLUBED) 151 mg/dL 74-106 H Performed by certified tucking machine operator at [facility] BASIC METABOLIC [id number] 06:23:00* Test Item Value Reference Range Interpretation [...] CA) 8.3 mg/dL 8.5-10.1 L CBC W/O [id number] 05:41:00* Test Item Value Reference Range Interpretation [...] code = MPV) 9.2 fL 6.7-11.0 N [id number] 20:10:00* Test Item Value Reference Range Interpretation Comments GLUBED (test code = GLUBED) 79 mg/dL 74-106 N Performed by certified tucking machine operator at [facility] [id number] 16:13:00* Test Item Value Reference Range Interpretation Comments GLUBED (test code = GLUBED) 194 mg/dL 74-106 H Performed by certified tucking machine operator at [facility] PROCALCITONIN (PCT)2018-09-22 12:19:00* Test Item Value Reference [...] interpreted taking into account the patients history. [id number] 11:22:00* Test Item Value Reference Range Interpretation Comments GLUBED (test code = GLUBED) 205 mg/dL 74-106 H Performed by certified tucking machine operator at [facility] CBC W/AUTO [id number] 10:54:00* Test Item Value Reference Range Interpretation [...] REQUIRED (test code = MDIFF) NO PROTHROMBIN [id number] 07:42:00* Test Item Value Reference Range Interpretation [...] (2.5-3.5) IS PATIENT ON ANTICOAGULANTS? YLIST ANTICOAGULANTS [id number] 06:35:00* Test Item Value Reference Range Interpretation Comments GLUBED (test code = GLUBED) 244 mg/dL 74-106 H Performed by certified tucking machine operator at [facility] [id number] 20:55:00* Test Item Value Reference Range Interpretation Comments GLUBED (test code = GLUBED) 194 mg/dL 74-106 H Performed by certified tucking machine operator at [facility] [id number] 18:47:00* Test Item Value Reference Range Interpretation Comments GLUBED (test code = GLUBED) 187 mg/dL 74-106 H Performed by certified tucking machine operator at [facility] [id number] 11:41:00* Test Item Value Reference Range Interpretation Comments GLUBED (test code = GLUBED) 117 mg/dL 74-106 H Performed by certified tucking machine operator at [facility] - XR SHOULDER 2 + V [id number] 09:55:00 FAX: Alaina Ramos MD [phone] [place]: B St: ADM FAX: Seth Mccord MD [phone] FAX: Jaziel Hughes Fo Name: ERIN SCHILLING [facility] : 1950 Age/S: 67/F [address] Unit #: [id number] Loc: V.3091 [place] [address] Phys: Seth Benito MD Acct: [id number] Dis Date: Status: ADM IN ONE #: [phone] Exam Date: 09/21/2018828 FAX #: [phone] Reason: shoulder pain EXAMS: CPT CODE: [id number] XR SHOULDER 2 + V LT [address]222 HISTORY: Shoul monique pain. COMPARISON: X-ray from [...] and sclerosis of the humeral head. at 0955 Reported and signed by: Jamie Lovell M.D. CC: Alaina Alonzo; Seth Benito MD; Jaziel Alvarado DO Technologist: Nadeen DashTYokasta(R); Loren Ulloa RT(R) Trnscrd Date/Time/By: 09/21/2018 (0955) : By: [email or web address] Orig Print D/T: S: 09/21/2018 (0958) PAGE 1 Signed Report BASIC METABOLIC [id number] 08:24:00* Test Item Value Reference Range Interpretation [...] CA) 8.4 mg/dL 8.5-10.1 L BASIC METABOLIC [id number] 07:45:00* Test Item Value Reference Range Interpretation [...] = CA) 8.4 mg/dL 8.5-10.1 L PROTHROMBIN [id number] 06:39:00* Test Item Value Reference Range Interpretation [...] DIFF REQUIRED (test code = MDIFF) NO [id number] 05:56:00* Test Item Value Reference Range Interpretation Comments GLUBED (test code = GLUBED) 309 mg/dL 74-106 H Performed by certified tucking machine operator at [facility] [id number] 21:08:00* Test Item Value Reference Range Interpretation Comments GLUBED (test code = GLUBED) 95 mg/dL 74-106 N Performed by certified tucking machine operator at [facility] [id number] 17:23:00* Test Item Value Reference Range Interpretation Comments GLUBED (test code = GLUBED) 117 mg/dL 74-106 H Performed by certified tucking machine operator at [facility] - XR ABDOMEN AP 1 [id number] 12:27:00 FAX: Alaina Ramos MD [phone] [place]: St: [facility] FAX: Aisha Schuler [phone] FAX: Jaziel Hughes Fo Name: ERIN SCHILLING [facility] : 1950 Age/S: 67/F [address] Unit #: [id number] Loc: V.3091 Jagdish, MIHIR [address] Phys: Aisha Schuler MD Acct: [id number] Dis Date: Status: ADM IN ONE #: [phone] Exam Date: 09/20/2018 0935 FAX #: [phone] Reason: nausea, vomiting EXAMS: CPT CODE: [id number] XR ABDOMEN AP 1 V 55986 HISTORY: Nausea and vomiting. COMPARISON: CT abdomen and pelvis from September 03, 2018. No bowel obstruction. Right colostomy seen on the CT scan is not well seen on this examination. Constipation. No pathologic calcifications. Patient is post cholecystectomy. DJD of the lumbar spine. IMPRESSION: No bowel obstruction. Constipation. at 1514 Reported and signed by: Jamie Lovell M.D. CC: Alaina Alonzo; Aisha Schuler MD; Jaziel Alvarado DO Technologist: PIETRO DENNIS JR Trnscrd Date/Time/By: 09/20/2018 (2375) : By: [email or web address] Orig Print D/T: S: 09/20/2018 (8547) PAGE 1 Signed Report [id number] 11:58:00* Test Item Value Reference Range Interpretation Comments GLUBED (test code = GLUBED) 187 mg/dL 74-106 H Performed by certified tucking machine operator at [facility] BASIC METABOLIC [id number] 06:52:00* Test Item Value Reference Range Interpretation [...] code = CA) 8.1 mg/dL 8.5-10.1 L [id number] 06:31:00* Test Item Value Reference Range Interpretation Comments GLUBED (test code = GLUBED) 136 mg/dL 74-106 H Performed by certified tucking machine operator at [facility] BASIC METABOLIC [id number] 06:24:00* Test Item Value Reference Range Interpretation [...] (test code = CA) mg/dL 8.5-10.1 PROTHROMBIN [id number] 06:10:00* Test Item Value Reference Range Interpretation [...] DIFF REQUIRED (test code = MDIFF) NO [id number] 20:40:00* Test Item Value Reference Range Interpretation Comments GLUBED (test code = GLUBED) 154 mg/dL 74-106 H Performed by certified tucking machine operator at [facility] [id number] 18:12:00* Test Item Value Reference Range Interpretation Comments GLUBED (test code = GLUBED) 114 mg/dL 74-106 H Performed by certified tucking machine operator at [facility] - NM GASTRIC [id number] 14:39:00 FAX: Alaina Ramos MD [phone] [place]: B St: ADM FAX: Jaziel Hughes Fo FAX: aPnda Avalos [phone] Name: ERIN SCHILLING [facility] : 1950 Age/S: 67/F [address] Unit #: [id number] Loc: VYokasta3091 Jagdish MIHIR [address] Phys: Panda Ross MD Acct: [id number] Dis Date: Status: ADM IN ONE #: [phone] Exam Date: 09/18/2018 1230 FAX #: [phone] Reason: vomiting EXAMS: CPT CODE: [id number] NM GASTRIC EMPTYING [address] REASON FOR EXA M: vomiting Exam Order [...] Signed by Torito Macias on 09/19/2018 at 1439 Reported and signed by: Miguel Macias M.D. CC: Alaina Alonzo; Jaziel Alvaradog DO; Panda Ross MD Technologist: Sara Sandy RT(N) Trnscrd Date/Time/By: 09/19/2018 (7037) : By: swetha WAGNERL Orig Print D/T: S: 09/19/2018 (0885) PAGE 1 Signed Report GLUBED 2018-09-19 12:58:00* Test Item Value Reference Range Interpretation Comments GLUBED (test code = GLUBED) 151 mg/dL 74-106 H Performed by certified tucking machine operator at [facility] CBC W/AUTO [id number] 12:09:00* Test Item Value Reference Range Interpretation [...] (test code = MDIFF) NO RENAL FUNCTION [id number] 10:34:00* Test Item Value Reference Range Interpretation [...] PHOS) 4.8 mg/dL 2.5-4.9 N RENAL FUNCTION [id number] 10:30:00* Test Item Value Reference Range Interpretation [...] PHOSPHORUS (test code = PHOS) mg/dL 2.5-4.9 [id number] 07:20:00* Test Item Value Reference Range Interpretation Comments PHOSPHORUS (test code = PHOS) 4.6 mg/dL 2.5-4.9 N PROTHROMBIN [id number] 07:06:00* Test Item Value Reference Range Interpretation [...] (2.5-3.5) IS PATIENT ON ANTICOAGULANTS? YLIST ANTICOAGULANTS [id number] 06:40:00* Test Item Value Reference Range Interpretation Comments GLUBED (test code = GLUBED) 119 mg/dL 74-106 H Performed by certified tucking machine operator at [facility] [id number] 20:49:00* Test Item Value Reference Range Interpretation Comments GLUBED (test code = GLUBED) 146 mg/dL 74-106 H Performed by certified tucking machine operator at [facility] [id number] 16:08:00* Test Item Value Reference Range Interpretation Comments GLUBED (test code = GLUBED) 120 mg/dL 74-106 H Performed by certified tucking machine operator at [facility] [id number] 11:08:00* Test Item Value Reference Range Interpretation Comments GLUBED (test code = GLUBED) 176 mg/dL 74-106 H Performed by certified tucking machine operator at [facility] PROTHROMBIN [id number] 08:45:00* Test Item Value Reference Range Interpretation [...] (2.5-3.5) IS PATIENT ON ANTICOAGULANTS? YLIST ANTICOAGULANTS TONYADIN ARTIE PERKINS SI - CALLED TWICE LEFT HER PHONE AT [employer] & COULDNT FIND HER ON FLOOR. V.LAB.RP1 09/18/[id number] 06:31:00* Test Item Value Reference Range Interpretation Comments GLUBED (test code = GLUBED) 136 mg/dL 74-106 H Performed by certified tucking machine operator at [facility] [id number] 20:46:00* Test Item Value Reference Range Interpretation Comments GLUBED (test code = GLUBED) 167 mg/dL 74-106 H Performed by certified tucking machine operator at [facility] - CT HEAD/BRAIN W/O [id number] 20:46:00 Name: ERIN SCHILLING [facility] : 1950 Age/S: 67 / F [address] [facility] Unit #: [id number] Loc: MIHIR [place] [address] Phys: Aisha Schuler MD Acct: [id number] Dis Date: Status: ADM IN PHONE #: [phone] Exam Date: 09/17/20182039 FAX #: [phone] Reason: dizziness EXAMS: CPT CODE: [id number] CT HEAD/BRAIN W/O CONT 20490 REASON FOR EXAM: dizziness EXAM ORDER DATE: 09/17/2018 5:04 PM Ordering M.Bree: Aisha Schuler MD PROCEDURE: - CT HEAD/BRAIN [...] Alonzo; Aisha Schuler MD; Jaziel Alvarado DO Technologist:RT Leo(R)(CT) CTDI: DLP: Trnscb Date/Time: 09/17/2018 (2045) t.[email or web address] Orig Print D/T: S: 09/17/2018 (2048) PAGE 1 Signed Report [id number] 16:32:00* Test Item Value Reference Range Interpretation Comments GLUBED (test code = GLUBED) 173 mg/dL 74-106 H Performed by certified tucking machine operator at [facility] [id number] 11:19:00* Test Item Value Reference Range Interpretation Comments GLUBED (test code = GLUBED) 191 mg/dL 74-106 H Performed by certified tucking machine operator at [facility] [id number] 06:17:00* Test Item Value Reference Range Interpretation Comments GLUBED (test code = GLUBED) 216 mg/dL 74-106 H Performed by certified tucking machine operator at [facility] PROTHROMBIN [id number] 06:16:00* Test Item Value Reference Range Interpretation [...] (2.5-3.5) IS PATIENT ON ANTICOAGULANTS? YLIST ANTICOAGULANTS [id number] 20:40:00* Test Item Value Reference Range Interpretation Comments GLUBED (test code = GLUBED) 122 mg/dL 74-106 H Performed by certified tucking machine operator at [facility] [id number] 18:29:00* Test Item Value Reference Range Interpretation Comments GLUBED (test code = GLUBED) 151 mg/dL 74-106 H Performed by certified tucking machine operator at [facility] [id number] 11:38:00* Test Item Value Reference Range Interpretation Comments GLUBED (test code = GLUBED) 154 mg/dL 74-106 H Performed by certified tucking machine operator at [facility] BASIC METABOLIC [id number] 06:35:00* Test Item Value Reference Range Interpretation [...] CA) 8.3 mg/dL 8.5-10.1 L BASIC METABOLIC [id number] 06:29:00* Test Item Value Reference Range Interpretation [...] (test code = CA) mg/dL 8.5-10.1 PROTHROMBIN [id number] 06:25:00* Test Item Value Reference Range Interpretation [...] (2.5-3.5) IS PATIENT ON ANTICOAGULANTS? YLIST ANTICOAGULANTS [id number] 06:16:00* Test Item Value Reference Range Interpretation Comments GLUBED (test code = GLUBED) 129 mg/dL 74-106 H Performed by certified tucking machine operator at [facility] CBC W/O [id number] 06:08:00* Test Item Value Reference Range Interpretation [...] code = MPV) 9.1 fL 6.7-11.0 N [id number] 20:35:00* Test Item Value Reference Range Interpretation Comments GLUBED (test code = GLUBED) 151 mg/dL 74-106 H Performed by certified tucking machine operator at [facility] [id number] 18:38:00* Test Item Value Reference Range Interpretation Comments GLYCOSYLATED HEMOGLOBIN (HA1C) (test code = GLYHGB) 8.8 % HbA1 4. 8-6.0 H ESTIMATED AVERAGE GLUCOSE (test code = EAG) 206 MG/DL T4 [id number] 18:38:00* Test Item Value Reference Range Interpretation Comments T4 FREE (test code = T4F) 1.39 ng/dL 0.76-1.46 N THYROID STIMULATING [id number] 18:38:00* Test Item Value Reference Range Interpretation Comments THYROID STIMULATING HORMONE (test code = TSH) 4.330 uIU/mL 0.36-3.7 4 H TSH REFERENCE RANGES: EUTHYROID: 0.35 - 4.3 mIU/mL HYPO : > 5.5 mIU/mL HYPER : < 0.35 mIU/mL [id number] 16:37:00* Test Item Value Reference Range Interpretation Comments GLUBED (test code = GLUBED) 266 mg/dL 74-106 H [facility]~ [id number] 11:25:00* Test Item Value Reference Range Interpretation Comments GLUBED (test code = GLUBED) 193 mg/dL 74-106 H [facility] tucking machine [facility]~ PROTHROMBIN [id number] 07:42:00* Test Item Value Reference Range Interpretation [...] (2.5-3.5) IS PATIENT ON ANTICOAGULANTS? YLIST ANTICOAGULANTS [id number] 06:43:00* Test Item Value Reference Range Interpretation Comments GLUBED (test code = GLUBED) 221 mg/dL 74-106 H Performed by certified tucking machine operator at [facility] PROTHROMBIN [id number] 22:48:00* Test Item Value Reference Range Interpretation [...] (2.5-3.5) IS PATIENT ON ANTICOAGULANTS? YLIST ANTICOAGULANTS [id number] 21:06:00* Test Item Value Reference Range Interpretation Comments GLUBED (test code = GLUBED) 176 mg/dL 74-106 H Performed by certified tucking machine operator at [facility] [id number] 16:21:00* Test Item Value Reference Range Interpretation Comments GLUBED (test code = GLUBED) 234 mg/dL 74-106 H Performed by certified tucking machine operator at [facility] BASIC METABOLIC [id number] 11:35:00* Test Item Value Reference Range Interpretation [...] 8.4 mg/dL 8.5-10.1 L 09/14/18 1004BASIC METABOLIC [id number] 11:31:00* Test Item Value Reference Range Interpretation [...] (test code = CA) mg/dL 8.5-10.1 09/14/18 [id number] 11:15:00* Test Item Value Reference Range Interpretation Comments GLUBED (test code = GLUBED) 207 mg/dL 74-106 H Performed by certified tucking machine operator at [facility] CBC W/AUTO [id number] 11:15:00* Test Item Value Reference Range Interpretation [...] DIFF REQUIRED (test code = MDIFF) [place] [id number] 07:41:00* Test Item Value Reference Range Interpretation Comments GLUBED (test code = GLUBED) 254 mg/dL 74-106 H Performed by certified tucking machine operator at [facility] [id number] 21:20:00* Test Item Value Reference Range Interpretation Comments GLUBED (test code = GLUBED) 139 mg/dL 74-106 H Performed by certified tucking machine operator at [facility] [id number] 16:55:00* Test Item Value Reference Range Interpretation Comments GLUBED (test code = GLUBED) 217 mg/dL 74-106 H Performed by certified tucking machine operator at [facility] [id number] 12:18:00* Test Item Value Reference Range Interpretation Comments GLUBED (test code = GLUBED) 311 mg/dL 74-106 H Performed by certified tucking machine operator at [facility] PROTHROMBIN [id number] 09:02:00* Test Item Value Reference Range Interpretation [...] INR) 5.1 0.8-1.2 HH Results called to [id number] by MIKI 09/09/18 0754Critical results verified and [...] (2.5-3.5) IS PATIENT ON ANTICOAGULANTS? YLIST ANTICOAGULANTS [id number] 06:04:00* Test Item Value Reference Range Interpretation Comments GLUBED (test code = GLUBED) 171 mg/dL 74-106 H Performed by certified tucking machine operator at [facility] AB HEPATITIS B [id number] 04:09:00* Test Item Value Reference Range Interpretation Comments AB HEPATITIS B SURFACE (test code = HBSAB) Non Reactive () Non Reactive: Inconsistent with immunity, less than 10 mIU/mL Reactive: Consistent with immunity, greater than 9.9 mIU/mLPerformed At: [facility] [id number] Mack MD Ph:[phone] [id number] 02:46:00* Test Item Value Reference Range Interpretation Comments GLUBED (test code = GLUBED) 216 mg/dL 74-106 H Performed by certified tucking machine operator at [facility] [id number] 20:49:00* Test Item Value Reference Range Interpretation Comments GLUBED (test code = GLUBED) 206 mg/dL 74-106 H Performed by certified tucking machine operator at [facility] ANTINUCLEAR ANTIBODIES [id number] 13:10:00* Test Item Value Reference Range Interpretation Comments ROXY SCREEN (test code = ANASCR) Negative Negative Performed At: [facility] [address] [id number] Mack MD Ph:[phone] QNS RECOLLECT FOR SENDOUTSV.LAB.AS4 09/07/18 1356ACUTE HEPATITIS [id number] 13:10:00* Test Item Value Reference Range Interpretation [...] with a HCV Nucleic Acid Amplification test (997574).Performed At: [facility] [id number] Mack MD Ph:[phone] QNS RECOLLECT FOR SENDOUTSV.LAB.AS4 09/07/18 1356AB [id number] 13:10:00* Test Item Value Reference Range Interpretation Comments AB MITOCHONDRIAL (test code = MITOCHAB) EIA <1.0 QNS RECOLLECT FOR SENDOUTSV.LAB.[facility] 09/07/18 1356AB ANTI-SMOOTH [id number] 13:10:00* Test Item Value Reference Range Interpretation Comments AB ANTI-SMOOTH MUSCLE (test code = SMOOTHAB) 10 Units 0-19 Negative 0 - 19 Weak positive 20 - 30 Moderate to strong positive >30 Actin Antibodies are found in 52-85% of patients with autoimmune hepatitis or chronic active hepatitis and in 22% of patients with primary biliary cirrhosis. QNS RECOLLECT FOR SENDOUTSV.LAB.[facility] 09/07/18 1356ANTINUCLEAR ANTIBODIES TITER 2018-09-12 13:10:00* Test Item Value Reference Range Interpretation Comments ROXY SCREEN (test code = ANASCR) Negative Negative Performed At: [facility] [address] [id number] Kyle L MD Ph:[phone] QNS RECOLLECT FOR SENDOUTSV.LAB.[facility] 09/07/18 1356ACUTE HEPATITIS [id number] 13:10:00* Test Item Value Reference Range Interpretation [...] with a HCV Nucleic Acid Amplification test (040376).Performed At: [facility] [address] [id number] Mack MD Ph:[phone] QNS RECOLLECT FOR SENDOUTSV.LAB.[facility] 09/07/18 1356AB [id number] 13:10:00* Test Item Value Reference Range Interpretation Comments AB MITOCHONDRIAL (test code = MITOCHAB) <20.0 Units 0.0-20.0 Negative 0.0 - 20.0 Equivocal 20.1 - 24.9 Positive >24.9Mitochondrial (M2) Antibodies are found in 90-96% ofpatients with primary biliary cirrhosis.Performed At: [facility] [place], [place] [id number] Sanjai MD Ph:[phone] QNS RECOLLECT FOR SENDOUTSV.LAB.AS4 09/07/18 1356AB ANTI-SMOOTH [id number] 13:10:00* Test Item Value Reference Range Interpretation Comments AB ANTI-SMOOTH MUSCLE (test code = SMOOTHAB) 10 Units 0-19 Negative 0 - 19 Weak positive 20 - 30 Moderate to strong positive >30 Actin Antibodies are found in 52-85% of patients with autoimmune hepatitis or chronic active hepatitis and in 22% of patients with primary biliary cirrhosis. QNS RECOLLECT FOR SENDOUTSV.LAB.AS4 09/07/18 [id number] 12:27:00* Test Item Value Reference Range Interpretation Comments GLUBED (test code = GLUBED) 227 mg/dL 74-106 H [facility]~ [id number] 06:30:00* Test Item Value Reference Range Interpretation Comments GLUBED (test code = GLUBED) 212 mg/dL 74-106 H Performed by certified tucking machine operator at [facility] COMPREHENSIVE METABOLIC [id number] 05:50:00* Test Item Value Reference Range Interpretation [...] due to change in reagent. COMPREHENSIVE METABOLIC [id number] 05:08:00* Test Item Value Reference Range Interpretation [...] (test code = ALKP) IUnit/L 45-117 PROTHROMBIN [id number] 04:53:00* Test Item Value Reference Range Interpretation [...] (2.5-3.5) IS PATIENT ON ANTICOAGULANTS? YLIST ANTICOAGULANTS [id number] 21:43:00* Test Item Value Reference Range Interpretation Comments GLUBED (test code = GLUBED) 190 mg/dL 74-106 H Performed by certified tucking machine operator at [facility] [id number] 17:26:00* Test Item Value Reference Range Interpretation Comments TROPONIN-I (test code = TROPI) <0.015 ng/mL 0-0.045 N [id number] 16:59:00* Test Item Value Reference Range Interpretation Comments GLUBED (test code = GLUBED) 244 mg/dL 74-106 H Performed by certified tucking machine operator at [facility] - XR CHEST 1 [id number] 16:25:00 FAX: Alaina Ramos MD [phone] [place]: St: ADM FAX: Tai Florez MD [phone] Name: ERIN SCHILLING [facility] : 1950 Age/S: 67/F [address] Unit #: [id number] Loc: V.2041 MIH[place] [address] Phys: Tai Florez MD Acct: [id number] Dis Date: Status: ADM IN PHONE #: [phone] Exam Date: 09/11/2018 1612 FAX #: [phone] Reason: CHEST PAIN EXAMS: CPT CODE: [id number] XR CHEST 1 V 35390 EXAM: Chest x-ray, one view; INFORMATION: Chest pain; IMPRESSION: Compared with a recent study from September 06, 2018, the heart is increased in size; it is slightly enlarged. There also slightly increased vascular markings consistent with mild left heart failure. at 7478 Reported and signed by: Sudeep Mattson M.D. CC: Alaina Alonzo; Tai Florez MD Technologist: Leigh Ann Ruelas) Trnscrd Date/Time/By: (1811) : By: Sailaja Orig Print D/T: S: 09/11/2018 (4798) PAGE 1 Signed Report HEPATIC FUNCTION [id number] 14:53:00* Test Item Value Reference Range Interpretation [...] reference range due to change in reagent. [id number] 12:18:00* Test Item Value Reference Range Interpretation Comments GLUBED (test code = GLUBED) 202 mg/dL 74-106 H Performed by certified tucking machine operator at [facility] PROTHROMBIN [id number] 07:35:00* Test Item Value Reference Range Interpretation [...] MPV) 9.8 fL 6.7-11.0 N BASIC METABOLIC [id number] 06:42:00* Test Item Value Reference Range Interpretation [...] CA) 8.5 mg/dL 8.5-10.1 N BASIC METABOLIC [id number] 06:37:00* Test Item Value Reference Range Interpretation [...] CALCIUM (test code = CA) mg/dL 8.5-10.1 [id number] 06:15:00* Test Item Value Reference Range Interpretation Comments GLUBED (test code = GLUBED) 166 mg/dL 74-106 H Performed by certified tucking machine operator at [facility] [id number] 21:02:00* Test Item Value Reference Range Interpretation Comments GLUBED (test code = GLUBED) 169 mg/dL 74-106 H Performed by certified tucking machine operator at [facility] [id number] 18:23:00* Test Item Value Reference Range Interpretation Comments GLUBED (test code = GLUBED) 219 mg/dL 74-106 H Performed by certified tucking machine operator at [facility] PROTHROMBIN [id number] 07:03:00* Test Item Value Reference Range Interpretation [...] (2.5-3.5) IS PATIENT ON ANTICOAGULANTS? YLIST ANTICOAGULANTS [id number] 06:31:00* Test Item Value Reference Range Interpretation Comments GLUBED (test code = GLUBED) 209 mg/dL 74-106 H Performed by certified tucking machine operator at [facility] [id number] 22:06:00* Test Item Value Reference Range Interpretation Comments GLUBED (test code = GLUBED) 200 mg/dL 74-106 H Performed by certified tucking machine operator at [facility] CBC W/MANUAL [id number] 11:28:00* Test Item Value Reference Range Interpretation [...] code = IMMAT) 0 % 0-0 N [id number] 11:17:00* Test Item Value Reference Range Interpretation Comments GLUBED (test code = GLUBED) 216 mg/dL 74-106 H Performed by certified tucking machine operator at [facility] ANTINUCLEAR ANTIBODIES [id number] 08:18:00* Test Item Value Reference Range Interpretation Comments ROXY SCREEN (test code = ANASCR) Negative Negative Performed At: [facility] [address] [id number] Mack MD Ph:[phone] QNS RECOLLECT FOR SENDOUTSV.LAB.[facility] 09/07/18 1356ACUTE HEPATITIS [id number] 08:18:00* Test Item Value Reference Range Interpretation [...] with a HCV Nucleic Acid Amplification test (335786).Performed At: [facility] [address] [id number] Mack MD Ph:[phone] QNS RECOLLECT FOR SENDOUTSV.LAB.[facility] 09/07/18 1356AB [id number] 08:18:00* Test Item Value Reference Range Interpretation Comments AB MITOCHONDRIAL (test code = MITOCHAB) EIA <1.0 QNS RECOLLECT FOR SENDOUTSV.LAB.[facility] 09/07/18 1356AB ANTI-SMOOTH [id number] 08:18:00* Test Item Value Reference Range Interpretation Comments AB ANTI-SMOOTH MUSCLE (test code = SMOOTHAB) Units QNS RECOLLECT FOR SENDOUTSV.LAB.[facility] 09/07/18 1356COMPREHENSIVE METABOLIC PANEL 2018-09-09 07:57:00* [...] range due to change in reagent. PROTHROMBIN [id number] 07:55:00* Test Item Value Reference Range Interpretation Comments PROTHROMBIN TIME PATIENT (test code = PTP) 60.7 seconds 9.0-14.0 H INTERNATIONAL NORMAL RATIO (test code = INR) 5.1 0.8-1.2 Results called to [id number] by MIKI 09/09/18 0754Critical results verified and [...] MORPHOLOGY (test code = PLTMORPH) CBC W/MANUAL [id number] 07:45:00* Test Item Value Reference Range Interpretation [...] MORPHOLOGY (test code = PLTMORPH) CBC W/MANUAL [id number] 07:45:00* Test Item Value Reference Range Interpretation [...] MORPHOLOGY (test code = PLTMORPH) CBC W/MANUAL [id number] 07:45:00* Test Item Value Reference Range Interpretation [...] MORPHOLOGY (test code = PLTMORPH) CBC W/MANUAL [id number] 07:45:00* Test Item Value Reference Range Interpretation [...] MORPHOLOGY (test code = PLTMORPH) COMPREHENSIVE METABOLIC [id number] 07:42:00* Test Item Value Reference Range Interpretation [...] code = ALKP) IUnit/L 45-117 ANTINUCLEAR ANTIBODIES [id number] 07:22:00* Test Item Value Reference Range Interpretation Comments ROXY SCREEN (test code = ANASCR) QNS RECOLLECT FOR SENDOUTSV.LAB.[facility] 09/07/18 1356ACUTE HEPATITIS [id number] 07:22:00* Test Item Value Reference Range Interpretation [...] with a HCV Nucleic Acid Amplification test (369897).Performed At: [facility] [id number] Rush Mack MD Ph:[phone] QNS RECOLLECT FOR SENDOUTSV.LAB.[facility] 09/07/18 1356AB [id number] 07:22:00* Test Item Value Reference Range Interpretation Comments AB MITOCHONDRIAL (test code = MITOCHAB) EIA <1.0 QNS RECOLLECT FOR SENDOUTSV.LAB.[facility] 09/07/18 1356AB ANTI-SMOOTH [id number] 07:22:00* Test Item Value Reference Range Interpretation Comments AB ANTI-SMOOTH MUSCLE (test code = SMOOTHAB) Units QNS RECOLLECT FOR SENDOUTSV.LAB.[facility] 09/07/18 [id number] 06:02:00* Test Item Value Reference Range Interpretation Comments GLUBED (test code = GLUBED) 147 mg/dL 74-106 H Performed by certified tucking machine operator at [facility] [id number] 21:52:00* Test Item Value Reference Range Interpretation Comments GLUBED (test code = GLUBED) 184 mg/dL 74-106 H Performed by certified tucking machine operator at [facility] [id number] 19:10:00* Test Item Value Reference Range Interpretation Comments AMMONIA (test code = AMM) < 10 umol/L 11-32 L [id number] 16:57:00* Test Item Value Reference Range Interpretation Comments GLUBED (test code = GLUBED) 154 mg/dL 74-106 H Performed by certified tucking machine operator at [facility] [id number] 12:53:00* Test Item Value Reference Range Interpretation Comments GLUBED (test code = GLUBED) 173 mg/dL 74-106 H Performed by certified tucking machine operator at [facility] [id number] 10:49:00* Test Item Value Reference Range Interpretation Comments GLUBED (test code = GLUBED) 175 mg/dL 74-106 H Performed by certified tucking machine operator at [facility] CBC W/MANUAL [id number] 06:44:00* Test Item Value Reference Range Interpretation [...] code = ALKP) IUnit/L 45-117 PT SLEEPING, [facility] V.LAB. 09/08/18 0331PROTHROMBIN [id number] 06:12:00 * Test Item Value Reference Range [...] Mechanical prosthetic heart valves (2.5-3.5) PT SLEEPING, [facility] V.LAB. 09/08/18 0331IS PATIENT ON ANTICOAGULANTS? NCBC W/MANUAL [id number] 06:01:00* Test Item Value Reference Range Interpretation [...] PT SLEEPING, [facility] V.LAB.KW 09/08/18 0332CBC W/MANUAL [id number] 06:00:00 * Test Item Value Reference Range [...] PT SLEEPING, COMEBACK V.LAB.KW 09/08/18 0332CBC W/MANUAL [id number] 06:00:00 * Test Item Value Reference Range [...] PT SLEEPING, COMEBACK V.LAB.KW 09/08/18 0332CBC W/MANUAL [id number] 06:00:00 * Test Item Value Reference Range [...] PT SLEEPING, COMEBACK V.LAB.KW 09/08/18 0332CBC W/MANUAL [id number] 06:00:00 * Test Item Value Reference Range [...] = PLTMORPH) PT SLEEPING, [facility]EBACK V.LAB.KW 09/08/18 [id number] 23:01:00* Test Item Value Reference Range Interpretation Comments GLUBED (test code = GLUBED) 197 mg/dL 74-106 H Performed by certified tucking machine operator at [facility] [id number] 16:42:00* Test Item Value Reference Range Interpretation Comments GLUBED (test code = GLUBED) 193 mg/dL 74-106 H Performed by certified tucking machine operator at [facility] CBC W/MANUAL [id number] 13:56:00* Test Item Value Reference Range Interpretation [...] (test code = PLTMORPH) NORMAL BASIC METABOLIC [id number] 12:58:00* Test Item Value Reference Range Interpretation [...] CA) 7.8 mg/dL 8.5-10.1 L HEPATIC FUNCTION [id number] 12:58:00* Test Item Value Reference Range Interpretation [...] due to change in reagent. BASIC METABOLIC [id number] 12:53:00* Test Item Value Reference Range Interpretation [...] CA) 7.8 mg/dL 8.5-10.1 L HEPATIC FUNCTION [id number] 12:53:00* Test Item Value Reference Range Interpretation [...] code = ALKP) IUnit/L 45-117 CBC W/MANUAL [id number] 12:43:00* Test Item Value Reference Range Interpretation [...] MORPHOLOGY (test code = PLTMORPH) CBC W/MANUAL [id number] 12:42:00* Test Item Value Reference Range Interpretation [...] MORPHOLOGY (test code = PLTMORPH) CBC W/MANUAL [id number] 12:42:00* Test Item Value Reference Range Interpretation [...] MORPHOLOGY (test code = PLTMORPH) CBC W/MANUAL [id number] 12:42:00* Test Item Value Reference Range Interpretation [...] MORPHOLOGY (test code = PLTMORPH) CBC W/MANUAL [id number] 12:42:00* Test Item Value Reference Range Interpretation [...] PLATELET MORPHOLOGY (test code = PLTMORPH) - [facility] [id number] 12:06:00 FAX: Reed Bernard MD [phone] [place]: St: ADM FAX: Alaina Ramos MD [phone] FAX: Hugh Wilkins [phone] Name: ERIN SCHILLING [facility] : 1950 Age/S: 67/F [address] [facility] Unit #: [id number] Loc: [place] [address] Phys: Hugh Guzman MD Acct: [id number] Dis Date: Status: ADM IN [facility] #: [phone] Exam Date: 09/07/2018 1154 FAX #: [phone] Reason: Elevated LFT EXAMS: CPT CODE: [id number] MR I MRCP 64954 HISTORY: [place] nella liver function tests. COMPARISON: Ultrasound from [...] the ampulla. Patient is post cholecystectomy. at 1204 Repor nella and signed by: Jamie Lovell M.D. CC: Reed Augustin MD; Keith augustine,Alaina Mclean; Hugh Guzman MD Technologist: TAYLA NYERT - MRI Trnscrd Date/Time/By: 09/07/2018 (8721) : By: [email or web address] Orig Print D/T: S: 09/07/2018 (0882) PAGE 1 Signed Report AG HEPAT B SURF 2018-09-07 10:54:00* Test Item Value Reference Range Interpretation Comments AG HEPAT B SURF (test code = HBSAG) Nonreactive Index Nonreactive [id number] 07:52:00* Test Item Value Reference Range Interpretation Comments GLUBED (test code = GLUBED) 204 mg/dL 74-106 H Performed by certified tucking machine operator at [facility] - US ABDOMEN [id number] 20:27:00 Name: ERIN SCHILLING [facility] : 1950 Age/S: 67 / F [address] [facility] Unit #: [id number] [place]: [place] [address] Phys: Torri Conti MD Acct: [id number] Dis Date: Status: REG ER PHONE #: [phone] Exam Date: 09/06/20181952 FAX #: [phone] Reason: elev lft's, sob, abd pain EXAMS: CPT CODE: [id number] US ABDOMEN LTD 19528 REASON FOR EXAM: elev lft's, sob, abd pain EXAM ORDER DATE: 09/06/2018 6:52 PM Attending Torito: Torri Conti MD PROCEDURE: - US ABDOMEN [...] Torri Conti MD Technologist: Aditi Long RT(S), RDMS Trnscb Date/Time: 09/06/2018 (2026) ShelleyL Orig Print D/T: S: 09/06/2018 (2029) Probe: PAGE 1 Signed Report PROTHROMBIN [id number] 18:42:00* Test Item Value Reference Range Interpretation [...] (2.5-3.5) IS PATIENT ON ANTICOAGULANTS? NTHROMBOPLASTIN TIME [id number] 18:42:00* Test Item Value Reference Range Interpretation Comments THROMBOPLASTIN TIME PARTIAL (test code = PTT) 52.1 seconds 25.0-36. 5 H IS PATIENT ON ANTICOAGULANTS? NB-TYPE NATRIURETIC [id number] 18:24:00* Test Item Value Reference Range Interpretation Comments B-TYPE NATRIURETIC PEPTIDE (test code = BNP) 261.92 pgram/mL 0-100 H BASIC METABOLIC [id number] 18:22:00* Test Item Value Reference Range Interpretation [...] CA) 8.3 mg/dL 8.5-10.1 L HEPATIC FUNCTION [id number] 18:22:00* Test Item Value Reference Range Interpretation [...] reference range due to change in reagent. [id number] 18:22:00* Test Item Value Reference Range Interpretation Comments LIPASE (test code = LIP) 241 U/L 73.0-393.0 N [id number] 18:22:00* Test Item Value Reference Range Interpretation Comments TROPONIN-I (test code = TROPI) <0.015 ng/mL 0-0.045 N - XR CHEST 1 [id number] 18:20:00 FAX: Alaina Ramos MD [phone] [place]: St: [facility] FAX: Torri Conti MD [phone] Name: ERIN SCHILLING [facility] : 1950 Age/S: 67/F [address] [facility] Unit #: [id number] Loc: [place] [address] Phys: oTrri Conti MD Acct: [id number] Dis Date: Status: REG ER PHONE #: [phone] Exam Date: 09/06/2018 1808 FAX #: [phone] Reason: Shortness of Breath EXAMS: CPT CODE: [id number] XR CHEST 1 V 05351 REASON FOR EXAM: Shortness of Breath EXAM ORDER DATE: 09/06/2018 5:30 PM Ordering Torito: Torri Conti MD PROCEDURE: - XR CHEST 1 V COMPARISON: FINDINGS: Portable AP frontal view of the chest obtained at 6:08 PM shows clear lungs without evidence of consolidation. There is no evidence of effusion. The heart size is within normal limits. Pulmonary vasculatures are unremarkable. IMPRESSION: No active disease. Niki ctronically Signed by Torito Macias on 09/06/2018 at 1820 Reported and signed by: Miguel Macias M.D. CC: Alaina Alonzo; Trori Dia MD Technologist: Leigh Ann Ruelas) Trnscrd Date/Time/By: 09/06/2018 (1819) : By: Kristen SANDERS Orig Print D/T: S: 09/06/2018 (1822) PAGE 1 Signed Report BASIC METABOLIC [id number] 18:19:00* Test Item Value Reference Range Interpretation [...] code = CA) mg/dL 8.5-10.1 HEPATIC FUNCTION [id number] 18:19:00* Test Item Value Reference Range Interpretation [...] TOTAL (test code = ALKP) IUnit/L 45-117 [id number] 18:19:00* Test Item Value Reference Range Interpretation Comments LIPASE (test code = LIP) U/L 73.0-393.0 [id number] 18:19:00* Test Item Value Reference Range Interpretation Comments TROPONIN-I (test code = TROPI) ng/mL 0-0.045 CBC W/O [id number] 18:03:00* Test Item Value Reference Range Interpretation [...] MPV) 9.6 fL 6.7-11.0 N CBC W/O [id number] 18:02:00* Test Item Value Reference Range Interpretation [...] VOLUME (test code = MPV) fL 6.7-11.0 [id number] 17:48:00* Test Item Value Reference Range Interpretation Comments GLUBED (test code = GLUBED) 206 mg/dL 74-106 H Performed by certified tucking machine operator at [facility] - CT UP EXTREM W/O CONT [id number] 17:12:00 Name: ERIN SCHILLING [facility] : 1950 Age/S: 67 / F [address] [facility] Unit #: [id number] Loc: [place] [address] Phys: Keron West DO Acct: [id number] Dis Date: Status: REG ER PHONE #: [phone] Exam Date: 09/03/2018 1640 FAX #: [phone] Reason: abnl xr, possible fracture EXAMS: CPT CODE: [id number] CT [place] EXTREM W/[place] [address] HISTORY: Right shoulder trauma; possible fracture on [...] RT (R)(CT) CTDI: DLP: Trnscb Date/Time: 09/03/2018 (171) Yury DP1 Orig Print D/T: S: 09/03/2018 (3898) PAGE 1 Signed Report - XR SHOULDER 2 + V [id number] 14:07:00 FAX: Alaina Ramos MD [phone] [place]: B St: REG FAX: Keron West DO Name: ERIN SCHILLING [facility] : 1950 Age/S: 67/F [address] Unit #: [id number] Loc: [place] [address] Phys: JoelKeron pelayo Swetha DO Acct: [id number] Dis Date: Status: REG ER PHONE #: [phone] Exam Date: 09/03/2018 1250 FAX #: [phone] Reason: pain EXAMS: CPT CODE: [id number] XR SHOULDER 2 + V RT [address] HISTORY: pain TECHNIQUE: Frontal, oblique, and scapular [...] Alonzo; Keron West DO Technologist: VIV BOSCH RT Trnscrd Date/Time/By: 09/03/2018 (8176) : By: [email or web address] Orig Print D/T: S: 09/03/2018 (2858) PAGE 1 Signed Report - CT ABD PELVIS W/O [id number] 13:33:00 [facility] 1950 Age/S: 67 / F [address] Unit #: [id number] Loc: [place] [address] Phys: Keron West DO Acct: [id number] Dis Date: Status: REG ER PHONE #: [phone] Exam Date: 09/03/2018 1220 FAX #: [phone] Reason: suprepubic pain EXAMS: CPT CODE: [id number] CT ABD PELVIS W/O CONT 32852 REASON FOR EXAM: suprepubic pain EXAM ORDER DATE: 09/03/2018 12:09 PM Ordering MLuis Angel: Keron West DO PROCEDURE: - CT ABD PELVIS W/O [...] 1 Signed Report (CONTINUED) Name: ERIN SCHILLING [facility] : 1950 Age/S: 67 / F [address] [facility] Unit #: [id number] Loc: [place] [address] Phys: Keron West DO Acct: [id number] Dis Date: Status: REG ER PHONE #: [phone] Exam Date: 09/03/2018 1220 FAX #: [phone] Reason: suprepubic pain EXAMS: CPT CODE: [id number] CT ABD PELVIS W/O CONT 37352 <Continued> IMPRESSION: Stable right lower quadrant colostomy. [...] changed since June 08, 2018 study. at 5986 Reported and signed by: Odin Rivera M.D. CC: Alaina Alonzo; Keron West DO Technologist:Cristiane Sam RT(R),CT; CTDI: DLP: Trnscb Date/Time: 09/03/2018 (2435) t.SDR.PB10 Orig Print D/T: S: 09/03/2018 (9607) PAGE 2 Signed Report - XR HIP W/PEL UNI 2+V [id number] 13:15:00 FAX: Alaina Ramos MD [phone] [place]: St: [facility] FAX: Keron West DO Name: ERNI SCHILLING [facility] : 1950 Age/S: 67/F [address] Unit #: [id number] Loc: [place] [address] Phys: Keron West DO Acct: [id number] Dis Date: Status: REG ER PHONE #: [phone] Exam Date: 09/03/2018 1250 FAX #: [phone] Reason: pain EXAMS: CPT CODE: [id number] XR HIP W/PEL UNI 2+[place] [address] HISTORY: pain EXAM: Frontal and lateral views [...] Alonzo; Keron West DO Technologist: VIV ZHOU RT Trnscrd Date/Time/By: 09/04/19 19 (1378) : By: [email or web address] Orig Print D/T: S: 09/03/2018 (1316) PAGE 1 Signed Report - XR FEMUR MIN 2 VWS [id number] 13:15:00 FAX: Alaina Ramos MD [phone] [place]: St: REG FAX: Keron West DO Name: ERIN SCHILLING [facility] : 1950 Age/S: 67/F [address] [facility] Unit #: [id number] [facility]: [facility] [place] [facility] Phys: Keron West DO Acct: [id number] Dis Date: Status: REG ER PHONE #: [phone] Exam Date: 09/03/2018 1250 FAX #: [phone] Reason: pain EXAMS: CPT CODE: [id number] XR [place]EMUR MIN [address] [place] [address] HISTORY: pain EXAM: Frontal and lateral views [...] Alonzo; Keron West DO Technologist: VIV ZHOU RT Trnscrd Date/Time/By: 09/04/19 19 (4617) : By: [email or web address] Orig Print D/T: S: 09/03/2018 (4148) PAGE 1 Signed Report BASIC METABOLIC [id number] 12:38:00* Test Item Value Reference Range Interpretation [...] CA) 8.0 mg/dL 8.5-10.1 L HEPATIC FUNCTION [id number] 12:38:00* Test Item Value Reference Range Interpretation [...] reference range due to change in reagent. [id number] 12:38:00* Test Item Value Reference Range Interpretation Comments LIPASE (test code = LIP) 153 U/L 73.0-393.0 N BASIC METABOLIC [id number] 12:28:00* Test Item Value Reference Range Interpretation [...] code = CA) mg/dL 8.5-10.1 HEPATIC FUNCTION [id number] 12:28:00* Test Item Value Reference Range Interpretation [...] TOTAL (test code = ALKP) IUnit/L 45-117 [id number] 12:28:00* Test Item Value Reference Range Interpretation Comments LIPASE (test code = LIP) U/L 73.0-393.0 CBC W/O [id number] 12:01:00* Test Item Value Reference Range Interpretation [...] MPV) 10.2 fL 6.7-11.0 N CBC W/O [id number] 11:59:00* Test Item Value Reference Range Interpretation [...] code = MPV) fL 6.7-11.0 BASIC METABOLIC [id number] 12:13:00* Test Item Value Reference Range Interpretation [...] code = CA) 8.9 mg/dL 8.5-10.1 N [id number] 12:13:00* Test Item Value Reference Range Interpretation Comments TROPONIN-I (test code = TROPI) <0.015 ng/mL 0-0.045 N PROTHROMBIN [id number] 12:05:00* Test Item Value Reference Range Interpretation [...] PATIENT ON ANTICOAGULANTS? YLIST ANTICOAGULANTS COUMADINTHROMBOPLASTIN TIME [id number] 12:05:00* Test Item Value Reference Range Interpretation Comments THROMBOPLASTIN TIME PARTIAL (test code = PTT) 47.9 seconds 25.0-36. 5 H IS PATIENT ON ANTICOAGULANTS? YLIST ANTICOAGULANTS COUMADINHEPATIC FUNCTION [id number] 12:02:00* Test Item Value Reference Range Interpretation [...] reference range due to change in reagent. [id number] 12:02:00* Test Item Value Reference Range Interpretation Comments LIPASE (test code = LIP) 233 U/L 73.0-393.0 N BASIC METABOLIC [id number] 12:00:00* Test Item Value Reference Range Interpretation [...] CALCIUM (test code = CA) mg/dL 8.5-10.1 [id number] 12:00:00* Test Item Value Reference Range Interpretation Comments TROPONIN-I (test code = TROPI) ng/mL 0-0.045 CBC W/O [id number] 11:57:00* Test Item Value Reference Range Interpretation [...] MPV) 10.0 fL 6.7-11.0 N TROPONIN I [id number] 11:27:00* Test Item Value Reference Range Interpretation [...] valid only if similarmethodology is used. PROTHROMBIN [id number] 11:06:00* Test Item Value Reference Range Interpretation [...] heart valves (2.5-3.5) - XR CHEST 1 [id number] 11:04:00 FAX: Alaina Ramos MD [phone] [place]: St: REG FAX: Keron West DO Name: ERIN SCHILLING [facility] : 1950 Age/S: 67/F [address] [facility] Unit #: [id number] Loc: [place] [address] Phys: Keron West DO Acct: [id number] Dis Date: Status: REG ER PHONE #: [phone] Exam Date: 08/25/2018 1046 FAX #: [phone] Reason: CHEST PAIN EXAMS: CPT CODE: [id number] XR CHEST 1 V 49364 HISTORY: Chest pain. COMPARISON: June 08, 2018. No acute infiltrates, effusion or congestion is noted. The cardiac and mediastinal silhouette are within normal limits. IMPRESSION: No acute infiltrates, effusion or congestion. at 1104 Reported and signed by: Jamie Lovell M.D. CC: Alaina Alonzo; Keron West DO Technologist: Nadeen Mcintosh(R); Loren Ulloa RT(R) Trnscrd Date/Time/By: 08/25/2018 (2919) : By: [email or web address] Orig Print D/T: S: 08/25/2018 (6030) PAGE 1 Signed Report PROTHROMBIN [id number] 12:39:00* Test Item Value Reference Range Interpretation [...] Mechanical prosthetic heart valves (2.5-3.5) BASIC METABOLIC [id number] 10:43:00* Test Item Value Reference Range Interpretation Comments SODIUM (test code = NA) 131 mmol/L 136-145 L POTASSIUM (test code = K) 6.5 mmol/L 3.5-5.1 Re sults called to KDE4803 by V.DANYELL 06/08/18 1036Critical results verified and read back [...] CA) 8.7 mg/dL 8.5-10.1 N HEPATIC FUNCTION [id number] 10:43:00* Test Item Value Reference Range Interpretation [...] reference range due to change in reagent. [id number] 10:43:00* Test Item Value Reference Range Interpretation Comments LIPASE (test code = LIP) 370 U/L 73.0-393.0 N PROTHROMBIN [id number] 08:38:00* Test Item Value Reference Range Interpretation [...] PATIENT ON ANTICOAGULANTS? N- XR CHEST 1 [id number] 07:45:00 FAX: Alaina Ramos MD [phone] [place]: St: [facility] FAX: Tigre Rangel MD [phone] FAX: Keron West DO --------- Name: ERIN SCHILLING [facility] : 1950 Age/S: 67/F [address] it #: [id number] Loc: [place] [address] Phys: Tigre Rangel MD Acct: [id number] Dis Date: Status: REG PH ONE #: [phone] Exam Date: 06/08/2018 0708 FAX #: [phone] Reason: cough EXAMS: CPT CODE: [id number] XR CHEST 1 V 05394 REASON FOR EXAM: cough EXAM ORDER DATE: 06/08/2018 6:58 AM Ordering M.D.: Tigre Rangel MD PROCEDURE: - XR CHEST [...] Mark MD; Keron West DO Technologist: Jeremiah Horn RT(R) Trnscrd Date/Time/By: 06/08/2018 (0749) : By: ShelleyL Orig Print D/T: S: 06/08/2018 (0346) PAGE 1 Signed Report - CT C-SPINE W/O [id number] 07:44:00 Name: ERIN SCHILLING [facility] : 1950 Age/S: 67 / F [address] Unit #: [id number] Loc: [place] [address] Phys: Tigre Rangel MD Acct: [id number] Dis Date: Status: REG ER PHONE #: [phone] Exam Date: 06/08/2018 0659 FAX #: [phone] Reason: neck pain EXAMS: CPT CODE: [id number] CT C-SPINE W/O CONTRAST 62799 REASON FOR EXAM: neck pain EXAM ORDER DATE: 06/08/2018 6:47 AM Ordering Torito: Tigre Rangel MD PROCEDURE: - CT C-SPINE [...] RT(R),(MR),(CT) CTDI: DLP: Trnscb Date/Time: 06/08/2018 (0744) Kristen.VTL Orig Print D/T: S: 06/08/2018 (0747) CTDI: DLP: PAGE 1 Signed Report - CT HEAD/BRAIN W/O [id number] 07:43:00 Name: ERIN SCHILLING [facility] : 1950 Age/S: 67 / F [address] [facility] Unit #: [id number] Loc: [place] [address] Phys: Tigre Rangel MD Acct: [id number] Dis Date: Status: REG ER PHONE #: [phone] Exam Date: 06/08/2018 0659 FAX #: [phone] Reason: headache fall coumadin EXAMS: CPT CODE: [id number] CT HEAD/BRAIN W/O CONT 49052 REASON FOR EXAM: headache fall coumadin EXAM ORDER DATE: 06/08/2018 6:47 AM Ordering M.D.: Tigre Rangel MD PROCEDURE: - CT HEAD/BRAIN W/O CONT COMPARISON: 05/02/2018 FINDINGS: CT images of the brain were obtained without IV contrast. Dose modulation, iterative reconstruction, and/or weight based adjustment of the MA/KV was utilized to reduce the radiation dose to as low as reasonably achievable. The brain parenchyma is within normal limits. The chaing-white matter delineation is unremarkable. The ventricles, cisterns, and sulci are unremarkable. There is no evidence of hemorrhage, mass, mass effect. There is no evidence of acute or old infarct. The calvarium is intact. IMPRESSION: Unremarkable brain. at 0743 Reported and signed by: Miguel Macias M.D. CC: Alaina Alonzo; Tigre Rangel MD; Keron West DO Technologist:Jorge Barragan RT(R),(MR),(CT) CTDI: DLP: Trnscb Date/Time: 06/08/2018 (0743) Kristen.VTL Orig Print D/T: S: 06/08/2018 (0746) CTDI: DLP: PAGE 1 Signed Report - CT ABD PELVIS [id number] 06:59:00 Name: ERIN SCHILLING [facility] : 1950 Age/S: 67 / F [address] Unit #: [id number] Loc: [facility] [place] [address] Phys: Keron West DO Acct: [id number] Dis Date: Status: REG ER PHONE #: [phone] Exam Date: 06/08/2018 0644 FAX #: [phone] Reason: colostomy site swelling EXAMS: CPT CODE: [id number] CT ABD PELVIS W/CONT [id number] AFTER HOURS SERVICE ON: 06/08/2018 6:55 AM [...] 1 Signed Report (CONTINUED) Name: ERIN SCHILLING [facility] : 1950 Age/S: 67 / F [address] Unit #: [id number] Loc: [facility] [place] [address] Phys: Keron West DO Acct: [id number] Dis Date: Status: REG ER PHONE #: [phone] Exam Date: 06/08/2018 0644 FAX #: [phone] Reason: colostomy site swelling EXAMS: CPT CODE: [id number] CT ABD PELVIS W/CONT 74114 < Continued> at 0659 Reported and signed by: Abdon Saleh M.D. CC: Alaina Alonzo; Keron West DO Technologist:MAHESH VAZQUEZ, RT; MOISES BarraganI: DLP: Trnscb Date/Time: 06/08/2018 (658) [email or web address] Orig Print D/T: S: 06/08/2018 (07) CTDI: DLP: PAGE 2 Signed Report CBC W/O [id number] 06:45:00* Test Item Value Reference Range Interpretation [...] MPV) 9.7 fL 6.7-11.0 N CBC W/O [id number] 06:44:00* Test Item Value Reference Range Interpretation [...] (test code = MPV) fL 6.7-11.0 PROTHROMBIN [id number] 12:55:00* Test Item Value Reference Range Interpretation [...] Atrial fibrillation Mechanical prosthetic heart valves (2.5-3.5) [id number] 10:20:00* Test Item Value Reference Range Interpretation Comments LIDOCAINE (test code = LIDO) None Detected ug/mL 1.5-5.0 Detection Limit = 0.2 <0.2 indicates None DetectedPerformed At: [facility] [id number] [place], [place] [id number] Sanjai MD Ph:[phone] CBC W/O [id number] 17:27:00* Test Item Value Reference Range Interpretation [...] MPV) 9.9 fL 6.7-11.0 N TROPONIN I [id number] 17:14:00* Test Item Value Reference Range Interpretation [...] similarmethodology is used. - XR CHEST 1 [id number] 16:45:00 FAX: Musa Chan [phone] [place]: B St: REG FAX: Alaina Ramos MD [phone] Name: ERIN SCHILLING [facility] : 1950 Age/S: 67/F [address] [facility] Unit #: [id number] Loc: [place] [address] Phys: Musa Harris MD Acct: [id number] Dis Date: Status: REG ER PHONE #: [phone] Exam Date: 05/05/2018 164 FAX #: [phone] Reason: CHEST PAIN EXAMS: CPT CODE: [id number] XR CHEST 1 V 53580 REASON FOR EXAM: CHEST PAIN EXAM ORDER DATE: 05/05/2018 4:22 PM Ordering MLuis Angel: Musa Harris MD PROCEDURE: - XR CHEST 1 V COMPARISON: 05/01/2018 FINDINGS: Portable AP frontal view of the chest obtained at 4:41 PM shows clear lungs. There is no evidence of consolidation. There is no evidence of effusion. The heart size is within normal limits. Pulmonary vasculatures are unremarkable. IMPRESSION: No active disease. at 5491 Reported and signed by: Miguel Macias M.D. CC: Swetha Harris MD; Alaina Alonzo Technologist: RODERICK WHARTON [facility] Date/Time/By: 05/05/2018 (5550) : By: ShelleyL Orig Print D/T: S: 05/05/2018 (0494) PAGE 1 Signed Report SYNOVIAL FLD CELL [id number] 09:44:00* Test Item Value Reference Range Interpretation Comments FLUID WBC AUTO (test code = WBCFLA) 76605 cells/uL FLUID RBC AUTO (test code = RBCFLA) 31943 cells/uL FLUID TOTAL CELLS (test code = TCFL) 38991 cells/uL >0 Fluid WBC RBC Type cells/uL [...] by CLAIRE Novoa "REVIEWED" 05/05/18 SYNOVIAL FLD [id number] 09:44:00* Test Item Value Reference Range Interpretation Comments SYNOVIAL FLD GLUCOSE (test code = GLUSY) 25 mg/dL SYNOVIAL FLD TOTAL [id number] 09:44:00* Test Item Value Reference Range Interpretation Comments SYNOVIAL FLD TOTAL PROTEIN (test code = PROTSY) 4.5 gram/dL [id number] 17:36:00* Test Item Value Reference Range Interpretation Comments GLUBED (test code = GLUBED) 283 mg/dL 74-106 H Performed by certified tucking machine operator at [facility] [id number] 17:30:00* Test Item Value Reference Range Interpretation Comments GLUBED (test code = GLUBED) 251 mg/dL 74-106 H Performed by certified tucking machine operator at [facility] SYNOVIAL FLD [id number] 13:17:00* Test Item Value Reference Range Interpretation Comments SYNOVIAL FLD CRYSTALS (test code = CRYSY) Note: None seen No crystals seen under normal or polarized light.Results verified by concentration technique.Performed At: [facility] [id number] Rush Mack MD Ph:[phone] [id number] 11:54:00* Test Item Value Reference Range Interpretation Comments GLUBED (test code = GLUBED) 274 mg/dL 74-106 H Performed by certified tucking machine operator at [facility] BASIC METABOLIC [id number] 09:24:00* Test Item Value Reference Range Interpretation [...] code = CA) 8.6 mg/dL 8.5-10.1 N [id number] 08:16:00* Test Item Value Reference Range Interpretation Comments GLUBED (test code = GLUBED) 285 mg/dL 74-106 H Performed by certified tucking machine operator at [facility] CBC W/O [id number] 07:26:00* Test Item Value Reference Range Interpretation [...] code = MPV) 10.3 fL 6.7-11.0 N [id number] 01:02:00* Test Item Value Reference Range Interpretation Comments GLUBED (test code = GLUBED) 397 mg/dL 74-106 H Performed by certified tucking machine operator at [facility] [id number] 20:36:00* Test Item Value Reference Range Interpretation Comments GLUBED (test code = GLUBED) 367 mg/dL 74-106 H Performed by certified tucking machine operator at [facility] SYNOVIAL FLD CELL [id number] 17:30:00* Test Item Value Reference Range Interpretation Comments FLUID WBC AUTO (test code = WBCFLA) 18609 cells/uL FLUID RBC AUTO (test code = RBCFLA) 80340 cells/uL FLUID TOTAL CELLS (test code = TCFL) 78606 cells/uL >0 Fluid WBC RBC Type cells/uL [...] (test code = REVIEW) PATHOLOGIST SYNOVIAL FLD [id number] 17:30:00* Test Item Value Reference Range Interpretation Comments SYNOVIAL FLD GLUCOSE (test code = GLUSY) 25 mg/dL SYNOVIAL FLD TOTAL [id number] 17:30:00* Test Item Value Reference Range Interpretation Comments SYNOVIAL FLD TOTAL PROTEIN (test code = PROTSY) 4.5 gram/dL [id number] 16:58:00* Test Item Value Reference Range Interpretation Comments GLUBED (test code = GLUBED) 263 mg/dL 74-106 H Performed by certified tucking machine operator at [facility] SED [id number] 15:27:00* Test Item Value Reference Range Interpretation Comments SED RATE (test code = SEDW) 116 mm/hr 0-30 H SED [id number] 15:26:00* Test Item Value Reference Range Interpretation Comments SED RATE (test code = SEDW) 116 mm/hr 0-[id number] 14:31:00* Test Item Value Reference Range Interpretation Comments FLUID WBC AUTO (test code = WBCFLA) 81371 cells/uL FLUID RBC AUTO (test code = RBCFLA) 50721 cells/uL FLUID TOTAL CELLS (test code = TCFL) 99784 cells/uL >0 Fluid WBC RBC Type cells/uL [...] (test code = REVIEW) PATHOLOGIST SYNOVIAL FLD [id number] 14:31:00* Test Item Value Reference Range Interpretation Comments SYNOVIAL FLD CRYSTALS (test code = CRYSY) CRYSTALS NONE SEEN SYNOVIAL FLD [id number] 14:31:00* Test Item Value Reference Range Interpretation Comments SYNOVIAL FLD GLUCOSE (test code = GLUSY) 25 mg/dL SYNOVIAL FLD TOTAL [id number] 14:31:00* Test Item Value Reference Range Interpretation Comments SYNOVIAL FLD TOTAL PROTEIN (test code = PROTSY) 4.5 gram/dL SYNOVIAL FLD CELL [id number] 14:27:00* Test Item Value Reference Range Interpretation [...] (test code = REVIEW) PATHOLOGIST SYNOVIAL FLD [id number] 14:27:00* Test Item Value Reference Range Interpretation Comments SYNOVIAL FLD CRYSTALS (test code = CRYSY) CRYSTALS NONE SEEN SYNOVIAL FLD [id number] 14:27:00* Test Item Value Reference Range Interpretation Comments SYNOVIAL FLD GLUCOSE (test code = GLUSY) 25 mg/dL SYNOVIAL FLD TOTAL [id number] 14:27:00* Test Item Value Reference Range Interpretation Comments SYNOVIAL FLD TOTAL PROTEIN (test code = PROTSY) 4.5 gram/dL SYNOVIAL FLD CELL [id number] 14:25:00* Test Item Value Reference Range Interpretation [...] (test code = REVIEW) PATHOLOGIST SYNOVIAL FLD [id number] 14:25:00* Test Item Value Reference Range Interpretation Comments SYNOVIAL FLD CRYSTALS (test code = CRYSY) CRYSTALS NONE SEEN SYNOVIAL FLD [id number] 14:25:00* Test Item Value Reference Range Interpretation Comments SYNOVIAL FLD GLUCOSE (test code = GLUSY) 25 mg/dL SYNOVIAL FLD TOTAL [id number] 14:25:00* Test Item Value Reference Range Interpretation Comments SYNOVIAL FLD TOTAL PROTEIN (test code = PROTSY) 4.5 gram/dL SYNOVIAL FLD CELL [id number] 13:31:00* Test Item Value Reference Range Interpretation [...] (test code = REVIEW) PATHOLOGIST SYNOVIAL FLD [id number] 13:31:00* Test Item Value Reference Range Interpretation Comments SYNOVIAL FLD CRYSTALS (test code = CRYSY) CRYSTALS NONE SEEN SYNOVIAL FLD [id number] 13:31:00* Test Item Value Reference Range Interpretation Comments SYNOVIAL FLD GLUCOSE (test code = GLUSY) 25 mg/dL SYNOVIAL FLD TOTAL [id number] 13:31:00* Test Item Value Reference Range Interpretation Comments SYNOVIAL FLD TOTAL PROTEIN (test code = PROTSY) 4.5 gram/dL C REACTIVE [id number] 13:13:00* Test Item Value Reference Range Interpretation Comments C REACTIVE PROTEIN (test code = CRP) 23.60 mg/dL 0-0.3 H [id number] 12:44:00* Test Item Value Reference Range Interpretation Comments GLUBED (test code = GLUBED) 185 mg/dL 74-106 H Performed by certified tucking machine operator at [facility] [id number] 12:37:00* Test Item Value Reference Range Interpretation Comments GLUBED (test code = GLUBED) 205 mg/dL 74-106 H Performed by certified tucking machine operator at [facility] - MRI UP JNT W/O CONT [id number] 08:37:00 FAX: Alaina Ramos MD [phone] [place]: B St: ADM FAX: Seth Mccord MD [phone] FAX: Haley Flannery MD [phone] Name: ERIN SCHILLING [facility] : 1950 Age/S: 67/F [address] Unit #: [id number] Loc: V.3042 [place] [address] Phys: Seth Benito MD Acct: [id number] Dis Date: Status: ADM IN ONE #: [phone] Exam Date: 05/02/2018 2100 FAX #: [phone] Reason: shoulder pain EXAMS: CPT CODE: [id number] MR I UP JNT W/[place] [address] HISTORY: Shoul monique pain. COMPARISON: None available [...] Signed Report (CONTINUED) FAX: Alaina Ramos MD [phone] [place]: St: ADM FAX: Seth Mccord MD [phone] FAX: Haley Flannery MD [phone] Name: ERIN HENAO [facility] : 1950 Age/S: 67/F [address] Unit #: [id number] Loc: V.3042 [place] [address] Phys: Seth Benito MD Acct: [id number] Dis Date: Status: ADM IN PHONE #: [phone] Exam Date: 05/02/2018 2100 FAX #: [phone] R rosa elena: shoulder pain EXAMS: CPT CODE: [id number] MRI [place] JNT W/[place] [address] <Continued> CC: Alaina Alonzo; Seth Benito MD; Haley Flannery MD Technologist: TAYLA NYE,RT - MRI Trnscrd Date/Time/By: 05/03/2018 (0837) : By: [email or web address] Orig Print D/T: S: 05/03/2018 (0840) PAGE 2 Signed Report [id number] 07:46:00* Test Item Value Reference Range Interpretation Comments GLUBED (test code = GLUBED) 164 mg/dL 74-106 H Performed by certified tucking machine operator at [facility] AB HEPATITIS B [id number] 07:24:00* Test Item Value Reference Range Interpretation Comments AB HEPATITIS B SURFACE (test code = HBSAB) Non Reactive () Non Reactive: Inconsistent with immunity, less than 10 mIU/mL Reactive: Consistent with immunity, greater than 9.9 mIU/mLPerformed At: [facility] [address] [id number] Rush Mack MD Ph:[phone] BASIC METABOLIC [id number] 06:05:00* Test Item Value Reference Range Interpretation [...] CA) 8.6 mg/dL 8.5-10.1 N CBC W/AUTO [id number] 06:05:00* Test Item Value Reference Range Interpretation [...] = MDIFF) NO, ONLY SCAN NEEDED DIFFERENTIAL [id number] 06:05:00* Test Item Value Reference Range Interpretation Comments STAIN ACCEPTABILITY (test code = STN ACCEPTABLE) STAIN ACCEPTABLE POLYCHROMASIA (test code = POLC) 1+ ANISOCYTOSIS (test code = ANISO) 1+ PLATELET ESTIMATE (test code = PLTEST) ADEQUATE PLATELET MORPHOLOGY (test code = PLTMORPH) NORMAL BASIC METABOLIC [id number] 05:55:00* Test Item Value Reference Range Interpretation [...] code = CA) mg/dL 8.5-10.1 CBC W/AUTO [id number] 05:42:00* Test Item Value Reference Range Interpretation [...] = MDIFF) NO, ONLY SCAN NEEDED DIFFERENTIAL [id number] 05:42:00* Test Item Value Reference Range Interpretation Comments STAIN ACCEPTABILITY (test code = STN ACCEPTABLE) CABOT RINGS (test code = CAB) MORPHOLOGY COMMENT (test code = MOC) PLATELET ESTIMATE (test code = PLTEST) PLATELET MORPHOLOGY (test code = PLTMORPH) CBC W/AUTO [id number] 05:42:00* Test Item Value Reference Range Interpretation [...] = MDIFF) NO, ONLY SCAN NEEDED DIFFERENTIAL [id number] 05:42:00* Test Item Value Reference Range Interpretation Comments STAIN ACCEPTABILITY (test code = STN ACCEPTABLE) MORPHOLOGY COMMENT (test code = MOC) PLATELET ESTIMATE (test code = PLTEST) PLATELET MORPHOLOGY (test code = PLTMORPH) CBC W/AUTO [id number] 05:41:00* Test Item Value Reference Range Interpretation [...] = MDIFF) NO, ONLY SCAN NEEDED DIFFERENTIAL [id number] 05:41:00* Test Item Value Reference Range Interpretation Comments STAIN ACCEPTABILITY (test code = STN ACCEPTABLE) CABOT RINGS (test code = CAB) MORPHOLOGY COMMENT (test code = MOC) PLATELET ESTIMATE (test code = PLTEST) PLATELET MORPHOLOGY (test code = PLTMORPH) CBC W/AUTO [id number] 05:41:00* Test Item Value Reference Range Interpretation [...] = MDIFF) NO, ONLY SCAN NEEDED DIFFERENTIAL [id number] 05:41:00* Test Item Value Reference Range Interpretation Comments STAIN ACCEPTABILITY (test code = STN ACCEPTABLE) CABOT RINGS (test code = CAB) MORPHOLOGY COMMENT (test code = MOC) PLATELET ESTIMATE (test code = PLTEST) PLATELET MORPHOLOGY (test code = PLTMORPH) CBC W/AUTO [id number] 05:35:00* Test Item Value Reference Range Interpretation [...] # (test code = BA#) K/mm3 0.0-0.2 [id number] 21:48:00* Test Item Value Reference Range Interpretation Comments GLUBED (test code = GLUBED) 194 mg/dL 74-106 H Performed by certified tucking machine operator at [facility] - XR SHOULDER 2 + V [id number] 16:22:00 FAX: Alaina Ramos MD [phone] [place]: St: ADM FAX: Seth Mccodr MD [phone] FAX: Haley Flannery MD [phone] Name: ERIN SCHILLING [facility] : 1950 Age/S: 67/F [address] Unit #: [id number] Loc: V.3042 [place] [address] Phys: Seth Benito MD Acct: [id number] Dis Date: Status: ADM IN ONE #: [phone] Exam Date: 05/02/2018 1610 FAX #: [phone] Reason: pain EXAMS: CPT CODE: [id number] XR SHOULDER 2 + [place] [address] REASON FOR EXAM: pain EXAM ORDER DATE: 05/02/2018 12:00 AM Ordering MLuis Angel: Seth Benito MD PROCEDURE: - XR SHOULDER [...] Technologist: Constantino sarmiento RT(R) Trnscrd Date/Time/By: 05/02/2018 (9969) : By: [email or web address].VTL Orig Print D/T: S: 05/02/2018 (6283) PAGE 1 Signed Report - XR SHOULDER 2 + V [id number] 13:31:00 FAX: Alaina Ramos MD [phone] [place]: St: [facility] FAX: Haley Flannery MD [phone] Name: ERIN SCHILLING [facility] : 1950 Age/S: 67/F [address] [facility] Unit #: [id number] Loc: V.3042 [place] [address] Phys: Haley Flannery MD Acct: [id number] Dis Date: Status: ADM IN PHONE #: [phone] Exam Date: 05/02/2018 1306 FAX #: [phone] Reason: right shoulder pain EXAMS: CPT CODE: [id number] XR SHOULDER 2 + [place] [address] HISTORY: Right shoulder pain. COMPARISON: None sara ilable. 3 views of the right shoulder: No acute frac ture or dislocation. Mildly narrowed shoulder and AC joints. High riding humeral head may suggest chronic rotator cuff tear. Scapula and glenoid are normal. Visualized lungs are clear. IMPRESSION: No acute fracture or dislocation. High riding humeral head may s uggest chronic rotator cuff tear. at 1331 Reported and signed by: Swetha Lovell M.D. CC: Alaina Alonzo; Haley Flannery MD Technologist: CLAUDIA WAY RT(R) Trnscrd Date/Time/By: 05/02/2018 (0801) : By: [email or web address] Orig Print D/T: S: 05/02/2018 (2625) PAGE 1 Signed Report - CT HEAD/BRAIN W/O CONT 2018-05-02 13:28:00 Name: ERIN SCHILLING [facility] : 1950 Age/S: 67 / F [address] Unit #: [id number] Loc: [place] [address] Phys: Haley Flannery MD Acct: [id number] Dis Date: Status: ADM IN PHONE #: [phone] Exam Date: 05/02/2018 1308 FAX #: [phone] Reason: confusion EXAMS: CPT CODE: [id number] CT HEAD/BRAIN W/O CONT 50418 REASON FOR EXAM: confusion EXAM ORDER DATE: 05/02/2018 10:06 PM Ordering Torito: Haley Flannery MD PROCEDURE: - CT HEAD/BRAIN [...] RT(R),(MR),(CT) CTDI: DLP: Trnscb Date/Time: 05/02/2018 (1328) [email or web address] Orig Print D/T: S: 05/03/2018 (3380) CTDI: DLP: PAGE 1 Signed Report AG HEPAT B [id number] 08:48:00 * Test Item Value Reference Range Interpretation Comments AG HEPAT B SURF (test code = HBSAG) Nonreactive Index Nonreactive [id number] 06:41:00* Test Item Value Reference Range Interpretation Comments GLUBED (test code = GLUBED) 187 mg/dL 74-106 H Performed by certified tucking machine operator at [facility] BASIC METABOLIC [id number] 05:32:00* Test Item Value Reference Range Interpretation [...] CA) 8.1 mg/dL 8.5-10.1 L BASIC METABOLIC [id number] 04:54:00* Test Item Value Reference Range Interpretation [...] CALCIUM (test code = CA) mg/dL 8.5-10.1 [id number] 04:47:00* Test Item Value Reference Range Interpretation Comments GLYCOSYLATED HEMOGLOBIN (HA1C) (test code = GLYHGB) 8.6 % HbA1 4. 8-6.0 H ESTIMATED AVERAGE GLUCOSE (test code = EAG) 200 MG/DL CBC W/AUTO [id number] 04:14:00* Test Item Value Reference Range Interpretation [...] NRBC#) 0.00 K/mm3 0.0-0.1 N CBC W/AUTO [id number] 04:13:00* Test Item Value Reference Range Interpretation [...] # (test code = BA#) K/mm3 0.0-0.2 [id number] 00:07:00* Test Item Value Reference Range Interpretation Comments GLUBED (test code = GLUBED) 229 mg/dL 74-106 H Performed by certified tucking machine operator at [facility] [id number] 16:37:00* Test Item Value Reference Range Interpretation Comments GLUBED (test code = GLUBED) 234 mg/dL 74-106 H Performed by certified tucking machine operator at [facility] ARTERIAL BLOOD [id number] 15:10:00* Test Item Value Reference Range Interpretation [...] dr Duran 15:10 - 05/01/2018; by mireya ABG O2 SATURATION (test code = SATA) 94.9 [...] 17.7 % vol 18.0-22.0 L BASIC METABOLIC [id number] 14:34:00* Test Item Value Reference Range Interpretation [...] mg/dL 8.5-10.1 L 3+ HEMOLYSIS; NOTIFIED CASSANDA. [facility] 05/01/18 1302 [id number] 14:34:00* Test Item Value Reference Range Interpretation Comments TROPONIN-I (test code = TROPI) <0.015 ng/mL 0-0.045 N 3+ HEMOLYSIS; NOTIFIED CASS [place] [facility] 05/01/18 1302 [id number] 14:27:00* Test Item Value Reference Range Interpretation Comments MAGNESIUM (test code = MAG) 2.4 mg/dL 1.8-2.4 N 3+ HEMOLYSIS; NOTIFIED CASS [place] 05/01/18 1302 BASIC METABOLIC [id number] 14:23:00* Test Item Value Reference Range Interpretation [...] 3+ HEMOLYSIS; NOTIFIED JASPER. [facility] 05/01/18 1302 [id number] 14:23:00* Test Item Value Reference Range Interpretation Comments TROPONIN-I (test code = TROPI) ng/mL 0-0.045 3+ HEMOLYSIS; NOTIFIED CASSEMEKA. [facility]RAW [facility].V.[facility] 05/01/18 1302 TROPONIN I [id number] 13:06:00* Test Item Value Reference Range Interpretation [...] valid only if similarmethodology is used. PROTHROMBIN [id number] 12:55:00* Test Item Value Reference Range Interpretation [...] MPV) 9.5 fL 6.7-11.0 N CBC W/O [id number] 12:42:00* Test Item Value Reference Range Interpretation [...] MPV) fL 6.7-11.0 - XR CHEST 1 [id number] 12:35:00 FAX: Musa Chan [phone] [place]: St: REG FAX: Alaina Ramos MD [phone] FAX: Tigre Rangel MD [phone] Name: ERIN SCHILLING [facility] : 1950 Age/S: 67/F [address] [facility] Unit #: [id number] Loc: [place] [address] Phys: Tigre Rangel MD Acct: [id number] Dis Date: Status: REG ER PH ONE #: [phone] Exam Date: 05/01/2018 1210 FAX #: [phone] Reason: CHEST PAIN EXAMS: CPT CODE: [id number] XR CHEST 1 V 08904 HISTORY: CHEST PAIN TECHNIQUE: AP chest x-ray [...] Tigre Rangel MD Technol ogist: VIV BOSCH Trnscrd Date/Time/ By: 05/01/2018 (1235) : By: [email or web address] Orig Print D/T: S: 05/01/2018 (2 645) PAGE 1 Signed Report PROTHROMBIN [id number] 18:34:00* Test Item Value Reference Range Interpretation [...]
--- NOTE | 2019-08-31 14:05 | NUR ---
spoke with esme byrne. a.o.s; called out the dialysis nurse per dr. cook
[2019-08-31] MEDS ORDERED: SODIUM CHLORIDE 0.9% 100 ML ONE (14:19)
[2019-08-31] MEDS ORDERED: IOPAMIDOL 370 MG/ML 200 ML INFUS..BTL INJ ONE (14:19)
[2019-08-31] MEDS ORDERED: MECLIZINE HCL 12.5 MG TAB PO PRN (14:30)
[2019-08-31] MEDS ORDERED: HYDRALAZINE HCL 20 MG/ML VIAL IV PRN (14:30)
[2019-08-31] MEDS ORDERED: ACETAMINOPHEN 325 MG TAB PO PRN (14:30)
[2019-08-31] MEDS ORDERED: DEXTROSE 50% SYRINGE 50 ML IV PRN (14:30)
[2019-08-31] MEDS ORDERED: ONDANSETRON HCL INJ 2MG/ML 2ML 2 MG/ML VIAL IV PRN (14:30)
--- NOTE | 2019-08-31 14:50 | Consultation ---
DATE OF CONSULTATION: 08/31/2019 HISTORY OF PRESENT ILLNESS: A 68-year-old female, known to our Nephrology Service, multiple medical issues, who presented with dizziness and ataxia. She has some unstable gait. Currently lying supine. Awake, alert, and oriented x3. Denies shortness of breath or nausea. Her is by the bedside. She denies any headache. Denies any weakness in any extremity. Mildly nauseated, but no vomiting. Denies any abdominal pain, fever, or chills. LABORATORY DATA: Show white count 5.8 and hemoglobin 11.6. Potassium 4.9, bicarb 23, creatinine 7.5 with a calcium 7.2. Troponin I 0.025. ALLERGIES: TO PENICILLIN. PAST MEDICAL HISTORY: Diabetes, end-organ damage including coronary artery disease, end-stage renal disease, retinopathy. The patient has very poor vision, almost legally blind, peripheral neuropathy, secondary hyperparathyroidism, anemia, chronic kidney disease, history of atrial fibrillation and status post ablation in 2019, history of minimal coronary artery disease. Echocardiogram last shows ejection fraction 62% with left ventricular hypertrophy, history of rheumatoid arthritis, prior cholecystectomy, history of appendectomy, hysterectomy, and a colostomy. PHYSICAL EXAMINATION: GENERAL: Awake, alert, oriented x3, lying supine, in no apparent distress. VITAL SIGNS: Blood pressure of 105/68, pulse rate 77, afebrile. HEAD AND NECK: Cornea clear. Oral mucosa moist. LUNGS: Bibasilar rales. HEART: S1 and S2 audible. ABDOMEN: Otherwise soft and nontender. No apparent visceromegaly. EXTREMITIES: Lower extremity examination shows no edema. HOME MEDICATIONS: Not reconciled yet. She has been taking warfarin at home. Also on insulin and gabapentin. IMPRESSION AND PLAN: End-stage renal disease, mild fluid overload, central nervous system features. CT scan of the brain shows no acute intracranial findings, chronic microvascular changes. Current blood pressure stable. There is no metabolic reason for her underlying neurological symptoms. I will arrange for renal diet, dialysis. Resume phosphorus binders. Please see orders. MD TRI Thakkar/MODL /[id number]
--- NOTE | 2019-08-31 15:12 | Diagnostic Imaging Report ---
Examination: Cervical and Intracranial CT Angiogram with Contrast History: Ataxia. Weakness.. Comparison studies: None Technique: Axial images were obtained from the thoracic inlet. Coronal and sagittal images reconstructed from the axial data. Intravenous contrast: 100 mL of Isovue 370. Degree of stenosis at the carotid bulbs, if present, will be calculated using NASCET criteria where the smallest diameter at the location of stenosis is compared to the diameter of the more distal non-diseased vessel lumen. Computer generated maximum intensity projection and 3D images of the cervical and intracranial anterior and posterior circulations were performed on a separate workstation. Dose modulation, iterative reconstruction, and/or weight based adjustment of the mA/kV was utilized to reduce the radiation dose to as low as reasonably achievable. Findings: CTA neck: Aortic arch and major vessels: Patent. Common carotid arteries: Patent despite calcific plaque at the mid and distal segments. Cervical carotid bifurcations: Right: Nonstenotic atherosclerotic calcification. Left :Patent. Internal carotid arteries: Right: Patent. Left: Patent. Vertebral arteries: Patent bilateral V1 through V3 segments and right V4 segment. Mild stenosis of the left V4 segment due to calcific plaque for a length of 9 mm. CTA head: Internal carotid arteries: Nonstenotic atherosclerotic calcification of the right cavernous and supraclinoid segments. Mildly stenotic calcific plaque of the left cavernous and clinoid segments. Anterior cerebral arteries: Patent A1 and A2. Middle cerebral arteries: Patent M1 and M2. Posterior cerebral arteries: Patent P1 and P2. Vertebro-basilar system: Patent. Anatomical variants: Anterior communicating artery :Present Posterior communicating arteries: Not visualized. Vertebral arteries: Left dominant IMPRESSION: 1. No high-grade cervical or intracranial arterial stenosis or occlusion or vascular malformation. 2. Mild stenosis of the V4 segment of the left vertebral artery and left cavernous and clinoid internal carotid arteries due to calcific plaque. 3. Nonstenotic calcific plaque as detailed above. Signed by: Dr. Terri Aldridge M.D. on 08/31/2019 3:08 PM
--- NOTE | 2019-08-31 15:56 | Diagnostic Imaging Report ---
Examination: MRI BRAIN WO CONTRAST History: Weakness. Dizziness. Ataxia gait. Comparison studies: None Technique: Sagittal T2; axial DWI, FLAIR, GRE or SWI, T1, Coronal FLAIR. Intravenous contrast: None Findings: Scalp: No abnormal signal. No masses. Bone marrow: Normal in signal intensity. Brain volume: Generalized volume loss for patient's age. Ventricles: No hydrocephalus. Extra-axial spaces: No abnormalities. Parenchyma: There are patchy areas of T2/FLAIR hyperintensity in the periventricular and subcortical white matter, nonspecific. No masses, hemorrhage, acute or chronic vascular insults. Suprasellar and sellar region: No abnormalities. Craniocervical junction: No abnormalities. The foramen magnum is patent. No Chiari malformations. Vessels: Normal flow-voids in the arteries and sinuses. Additional findings:None. IMPRESSION: No acute intracranial abnormalities, specifically, no acute infarct. Chronic microvascular ischemic change and volume loss. Signed by: Dr. Terri Aldridge M.D. on 08/31/2019 3:53 PM
[2019-08-31 16:09] VITALS: BP 113/51
[2019-08-31] MEDS ORDERED: SODIUM CHLORIDE 0.9% 1000ML 2,000 ML ONE (16:24)
[2019-08-31] MEDS ORDERED: CYCLOBENZAPRINE10 MG PO (16:27)
[2019-08-31] MEDS: INSULIN LISPRO 100 UNIT/1 ML 3ML VIAL SQ SCH ×2 (16:30→21:00)
[2019-08-31 18:35] VITALS: BP 113/51
--- NOTE | 2019-08-31 18:45 | NUR ---
Patient arrived to unit at 1523. Patient was assessed, including wound assessment with two nurses. Patient wound was dressed and cleaned. Patient is AOx3. Patient walks with walker. Patient was started on dialysis during assessment. Patient was educated and oriented to room. Will pass on to oncoming shift.
[2019-08-31] MEDS: GABAPENTIN 300 MG CAP PO SCH (18:54)
[2019-08-31] MEDS: LORAZEPAM 0.5 MG TAB PO SCH (18:54)
[2019-08-31] MEDS: CYCLOBENZAPRINE HCL 10 MG TAB PO PRN (18:55)
[2019-08-31] MEDS: SEVELAMER CARBONATE 800 MG TAB PO SCH (18:55)
--- NOTE | 2019-08-31 19:38 | NUR ---
RECEIVED PT IN BED AOX3 .PT HAS LEFT ARM FISTULA FOR DALASIS .PT IS GETTING DIALYSIS NOW .PT HAS COLOSTOMY SACRAL STAGE IV .PT HAS PAIN PUMP TELE#2 SR .CALL LIGHT WITH IN REACH .CONTINUE TO MONITOR
[2019-08-31 19:55] VITALS: BP 131/90
[2019-08-31 20:16] VITALS: BP 131/90
[2019-08-31] MEDS ORDERED: PRAVASTATIN 20 MG TAB PO SCH (21:00)
[2019-08-31] MEDS ORDERED: INSULIN GLARGINE 100 UNITS/ML VIAL SC SCH (21:00)
[2019-08-31] MEDS: TRAMADOL HCL 50 MG TAB PO PRN (21:30)
[2019-09-01] VITALS: BP 113/55
[2019-09-01 04:00] VITALS: BP 132/52
--- NOTE | 2019-09-01 05:25 | NUR ---
PT RESTED DURING THE NIGHT .C/O PAIN AND GIVEN ORDERED PAIN MEDICATION CALL LIGHT WITH IN REACH .CONTINUE TO MONITOR
[2019-09-01] MEDS ORDERED: LEVOTHYROXINE SODIUM 25 MCG TABLET PO SCH (06:00)
[2019-09-01 07:03] LABS: BASOPHILS # (AUTO) 0.1 (0.0-0.1); BASOPHILS % 1.1 % (0.0-1.0); EOSINOPHILS # (AUTO) 0.3 (0.0-0.4); EOSINOPHILS % 4.8 % (0.0-6.0); HEMATOCRIT 44.1 % (34.2-44.1); HEMOGLOBIN 13.3 g/dL (12.0-16.0); LYMPHOCYTES % 18.7 % (18.0-39.1); MEAN CORPUSCULAR HEMOGLOBIN 27.5 pg (28-32); MEAN CORPUSCULAR HGB CONC 30.2 g/dL (31-35); MEAN CORPUSCULAR VOLUME 91.1 fL (81-99); MONOCYTES # (AUTO) 0.4 (0.2-0.8); NEUTROPHILS # (AUTO) 3.7 (2.1-6.9); NEUTROPHILS % 68.2 % (38.7-80.0); PLATELET COUNT 151 x10e3/uL (140-360); RED BLOOD COUNT 4.84 x10e6/uL (3.6-5.1); RED CELL DISTRIBUTION WIDTH 16.2 % (11.7-14.4)
--- NOTE | 2019-09-01 07:08 | NUR ---
BEDSIDE REPORT GIVEN TO THE ONCOMING NURSE
[2019-09-01 07:22] LABS: INR 2.82; PROTHROMBIN TIME 31.8 seconds (11.9-14.5)
[2019-09-01 07:29] LABS: ALBUMIN 3.4 g/dL (3.5-5.0); ALBUMIN/GLOBULIN RATIO 0.8 (0.8-2.0); ANION GAP 14.8 mmol/L (8-16); CALCIUM 8.6 mg/dL (8.4-10.2); CREATININE, SERUM 5.73 mg/dL (0.57-1.11); POTASSIUM 4.8 mmol/L (3.5-5.1)
[2019-09-01 07:50] VITALS: BP 140/49
[2019-09-01 07:56] VITALS: BP 140/49
[2019-09-01] MEDS ORDERED: FAMOTIDINE 20 MG/2 ML VIAL IV SCH (09:00)
[2019-09-01] MEDS ORDERED: EZETIMIBE 10 MG TAB PO SCH (09:00)
[2019-09-01] MEDS ORDERED: BUPROPION HCL 150 MG TABCR PO SCH (09:00)
[2019-09-01] MEDS ORDERED: AMIODARONE HCL 200 MG TAB PO SCH (09:00)
[2019-09-01] MEDS: LORAZEPAM 0.5 MG TAB PO SCH (09:08)
[2019-09-01] MEDS: GABAPENTIN 300 MG CAP PO SCH (09:08)
[2019-09-01] MEDS: SEVELAMER CARBONATE 800 MG TAB PO SCH ×2 (09:08→13:07)
[2019-09-01] MEDS: INSULIN LISPRO 100 UNIT/1 ML 3ML VIAL SQ SCH ×2 (09:09→11:30)
[2019-09-01] MEDS: CYCLOBENZAPRINE HCL 10 MG TAB PO PRN (09:23)
[2019-09-01 11:58] VITALS: BP 105/53
[2019-09-01] MEDS ORDERED: IOPAMIDOL 370 MG/ML 200 ML INFUS..BTL INJ ONE (14:13)
[2019-09-01] MEDS ORDERED: SODIUM CHLORIDE 0.9% 50ML 50 ML ONE (14:13)
--- NOTE | 2019-09-01 14:41 | NUR ---
CALL TO THE PT TO DISCUSS HOME HEALTH AND CHOICE. PT STATES SHE IS ALREADY ON SERVICE W [facility]. STATES SHE DID NOT HAVE THE #, BUT ASK FOR JAMILA. CHOICE LETTER SIGNED. CALL TO [facility] @ OFF: [phone] / FAX: [phone]. SPOKE Renetta MARINO. CONFIRMED PT AOS. REFERRAL WAS FAXED. IMM LETTER EXPLAINED TO PT. PT VERBALIZED UNDERSTANDING. IMM LETTER SIGNED. COPY TO PT AND COPY TO CHART.
--- NOTE | 2019-09-01 14:48 | NUR ---
HOME HEALTH DISCHARGE NOTE PATIENT ADDRESS WHERE SERVICE WILL BE RECEIVED: [facility] [facility] [place] [address] PATIENT CONTACT NUMBER: [phone] NAME OF HOME HEALTH COMPANY: [facility] TELEPHONE/FAX NUMBER OF COMPANY: OFF: [phone] / FAX: [phone] SERVICES TO RECEIVE: SN / PT EVAL AND TREAT ANTICIPATED DATE SERVICES WILL BEGIN: 09/02/2019 Please call the company above if you have not received a call to schedule a home visit within 24 hours of discharge.
[2019-09-01] MEDS: TRAMADOL HCL 50 MG TAB PO PRN (15:45)
--- NOTE | 2019-09-01 15:54 | NUR ---
Nutrition Intervention Note RD Recommendation(s) for Physician: - Recommend renal/diabetic diet - Recommend vitamin C and zinc to promote wound healing Plan of Care: RD following, monitoring for tolerance and adequacy Nutrition reason for involvement: pressure ulcer RD Assessment (09/01/19) Pt is a 68 year old female admitted with ataxic gait and weakness. Pt reports she has been eating >50% of her meals. It is recorded that pt consumed 75% of her breakfast this morning. No weight loss reported and pt mentioned she usually weighs 184 lbs. No N/V/D/C or chewing/swallowing issues. 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 Offered pt Edward nutrition supplement to promote wound healing, but pt declined. Pt mentioned she had tried the supplement before and she vomited every time she consumed it. Will continue to monitor. Principal Problems/Diagnoses: ataxic gait, weakness PMH: Diabetes, end-organ damage including coronary artery disease, end-stage renal disease, retinopathy, poor vision, almost legally blind, peripheral neuropathy, secondary hyperparathyroidism, anemia, chronic kidney disease, atrial fibrillation and status post ablation in 2019, minimal coronary artery disease, left ventricular hypertrophy, rheumatoid arthritis, prior cholecystectomy, appendectomy, hysterectomy, and a colostomy. GI: soft, non-tender abdomen, pt has a colostomy Skin: stage 4 sacrum pressure ulcer Labs: (08/31) Na 133, BUN 31, Cr 5.73, Glu 226, HgbA1c 8.2% Meds: Renvela, pepcid, levothyroxine, insulin, zofran, warfarin Ht:60 inches (per pt) Wt: 180 lbs BMI: 35.1 kg/m2 IBW: 100 lbs Malnutrition Evaluation (09/01/19) The patient does not meet criteria for a specified degree of malnutrition at this time. Will re-evaluate at follow-up as appropriate. Nutrition Prescription (Diet Order): renal Estimated Nutritional Needs: 5962-9963 calories/day (22-25 kcal/kg IBW) 68-91 g protein/day (1.5-2 g pro/kg IBW) Diet Adequacy: Meeting calorie needs, Meeting protein needs Tolerance: Tolerating PO Diet Education Needs Assessment: Pt declined the need for diet education Nutrition Care Level: low Nutrition Diagnosis: Increased nutrient needs related to increased demand for protein and kcal as evidenced by stage 4 sacral pressure ulcer. Goal: Patient will meet 75-100% of estimated needs by follow up Progress: N/A Interventions: -mineral and carbohydrate modified diet, Commercial beverage, Recommended Modifications Monitoring/Evaluation: -Total energy intake, Total protein intake, Modified diet, Liquid supplement, Weight change Signed: Jeannette Espinosa RD, LD
[2019-09-01 16:06] VITALS: BP 128/64
--- NOTE | 2019-09-01 16:35 | NUR ---
Patient received discharge order from Dr. mSith's [employer]ARD[employer] CONTROL CLERK, Nimco. Patient received all of her discharge paperwork and had no questions or complaints. Patient's IV removed at 1600. Patient wheeled to front door via wheelchair and brought to her 's car at 1619.
[2019-09-01] MEDS ORDERED: WARFARIN SOD 3 MG TAB PO SCH (17:00)
--- NOTE | 2019-09-02 01:57 | Discharge Summary ---
ADMISSION DIAGNOSES: Weakness, ataxia, end-stage renal disease, hypertension with end-stage renal disease, type 2 diabetes with end-stage renal disease, hypothyroidism, hyperlipidemia, atrial fibrillation, sacral wound present on admission. DISCHARGE DIAGNOSES: Weakness, ataxia, end-stage renal disease, hypertension with end-stage renal disease, type 2 diabetes with end-stage renal disease, hypothyroidism, hyperlipidemia, atrial fibrillation, sacral wound present on admission, rule out cerebrovascular accident. HISTORY: End-stage renal disease with dialysis Wednesday, Wednesday, Wednesday. Hypertension, type 2 diabetes, hyperlipidemia, hypothyroidism, RLS, atrial fibrillation, TIA, anxiety, depression, RA. SURGICAL HISTORY: Appendectomy, x2, left AV fistula, colostomy, right breast lumpectomy, cardiac ablation, and pain pump. FAMILY HISTORY: The patient's mom and dad had diabetes. The patient's uncle and aunt had cancer. SOCIAL HISTORY: Noncontributory. HOSPITAL COURSE: A 68-year-old female, admits with complaints of weakness and ataxia since last night. On admission, CT of the brain showed no acute abnormality. CTA of the brain showed no high-grade cervical or intracranial arterial stenosis or occlusion or vascular malformation. MRI of the brain again showed no acute abnormality. TSH is within normal limits as are electrolytes. The patient is feeling much better and is ready for discharge home. Home physical therapy was arranged prior to discharge. She will follow up with primary care in 1 to 2 weeks. The patient will also follow up with Dr. Mcneal for the chronic stage IV ulcer on her sacrum, which he was packing. She will continue her dialysis as schedule. The patient's understand discharge instructions and agreed to plan. Vital signs stable. The patient is afebrile. Dictated by Nimco Cortes NP MD MARY ALICE Mcknight/MODL /[id number]
== END 2019-09-01 16:19 | disposition home or self-care (01) ==
LOC: ER 10:44 → ERHOLD 13:13 → MED/SURG3 15:27
PROVIDERS: ADMIT Internal Medicine; ATTEND Internal Medicine
DX: I12.0 Hypertensive chronic kidney disease with stage 5 chronic kidney disease or end stage renal disease (principal); N18.6 End stage renal disease; Z99.2 Dependence on renal dialysis; E11.22 Type 2 diabetes mellitus with diabetic chronic kidney disease; E03.9 Hypothyroidism, unspecified; G25.81 Restless legs syndrome; Z86.73 Personal history of transient ischemic attack (TIA), and cerebral infarction without residual deficits; F32.9 Major depressive disorder, single episode, unspecified; M06.9 Rheumatoid arthritis, unspecified; E21.3 Hyperparathyroidism, unspecified; R42 Dizziness and giddiness
CPT/HCPCS: 36415 ×2; 70450; 70496; 70498; 70551; 80053 ×2; 82550; 82553; 82948 ×2; 83036; 84443; 84484; 85025 ×2; 85610; 86705; 86706; 87340; 87635; 90970; 93005; 93306; 93880; 97116; 97161; 97530; 99284; G0378 ×2; J1815; J7030; J7050; Q9967 ×2

== ENCOUNTER 2020-03-16 18:54 | Emergency (ER) | payer MEDICARE ==
[~2020-03-16] VITALS: Ht 152.4 cm; Wt 83.9 kg
[~2020-03-16 18:54] MED LIST changes: +CYCLOBENZAPRINE10 MG PO
[2020-03-16] MEDS ORDERED: FAMOTIDINE 20 MG TAB PO ONE (19:45)
[2020-03-16] MEDS ORDERED: MORPHINE SULFATE INJ 4 MG/ML INJ 1ML IM ONE (19:45)
[2020-03-16] MEDS ORDERED: ONDANSETRON HCL 4 MG ORAL DISINTEGRATING TAB PO ONE (19:45)
[2020-03-16] MEDS ORDERED: FAMOTIDINE 20 MG TAB ONE (19:57)
[2020-03-16] MEDS ORDERED: MORPHINE SULFATE INJ 4 MG/ML INJ 1ML ONE (19:57)
[2020-03-16] MEDS ORDERED: PROMETHAZINE HCL (IM) 25 MG/ML VIAL IM ONE ×2 (21:00→21:41)
[2020-03-16 21:57] VITALS: BP 148/53
[2020-03-16] MEDS ORDERED: NEURONTIN400 MG PO (22:07)
[2020-03-16] MEDS ORDERED: PREDNISONE20 MG PO (22:07)
[2020-03-16] MEDS ORDERED: ONDANSETRON ODT8 MG PO (22:07)
[2020-03-16] MEDS ORDERED: BENADRYL25 M1 PO (22:07)
== END 2020-03-16 22:25 | disposition home or self-care (01) ==
LOC: FSED 19:20
DX: M54.30 Sciatica, unspecified side (principal); G62.9 Polyneuropathy, unspecified; G43.909 Migraine, unspecified, not intractable, without status migrainosus; E11.22 Type 2 diabetes mellitus with diabetic chronic kidney disease; N18.6 End stage renal disease; Z99.2 Dependence on renal dialysis; Z93.3 Colostomy status
CPT/HCPCS: 70450; 96372; 99283; J2270; J2550; Q0162

== ENCOUNTER 2020-03-21 05:28 | Emergency (ER) | payer MEDICARE ==
[~2020-03-21] VITALS: Ht 170.2 cm; Wt 83.9 kg
[~2020-03-21 05:28] MED LIST changes: +BENADRYL25 M1 PO; +NEURONTIN400 MG PO; +ONDANSETRON ODT8 MG PO; +PREDNISONE20 MG PO
[2020-03-21] MEDS ORDERED: MORPHINE SULFATE INJ 4 MG/ML INJ 1ML IM STA (05:53)
[2020-03-21] MEDS ORDERED: CYCLOBENZAPRINE HCL 10 MG TAB PO ONE (06:00)
[2020-03-21] MEDS ORDERED: MORPHINE SULFATE INJ 4 MG/ML INJ 1ML ONE (06:21)
[2020-03-21] MEDS ORDERED: CYCLOBENZAPRINE HCL 10 MG TAB ONE (06:23)
[2020-03-21] MEDS ORDERED: MACROBID 100 M100 MG PO (06:42)
== END 2020-03-21 06:53 | disposition home or self-care (01) ==
LOC: FSED 06:00
DX: G25.81 Restless legs syndrome (principal); N30.00 Acute cystitis without hematuria; E11.40 Type 2 diabetes mellitus with diabetic neuropathy, unspecified; E11.22 Type 2 diabetes mellitus with diabetic chronic kidney disease; N18.6 End stage renal disease; Z99.2 Dependence on renal dialysis; I48.91 Unspecified atrial fibrillation
CPT/HCPCS: 81003; 99283; J2270

== ENCOUNTER 2020-03-30 01:22 | Emergency (ER) | payer MEDICARE ==
[~2020-03-30] VITALS: Ht 152.4 cm; Wt 81.6 kg
[~2020-03-30 01:22] MED LIST changes: +MACROBID 100 M100 MG PO
[2020-03-30] MEDS ORDERED: LYRICA150 MG PO (02:11)
[2020-03-30 02:19] VITALS: BP 128/59
== END 2020-03-30 02:19 | disposition home or self-care (01) ==
LOC: FSED 02:10
DX: M79.605 Pain in left leg (principal); M79.604 Pain in right leg; E11.42 Type 2 diabetes mellitus with diabetic polyneuropathy; E11.22 Type 2 diabetes mellitus with diabetic chronic kidney disease; N18.6 End stage renal disease; Z99.2 Dependence on renal dialysis; Z98.0 Intestinal bypass and anastomosis status; Z93.3 Colostomy status
CPT/HCPCS: 99282

== ENCOUNTER 2020-04-06 07:10 | Emergency (ER) | payer MEDICARE ==
[~2020-04-06] VITALS: Ht 152.4 cm; Wt 81.6 kg
[~2020-04-06 07:10] MED LIST changes: +LYRICA150 MG PO
[2020-04-06] MEDS ORDERED: LYRICA150 MG PO (07:40)
== END 2020-04-06 08:02 | disposition home or self-care (01) ==
LOC: FSED 08:02
DX: M79.605 Pain in left leg (principal); M79.604 Pain in right leg; E11.42 Type 2 diabetes mellitus with diabetic polyneuropathy; E11.22 Type 2 diabetes mellitus with diabetic chronic kidney disease; N18.6 End stage renal disease; Z93.3 Colostomy status
CPT/HCPCS: 99282

== ENCOUNTER 2020-05-02 00:32 | Emergency (ER) | payer MEDICARE ==
[~2020-05-02] VITALS: Ht 170.2 cm; Wt 81.6 kg
[2020-05-02] MEDS ORDERED: LYRICA150 MG PO (01:08)
[2020-05-02] MEDS ORDERED: ULTRAM 50MG50 MG PO (01:08)
[2020-05-02] MEDS ORDERED: ONDANSETRON HCL 4 MG ORAL DISINTEGRATING TAB PO ONE (01:30)
[2020-05-02] MEDS ORDERED: MORPHINE SULFATE INJ 4 MG/ML INJ 1ML IM ONE (01:30)
[2020-05-02] MEDS ORDERED: MORPHINE SULFATE INJ 4 MG/ML INJ 1ML ONE (01:43)
[2020-05-02] MEDS ORDERED: ONDANSETRON HCL 4 MG ORAL DISINTEGRATING TAB ONE ×2 (01:44→01:46)
== END 2020-05-02 02:03 | disposition home or self-care (01) ==
LOC: FSED 00:45
DX: M54.42 Lumbago with sciatica, left side (principal); M54.41 Lumbago with sciatica, right side; G62.9 Polyneuropathy, unspecified; I12.0 Hypertensive chronic kidney disease with stage 5 chronic kidney disease or end stage renal disease; E11.22 Type 2 diabetes mellitus with diabetic chronic kidney disease; N18.6 End stage renal disease; Z99.2 Dependence on renal dialysis; Z98.0 Intestinal bypass and anastomosis status; Z93.3 Colostomy status
CPT/HCPCS: 99283; J2270; Q0162

== ENCOUNTER 2020-05-11 03:45 | Emergency (ER) | payer MEDICARE ==
[~2020-05-11] VITALS: Ht 152.4 cm; Wt 83.5 kg
[2020-05-11] MEDS ORDERED: TYLENOL # 31 EA PO (04:27)
[2020-05-11] MEDS: HYDROCODONE/APAP 5MG-325MG TAB PO ONE (04:30)
[2020-05-11 04:35] VITALS: BP 121/57
== END 2020-05-11 04:35 | disposition home or self-care (01) ==
LOC: FSED 04:00
DX: M79.605 Pain in left leg (principal); M79.604 Pain in right leg; G62.9 Polyneuropathy, unspecified; E11.22 Type 2 diabetes mellitus with diabetic chronic kidney disease; N18.6 End stage renal disease; Z99.2 Dependence on renal dialysis; E78.5 Hyperlipidemia, unspecified; I48.91 Unspecified atrial fibrillation; J44.9 Chronic obstructive pulmonary disease, unspecified; I50.9 Heart failure, unspecified; M54.9 Dorsalgia, unspecified; G89.29 Other chronic pain; Z86.73 Personal history of transient ischemic attack (TIA), and cerebral infarction without residual deficits; Z93.3 Colostomy status
CPT/HCPCS: 99283

== ENCOUNTER 2020-09-03 03:24 | Emergency (ER) | payer MEDICARE ==
[~2020-09-03] VITALS: Ht 152.4 cm; Wt 85.7 kg
[~2020-09-03 03:24] MED LIST changes: +TYLENOL # 31 EA PO
[2020-09-03] MEDS ORDERED: KETOROLAC TROMETHAMINE 30 MG/ML VIAL IM STA (03:57)
[2020-09-03] MEDS ORDERED: HYDROCODONE/APAP 5MG-325MG TAB PO ONE (04:00)
[2020-09-03 04:10] VITALS: BP 184/80
== END 2020-09-03 04:14 | disposition home or self-care (01) ==
LOC: FSED 03:55
DX: M54.41 Lumbago with sciatica, right side (principal); K04.7 Periapical abscess without sinus; E11.22 Type 2 diabetes mellitus with diabetic chronic kidney disease; N18.6 End stage renal disease; Z99.2 Dependence on renal dialysis; J44.9 Chronic obstructive pulmonary disease, unspecified; I50.9 Heart failure, unspecified; E78.5 Hyperlipidemia, unspecified; I48.91 Unspecified atrial fibrillation; G89.29 Other chronic pain
CPT/HCPCS: 96372; 99283; J1885

== ENCOUNTER 2020-09-26 01:44 | Emergency (ER) | payer MEDICARE ==
[~2020-09-26] VITALS: Ht 170.2 cm; Wt 85.7 kg
[2020-09-26] MEDS ORDERED: TRAMADOL HCL 50 MG TAB PO STA (02:20)
[2020-09-26] MEDS ORDERED: KETOROLAC TROMETHAMINE 60 MG/2 ML VIAL IM ONE (02:30)
== END 2020-09-26 02:55 | disposition home or self-care (01) ==
LOC: FSED 02:20
DX: M54.42 Lumbago with sciatica, left side (principal); M54.41 Lumbago with sciatica, right side; E11.22 Type 2 diabetes mellitus with diabetic chronic kidney disease; N18.6 End stage renal disease; Z99.2 Dependence on renal dialysis; I48.91 Unspecified atrial fibrillation; E03.9 Hypothyroidism, unspecified; J44.9 Chronic obstructive pulmonary disease, unspecified; M54.9 Dorsalgia, unspecified; G89.29 Other chronic pain; Z93.3 Colostomy status
CPT/HCPCS: 99283; J1885

== ENCOUNTER 2020-10-19 02:57 | Emergency (ER) | payer MEDICARE ==
[~2020-10-19] VITALS: Ht 170.2 cm; Wt 85.7 kg
[2020-10-19] MEDS ORDERED: KETOROLAC TROMETHAMINE 30 MG/ML VIAL IM PRN (03:15)
[2020-10-19] MEDS ORDERED: KETOROLAC TROMETHAMINE 30 MG/ML VIAL ONE (03:17)
== END 2020-10-19 04:20 | disposition home or self-care (01) ==
LOC: ER 03:57
DX: M54.31 Sciatica, right side (principal); Z88.0 Allergy status to penicillin
CPT/HCPCS: 99282; J1885

== ENCOUNTER 2020-10-20 22:39 | Emergency (ER) | payer MEDICARE ==
[~2020-10-20] VITALS: Ht 170.2 cm; Wt 85.7 kg
[2020-10-20] MEDS ORDERED: HYDROCODONE/APAP 10MG-325MG TAB ONE (23:21)
[2020-10-20] MEDS ORDERED: KETOROLAC TROMETHAMINE 30 MG/ML VIAL ONE (23:22)
[2020-10-21] MEDS ORDERED: KETOROLAC TROMETHAMINE 30 MG/ML VIAL IV STA (00:19)
[2020-10-21] MEDS ORDERED: LIDOCAINE 4% PATCH TP ONE ×2 (00:23→00:30)
[2020-10-21] MEDS ORDERED: HYDROCODONE/APAP 10MG-325MG TAB PO ONE (00:30)
[2020-10-21 00:43] LABS: ALBUMIN 3.5 g/dL (3.5-5.0); ALBUMIN/GLOBULIN RATIO 0.9 (0.8-2.0); ANION GAP 21.6 mmol/L (8-16); CALCIUM 8.9 mg/dL (8.4-10.2); CREATININE, SERUM 6.24 mg/dL (0.57-1.11); POTASSIUM 4.6 mmol/L (3.5-5.1)
[2020-10-21 00:50] LABS: BASOPHILS # (AUTO) 0.1 (0.0-0.1); BASOPHILS % 1.1 % (0.0-1.0); EOSINOPHILS # (AUTO) 0.3 (0.0-0.4); EOSINOPHILS % 5.1 % (0.0-6.0); HEMATOCRIT 35.2 % (34.2-44.1); HEMOGLOBIN 11.3 g/dL (12.0-16.0); LYMPHOCYTES # (AUTO) 1.1 (1.0-3.2); LYMPHOCYTES % 19.6 % (18.0-39.1); MEAN CORPUSCULAR HGB CONC 32.1 g/dL (31-35); MEAN CORPUSCULAR VOLUME 93.4 fL (81-99); MONOCYTES # (AUTO) 0.5 (0.2-0.8); MONOCYTES % 9.4 % (4.4-11.3); NEUTROPHILS # (AUTO) 3.6 (2.1-6.9); NEUTROPHILS % 64.3 % (38.7-80.0); PLATELET COUNT 120 x10e3/uL (140-360); RED BLOOD COUNT 3.77 x10e6/uL (3.6-5.1); RED CELL DISTRIBUTION WIDTH 15.2 % (11.7-14.4)
[2020-10-21] MEDS ORDERED: SODIUM CHLORIDE 0.9% 50ML 50 ML ONE (01:11)
[2020-10-21] MEDS ORDERED: IOPAMIDOL 370 MG/ML 200 ML INFUS..BTL INJ ONE (01:12)
== END 2020-10-21 05:06 | disposition home or self-care (01) ==
LOC: ER 10-21 02:29
DX: M54.5 Low back pain (principal); E11.22 Type 2 diabetes mellitus with diabetic chronic kidney disease; I12.0 Hypertensive chronic kidney disease with stage 5 chronic kidney disease or end stage renal disease; N18.6 End stage renal disease; Z99.2 Dependence on renal dialysis; M79.662 Pain in left lower leg; M79.661 Pain in right lower leg; Z79.4 Long term (current) use of insulin
CPT/HCPCS: 36415; 72131; 74177; 80053; 85025; 99284; J1885; Q9967

== ENCOUNTER 2020-12-20 22:28 | Emergency (ER) | payer MEDICARE ==
[~2020-12-20] VITALS: Ht 152.4 cm; Wt 90.7 kg
[2020-12-20] MEDS ORDERED: KETOROLAC TROMETHAMINE 30 MG/ML VIAL IM ONE (23:45)
[2020-12-21] VITALS: BP 115/74
[2020-12-21] MEDS ORDERED: KETOROLAC TROMETHAMINE 30 MG/ML VIAL ONE (00:02)
== END 2020-12-21 | disposition home or self-care (01) ==
LOC: FSED 22:48
DX: M54.42 Lumbago with sciatica, left side (principal); M54.41 Lumbago with sciatica, right side; E11.22 Type 2 diabetes mellitus with diabetic chronic kidney disease; N18.6 End stage renal disease; Z99.2 Dependence on renal dialysis; E11.42 Type 2 diabetes mellitus with diabetic polyneuropathy; E78.5 Hyperlipidemia, unspecified; M54.9 Dorsalgia, unspecified; G89.29 Other chronic pain
CPT/HCPCS: 96372; 99282; J1885

== ENCOUNTER 2020-12-26 17:10 | Emergency (ER) | payer MEDICARE ==
[~2020-12-26] VITALS: Ht 170.2 cm; Wt 90.7 kg
[2020-12-26] MEDS ORDERED: KETOROLAC TROMETHAMINE 30 MG/ML VIAL IM STA (17:25)
[2020-12-26] MEDS ORDERED: DEXAMETHASONE SOD PHOS 10 MG/1 ML VIAL IM STA (17:25)
[2020-12-26] MEDS ORDERED: ACETAMINOPHEN-1 EAC4 PO (17:40)
[2020-12-26] MEDS ORDERED: KETOROLAC TROMETHAMINE 30 MG/ML VIAL ONE (17:47)
[2020-12-26] MEDS ORDERED: DEXAMETHASONE SOD PHOS INJ 4 MG/ML SDV ONE (17:47)
== END 2020-12-26 18:23 | disposition home or self-care (01) ==
LOC: FSED 17:15
DX: M54.5 Low back pain (principal); G89.29 Other chronic pain; I12.0 Hypertensive chronic kidney disease with stage 5 chronic kidney disease or end stage renal disease; E11.22 Type 2 diabetes mellitus with diabetic chronic kidney disease; N18.6 End stage renal disease; Z99.2 Dependence on renal dialysis; I50.9 Heart failure, unspecified; J44.9 Chronic obstructive pulmonary disease, unspecified; E78.5 Hyperlipidemia, unspecified; Z86.73 Personal history of transient ischemic attack (TIA), and cerebral infarction without residual deficits; Z93.3 Colostomy status
CPT/HCPCS: 99283; J1100; J1885

== ENCOUNTER 2020-12-31 02:43 | Emergency (ER) | payer MEDICARE ==
[~2020-12-31] VITALS: Ht 170.2 cm; Wt 90.7 kg
[~2020-12-31 02:43] MED LIST changes: +ACETAMINOPHEN-1 EAC4 PO
[2020-12-31 03:57] LABS: BASOPHILS % 0.4 % (0.0-1.0); EOSINOPHILS # (AUTO) 0.2 (0.0-0.4); HEMATOCRIT 38.2 % (34.2-44.1); HEMOGLOBIN 12.1 g/dL (12.0-16.0); LYMPHOCYTES # (AUTO) 0.8 (1.0-3.2); LYMPHOCYTES % 11.3 % (18.0-39.1); MEAN CORPUSCULAR HEMOGLOBIN 29.8 pg (28-32); MEAN CORPUSCULAR HGB CONC 31.7 g/dL (31-35); MEAN CORPUSCULAR VOLUME 94.1 fL (81-99); MONOCYTES # (AUTO) 0.4 (0.2-0.8); MONOCYTES % 5.9 % (4.4-11.3); NEUTROPHILS # (AUTO) 5.3 (2.1-6.9); NEUTROPHILS % 79.1 % (38.7-80.0); PLATELET COUNT 154 x10e3/uL (140-360); RED BLOOD COUNT 4.06 x10e6/uL (3.6-5.1); RED CELL DISTRIBUTION WIDTH 14.1 % (11.7-14.4)
[2020-12-31 04:10] LABS: ALBUMIN 3.5 g/dL (3.5-5.0); ALBUMIN/GLOBULIN RATIO 0.9 (0.8-2.0); CALCIUM 8.2 mg/dL (8.4-10.2); CREATININE, SERUM 8.43 mg/dL (0.57-1.11)
[2020-12-31 06:10] VITALS: BP 130/57
== END 2020-12-31 04:50 | disposition home or self-care (01) ==
LOC: ER 02:54
DX: R07.89 Other chest pain (principal); R06.00 Dyspnea, unspecified; I12.0 Hypertensive chronic kidney disease with stage 5 chronic kidney disease or end stage renal disease; E11.22 Type 2 diabetes mellitus with diabetic chronic kidney disease; N18.6 End stage renal disease; Z99.2 Dependence on renal dialysis; J44.9 Chronic obstructive pulmonary disease, unspecified; I50.9 Heart failure, unspecified; I48.91 Unspecified atrial fibrillation; Z20.822 Contact with and (suspected) exposure to COVID-19; Z86.73 Personal history of transient ischemic attack (TIA), and cerebral infarction without residual deficits
CPT/HCPCS: 36415; 71045; 80053; 84484; 85025; 93005; 99284; U0002

== ENCOUNTER 2021-01-04 09:54 | Emergency (ER) | payer MEDICARE ==
[~2021-01-04] VITALS: Ht 170.2 cm; Wt 90.7 kg
[2021-01-04] MEDS ORDERED: HYDROXYZINE HCL 25 MG TAB PO STA (10:06)
[2021-01-04] MEDS ORDERED: ROPINIROLE HC0.25 MG PO (10:26)
== END 2021-01-04 10:52 | disposition home or self-care (01) ==
LOC: ER 10:09
DX: L29.9 Pruritus, unspecified (principal); I12.0 Hypertensive chronic kidney disease with stage 5 chronic kidney disease or end stage renal disease; E11.22 Type 2 diabetes mellitus with diabetic chronic kidney disease; N18.6 End stage renal disease; Z99.2 Dependence on renal dialysis; J44.9 Chronic obstructive pulmonary disease, unspecified; I50.9 Heart failure, unspecified; E03.9 Hypothyroidism, unspecified
CPT/HCPCS: 99282; J3410

== ENCOUNTER 2021-02-16 01:01 | Emergency (ER) | payer MEDICARE ==
[~2021-02-16] VITALS: Ht 152.4 cm; Wt 91.6 kg
[~2021-02-16 01:01] MED LIST changes: +ROPINIROLE HC0.25 MG PO
[2021-02-16] MEDS ORDERED: KETOROLAC TROMETHAMINE 60 MG/2 ML VIAL IM ONE (01:30)
[2021-02-16] MEDS ORDERED: DEXAMETHASONE SOD PHOS 10 MG/1 ML VIAL IM ONE (01:30)
[2021-02-16] MEDS ORDERED: DEXAMETHASONE SOD PHOS INJ 4 MG/ML SDV ONE (01:36)
[2021-02-16] MEDS ORDERED: KETOROLAC TROMETHAMINE 30 MG/ML VIAL ONE (01:37)
[2021-02-16 01:43] VITALS: BP 186/67
== END 2021-02-16 01:43 | disposition home or self-care (01) ==
LOC: FSED 01:18
DX: M54.41 Lumbago with sciatica, right side (principal); G89.29 Other chronic pain; I12.0 Hypertensive chronic kidney disease with stage 5 chronic kidney disease or end stage renal disease; E11.22 Type 2 diabetes mellitus with diabetic chronic kidney disease; N18.6 End stage renal disease; Z99.2 Dependence on renal dialysis; J44.9 Chronic obstructive pulmonary disease, unspecified; I50.9 Heart failure, unspecified; E78.5 Hyperlipidemia, unspecified; E03.9 Hypothyroidism, unspecified; Z86.73 Personal history of transient ischemic attack (TIA), and cerebral infarction without residual deficits
CPT/HCPCS: 96372; 99282; J1100 ×2; J1885

== ENCOUNTER 2021-03-07 10:37 | Emergency (ER) | payer MEDICARE ==
[~2021-03-07] VITALS: Ht 170.2 cm; Wt 91.6 kg
[2021-03-07] MEDS ORDERED: CEFTRIAXONE 1 GM VIAL IM ONE (11:00)
[2021-03-07] MEDS ORDERED: ACETAMINOPHEN-1 EAC4 PO (11:07)
[2021-03-07] MEDS ORDERED: ONDANSETRON ODT4 MG PO (11:07)
[2021-03-07] MEDS ORDERED: CEFDINIR300 MG PO (11:07)
[2021-03-07] MEDS ORDERED: ONDANSETRON HCL 4 MG ORAL DISINTEGRATING TAB ONE (11:09)
[2021-03-07] MEDS ORDERED: LIDOCAINE HCL 1% LOCAL INJ 20 ML VIAL ONE (11:10)
[2021-03-07] MEDS ORDERED: ONDANSETRON HCL 4 MG ORAL DISINTEGRATING TAB PO ONE (11:15)
== END 2021-03-07 11:20 | disposition home or self-care (01) ==
LOC: FSED 10:56
DX: H66.91 Otitis media, unspecified, right ear (principal); J06.9 Acute upper respiratory infection, unspecified; I12.0 Hypertensive chronic kidney disease with stage 5 chronic kidney disease or end stage renal disease; E11.22 Type 2 diabetes mellitus with diabetic chronic kidney disease; N18.6 End stage renal disease; Z99.2 Dependence on renal dialysis; J44.9 Chronic obstructive pulmonary disease, unspecified; I50.9 Heart failure, unspecified; E03.9 Hypothyroidism, unspecified; E78.5 Hyperlipidemia, unspecified
CPT/HCPCS: 96372; 99283; J0696; J2001; Q0162

== ENCOUNTER 2021-03-11 10:43 | Emergency (ER) | payer MEDICARE ==
[~2021-03-11] VITALS: Ht 170.2 cm; Wt 91.6 kg
[~2021-03-11 10:43] MED LIST changes: +ONDANSETRON ODT4 MG PO
[2021-03-11] MEDS ORDERED: LIDOCAINE PAIN1 EACH TD (10:58)
[2021-03-11] MEDS ORDERED: TYLENOL325 MG PO (10:58)
== END 2021-03-11 11:10 | disposition home or self-care (01) ==
LOC: ER 10:53
DX: M62.838 Other muscle spasm (principal); I12.0 Hypertensive chronic kidney disease with stage 5 chronic kidney disease or end stage renal disease; E11.22 Type 2 diabetes mellitus with diabetic chronic kidney disease; N18.6 End stage renal disease; Z99.2 Dependence on renal dialysis; J44.9 Chronic obstructive pulmonary disease, unspecified; I50.9 Heart failure, unspecified; M54.9 Dorsalgia, unspecified; G89.29 Other chronic pain
CPT/HCPCS: 99282

== ENCOUNTER 2021-03-16 05:11 | Emergency (ER) | payer MEDICARE ==
[~2021-03-16] VITALS: Ht 170.2 cm; Wt 91.6 kg
[~2021-03-16 05:11] MED LIST changes: +LIDOCAINE PAIN1 EACH TD; +TYLENOL325 MG PO
[2021-03-16 06:02] LABS: CLARITY,URINE CLOUDY (CLEAR); COLOR,URINE OTHER (YELLOW)
[2021-03-16 06:03] LABS: KETONES,URINE NEGATIVE (NEGATIVE); LEUKOCYTE ESTERASE ,URINE NEGATIVE (NEGATIVE); NITRITE,URINE NEGATIVE (NEGATIVE); PROTEIN,URINE DIPSTICK 2+ (NEGATIVE); URINE UROBILINOGEN 0.2 mg/dL (0.2 - 1)
[2021-03-16 06:22] LABS: BACTERIA,URINE RARE /HPF; EPITHELIAL CELLS,URINE FEW /LPF
== END 2021-03-16 07:24 | disposition home or self-care (01) ==
LOC: ER 05:26
DX: B37.89 Other sites of candidiasis (principal); N39.0 Urinary tract infection, site not specified; I12.0 Hypertensive chronic kidney disease with stage 5 chronic kidney disease or end stage renal disease; E11.22 Type 2 diabetes mellitus with diabetic chronic kidney disease; N18.6 End stage renal disease; Z99.2 Dependence on renal dialysis; E78.5 Hyperlipidemia, unspecified; K21.9 Gastro-esophageal reflux disease without esophagitis; E03.9 Hypothyroidism, unspecified
CPT/HCPCS: 81001; 87086; 87186; 99283

== ENCOUNTER 2021-06-18 05:42 | Emergency (ER) | payer MEDICARE ==
[~2021-06-18] VITALS: Ht 170.2 cm; Wt 91.6 kg
[2021-06-18] MEDS ORDERED: ACETAMINOPHEN 325 MG TAB PO ONE (06:15)
[2021-06-18] MEDS ORDERED: PREDNISONE 20 MG TAB PO ONE (06:15)
[2021-06-18] MEDS ORDERED: KETOROLAC TROMETHAMINE 30 MG/ML VIAL IM ONE (06:15)
[2021-06-18] MEDS ORDERED: ACETAMINOPHEN500 MG PO (06:21)
[2021-06-18] MEDS ORDERED: ONDANSETRON ODT4 MG PO (06:21)
[2021-06-18] MEDS ORDERED: ULTRAM50 MG PO (06:21)
[2021-06-18] MEDS ORDERED: ONDANSETRON HCL 4 MG ORAL DISINTEGRATING TAB PO ONE (06:30)
[2021-06-18] MEDS ORDERED: ACETAMINOPHEN 325 MG TAB ONE (06:34)
[2021-06-18] MEDS ORDERED: PREDNISONE 20 MG TAB ONE (06:34)
[2021-06-18] MEDS ORDERED: KETOROLAC TROMETHAMINE 30 MG/ML VIAL ONE (06:34)
== END 2021-06-18 06:58 | disposition home or self-care (01) ==
LOC: FSED 06:09
DX: M54.42 Lumbago with sciatica, left side (principal); I12.0 Hypertensive chronic kidney disease with stage 5 chronic kidney disease or end stage renal disease; E11.22 Type 2 diabetes mellitus with diabetic chronic kidney disease; N18.6 End stage renal disease; Z99.2 Dependence on renal dialysis; J44.9 Chronic obstructive pulmonary disease, unspecified; E11.42 Type 2 diabetes mellitus with diabetic polyneuropathy; I50.9 Heart failure, unspecified; I48.91 Unspecified atrial fibrillation; E03.9 Hypothyroidism, unspecified; J45.909 Unspecified asthma, uncomplicated; Z86.73 Personal history of transient ischemic attack (TIA), and cerebral infarction without residual deficits; Z93.3 Colostomy status
CPT/HCPCS: 99282; J1885; J7512; Q0162

== ENCOUNTER 2021-06-28 09:40 | Emergency (ER) | payer MEDICARE ==
[~2021-06-28] VITALS: Ht 170.2 cm; Wt 91.6 kg
[~2021-06-28 09:40] MED LIST changes: +ACETAMINOPHEN500 MG PO
[2021-06-28] MEDS ORDERED: KETOROLAC TROMETHAMINE 60 MG/2 ML VIAL IM ONE (10:00)
[2021-06-28] MEDS ORDERED: ONDANSETRON HCL 4 MG ORAL DISINTEGRATING TAB PO ONE (10:00)
[2021-06-28] MEDS ORDERED: HYDROCODONE/APAP 5MG-325MG TAB PO ONE (10:00)
[2021-06-28] MEDS ORDERED: KETOROLAC TROMETHAMINE 30 MG/ML VIAL ONE (10:22)
== END 2021-06-28 10:32 | disposition home or self-care (01) ==
LOC: ER 09:45
DX: M54.42 Lumbago with sciatica, left side (principal); E11.42 Type 2 diabetes mellitus with diabetic polyneuropathy; I12.0 Hypertensive chronic kidney disease with stage 5 chronic kidney disease or end stage renal disease; E11.22 Type 2 diabetes mellitus with diabetic chronic kidney disease; N18.6 End stage renal disease; Z99.2 Dependence on renal dialysis; J44.9 Chronic obstructive pulmonary disease, unspecified; E78.5 Hyperlipidemia, unspecified; I50.9 Heart failure, unspecified; I48.91 Unspecified atrial fibrillation; E03.9 Hypothyroidism, unspecified; K21.9 Gastro-esophageal reflux disease without esophagitis; Z86.73 Personal history of transient ischemic attack (TIA), and cerebral infarction without residual deficits
CPT/HCPCS: 99282; J1885; Q0162

== ENCOUNTER 2021-07-07 17:24 | Emergency (ER) | payer MEDICARE ==
[~2021-07-07] VITALS: Ht 152.4 cm; Wt 91.6 kg
[2021-07-07] MEDS ORDERED: LYRICA75 MG PO (17:47)
== END 2021-07-07 18:08 | disposition home or self-care (01) ==
LOC: FSED 17:42
DX: M79.605 Pain in left leg (principal); M79.604 Pain in right leg; G57.03 Lesion of sciatic nerve, bilateral lower limbs; G25.81 Restless legs syndrome; I12.0 Hypertensive chronic kidney disease with stage 5 chronic kidney disease or end stage renal disease; E11.22 Type 2 diabetes mellitus with diabetic chronic kidney disease; N18.6 End stage renal disease; Z99.2 Dependence on renal dialysis; J44.9 Chronic obstructive pulmonary disease, unspecified; I50.9 Heart failure, unspecified; I48.91 Unspecified atrial fibrillation; K21.9 Gastro-esophageal reflux disease without esophagitis; M54.9 Dorsalgia, unspecified; G89.29 Other chronic pain; Z86.73 Personal history of transient ischemic attack (TIA), and cerebral infarction without residual deficits
CPT/HCPCS: 99282

== ENCOUNTER 2021-11-06 23:18 | Emergency (ER) | payer MEDICARE, OTHER ==
[~2021-11-06] VITALS: Ht 170.2 cm; Wt 91.6 kg
[~2021-11-06 23:18] MED LIST changes: +LYRICA75 MG PO
[2021-11-07] MEDS ORDERED: KETOROLAC TROMETHAMINE 60 MG/2 ML VIAL IM STA (00:09)
[2021-11-07] MEDS ORDERED: KETOROLAC TROMETHAMINE 30 MG/ML VIAL ONE (03:10)
[2021-11-07] MEDS ORDERED: ULTRAM 50MG50 MG PO (03:40)
== END 2021-11-07 03:42 | disposition home or self-care (01) ==
LOC: FSED 23:48
DX: M47.812 Spondylosis without myelopathy or radiculopathy, cervical region (principal); M19.011 Primary osteoarthritis, right shoulder; M19.071 Primary osteoarthritis, right ankle and foot; W06.XXXA Fall from bed, initial encounter; Y93.84 Activity, sleeping; Y92.89 Other specified places as the place of occurrence of the external cause; I12.0 Hypertensive chronic kidney disease with stage 5 chronic kidney disease or end stage renal disease; E11.22 Type 2 diabetes mellitus with diabetic chronic kidney disease; N18.6 End stage renal disease; Z99.2 Dependence on renal dialysis; J44.9 Chronic obstructive pulmonary disease, unspecified; I50.9 Heart failure, unspecified; E03.9 Hypothyroidism, unspecified; E78.5 Hyperlipidemia, unspecified; Z93.3 Colostomy status
CPT/HCPCS: 70450; 72100; 72125; 73030; 73630; 99284; J1885

== ENCOUNTER 2022-02-07 10:03 | Emergency (ER) | payer MEDICARE, OTHER ==
[~2022-02-07] VITALS: Ht 152.4 cm; Wt 90.8 kg
[2022-02-07] MEDS ORDERED: ONDANSETRON HCL 4 MG ORAL DISINTEGRATING TAB PO ONE (12:45)
[2022-02-07] MEDS ORDERED: ONDANSETRON HCL 4 MG ORAL DISINTEGRATING TAB ONE (12:46)
[2022-02-07] MEDS ORDERED: KETOROLAC TROMETHAMINE 30 MG/ML VIAL INJ STA (12:49)
[2022-02-07] MEDS ORDERED: ULTRAM 50MG50 MG PO (12:52)
[2022-02-07] MEDS ORDERED: KETOROLAC TROMETHAMINE 30 MG/ML VIAL ONE (13:08)
== END 2022-02-07 13:11 | disposition home or self-care (01) ==
LOC: FSED 10:43
DX: S16.1XXA Strain of muscle, fascia and tendon at neck level, initial encounter (principal); M54.50 Low back pain, unspecified; G89.29 Other chronic pain; W05.0XXA Fall from non-moving wheelchair, initial encounter; Y92.89 Other specified places as the place of occurrence of the external cause; E11.65 Type 2 diabetes mellitus with hyperglycemia; Z79.4 Long term (current) use of insulin; G62.9 Polyneuropathy, unspecified
CPT/HCPCS: 36415; 72125; 72131; 72192; 82948; 96372; 99283; J1885; Q0162